=== PATIENT | female | born 1945 | race Caucasian/White ===

== ENCOUNTER 2016-11-18 20:39 | Inpatient (IN) | payer MEDICARE, OTHER ==
[2016-11-18] MEDS ORDERED: IPRATROPIUM 0.5 MG/2.5 ML NEBU INHALATION STA (20:47)
[2016-11-18] MEDS ORDERED: ALBUTEROL NEBULIZED 2.5 MG/3 ML INHALATION STA (20:47)
--- NOTE | 2016-11-18 21:07 | ED ---
General Adult HPI - General Chief complaint: Shortness of Breath Stated complaint: WILDA Time Seen by Provider: 11/18/16 20:46 Source: patient, RN notes reviewed, old records reviewed Mode of arrival: ambulatory Limitations: no limitations - History of Present Illness Initial comments: This is a 62-year-old female to the ER for evaluation. Patient presented today for evaluation shortness of breath. Increasing shortness of breath and cough. Patient does have history of heart disease with stent. Patient states this feels like prior episodes of rigidity as that. Patient also admits that kidney disease. Patient denies any recent fever. No history of COPD and history of smoking. Patient denies any specific. Significant chest pain at this time. - Related Data Home Medications Medication Instructions Recorded Confirmed Cholecalciferol [Vitamin D3] 1,000 unit PO DAILY 03/13/16 11/18/16 Ferrous Sulfate [Iron (65 MG 325 mg PO BID 03/13/16 11/18/16 Elemental)] Furosemide [Lasix] 40 mg PO DAILY 03/13/16 11/18/16 Insulin Glargine [Lantus] 30 unit SQ QAM 03/13/16 11/18/16 amLODIPine BESYLATE [Norvasc] 10 mg PO DAILY 03/13/16 11/18/16 Calcium Acetate [Phoslo] 1,334 mg PO AC-TID 03/14/16 11/18/16 Insulin Aspart [NovoLOG] 0 - 15 unit SQ AC-TID 03/14/16 11/18/16 Aspirin EC [Ecotrin Low Dose] 81 mg PO HS 06/06/16 11/18/16 Cyanocobalamin [Vitamin B-12] 1,000 mcg PO DAILY 06/06/16 11/18/16 Folic Acid-Vit B Complex-Vit C 1 cap PO DAILY 06/06/16 11/18/16 [Nephrocaps] Atorvastatin [Lipitor] 80 mg PO HS 08/05/16 11/18/16 Citalopram Hydrobromide [CeleXA] 20 mg PO DAILY 08/05/16 11/18/16 Previous Rx's Medication Instructions Recorded Clopidogrel [Plavix] 75 mg PO DAILY #30 tab 03/16/16 Nitroglycerin Sl Tabs [Nitrostat] 0.4 mg SUBLINGUAL Q5M PRN #6 tab 04/27/16 Carvedilol [Coreg*] 12.5 mg PO BID-W/MEALS #60 tab 08/09/16 Allergies Allergy/AdvReac Type Severity Reaction Status Date / Time glyburide [From Diabeta] Allergy Rash/Hives Verified 11/18/16 20:44 Review of Systems ROS Statement: Those systems with pertinent positive or pertinent negative responses have been documented in the HPI. ROS Other: All systems not noted in ROS Statement are negative. Past Medical History Past Medical History: Diabetes Mellitus, Dialysis, Hyperlipidemia, Hypertension , Myocardial Infarction (RI), Renal Disease Additional Past Medical History / Comment(s): chronic renal failure stage V with dialysis 3 times a week-lt arm fistual, IDDM, pt states "per dialysis nurse who performed EKG and told pt she had an abnormal EKG and had had a RI in the past" but physician has never confirmed. NSTEMI 03/14/16, peripheral neuropathy bilateral feet cataracts bilaterally, UTI'S. Last Myocardial Infarction Date:: 03/14/16 History of Any Multi-Drug Resistant Organisms: None Reported Past Surgical History: Appendectomy, Cholecystectomy, Heart Catheterization, Heart Catheterization With Stent Additional Past Surgical History / Comment(s): 03/15/16 PTCA with stent to mid LAD,06-07-16 HEART CATH STENT TO PROX RCA. A/V fistula with revision L upper arm Past Anesthesia/Blood Transfusion Reactions: Motion Sickness Date of Last Stent Placement:: 03/15/16 AND 06-07-16 Past Psychological History: Depression Additional Psychological History / Comment(s): Pt resides with her son. She does not use any assistive device and she can drive. Smoking Status: Former smoker Past Alcohol Use History: None Reported Additional Past Alcohol Use History / Comment(s): Pt states she started smoking at age 21 (1965) and was a 5 cigarette a day smoker- she only smoked for about 6 months. Past Drug Use History: None Reported - Past Family History Father Family Medical History: Diabetes Mellitus Additional Family Medical History / Comment(s): Nayan of diabetic complications in his 40's Mother Family Medical History: Cancer, Myocardial Infarction (RI) Additional Family Medical History / Comment(s): Cancer unknown type. Mother of a RI in her early 50's General Exam Limitations: no limitations General appearance: alert, in no apparent distress, anxious, in distress, obese Head exam: Present: atraumatic, normocephalic, normal inspection Eye exam: Present: normal appearance, PERRL, EOMI. Absent: scleral icterus, conjunctival injection, periorbital swelling ENT exam: Present: normal exam, mucous membranes moist Neck exam: Present: normal inspection. Absent: tenderness, meningismus, lymphadenopathy Respiratory exam: Present: normal lung sounds bilaterally, respiratory distress , wheezes, accessory muscle use, decreased breath sounds, prolonged expiratory. Absent: rales, rhonchi, stridor Cardiovascular Exam: Present: normal rhythm, tachycardia, normal heart sounds. Absent: systolic murmur, diastolic murmur, rubs, gallop, clicks GI/Abdominal exam: Present: soft, normal bowel sounds. Absent: distended, tenderness, guarding, rebound, rigid Extremities exam: Present: normal inspection, full ROM, normal capillary refill. Absent: tenderness, pedal edema, joint swelling, calf tenderness Back exam: Present: normal inspection Neurological exam: Present: alert, oriented X3, CN II-XII intact Psychiatric exam: Present: normal affect, normal mood Skin exam: Present: warm, dry, intact, normal color. Absent: rash Course Vital Signs 11/18/16 11/18/16 11/18/16 20:41 20:55 21:24 Temperature 98.0 F Pulse Rate 100 79 Respiratory 28 H 22 Rate Blood Pressure 153/68 O2 Sat by Pulse 86 L Oximetry 11/18/16 21:31 Temperature Pulse Rate 79 Respiratory Rate Blood Pressure O2 Sat by Pulse Oximetry - Reevaluation(s) Reevaluation #1: 11/18/16 22:20 The patient states she does have improvement in her breathing after breathing treatment EKG Findings - EKG Comments: EKG Findings:: EKG shows normal sinus rhythm rate of 88, [place] 190, QRS 90, QTC 517 Medical Decision Making - Medical Decision Making 71 female here presenting with primarily shortness of breath, patient found to be in CHF with fluid overload secondary to renal failure, non-ST elevated RI, patient initially hypoxic improving on oxygen and mildly improved with breathing treatment, at this time not need further intervention including BiPAP will monitor for cardio respiratory resuscitation status, patient also noted to be a hypoglycemic secondary to bowl event, with aspect of dehydration possible DKA. Patient be admitted for insulin drip as well with IV hydration which will be generous S patient is also in CHF, monitoring of electrolytes - Lab Data Result diagrams: 11/18/16 21:10 11/18/16 21:10 Lab Results 11/18/16 11/18/16 11/18/16 Range/Units 21:10 21:10 21:10 WBC 8.3 (3.8-10.6) k/uL RBC 3.89 (3.80-5.40) m/uL Hgb 11.7 (11.4-16.0) gm/dL Hct 37.5 (34.0-46.0) % MCV 96.4 (80.0-100.0) fL MCH 30.0 (25.0-35.0) pg MCHC 31.1 (31.0-37.0) g/dL RDW 14.3 (11.5-15.5) % Plt Count 211 (150-450) k/uL Neutrophils % 71 % Lymphocytes % 15 % Monocytes % 7 % Eosinophils % 5 % Basophils % 1 % Neutrophils # 5.9 (1.3-7.7) k/uL Lymphocytes # 1.3 (1.0-4.8) k/uL Monocytes # 0.5 (0-1.0) k/uL Eosinophils # 0.4 (0-0.7) k/uL Basophils # 0.1 (0-0.2) k/uL PT (9.0-12.0) sec INR (<1.1) APTT (22.0-30.0) sec Sodium 131 L (137-145) mmol/L Potassium 3.7 (3.5-5.1) mmol/L Chloride 91 L (98-107) mmol/L Carbon Dioxide 23 (22-30) mmol/L Anion Gap 17 mmol/L BUN 38 H (7-17) mg/dL Creatinine 5.00 H* (0.52-1.04) mg/dL Est GFR (MDRD) Af Amer 10 (>60 ml/min/1.73 sqM) Est GFR (MDRD) Non-Af 9 (>60 ml/min/1.73 sqM) Glucose 752 H* (74-99) mg/dL Calcium 8.8 (8.4-10.2) mg/dL Magnesium 1.9 (1.6-2.3) mg/dL Total Bilirubin 0.5 (0.2-1.3) mg/dL AST 26 (14-36) U/L ALT 31 (9-52) U/L Alkaline Phosphatase 103 (38-126) U/L Total Creatine Kinase 89 (30-135) U/L CK-MB (CK-2) 1.9 (0.0-2.4) ng/mL CK-MB (CK-2) Rel Index 2.1 Troponin I 0.413 H* (0.000-0.034) ng/mL NT-Pro-B Natriuret Pep pg/mL Total Protein 6.1 L (6.3-8.2) g/dL Albumin 3.5 (3.5-5.0) g/dL 11/18/16 11/18/16 Range/Units 21:10 21:10 WBC (3.8-10.6) k/uL RBC (3.80-5.40) m/uL Hgb (11.4-16.0) gm/dL Hct (34.0-46.0) % MCV (80.0-100.0) fL MCH (25.0-35.0) pg MCHC (31.0-37.0) g/dL RDW (11.5-15.5) % Plt Count (150-450) k/uL Neutrophils % % Lymphocytes % % Monocytes % % Eosinophils % % Basophils % % Neutrophils # (1.3-7.7) k/uL Lymphocytes # (1.0-4.8) k/uL Monocytes # (0-1.0) k/uL Eosinophils # (0-0.7) k/uL Basophils # (0-0.2) k/uL PT 10.1 (9.0-12.0) sec INR 1.0 (<1.1) APTT 17.9 L (22.0-30.0) sec Sodium (137-145) mmol/L Potassium (3.5-5.1) mmol/L Chloride (98-107) mmol/L Carbon Dioxide (22-30) mmol/L Anion Gap mmol/L BUN (7-17) mg/dL Creatinine (0.52-1.04) mg/dL Est GFR (MDRD) Af Amer (>60 ml/min/1.73 sqM) Est GFR (MDRD) Non-Af (>60 ml/min/1.73 sqM) Glucose (74-99) mg/dL Calcium (8.4-10.2) mg/dL Magnesium (1.6-2.3) mg/dL Total Bilirubin (0.2-1.3) mg/dL AST (14-36) U/L ALT (9-52) U/L Alkaline Phosphatase (38-126) U/L Total Creatine Kinase (30-135) U/L CK-MB (CK-2) (0.0-2.4) ng/mL CK-MB (CK-2) Rel Index Troponin I (0.000-0.034) ng/mL NT-Pro-B Natriuret Pep 18023 pg/mL Total Protein (6.3-8.2) g/dL Albumin (3.5-5.0) g/dL - Radiology Data Radiology results: report reviewed (Chest x-rays positive for CHF), image reviewed Critical Care Time Critical Care Time: Yes Total Critical Care Time: 31 Disposition Clinical Impression: Congestive heart failure, Unstable angina pectoris, NSTEMI (non-ST elevated myocardial infarction), ESRD (end stage renal disease), Chest pain, Hyperglycemia, Hypoxia Disposition: ADMITTED IP TO THIS [facility] Condition: Serious Referrals: Jasbir Malone DO [Primary Care Provider] - 1-2 days
--- NOTE | 2016-11-18 21:08 | XR ---
EXAMINATION TYPE: XR chest 1V portable DATE OF EXAM: 11/18/2016 8:59 PM COMPARISON: 08/05/2016 HISTORY: Short of breath and cough TECHNIQUE: Single frontal view of the chest is obtained. FINDINGS: Heart appears enlarged. There is pulmonary interstitial edema. Thoracic aorta is atheromat ous. I see no pleural effusion. Bony thorax appears intact. IMPRESSION: Cardiomegaly. There is new pulmonary edema compared to last exam that is nonspecific and could relate to acute heart failure.
[2016-11-18] MEDS ORDERED: ALBUTEROL NEB (CONC) 2.5 MG/0.5 ML INHALATION STA (21:18)
[2016-11-18] MEDS ORDERED: IPRATROPIUM-ALBUTEROL 3 ML NEB INHALATION STA (21:19)
[2016-11-18 21:21] LABS: Basophils # (A) 0.1 k/uL (0-0.2); Basophils % (A) 1 %; CH 30.8; CHCM 32.1; Eosinophils # (A) 0.4 k/uL (0-0.7); Eosinophils % (A) 5 %; HCT 37.5 % (34.0-46.0); HDW 2.73; HGB 11.7 gm/dL (11.4-16.0); Luc # (Auto) 0.14; Luc % (Auto) 2; Lymphocytes # (A) 1.3 k/uL (1.0-4.8); Lymphocytes % (A) 15 %; MCHC 31.1 g/dL (31.0-37.0); MCV 96.4 fL (80.0-100.0); Mean Platelet Volume 7.8; Monocytes # (A) 0.5 k/uL (0-1.0); Monocytes % (A) 7 %; Neutrophils # (A) 5.9 k/uL (1.3-7.7); Neutrophils % (A) 71 %; RBC 3.89 m/uL (3.80-5.40); RDW 14.3 % (11.5-15.5); WBC 8.3 k/uL (3.8-10.6); WBC (Perox) 8.65
[2016-11-18 21:33] LABS: Potassium 3.7 mmol/L (3.5-5.1)
[2016-11-18 21:34] LABS: Calcium 8.8 mg/dL (8.4-10.2); Magnesium 1.9 mg/dL (1.6-2.3); Total Bilirubin 0.5 mg/dL (0.2-1.3); Total Protein 6.1 g/dL (6.3-8.2)
[2016-11-18 21:40] LABS: Prothrombin Time 10.1 sec (9.0-12.0)
[2016-11-18 21:50] LABS: Partial Thromboplastin Time 17.9 sec (22.0-30.0)
[2016-11-18 21:58] LABS: Creatine Kinase MB 1.9 ng/mL (0.0-2.4)
[2016-11-18 22:02] LABS: Troponin I 0.413 ng/mL (0.000-0.034)
[2016-11-18] MEDS ORDERED: MORPHINE SULFATE 4 MG/ML SYRINGE IV PRN (22:14)
[2016-11-18] MEDS ORDERED: HEPARIN SODIUM,PORCINE 5,000 UNIT/ML 1 ML VIAL IV PRN (22:14)
[2016-11-18] MEDS ORDERED: NITROGLYCERIN SL TABS 0.4 MG TAB SUBLINGUAL PRN (22:14)
[2016-11-18] MEDS ORDERED: ASPIRIN 325 MG TAB PO STA (22:14)
[2016-11-18] MEDS ORDERED: HEPARIN SODIUM,PORCINE 5,000 UNIT/ML 1 ML VIAL IV ONE (22:14)
[2016-11-18 23:08] LABS: Glucose,Whole Blood >600 mg/dL (75-99)
[2016-11-18] MEDS: HEPARIN SODIUM,PORCINE/D5W PMX 25,000 UNIT in DEXTROSE/WATER 1 500ML.BAG IV SCH (23:11)
[2016-11-18] MEDS: FUROSEMIDE 10 MG/ML 4 ML VIAL IV SCH (23:13)
[2016-11-18] MEDS: INSULIN REGULAR 100 UNIT in SODIUM CHLORIDE 0.9% 100 ML IV SCH (23:14)
[2016-11-18] MEDS: SODIUM CHLORIDE 0.9% 1,000 ML IV SCH (23:20)
[2016-11-18 23:59] LABS: Glucose,Whole Blood 590 mg/dL (75-99)
[2016-11-19] MEDS ORDERED: hydrALAZINE HCL 20 MG/ML 1 ML VIAL IVP PRN (00:42)
[2016-11-19 00:51] LABS: Glucose,Whole Blood 590 mg/dL (75-99)
[2016-11-19] MEDS: SODIUM CHLORIDE 0.9% 1,000 ML IV SCH ×4 (01:52→08:28)
[2016-11-19 02:08] LABS: Glucose,Whole Blood 520 mg/dL (75-99)
[2016-11-19 02:57] LABS: Glucose,Whole Blood 479 mg/dL (75-99)
[2016-11-19 03:15] LABS: Creatine Kinase MB 1.8 ng/mL (0.0-2.4)
[2016-11-19 03:28] LABS: Troponin I 0.48 ng/mL (0.000-0.034)
[2016-11-19 03:40] LABS: Anion Gap 15 mmol/L; Blood Urea Nitrogen 43 mg/dL (7-17); Carbon Dioxide 24 mmol/L (22-30); Chloride 92 mmol/L (98-107); Phosphorous 4.3 mg/dL (2.5-4.5); Potassium 3.3 mmol/L (3.5-5.1); Sodium 131 mmol/L (137-145)
[2016-11-19 03:53] LABS: Glucose 596 mg/dL (74-99)
[2016-11-19 03:54] LABS: Non-African American GFR(MDRD) 8 (>60 ml/min/1.73 sqM)
[2016-11-19 04:01] LABS: Glucose,Whole Blood 379 mg/dL (75-99)
[2016-11-19 04:59] LABS: Glucose,Whole Blood 290 mg/dL (75-99)
[2016-11-19 05:51] LABS: Glucose,Whole Blood 200 mg/dL (75-99)
[2016-11-19] MEDS: D5-0.45% NACL WITH KCL 20MEQ/L 1,000 ML IV SCH ×2 (06:10→11:20)
[2016-11-19 06:23] LABS: Basophils # (A) 0.1 k/uL (0-0.2); Basophils % (A) 1 %; CH 30.5; CHCM 33.3; Eosinophils # (A) 0.4 k/uL (0-0.7); Eosinophils % (A) 4 %; HCT 32.5 % (34.0-46.0); HDW 2.72; HGB 10.6 gm/dL (11.4-16.0); Luc % (Auto) 4; Lymphocytes # (A) 2.3 k/uL (1.0-4.8); Lymphocytes % (A) 22 %; MCH 30.1 pg (25.0-35.0); MCHC 32.7 g/dL (31.0-37.0); MCV 92.1 fL (80.0-100.0); Monocytes # (A) 0.7 k/uL (0-1.0); Monocytes % (A) 7 %; Neutrophils # (A) 6.9 k/uL (1.3-7.7); Neutrophils % (A) 64 %; RBC 3.53 m/uL (3.80-5.40); RDW 14.3 % (11.5-15.5); WBC 10.8 k/uL (3.8-10.6); WBC (Perox) 12.08
[2016-11-19 06:58] LABS: Phosphorous 5.2 mg/dL (2.5-4.5); Potassium 3.2 mmol/L (3.5-5.1)
[2016-11-19 07:05] LABS: Creatine Kinase MB 2.2 ng/mL (0.0-2.4)
[2016-11-19 07:12] LABS: Troponin I 0.753 ng/mL (0.000-0.034)
[2016-11-19] MEDS ORDERED: SODIUM CHLORIDE 0.9% 1,000 ML in EMPTY BAG 1 BAG IV ONE (07:27)
[2016-11-19] MEDS ORDERED: ALPRAZolam 0.25 MG TAB PO PRN (07:27)
[2016-11-19] MEDS ORDERED: NITROGLYCERIN SL TABS 0.4 MG TAB SUBLINGUAL PRN (07:27)
[2016-11-19] MEDS ORDERED: ALPRAZolam 0.5 MG TAB PO PRN (07:27)
[2016-11-19] MEDS ORDERED: ATORVASTATIN 80 MG TAB PO STA (07:27)
[2016-11-19] MEDS ORDERED: ASPIRIN 325 MG TAB PO STA (07:27)
[2016-11-19 07:28] LABS: Glucose,Whole Blood 125 mg/dL (75-99)
[2016-11-19] MEDS ORDERED: GELATIN SPONGE,ABSORB (SMALL) 1 EACH SPONGE ONE (08:00)
[2016-11-19] MEDS: INSULIN GLARGINE 100 UNIT/ML 10 ML VIAL SQ SCH ×2 (08:28→13:38)
[2016-11-19] MEDS: hydrALAZINE HCL 25 MG TAB PO SCH ×3 (08:33→21:04)
[2016-11-19] MEDS: CALCIUM ACETATE 667 MG CAP PO SCH ×3 (08:33→16:49)
[2016-11-19 08:34] LABS: Glucose,Whole Blood 80 mg/dL (75-99)
[2016-11-19] MEDS: FOLIC ACID-VIT B COMPLEX-VIT C 1 CAP PO SCH (08:34)
[2016-11-19] MEDS: CHOLECALCIFEROL 1,000 UNIT TAB PO SCH (08:34)
[2016-11-19] MEDS: CLOPIDOGREL 75 MG TAB PO SCH (08:34)
[2016-11-19] MEDS: FERROUS SULFATE 325 MG TAB PO SCH ×2 (08:34→21:04)
[2016-11-19] MEDS: CITALOPRAM HYDROBROMIDE 20 MG TAB PO SCH (08:34)
[2016-11-19] MEDS: CARVEDILOL 12.5 MG TAB PO SCH ×2 (08:34→16:49)
[2016-11-19] MEDS: CYANOCOBALAMIN 500 MCG TAB PO SCH (08:34)
[2016-11-19] MEDS ORDERED: POTASSIUM CHLORIDE ER 20 MEQ TAB.ER PO STA (08:39)
--- NOTE | 2016-11-19 08:43 | P.NPCON ---
History of Present Illness - Reason for Consult end stage renal disease - History of Present Illness Patient is a 62-year-old white female with history of end-stage renal disease on hemodialysis on a Monday schedule. She was admitted to the hospital with complaints of shortness of breath which started yesterday evening. Patient denied any significant chest pain. Her x-ray did show evidence of CHF patient will be dialyzed today however she has been seen by cardiology and she will be scheduled for cardiac catheterization as well for tomorrow. No complaints of nausea vomiting abdominal pain and diarrhea. Review of Systems As per HPI other systems negative Past Medical History Past Medical History: Diabetes Mellitus, Dialysis, Hyperlipidemia, Hypertension , Myocardial Infarction (NE), Renal Disease Additional Past Medical History / Comment(s): chronic renal failure stage V with dialysis 3 times a week-lt arm fistula, IDDM, pt states "per dialysis nurse who performed EKG and told pt she had an abnormal EKG and had had a NE in the past" but physician has never confirmed. NSTEMI 03/14/16, peripheral neuropathy bilateral feet cataracts bilaterally, UTI'S. Last Myocardial Infarction Date:: 06/07/2016 History of Any Multi-Drug Resistant Organisms: None Reported Past Surgical History: Appendectomy, Cholecystectomy, Heart Catheterization, Heart Catheterization With Stent Additional Past Surgical History / Comment(s): 03/15/16 PTCA with stent to mid LAD,06-07-16 HEART CATH STENT TO PROX RCA. A/V fistula with revision L upper arm Past Anesthesia/Blood Transfusion Reactions: No Reported Reaction Date of Last Stent Placement:: 06/07/16 Past Psychological History: Depression Additional Psychological History / Comment(s): Pt resides with her son. She does not use any assistive device and she can drive. Smoking Status: Former smoker Past Alcohol Use History: None Reported Additional Past Alcohol Use History / Comment(s): Pt states she started smoking at age 21 (1965) and was a 5 cigarette a day smoker- she only smoked for about 6 months. Past Drug Use History: None Reported - Past Family History Father Family Medical History: Diabetes Mellitus Additional Family Medical History / Comment(s): Nayan of diabetic complications in his 40's Mother Family Medical History: Cancer, Myocardial Infarction (NE) Additional Family Medical History / Comment(s): Cancer unknown type. Mother of a NE in her early 50's Medications and Allergies Home Medications Medication Instructions Recorded Confirmed Type Cholecalciferol [Vitamin D3] 1,000 unit PO DAILY 03/13/16 11/19/16 History Ferrous Sulfate [Iron (65 MG 325 mg PO BID 03/13/16 11/19/16 History Elemental)] Furosemide [Lasix] 40 mg PO DAILY 03/13/16 11/19/16 History Insulin Glargine [Lantus] 30 unit SQ QAM 03/13/16 11/19/16 History amLODIPine BESYLATE [Norvasc] 10 mg PO DAILY 03/13/16 11/19/16 History Calcium Acetate [Phoslo] 1,334 mg PO AC-TID 03/14/16 11/19/16 History Insulin Aspart [NovoLOG] 0 - 15 unit SQ AC-TID 03/14/16 11/19/16 History Aspirin EC [Ecotrin Low Dose] 81 mg PO HS 06/06/16 11/19/16 History Cyanocobalamin [Vitamin B-12] 1,000 mcg PO DAILY 06/06/16 11/19/16 History Folic Acid-Vit B Complex-Vit C 1 cap PO DAILY 06/06/16 11/19/16 History [Nephrocaps] Atorvastatin [Lipitor] 80 mg PO HS 08/05/16 11/19/16 History Citalopram Hydrobromide [CeleXA] 20 mg PO DAILY 08/05/16 11/19/16 History Allergies Allergy/AdvReac Type Severity Reaction Status Date / Time glyburide [From Diabeta] Allergy Rash/Hives Verified 11/18/16 23:55 Physical Exam Vitals: Vital Signs Temp Pulse Pulse Resp BP BP Pulse Ox 11/19/16 08:00 98.1 F 72 18 166/74 98 11/19/16 04:00 98.7 F 72 16 155/68 93 L 11/19/16 00:00 98.6 F 88 18 166/72 96 11/18/16 23:50 96 11/18/16 23:40 98.3 F 84 18 160/70 96 11/18/16 23:06 98.4 F 85 18 164/74 95 Intake and Output 11/18/16 11/19/16 11/19/16 22:59 06:59 14:59 Intake Total 482.465 187.741 Output Total 150 Balance 332.465 187.741 Intake: IV 222 D5-0.45% NaCl with KCl 50 20Meq/l 1,000 ml @ 150 mls/hr IV .[id number] JONH Rx# :[id number] Heparin Sodium,Porcine/ 120 D5w Pmx 25,000 unit In Dextrose/Water 1 500ml. bag @ 12 UNITS/KG/HR 20. 68 mls/hr IV .Q24H JONH Rx #:[id number] Insulin Regular 100 unit 52 In Sodium Chloride 0.9% 100 ml @ 0.1 UNITS/KG/HR 8.7 mls/hr IV .[id number] JONH Rx#:[id number] Intake, IV Titration 60.465 187.741 Amount Heparin Sodium,Porcine/ 171.989 D5w Pmx 25,000 unit In Dextrose/Water 1 500ml. bag @ 12 UNITS/KG/HR 20. 68 mls/hr IV .Q24H JONH Rx #:[id number] Insulin Regular 100 unit 60.465 15.752 In Sodium Chloride 0.9% 100 ml @ 0.1 UNITS/KG/HR 8.7 mls/hr IV .[id number] JONH Rx#:[id number] Oral 200 Output: Urine 150 Other: Voiding Method Toilet Weight 87.1 kg On examination blood pressure is 166/74 heart rate 72/m patient is afebrile Examination of the heart S1 and S2 Examination lungs bilateral breath sounds are heard with basal crackles heard bilaterally Examination of the abdomen reveals it to be soft obese nontender Examination of lower extremities shows no significant edema [employer] exam is grossly intact. Patient is able to move all 4 extremities. Results - Lab Results Most recent lab results Calcium 8.8 mg/dL (8.4-10.2) 11/18/16 21:10 Phosphorus 5.2 mg/dL (2.5-4.5) H 11/19/16 05:49 Magnesium 1.9 mg/dL (1.6-2.3) 11/18/16 21:10 11/19/16 05:49 11/19/16 05:49 Assessment and Plan Plan: Assessment 1. End-stage renal disease on hemodialysis on a Monday schedule via left arm AV fistula. Patient will be scheduled for hemodialysis today with increase UF as tolerated. 2. CHF/fluid overload rule out cardiac ischemia patient is scheduled for catheterization tomorrow she has been evaluated by cardiology. 3. Anemia of chronic disease maintained on OPAL as outpatient 4. Hyperglycemia, patient was being treated for DKA. She was receiving fluids at about 50 mL an hour. Anion gap was 17 it is now down to 13 however serum acetone levels have been negative. We can Hep-Lock the IV fluids since patient is in CHF. Blood sugars are now down to around 1 25 mg/dL. 5. Hypokalemia, will replace Plan Hemodialysis today, increase UF as tolerated. Hep-Lock IV fluids, replace potassium. Agree with cardiac catheterization. Thank you for this consultation we'll continue to follow the patient with you during her hospitalization
[2016-11-19 09:00] LABS: Glucose,Whole Blood 98 mg/dL (75-99)
[2016-11-19] MEDS ORDERED: ASPIRIN 325 MG TAB PO SCH (09:00)
[2016-11-19 09:34] LABS: Glucose,Whole Blood 121 mg/dL (75-99)
[2016-11-19] MEDS: INSULIN REGULAR 100 UNIT in SODIUM CHLORIDE 0.9% 100 ML IV SCH (09:35)
[2016-11-19 10:33] LABS: Glucose,Whole Blood 162 mg/dL (75-99)
[2016-11-19 10:41] LABS: Magnesium 1.9 mg/dL (1.6-2.3)
[2016-11-19 11:14] LABS: Calcium 9.3 mg/dL (8.4-10.2)
[2016-11-19 11:21] LABS: Potassium 4.3 mmol/L (3.5-5.1)
[2016-11-19] MEDS: FUROSEMIDE 10 MG/ML 4 ML VIAL IV SCH (11:28)
[2016-11-19 11:36] LABS: Glucose,Whole Blood 158 mg/dL (75-99)
[2016-11-19 12:32] LABS: Glucose,Whole Blood 150 mg/dL (75-99)
[2016-11-19 13:30] LABS: Hemoglobin A1C 10.6 % (4.2-6.1)
[2016-11-19 13:34] LABS: Glucose,Whole Blood 154 mg/dL (75-99)
[2016-11-19 14:51] LABS: Calcium 9.5 mg/dL (8.4-10.2); Potassium 4.6 mmol/L (3.5-5.1)
--- NOTE | 2016-11-19 15:03 | HP ---
DATE OF ADMISSION: 11/18/2016 I am covering for Dr. Malone. CHIEF COMPLAINT: Shortness of breath and chest pain. HISTORY OF PRESENT ILLNESS: This 71-year-old woman with a past medical history of multiple medical problems of diabetes mellitus, chronic kidney disease, hypertension, myocardial infarction, history of coronary artery disease and stent being followed by Dr. Jasbir Malone in the outpatient setting was seen in the [facility] for complaints of shortness of breath and chest pain. This morning, the patient was not feeling well, the patient is not taking insulin. Chest pain was felt in the anterior part of the chest and patient also had shortness of breath. The patient came to [facility] in the ER and chest x-ray showed cardiomegaly and pulmonary edema. The patient also had a troponin elevated up to 0.413. Glucose elevated to 752,000. The CO2 was 23 and anion gap was 79 and ketones were negative. The patient was admitted to the hospital for further evaluation and treatment. Insulin drip was initiated. There is no history of fever, rigors or chills. No history of headache, loss of consciousness or seizures. PAST MEDICAL HISTORY: History of diabetes mellitus, history of chronic kidney disease, hypertension, myocardial infarction. Medications prior to admission include: 1. Lipitor 80 mg p.o. q.h.s. 2. Ecotrin 81 mg. 3. Norvasc 10 mg daily. 4. Nitrostat 0.4 sublingual p.r.n. 5. Lantus 30 units subcu 6. Novolog a.c. t.i.d. 7. Lasix 40 mg daily. 8. Nephrocaps 1 p.o. daily. 9. Iron 320 mg p.o. b.i.d. 10. Vitamin B12 1000 mcg p.o. daily. 11. Plavix 75 milligrams p.o. daily. 12. Celexa 20 mg p.o. daily. 13. Vitamin D3 1000 daily. 14. Coreg 12.5 mg t.i.d. with meals. 15. PhosLo 34 mg a.c. t.i.d. ALLERGIES: ntd. FAMILY HISTORY: History of diabetes mellitus in the family. SOCIAL HISTORY: Previous history of smoking. No history of alcohol. No history of current smoking. REVIEW OF SYSTEMS: ENT: No diminished hearing or vision. CARDIOVASCULAR: As mentioned earlier. RESPIRATORY: As mentioned earlier. GI: No nausea. No vomiting. : No dysuria. Nervous system: No numbness, weakness. ALLERGY/IMMUNOLOGY: No asthma or hayfever. MUSCULOSKELETAL: As mentioned earlier. HEMATOLOGY/ONCOLOGY: No history of anemia. ENDOCRINE: As mentioned earlier. CONSTITUTIONAL: As mentioned earlier. DERMATOLOGY: Negative. RHEUMATOLOGY: Negative. PSYCHIATRY: As mentioned earlier. PHYSICAL EXAMINATION: Patient is alert and oriented x3. Pulse is 85, blood pressure 160/70, respirations 18, temperature 98.4, pulse ox 94% on 2 liters. Pulse ox 97% on room air. HEENT: Conjunctivae normal. Oral mucosa moist. NECK: No jugular venous distention. No lymph node enlargement. No carotid bruit. RESPIRATORY: Breath sounds diminished at the bases. A few scattered rhonchi and crackles. CARDIOVASCULAR: S1, S2 muffled, ejection systolic murmur. ABDOMEN: Soft. Obese. Nontender. LEGS: Minimal edema. Nervous system: Higher functions as mentioned earlier. Moves all four limbs. No focal deficits. LYMPHATICS: No lymph nodes palpable in the neck, axillae or groin. SKIN: No ulcer, rash or bleeding. Labs are CBC within normal limits and sodium 31 and creatinine is 5. The blood sugars are 752. ASSESSMENT: 1. Shortness of breath congestive heart failure acute exacerbation, with ejection fraction unknown. 2. Troponin 0.413, rule out acute non-ST segment elevation myocardial infarction. 3. Diabetes mellitus type 2, uncontrolled hyperosmolar state with no evidence of ketosis. 4. Chronic renal failure, chronic kidney Stage 5 on hemodialysis. 5. Hyponatremia. 6. Obesity with body mass index 34.8. 7. Diabetes mellitus type 2. 8. Hyperlipidemia. 9. Hypertension. 10. History of myocardial infarction. 11. History of appendectomy. 12. History of cholecystectomy. 13. History of coronary artery disease. 14. History of depression. RECOMMENDATIONS AND DISCUSSION: In this 71-year-old woman who presented with multiple complex medical issues, we will monitor the patient closely. Continue the current medications. Continue symptomatic treatment. We will initiate home medications. Monitor blood sugars closely. Otherwise antiplatelet agents. Closely follow with cardiology and as well as nephrology. Repeat labs will be ordered. Guarded prognosis because of multiple complex medical issues. Further recommendations to follow. A copy of dictation forwarded to Dr. Malone who is the primary care physician. LEA
--- NOTE | 2016-11-19 15:30 | ECHOF ---
Referral Reason:chf MEASUREMENTS -------- HEIGHT: 157.5 cm WEIGHT: 87.1 kg BP: 155/68 RVIDd: 2.4 cm (< 3.3) IVSd: 1.0 cm (0.6 - 1.1) LVIDd: 4.6 cm (3.9 - 5.3) LVPWd: 1.1 cm (0.6 - 1.1) IVSs: 1.5 cm LVIDs: 3.1 cm LVPWs: 1.7 cm LA Diam: 3.8 cm (2.7 - 3.8) LAESV Index (A-L): 28.06 ml/m Ao Diam: 3.0 cm (2.0 - 3.7) AV Cusp: 1.9 cm (1.5 - 2.6) MV EXCURSION: 13.970 mm (> 18.000) MV EF SLOPE: 27 mm/s (70 - 150) EPSS: 1.1 cm MV E Harsha: 1.28 m/s MV DecT: 236 ms MV A Harsha: 1.06 m/s MV E/A Ratio: 1.20 AV maxP.14 mmHg AV meanP.75 mmHg FINDINGS -------- Sinus rhythm. This was a technically good study. The left ventricular size is normal. There is borderline concentric left ventricular hypertrophy. Overall left ventricular systolic function is normal with, an EF between 55 - 60 %. The right ventricle is normal in size and function. The left atrium is normal in size. Normal LA size by volume 22+/-6 ml/m2. The right atrium is normal in size. There is mild aortic valve sclerosis. There is mild aortic stenosis present. Peak/mean gradient across the Aortic Valve is 14.14mmHg / 7.75mmHg. The mitral valve leaflets are mildly thickened. Moderate mitral annular calcification present. [id number] mitral regurgitation is present. Mild tricuspid regurgitation present. The pulmonic valve was not well visualized. The aortic root size is normal. Normal inferior vena cava with normal inspiratory collapse consistent with estimated right atrial pressure of 5 mmHg. There is no pericardial effusion. CONCLUSIONS -------- 1. Sinus rhythm. 2. Moderate mitral annular calcification present. 3. [id number] mitral regurgitation is present. 4. Mild tricuspid regurgitation present. 5. The pulmonic valve was not well visualized. 6. The aortic root size is normal. 7. There is no pericardial effusion. 8. This was a technically good study. 9. There is borderline concentric left ventricular hypertrophy. 10. Overall left ventricular systolic function is normal with, an EF between 55 - 60 %. 11. The left atrium is normal in size. 12. There is mild aortic valve sclerosis. 13. There is mild aortic stenosis present. 14. Peak/mean gradient across the Aortic Valve is 14.14mmHg / 7.75mmHg. 15. The mitral valve leaflets are mildly thickened. AGRICULTURAL AGENT: Aurora Mulligan RDCS
--- NOTE | 2016-11-19 16:35 | CONS ---
DATE OF CONSULTATION: ATTENDING DOCTOR: Dr. Malone. Mrs. Bloom is a 71-year-old female with a known history of coronary artery disease, who presented with symptoms of dyspnea and cough. She had minimal chest discomfort. Her cardiac history is remarkable for the fact that in February of this year she underwent stenting of her LAD. She had significant disease in the right coronary artery and was readmitted in May with symptoms of chest discomfort, underwent repeat cardiac catheterization by Dr. Mari Hernandez and angioplasty and stenting of the right coronary artery using a 8 mm 2.75 Xience stent. She had disease in the left circumflex that was felt to be nonsignificant. She has done reasonably well from the cardiac standpoint. According to her yesterday she felt more short of breath and started to have cough. She was also having some mild discomfort, although the discomfort was not as severe. She has chronic peripheral edema and stable sleep orthopnea. She has no dizziness, palpitation or syncope. She has a history of chronic renal disease with end-stage renal disease on hemodialysis and she is scheduled to undergo dialysis today. She has not skipped any of her dialysis in the last week. Her coronary risk factors are positive for hypertension, hyperlipidemia, and diabetes. She is a nonsmoker. Her medications at home included aspirin, amlodipine 10 mg daily, insulin, furosemide 40 mg daily, iron, Plavix 75 mg daily, Coreg 12.5 mg twice a day, Lipitor 80 mg daily and PhosLo. REVIEW OF SYSTEMS: RESPIRATORY SYSTEM: She has no documented history of asthma. GI SYSTEM: No recent GI bleeding. No peptic ulcer disease. No nausea. : She has end-stage renal disease on hemodialysis yet she continues to have urine output. NERVOUS SYSTEM: No stroke or seizure. PHYSICAL EXAMINATION: She is a 71-year-old female, alert, oriented, in no apparent distress. Blood pressure 155/60 with a heart in the 70s. HEAD: Normocephalic. EYES: Sclerae anicteric. NECK: Good upstroke. No bruit. LUNGS: With crackles at the bases and rales. HEART: Regular rate and rhythm. S1, S2, no S3, with systolic murmur. No diastolic murmur. No rub. ABDOMEN: Soft, nontender, positive bowel sounds. No organomegaly. EXTREMITIES: +1 edema bilaterally. LAB DATA: EKG revealed a sinus mechanism, normal axis and intervals with minor nonspecific ST-T wave changes. The chest x-ray is consistent with congestive heart failure. Lab data revealed a BUN and creatinine 38 and 5.08. Potassium 3.7, hemoglobin 11.7. Her blood sugar is 752. Troponin of 0.413 with an NT-proBNP of 18,800. Her subsequent troponin of 0.48 and then subsequently 0.75. This morning the patient's potassium is 3.3. BUN and creatinine 43 and 5.1. IMPRESSION: 1. Symptoms of acute dyspnea with evidence of congestive heart failure. Patient in the past had an ejection fraction of 51% by gated SPECT images. 2. Possible non- ST segment elevation myocardial infarction. 3. Diabetes mellitus with significantly elevated blood sugar on admission, with negative acetone. 4. End-stage renal disease on hemodialysis. 5. Hypertension. 6. Hyperlipidemia. RECOMMENDATIONS: Patient will undergo her dialysis today as scheduled. I would re-evaluate tomorrow. Probably she will require repeat coronary angiography to assess her status and guide her treatment. The rationale behind that, as well as risks and complications were discussed with the patient, who is in full understanding and agreement. Thank you for this consult. We will follow with you
[2016-11-19 16:54] LABS: Glucose,Whole Blood 168 mg/dL (75-99)
[2016-11-19] MEDS: INSULIN LISPRO (humaLOG) 300 UNIT/3 ML VIAL SQ SCH ×2 (17:22→21:05)
[2016-11-19 21:07] LABS: Glucose,Whole Blood 174 mg/dL (75-99)
[2016-11-20] MEDS: SODIUM CHLORIDE 0.9% 1,000 ML IV SCH ×2 (00:35→21:33)
[2016-11-20] MEDS: FUROSEMIDE 10 MG/ML 4 ML VIAL IV SCH (00:37)
[2016-11-20] MEDS: HEPARIN SODIUM,PORCINE/D5W PMX 25,000 UNIT in DEXTROSE/WATER 1 500ML.BAG IV SCH (00:39)
[2016-11-20 06:51] LABS: Glucose,Whole Blood 256 mg/dL (75-99)
[2016-11-20] MEDS: hydrALAZINE HCL 25 MG TAB PO SCH ×3 (06:59→23:26)
[2016-11-20] MEDS: FOLIC ACID-VIT B COMPLEX-VIT C 1 CAP PO SCH (07:00)
[2016-11-20] MEDS: ASPIRIN 325 MG TAB PO SCH (07:00)
[2016-11-20] MEDS: FERROUS SULFATE 325 MG TAB PO SCH ×2 (07:00→21:44)
[2016-11-20] MEDS: CLOPIDOGREL 75 MG TAB PO SCH (07:00)
[2016-11-20] MEDS: CHOLECALCIFEROL 1,000 UNIT TAB PO SCH (07:00)
[2016-11-20] MEDS: INSULIN LISPRO (humaLOG) 300 UNIT/3 ML VIAL SQ SCH ×4 (07:00→21:44)
[2016-11-20] MEDS: CYANOCOBALAMIN 500 MCG TAB PO SCH (07:00)
[2016-11-20] MEDS: CITALOPRAM HYDROBROMIDE 20 MG TAB PO SCH (07:00)
[2016-11-20] MEDS: CARVEDILOL 12.5 MG TAB PO SCH ×2 (07:00→17:21)
[2016-11-20 07:46] LABS: Basophils # (A) 0.1 k/uL (0-0.2); Basophils % (A) 1 %; CH 30.2; CHCM 32.6; Eosinophils # (A) 0.5 k/uL (0-0.7); Eosinophils % (A) 5 %; HCT 37.5 % (34.0-46.0); HDW 2.66; HGB 12.2 gm/dL (11.4-16.0); Luc # (Auto) 0.28; Luc % (Auto) 3; Lymphocytes # (A) 1.8 k/uL (1.0-4.8); Lymphocytes % (A) 18 %; MCH 30.4 pg (25.0-35.0); MCHC 32.6 g/dL (31.0-37.0); MCV 93.2 fL (80.0-100.0); Mean Platelet Volume 7.4; Monocytes # (A) 0.6 k/uL (0-1.0); Monocytes % (A) 6 %; Neutrophils # (A) 6.8 k/uL (1.3-7.7); Neutrophils % (A) 68 %; RBC 4.02 m/uL (3.80-5.40); RDW 14.5 % (11.5-15.5); WBC (Perox) 10.89
[2016-11-20 08:16] LABS: Calcium 8.9 mg/dL (8.4-10.2)
[2016-11-20 10:21] LABS: Glucose,Whole Blood 238 mg/dL (75-99)
--- NOTE | 2016-11-20 10:24 | PN ---
DATE OF SERVICE: 11/19/2016 I am covering for Dr. Malone. This 71-year-old woman who was admitted with shortness of breath, congestive heart failure acute exacerbation had ejection fraction about 55 to 60% in the 2D echo indicating diastolic dysfunction and also the patient had mild to moderate mitral regurgitation and mild tricuspid regurgitation. as well as mild aortic stenosis also noted with peak mean gradient 14 and 7. The patient of interest, the patient also has elevated troponin up to 0.753 indicating the possibility of acute coronary syndrome. Cardiology is evaluating the patient as well as nephrology. Cardiology is recommending cardiac catheterization to guide further treatment. No chest pain. No palpitation. Past medical history reviewed. REVIEW OF SYSTEMS: CARDIOVASCULAR: As mentioned earlier. RESPIRATORY: As mentioned earlier. GI: No nausea. : No dysuria. Nervous system: as mentioned earlier. Current medications are reviewed and include: 1. Xanax 0.5 q.6 p.r.n. 2. Aspirin 320 mg daily. 3. Lipitor 80 mg q.h.s. 4. PhosLo 1334 t.i.d. 5. Coreg 12.5 mg b.i.d. 6. Vitamin D3 1000. 7. Celexa 20 mg daily. 8. Plavix 75 milligrams daily. 9. Vitamin B12 1000 mg daily. 10. Iron sulfate 325 mg daily. 11. Lasix 40 milligram IV b.i.d. 12. Heparin b.i.d. 13. Lantus 30 units q.a.m. 14. Novolog a.c. and at bedtime. 15. Nephrocaps. 16. Nitrostat. PHYSICAL EXAMINATION: Patient is alert and oriented times three, pulse 67, blood pressure 170/72, respiratory rate 18, temperature 98.2. Pulse ox 94% on room air. HEENT: Conjunctivae normal. NECK: No jugular venous distention. CARDIOVASCULAR: S1, S2 muffled. RESPIRATORY: Breath sounds diminished at the bases. A few scattered rhonchi and crackles. ABDOMEN: Soft, nontender. No mass palpable. Legs: No edema. No swelling. CENTRAL NERVOUS SYSTEM: Higher functions as mentioned earlier. Moves all four limbs. LYMPHATICS: No lymph nodes palpable in the neck, axillae or groin. SKIN: No ulcer, rash or bleeding. LABS: WBC , hemoglobin 10.6, creatinine is Troponin is noted. ASSESSMENT: 1. Shortness of breath with possible congestive heart failure exacerbation with acute on chronic diastolic dysfunction, ejection 55% to 60%. 2. Troponin 0.753, possible acute non-ST elevation myocardial infarction. 3. Diabetes mellitus type 2, uncontrolled with hyperosmolar state with no evidence of ketoacidosis. 4. Chronic renal failure and chronic kidney disease, stage V on hemodialysis. 5. Hyponatremia. 6. Obesity with a body mass index . 7. Diabetes mellitus type 2, history. 8. Hyperlipidemia. 9. Hypertension. 10. Myocardial infarction. 11. History of appendectomy. 12. History of cholecystectomy. 13. History of coronary artery disease. 14. History of depression. 15. FULL CODE. RECOMMENDATION: In this 71-year-old woman who presented with multiple complex medical issues, we will monitor the patient closely. Continue the current medications and continue symptomatic treatment. Otherwise, at this time I would recommend antiplatelet agents. Also continue the Lipitor, Corgard and Plavix, cardiac catheterization. Continue hemodialysis. Monitor blood pressure closely. Prognosis guarded because of multiple issues. Further recommendations to follow. Discussed with the patient. I also recommend to stop the insulin drip and titrate the patient's home dose of Lantus and scale also. Further recommendations to follow. MTDD
[2016-11-20 11:17] LABS: Hemoglobin A1C 10.8 % (4.2-6.1)
[2016-11-20] MEDS: CALCIUM ACETATE 667 MG CAP PO SCH ×3 (11:22→17:21)
[2016-11-20 11:52] LABS: Glucose,Whole Blood 222 mg/dL (75-99)
[2016-11-20] MEDS ORDERED: SODIUM CHLORIDE 0.9% (PF) 10 ML VIAL ONE (12:22)
[2016-11-20] MEDS ORDERED: LIDOCAINE 2% INJ 20 MG/ML (20 ML MDV) ONE (12:22)
[2016-11-20] MEDS ORDERED: fentaNYL (PF) 50 MCG/ML 2 ML AMP ONE (12:22)
[2016-11-20] MEDS ORDERED: diphenhydrAMINE 50 MG/ML 1 ML VIAL ONE (12:22)
[2016-11-20] MEDS ORDERED: HEPARIN SODIUM,PORCINE 30 ML 30 ML ONE (12:23)
[2016-11-20] MEDS ORDERED: VERAPAMIL 2.5 MG/ML 2 ML AMP ONE (12:23)
[2016-11-20] MEDS ORDERED: IV FLUID CONTINUATION 900 ML IV ONE ×2 (12:50)
[2016-11-20] MEDS ORDERED: diphenhydrAMINE 50 MG/ML 1 ML VIAL IVP ONE (13:03)
[2016-11-20] MEDS ORDERED: fentaNYL (PF) 50 MCG/ML 2 ML AMP IV ONE (13:06)
[2016-11-20] MEDS ORDERED: LIDOCAINE 2% INJ 20 MG/ML SQ ONE ×2 (13:20→13:21)
[2016-11-20] MEDS ORDERED: BIVALIRUDIN 250 MG in SODIUM CHLORIDE 0.9% 50 ML IV ONE (13:32)
[2016-11-20] MEDS ORDERED: BIVALIRUDIN BOLUS 250 MG/50 ML IV ONE (13:32)
[2016-11-20] MEDS ORDERED: NITROGLYCERIN 1000MCG/10ML SYRINGE INTRAARTER ONE (13:40)
--- NOTE | 2016-11-20 13:59 | PN ---
Patient is seen for follow-up for end-stage renal disease. She was admitted to the hospital with significant shortness of breath. We had about 3 liters of ultrafiltration yesterday with dialysis. Patient is scheduled for cardiac catheterization today. She denies any significant complaints this morning. Blood pressure is 159/72, heart rate 63 per minute. She is afebrile. Examination of the heart S1 and S2. Examination of the lungs: Bilateral breath sounds are heard. ABDOMEN: Soft, nontender. Examination of lower extremities shows no significant edema. [employer] exam is grossly intact. Labs show sodium of 131, potassium 4.0, hemoglobin 12.2 g/dL. ASSESSMENT: 1. End-stage renal disease on hemodialysis on a Monday, , Monday schedule status post hemodialysis yesterday with 3 liters of ultrafiltration. 2. Congestive heart failure, fluid overload, currently improved; however, patient is high risk for significant coronary artery disease. She is scheduled for cardiac catheterization today. 3. Hypertension, currently controlled. Improve post dialysis and ultrafiltration. 4. Chronic kidney disease bone mineral disorder, currently stable. Continue the PhosLo. PLAN: Repeat electrolytes in a.m. Will re-evaluate tomorrow for need for dialysis depending on her volume status.
[2016-11-20] MEDS ORDERED: ZOLPIDEM 5 MG TAB PO PRN (14:03)
[2016-11-20] MEDS ORDERED: NITROGLYCERIN SL TABS 0.4 MG TAB SUBLINGUAL PRN (14:03)
[2016-11-20] MEDS ORDERED: MAG HYDROX/AL HYDROX/SIMETH 30 ML CUP PO PRN (14:03)
[2016-11-20] MEDS ORDERED: RX INFO: IV CONTRAST WAS GIVEN 1 EACH MISC MISCELLANE PRN (14:03)
[2016-11-20] MEDS ORDERED: SODIUM CHLORIDE 0.9% 1,000 ML IV SCH (14:15)
[2016-11-20] MEDS ORDERED: IODIXANOL 320 MG/ML 100 ML INTRAARTER ONE (14:21)
[2016-11-20] MEDS: INSULIN GLARGINE 100 UNIT/ML 10 ML VIAL SQ SCH (15:03)
[2016-11-20] MEDS: ISOSORBIDE MONONITRATE ER 30 MG TAB.ER.24H PO SCH (15:04)
[2016-11-20 15:09] LABS: Glucose,Whole Blood 189 mg/dL (75-99)
[2016-11-20 16:55] LABS: Glucose,Whole Blood 199 mg/dL (75-99)
[2016-11-20 21:28] LABS: Glucose,Whole Blood 265 mg/dL (75-99)
[2016-11-20] MEDS: ATORVASTATIN 80 MG TAB PO SCH (21:44)
[2016-11-20] MEDS: FUROSEMIDE 40 MG TAB PO SCH (21:44)
[2016-11-20] MEDS ORDERED: ATROPINE SULFATE 0.1 MG/ML 10ML SYRINGE ONE (22:31)
[2016-11-21 06:20] LABS: Glucose,Whole Blood 212 mg/dL (75-99)
[2016-11-21] MEDS: CARVEDILOL 12.5 MG TAB PO SCH ×2 (07:09→17:05)
[2016-11-21] MEDS: INSULIN LISPRO (humaLOG) 300 UNIT/3 ML VIAL SQ SCH ×4 (07:09→21:15)
[2016-11-21] MEDS: CALCIUM ACETATE 667 MG CAP PO SCH ×3 (07:09→17:05)
[2016-11-21 07:26] LABS: Basophils % (A) 0 %; CH 30.4; CHCM 32.7; Eosinophils # (A) 0.3 k/uL (0-0.7); Eosinophils % (A) 4 %; HCT 36.5 % (34.0-46.0); HDW 2.72; HGB 11.5 gm/dL (11.4-16.0); Luc # (Auto) 0.21; Luc % (Auto) 2; Lymphocytes # (A) 1.3 k/uL (1.0-4.8); Lymphocytes % (A) 15 %; MCH 29.5 pg (25.0-35.0); MCHC 31.6 g/dL (31.0-37.0); MCV 93.4 fL (80.0-100.0); Mean Platelet Volume 8.4; Monocytes # (A) 0.6 k/uL (0-1.0); Monocytes % (A) 7 %; Neutrophils # (A) 6.4 k/uL (1.3-7.7); Neutrophils % (A) 72 %; RDW 14.9 % (11.5-15.5); WBC 8.9 k/uL (3.8-10.6); WBC (Perox) 8.85
[2016-11-21 07:53] LABS: Potassium 4.1 mmol/L (3.5-5.1)
--- NOTE | 2016-11-21 08:42 | PTCA ---
DATE OF SERVICE: Mrs. Bloom is a 71-year-old female with known history of coronary artery heart disease, who presented with symptoms of Non-STEMI as well as congestive heart failure underwent cardiac catheterization, was found to have restenosis in the LAD stent. In view of that, recommendation made regarding coronary angioplasty and stenting. The procedure as well as the risks and complications were discussed with the patient who is in full understanding and agreement. PROCEDURE: A 6 Vietnamese XB 3-1/2 guiding catheter introduced into the system. After cannulating the left main, of 0.014 balanced medium weight J-wire was advanced across the lesion, positioned distally. Then a 2.5 x 12 mm Trek balloon was advanced. One inflation at 10 atmospheres as done. Following that the balloon was removed. Following that, a 2.5 x 15 mm Xience Alpine stent was deployed, postdilated at 14 atmospheres. Following that, the balloon was removed and a 2.75 x 8 mm NC trek balloon was advanced and one inflation, the proximal segment of the stent was done at a maximum of 14 atmospheres. After the last inflation, after appropriate wait, the balloon and the guidewire were withdrawn back in the guiding catheter. Images were obtained and repeated. Those images reveal stable successful stenting. At that point, the guiding catheter, the balloon and the guidewire were removed. The sheath was sutured in place. The patient was returned to her room in stable condition. Of note that she had EKG changes that improved, but no chest discomfort. She received Angiomax per protocol. RESULT: Successful stenting of restenosis of the mid left anterior descending with reduction in stenosis from 99% to less 5%. RECOMMENDATION: Patient will be continued on aspirin, Plavix, beta tone and statin. The importance of dual antiplatelet treatment were discussed with the patient and her family who were in full understanding and agreement.
--- NOTE | 2016-11-21 08:44 | CC ---
DATE OF SERVICE: Ms. Bloom is a 71-year-old female with known history of end-stage renal disease on hemodialysis, history of hypertension, hyperlipidemia, history of coronary artery disease, who underwent stenting of her LAD and right coronary artery in February and May of this year, who presented with symptoms of chest discomfort and congestive heart failure with mild elevation of her troponin. In view of that, recommendation made regarding cardiac catheterization. The procedure as well as the risks and complications were discussed with the patient who is in full understanding and agreement. PROCEDURE: Patient was brought to the microbiology lab analyst in fasting semi state after receiving fentanyl and Benadryl. She was draped and prepped in conventional fashion. Using Xylocaine anesthesia and Seldinger technique, a 6 Lithuanian sheath was introduced in the right femoral artery. Selective right and left coronary angiography was performed with 6 Lithuanian 4 bend right Yessy catheter. Multiple views of the coronary arteries including hemiaxial views obtained. Following that, a 6 Lithuanian tight pigtail catheter was introduced into the left ventricle and pressures were calculated. Following that, the catheter was removed. Images were reviewed. FINDINGS: FLUOROSCOPY: There is severe calcification involving all of the coronary tree. LEFT MAIN: This is a large-size vessel bifurcating into left circumflex and left anterior descending artery. Left main coronary artery has a 20% plaque distally. The rest of the vessel has no high-grade stenosis. LEFT ANTERIOR DESCENDING ARTERY: This is a large heavily calcified vessel reaching toward the apex with a wrap around the apex segment, giving rise to a large diagonal branch in the mid segment. The stented segment in the mid LAD after the take off diagonal branch has a 99% stenosis. The diagonal branch has 40 to 50% plaque. The rest of the vessel has intimal disease without any evidence of high-grade stenosis. LEFT CIRCUMFLEX: This is a nondominant vessel, moderate caliber, giving rise to a moderately sized obtuse marginal branch. The take off of the left circumflex is heavily calcified and has a 95% stenosis. The rest of the vessel has no high-grade stenosis. RIGHT CORONARY ARTERY: This is a large dominant vessel, bifurcating into PDA posterior segment and branches. The proximal stented segment in the right coronary artery is patent, has a 30 to 40% plaque. The rest of the vessel has intimal disease without any evidence of high-grade stenosis. LEFT VENTRICULOGRAM: Left ventriculogram was not performed. HEMODYNAMICS: There was no gradient across the aortic valve. The left ventricular end-diastolic was 18 to 20 mmHg. CONCLUSION: 1. Heavily calcified coronary arteries. 2. Restenosis in the mid left anterior descending stented segment. 3. Significant disease in the ostium of the left circumflex that is chronic. 4. Mild disease in the right coronary artery. RECOMMENDATIONS: In view of the findings and anatomy, I recommend proceeding with angioplasty and stenting of the LAD. The procedure as well as the risks and complications were discussed with the patient who is in full understanding and agreement.
--- NOTE | 2016-11-21 08:59 | LTR ---
November 20, 2016 RE: WolfMargarita Dear Dr. Malone: I had the pleasure of performing cardiac catheterization and coronary angioplasty and stenting on Mrs. Bloom at [facility] on the first november. A full copy of procedure note will be forwarded to you. In brief, she was found to have in-stent restenosis of her mid LAD. Underwent successful stenting of that vessel. I am hopeful that this procedure will stable her status. Thank you again for allowing me to participate in her care. Please feel free to call for any questions. Sincerely, ARTURO VASQUEZ MD
[2016-11-21] MEDS: CITALOPRAM HYDROBROMIDE 20 MG TAB PO SCH (09:47)
[2016-11-21] MEDS: CHOLECALCIFEROL 1,000 UNIT TAB PO SCH (09:47)
[2016-11-21] MEDS: ASPIRIN 325 MG TAB PO SCH (09:47)
[2016-11-21] MEDS: CLOPIDOGREL 75 MG TAB PO SCH (09:47)
[2016-11-21] MEDS: INSULIN GLARGINE 100 UNIT/ML 10 ML VIAL SQ SCH (09:47)
[2016-11-21] MEDS: CYANOCOBALAMIN 500 MCG TAB PO SCH (09:48)
[2016-11-21] MEDS: FOLIC ACID-VIT B COMPLEX-VIT C 1 CAP PO SCH (09:49)
[2016-11-21] MEDS: FERROUS SULFATE 325 MG TAB PO SCH ×2 (09:49→20:08)
[2016-11-21 11:31] LABS: Glucose,Whole Blood 240 mg/dL (75-99)
[2016-11-21] MEDS: FUROSEMIDE 40 MG TAB PO SCH ×2 (11:58→17:06)
--- NOTE | 2016-11-21 12:55 | PN ---
DATE OF SERVICE: 11/20/2016 I am covering for Dr. Malone. This 71-year-old woman was admitted with shortness of breath also had acute non-ST elevation myocardial infarction. Patient had cardiac catheterization and stenting of the left anterior descending today. No chest pain. No palpitation. No fever. On exam, alert and oriented x3. Pulse is 80, blood pressure is 120/52, respirations 18, temperature 98 degrees, pulse ox is 100% on room air. HEENT: Conjunctivae normal. NECK: No jugular venous distention. CARDIOVASCULAR: S1 and S2, muffled. RESPIRATORY: Breath sounds diminished at the bases. A few scattered rhonchi and crackles. ABDOMEN: Soft, nontender, obese. LEGS: No edema, no swelling. NERVOUS SYSTEM: No focal deficits. LABS: Creatinine is 3.80. ASSESSMENT: 1. Shortness of breath with possible congestive heart failure acute exacerbation with acute on chronic diastolic dysfunction, ejection fraction 50% to 60% present on admission. 2. Troponin 0.753, possible acute non-ST segment elevation myocardial infarction, status post cardiac catheterization with stenting of the left anterior descending. 3. Diabetes mellitus type 2, uncontrolled with hyposmolar state with no evidence of ketoacidosis. 4. Chronic renal failure and chronic kidney disease stage V on hemodialysis. 5. Hyponatremia. 6. Obesity with a mass index. 7. Diabetes mellitus type 2 history. 8. Hyperlipidemia. 9. Hypertension. 10. Myocardial infarction history. 11. History of appendectomy. 12. History of cholecystectomy. 13. History of coronary artery disease. 14. History of depression. 15. FULL CODE. RECOMMENDATIONS AND DISCUSSION: I recommend to continue the current medications, continue monitoring and symptomatic treatment. Continue with antiplatelet agents and beta blockers. Monitor closely. Continue the hemodialysis. Guarded prognosis because of multiple complex medical issues. Further recommendations to follow.
--- NOTE | 2016-11-21 14:38 | P.PN ---
Subjective Patient is seen for follow-up for end-stage renal disease. She was admitted to the hospital with shortness of breath and the significant CHF which was new for her. She will had been evaluated by cardiology and had a Cardiac catheterization done yesterday. Patient did have stenting of the LAD done. She is currently doing very well she is scheduled for hemodialysis tomorrow and will likely be discharged tomorrow after dialysis. No complaints of chest pain shortness of breath nausea vomiting vomiting at this time. Objective - Vital Signs Vital signs: Vital Signs Temp 97.3 F L 11/21/16 12:00 Pulse 71 11/21/16 12:00 Resp 16 11/21/16 12:00 BP 156/67 11/21/16 12:00 Pulse Ox 97 11/21/16 12:00 Intake & Output 11/20/16 11/21/16 11/21/16 18:59 06:59 18:59 Intake Total 960.944 280 Output Total 200 0 Balance 960.944 -200 280 Weight 94 kg Intake: IV 369.27 Heparin Sodium,Porcine/ 175 D5w Pmx 25,000 unit In Dextrose/Water 1 500ml. bag @ 12 UNITS/KG/HR 20. 68 mls/hr IV .Q24H JONH Rx #:[id number] NORMAL SALINE 0.9% 80 Intake, IV Titration 291.674 Amount Heparin Sodium,Porcine/ 291.674 D5w Pmx 25,000 unit In Dextrose/Water 1 500ml. bag @ 12 UNITS/KG/HR 20. 68 mls/hr IV .Q24H JONH Rx #:[id number] Oral 300 280 Output: Urine 200 0 Other: Voiding Method Toilet Toilet Toilet # Voids 1 - Exam On examination patient is comfortable awake alert oriented 3. She is not in any acute distress. Blood pressure 156/67 heart rate 71/m she is afebrile [place] examination of the heart S1 and S2 next examination lungs bilateral breath sounds are heard Abdomen is soft nontender Exertion lower extremity shows no evidence of edema - Labs CBC & Chem 7: 11/21/16 06:46 11/21/16 06:46 Labs: Abnormal Lab Results - Last 24 Hours (Table) 11/20/16 11/20/16 11/20/16 Range/Units 14:55 16:50 17:39 APTT 37.0 H (22.0-30.0) sec Sodium (137-145) mmol/L Chloride (98-107) mmol/L Carbon Dioxide (22-30) mmol/L BUN (7-17) mg/dL Creatinine (0.52-1.04) mg/dL Glucose (74-99) mg/dL POC Glucose (mg/dL) 189 H 199 H (75-99) mg/dL 11/20/16 11/20/16 11/21/16 Range/Units 20:22 21:26 06:19 APTT 30.7 H (22.0-30.0) sec Sodium (137-145) mmol/L Chloride (98-107) mmol/L Carbon Dioxide (22-30) mmol/L BUN (7-17) mg/dL Creatinine (0.52-1.04) mg/dL Glucose (74-99) mg/dL POC Glucose (mg/dL) 265 H 212 H (75-99) mg/dL 11/21/16 11/21/16 Range/Units 06:46 11:29 APTT (22.0-30.0) sec Sodium 132 L (137-145) mmol/L Chloride 97 L (98-107) mmol/L Carbon Dioxide 21 L (22-30) mmol/L BUN 35 H (7-17) mg/dL Creatinine 5.40 H* (0.52-1.04) mg/dL Glucose 221 H (74-99) mg/dL POC Glucose (mg/dL) 240 H (75-99) mg/dL Assessment and Plan Plan: Assessment 1. end-stage renal disease on hemodialysis on a Monday schedule via left arm AV fistula. 2..CHF with underlying cardiac ischemia status post stenting of LAD on cardiac catheterization done yesterday. 3. Anemia of chronic disease 4. CK D bone mineral disorder Plan Hemodialysis in a.m. Patient can be discharged postdialysis tomorrow.
[2016-11-21] MEDS: hydrALAZINE HCL 25 MG TAB PO SCH ×3 (15:19→20:08)
[2016-11-21] MEDS: ISOSORBIDE MONONITRATE ER 30 MG TAB.ER.24H PO SCH (15:20)
[2016-11-21 16:38] LABS: Glucose,Whole Blood 213 mg/dL (75-99)
--- NOTE | 2016-11-21 19:47 | PN ---
Mrs. Bloom is a 71-year-old female with a known history of coronary artery disease, history of end-stage renal disease, who presented with symptoms of dyspnea and chest discomfort, ruled in for non- ST segment elevation myocardial infarction. Underwent cardiac catheterization and stenting of her mid LAD. She is feeling well this morning. She denies any chest pain. Her breathing has been stable. She denies any dizziness, palpitation. She denies any nausea. She continues on aspirin once a day, Lipitor 80 mg daily, Coreg 12.5 mg twice a day, Plavix 75 mg daily, Lasix 40 mg twice a day, isosorbide mononitrate 30 mg daily, Hydralazine 25 mg 3 times a day. PHYSICAL EXAMINATION: Blood pressure 146/60 with a heart rate in the 70s. LUNGS: Clear. HEART: Regular rate and rhythm. S1, S2, no S3, no rub with a systolic murmur. ABDOMEN: Soft, nontender. RIGHT GROIN: No hematoma. EXTREMITIES: No edema. EKG revealed no acute changes. Lab data revealed BUN and creatinine 35 and 5.4. Potassium 4.1. Hemoglobin of 11.5. IMPRESSION: 1. Non- ST segment elevation myocardial infarction status post stenting of the left anterior descending. 2. End-stage renal disease on hemodialysis. 3. Hypertension. 4. Hyperlipidemia. RECOMMENDATIONS: Will continue present therapy, increase her level of activity. If she remains stable, I expect she may be able to be discharged home tomorrow.
[2016-11-21] MEDS: ATORVASTATIN 80 MG TAB PO SCH (20:09)
[2016-11-21 20:35] LABS: Glucose,Whole Blood 225 mg/dL (75-99)
[2016-11-22] MEDS: SODIUM CHLORIDE 0.9% 1,000 ML IV SCH (02:59)
[2016-11-22 06:05] LABS: Glucose,Whole Blood 213 mg/dL (75-99)
[2016-11-22] MEDS: CALCIUM ACETATE 667 MG CAP PO SCH ×3 (06:27→17:41)
[2016-11-22] MEDS: FUROSEMIDE 40 MG TAB PO SCH ×2 (06:27→20:05)
[2016-11-22] MEDS: INSULIN LISPRO (humaLOG) 300 UNIT/3 ML VIAL SQ SCH ×4 (06:28→21:15)
[2016-11-22] MEDS: CARVEDILOL 12.5 MG TAB PO SCH ×2 (06:28→20:04)
[2016-11-22 06:41] LABS: Calcium 8.8 mg/dL (8.4-10.2); Potassium 4.2 mmol/L (3.5-5.1)
[2016-11-22 06:47] LABS: Basophils % (A) 0 %; CH 30.2; CHCM 33.1; Eosinophils # (A) 0.4 k/uL (0-0.7); Eosinophils % (A) 5 %; HCT 30.3 % (34.0-46.0); HDW 2.69; Luc # (Auto) 0.25; Luc % (Auto) 3; Lymphocytes # (A) 1.3 k/uL (1.0-4.8); Lymphocytes % (A) 17 %; MCH 30.3 pg (25.0-35.0); MCV 91.7 fL (80.0-100.0); Mean Platelet Volume 7.7; Monocytes # (A) 0.5 k/uL (0-1.0); Monocytes % (A) 7 %; Neutrophils # (A) 5.1 k/uL (1.3-7.7); Neutrophils % (A) 68 %; RBC 3.31 m/uL (3.80-5.40); RDW 14.9 % (11.5-15.5); WBC 7.6 k/uL (3.8-10.6)
--- NOTE | 2016-11-22 07:02 | PN ---
DATE OF SERVICE: 11/21/2016 I am covering for Dr. Malone. HISTORY OF PRESENT ILLNESS: This 71-year-old woman who was admitted with multiple medical issues, also had coronary artery disease. The patient had cardiac catheterization and stenting of the restenosis of the mid LAD with reduction of stenosis 99% to less than 5%. No chest pain or palpitations. No fever. On exam, alert and oriented x3. Pulse 71, blood pressure 156/67, respirations 16, temperature 97.3, pulse ox 97% on room air. HEENT: Conjunctivae normal. Oral mucosa is moist. NECK: No jugular venous distention. No carotid bruit. No lymph node enlargement. CARDIOVASCULAR: S1 and S2 muffled. No S3, no S4. RESPIRATORY: Breath sounds diminished at the bases. No rhonchi, no crackles. ABDOMEN: Soft, non tender. LEGS: No edema, no swelling. NERVOUS SYSTEM: Higher function as mentioned. Moves all 4 limbs. No focal deficits. LYMPHATICS: No lymphadenopathy of neck, axillae or groin. SKIN: No ulcers, rashes, bleeding. LABS: CBC within normal limits. Creatinine is 5.40. ASSESSMENT: 1. Shortness of breath, possible congestive heart failure acute exacerbation with acute on chronic diastolic dysfunction, ejection 55% to 60% present on admission. 2. Troponin 0.753, possible acute non-ST segment elevation myocardial infarction, status post cardiac catheterization and stenting of the mid LAD restenosis. 3. Diabetes mellitus type 2, uncontrolled with hypoosmolar state with no evidence of ketoacidosis. 4. Chronic renal failure, chronic kidney disease stage V on hemodialysis. 5. Hyponatremia. 6. Obesity with body mass index of 7. Diabetes mellitus type 2 history. 8. Hyperlipidemia. 9. Hypertension. 10. History of myocardial infarction. 11. History of appendectomy. 12. History of cholecystectomy. 13. History of coronary artery disease. 14. History of depression. 15. FULL CODE. RECOMMENDATIONS AND DISCUSSION: Recommend to continue the current medications. Continue with symptomatic treatment. Continue with antiplatelets agents. Continue with beta blockers. Monitor closely. Continue the hemodialysis and Dr. Malone will follow. Increase ambulation. MTDD
[2016-11-22] MEDS: ASPIRIN 325 MG TAB PO SCH (08:16)
[2016-11-22] MEDS: CITALOPRAM HYDROBROMIDE 20 MG TAB PO SCH (08:16)
[2016-11-22] MEDS: CHOLECALCIFEROL 1,000 UNIT TAB PO SCH (08:16)
[2016-11-22] MEDS: FERROUS SULFATE 325 MG TAB PO SCH ×2 (08:17→21:16)
[2016-11-22] MEDS: CYANOCOBALAMIN 500 MCG TAB PO SCH (08:17)
[2016-11-22] MEDS: FOLIC ACID-VIT B COMPLEX-VIT C 1 CAP PO SCH (08:17)
[2016-11-22] MEDS: hydrALAZINE HCL 25 MG TAB PO SCH ×3 (08:17→21:16)
[2016-11-22] MEDS: CLOPIDOGREL 75 MG TAB PO SCH (08:17)
[2016-11-22] MEDS: ISOSORBIDE MONONITRATE ER 30 MG TAB.ER.24H PO SCH (08:18)
[2016-11-22] MEDS: INSULIN GLARGINE 100 UNIT/ML 10 ML VIAL SQ SCH (08:29)
[2016-11-22 10:12] VITALS: BMI 35.0
[2016-11-22 12:08] LABS: Glucose,Whole Blood 200 mg/dL (75-99)
--- NOTE | 2016-11-22 14:37 | P.PN ---
Subjective Principal diagnosis: Non-Q-wave HI This is a 71-year-old female with history of end-stage renal disease on hemodialysis, hypertension, hyperlipidemia, she presented to the hospital with a non-Q-wave myocardial infarction and underwent angioplasty with stent placement of the left anterior descending artery. Patient was seen and examined this morning, denies any chest pain or difficulty in breathing. She has been up ambulating without any difficulty. Objective - Vital Signs Vital signs: Vital Signs Temp 96.9 F L 11/22/16 11:21 Pulse 66 11/22/16 11:21 Resp 18 11/22/16 11:21 BP 149/69 11/22/16 11:21 Pulse Ox 96 11/22/16 11:21 Intake & Output 11/21/16 11/22/16 11/22/16 18:59 06:59 18:59 Intake Total 502 540 220 Output Total 100 150 Balance 402 390 220 Weight 87 kg 87 kg Intake: Oral 502 540 220 Output: Urine 100 150 Other: Voiding Method Toilet Toilet Toilet # Voids 2 0 # Bowel Movements 0 - Exam PHYSICAL EXAMINATION: HEENT: Head is atraumatic, normocephalic. Pupils equal, round. Neck is supple. There is no elevated jugular venous pressure. HEART EXAMINATION: Heart S1, S2 normal. No murmur or gallop heard. CHEST EXAMINATION: Lungs are clear to auscultation and precussion. No chest wall tenderness is noted on palpation or with deep breathing. ABDOMEN: Soft, nontender. Bowel sounds are heard. No organomegaly noted. EXTREMITIES: 2+ peripheral pulses with no evidence of peripheral edema and no calf tenderness noted. Right radial site clean and dry, good distal pulse. NEUROLOGIC patient is awake, alert and oriented -3. . - Labs CBC & Chem 7: 11/22/16 05:44 11/22/16 05:41 Labs: Abnormal Lab Results - Last 24 Hours (Table) 11/21/16 11/21/16 11/22/16 Range/Units 16:36 20:34 05:41 RBC (3.80-5.40) m/uL Hgb (11.4-16.0) gm/dL Hct (34.0-46.0) % Sodium 130 L (137-145) mmol/L Chloride 93 L (98-107) mmol/L BUN 46 H (7-17) mg/dL Creatinine 7.10 H* (0.52-1.04) mg/dL Glucose 194 H (74-99) mg/dL POC Glucose (mg/dL) 213 H 225 H (75-99) mg/dL 11/22/16 11/22/16 11/22/16 Range/Units 05:44 06:04 11:56 RBC 3.31 L (3.80-5.40) m/uL Hgb 10.0 L D (11.4-16.0) gm/dL Hct 30.3 L (34.0-46.0) % Sodium (137-145) mmol/L Chloride (98-107) mmol/L BUN (7-17) mg/dL Creatinine (0.52-1.04) mg/dL Glucose (74-99) mg/dL POC Glucose (mg/dL) 213 H 200 H (75-99) mg/dL Assessment and Plan (1) ESRD (end stage renal disease) Status: Acute (2) NSTEMI (non-ST elevated myocardial infarction) Status: Acute (3) Diabetes Status: Acute (4) HTN (hypertension) Status: Acute (5) Hyperlipemia Status: Acute (6) Presence of stent in LAD coronary artery Status: Acute Plan: From cardiology's perspective, patient may be able to be discharged home once cleared by the primary doctor. A follow-up appointment will be made with Dr. Dawit Hernandez in the office post discharge. She will be continued on aspirin once daily, Lipitor 80 daily, Coreg 12-1/2 mg twice a day, Plavix 75 mg daily, Lasix 40 mg twice a day, Imdur 30 mg daily, hydralazine 25 mg one tablet by mouth 3 times a day. Sublingual nitroglycerin will be provided as needed for chest pain when necessary. She has been educated regarding her medication and prescriptions have been provided. DNP note has been reviewed, I agree with a documented findings and plan of care. Patient was seen and examined.
--- NOTE | 2016-11-22 15:08 | P.DS ---
Providers Date of admission: 11/18/16 22:14 Expected date of discharge: 11/22/16 Attending physician: Jasbir Malone Consults: 11/20/16 14:03 Consult Physician Routine Consulting Provider: [facility] Consult Reason/Comments: Post Interventional patient Do you want consulting provider notified?: Already Contacted Primary care physician: Jasbir Malone [facility] Course: Patient is a 71-year-old female with complex medical history significant for end-stage renal disease on hemodialysis and coronary artery disease with stent placement. Patient admitted with increased shortness of breath or cough. Patient had evidence of non-Q-wave myocardial infarction and underwent angioplasty with stent placement of the left anterior descending artery. Patient improved during her hospital stay and was felt stable for discharge to home. Discharge diagnoses: 1. Shortness of breath suspect secondary to acute on chronic diastolic dysfunction, ejection fraction 55% to 60% on admission. 2. Acute non-ST segment elevation myocardial infarction status post cardiac catheterization and stenting of the mid LAD restenosis. 3. Diabetes mellitus type 2, uncontrolled. 4. Chronic renal failure, chronic kidney disease stage V on hemodialysis. 5. Hyponatremia. 6. Obesity. BMI 35.1. 7. Hyperlipidemia. 8. Hypertension. 9. History of myocardial infarction. 10. History of appendectomy. 11. History of cholecystectomy. 12. History of coronary artery disease. 13. History of depression. The above impression and plan have been discussed and directed by Dr. Malone. Maureen BRANCH acting as scribe for Dr. Malone. Pertinent Studies: EKG; chest x-ray; echocardiogram with Doppler Procedures: Cardiac catheterization Patient Condition at Discharge: Good Plan - Discharge Summary New Discharge Prescriptions: Aspirin 325 mg PO DAILY #30 tab Atorvastatin [Lipitor] 80 mg PO HS #30 tab Clopidogrel [Plavix] 75 mg PO DAILY #30 tab Furosemide [Lasix] 40 mg PO Q12H #60 tab Nitroglycerin Sl Tabs [Nitrostat] 0.4 mg SUBLINGUAL Q5M PRN #25 tab PRN Reason: Chest Pain hydrALAZINE HCL [Apresoline] 25 mg PO TID #90 tab Discharge Medication List Cholecalciferol [Vitamin D3] 1,000 unit PO DAILY 03/13/16 [History] Ferrous Sulfate [Iron (65 MG Elemental)] 325 mg PO BID 03/13/16 [History] Insulin Glargine [Lantus] 30 unit SQ QAM 03/13/16 [History] Calcium Acetate [Phoslo] 1,334 mg PO AC-TID 03/14/16 [History] Insulin Aspart [NovoLOG] 0 - 15 unit SQ AC-TID 03/14/16 [History] Cyanocobalamin [Vitamin B-12] 1,000 mcg PO DAILY 06/06/16 [History] Folic Acid-Vit B Complex-Vit C [Nephrocaps] 1 cap PO DAILY 06/06/16 [History] Citalopram Hydrobromide [CeleXA] 20 mg PO DAILY 08/05/16 [History] Carvedilol [Coreg*] 12.5 mg PO BID-W/MEALS #60 tab 08/09/16 [Rx] Isosorbide Mononitrate ER [Imdur] 30 mg PO DAILY 11/19/16 [History] Magnebind 300 1 tab PO AC-BID 11/19/16 [History] Aspirin 325 mg PO DAILY #30 tab 11/22/16 [Rx] Atorvastatin [Lipitor] 80 mg PO HS #30 tab 11/22/16 [Rx] Clopidogrel [Plavix] 75 mg PO DAILY #30 tab 11/22/16 [Rx] Furosemide [Lasix] 40 mg PO Q12H #60 tab 11/22/16 [Rx] Nitroglycerin Sl Tabs [Nitrostat] 0.4 mg SUBLINGUAL Q5M PRN #25 tab 11/22/16 [Rx ] hydrALAZINE HCL [Apresoline] 25 mg PO TID #90 tab 11/22/16 [Rx] Follow up Appointment(s)/Referral(s): Jackie Hernandez MD [STAFF PHYSICIAN] - 1 Week Jasbir Malone DO [Primary Care Provider] - 1-2 days Patient Instructions/Handouts: After Heart Catheterization - Concrete Saw Operator, Myocardial Infarction (GEN) Activity/Diet/Wound Care/Special Instructions: Follow post cath instruction sheet for right groin site care Discharge Disposition: HOME SELF-CARE
[2016-11-22 17:24] LABS: Glucose,Whole Blood 189 mg/dL (75-99)
--- NOTE | 2016-11-22 18:45 | PN ---
Patient is seen for followup for end-stage renal disease. She is scheduled for hemodialysis today, after which she is anticipating discharge. Patient is status post LAD stenting on 11/20/2016. She currently denies any significant chest ( ) or shortness of breath. On examination, blood pressure is 149/69, heart rate 66 per minute. She is afebrile. HEART: S1 and S2. LUNGS: Bilateral breath sounds are heard. Decreased breath sounds in bases. Abdomen is soft, nontender. Lower extremities show no significant edema. SHAPER MACHINE HAND is grossly intact. Labs show sodium 130, potassium 4.2. Hemoglobin 10. ASSESSMENT: 1. End-stage renal disease on hemodialysis on a Monday, , Monday schedule via left arm arteriovenous fistula. Patient will be dialyzed today. 2. Congestive heart failure secondary to cardiac ischemia, status post cardiac catheterization and stenting of the left anterior descending coronary artery. 3. Anemia of chronic disease. 4. Mild hyponatremia, expect improvement post dialysis. PLAN: Patient is stable for discharge post hemodialysis today.
[2016-11-22] MEDS: ATORVASTATIN 80 MG TAB PO SCH (21:16)
[2016-11-22 21:18] VITALS: BP 172/77; PULSE 73; RESP 16; TEMP 97.1
== END 2016-11-22 21:44 | disposition home or self-care (01) | DRG 246 ==
LOC: EC 20:39 → 6SEL 22:14
PROVIDERS: ADMIT Family Medicine; ATTEND Family Medicine
PROC: 5A1D60Z (ICD-10-PCS; 2016-11-19)
PROC: 027034Z Dilation of Coronary Artery, One Artery with Drug-eluting Intraluminal Device, Percutaneous Approach (ICD-10-PCS; principal; 2016-11-20 13:00)
PROC: B2111ZZ Fluoroscopy of Multiple Coronary Arteries using Low Osmolar Contrast (ICD-10-PCS; 2016-11-20 13:00)
DX: I21.4 Non-ST elevation (NSTEMI) myocardial infarction (principal); I50.33 Acute on chronic diastolic (congestive) heart failure; E11.00 Type 2 diabetes mellitus with hyperosmolarity without nonketotic hyperglycemic-hyperosmolar coma (NKHHC); N18.6 End stage renal disease; T82.855A Stenosis of coronary artery stent, initial encounter; I08.3 Combined rheumatic disorders of mitral, aortic and tricuspid valves; I13.2 Hypertensive heart and chronic kidney disease with heart failure and with stage 5 chronic kidney disease, or end stage renal disease; E87.1 Hypo-osmolality and hyponatremia; E11.40 Type 2 diabetes mellitus with diabetic neuropathy, unspecified; E11.22 Type 2 diabetes mellitus with diabetic chronic kidney disease; I25.10 Atherosclerotic heart disease of native coronary artery without angina pectoris; E66.9 Obesity, unspecified; I25.84 Coronary atherosclerosis due to calcified coronary lesion; I25.2 Old myocardial infarction; E78.5 Hyperlipidemia, unspecified; E87.6 Hypokalemia; E86.0 Dehydration; H26.9 Unspecified cataract; D63.8 Anemia in other chronic diseases classified elsewhere; Z71.3 Dietary counseling and surveillance; Z68.35 Body mass index [BMI] 35.0-35.9, adult; Z99.2 Dependence on renal dialysis; Z79.4 Long term (current) use of insulin; Z90.49 Acquired absence of other specified parts of digestive tract; Z95.5 Presence of coronary angioplasty implant and graft; Z87.891 Personal history of nicotine dependence; Z79.02 Long term (current) use of antithrombotics/antiplatelets; Z79.82 Long term (current) use of aspirin; Z79.899 Other long term (current) drug therapy; Y84.0 Cardiac catheterization as the cause of abnormal reaction of the patient, or of later complication, without mention of misadventure at the time of the procedure; Z82.49 Family history of ischemic heart disease and other diseases of the circulatory system; Z83.3 Family history of diabetes mellitus
CPT/HCPCS: 36415; 71010; 80048; 80051; 80053; 80061; 82009; 82550; 82553; 82565; 82947; 83036; 83735; 83880; 84100; 84484; 84520; 85025; 85347; 85610; 85730; 90935; 93005; 93306; 93458; 94640; 94760; 96365; 96368; 96375; 96376; 99291

== ENCOUNTER 2016-12-24 17:20 | Inpatient (IN) | payer MEDICARE, OTHER ==
--- NOTE | 2016-12-24 17:40 | ED ---
General Adult HPI - General Source: patient, RN notes reviewed Mode of arrival: wheelchair Limitations: no limitations <Tunde Sullivan - Last Filed: 12/24/16 18:55> <Cleveland Painting - Last Filed: 12/24/16 20:13> - General Chief complaint: Shortness of Breath Stated complaint: aracelis Time Seen by Provider: 12/24/16 17:30 - History of Present Illness Initial comments: This is a 71-year-old female presents to the emergency department with a past medical history significant for renal failure and is on dialysis. Patient also has had cardiac history as well. Patient comes into the emergency department today complaining of difficulty breathing which started at 1:00 in the morning. Patient was supposed to be dialyzed today but did not get dialyzed because she felt as though she was too short of breath to go to the dialysis center. Patient denies any fever or chills. Patient states she has a chronic cough which is no worse than normal. Patient denies any chest pain or palpitations. Patient denies any abdominal pain. Patient denies nausea vomiting diarrhea. Patient denies any headache patient denies numbness weakness. Patient denies any lightheadedness dizziness or near-syncopal episode. (Tunde Sullivan) - Related Data Home Medications Medication Instructions Recorded Confirmed Cholecalciferol [Vitamin D3] 1,000 unit PO DAILY 03/13/16 12/24/16 Ferrous Sulfate [Iron (65 MG 325 mg PO BID 03/13/16 12/24/16 Elemental)] Insulin Glargine [Lantus] 30 unit SQ QAM 03/13/16 12/24/16 Calcium Acetate [Phoslo] 1,334 mg PO AC-TID 03/14/16 12/24/16 Insulin Aspart [NovoLOG] 0 - 15 unit SQ AC-TID 03/14/16 12/24/16 Cyanocobalamin [Vitamin B-12] 1,000 mcg PO DAILY 06/06/16 12/24/16 Folic Acid-Vit B Complex-Vit C 1 cap PO DAILY 06/06/16 12/24/16 [Nephrocaps] Citalopram Hydrobromide [CeleXA] 20 mg PO DAILY 08/05/16 12/24/16 Isosorbide Mononitrate ER [Imdur] 30 mg PO DAILY 11/19/16 12/24/16 Magnebind 300 1 tab PO AC-BID 11/19/16 12/24/16 Previous Rx's Medication Instructions Recorded Carvedilol [Coreg*] 12.5 mg PO BID-W/MEALS #60 tab 08/09/16 Aspirin 325 mg PO DAILY #30 tab 11/22/16 Atorvastatin [Lipitor] 80 mg PO HS #30 tab 11/22/16 Clopidogrel [Plavix] 75 mg PO DAILY #30 tab 11/22/16 Furosemide [Lasix] 40 mg PO Q12H #60 tab 11/22/16 Nitroglycerin Sl Tabs [Nitrostat] 0.4 mg SUBLINGUAL Q5M PRN #25 tab 11/22/16 hydrALAZINE HCL [Apresoline] 25 mg PO TID #90 tab 11/22/16 Allergies Allergy/AdvReac Type Severity Reaction Status Date / Time glyburide [From Diabeta] Allergy Rash/Hives Verified 12/24/16 17:46 Review of Systems ROS Other: All systems not noted in ROS Statement are negative. <Tunde Sullivan - Last Filed: 12/24/16 18:55> ROS Other: All systems not noted in ROS Statement are negative. <Cleveland Painting - Last Filed: 12/24/16 20:13> ROS Statement: Those systems with pertinent positive or pertinent negative responses have been documented in the HPI. Past Medical History Past Medical History: Diabetes Mellitus, Dialysis, Hyperlipidemia, Hypertension , Myocardial Infarction (AL), Renal Disease Additional Past Medical History / Comment(s): chronic renal failure stage V with dialysis 3 times a week-lt arm fistula, IDDM, pt states "per dialysis nurse who performed EKG and told pt she had an abnormal EKG and had had a AL in the past" but physician has never confirmed. NSTEMI 03/14/16, peripheral neuropathy bilateral feet cataracts bilaterally, UTI'S. Last Myocardial Infarction Date:: 06/07/2016 History of Any Multi-Drug Resistant Organisms: None Reported Past Surgical History: Appendectomy, Cholecystectomy, Heart Catheterization, Heart Catheterization With Stent Additional Past Surgical History / Comment(s): 03/15/16 PTCA with stent to mid LAD,06-07-16 HEART CATH STENT TO PROX RCA. A/V fistula with revision L upper arm Past Anesthesia/Blood Transfusion Reactions: No Reported Reaction Date of Last Stent Placement:: 06/07/16 Past Psychological History: Depression Additional Psychological History / Comment(s): Pt resides with her son. She does not use any assistive device and she can drive. Smoking Status: Former smoker Past Alcohol Use History: None Reported Additional Past Alcohol Use History / Comment(s): Pt states she started smoking at age 21 (1965) and was a 5 cigarette a day smoker- she only smoked for about 6 months. Past Drug Use History: None Reported - Past Family History Father Family Medical History: Diabetes Mellitus Additional Family Medical History / Comment(s): Nayan of diabetic complications in his 40's Mother Family Medical History: Cancer, Myocardial Infarction (AL) Additional Family Medical History / Comment(s): Cancer unknown type. Mother of a AL in her early 50's <Tunde Sullivan - Last Filed: 12/24/16 18:55> General Exam Limitations: no limitations <Tunde Sullivan - Last Filed: 12/24/16 18:55> <C[employer] Painting - Last Filed: 12/24/16 20:13> - General Exam Comments Initial Comments: GENERAL: Patient is well-developed and well-nourished. Patient is nontoxic and well- hydrated and is in mild distress. ENT: Neck is soft and supple. No significant lymphadenopathy is noted. Oropharynx is clear. Moist mucous membranes. Neck has full range of motion without eliciting any pain. EYES: The sclera were anicteric and conjunctiva were pink and moist. Extraocular movements were intact and pupils were equal round and reactive to light. Eyelids were unremarkable. PULMONARY: Patient has good breath sounds with some diminished breath sounds in the right base CARDIOVASCULAR: There is a regular rate and rhythm without any murmurs gallops or rubs. ABDOMEN: Soft and nontender with normal bowel sounds. No palpable organomegaly was noted. There is no palpable pulsatile mass. SKIN: Skin is clear with no lesions or rashes and otherwise unremarkable. NEUROLOGIC: Patient is alert and oriented x3. Cranial nerves II through XII are grossly intact. Motor and sensory are also intact. Normal speech, volume and content. Symmetrical smile. MUSCULOSKELETAL: Normal extremities with adequate strength and full range of motion. No lower extremity swelling or edema. No calf tenderness. LYMPHATICS: No significant lymphadenopathy is noted PSYCHIATRIC: Normal psychiatric evaluation. N (Tunde Sullivan) Course <Tunde Sullivan - Last Filed: 12/24/16 18:55> <Cleveland Painting - Last Filed: 12/24/16 20:13> Vital Signs 12/24/16 12/24/16 17:31 19:39 Temperature 97.8 F Pulse Rate 86 84 Respiratory 16 20 Rate Blood Pressure 178/73 179/74 O2 Sat by Pulse 88 L 94 L Oximetry - Reevaluation(s) Reevaluation #1: 12/24/16 19:26 I did evaluate the patient on my arrival in the emergency department she states she is feeling somewhat better after oxygen was applied. The initial as had been tending x-ray does show evidence of CHF/pulmonary edema there is pleural fluid also noted. (Cleveland Painting) Reevaluation #2: 12/24/16 20:11 The patient remains stable at this time I did discuss the case with the hospitalist Dr. Barbosa as well as the obstetrician gynecologist Dr. Brooks. (Cleveland Painting) Reevaluation #3: 12/24/16 20:12 Patient will be admitted with dialysis pending. She denies any chest pain is/ she has has a reproducible chest pain. Repeat cardiac enzymes were ordered and evaluation is indicated. (Cleveland Painting) Medical Decision Making - Lab Data Result diagrams: 12/24/16 18:15 12/24/16 18:15 <Tunde Sullivan - Last Filed: 12/24/16 18:55> - Lab Data Result diagrams: 12/24/16 18:15 12/24/16 18:15 <Cleveland Painting - Last Filed: 12/24/16 20:13> - Medical Decision Making EKG shows normal sinus rhythm at 87 bpm VA interval 190 QRS is under 4 QT was 432 QTC is 519. Patient's EKG shows some slight ST segment depression in leads V4 through V6 as well as inferior leads. Chest x-ray shows pulmonary edema. Dr. Painting taking over the care of this patient at 7 PM (Tunde Sullivan) - Lab Data Lab Results 12/24/16 12/24/16 12/24/16 Range/Units 18:15 18:15 18:15 WBC 11.4 H (3.8-10.6) k/uL RBC 3.56 L (3.80-5.40) m/uL Hgb 10.5 L (11.4-16.0) gm/dL Hct 33.5 L (34.0-46.0) % MCV 94.2 (80.0-100.0) fL MCH 29.5 (25.0-35.0) pg MCHC 31.4 (31.0-37.0) g/dL RDW 15.1 (11.5-15.5) % Plt Count 356 (150-450) k/uL Neutrophils % 81 % Lymphocytes % 10 % Monocytes % 5 % Eosinophils % 2 % Basophils % 0 % Neutrophils # 9.2 H (1.3-7.7) k/uL Lymphocytes # 1.2 (1.0-4.8) k/uL Monocytes # 0.6 (0-1.0) k/uL Eosinophils # 0.2 (0-0.7) k/uL Basophils # 0.0 (0-0.2) k/uL PT (9.0-12.0) sec INR (<1.1) APTT (22.0-30.0) sec Sodium 138 (137-145) mmol/L Potassium 3.6 (3.5-5.1) mmol/L Chloride 100 (98-107) mmol/L Carbon Dioxide 23 (22-30) mmol/L Anion Gap 15 mmol/L BUN 40 H (7-17) mg/dL Creatinine 6.00 H* (0.52-1.04) mg/dL Est GFR (MDRD) Af Amer 8 (>60 ml/min/1.73 sqM) Est GFR (MDRD) Non-Af 7 (>60 ml/min/1.73 sqM) Glucose 364 H (74-99) mg/dL Calcium 9.4 (8.4-10.2) mg/dL Magnesium 2.0 (1.6-2.3) mg/dL Total Bilirubin 0.6 (0.2-1.3) mg/dL AST 25 (14-36) U/L ALT 37 (9-52) U/L Alkaline Phosphatase 103 (38-126) U/L Total Creatine Kinase 59 (30-135) U/L CK-MB (CK-2) 1.4 (0.0-2.4) ng/mL CK-MB (CK-2) Rel Index 2.4 Troponin I 0.981 H* (0.000-0.034) ng/mL NT-Pro-B Natriuret Pep pg/mL Total Protein 6.6 (6.3-8.2) g/dL Albumin 3.3 L (3.5-5.0) g/dL 12/24/16 12/24/16 Range/Units 18:15 18:15 WBC (3.8-10.6) k/uL RBC (3.80-5.40) m/uL Hgb (11.4-16.0) gm/dL Hct (34.0-46.0) % MCV (80.0-100.0) fL MCH (25.0-35.0) pg MCHC (31.0-37.0) g/dL RDW (11.5-15.5) % Plt Count (150-450) k/uL Neutrophils % % Lymphocytes % % Monocytes % % Eosinophils % % Basophils % % Neutrophils # (1.3-7.7) k/uL Lymphocytes # (1.0-4.8) k/uL Monocytes # (0-1.0) k/uL Eosinophils # (0-0.7) k/uL Basophils # (0-0.2) k/uL PT 10.3 (9.0-12.0) sec INR 1.0 (<1.1) APTT 16.7 L (22.0-30.0) sec Sodium (137-145) mmol/L Potassium (3.5-5.1) mmol/L Chloride (98-107) mmol/L Carbon Dioxide (22-30) mmol/L Anion Gap mmol/L BUN (7-17) mg/dL Creatinine (0.52-1.04) mg/dL Est GFR (MDRD) Af Amer (>60 ml/min/1.73 sqM) Est GFR (MDRD) Non-Af (>60 ml/min/1.73 sqM) Glucose (74-99) mg/dL Calcium (8.4-10.2) mg/dL Magnesium (1.6-2.3) mg/dL Total Bilirubin (0.2-1.3) mg/dL AST (14-36) U/L ALT (9-52) U/L Alkaline Phosphatase (38-126) U/L Total Creatine Kinase (30-135) U/L CK-MB (CK-2) (0.0-2.4) ng/mL CK-MB (CK-2) Rel Index Troponin I (0.000-0.034) ng/mL NT-Pro-B Natriuret Pep 06150 pg/mL Total Protein (6.3-8.2) g/dL Albumin (3.5-5.0) g/dL Critical Care Time <Tunde Sullivan - Last Filed: 12/24/16 18:55> Critical Care Time: Yes <C[place] Painting - Last Filed: 12/24/16 20:13> Critical Care Time: 31 minutes of critical care time which includes initial signoff from Dr. Sullivan. Evaluation the patient multiple occasions. Discussion with patient family members discussion with various doctors. Admission orders and documentation of the above. (Cleveland Painting) Disposition <Tunde Sullivan - Last Filed: 12/24/16 18:55> <Cleveland Painting - Last Filed: 12/24/16 20:13> Clinical Impression: Pulmonary edema, Bronchospasm, acute, Hyperglycemia, Chronic renal failure syndrome Disposition: ADMITTED IP TO THIS HOSP Condition: Stable
[2016-12-24] MEDS ORDERED: NITROGLYCERIN OINT 1 INCH/GM PACKET TOPICAL STA (17:41)
[2016-12-24 18:34] LABS: Basophils % (A) 0 %; CH 30.1; CHCM 32.1; Eosinophils # (A) 0.2 k/uL (0-0.7); Eosinophils % (A) 2 %; HCT 33.5 % (34.0-46.0); HDW 2.77; HGB 10.5 gm/dL (11.4-16.0); Luc # (Auto) 0.21; Luc % (Auto) 2; Lymphocytes # (A) 1.2 k/uL (1.0-4.8); Lymphocytes % (A) 10 %; MCH 29.5 pg (25.0-35.0); MCHC 31.4 g/dL (31.0-37.0); MCV 94.2 fL (80.0-100.0); Mean Platelet Volume 7.4; Monocytes # (A) 0.6 k/uL (0-1.0); Monocytes % (A) 5 %; Neutrophils # (A) 9.2 k/uL (1.3-7.7); Neutrophils % (A) 81 %; RBC 3.56 m/uL (3.80-5.40); RDW 15.1 % (11.5-15.5); WBC 11.4 k/uL (3.8-10.6); WBC (Perox) 11.83
[2016-12-24 18:37] LABS: Calcium 9.4 mg/dL (8.4-10.2); Potassium 3.6 mmol/L (3.5-5.1); Total Bilirubin 0.6 mg/dL (0.2-1.3); Total Protein 6.6 g/dL (6.3-8.2)
[2016-12-24 18:43] LABS: Prothrombin Time 10.3 sec (9.0-12.0)
--- NOTE | 2016-12-24 18:43 | XR ---
EXAMINATION TYPE: XR chest 2V DATE OF EXAM: 12/24/2016 6:39 PM COMPARISON: 11/18/2016 HISTORY: Difficulty breathing TECHNIQUE: Frontal and lateral views of the chest are obtained. FINDINGS: There is pulmonary edema. There is blunting of costophrenic angles and more on the left si de. There are no hilar masses. Heart is probably enlarged. There are chest leads. Bony thorax is inta ct. IMPRESSION: There is pulmonary edema that appears worse than last exam. There is increasing pleural fluid compared to last exam and consistent with congestive heart failure.
[2016-12-24 19:01] LABS: Creatine Kinase MB 1.4 ng/mL (0.0-2.4)
[2016-12-24 19:04] LABS: Troponin I 0.981 ng/mL (0.000-0.034)
--- NOTE | 2016-12-24 20:20 | ED ---
Medical Decision Making - Lab Data Result diagrams: 12/24/16 18:15 12/24/16 18:15 Lab Results 12/24/16 12/24/16 12/24/16 Range/Units 18:15 18:15 18:15 WBC 11.4 H (3.8-10.6) k/uL RBC 3.56 L (3.80-5.40) m/uL Hgb 10.5 L (11.4-16.0) gm/dL Hct 33.5 L (34.0-46.0) % MCV 94.2 (80.0-100.0) fL MCH 29.5 (25.0-35.0) pg MCHC 31.4 (31.0-37.0) g/dL RDW 15.1 (11.5-15.5) % Plt Count 356 (150-450) k/uL Neutrophils % 81 % Lymphocytes % 10 % Monocytes % 5 % Eosinophils % 2 % Basophils % 0 % Neutrophils # 9.2 H (1.3-7.7) k/uL Lymphocytes # 1.2 (1.0-4.8) k/uL Monocytes # 0.6 (0-1.0) k/uL Eosinophils # 0.2 (0-0.7) k/uL Basophils # 0.0 (0-0.2) k/uL PT (9.0-12.0) sec INR (<1.1) APTT (22.0-30.0) sec Sodium 138 (137-145) mmol/L Potassium 3.6 (3.5-5.1) mmol/L Chloride 100 (98-107) mmol/L Carbon Dioxide 23 (22-30) mmol/L Anion Gap 15 mmol/L BUN 40 H (7-17) mg/dL Creatinine 6.00 H* (0.52-1.04) mg/dL Est GFR (MDRD) Af Amer 8 (>60 ml/min/1.73 sqM) Est GFR (MDRD) Non-Af 7 (>60 ml/min/1.73 sqM) Glucose 364 H (74-99) mg/dL Calcium 9.4 (8.4-10.2) mg/dL Magnesium 2.0 (1.6-2.3) mg/dL Total Bilirubin 0.6 (0.2-1.3) mg/dL AST 25 (14-36) U/L ALT 37 (9-52) U/L Alkaline Phosphatase 103 (38-126) U/L Total Creatine Kinase 59 (30-135) U/L CK-MB (CK-2) 1.4 (0.0-2.4) ng/mL CK-MB (CK-2) Rel Index 2.4 Troponin I 0.981 H* (0.000-0.034) ng/mL NT-Pro-B Natriuret Pep pg/mL Total Protein 6.6 (6.3-8.2) g/dL Albumin 3.3 L (3.5-5.0) g/dL 12/24/16 12/24/16 Range/Units 18:15 18:15 WBC (3.8-10.6) k/uL RBC (3.80-5.40) m/uL Hgb (11.4-16.0) gm/dL Hct (34.0-46.0) % MCV (80.0-100.0) fL MCH (25.0-35.0) pg MCHC (31.0-37.0) g/dL RDW (11.5-15.5) % Plt Count (150-450) k/uL Neutrophils % % Lymphocytes % % Monocytes % % Eosinophils % % Basophils % % Neutrophils # (1.3-7.7) k/uL Lymphocytes # (1.0-4.8) k/uL Monocytes # (0-1.0) k/uL Eosinophils # (0-0.7) k/uL Basophils # (0-0.2) k/uL PT 10.3 (9.0-12.0) sec INR 1.0 (<1.1) APTT 16.7 L (22.0-30.0) sec Sodium (137-145) mmol/L Potassium (3.5-5.1) mmol/L Chloride (98-107) mmol/L Carbon Dioxide (22-30) mmol/L Anion Gap mmol/L BUN (7-17) mg/dL Creatinine (0.52-1.04) mg/dL Est GFR (MDRD) Af Amer (>60 ml/min/1.73 sqM) Est GFR (MDRD) Non-Af (>60 ml/min/1.73 sqM) Glucose (74-99) mg/dL Calcium (8.4-10.2) mg/dL Magnesium (1.6-2.3) mg/dL Total Bilirubin (0.2-1.3) mg/dL AST (14-36) U/L ALT (9-52) U/L Alkaline Phosphatase (38-126) U/L Total Creatine Kinase (30-135) U/L CK-MB (CK-2) (0.0-2.4) ng/mL CK-MB (CK-2) Rel Index Troponin I (0.000-0.034) ng/mL NT-Pro-B Natriuret Pep 82626 pg/mL Total Protein (6.3-8.2) g/dL Albumin (3.5-5.0) g/dL Disposition Clinical Impression: Pulmonary edema, Bronchospasm, acute, Hyperglycemia, Chronic renal failure syndrome, Chest wall pain, Elevated troponin I level Disposition: ADMITTED IP TO THIS HOSP Condition: Stable Referrals: Jasbir Malone DO [Primary Care Provider] - 1-2 days
[2016-12-24] MEDS ORDERED: NALOXONE 0.4 MG/ML 1 ML VIAL IV PRN (20:21)
[2016-12-24] MEDS ORDERED: FUROSEMIDE 40 MG TAB PO SCH (20:30)
[2016-12-24 21:11] LABS: Partial Thromboplastin Time 16.7 sec (22.0-30.0)
[2016-12-24 21:33] LABS: Glucose,Whole Blood 322 mg/dL (75-99)
[2016-12-24] MEDS: SODIUM CHLORIDE 0.9% 1,000 ML IV SCH (22:00)
[2016-12-25] MEDS: ATORVASTATIN 80 MG TAB PO SCH ×2 (01:17→21:04)
[2016-12-25] MEDS: ASPIRIN 325 MG TAB PO SCH ×2 (01:17→09:11)
[2016-12-25] MEDS: FERROUS SULFATE 325 MG TAB PO SCH ×3 (01:18→17:31)
[2016-12-25] MEDS: FUROSEMIDE 40 MG TAB PO SCH ×3 (01:18→17:28)
[2016-12-25] MEDS: hydrALAZINE HCL 25 MG TAB PO SCH ×4 (01:18→21:05)
[2016-12-25] MEDS: HEPARIN SODIUM,PORCINE 5,000 UNIT/ML 1 ML VIAL SQ SCH ×3 (01:18→17:28)
[2016-12-25] MEDS: NITROGLYCERIN OINT 1 INCH/GM PACKET TOPICAL SCH ×5 (01:18→21:05)
[2016-12-25] MEDS: INSULIN LISPRO (humaLOG) 300 UNIT/3 ML VIAL SQ SCH ×5 (01:21→21:04)
[2016-12-25 01:41] LABS: Glucose,Whole Blood 173 mg/dL (75-99)
[2016-12-25 01:46] LABS: Creatine Kinase MB 1.1 ng/mL (0.0-2.4)
[2016-12-25 01:57] LABS: Troponin I 1.58 ng/mL (0.000-0.034)
[2016-12-25 02:14] LABS: Hepatitis B Surface Ag Index 0.06
[2016-12-25 02:32] LABS: Hepatitis C Virus IgG Index 0.07
[2016-12-25 02:50] LABS: Hepatitis C Virus IgG Ab Negative (Negative)
[2016-12-25 06:22] LABS: Glucose,Whole Blood 158 mg/dL (75-99)
[2016-12-25] MEDS: CARVEDILOL 12.5 MG TAB PO SCH ×2 (06:32→17:27)
[2016-12-25] MEDS: CALCIUM ACETATE 667 MG CAP PO SCH ×3 (06:32→17:35)
[2016-12-25 07:01] LABS: Creatine Kinase MB 0.9 ng/mL (0.0-2.4)
[2016-12-25 07:03] LABS: Troponin I 1.6 ng/mL (0.000-0.034)
[2016-12-25] MEDS: FOLIC ACID-VIT B COMPLEX-VIT C 1 CAP PO SCH (09:10)
[2016-12-25] MEDS: CYANOCOBALAMIN 500 MCG TAB PO SCH (09:11)
[2016-12-25] MEDS: CHOLECALCIFEROL 1,000 UNIT TAB PO SCH (09:11)
[2016-12-25] MEDS: CLOPIDOGREL 75 MG TAB PO SCH (09:11)
[2016-12-25] MEDS: CITALOPRAM HYDROBROMIDE 20 MG TAB PO SCH (09:12)
[2016-12-25] MEDS: ISOSORBIDE MONONITRATE ER 30 MG TAB.ER.24H PO SCH (09:12)
[2016-12-25] MEDS: INSULIN GLARGINE 100 UNIT/ML 10 ML VIAL SQ SCH (09:15)
--- NOTE | 2016-12-25 09:39 | CONS ---
DATE OF CONSULTATION: 12/25/2016 REASON FOR CONSULTATION: End-stage renal disease. HISTORY OF PRESENT ILLNESS: Patient is a 71-year-old female with a history of end-stage renal disease on hemodialysis on a Monday, , Monday schedule. She was admitted to the hospital with complaints of shortness of breath. Patient states that she missed her dialysis on Monday and started developing shortness of breath later on that day. She denied any significant chest pain. Chest x-ray showed evidence of fluid and pulmonary vascular congestion. Patient was dialyzed last night. We had about 2 liters of ultrafiltration. She states she is feeling better but continues to require oxygen and still remains slightly short of breath. Troponin was 0.9, it did go up to 1.6. Patient has a history of coronary artery disease and she was hospitalized about a month ago with congestive heart failure exacerbation chest pain, and did have a coronary stent placed to LAD. PAST MEDICAL HISTORY: End-stage renal disease, type 2 diabetes, hypertension, coronary artery disease, anemia of chronic disease. CKD, bone mineral disorder, hyperlipidemia, depression. PAST SURGICAL HISTORY: AV fistula left arm, cardiac catheterization, PTCA stent to left anterior descending coronary artery, history of non-ST elevation myocardial infarction and peripheral neuropathy. SOCIAL HISTORY: The patient is an ex-smoker. No history of drug abuse or alcohol abuse. REVIEW OF SYSTEMS: As per HPI. Other systems negative. Medications at home prior to admission included: 1. Vitamin D3. 2. Iron. 3. Insulin. 4. PhosLo. 5. Celexa. 6. Imdur. 7. MagnaBind. ALLERGIES INCLUDE GLYBURIDE WHICH CAUSES RASH AND HIVES. Patient had also been on: 1. Coreg. 2. Aspirin. 3. Lipitor. 4. Plavix. 5. Lasix. 6. Hydralazine. On examination, the patient is comfortable, awake, alert, oriented x3, not in any acute distress. Blood pressure is 147/65, heart rate 74 per minute. She is afebrile. Examination of the heart S1 and S2. Examination of the lungs: Bilateral breath sounds are heard. ABDOMEN: Soft, nontender. Examination of lower extremities shows trace edema bilaterally. RELATIONSHIP ADVISOR exam is grossly intact. Labs show a serum troponin up to 1.6. Potassium was 3.6 yesterday, hemoglobin 10.5 g/dL. ASSESSMENT: 1. End-stage renal disease on hemodialysis on a Monday, , Monday schedule. Patient was dialyzed last night and we will plan for dialysis again tomorrow, and then her regular treatment will be on Monday. 2. Elevated troponin rule out cardiac ischemia. 3. History of coronary artery disease, status post stent to left anterior descending coronary artery recently. 4. Anemia of chronic disease. 5. Congestive heart failure, fluid overload, status post 2 liters ultrafiltration last night. We will plan again for tomorrow. PLAN: Repeat dialysis tomorrow with increased UF as tolerated. Follow-up cardiology and repeat labs in a.m. Thank you for this consultation. We will continue to follow the patient with you during her hospitalization.
--- NOTE | 2016-12-25 10:45 | CONS ---
DATE OF CONSULTATION: CHIEF COMPLAINT: Shortness of breath. Jennie is a 71-year-old lady with a history of coronary artery disease, status post multivessel angioplasty, end-stage renal disease on hemodialysis, hypertension, insulin-requiring diabetes and dyslipidemia who comes to the hospital complaining of progressively worsening shortness of breath. It was moderate to severe in intensity, came in, was dialyzed and her shortness of breath has improved. It came on at rest. There were no clear-cut relieving factors. Patient had pulmonary edema. She also ruled in for myocardial infarction. EKG showed ST-T wave changes suggestive of subendocardial ischemia. At the time of my evaluation this morning, patient is comfortable at rest, stable and is free of symptoms. Her O2 sat is 96% on 2 liters. I reviewed her prior records including cardiac catheterizations and angioplasties. Given the elevated troponin and the pulmonary edema, patient will need another catheterization to see if she needs revascularization. Past medical history significant for end-stage renal disease on hemodialysis, coronary artery disease, status post multiple vessel angioplasty, hypertension, dyslipidemia, and chronic renal failure. Medications at home included hydralazine, Imdur, insulin, Lasix, iron, Plavix, Coreg, Lipitor, PhosLo. ALLERGIES: The patient is ALLERGIC TO GLYBURIDE. FAMILY HISTORY: Negative for premature coronary artery disease. SOCIAL HISTORY: Negative for current smoking, EtOH abuse, or drug abuse. REVIEW OF SYSTEMS: HEENT: Unremarkable. CARDIAC: As described above. RESPIRATORY: As described above. GI: Negative. GENITOURINARY: Negative. ALLERGY/IMMUNOLOGY: Negative. SKIN: Negative. MUSCULOSKELETAL: Significant for arthritis. PSYCHOSOCIAL: Negative. ENDOCRINE: Negative. CONSTITUTIONAL: Negative. DERMATOLOGIC: Negative. ONCOLOGICAL: Negative. HEMATOLOGICAL: Negative. RENAL: Significant for renal failure. On exam, comfortable at rest. Vital signs are stable. Chest exam reveals good air entry bilaterally. Heart exam reveals first and second heart sounds. Systolic murmur at the apex. Abdomen is soft. Exam of the extremities did not reveal edema. Peripheral pulses are felt. Labs show that. Creatinine is 6, potassium is 3.6. Troponins are elevated at 2.9, 1.5 and 1.6. Hemoglobin is 10.5. EKG shows sinus rhythm with ST-T wave changes of subendocardial ischemia. ASSESSMENT: 1. Non-ST segment elevation myocardial infarction. 2. Acute pulmonary edema. 3. End-stage renal disease on hemodialysis. PLAN: Patient will continue with current medical therapy and I will discuss with Dr. Chalo Hernandez her primary chair pad maker about a possible cardiac cath.
[2016-12-25 11:56] LABS: Glucose,Whole Blood 275 mg/dL (75-99)
[2016-12-25 12:20] LABS: Hemoglobin A1C 8.3 % (4.2-6.1)
--- NOTE | 2016-12-25 13:07 | HP ---
DATE OF ADMISSION: CHIEF COMPLAINT: Short of breath. HISTORY OF ILLNESS: Ms. Bloom is a 71-year-old female with known history of ESRD on hemodialysis on Monday, , Monday and coronary artery disease, status post stent placement x3, last cardiac catheterization done November 20, 2016 and multiple other medical problems, came to the hospital with complaints of shortness of breath, started about 1:30 a.m. yesterday night which is getting worse and she came to the hospital around 5 p.m. in the evening. Patient was found to have chest x-ray showed evidence of pulmonary edema. Appears to be worse than last exam and increase in pleural fluid compared to last exam consistent with congestive heart failure. Patient underwent hemodialysis last night and Nephrology is planning for another hemodialysis today. Otherwise, patient was found to have elevated BNP level and patient was also found to have elevated troponin levels, possible NSTEMI as well. Cardiology, Pulmonary and Nephrology are following the patient. Currently, patient symptomatically improved. Saturating on nasal cannula. Chest pressure is mainly midsternal. No radiation as well as short of breath. No nausea, vomiting, or diaphoresis. REVIEW OF SYSTEMS: CONSTITUTIONAL: No fever. No chills. RESPIRATORY: No cough or sputum production. CARDIOVASCULAR: No chest pain. Patient does have short of breath and legs trace edema. LUNGS: No cough or sputum production. Patient does have short of breath. ABDOMEN: No nausea or vomiting, abdominal pain. GENITOURINARY: Negative. ENDOCRINE: Negative. PSYCHIATRIC: Negative. SKIN: Negative. MUSCULOSKELETAL: Negative. All other 14-point review of systems negative except as above. PAST MEDICAL HISTORY: 1. ESRD on hemodialysis, TTS with left arm fistula. 2. Insulin-dependent diabetes mellitus. 3. Diabetic peripheral neuropathy. 4. History of NSTEMI. 5. History of coronary artery disease, status post coronary artery stent placement. 6. Hypertension. 7. Hyperlipidemia. 8. History of myocardial infarction. 9. Bilateral cataracts. 10. History of UTI. PAST SURGICAL HISTORY: Appendectomy, cholecystectomy, cardiac catheterization and stent placement, AV fistula with revision in the left arm for dialysis access. PSYCHOSOCIAL HISTORY: Depression. SOCIAL HISTORY: Patient resides with her son, does not use any assistive devices. She can drive. Patient is a former smoker. She started smoking at age 21 and was at 5 cigarettes a day. She only showed for about 6 months. Denied any alcohol. Denied any drugs or IVDU. FAMILY HISTORY: Father had diabetes mellitus, of diabetes mellitus complications in his 40s. Mother has cancer and KS. Home medications include: 1. Vitamin D3. 2. Ferrous sulfate. 3. Lantus. 4. PhosLo. 5. NovoLog. 6. Vitamin B12. 7. Nephrocaps. 8. Celexa. 9. Imdur. 10. MagneBind. 11. Coreg. 12. Aspirin. 13. Atorvastatin. 14. Plavix. 15. Lasix. 16. Nitroglycerine sublingual tablets. 17. Hydralazine. PHYSICAL EXAMINATION: A 71-year-old female, lying in bed. Awake, alert, oriented, x3. Appears to be in no apparent distress. VITALS: Blood pressure is 179/74, pulse is 84, respiration 20, temperature afebrile, pulse ox 94% on 2 L nasal cannula. HEENT: Atraumatic, normocephalic. Neck is supple. No JVD. CVS EXAM: S1, S2 heard. No murmurs, no gallop. LUNGS: Bilateral air entry is present. Decreased breath sounds bilaterally and right basilar crackles. Nonlabored breathing. No wheezing. ABDOMEN: Soft, nontender. Bowel sounds present. SAFETY SPEC: Awake, alert, oriented x3. No focal deficit. EXTREMITIES: Trace edema. Pulses palpable bilaterally. No clubbing or cyanosis. PSYCHIATRIC: Cooperative. LABORATORY DATA: WBC 11.4, hemoglobin 10.5, platelets of 356, INR 1.0. Sodium 138, potassium 3.6, chloride 100, bicarb is 23, BUN 40, creatinine 6.0. Troponin is 0.981 and albumin 3.3, second tropin is 1.58 and third troponin is 1.60. Hepatitic C panel is negative. BNP is 34,900. Liver enzymes are not elevated. Chest x-ray showed pulmonary edema. EKG acute non-ST elevated KS with elevated troponin limits. IMPRESSION: 1. Acute on chronic congestive heart failure with diastolic dysfunction; ejection fraction normal during last echocardiogram. 2. Pulmonary edema and fluid overload. 3. Uncontrolled hypertension. 4. Endstage renal disease on hemodialysis TTS. Hemodialysis again per Nephrology. 5. Hypertension. 6. Hyperlipidemia. 7. Insulin-dependent diabetes mellitus type 2. 8. History of myocardial infarction. 9. Diabetic peripheral neuropathy. 10. History of bilateral cataracts. DISCUSSION AND PLAN: Patient will be continued on Lasix hourly for now and continue with the home medications that include Coreg, aspirin, Plavix and hydralazine and Imdur. Currently, patient is chest pain free. Will continue on hemodialysis per Nephrology. Patient did have a cardiac catheterization done on November 20, 2016. Cardiology is reviewing her previous catheterization at this time and further plan per Dr. Hernandez. Will continue the current management and further recommendations based on clinical course. Prognosis is guarded.
[2016-12-25 17:09] LABS: Glucose,Whole Blood 255 mg/dL (75-99)
[2016-12-25 20:58] LABS: Glucose,Whole Blood 203 mg/dL (75-99)
[2016-12-25] MEDS: SODIUM CHLORIDE 0.9% 1,000 ML IV SCH (21:04)
[2016-12-26] MEDS: HEPARIN SODIUM,PORCINE 5,000 UNIT/ML 1 ML VIAL SQ SCH ×4 (00:30→22:18)
[2016-12-26] MEDS: FUROSEMIDE 40 MG TAB PO SCH ×4 (00:30→22:18)
[2016-12-26] MEDS: CARVEDILOL 12.5 MG TAB PO SCH ×2 (06:55→22:09)
[2016-12-26] MEDS: CALCIUM ACETATE 667 MG CAP PO SCH ×3 (06:55→22:15)
[2016-12-26] MEDS: INSULIN LISPRO (humaLOG) 300 UNIT/3 ML VIAL SQ SCH ×4 (06:55→22:16)
[2016-12-26 06:59] LABS: Glucose,Whole Blood 213 mg/dL (75-99)
[2016-12-26 08:49] LABS: Basophils % (A) 1 %; CH 30.3; Eosinophils # (A) 0.3 k/uL (0-0.7); Eosinophils % (A) 4 %; HCT 29.9 % (34.0-46.0); HDW 2.84; HGB 9.1 gm/dL (11.4-16.0); Luc # (Auto) 0.13; Luc % (Auto) 2; Lymphocytes % (A) 13 %; MCH 29.2 pg (25.0-35.0); MCHC 30.6 g/dL (31.0-37.0); MCV 95.4 fL (80.0-100.0); Mean Platelet Volume 8.6; Monocytes # (A) 0.6 k/uL (0-1.0); Monocytes % (A) 8 %; Neutrophils # (A) 5.6 k/uL (1.3-7.7); Neutrophils % (A) 73 %; RBC 3.13 m/uL (3.80-5.40); RDW 15.9 % (11.5-15.5); WBC 7.6 k/uL (3.8-10.6); WBC (Perox) 7.75
[2016-12-26] MEDS: INSULIN GLARGINE 100 UNIT/ML 10 ML VIAL SQ SCH (08:51)
[2016-12-26] MEDS ORDERED: INSULIN GLARGINE 100 UNIT/ML 10 ML VIAL SQ SCH (09:00)
[2016-12-26 09:21] LABS: Calcium 9.5 mg/dL (8.4-10.2); Potassium 4.4 mmol/L (3.5-5.1)
--- NOTE | 2016-12-26 10:04 | PN ---
DATE OF SERVICE: 12/26/2016 Jennie is a 71-year-old lady with a history of coronary artery disease status post prior angioplasty end-stage renal disease on hemodialysis, hypertension, insulin-requiring diabetes and dyslipidemia, who presented to the hospital complaining of sudden onset shortness of breath. Her symptoms have improved after dialysis. Her troponins came back elevated. At the moment she is doing well and is free of symptoms. On exam, she is comfortable at rest. Vital signs are stable. There is no jugular venous distention. Chest exam reveals good air entry bilaterally. Heart exam reveals first and second heart sounds and a systolic murmur in the left infraclavicular area. Labs show a hemoglobin of 9.1, platelet count is 299, potassium is 4.4, creatinine 6. ASSESSMENT: 1. Non-ST segment elevation myocardial infarction. 2. End-stage renal failure, on hemodialysis. PLAN: Patient is stable clinically. She will continue the aspirin, Lipitor, Coreg, Plavix and Imdur that she is currently on. I spoke to Dr. Hernandez, her primary housing and residence life director, to perform a catheterization on her. We may do it either today or tomorrow.
--- NOTE | 2016-12-26 10:54 | ECHOF ---
Referral Reason:chf MEASUREMENTS -------- HEIGHT: 157.5 cm WEIGHT: 83.5 kg BP: IVSd: 1.2 cm (0.6 - 1.1) LVIDd: 4.9 cm (3.9 - 5.3) LVPWd: 1.4 cm (0.6 - 1.1) IVSs: 1.5 cm LVIDs: 4.0 cm LVPWs: 1.4 cm LA Diam: 3.9 cm (2.7 - 3.8) LAESV Index (A-L): 44.78 ml/m MV EXCURSION: 17.614 mm (> 18.000) MV EF SLOPE: 56 mm/s (70 - 150) EPSS: 0.8 cm MV E Harsha: 1.31 m/s MV DecT: 302 ms MV A Harsha: 1.11 m/s MV E/A Ratio: 1.18 RAP: 5.00 mmHg RVSP: 31.17 mmHg FINDINGS -------- Sinus rhythm. This was a technically good study. There is mild concentric left ventricular hypertrophy. Overall left ventricular systolic function is low-normal with, an EF between 50 - 55 %. The right ventricle is normal in size. LA is severely dilated >40 ml/m2 The right atrial size is normal. There is mild aortic valve sclerosis. There is no evidence of aortic regurgitation. Mild mitral annular calcification present. Moderate mitral regurgitation is present. Mild tricuspid regurgitation present. Right ventricular systolic pressure is normal at < 35 mmHg. There is mild pulmonary hypertension. There is no pulmonic regurgitation present. The aortic root size is normal. There is no pericardial effusion. Small Pleural Effusion. CONCLUSIONS -------- 1. There is mild concentric left ventricular hypertrophy. 2. Small Pleural Effusion. 3. Overall left ventricular systolic function is low-normal with, an EF between 50 - 55 %. 4. LA is severely dilated >40 ml/m2 5. There is mild aortic valve sclerosis. 6. Mild mitral annular calcification present. 7. Moderate mitral regurgitation is present. 8. Mild tricuspid regurgitation present. 9. Right ventricular systolic pressure is normal at < 35 mmHg. 10. There is mild pulmonary hypertension. PHYSICIAN VICE PRESIDENT: Steff Frederick RDCS
[2016-12-26 11:28] VITALS: BMI 33.7
--- NOTE | 2016-12-26 11:55 | PN ---
Patient is seen for followup for end-stage renal disease. She was admitted to the hospital with acute pulmonary edema. Patient was dialyzed over the weekend. She will be dialyzed again today for an extra treatment. She recently had cardiac catheterization and coronary stent placement to LAD and there are plans for repeating the cardiac catheterization. If patient is having her cath today, we will dialyze her after her cardiac cath. Otherwise, will plan on dialysis tomorrow after the cardiac cath is done tomorrow. On examination today, blood pressure is 148/70, heart rate 66 per minute. She is afebrile. Examination of the heart, S1 and S2. Examination of lungs, bilateral breath sounds are heard. Basal crackles are heard bilaterally. No wheezing is heard. Abdomen is soft, nontender. Examination of lower extremities shows no significant edema. HEAD BUCKER exam is grossly intact. Labs show sodium 139, potassium 4.4, hemoglobin 9.1 g/dL. ASSESSMENT: 1. End-stage renal disease on hemodialysis on a Monday, , Monday schedule via left arm AV fistula. 2. Fluid overload, acute pulmonary edema, status post hemodialysis over the weekend. Patient will be dialyzed again today. She will also be having a cardiac catheterization possibly today to rule out any underlying cardiac ischemia. 3. Coronary artery disease with a history of recent cardiac catheterization and stent to left anterior descending coronary artery on 11/20/2016. 4. Anemia of chronic disease. 5. Chronic kidney disease bone mineral disorder. PLAN: Hemodialysis today as well as in a.m. Will plan to dialyze after the cardiac cath either today or tomorrow.
[2016-12-26 12:05] LABS: Glucose,Whole Blood 270 mg/dL (75-99)
--- NOTE | 2016-12-26 13:03 | P.PN ---
Subjective Patient is a 71-year-old female with complex medical history significant for end -stage renal disease on hemodialysis, coronary artery disease status post stent placement 3 with last cardiac catheterization on 11/20/2016. Patient admitted to the hospital with complaints of shortness of breath. Patient was found to have evidence of pulmonary edema and elevated troponins with possible NSTEMI. Patient was dialyzed on the night of admission, yesterday, and is scheduled for another hemodialysis today. Cardiology, pulmonary, and nephrology are following patient. Patient is tentatively scheduled for heart catheterization today or tomorrow. Patient is feeling better. Denies chills, fevers, cough, nausea, vomiting, shortness of breath, palpitations, chest pain, or abdominal pain. Patient is tolerating a regular diet. Patient is urinating without difficulty. Patient denies diarrhea or constipation. Patient is sitting up in a chair on room air with good oxygen saturation. Objective - Vital Signs Vital signs: Vital Signs Temp 96.4 F L 12/26/16 08:00 Pulse 75 12/26/16 12:00 Resp 16 12/26/16 12:00 BP 132/78 12/26/16 12:00 Pulse Ox 98 12/26/16 12:00 Intake & Output 12/25/16 12/26/16 12/26/16 18:59 06:59 18:59 Intake Total 280 400 Output Total 250 Balance 280 -250 400 Weight 83.7 kg 83.7 kg Intake: Oral 280 400 Output: Urine 250 Other: Voiding Method Toilet Toilet # Voids 1 0 - Exam GENERAL: Pt awake and alert, well-appearing, well-nourished, and in no acute distress. HEAD: Atraumatic, normocephalic. EYES: Pupils equal and round. Sclera anicteric, conjunctiva are normal. ENT: Moist mucous membranes. NECK:Normal range of motion, supple without lymphadenopathy or JVD. LUNGS: Breath sounds diminished with right basilar crackles. No wheezes, rales , or rhonchi. HEART: Heart S1, S2, no S3 or S4. Regular rate and rhythm. Systolic murmur. ABDOMEN: Soft, obese, nontender, nondistended, normoactive bowel sounds. No guarding, no rebound. EXTREMITIES: Pulses palpable bilaterally.. No edema. No calf tenderness. NEUROLOGICAL: Pt oriented x 3. No focal deficits. Strength and sensation grossly intact. PSYCH: Normal mood, normal affect. SKIN: Warm, dry, intact. Normal turgor. No rashes or lesions. - Labs CBC & Chem 7: 12/26/16 08:41 12/26/16 08:39 Labs: Abnormal Lab Results - Last 24 Hours (Table) 12/25/16 12/25/16 12/25/16 Range/Units 05:18 16:44 20:25 RBC (3.80-5.40) m/uL Hgb (11.4-16.0) gm/dL Hct (34.0-46.0) % MCHC (31.0-37.0) g/dL RDW (11.5-15.5) % BUN (7-17) mg/dL Creatinine (0.52-1.04) mg/dL Glucose (74-99) mg/dL POC Glucose (mg/dL) 255 H 203 H (75-99) mg/dL Hemoglobin A1c 8.3 H (4.2-6.1) % 12/26/16 12/26/16 12/26/16 Range/Units 06:34 08:39 08:41 RBC 3.13 L (3.80-5.40) m/uL Hgb 9.1 L (11.4-16.0) gm/dL Hct 29.9 L (34.0-46.0) % MCHC 30.6 L (31.0-37.0) g/dL RDW 15.9 H (11.5-15.5) % BUN 38 H (7-17) mg/dL Creatinine 6.06 H* (0.52-1.04) mg/dL Glucose 223 H (74-99) mg/dL POC Glucose (mg/dL) 213 H (75-99) mg/dL Hemoglobin A1c (4.2-6.1) % 12/26/16 Range/Units 12:03 RBC (3.80-5.40) m/uL Hgb (11.4-16.0) gm/dL Hct (34.0-46.0) % MCHC (31.0-37.0) g/dL RDW (11.5-15.5) % BUN (7-17) mg/dL Creatinine (0.52-1.04) mg/dL Glucose (74-99) mg/dL POC Glucose (mg/dL) 270 H (75-99) mg/dL Hemoglobin A1c (4.2-6.1) % Assessment and Plan Plan: Impression: 1. Non-ST segment elevation myocardial infarction. 2. Acute on chronic congestive heart failure with diastolic dysfunction; preserved left ventricular systolic function with an EF between 50-55%. 3. Pulmonary edema and fluid overload, present on admission. 4. Uncontrolled hypertension, present on admission. 5. End-stage renal disease on hemodialysis Monday, , and Monday. 6. Hypertension. 7. Hyperlipidemia. 8. Insulin-dependent diabetes mellitus type 2. 9. Coronary artery disease with previous stent placement to LAD on 11/20/2016. 10. Anemia of chronic disease. 11. Chronic kidney disease both mineral disorder. 12. Diabetic peripheral neuropathy. 13. History of bilateral cataracts. 14. Mild pulmonary hypertension. Plan: Patient is scheduled for hemodialysis today and again tomorrow per nephrology. Patient will either undergo heart catheterization today or tomorrow per cardiology. Continue current medications. Will increase Lantus to 35 units for better glucose control. Repeat CBC and BMP in a.m. The above impression and plan have been discussed and directed by Dr. Malone. Maureen VALENCIA-Ita acting as scribe for Dr. Malone.
[2016-12-26] MEDS ORDERED: INSULIN GLARGINE 100 UNIT/ML 10 ML VIAL SQ ONE (13:15)
[2016-12-26 16:58] LABS: Glucose,Whole Blood 136 mg/dL (75-99)
[2016-12-26] MEDS: FERROUS SULFATE 325 MG TAB PO SCH ×2 (17:04→22:10)
[2016-12-26] MEDS: hydrALAZINE HCL 25 MG TAB PO SCH ×3 (17:04→22:12)
[2016-12-26] MEDS: CHOLECALCIFEROL 1,000 UNIT TAB PO SCH (17:17)
[2016-12-26 20:34] LABS: Glucose,Whole Blood 123 mg/dL (75-99)
[2016-12-26] MEDS: ASPIRIN 325 MG TAB PO SCH (22:10)
[2016-12-26] MEDS: ATORVASTATIN 80 MG TAB PO SCH (22:12)
[2016-12-26] MEDS: ISOSORBIDE MONONITRATE ER 30 MG TAB.ER.24H PO SCH (22:13)
[2016-12-26] MEDS: CYANOCOBALAMIN 500 MCG TAB PO SCH (22:15)
[2016-12-26] MEDS: CLOPIDOGREL 75 MG TAB PO SCH (22:15)
[2016-12-26] MEDS: CITALOPRAM HYDROBROMIDE 20 MG TAB PO SCH (22:15)
[2016-12-26] MEDS: FOLIC ACID-VIT B COMPLEX-VIT C 1 CAP PO SCH (22:15)
[2016-12-26] MEDS: SODIUM CHLORIDE 0.9% 1,000 ML IV SCH (22:16)
[2016-12-27 06:23] LABS: Glucose,Whole Blood 199 mg/dL (75-99)
[2016-12-27] MEDS: CARVEDILOL 12.5 MG TAB PO SCH ×2 (06:53→16:15)
[2016-12-27] MEDS: INSULIN LISPRO (humaLOG) 300 UNIT/3 ML VIAL SQ SCH ×3 (06:53→17:41)
[2016-12-27] MEDS: CITALOPRAM HYDROBROMIDE 20 MG TAB PO SCH (06:54)
[2016-12-27] MEDS: HEPARIN SODIUM,PORCINE 5,000 UNIT/ML 1 ML VIAL SQ SCH ×2 (06:54→16:14)
[2016-12-27] MEDS: ASPIRIN 325 MG TAB PO SCH (06:54)
[2016-12-27] MEDS: CLOPIDOGREL 75 MG TAB PO SCH (06:55)
[2016-12-27] MEDS: hydrALAZINE HCL 25 MG TAB PO SCH ×2 (06:55→16:15)
[2016-12-27 07:10] LABS: Anisocytosis Slight; Basophils # (A) 0.1 k/uL (0-0.2); Basophils % (A) 1 %; CH 30.3; Eosinophils # (A) 0.4 k/uL (0-0.7); Eosinophils % (A) 5 %; HCT 29.8 % (34.0-46.0); HDW 2.94; HGB 9.5 gm/dL (11.4-16.0); Hypochromasia Slight; Luc % (Auto) 3; Lymphocytes # (A) 1.4 k/uL (1.0-4.8); Lymphocytes % (A) 18 %; MCH 30.3 pg (25.0-35.0); MCHC 31.8 g/dL (31.0-37.0); MCV 95.2 fL (80.0-100.0); Mean Platelet Volume 7.6; Monocytes # (A) 0.6 k/uL (0-1.0); Monocytes % (A) 8 %; Neutrophils # (A) 5.2 k/uL (1.3-7.7); Neutrophils % (A) 66 %; RBC 3.13 m/uL (3.80-5.40); RDW 16.4 % (11.5-15.5); WBC 7.9 k/uL (3.8-10.6); WBC (Perox) 8.12
[2016-12-27 07:24] LABS: Calcium 8.5 mg/dL (8.4-10.2)
[2016-12-27] MEDS ORDERED: fentaNYL (PF) 50 MCG/ML 2 ML AMP ONE (07:40)
[2016-12-27] MEDS ORDERED: diphenhydrAMINE 50 MG/ML 1 ML VIAL ONE (07:40)
[2016-12-27] MEDS ORDERED: LIDOCAINE 2% INJ 20 MG/ML SQ ONE ×2 (07:44→07:45)
[2016-12-27] MEDS ORDERED: fentaNYL (PF) 50 MCG/ML 2 ML AMP IV ONE (07:44)
[2016-12-27] MEDS ORDERED: diphenhydrAMINE 50 MG/ML 1 ML VIAL IVP ONE (07:44)
[2016-12-27] MEDS ORDERED: SODIUM CHLORIDE 0.9% 1,000 ML IV ONE (07:50)
[2016-12-27] MEDS ORDERED: IODIXANOL 320 MG/ML 100 ML INTRAARTER ONE (08:01)
[2016-12-27] MEDS ORDERED: RX INFO: IV CONTRAST WAS GIVEN 1 EACH MISC MISCELLANE PRN (08:06)
[2016-12-27] MEDS ORDERED: NITROGLYCERIN SL TABS 0.4 MG TAB SUBLINGUAL PRN (08:10)
[2016-12-27] MEDS: SODIUM CHLORIDE 0.9% 1,000 ML IV SCH (11:29)
[2016-12-27 12:13] LABS: Glucose,Whole Blood 147 mg/dL (75-99)
[2016-12-27] MEDS: CALCIUM ACETATE 667 MG CAP PO SCH ×3 (12:22→16:15)
[2016-12-27] MEDS: FUROSEMIDE 40 MG TAB PO SCH ×2 (14:40→16:14)
[2016-12-27] MEDS: ISOSORBIDE MONONITRATE ER 60 MG TAB.ER.24H PO SCH (14:40)
[2016-12-27] MEDS: MAGNESIUM OXIDE 400 MG TAB PO SCH ×2 (14:40→16:15)
[2016-12-27] MEDS: FOLIC ACID-VIT B COMPLEX-VIT C 1 CAP PO SCH (14:41)
[2016-12-27] MEDS: CHOLECALCIFEROL 1,000 UNIT TAB PO SCH (14:41)
[2016-12-27] MEDS: FERROUS SULFATE 325 MG TAB PO SCH ×2 (14:41→16:15)
[2016-12-27] MEDS: CYANOCOBALAMIN 500 MCG TAB PO SCH (14:41)
--- NOTE | 2016-12-27 15:09 | P.PN ---
Subjective Patient is a 71-year-old female with complex medical history significant for end -stage renal disease on hemodialysis, coronary artery disease status post stent placement 3 with last cardiac catheterization on 11/20/2016. Patient admitted to the hospital with complaints of shortness of breath. Patient was found to have evidence of pulmonary edema and elevated troponins with possible NSTEMI. Patient is status post cardiac catheterization which was reported clear by nurse. Patient is currently awaiting hemodialysis this afternoon. Patient is evaluated on selective care unit where she is bedridden with FemoStop in place. Denies chills, fevers, cough, nausea, vomiting, shortness of breath, palpitations, chest pain, or abdominal pain. Afebrile. Hemodynamically stable. Objective - Vital Signs Vital signs: Vital Signs Temp 97.6 F 12/27/16 11:00 Pulse 61 12/27/16 12:11 Resp 16 12/27/16 11:51 BP 105/52 12/27/16 12:11 Pulse Ox 99 12/27/16 12:11 Intake & Output 12/26/16 12/27/16 12/27/16 18:59 06:59 18:59 Intake Total 700 50 Output Total 250 Balance 700 -250 50 Weight 83.7 kg 82.9 kg Intake: IV 50 Oral 700 Output: Urine 250 Other: Voiding Method Toilet Toilet Toilet # Voids 0 0 - Exam GENERAL: Pt awake and alert, well-appearing, well-nourished, and in no acute distress. HEAD: Atraumatic, normocephalic. EYES: Pupils equal and round. Sclera anicteric, conjunctiva are normal. ENT: Moist mucous membranes. NECK:Supple without lymphadenopathy or JVD. LUNGS: Breath sounds diminished. No wheezes, rales, or rhonchi. HEART: Heart S1, S2, no S3 or S4. Regular rate and rhythm. Systolic murmur. ABDOMEN: Soft, obese, nontender, nondistended, normoactive bowel sounds. No guarding, no rebound. EXTREMITIES: Pulses palpable bilaterally. No edema. No calf tenderness. NEUROLOGICAL: Pt oriented x 3. No focal deficits. Strength and sensation grossly intact. PSYCH: Normal mood, normal affect. SKIN: Warm, dry. FemoStop to right groin with puncture site dry and soft. - Labs CBC & Chem 7: 12/27/16 05:45 12/27/16 05:45 Labs: Abnormal Lab Results - Last 24 Hours (Table) 12/26/16 12/26/16 12/27/16 Range/Units 16:56 20:33 05:45 RBC 3.13 L (3.80-5.40) m/uL Hgb 9.5 L (11.4-16.0) gm/dL Hct 29.8 L (34.0-46.0) % RDW 16.4 H (11.5-15.5) % BUN (7-17) mg/dL Creatinine (0.52-1.04) mg/dL Glucose (74-99) mg/dL POC Glucose (mg/dL) 136 H 123 H (75-99) mg/dL 12/27/16 12/27/16 12/27/16 Range/Units 05:45 06:22 12:12 RBC (3.80-5.40) m/uL Hgb (11.4-16.0) gm/dL Hct (34.0-46.0) % RDW (11.5-15.5) % BUN 25 H (7-17) mg/dL Creatinine 4.33 H (0.52-1.04) mg/dL Glucose 192 H (74-99) mg/dL POC Glucose (mg/dL) 199 H 147 H (75-99) mg/dL Assessment and Plan Plan: Impression: 1. Non-ST segment elevation myocardial infarction status post heart catheterization on 12/27/2016. 2. Acute on chronic congestive heart failure with diastolic dysfunction; preserved left ventricular systolic function with an EF between 50-55%. 3. Pulmonary edema and fluid overload, present on admission, improved. 4. Uncontrolled hypertension, present on admission. 5. End-stage renal disease on hemodialysis Monday, , and Monday. 6. Hypertension. 7. Hyperlipidemia. 8. Insulin-dependent diabetes mellitus type 2. 9. Coronary artery disease with previous stent placement to LAD on 11/20/2016. 10. Anemia of chronic disease. 11. Chronic kidney disease both mineral disorder. 12. Diabetic peripheral neuropathy. 13. History of bilateral cataracts. 14. Mild pulmonary hypertension. Plan: Continue to monitor patient. Patient is scheduled for hemodialysis later today. Continue current medications. Repeat CBC and BMP in a.m. Possible discharge home in a.m. The above impression and plan have been discussed and directed by Dr. Malone. Maureen BRANCH acting as scribe for Dr. Malone.
[2016-12-27] MEDS: NITROGLYCERIN OINT 1 INCH/GM PACKET TOPICAL SCH (15:46)
[2016-12-27] MEDS: INSULIN GLARGINE 100 UNIT/ML 10 ML VIAL SQ SCH (16:14)
[2016-12-27 16:55] LABS: Glucose,Whole Blood 145 mg/dL (75-99)
--- NOTE | 2016-12-27 18:41 | CC ---
DATE OF SERVICE: Margarita Bloom is a 71-year-old female. Patient's referring physician is Dr. Jasbir Malone. [place] [id number]. CLINICAL INFORMATION: Margarita Bloom is a known patient of multiple medical problems including diabetes, hypertension, hyperlipidemia, renal failure and recurrent angina, admitted to the hospital with unstable anginal symptoms without any enzyme leaks. With all the continued symptoms, the patient was advised to have a cardiac catheterization by my associate. Patient was informed of all the risks and benefits of the procedure, understood and accepted. PROCEDURE: Left heart catheterization done through right femoral artery and with sterile precautions right common femoral artery is cannulated using a Seldinger technique followed by selective coronary angiograms left and right and left ventricular end-diastolic pressures were recorded. Left ventriculogram was not done to reduce the contrast load. Patient tolerated the procedure very well. HEMODYNAMIC DATA: Aortic pressure noted to be 130/45 with a mean pressure of 77%. Left ventricular end-diastolic pressure following coronary arteriography noted to be 12 to 16 mmHg. There was no gradient across the aortic valve. SELECTIVE CORONARY ARTERIOGRAPHY: Left coronary artery is of normal caliber, free of any atherosclerotic occlusive disease rather than mild calcification, calcified. Left anterior descending is a calcified blood vessel, tortuous, noted to have no evidence of restenosis in the segment, which was stented in the mid segment, twice. Distal course is rather free of any atherosclerotic occlusive disease. Diagonal also free of any atherosclerotic occlusive disease. Left circumflex is a moderate-caliber, nondominant, noted to have mild irregularities in its proximal portion and this vessel was never intervened and distal course of the vessel was free of any atherosclerotic occlusive lesions, heavily calcified. Right coronary artery is tortuous, calcified blood vessel free of atherosclerotic occlusive disease throughout its course. ASSESSMENT: No evidence of re-stenosis in any of the blood vessels other than mild irregularities in the circumflex, which were similar to before, not exceeding 30 to 40% in its proximal portion. RECOMMENDATIONS: Continue on medical therapy and risk factor modifications as recommended.
--- NOTE | 2016-12-27 19:28 | PN ---
Patient is seen for followup for end-stage renal disease. She is currently comfortable. Patient has just returned from cardiac cath which showed no evidence of re-stenosis in the blood vessels. Patient is scheduled for hemodialysis today.
[2016-12-27] MEDS ORDERED: DARBEPOETIN ALFA 40 MCG/0.4 ML SYRINGE SQ SCH (19:30)
--- NOTE | 2016-12-27 19:36 | PN ---
Patient is seen for followup for end-stage renal disease. She is currently lying in bed, comfortable. She has just returned from cardiac catheterization, which did not reveal any evidence of restenosis. Patient is scheduled for hemodialysis today. On examination, blood pressure is 105/52, heart rate 63 per minute. She is afebrile. EXAMINATION OF THE HEART: S1 and S2. EXAMINATION OF THE LUNGS: Bilateral breath sounds are heard. ABDOMEN: Soft, nontender. Examination of lower extremities shows no evidence of edema. Labs show potassium 4.0, hemoglobin 9.5 g/dL. ASSESSMENT: 1. End-stage renal disease, on hemodialysis on a Monday, , Monday schedule regularly. Patient is scheduled for hemodialysis today. 2. Acute pulmonary edema. No evidence of underlying ischemia. 3. Anemia of chronic disease. Will give patient a dose of Aranesp prior to discharge. 4. Chronic kidney disease bone mineral disorder. Continue current phosphate binders. PLAN: Hemodialysis today. Aranesp x1 today for anemia. Patient is stable for discharge subsequently.
[2016-12-27 20:59] LABS: Glucose,Whole Blood 158 mg/dL (75-99)
[2016-12-28] MEDS: ATORVASTATIN 80 MG TAB PO SCH
[2016-12-28 06:10] LABS: Glucose,Whole Blood 154 mg/dL (75-99)
[2016-12-28 06:18] LABS: Anisocytosis Slight; Basophils % (A) 0 %; CH 30.2; CHCM 32.2; Eosinophils # (A) 0.3 k/uL (0-0.7); Eosinophils % (A) 4 %; HCT 28.8 % (34.0-46.0); HDW 2.96; HGB 9.4 gm/dL (11.4-16.0); Hypochromasia Slight; Luc # (Auto) 0.23; Luc % (Auto) 3; Lymphocytes # (A) 1.1 k/uL (1.0-4.8); Lymphocytes % (A) 14 %; MCH 30.6 pg (25.0-35.0); MCHC 32.5 g/dL (31.0-37.0); MCV 94.3 fL (80.0-100.0); Mean Platelet Volume 7.8; Monocytes # (A) 0.5 k/uL (0-1.0); Monocytes % (A) 7 %; Neutrophils # (A) 5.2 k/uL (1.3-7.7); Neutrophils % (A) 71 %; RBC 3.06 m/uL (3.80-5.40); RDW 16.1 % (11.5-15.5); WBC 7.4 k/uL (3.8-10.6); WBC (Perox) 7.75
[2016-12-28 06:34] LABS: Calcium 8.2 mg/dL (8.4-10.2); Potassium 3.5 mmol/L (3.5-5.1)
[2016-12-28 07:52] VITALS: RESP 16
[2016-12-28] MEDS ORDERED: GELATIN SPONGE,ABSORB (SMALL) 1 EACH SPONGE ONE (10:15)
[2016-12-28] MEDS: MAGNESIUM OXIDE 400 MG TAB PO SCH (10:52)
[2016-12-28] MEDS: ASPIRIN 325 MG TAB PO SCH (10:52)
[2016-12-28] MEDS: INSULIN GLARGINE 100 UNIT/ML 10 ML VIAL SQ SCH (10:53)
[2016-12-28] MEDS: CITALOPRAM HYDROBROMIDE 20 MG TAB PO SCH (10:53)
[2016-12-28] MEDS: hydrALAZINE HCL 25 MG TAB PO SCH ×2 (10:53)
[2016-12-28] MEDS: FUROSEMIDE 40 MG TAB PO SCH ×2 (10:53)
[2016-12-28] MEDS: ISOSORBIDE MONONITRATE ER 60 MG TAB.ER.24H PO SCH ×2 (10:53)
[2016-12-28] MEDS: CLOPIDOGREL 75 MG TAB PO SCH (10:53)
[2016-12-28] MEDS: HEPARIN SODIUM,PORCINE 5,000 UNIT/ML 1 ML VIAL SQ SCH ×2 (10:55)
[2016-12-28] MEDS: CALCIUM ACETATE 667 MG CAP PO SCH ×2 (11:06→12:12)
[2016-12-28] MEDS: INSULIN LISPRO (humaLOG) 300 UNIT/3 ML VIAL SQ SCH ×3 (11:08→12:14)
[2016-12-28] MEDS: CARVEDILOL 12.5 MG TAB PO SCH (11:09)
[2016-12-28 11:33] VITALS: BP 126/61; PULSE 79; TEMP 97.6
--- NOTE | 2016-12-28 11:33 | PN ---
Jennie is a 71-year-old lady who was admitted to hospital with unstable angina, had mild troponin elevation pressure non-ST segment elevation and pulmonary edema, underwent cardiac catheterization by my associate Dr. Chalo Hernandez and was advised medical therapy. Patient did not have any evidence of restenosis. At the time of my evaluation this morning, she is doing well and is free of symptoms. On exam, vital signs are stable. There is no jugular venous distention. Chest exam reveals good air entry bilaterally. Heart exam reveals first and second heart sounds. No gallop. Exam of the extremities did not reveal any edema. Groin is free of bleeding, bruit, hematoma. Foot pulses are intact. Hemoglobin is 9.4, BUN is 19, creatinine 3.3. ASSESSMENT: Non-ST segment elevation myocardial infarction status post catheterization and medical therapy. Patient is on optimal medications including aspirin, Lipitor, Coreg, hydralazine, Imdur along with Lasix. The patient has end-stage renal disease and is on hemodialysis.
[2016-12-28 12:06] LABS: Glucose,Whole Blood 148 mg/dL (75-99)
[2016-12-28] MEDS: FERROUS SULFATE 325 MG TAB PO SCH (12:12)
[2016-12-28] MEDS: CYANOCOBALAMIN 500 MCG TAB PO SCH (12:13)
[2016-12-28] MEDS: CHOLECALCIFEROL 1,000 UNIT TAB PO SCH (12:13)
[2016-12-28] MEDS: FOLIC ACID-VIT B COMPLEX-VIT C 1 CAP PO SCH (12:18)
--- NOTE | 2016-12-28 16:44 | P.DS ---
Providers Date of admission: 12/24/16 20:14 Expected date of discharge: 12/28/16 Attending physician: Jasbir Malone Consults: 12/25/16 01:55 Consult Physician Routine Consulting Provider: Eddie Vazquez Consult Reason/Comments: pulmonary edema Do you want consulting provider notified?: Yes Primary care physician: Jasbir Malone [facility] Course: Patient is a 71-year-old female with complex medical history significant for end -stage renal disease on hemodialysis, coronary artery disease status post stent placement 3 with last cardiac catheterization on 11/20/2016. Patient admitted to the hospital with complaints of shortness of breath. Patient was found to have evidence of pulmonary edema and elevated troponins with possible NSTEMI. Patient underwent cardiac catheterization with no evidence of restenosis. Patient improved with daily hemodialysis and was felt stable for discharge to home. Patient to follow-up in the outpatient dialysis center and follow-up with consultants as directed. Discharge diagnoses: 1. Non-ST segment elevation myocardial infarction status post heart catheterization on 12/27/2016 with no evidence of restenosis. 2. Acute on chronic congestive heart failure with diastolic dysfunction; preserved left ventricular systolic function with an EF between 50-55%. 3. Pulmonary edema and fluid overload, present on admission, improved. 4. Uncontrolled hypertension, present on admission, improved. 5. End-stage renal disease on hemodialysis Monday, , and Monday. 6. Hypertension. 7. Hyperlipidemia. 8. Insulin-dependent diabetes mellitus type 2. 9. Coronary artery disease with previous stent placement to LAD on 11/20/2016. 10. Anemia of chronic disease. 11. Chronic kidney disease both mineral disorder. 12. Diabetic peripheral neuropathy. 13. History of bilateral cataracts. 14. Mild pulmonary hypertension. The above impression and plan have been discussed and directed by Dr. Malone. Maureen BRANCH acting as scribe for Dr. Malone. Pertinent Studies: EKG; chest x-ray; echocardiogram with Doppler Procedures: Cardiac catheterization Patient Condition at Discharge: Stable Plan - Discharge Summary New Discharge Prescriptions: Furosemide [Lasix] 40 mg PO Q8HR #90 tab Discharge Medication List Cholecalciferol [Vitamin D3] 1,000 unit PO DAILY 03/13/16 [History] Ferrous Sulfate [Iron (65 MG Elemental)] 325 mg PO BID 03/13/16 [History] Insulin Glargine [Lantus] 30 unit SQ QAM 03/13/16 [History] Calcium Acetate [Phoslo] 1,334 mg PO AC-TID 03/14/16 [History] Insulin Aspart [NovoLOG] 0 - 15 unit SQ AC-TID 03/14/16 [History] Cyanocobalamin [Vitamin B-12] 1,000 mcg PO DAILY 06/06/16 [History] Folic Acid-Vit B Complex-Vit C [Nephrocaps] 1 cap PO DAILY 06/06/16 [History] Citalopram Hydrobromide [CeleXA] 20 mg PO DAILY 08/05/16 [History] Carvedilol [Coreg*] 12.5 mg PO BID-W/MEALS #60 tab 08/09/16 [Rx] Isosorbide Mononitrate ER [Imdur] 30 mg PO DAILY 11/19/16 [History] Magnebind 300 1 tab PO AC-BID 11/19/16 [History] Aspirin 325 mg PO DAILY #30 tab 11/22/16 [Rx] Atorvastatin [Lipitor] 80 mg PO HS #30 tab 11/22/16 [Rx] Clopidogrel [Plavix] 75 mg PO DAILY #30 tab 11/22/16 [Rx] Nitroglycerin Sl Tabs [Nitrostat] 0.4 mg SUBLINGUAL Q5M PRN #25 tab 11/22/16 [Rx ] hydrALAZINE HCL [Apresoline] 25 mg PO TID #90 tab 11/22/16 [Rx] Darbepoetin Luis Manuel [Aranesp] 40 mcg SQ Q7D syringe 12/28/16 [Rx] Furosemide [Lasix] 40 mg PO Q8HR #90 tab 12/28/16 [Rx] Follow up Appointment(s)/Referral(s): [facility] [Provider Group] - 01/04/17 9:00 am ([facility]AN[facility] VANEGAS) Jacy Brooks MD [STAFF PHYSICIAN] - 1 Week Jasbir Malone DO [Primary Care Provider] - 12/30/16 10:40 am Patient Instructions/Handouts: 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 Discharge Disposition: HOME SELF-CARE
--- NOTE | 2016-12-28 23:07 | PN ---
Patient is seen for followup for end-stage renal disease. She will be discharged today. She is seen on hemodialysis, tolerating her treatment well. She is normally scheduled for Monday, , Monday schedule as outpatient. She was admitted with fluid overload and has been dialyzed on a daily basis. On examination today, blood pressure was 126/61, heart rate 79 per minute. Patient is afebrile. Examination shows no significant edema in lower extremities. Abdomen is soft, nontender. ASSESSMENT: 1. End-stage renal disease, on hemodialysis on a Monday, , Monday schedule as outpatient. 2. Pulmonary edema with no evidence of cardiac ischemia or coronary stenosis on repeat cardiac catheterization this admission. 3. Anemia of chronic disease. 4. Chronic kidney disease bone mineral disorder. 5. Mild hypokalemia. PLAN: Patient is advised to follow up as outpatient for dialysis tomorrow.
== END 2016-12-28 13:20 | disposition home or self-care (01) | DRG 280 ==
LOC: EC 17:20 → 6SEL 20:14
PROVIDERS: ADMIT Family Medicine; ATTEND Family Medicine
PROC: 5A1D60Z (ICD-10-PCS; principal; 2016-12-24)
PROC: 4A023N7 Measurement of Cardiac Sampling and Pressure, Left Heart, Percutaneous Approach (ICD-10-PCS; 2016-12-27)
PROC: B2111ZZ Fluoroscopy of Multiple Coronary Arteries using Low Osmolar Contrast (ICD-10-PCS; 2016-12-27)
PROC: B2151ZZ Fluoroscopy of Left Heart using Low Osmolar Contrast (ICD-10-PCS; 2016-12-27)
DX: I21.4 Non-ST elevation (NSTEMI) myocardial infarction (principal); N18.6 End stage renal disease; I50.33 Acute on chronic diastolic (congestive) heart failure; E11.22 Type 2 diabetes mellitus with diabetic chronic kidney disease; I27.2 Other secondary pulmonary hypertension; E11.42 Type 2 diabetes mellitus with diabetic polyneuropathy; I13.2 Hypertensive heart and chronic kidney disease with heart failure and with stage 5 chronic kidney disease, or end stage renal disease; E11.65 Type 2 diabetes mellitus with hyperglycemia; D63.8 Anemia in other chronic diseases classified elsewhere; I25.110 Atherosclerotic heart disease of native coronary artery with unstable angina pectoris; E87.6 Hypokalemia; I25.2 Old myocardial infarction; E78.5 Hyperlipidemia, unspecified; F32.9 Major depressive disorder, single episode, unspecified; R05 Cough; H26.9 Unspecified cataract; M19.90 Unspecified osteoarthritis, unspecified site; Z99.2 Dependence on renal dialysis; Z95.5 Presence of coronary angioplasty implant and graft; Z79.4 Long term (current) use of insulin; Z79.82 Long term (current) use of aspirin; Z87.440 Personal history of urinary (tract) infections; Z83.3 Family history of diabetes mellitus; Z80.9 Family history of malignant neoplasm, unspecified; Z82.49 Family history of ischemic heart disease and other diseases of the circulatory system; Z88.8 Allergy status to other drugs, medicaments and biological substances; Z87.891 Personal history of nicotine dependence; Z79.02 Long term (current) use of antithrombotics/antiplatelets; Z79.899 Other long term (current) drug therapy; Z90.49 Acquired absence of other specified parts of digestive tract
CPT/HCPCS: 36415; 71020; 80048; 80053; 80074; 82550; 82553; 83036; 83735; 83880; 84484; 85025; 85610; 85730; 90935; 93005; 93306; 93458; 99291

== ENCOUNTER 2017-04-21 03:47 | Inpatient (IN) | payer MEDICARE, OTHER ==
--- NOTE | 2017-04-21 04:16 | ED ---
General Adult HPI - General Chief complaint: Chest Pain Stated complaint: WILDA Time Seen by Provider: 04/21/17 04:05 Source: patient, RN notes reviewed, old records reviewed Mode of arrival: wheelchair Limitations: no limitations - History of Present Illness Initial comments: This is a 71-year-old female ER for evaluation of chest pain. Often sitting on chest, patient has extensive medical history agree muscle cardiac risk factors, diabetes or blood pressure cholesterol dialysis. Patient has no prior history of heart attack but states this is a 71-year-old female ER for evaluation of anterior chest pain shortness of breath. Patient does have a significant medical history that includes multiple cardiac risk factors including dialysis, high blood pressure, high cholesterol, diabetes. No recent travel history, no sick contacts. that she is having severe anterior chest pain and shortness of breath. She hasn't missed dialysis weeks secondary to diarrhea and not feeling well. Patient denies any fevers. Symptoms began 3 hours prior to arrival, worse with exertion - Related Data Home Medications Medication Instructions Recorded Confirmed Cholecalciferol [Vitamin D3] 1,000 unit PO DAILY 03/13/16 04/21/17 Ferrous Sulfate [Iron (65 MG 325 mg PO BID 03/13/16 04/21/17 Elemental)] Insulin Glargine [Lantus] 30 unit SQ QAM 03/13/16 04/21/17 Calcium Acetate [Phoslo] 1,334 mg PO AC-TID 03/14/16 04/21/17 Insulin Aspart [NovoLOG] See Protocol SQ AC-TID 03/14/16 04/21/17 Cyanocobalamin [Vitamin B-12] 1,000 mcg PO DAILY 06/06/16 04/21/17 Folic Acid-Vit B Complex-Vit C 1 cap PO DAILY 06/06/16 04/21/17 [Nephrocaps] Citalopram Hydrobromide [CeleXA] 20 mg PO DAILY 08/05/16 04/21/17 Isosorbide Mononitrate ER [Imdur] 30 mg PO DAILY 11/19/16 04/21/17 Magnebind 300 1 tab PO AC-BID 11/19/16 04/21/17 Furosemide [Lasix] 40 mg PO BID 04/21/17 04/21/17 Lisinopril [Zestril] 10 mg PO DAILY 04/21/17 04/21/17 Meclizine [Antivert] 25 mg PO BID 04/21/17 04/21/17 Previous Rx's Medication Instructions Recorded Carvedilol [Coreg*] 12.5 mg PO BID-W/MEALS #60 tab 08/09/16 Aspirin 325 mg PO DAILY #30 tab 11/22/16 Atorvastatin [Lipitor] 80 mg PO HS #30 tab 11/22/16 Clopidogrel [Plavix] 75 mg PO DAILY #30 tab 11/22/16 Nitroglycerin Sl Tabs [Nitrostat] 0.4 mg SUBLINGUAL Q5M PRN #25 tab 11/22/16 Allergies Allergy/AdvReac Type Severity Reaction Status Date / Time glyburide [From Diabeta] Allergy Rash/Hives Verified 12/24/16 17:46 Review of Systems ROS Statement: Those systems with pertinent positive or pertinent negative responses have been documented in the HPI. ROS Other: All systems not noted in ROS Statement are negative. Past Medical History Past Medical History: Diabetes Mellitus, Dialysis, Hyperlipidemia, Hypertension , Myocardial Infarction (MD), Renal Disease Additional Past Medical History / Comment(s): chronic renal failure stage V with dialysis 3 times a week-lt arm fistula, IDDM, pt states "per dialysis nurse who performed EKG and told pt she had an abnormal EKG and had had a MD in the past" but physician has never confirmed. NSTEMI 03/14/16, peripheral neuropathy bilateral feet cataracts bilaterally, UTI'S. Last Myocardial Infarction Date:: 06/07/2016 History of Any Multi-Drug Resistant Organisms: None Reported Past Surgical History: Appendectomy, Cholecystectomy, Heart Catheterization, Heart Catheterization With Stent Additional Past Surgical History / Comment(s): 03/15/16 PTCA with stent to mid LAD,06-07-16 HEART CATH STENT TO PROX RCA. Restented mid LAD 11/20/16 A/V fistula with revision L upper arm Past Anesthesia/Blood Transfusion Reactions: No Reported Reaction Date of Last Stent Placement:: 06/07/16 Past Psychological History: Depression Additional Psychological History / Comment(s): Pt resides with her son. She does not use any assistive device and she can drive. Smoking Status: Former smoker Past Alcohol Use History: None Reported Additional Past Alcohol Use History / Comment(s): Pt states she started smoking at age 21 (1965) and was a 5 cigarette a day smoker- she only smoked for about 6 months. Past Drug Use History: None Reported - Past Family History Father Family Medical History: Diabetes Mellitus Additional Family Medical History / Comment(s): Father of diabetic complications in his 40's Mother Family Medical History: Cancer, Myocardial Infarction (MD) Additional Family Medical History / Comment(s): Cancer unknown type. Mother of a MD in her early 50's General Exam Limitations: no limitations General appearance: alert, in no apparent distress Head exam: Present: atraumatic, normocephalic, normal inspection Eye exam: Present: normal appearance, PERRL, EOMI. Absent: scleral icterus, conjunctival injection, periorbital swelling ENT exam: Present: normal exam, mucous membranes moist Neck exam: Present: normal inspection. Absent: tenderness, meningismus, lymphadenopathy Respiratory exam: Present: normal lung sounds bilaterally. Absent: respiratory distress, wheezes, rales, rhonchi, stridor Cardiovascular Exam: Present: regular rate, normal rhythm, normal heart sounds. Absent: systolic murmur, diastolic murmur, rubs, gallop, clicks GI/Abdominal exam: Present: soft, normal bowel sounds. Absent: distended, tenderness, guarding, rebound, rigid Extremities exam: Present: normal inspection, full ROM, normal capillary refill. Absent: tenderness, pedal edema, joint swelling, calf tenderness Back exam: Present: normal inspection Neurological exam: Present: alert, oriented X3, CN II-XII intact Psychiatric exam: Present: normal affect, normal mood Skin exam: Present: warm, dry, intact, normal color. Absent: rash Course Vital Signs 04/21/17 04/21/17 04/21/17 03:49 06:13 06:30 Temperature 98.9 F 99.6 F 98.0 F Pulse Rate 86 85 Pulse Rate [ 82 Pulse Oximetery ] Respiratory 20 18 18 Rate Blood Pressure 170/75 172/73 Blood Pressure 163/72 [Right Arm] O2 Sat by Pulse 95 91 L 95 Oximetry EKG Findings - EKG Comments: EKG Findings:: EKG shows normal sinus rhythm rate of 80, UT 180, QRS 90, QTC 498 Medical Decision Making - Medical Decision Making 71-year-old female here for evaluation of chest pain. Strong history of heart disease and multiple medical comorbidities, positive chest pain, will admit patient here from ER to the hospital for cardiac observation, anticoagulation, initial troponin and EKG are negative - Lab Data Result diagrams: 04/25/17 05:00 04/25/17 05:00 Lab Results 04/21/17 04/21/17 04/21/17 Range/Units 04:14 04:14 04:14 WBC 7.9 (3.8-10.6) k/uL RBC 3.75 L (3.80-5.40) m/uL Hgb 11.0 L (11.4-16.0) gm/dL Hct 33.2 L (34.0-46.0) % MCV 88.7 (80.0-100.0) fL MCH 29.5 (25.0-35.0) pg MCHC 33.2 (31.0-37.0) g/dL RDW 15.7 H (11.5-15.5) % Plt Count 197 (150-450) k/uL Neutrophils % 75 % Lymphocytes % 10 % Monocytes % 5 % Eosinophils % 8 % Basophils % 0 % Neutrophils # 6.0 (1.3-7.7) k/uL Lymphocytes # 0.8 L (1.0-4.8) k/uL Monocytes # 0.4 (0-1.0) k/uL Eosinophils # 0.6 (0-0.7) k/uL Basophils # 0.0 (0-0.2) k/uL PT (9.0-12.0) sec INR (<1.1) APTT (22.0-30.0) sec Sodium 145 (137-145) mmol/L Potassium 5.1 (3.5-5.1) mmol/L Chloride 109 H (98-107) mmol/L Carbon Dioxide 21 L (22-30) mmol/L Anion Gap 15 mmol/L BUN 80 H* (7-17) mg/dL Creatinine 7.90 H* (0.52-1.04) mg/dL Est GFR (MDRD) Af Amer 6 (>60 ml/min/1.73 sqM) Est GFR (MDRD) Non-Af 5 (>60 ml/min/1.73 sqM) Glucose 73 L (74-99) mg/dL POC Glucose (mg/dL) (75-99) mg/dL POC Glu Editor Sound ID Estimated Ave Glu mg/dL mg/dL Hemoglobin A1c (4.2-6.1) % Calcium 8.7 (8.4-10.2) mg/dL Phosphorus (2.5-4.5) mg/dL Magnesium 2.8 H (1.6-2.3) mg/dL Total Bilirubin 0.3 (0.2-1.3) mg/dL AST 100 H (14-36) U/L ALT 91 H (9-52) U/L Alkaline Phosphatase 118 (38-126) U/L Total Creatine Kinase 62 (30-135) U/L CK-MB (CK-2) 1.5 (0.0-2.4) ng/mL CK-MB (CK-2) Rel Index 2.4 Troponin I 0.059 H* (0.000-0.034) ng/mL Total Protein 5.8 L (6.3-8.2) g/dL Albumin 3.3 L (3.5-5.0) g/dL Triglycerides (<150) mg/dL Cholesterol (<200) mg/dL LDL Cholesterol, Calc (0-99) mg/dL HDL Cholesterol (40-60) mg/dL Hep Bs Antigen 04/21/17 04/21/17 04/21/17 Range/Units 04:14 10:53 10:53 WBC (3.8-10.6) k/uL RBC (3.80-5.40) m/uL Hgb (11.4-16.0) gm/dL Hct (34.0-46.0) % MCV (80.0-100.0) fL MCH (25.0-35.0) pg MCHC (31.0-37.0) g/dL RDW (11.5-15.5) % Plt Count 183 (150-450) k/uL Neutrophils % % Lymphocytes % % Monocytes % % Eosinophils % % Basophils % % Neutrophils # (1.3-7.7) k/uL Lymphocytes # (1.0-4.8) k/uL Monocytes # (0-1.0) k/uL Eosinophils # (0-0.7) k/uL Basophils # (0-0.2) k/uL PT 10.2 (9.0-12.0) sec INR 1.0 (<1.1) APTT 21.8 L (22.0-30.0) sec Sodium (137-145) mmol/L Potassium (3.5-5.1) mmol/L Chloride (98-107) mmol/L Carbon Dioxide (22-30) mmol/L Anion Gap mmol/L BUN (7-17) mg/dL Creatinine (0.52-1.04) mg/dL Est GFR (MDRD) Af Amer (>60 ml/min/1.73 sqM) Est GFR (MDRD) Non-Af (>60 ml/min/1.73 sqM) Glucose (74-99) mg/dL POC Glucose (mg/dL) (75-99) mg/dL POC Glu Editor Sound ID Estimated Ave Glu mg/dL mg/dL Hemoglobin A1c (4.2-6.1) % Calcium (8.4-10.2) mg/dL Phosphorus (2.5-4.5) mg/dL Magnesium (1.6-2.3) mg/dL Total Bilirubin (0.2-1.3) mg/dL AST (14-36) U/L ALT (9-52) U/L Alkaline Phosphatase (38-126) U/L Total Creatine Kinase 109 (30-135) U/L CK-MB (CK-2) 8.5 H* (0.0-2.4) ng/mL CK-MB (CK-2) Rel Index 7.8 Troponin I 1.180 H* (0.000-0.034) ng/mL Total Protein (6.3-8.2) g/dL Albumin (3.5-5.0) g/dL Triglycerides (<150) mg/dL Cholesterol (<200) mg/dL LDL Cholesterol, Calc (0-99) mg/dL HDL Cholesterol (40-60) mg/dL Hep Bs Antigen 04/21/17 04/21/17 04/21/17 Range/Units 12:04 13:15 13:15 WBC 6.9 (3.8-10.6) k/uL RBC 3.48 L (3.80-5.40) m/uL Hgb 10.3 L (11.4-16.0) gm/dL Hct 32.4 L (34.0-46.0) % MCV 93.1 (80.0-100.0) fL MCH 29.6 (25.0-35.0) pg MCHC 31.8 (31.0-37.0) g/dL RDW 15.8 H (11.5-15.5) % Plt Count 179 (150-450) k/uL Neutrophils % 71 % Lymphocytes % 13 % Monocytes % 7 % Eosinophils % 6 % Basophils % 1 % Neutrophils # 4.9 (1.3-7.7) k/uL Lymphocytes # 0.9 L (1.0-4.8) k/uL Monocytes # 0.5 (0-1.0) k/uL Eosinophils # 0.4 (0-0.7) k/uL Basophils # 0.0 (0-0.2) k/uL PT 10.4 (9.0-12.0) sec INR 1.0 (<1.1) APTT 24.1 (22.0-30.0) sec Sodium (137-145) mmol/L Potassium (3.5-5.1) mmol/L Chloride (98-107) mmol/L Carbon Dioxide (22-30) mmol/L Anion Gap mmol/L BUN (7-17) mg/dL Creatinine (0.52-1.04) mg/dL Est GFR (MDRD) Af Amer (>60 ml/min/1.73 sqM) Est GFR (MDRD) Non-Af (>60 ml/min/1.73 sqM) Glucose (74-99) mg/dL POC Glucose (mg/dL) 68 L (75-99) mg/dL POC Glu Editor Sound Darshana Avendano Estimated Ave Glu mg/dL mg/dL Hemoglobin A1c (4.2-6.1) % Calcium (8.4-10.2) mg/dL Phosphorus (2.5-4.5) mg/dL Magnesium (1.6-2.3) mg/dL Total Bilirubin (0.2-1.3) mg/dL AST (14-36) U/L ALT (9-52) U/L Alkaline Phosphatase (38-126) U/L Total Creatine Kinase (30-135) U/L CK-MB (CK-2) (0.0-2.4) ng/mL CK-MB (CK-2) Rel Index Troponin I (0.000-0.034) ng/mL Total Protein (6.3-8.2) g/dL Albumin (3.5-5.0) g/dL Triglycerides (<150) mg/dL Cholesterol (<200) mg/dL LDL Cholesterol, Calc (0-99) mg/dL HDL Cholesterol (40-60) mg/dL Hep Bs Antigen 04/21/17 04/21/17 04/21/17 Range/Units 16:18 16:18 16:18 WBC (3.8-10.6) k/uL RBC (3.80-5.40) m/uL Hgb (11.4-16.0) gm/dL Hct (34.0-46.0) % MCV (80.0-100.0) fL MCH (25.0-35.0) pg MCHC (31.0-37.0) g/dL RDW (11.5-15.5) % Plt Count (150-450) k/uL Neutrophils % % Lymphocytes % % Monocytes % % Eosinophils % % Basophils % % Neutrophils # (1.3-7.7) k/uL Lymphocytes # (1.0-4.8) k/uL Monocytes # (0-1.0) k/uL Eosinophils # (0-0.7) k/uL Basophils # (0-0.2) k/uL PT (9.0-12.0) sec INR (<1.1) APTT (22.0-30.0) sec Sodium (137-145) mmol/L Potassium (3.5-5.1) mmol/L Chloride (98-107) mmol/L Carbon Dioxide (22-30) mmol/L Anion Gap mmol/L BUN (7-17) mg/dL Creatinine (0.52-1.04) mg/dL Est GFR (MDRD) Af Amer (>60 ml/min/1.73 sqM) Est GFR (MDRD) Non-Af (>60 ml/min/1.73 sqM) Glucose (74-99) mg/dL POC Glucose (mg/dL) (75-99) mg/dL POC Glu Editor Sound ID Estimated Ave Glu mg/dL 249 mg/dL Hemoglobin A1c 10.3 H (4.2-6.1) % Calcium (8.4-10.2) mg/dL Phosphorus (2.5-4.5) mg/dL Magnesium (1.6-2.3) mg/dL Total Bilirubin (0.2-1.3) mg/dL AST (14-36) U/L ALT (9-52) U/L Alkaline Phosphatase (38-126) U/L Total Creatine Kinase 156 H (30-135) U/L CK-MB (CK-2) 13.5 H* (0.0-2.4) ng/mL CK-MB (CK-2) Rel Index 8.7 Troponin I 3.570 H* (0.000-0.034) ng/mL Total Protein (6.3-8.2) g/dL Albumin (3.5-5.0) g/dL Triglycerides (<150) mg/dL Cholesterol (<200) mg/dL LDL Cholesterol, Calc (0-99) mg/dL HDL Cholesterol (40-60) mg/dL Hep Bs Antigen Negative 04/21/17 04/21/17 04/21/17 Range/Units 17:00 19:04 20:39 WBC (3.8-10.6) k/uL RBC (3.80-5.40) m/uL Hgb (11.4-16.0) gm/dL Hct (34.0-46.0) % MCV (80.0-100.0) fL MCH (25.0-35.0) pg MCHC (31.0-37.0) g/dL RDW (11.5-15.5) % Plt Count (150-450) k/uL Neutrophils % % Lymphocytes % % Monocytes % % Eosinophils % % Basophils % % Neutrophils # (1.3-7.7) k/uL Lymphocytes # (1.0-4.8) k/uL Monocytes # (0-1.0) k/uL Eosinophils # (0-0.7) k/uL Basophils # (0-0.2) k/uL PT (9.0-12.0) sec INR (<1.1) APTT 144.7 H* (22.0-30.0) sec Sodium (137-145) mmol/L Potassium (3.5-5.1) mmol/L Chloride (98-107) mmol/L Carbon Dioxide (22-30) mmol/L Anion Gap mmol/L BUN (7-17) mg/dL Creatinine (0.52-1.04) mg/dL Est GFR (MDRD) Af Amer (>60 ml/min/1.73 sqM) Est GFR (MDRD) Non-Af (>60 ml/min/1.73 sqM) Glucose (74-99) mg/dL POC Glucose (mg/dL) 70 L 76 (75-99) mg/dL POC Glu Editor Sound Darshana Avendano Suzanne Estimated [address] Glu mg/dL mg/dL Hemoglobin A1c (4.2-6.1) % Calcium (8.4-10.2) mg/dL Phosphorus (2.5-4.5) mg/dL Magnesium (1.6-2.3) mg/dL Total Bilirubin (0.2-1.3) mg/dL AST (14-36) U/L ALT (9-52) U/L Alkaline Phosphatase (38-126) U/L Total Creatine Kinase (30-135) U/L CK-MB (CK-2) (0.0-2.4) ng/mL CK-MB (CK-2) Rel Index Troponin I (0.000-0.034) ng/mL Total Protein (6.3-8.2) g/dL Albumin (3.5-5.0) g/dL Triglycerides (<150) mg/dL Cholesterol (<200) mg/dL LDL Cholesterol, Calc (0-99) mg/dL HDL Cholesterol (40-60) mg/dL Hep Bs Antigen 04/22/17 04/22/17 04/22/17 Range/Units 02:01 02:01 02:01 WBC 7.0 (3.8-10.6) k/uL RBC 3.46 L (3.80-5.40) m/uL Hgb 10.2 L (11.4-16.0) gm/dL Hct 31.4 L (34.0-46.0) % MCV 90.9 (80.0-100.0) fL MCH 29.6 (25.0-35.0) pg MCHC 32.6 (31.0-37.0) g/dL RDW 16.0 H (11.5-15.5) % Plt Count 159 (150-450) k/uL Neutrophils % 62 % Lymphocytes % 18 % Monocytes % 8 % Eosinophils % 8 % Basophils % 1 % Neutrophils # 4.3 (1.3-7.7) k/uL Lymphocytes # 1.3 (1.0-4.8) k/uL Monocytes # 0.6 (0-1.0) k/uL Eosinophils # 0.6 (0-0.7) k/uL Basophils # 0.0 (0-0.2) k/uL PT (9.0-12.0) sec INR (<1.1) APTT 31.0 H (22.0-30.0) sec Sodium 134 L (137-145) mmol/L Potassium 4.3 (3.5-5.1) mmol/L Chloride 102 (98-107) mmol/L Carbon Dioxide 25 (22-30) mmol/L Anion Gap 7 mmol/L BUN 38 H (7-17) mg/dL Creatinine 4.30 H (0.52-1.04) mg/dL Est GFR (MDRD) Af Amer 12 (>60 ml/min/1.73 sqM) Est GFR (MDRD) Non-Af 10 (>60 ml/min/1.73 sqM) Glucose 84 (74-99) mg/dL POC Glucose (mg/dL) (75-99) mg/dL POC Glu Editor Sound ID Estimated Ave Glu mg/dL mg/dL Hemoglobin A1c (4.2-6.1) % Calcium 8.5 (8.4-10.2) mg/dL Phosphorus (2.5-4.5) mg/dL Magnesium (1.6-2.3) mg/dL Total Bilirubin (0.2-1.3) mg/dL AST (14-36) U/L ALT (9-52) U/L Alkaline Phosphatase (38-126) U/L Total Creatine Kinase (30-135) U/L CK-MB (CK-2) (0.0-2.4) ng/mL CK-MB (CK-2) Rel Index Troponin I (0.000-0.034) ng/mL Total Protein (6.3-8.2) g/dL Albumin (3.5-5.0) g/dL Triglycerides 75 (<150) mg/dL Cholesterol 100 (<200) mg/dL LDL Cholesterol, Calc 41 (0-99) mg/dL HDL Cholesterol 44 (40-60) mg/dL Hep Bs Antigen 04/22/17 04/22/17 04/22/17 Range/Units 02:20 06:50 07:29 WBC (3.8-10.6) k/uL RBC (3.80-5.40) m/uL Hgb (11.4-16.0) gm/dL Hct (34.0-46.0) % MCV (80.0-100.0) fL MCH (25.0-35.0) pg MCHC (31.0-37.0) g/dL RDW (11.5-15.5) % Plt Count (150-450) k/uL Neutrophils % % Lymphocytes % % Monocytes % % Eosinophils % % Basophils % % Neutrophils # (1.3-7.7) k/uL Lymphocytes # (1.0-4.8) k/uL Monocytes # (0-1.0) k/uL Eosinophils # (0-0.7) k/uL Basophils # (0-0.2) k/uL PT (9.0-12.0) sec INR (<1.1) APTT 42.0 H (22.0-30.0) sec Sodium (137-145) mmol/L Potassium (3.5-5.1) mmol/L Chloride (98-107) mmol/L Carbon Dioxide (22-30) mmol/L Anion Gap mmol/L BUN (7-17) mg/dL Creatinine (0.52-1.04) mg/dL Est GFR (MDRD) Af Amer (>60 ml/min/1.73 sqM) Est GFR (MDRD) Non-Af (>60 ml/min/1.73 sqM) Glucose (74-99) mg/dL POC Glucose (mg/dL) 69 L (75-99) mg/dL POC Glu Editor Sound Pat Frazier Estimated Ave Glu mg/dL mg/dL Hemoglobin A1c (4.2-6.1) % Calcium (8.4-10.2) mg/dL Phosphorus 4.7 H (2.5-4.5) mg/dL Magnesium (1.6-2.3) mg/dL Total Bilirubin (0.2-1.3) mg/dL AST (14-36) U/L ALT (9-52) U/L Alkaline Phosphatase (38-126) U/L Total Creatine Kinase (30-135) U/L CK-MB (CK-2) (0.0-2.4) ng/mL CK-MB (CK-2) Rel Index Troponin I (0.000-0.034) ng/mL Total Protein (6.3-8.2) g/dL Albumin (3.5-5.0) g/dL Triglycerides (<150) mg/dL Cholesterol (<200) mg/dL LDL Cholesterol, Calc (0-99) mg/dL HDL Cholesterol (40-60) mg/dL Hep Bs Antigen 04/22/17 04/22/17 Range/Units 12:03 14:54 WBC (3.8-10.6) k/uL RBC (3.80-5.40) m/uL Hgb (11.4-16.0) gm/dL Hct (34.0-46.0) % MCV (80.0-100.0) fL MCH (25.0-35.0) pg MCHC (31.0-37.0) g/dL RDW (11.5-15.5) % Plt Count (150-450) k/uL Neutrophils % % Lymphocytes % % Monocytes % % Eosinophils % % Basophils % % Neutrophils # (1.3-7.7) k/uL Lymphocytes # (1.0-4.8) k/uL Monocytes # (0-1.0) k/uL Eosinophils # (0-0.7) k/uL Basophils # (0-0.2) k/uL PT (9.0-12.0) sec INR (<1.1) APTT 61.7 H (22.0-30.0) sec Sodium (137-145) mmol/L Potassium (3.5-5.1) mmol/L Chloride (98-107) mmol/L Carbon Dioxide (22-30) mmol/L Anion Gap mmol/L BUN (7-17) mg/dL Creatinine (0.52-1.04) mg/dL Est GFR (MDRD) Af Amer (>60 ml/min/1.73 sqM) Est GFR (MDRD) Non-Af (>60 ml/min/1.73 sqM) Glucose (74-99) mg/dL POC Glucose (mg/dL) 229 H (75-99) mg/dL POC Glu Editor Sound ID Tyler Jiménez Estimated Ave Glu mg/dL mg/dL Hemoglobin A1c (4.2-6.1) % Calcium (8.4-10.2) mg/dL Phosphorus (2.5-4.5) mg/dL Magnesium (1.6-2.3) mg/dL Total Bilirubin (0.2-1.3) mg/dL AST (14-36) U/L ALT (9-52) U/L Alkaline Phosphatase (38-126) U/L Total Creatine Kinase (30-135) U/L CK-MB (CK-2) (0.0-2.4) ng/mL CK-MB (CK-2) Rel Index Troponin I (0.000-0.034) ng/mL Total Protein (6.3-8.2) g/dL Albumin (3.5-5.0) g/dL Triglycerides (<150) mg/dL Cholesterol (<200) mg/dL LDL Cholesterol, Calc (0-99) mg/dL HDL Cholesterol (40-60) mg/dL Hep Bs Antigen - Radiology Data Radiology results: report reviewed (Chest x-ray is negative for acute disease), image reviewed Critical Care Time Critical Care Time: Yes Total Critical Care Time: 31 Disposition Clinical Impression: Chest pain Disposition: ADMITTED IP TO THIS [facility] Condition: Undetermined
[2017-04-21 04:27] LABS: Basophils % (A) 0 %; CH 29.2; CHCM 33.1; Eosinophils # (A) 0.6 k/uL (0-0.7); Eosinophils % (A) 8 %; HCT 33.2 % (34.0-46.0); HDW 2.48; Luc # (Auto) 0.15; Luc % (Auto) 2; Lymphocytes # (A) 0.8 k/uL (1.0-4.8); Lymphocytes % (A) 10 %; MCH 29.5 pg (25.0-35.0); MCHC 33.2 g/dL (31.0-37.0); MCV 88.7 fL (80.0-100.0); Mean Platelet Volume 7.4; Monocytes # (A) 0.4 k/uL (0-1.0); Monocytes % (A) 5 %; Neutrophils % (A) 75 %; RBC 3.75 m/uL (3.80-5.40); RDW 15.7 % (11.5-15.5); WBC 7.9 k/uL (3.8-10.6); WBC (Perox) 8.09
[2017-04-21 04:38] LABS: Prothrombin Time 10.2 sec (9.0-12.0)
--- NOTE | 2017-04-21 04:47 | XR ---
EXAM: XR Chest, 2 Views CLINICAL HISTORY: Reason: Chest Pain TECHNIQUE: Frontal and lateral views of the chest. COMPARISON: 12/24/16. FINDINGS: Lungs: Pulmonary vascular congestion with trace pleural effusions. Pleural space: See above. No pneumothorax. Heart: Stable. Mediastinum: Unremarkable. Bones/joints: Unremarkable. IMPRESSION: Pulmonary vascular congestion with trace pleural effusions. Correlate clinically for CHF.
[2017-04-21 04:48] LABS: Calcium 8.7 mg/dL (8.4-10.2); Magnesium 2.8 mg/dL (1.6-2.3); Potassium 5.1 mmol/L (3.5-5.1); Total Bilirubin 0.3 mg/dL (0.2-1.3); Total Protein 5.8 g/dL (6.3-8.2)
[2017-04-21 05:07] LABS: Creatine Kinase MB 1.5 ng/mL (0.0-2.4)
[2017-04-21 05:09] LABS: Troponin I 0.059 ng/mL (0.000-0.034)
[2017-04-21 05:10] LABS: Partial Thromboplastin Time 21.8 sec (22.0-30.0)
[2017-04-21] MEDS ORDERED: HEPARIN SODIUM,PORCINE 5,000 UNIT/ML 1 ML VIAL IV ONE (05:18)
[2017-04-21] MEDS ORDERED: NITROGLYCERIN SL TABS 0.4 MG TAB SUBLINGUAL PRN ×2 (05:18→07:36)
[2017-04-21] MEDS ORDERED: ASPIRIN 81 MG CHEW PO STA (05:18)
[2017-04-21] MEDS ORDERED: HEPARIN SODIUM,PORCINE 5,000 UNIT/ML 1 ML VIAL IV PRN ×2 (05:18→12:44)
[2017-04-21] MEDS ORDERED: HEPARIN SODIUM,PORCINE/D5W PMX 25,000 UNIT in DEXTROSE/WATER 1 500ML.BAG IV SCH (05:30)
[2017-04-21] MEDS ORDERED: DARBEPOETIN ALFA 40 MCG/0.4 ML SYRINGE SQ SCH (07:45)
[2017-04-21] MEDS ORDERED: FUROSEMIDE 40 MG TAB PO SCH (08:00)
[2017-04-21] MEDS ORDERED: hydrALAZINE HCL 25 MG TAB PO SCH (09:00)
--- NOTE | 2017-04-21 09:46 | CONS ---
DATE OF CONSULTATION: CHIEF COMPLAINT: Chest pain Margarita Bloom is a 71-year-old lady with a history of end-stage renal disease on hemodialysis, insulin-requiring diabetes, coronary artery disease, status post angioplasty, and hypertension who presented to hospital complaining of chest pain. She describes it as a chest tightness in the precordial area without definite radiation to neck, arm or back. These symptoms started for about 3 hours prior to admission. Since being admitted to hospital she is doing well and is free of chest pain. She has had one set of troponin that is elevated at 0.059, which is probably related to her renal failure. Patient has had a cardiac catheterization in December of this year that revealed patent stents. Rhythm strip shows that she is in sinus rhythm. EKG shows sinus rhythm with nonspecific ST-T wave changes. BUN and creatinine are elevated at 80 and 7.9. Past medical history is significant for coronary artery disease, status post angioplasty, hypertension, dyslipidemia, diabetes, end-stage renal disease on hemodialysis. Current medications include Lasix 40 b.i.d., Antivert, lisinopril 10 q. daily, Imdur 30 q. daily, insulin, Nephrocaps, Plavix 75 q. daily, Celexa, Coreg, PhosLo, Lipitor and aspirin. Allergic to DIABETA. Family history is negative for premature coronary artery disease. Social history is negative for smoking, EtOH abuse, or drug abuse. REVIEW OF SYSTEMS: HEENT is unremarkable. CARDIAC: As described above. RESPIRATORY: Negative. GI: Negative. GENITOURINARY: Negative. ALLERGY/IMMUNOLOGY: Negative. SKIN: Negative. MUSCULOSKELETAL: Significant for arthritis. PSYCHOSOCIAL: Negative. ENDOCRINE: Negative. NEUROLOGIC: Negative. CONSTITUTIONAL: Negative. ONCOLOGICAL: Negative. RENAL: Significant for end-stage renal disease. On exam, comfortable at rest. Blood pressure is elevated at 151/70, respiratory rate is 18. There is no jugular venous distention. Carotid upstroke is normal. Chest exam reveals good air entry bilaterally. Heart exam reveals first and second heart sounds. Systolic murmur at the apex. Abdomen is soft. Exam of extremities did not reveal edema. Peripheral pulses are felt. Labs show that the troponin is mildly elevated. Potassium is 5.1. Hemoglobin is 11. ASSESSMENT: 1. Precordial chest pain, probably related to his end-stage renal disease and missing dialysis. 2. End-stage renal disease on hemodialysis. 3. Coronary artery disease, status post prior angioplasty. PLAN: Patient had a cardiac catheterization in December that showed patent stents. I do not see the need to do any further invasive work-up on her at this stage. Please dialyze her and when stable, we can discharge her home and if necessary consider an outpatient stress test on her. Thank you for allowing us to participate in the care of this pleasant lady. I will continue to follow with interest through this hospitalization.
[2017-04-21] MEDS: CLOPIDOGREL 75 MG TAB PO SCH (10:28)
[2017-04-21] MEDS: ASPIRIN 325 MG TAB PO SCH (10:29)
[2017-04-21] MEDS: CITALOPRAM HYDROBROMIDE 20 MG TAB PO SCH (10:30)
[2017-04-21] MEDS: MECLIZINE 25 MG TAB PO SCH ×2 (10:30→21:59)
[2017-04-21] MEDS: FERROUS SULFATE 325 MG TAB PO SCH ×2 (10:30→21:59)
[2017-04-21] MEDS: FOLIC ACID-VIT B COMPLEX-VIT C 1 CAP PO SCH (10:31)
[2017-04-21] MEDS: INSULIN GLARGINE 100 UNIT/ML 10 ML VIAL SQ SCH (10:42)
[2017-04-21 11:26] LABS: Mean Platelet Volume 7.6
--- NOTE | 2017-04-21 11:26 | P.HPIM ---
History of Present Illness H&P Date: 04/21/17 Chief Complaint: Chest pain Patient is a 71-year-old female with complex medical history significant for end -stage renal disease on hemodialysis, coronary artery disease status post stent placement 3 with stents, hypertension, hyperlipidemia, diabetes mellitus, anemia of chronic disease, diabetic peripheral neuropathy, and chronic diastolic congestive heart failure. Patient presented to the hospital with complaints of chest pain that started when patient was lying in bed associated with shortness of breath. Onset of symptoms 3 hours prior to arrival. Patient reports that she missed dialysis on Monday and first day of last week secondary to diarrhea that lasted 3 hours on . No history of fevers, sick contacts, nausea,, vomiting, or abdominal pain. EKG in the emergency department with evidence of normal sinus rhythm and nonspecific ST and T-wave abnormalities. Chest x-ray with evidence congestive heart failure with trace pleural effusions. WBC 7.9, hemoglobin 11, BUN 80, creatinine 7.9, AST 100, ALT 91, troponin 0.059. Patient was admitted to the selective care unit with consult to cardiology and nephrology. Patient has been evaluated by cardiology with no plans for any further workup as patient had a cardiac catheterization in December that showed patent stents. Patient is currently awaiting nephrology recommendations. Past Medical History Past Medical History: Diabetes Mellitus, Dialysis, Hyperlipidemia, Hypertension , Myocardial Infarction (MT), Renal Disease Additional Past Medical History / Comment(s): chronic renal failure stage V with dialysis 3 times a week-lt arm fistula, IDDM, pt states "per dialysis nurse who performed EKG and told pt she had an abnormal EKG and had had a MT in the past" but physician has never confirmed. NSTEMI 03/14/16, peripheral neuropathy bilateral feet cataracts bilaterally, UTI'S. Last Myocardial Infarction Date:: 06/07/2016 History of Any Multi-Drug Resistant Organisms: None Reported Past Surgical History: Appendectomy, Cholecystectomy, Heart Catheterization, Heart Catheterization With Stent Additional Past Surgical History / Comment(s): 03/15/16 PTCA with stent to mid LAD,06-07-16 HEART CATH STENT TO PROX RCA. Restented mid LAD 11/20/16 A/V fistula with revision L upper arm Past Anesthesia/Blood Transfusion Reactions: No Reported Reaction Date of Last Stent Placement:: 06/07/16 Past Psychological History: Depression Additional Psychological History / Comment(s): Pt resides with her son. She does not use any assistive device and she can drive. Smoking Status: Never smoker Past Alcohol Use History: None Reported Additional Past Alcohol Use History / Comment(s): Pt states she started smoking at age 21 (1965) and was a 5 cigarette a day smoker- she only smoked for about 6 months. Past Drug Use History: None Reported - Past Family History Father Family Medical History: Diabetes Mellitus Additional Family Medical History / Comment(s): Father of diabetic complications in his 40's Mother Family Medical History: Cancer, Myocardial Infarction (MT) Additional Family Medical History / Comment(s): Cancer unknown type. Mother of a MT in her early 50's Medications and Allergies Home Medications Medication Instructions Recorded Confirmed Type Cholecalciferol [Vitamin D3] 1,000 unit PO DAILY 03/13/16 04/21/17 History Ferrous Sulfate [Iron (65 MG 325 mg PO BID 03/13/16 04/21/17 History Elemental)] Insulin Glargine [Lantus] 30 unit SQ QAM 03/13/16 04/21/17 History Calcium Acetate [Phoslo] 1,334 mg PO AC-TID 03/14/16 04/21/17 History Insulin Aspart [NovoLOG] See Protocol SQ AC-TID 03/14/16 04/21/17 History Cyanocobalamin [Vitamin B-12] 1,000 mcg PO DAILY 06/06/16 04/21/17 History Folic Acid-Vit B Complex-Vit C 1 cap PO DAILY 06/06/16 04/21/17 History [Nephrocaps] Citalopram Hydrobromide [CeleXA] 20 mg PO DAILY 08/05/16 04/21/17 History Isosorbide Mononitrate ER [Imdur] 30 mg PO DAILY 11/19/16 04/21/17 History Magnebind 300 1 tab PO AC-BID 11/19/16 04/21/17 History Furosemide [Lasix] 40 mg PO BID 04/21/17 04/21/17 History Lisinopril [Zestril] 10 mg PO DAILY 04/21/17 04/21/17 History Meclizine [Antivert] 25 mg PO BID 04/21/17 04/21/17 History Allergies Allergy/AdvReac Type Severity Reaction Status Date / Time glyburide [From Diabeta] Allergy Rash/Hives Verified 12/24/16 17:46 Physical Exam Vitals: Vital Signs Temp Pulse Pulse Resp BP BP Pulse Ox 04/21/17 08:22 97.7 F 74 20 151/67 97 04/21/17 06:30 98.0 F 85 18 172/73 95 04/21/17 06:13 99.6 F 82 18 163/72 91 L 04/21/17 03:49 98.9 F 86 20 170/75 95 Intake and Output 04/20/17 04/21/17 04/21/17 22:59 06:59 14:59 Intake Total 259.667 Output Total 250 Balance 9.667 Intake: Intake, IV Titration 79.667 Amount Heparin Sodium,Porcine/ 79.667 D5w Pmx 25,000 unit In Dextrose/Water 1 500ml. bag @ 12 UNITS/KG/HR 20. 13 mls/hr IV .Q24H [facility] Rx #:[id number] Oral 180 Output: Urine 250 Other: Weight 85.5 kg GENERAL: Pt awake and alert, well-appearing, well-nourished, and in no acute distress. HEAD: Atraumatic, normocephalic. EYES: Pupils equal and round. Sclera anicteric, conjunctiva are normal. ENT: Moist mucous membranes. NECK:Supple without lymphadenopathy or JVD. LUNGS: Breath sounds diminished. No wheezes, rales, or rhonchi. HEART: Heart S1, S2, no S3 or S4. Regular rate and rhythm. Systolic murmur. ABDOMEN: Soft, obese, nontender, nondistended, normoactive bowel sounds. No guarding, no rebound. EXTREMITIES: Pulses palpable bilaterally. Trace peripheral edema to bilateral lower extremities. No calf tenderness. NEUROLOGICAL: Pt oriented x 3. No focal deficits. Strength and sensation grossly intact. PSYCH: Normal mood, normal affect. SKIN: Warm, dry. No rashes or lesions noted. Results CBC & Chem 7: 04/21/17 04:14 04/21/17 04:14 Labs: Abnormal Lab Results - Last 24 Hours (Table) 04/21/17 04/21/17 04/21/17 Range/Units 04:14 04:14 04:14 RBC 3.75 L (3.80-5.40) m/uL Hgb 11.0 L (11.4-16.0) gm/dL Hct 33.2 L (34.0-46.0) % RDW 15.7 H (11.5-15.5) % Lymphocytes # 0.8 L (1.0-4.8) k/uL APTT (22.0-30.0) sec Chloride 109 H (98-107) mmol/L Carbon Dioxide 21 L (22-30) mmol/L BUN 80 H* (7-17) mg/dL Creatinine 7.90 H* (0.52-1.04) mg/dL Glucose 73 L (74-99) mg/dL Magnesium 2.8 H (1.6-2.3) mg/dL AST 100 H (14-36) U/L ALT 91 H (9-52) U/L Troponin I 0.059 H* (0.000-0.034) ng/mL Total Protein 5.8 L (6.3-8.2) g/dL Albumin 3.3 L (3.5-5.0) g/dL /01/06 Range/Units 04:14 RBC (3.80-5.40) m/uL Hgb (11.4-16.0) gm/dL Hct (34.0-46.0) % RDW (11.5-15.5) % Lymphocytes # (1.0-4.8) k/uL APTT 21.8 L (22.0-30.0) sec Chloride (98-107) mmol/L Carbon Dioxide (22-30) mmol/L BUN (7-17) mg/dL Creatinine (0.52-1.04) mg/dL Glucose (74-99) mg/dL Magnesium (1.6-2.3) mg/dL AST (14-36) U/L ALT (9-52) U/L Troponin I (0.000-0.034) ng/mL Total Protein (6.3-8.2) g/dL Albumin (3.5-5.0) g/dL Chest x-ray: report reviewed Thrombosis Risk Factor Assmnt - DVT/VTE Prophylaxis DVT/VTE Prophylaxis: Mechanical Prophylaxis ordered - Choose All That Apply Each Factor Represents 1 point: Obesity (BMI >25) Each Risk Factor Represents 2 Points: Age 61-74 years Thrombosis Risk Factor Assessment Total Risk Factor Score: 3 Thrombosis Risk Factor Assessment Level: Moderate Risk Assessment and Plan Plan: Impression: 1. Chest pain, suspect secondary to end-stage renal disease and missing dialysis. Cardiology has evaluated patient and has no plans for any further invasive workup at this time. Patient had a cardiac catheterization in December that showed patent stents. Possibly consider outpatient stress test if necessary. 2. Acute on chronic congestive heart failure with diastolic dysfunction; preserved left ventricular systolic function with an EF between 50-55%. 3. Elevated liver enzymes, present on admission, suspect secondary to fluid overload, present on admission. 4. Elevated troponin, present on admission. 5. End-stage renal disease on hemodialysis Monday, , and Monday. 6. Hypertension. 7. Hyperlipidemia. 8. Insulin-dependent diabetes mellitus type 2. 9. Coronary artery disease. 10. Anemia of chronic disease. 12. Diabetic peripheral neuropathy. 13. History of bilateral cataracts. 14. History of mild pulmonary hypertension. Plan: Continue to monitor patient. Continue supplemental oxygen to keep oxygen saturation greater than 92%. Continue current medications. Await nephrology recommendations for hemodialysis. Repeat CBC and BMP in a.m. Possibly home in 24 hours. The above impression and plan have been discussed and directed by Dr. Malone. Maureen BRANCH acting as scribe for Dr. Malone.
[2017-04-21 12:14] LABS: Glucose,Whole Blood 68 mg/dL (75-99)
[2017-04-21] MEDS: INSULIN LISPRO (humaLOG) 300 UNIT/3 ML VIAL SQ SCH ×3 (12:26→21:53)
[2017-04-21 12:28] LABS: Creatine Kinase MB 8.5 ng/mL (0.0-2.4)
[2017-04-21 12:29] LABS: Troponin I 1.18 ng/mL (0.000-0.034)
[2017-04-21] MEDS ORDERED: INSULIN LISPRO (humaLOG) 300 UNIT/3 ML VIAL SQ SCH (12:30)
[2017-04-21] MEDS: CHOLECALCIFEROL 1,000 UNIT TAB PO SCH (12:34)
[2017-04-21] MEDS: CALCIUM ACETATE 667 MG CAP PO SCH ×2 (12:34→18:06)
[2017-04-21] MEDS: CYANOCOBALAMIN 500 MCG TAB PO SCH (12:35)
[2017-04-21] MEDS: HEPARIN SODIUM,PORCINE/D5W PMX 25,000 UNIT in DEXTROSE/WATER 1 500ML.BAG IV SCH (13:11)
[2017-04-21 14:06] LABS: Basophils % (A) 1 %; CH 29.1; CHCM 31.4; Eosinophils # (A) 0.4 k/uL (0-0.7); Eosinophils % (A) 6 %; HCT 32.4 % (34.0-46.0); HDW 2.32; HGB 10.3 gm/dL (11.4-16.0); Luc % (Auto) 3; Lymphocytes # (A) 0.9 k/uL (1.0-4.8); Lymphocytes % (A) 13 %; MCH 29.6 pg (25.0-35.0); MCHC 31.8 g/dL (31.0-37.0); MCV 93.1 fL (80.0-100.0); Mean Platelet Volume 7.5; Monocytes # (A) 0.5 k/uL (0-1.0); Monocytes % (A) 7 %; Neutrophils # (A) 4.9 k/uL (1.3-7.7); Neutrophils % (A) 71 %; RBC 3.48 m/uL (3.80-5.40); RDW 15.8 % (11.5-15.5); WBC 6.9 k/uL (3.8-10.6); WBC (Perox) 6.93
[2017-04-21 14:10] LABS: Partial Thromboplastin Time 24.1 sec (22.0-30.0); Prothrombin Time 10.4 sec (9.0-12.0)
[2017-04-21 17:05] LABS: Creatine Kinase MB 13.5 ng/mL (0.0-2.4); Troponin I 3.57 ng/mL (0.000-0.034)
[2017-04-21 17:20] LABS: Glucose,Whole Blood 70 mg/dL (75-99)
[2017-04-21 17:48] LABS: Hepatitis B Surface Ag Index 0.07
[2017-04-21] MEDS: FUROSEMIDE 40 MG TAB PO SCH (17:56)
--- NOTE | 2017-04-21 18:05 | CONS ---
DATE OF CONSULTATION: 04/21/2017 REASON FOR CONSULTATION: End-stage renal disease. HISTORY OF PRESENT ILLNESS: Patient is a 71-year-old female with history of end-stage renal disease, on hemodialysis on a Monday, , Monday schedule via left arm AV fistula. Patient was admitted to the hospital with complaints of chest pain. She has actually not had dialysis this week. She missed Monday and . Recently patient had cardiac catheterization and coronary stent placement in December of 2016. She is currently being evaluated by Cardiology. Troponins did turnaround planner to be positive, going up from 0.05 to 3.57. Patient will be scheduled for hemodialysis today. PAST MEDICAL HISTORY: 1. End-stage renal disease. 2. Anemia of chronic disease. 3. CKD bone mineral disorder. 4. Coronary artery disease. 5. Peripheral neuropathy. 6. Hyperlipidemia. PAST SURGICAL HISTORY: 1. Appendectomy. 2. Left arm AV fistula. 3. Coronary stent placement. 4. Heart catheterization. Medications at home included: 1. Vitamin D. 2. Iron. 3. Insulin. 4. PhosLo. 5. Vitamin B. 6. Nephrocaps. 7. Lasix. 8. MagneBind. 9. Zestril. 10. Antivert. 11. Imdur. 12. Celexa. ALLERGIES include DIABETA. SOCIAL HISTORY: Negative for smoking, drug abuse or alcohol abuse. REVIEW OF SYSTEMS: As per HPI. Other systems negative. No complaints of fever, chills, shortness of breath. No significant nausea or vomiting. On examination, patient is comfortable, awake, alert, oriented x3, not in any acute distress. Blood pressure is 122/63, heart rate 71 per minute. She is afebrile. EXAMINATION OF THE HEART: S1 and S2. EXAMINATION OF THE LUNGS: Bilateral breath sounds are heard. ABDOMEN: Soft, nontender. Examination of lower extremities shows edema 1+ bilaterally. MASTER CARPENTER exam is grossly intact. Patient is moving all 4 extremities. Labs show hemoglobin 10.3. Potassium from yesterday was 5.1. Troponin, as mentioned, up to 3.5. ASSESSMENT: 1. End-stage renal disease, on hemodialysis on a Monday, , Monday schedule. Patient will be dialyzed today and then again tomorrow, which is her regular day. 2. Mild volume overload. Will try for about 3.5 liters today. 3. Chest pain with elevated troponins. Patient ruled in for [id number] myocardial infarction. She is being seen by Cardiology and is on IV heparin. 4. Hypertension, maintained on DAMIEN inhibitors. 5. Chronic kidney disease bone mineral disorder, currently on PhosLo. 6. Coronary artery disease with previous cardiac catheterization and coronary stent placement in December. PLAN: Hemodialysis today as well as in a.m. Okay to proceed with cardiac catheterization if Cardiology is planning.
[2017-04-21] MEDS: CARVEDILOL 12.5 MG TAB PO SCH (18:07)
[2017-04-21] MEDS: MAGNESIUM OXIDE 400 MG TAB PO SCH (18:08)
[2017-04-21] MEDS: ISOSORBIDE MONONITRATE ER 30 MG TAB.ER.24H PO SCH (18:08)
[2017-04-21 20:44] LABS: Glucose,Whole Blood 76 mg/dL (75-99)
[2017-04-21] MEDS: ATORVASTATIN 80 MG TAB PO SCH (21:59)
[2017-04-22 02:34] LABS: Basophils % (A) 1 %; CH 29.5; CHCM 32.6; Eosinophils # (A) 0.6 k/uL (0-0.7); Eosinophils % (A) 8 %; HCT 31.4 % (34.0-46.0); HDW 2.35; HGB 10.2 gm/dL (11.4-16.0); Luc # (Auto) 0.24; Luc % (Auto) 3; Lymphocytes # (A) 1.3 k/uL (1.0-4.8); Lymphocytes % (A) 18 %; MCH 29.6 pg (25.0-35.0); MCHC 32.6 g/dL (31.0-37.0); MCV 90.9 fL (80.0-100.0); Mean Platelet Volume 7.5; Monocytes # (A) 0.6 k/uL (0-1.0); Monocytes % (A) 8 %; Neutrophils # (A) 4.3 k/uL (1.3-7.7); Neutrophils % (A) 62 %; RBC 3.46 m/uL (3.80-5.40); WBC (Perox) 7.18
[2017-04-22 02:57] LABS: Calcium 8.5 mg/dL (8.4-10.2); Potassium 4.3 mmol/L (3.5-5.1)
[2017-04-22] MEDS: LISINOPRIL 10 MG TAB PO SCH ×2 (03:08→08:49)
[2017-04-22] MEDS: MAGNESIUM OXIDE 400 MG TAB PO SCH ×2 (06:52→17:23)
[2017-04-22] MEDS: CALCIUM ACETATE 667 MG CAP PO SCH ×3 (06:52→17:22)
[2017-04-22] MEDS: INSULIN LISPRO (humaLOG) 300 UNIT/3 ML VIAL SQ SCH ×4 (06:53→22:31)
[2017-04-22 06:55] LABS: Glucose,Whole Blood 69 mg/dL (75-99)
[2017-04-22] MEDS: FERROUS SULFATE 325 MG TAB PO SCH ×2 (08:49→20:35)
[2017-04-22] MEDS: FUROSEMIDE 40 MG TAB PO SCH ×2 (08:49→17:23)
[2017-04-22] MEDS: MECLIZINE 25 MG TAB PO SCH ×2 (08:49→20:35)
[2017-04-22] MEDS: CLOPIDOGREL 75 MG TAB PO SCH (08:49)
[2017-04-22] MEDS: INSULIN GLARGINE 100 UNIT/ML 10 ML VIAL SQ SCH (08:49)
[2017-04-22] MEDS: CITALOPRAM HYDROBROMIDE 20 MG TAB PO SCH (08:50)
[2017-04-22] MEDS: CARVEDILOL 12.5 MG TAB PO SCH ×2 (08:50→17:23)
[2017-04-22] MEDS: FOLIC ACID-VIT B COMPLEX-VIT C 1 CAP PO SCH (08:50)
[2017-04-22] MEDS: ISOSORBIDE MONONITRATE ER 30 MG TAB.ER.24H PO SCH (08:50)
[2017-04-22] MEDS: ASPIRIN 325 MG TAB PO SCH (08:50)
[2017-04-22] MEDS ORDERED: ASPIRIN 325 MG TAB PO SCH (09:00)
[2017-04-22] MEDS ORDERED: ALPRAZolam 0.5 MG TAB PO PRN (09:12)
[2017-04-22] MEDS ORDERED: ALPRAZolam 0.25 MG TAB PO PRN (09:12)
--- NOTE | 2017-04-22 10:51 | P.PN ---
Subjective Principal diagnosis: This is a 71-year-old female on dialysis Monday, came in with chest pain with elevated troponins. Cardiac catheterization is being considered. Her troponin went up to 3.57. She had recent cardiac catheterization in December supposedly and had patent vessels. She denies any chest pain shortness of breath nausea vomiting. She has no new complaints. Feels fairly stable. Appetite is fair. No dizziness sweating fever chills. Objective - Vital Signs Vital signs: Vital Signs Temp 97.0 F L 04/22/17 08:00 Pulse 62 04/22/17 08:00 Resp 20 04/22/17 08:00 BP 118/53 04/22/17 08:00 Pulse Ox 95 04/22/17 08:00 Intake & Output 04/21/17 04/22/17 04/22/17 18:59 06:59 18:59 Intake Total 509.667 539.513 494.667 Output Total 2850 Balance -2340.333 539.513 494.667 Weight 85 kg Intake: IV 22 100 Heparin Sodium,Porcine/ 22 100 D5w Pmx 25,000 unit In Dextrose/Water 1 500ml. bag @ 11.696 UNITS/KG/HR 20 mls/hr IV .Q24H [facility] Rx #:[id number] Intake, IV Titration 79.667 217.513 144.667 Amount Heparin Sodium,Porcine/ 217.513 144.667 D5w Pmx 25,000 unit In Dextrose/Water 1 500ml. bag @ 11.696 UNITS/KG/HR 20 mls/hr IV .Q24H [facility] Rx #:[id number] Heparin Sodium,Porcine/ 79.667 D5w Pmx 25,000 unit In Dextrose/Water 1 500ml. bag @ 12 UNITS/KG/HR 20. 13 mls/hr IV .Q24H [facility] Rx #:[id number] Oral 430 300 250 Output: Urine 350 Other 2500 Other: Voiding Method Toilet Toilet Toilet # Voids 1 0 On examination she is awake alert oriented. HEENT exam no JVP neck is supple no facial asymmetry Lungs are clear to auscultation percussion good air entry bilaterally Heart sounds are unremarkable for any murmur rub gallop Abdomen soft nontender no organomegaly ascites masses Extremity exam was no edema Neurologically awake alert oriented no focal motor deficit - Labs CBC & Chem 7: 04/22/17 02:01 04/22/17 02:01 Labs: Abnormal Lab Results - Last 24 Hours (Table) 04/21/17 04/21/17 04/21/17 Range/Units 10:53 12:04 13:15 RBC 3.48 L (3.80-5.40) m/uL Hgb 10.3 L (11.4-16.0) gm/dL Hct 32.4 L (34.0-46.0) % RDW 15.8 H (11.5-15.5) % Lymphocytes # 0.9 L (1.0-4.8) k/uL APTT (22.0-30.0) sec Sodium (137-145) mmol/L BUN (7-17) mg/dL Creatinine (0.52-1.04) mg/dL POC Glucose (mg/dL) 68 L (75-99) mg/dL Total Creatine Kinase (30-135) U/L CK-MB (CK-2) 8.5 H* (0.0-2.4) ng/mL Troponin I 1.180 H* (0.000-0.034) ng/mL 04/21/17 04/21/17 04/21/17 Range/Units 16:18 17:00 19:04 RBC (3.80-5.40) m/uL Hgb (11.4-16.0) gm/dL Hct (34.0-46.0) % RDW (11.5-15.5) % Lymphocytes # (1.0-4.8) k/uL APTT 144.7 H* (22.0-30.0) sec Sodium (137-145) mmol/L BUN (7-17) mg/dL Creatinine (0.52-1.04) mg/dL POC Glucose (mg/dL) 70 L (75-99) mg/dL Total Creatine Kinase 156 H (30-135) U/L CK-MB (CK-2) 13.5 H* (0.0-2.4) ng/mL Troponin I 3.570 H* (0.000-0.034) ng/mL 04/22/17 04/22/17 04/22/17 Range/Units 02:01 02:01 02:01 RBC 3.46 L (3.80-5.40) m/uL Hgb 10.2 L (11.4-16.0) gm/dL Hct 31.4 L (34.0-46.0) % RDW 16.0 H (11.5-15.5) % Lymphocytes # (1.0-4.8) k/uL APTT 31.0 H (22.0-30.0) sec Sodium 134 L (137-145) mmol/L BUN 38 H (7-17) mg/dL Creatinine 4.30 H (0.52-1.04) mg/dL POC Glucose (mg/dL) (75-99) mg/dL Total Creatine Kinase (30-135) U/L CK-MB (CK-2) (0.0-2.4) ng/mL Troponin I (0.000-0.034) ng/mL 04/22/17 04/22/17 Range/Units 06:50 07:29 RBC (3.80-5.40) m/uL Hgb (11.4-16.0) gm/dL Hct (34.0-46.0) % RDW (11.5-15.5) % Lymphocytes # (1.0-4.8) k/uL APTT 42.0 H (22.0-30.0) sec Sodium (137-145) mmol/L BUN (7-17) mg/dL Creatinine (0.52-1.04) mg/dL POC Glucose (mg/dL) 69 L (75-99) mg/dL Total Creatine Kinase (30-135) U/L CK-MB (CK-2) (0.0-2.4) ng/mL Troponin I (0.000-0.034) ng/mL Assessment and Plan Plan: Impression. 1. ESRD on dialysis Monday this morning she had dialysis and stable. 2. Admitted with chest pain rule out OR troponins peaked at 3.57 3. History of cardiac stents and recent restented mid LAD on 11/20/2016 4. Anemia ESRD controlled and at target. 5. Mineral and bone disorder of ESRD controlled. Will check phosphorus. Recommendation. No changes in medications. Watch calcium phosphorus albumin. CBC. Next dialysis is scheduled for Monday
[2017-04-22 12:06] LABS: Glucose,Whole Blood 229 mg/dL (75-99)
[2017-04-22 12:29] LABS: Hemoglobin A1C 10.3 % (4.2-6.1)
[2017-04-22] MEDS: CYANOCOBALAMIN 500 MCG TAB PO SCH (12:32)
[2017-04-22] MEDS: CHOLECALCIFEROL 1,000 UNIT TAB PO SCH (12:32)
--- NOTE | 2017-04-22 12:38 | P.PN ---
Subjective This is a pleasant 71-year-old lady with a history of end-stage renal disease on hemodialysis, diabetes mellitus, CAD, status post angioplasty and hypertension. Presented to the hospital complaining of chest heaviness. Patient had been not feeling well and missed a couple dialysis treatments. First set of troponin was 0.059 and was felt to be related to renal failure however second was 1.180 and third even higher at 3.570. EKG showed sinus rhythm with nonspecific ST-T wave changes. BUN and creatinine were quite elevated on admission, this morning 38 and 4.3 after dialysis yesterday. On examination this morning, patient is resting comfortably in bed. She denies any further complaints of chest heaviness. Denies any complaints of shortness of breath, dizziness or edema. Objective - Vital Signs Vital signs: Vital Signs Temp 97.0 F L 04/22/17 08:00 Pulse 62 04/22/17 11:27 Resp 20 04/22/17 11:27 BP 118/53 04/22/17 08:00 Pulse Ox 95 04/22/17 08:00 Intake & Output 04/21/17 04/22/17 04/22/17 18:59 06:59 18:59 Intake Total 509.667 539.513 548.331 Output Total 2850 Balance -2340.333 539.513 548.331 Weight 85 kg Intake: IV 22 100 Heparin Sodium,Porcine/ 22 100 D5w Pmx 25,000 unit In Dextrose/Water 1 500ml. bag @ 11.696 UNITS/KG/HR 20 mls/hr IV .Q24H [facility] Rx #:[id number] Intake, IV Titration 79.667 217.513 198.331 Amount Heparin Sodium,Porcine/ 217.513 198.331 D5w Pmx 25,000 unit In Dextrose/Water 1 500ml. bag @ 11.696 UNITS/KG/HR 20 mls/hr IV .Q24H [facility] Rx #:[id number] Heparin Sodium,Porcine/ 79.667 D5w Pmx 25,000 unit In Dextrose/Water 1 500ml. bag @ 12 UNITS/KG/HR 20. 13 mls/hr IV .Q24H [facility] Rx #:[id number] Oral 430 300 250 Output: Urine 350 Other 2500 Other: Voiding Method Toilet Toilet Toilet # Voids 1 0 - Exam PHYSICAL EXAMINATION: HEENT: Head is atraumatic, normocephalic. Pupils equal, round. Neck is supple. There is no elevated jugular venous pressure. HEART EXAMINATION: Heart sounds regular, S1 and S2 with a systolic murmur. CHEST EXAMINATION: Lungs are clear to auscultation and precussion. No chest wall tenderness is noted on palpation or with deep breathing. ABDOMEN: Soft, nontender. Bowel sounds are heard. No organomegaly noted. EXTREMITIES: 2+ peripheral pulses with no evidence of peripheral edema and no calf tenderness noted. NEUROLOGIC patient is awake, alert and oriented x3. . - Labs CBC & Chem 7: 04/22/17 02:01 04/22/17 02:01 Labs: Abnormal Lab Results - Last 24 Hours (Table) 04/21/17 04/21/17 04/21/17 Range/Units 13:15 16:18 17:00 RBC 3.48 L (3.80-5.40) m/uL Hgb 10.3 L (11.4-16.0) gm/dL Hct 32.4 L (34.0-46.0) % RDW 15.8 H (11.5-15.5) % Lymphocytes # 0.9 L (1.0-4.8) k/uL APTT (22.0-30.0) sec Sodium (137-145) mmol/L BUN (7-17) mg/dL Creatinine (0.52-1.04) mg/dL POC Glucose (mg/dL) 70 L (75-99) mg/dL Phosphorus (2.5-4.5) mg/dL Total Creatine Kinase 156 H (30-135) U/L CK-MB (CK-2) 13.5 H* (0.0-2.4) ng/mL Troponin I 3.570 H* (0.000-0.034) ng/mL 04/21/17 04/22/17 04/22/17 Range/Units 19:04 02:01 02:01 RBC 3.46 L (3.80-5.40) m/uL Hgb 10.2 L (11.4-16.0) gm/dL Hct 31.4 L (34.0-46.0) % RDW 16.0 H (11.5-15.5) % Lymphocytes # (1.0-4.8) k/uL APTT 144.7 H* (22.0-30.0) sec Sodium 134 L (137-145) mmol/L BUN 38 H (7-17) mg/dL Creatinine 4.30 H (0.52-1.04) mg/dL POC Glucose (mg/dL) (75-99) mg/dL Phosphorus (2.5-4.5) mg/dL Total Creatine Kinase (30-135) U/L CK-MB (CK-2) (0.0-2.4) ng/mL Troponin I (0.000-0.034) ng/mL 04/22/17 04/22/17 04/22/17 Range/Units 02:01 02:20 06:50 RBC (3.80-5.40) m/uL Hgb (11.4-16.0) gm/dL Hct (34.0-46.0) % RDW (11.5-15.5) % Lymphocytes # (1.0-4.8) k/uL APTT 31.0 H (22.0-30.0) sec Sodium (137-145) mmol/L BUN (7-17) mg/dL Creatinine (0.52-1.04) mg/dL POC Glucose (mg/dL) 69 L (75-99) mg/dL Phosphorus 4.7 H (2.5-4.5) mg/dL Total Creatine Kinase (30-135) U/L CK-MB (CK-2) (0.0-2.4) ng/mL Troponin I (0.000-0.034) ng/mL 04/22/17 04/22/17 Range/Units 07:29 12:03 RBC (3.80-5.40) m/uL Hgb (11.4-16.0) gm/dL Hct (34.0-46.0) % RDW (11.5-15.5) % Lymphocytes # (1.0-4.8) k/uL APTT 42.0 H (22.0-30.0) sec Sodium (137-145) mmol/L BUN (7-17) mg/dL Creatinine (0.52-1.04) mg/dL POC Glucose (mg/dL) 229 H (75-99) mg/dL Phosphorus (2.5-4.5) mg/dL Total Creatine Kinase (30-135) U/L CK-MB (CK-2) (0.0-2.4) ng/mL Troponin I (0.000-0.034) ng/mL Assessment and Plan Plan: Assessment and plan #1 non-ST elevated myocardial infarction, peak troponin 3.57 #2 end-stage renal disease on hemodialysis #3 history of coronary artery disease, status post prior angioplasty, most recent cardiac catheterization in December showed patent stents. From cardiology perspective, patient will be nothing by mouth after midnight tomorrow night and likely undergo cardiac catheterization on Monday. Continue IV heparin. We'll continue to follow the patient provide further recommendations accordingly. The above dictated assessment and findings were discussed with signing physician. The impression and plan of care have been directed as dictated. Delia Ames, Nurse Practitioner, acting as scribe for signing physician.
[2017-04-22] MEDS: HEPARIN SODIUM,PORCINE/D5W PMX 25,000 UNIT in DEXTROSE/WATER 1 500ML.BAG IV SCH (12:45)
[2017-04-22 17:25] LABS: Glucose,Whole Blood 79 mg/dL (75-99)
--- NOTE | 2017-04-22 18:15 | P.PN ---
Subjective 71 yr old with a known CAD and previosu PCI, DM2, ESRD on HD comes into the hospital with chest pressure pt was noted to have a troponin leak which has increased currently denies having cp, n/v, abdominal pain, headaches, blurry vision.Doesnot make much urine underwent HD today Objective - Vital Signs Vital signs: Vital Signs Temp 97.9 F 04/22/17 16:00 Pulse 66 04/22/17 16:00 Resp 19 04/22/17 16:00 BP 127/59 04/22/17 16:00 Pulse Ox 94 L 04/22/17 16:00 Intake & Output 04/21/17 04/22/17 04/22/17 18:59 06:59 18:59 Intake Total 509.667 539.513 983.739 Output Total 2850 150 Balance -2340.333 539.513 833.739 Weight 85 kg Intake: IV 22 180 Heparin Sodium,Porcine/ 22 180 D5w Pmx 25,000 unit In Dextrose/Water 1 500ml. bag @ 11.696 UNITS/KG/HR 20 mls/hr IV .Q24H [facility] Rx #:[id number] Intake, IV Titration 79.667 217.513 203.739 Amount Heparin Sodium,Porcine/ 217.513 203.739 D5w Pmx 25,000 unit In Dextrose/Water 1 500ml. bag @ 11.696 UNITS/KG/HR 20 mls/hr IV .Q24H [facility] Rx #:[id number] Heparin Sodium,Porcine/ 79.667 D5w Pmx 25,000 unit In Dextrose/Water 1 500ml. bag @ 12 UNITS/KG/HR 20. 13 mls/hr IV .Q24H [facility] Rx #:[id number] Oral 430 300 600 Output: Urine 350 150 Other 2500 Other: Voiding Method Toilet Toilet Toilet # Voids 1 1 - Constitutional General appearance: Present: no acute distress - EENT Eyes: Present: PERRLA - Neck Neck: Present: normal ROM - Respiratory Respiratory: bilateral: CTA, negative: dullness, rales, rhonchi - Cardiovascular Rhythm: regular Heart sounds: normal: S1, S2 Abnormal Heart Sounds: Present: systolic murmur - Gastrointestinal General gastrointestinal: Present: normal bowel sounds, soft. Absent: distended , organomegaly - Integumentary Integumentary: Present: normal (left upper arm palpable thrill noted) - Neurologic Neurologic: Present: CNII-XII intact. Absent: focal deficits - Psychiatric Psychiatric: Present: A&O x's 3, appropriate affect - Labs CBC & Chem 7: 04/22/17 02:01 04/22/17 02:01 Labs: Abnormal Lab Results - Last 24 Hours (Table) 04/21/17 04/21/17 04/22/17 Range/Units 16:18 19:04 02:01 RBC 3.46 L (3.80-5.40) m/uL Hgb 10.2 L (11.4-16.0) gm/dL Hct 31.4 L (34.0-46.0) % RDW 16.0 H (11.5-15.5) % APTT 144.7 H* (22.0-30.0) sec Sodium (137-145) mmol/L BUN (7-17) mg/dL Creatinine (0.52-1.04) mg/dL POC Glucose (mg/dL) (75-99) mg/dL Hemoglobin A1c 10.3 H (4.2-6.1) % Phosphorus (2.5-4.5) mg/dL 04/22/17 04/22/17 04/22/17 Range/Units 02:01 02:01 02:20 RBC (3.80-5.40) m/uL Hgb (11.4-16.0) gm/dL Hct (34.0-46.0) % RDW (11.5-15.5) % APTT 31.0 H (22.0-30.0) sec Sodium 134 L (137-145) mmol/L BUN 38 H (7-17) mg/dL Creatinine 4.30 H (0.52-1.04) mg/dL POC Glucose (mg/dL) (75-99) mg/dL Hemoglobin A1c (4.2-6.1) % Phosphorus 4.7 H (2.5-4.5) mg/dL 04/22/17 04/22/17 04/22/17 Range/Units 06:50 07:29 12:03 RBC (3.80-5.40) m/uL Hgb (11.4-16.0) gm/dL Hct (34.0-46.0) % RDW (11.5-15.5) % APTT 42.0 H (22.0-30.0) sec Sodium (137-145) mmol/L BUN (7-17) mg/dL Creatinine (0.52-1.04) mg/dL POC Glucose (mg/dL) 69 L 229 H (75-99) mg/dL Hemoglobin A1c (4.2-6.1) % Phosphorus (2.5-4.5) mg/dL 04/22/17 Range/Units 14:54 RBC (3.80-5.40) m/uL Hgb (11.4-16.0) gm/dL Hct (34.0-46.0) % RDW (11.5-15.5) % APTT 61.7 H (22.0-30.0) sec Sodium (137-145) mmol/L BUN (7-17) mg/dL Creatinine (0.52-1.04) mg/dL POC Glucose (mg/dL) (75-99) mg/dL Hemoglobin A1c (4.2-6.1) % Phosphorus (2.5-4.5) mg/dL Assessment and Plan Plan: 1. Acute Non q wave IL 2. ESRD on HD TTS 3. Anemia of ESRD 4 DM2 5. CAD 6. HTN Plan symptom free at this time labs to be monitered to undergo cardiac cath on monday currently stable Dual antiplatelet therapy statin Vitals stable. continue heparin per acs protocol glucose levels appropriate.
[2017-04-22] MEDS: ATORVASTATIN 80 MG TAB PO SCH (20:35)
[2017-04-22 21:18] LABS: Glucose,Whole Blood 173 mg/dL (75-99)
[2017-04-23 05:57] LABS: Glucose,Whole Blood 62 mg/dL (75-99)
[2017-04-23] MEDS: INSULIN LISPRO (humaLOG) 300 UNIT/3 ML VIAL SQ SCH ×4 (06:15→21:22)
[2017-04-23 06:30] LABS: Glucose,Whole Blood 81 mg/dL (75-99)
[2017-04-23] MEDS: CARVEDILOL 12.5 MG TAB PO SCH ×2 (06:42→17:21)
[2017-04-23] MEDS: CALCIUM ACETATE 667 MG CAP PO SCH ×3 (06:42→17:22)
[2017-04-23] MEDS: MAGNESIUM OXIDE 400 MG TAB PO SCH ×2 (06:42→17:21)
[2017-04-23 07:19] LABS: Aty Lym Flag Slight; CH 29.5; CHCM 33.8; HDW 2.52; HGB 11.3 gm/dL (11.4-16.0); MCH 30.1 pg (25.0-35.0); MCHC 34.3 g/dL (31.0-37.0); MCV 87.7 fL (80.0-100.0); Mean Platelet Volume 7.7; RBC 3.76 m/uL (3.80-5.40); RDW 15.5 % (11.5-15.5); WBC 9.2 k/uL (3.8-10.6); WBC (Perox) 9.52
[2017-04-23] MEDS: LISINOPRIL 10 MG TAB PO SCH (08:38)
[2017-04-23] MEDS: ISOSORBIDE MONONITRATE ER 30 MG TAB.ER.24H PO SCH (08:38)
[2017-04-23] MEDS: FUROSEMIDE 40 MG TAB PO SCH ×2 (08:38→17:22)
[2017-04-23] MEDS: MECLIZINE 25 MG TAB PO SCH ×2 (08:38→20:23)
[2017-04-23] MEDS: ASPIRIN 325 MG TAB PO SCH (08:38)
[2017-04-23] MEDS: INSULIN GLARGINE 100 UNIT/ML 10 ML VIAL SQ SCH (08:38)
[2017-04-23] MEDS: CLOPIDOGREL 75 MG TAB PO SCH (08:38)
[2017-04-23] MEDS: CITALOPRAM HYDROBROMIDE 20 MG TAB PO SCH (08:38)
[2017-04-23] MEDS: FERROUS SULFATE 325 MG TAB PO SCH ×2 (08:38→20:22)
[2017-04-23] MEDS: FOLIC ACID-VIT B COMPLEX-VIT C 1 CAP PO SCH (08:39)
[2017-04-23 09:15] LABS: Add Differential Manual Differential
[2017-04-23 09:17] LABS: Nucleated Red Blood Cells 0 /100 WBC (0-0); RBC Morphology Normal; Total Cells Counted 100
--- NOTE | 2017-04-23 10:47 | P.PN ---
Subjective Principal diagnosis: This is a 71-year-old female on dialysis Monday, came in with chest pain with elevated troponins. Cardiac catheterization is being considered. Her troponin went up to 3.57. She had recent cardiac catheterization in December supposedly and had patent vessels. This morning she is continuing to deny any chest pain. No shortness of breath and sweating dizziness. As appetite is up and down she said yesterday she was able to eat better but this morning has no appetite. Objective - Vital Signs Vital signs: Vital Signs Temp 98.2 F 04/23/17 08:00 Pulse 61 04/23/17 08:00 Resp 18 04/23/17 08:00 BP 114/57 04/23/17 08:00 Pulse Ox 95 04/23/17 08:00 Intake & Output 04/22/17 04/23/17 04/23/17 18:59 06:59 18:59 Intake Total 1103.739 120 842.6 Output Total 150 100 Balance 953.739 120 742.6 Weight 83.2 kg Intake: IV 180 120 60 Heparin Sodium,Porcine/ 180 120 60 D5w Pmx 25,000 unit In Dextrose/Water 1 500ml. bag @ 11.696 UNITS/KG/HR 20 mls/hr IV .Q24H [facility] Rx #:[id number] Intake, IV Titration 203.739 457.6 Amount Heparin Sodium,Porcine/ 203.739 457.6 D5w Pmx 25,000 unit In Dextrose/Water 1 500ml. bag @ 11.696 UNITS/KG/HR 20 mls/hr IV .Q24H [facility] Rx #:[id number] Oral 720 325 Output: Urine 150 100 Other: Voiding Method Toilet Toilet Toilet # Voids 1 1 1 On examination she is awake alert oriented comfortable. Warm to touch. HEENT exam no JVP neck is supple no facial asymmetry Lungs clear to auscultation percussion good air entry bilaterally Heart sounds are unremarkable no murmur rub gallop. Abdomen soft nontender no organomegaly status masses Extremity exam reveals no edema Warm to touch. Neurologically awake alert oriented no focal motor deficit - Labs CBC & Chem 7: 04/23/17 06:02 04/22/17 02:01 Labs: Abnormal Lab Results - Last 24 Hours (Table) 04/21/17 04/22/17 04/22/17 Range/Units 16:18 02:20 12:03 RBC (3.80-5.40) m/uL Hgb (11.4-16.0) gm/dL Hct (34.0-46.0) % Monocytes # (Manual) (0-1.0) k/uL Eosinophils # (Manual) (0-0.7) k/uL APTT (22.0-30.0) sec POC Glucose (mg/dL) 229 H (75-99) mg/dL Hemoglobin A1c 10.3 H (4.2-6.1) % Phosphorus 4.7 H (2.5-4.5) mg/dL 04/22/17 04/22/17 04/23/17 Range/Units 14:54 21:12 05:55 RBC (3.80-5.40) m/uL Hgb (11.4-16.0) gm/dL Hct (34.0-46.0) % Monocytes # (Manual) (0-1.0) k/uL Eosinophils # (Manual) (0-0.7) k/uL APTT 61.7 H (22.0-30.0) sec POC Glucose (mg/dL) 173 H 62 L (75-99) mg/dL Hemoglobin A1c (4.2-6.1) % Phosphorus (2.5-4.5) mg/dL 04/23/17 04/23/17 Range/Units 06:02 06:02 RBC 3.76 L (3.80-5.40) m/uL Hgb 11.3 L (11.4-16.0) gm/dL Hct 33.0 L (34.0-46.0) % Monocytes # (Manual) 1.1 H (0-1.0) k/uL Eosinophils # (Manual) 1.2 H (0-0.7) k/uL APTT 78.3 H (22.0-30.0) sec POC Glucose (mg/dL) (75-99) mg/dL Hemoglobin A1c (4.2-6.1) % Phosphorus (2.5-4.5) mg/dL Assessment and Plan Plan: Impression. 1. ESRD on dialysis Monday and stable. 2. Admitted with chest pain rule out [place] troponins peaked at 3.57. Pain-free at the moment 3. History of cardiac stents and recent restented. Most Recent cardiac cath supposedly normal December 2016 4. Anemia ESRD controlled and at target. 5. Mineral and bone disorder of ESRD controlled. Will check phosphorus. Recommendation. No changes in medications. Watch calcium phosphorus albumin. CBC. Next dialysis is scheduled for Monday She is scheduled for cardiac cath possibly tomorrow Monday
[2017-04-23] MEDS: CYANOCOBALAMIN 500 MCG TAB PO SCH (11:10)
[2017-04-23] MEDS: CHOLECALCIFEROL 1,000 UNIT TAB PO SCH (11:10)
[2017-04-23 12:08] LABS: Glucose,Whole Blood 182 mg/dL (75-99)
--- NOTE | 2017-04-23 12:57 | PN ---
71 -year-old lady with history of end-stage renal disease on hemodialysis, came in with shortness of breath and ruled in for myocardial infarction. Troponin on her went up to 3.5. The patient had a cardiac catheterization in December that revealed patent stents but given the new symptoms and progressively elevating troponin, she needs to have another catheterization on this admission and hopefully that we can get this done by Dr. Chalo Hernandez on Monday. On exam, comfortable at rest. Heart rate is 68 beats per minute, blood pressure 157/70m respiratory rate is 18. Chest exam reveals good air entry bilaterally. Heart exam reveals first and second heart sounds. No gallop. ABDOMEN: Soft, nontender. Exam of the extremities did not reveal edema. Peripheral pulses are felt. ASSESSMENT: 1. Non-ST segment elevation myocardial infarction. 2. Chronic renal failure. 3. Coronary artery disease, status post angioplasty. 4. Diabetes. 5. Dyslipidemia. PLAN: Patient will undergo coronary angiogram tomorrow.
[2017-04-23 17:14] LABS: Glucose,Whole Blood 57 mg/dL (75-99)
--- NOTE | 2017-04-23 17:17 | P.PN ---
Subjective 71 yr old with a known CAD and previosu PCI, DM2, ESRD on HD comes into the hospital with chest pressure pt was noted to have a troponin leak which has increased currently denies having cp, n/v, abdominal pain, headaches, blurry vision.Doesnot make much urine underwent HD today 04/23/17 doing well comfortable no new complaints Objective - Vital Signs Vital signs: Vital Signs Temp 98.1 F 04/23/17 16:00 Pulse 70 04/23/17 16:00 Resp 18 04/23/17 16:00 BP 123/60 04/23/17 16:00 Pulse Ox 98 04/23/17 16:00 Intake & Output 04/22/17 04/23/17 04/23/17 18:59 06:59 18:59 Intake Total 1103.739 120 967.6 Output Total 150 100 Balance 953.739 120 867.6 Weight 83.2 kg Intake: IV 180 120 60 Heparin Sodium,Porcine/ 180 120 60 D5w Pmx 25,000 unit In Dextrose/Water 1 500ml. bag @ 11.696 UNITS/KG/HR 20 mls/hr IV .Q24H [facility] Rx #:[id number] Intake, IV Titration 203.739 457.6 Amount Heparin Sodium,Porcine/ 203.739 457.6 D5w Pmx 25,000 unit In Dextrose/Water 1 500ml. bag @ 11.696 UNITS/KG/HR 20 mls/hr IV .Q24H [facility] Rx #:[id number] Oral 720 450 Output: Urine 150 100 Other: Voiding Method Toilet Toilet Toilet # Voids 1 1 1 - Constitutional General appearance: Present: no acute distress - EENT Eyes: Present: EOMI, PERRLA - Neck Neck: Present: normal ROM - Respiratory Respiratory: bilateral: CTA, negative: dullness, rales, rhonchi - Cardiovascular Rhythm: regular Heart sounds: normal: S1, S2 Abnormal Heart Sounds: Absent: systolic murmur - Gastrointestinal General gastrointestinal: Present: normal bowel sounds, soft. Absent: organomegaly - Neurologic Neurologic: Present: CNII-XII intact. Absent: focal deficits - Musculoskeletal Musculoskeletal: Present: gait normal - Psychiatric Psychiatric: Present: A&O x's 3. Absent: appropriate affect - Labs CBC & Chem 7: 04/23/17 06:02 04/22/17 02:01 Labs: Abnormal Lab Results - Last 24 Hours (Table) 04/22/17 04/23/17 04/23/17 Range/Units 21:12 05:55 06:02 RBC 3.76 L (3.80-5.40) m/uL Hgb 11.3 L (11.4-16.0) gm/dL Hct 33.0 L (34.0-46.0) % Monocytes # (Manual) 1.1 H (0-1.0) k/uL Eosinophils # (Manual) 1.2 H (0-0.7) k/uL APTT (22.0-30.0) sec POC Glucose (mg/dL) 173 H 62 L (75-99) mg/dL 04/23/17 04/23/17 04/23/17 Range/Units 06:02 12:02 17:08 RBC (3.80-5.40) m/uL Hgb (11.4-16.0) gm/dL Hct (34.0-46.0) % Monocytes # (Manual) (0-1.0) k/uL Eosinophils # (Manual) (0-0.7) k/uL APTT 78.3 H (22.0-30.0) sec POC Glucose (mg/dL) 182 H 57 L (75-99) mg/dL Assessment and Plan Plan: 1. Acute Non q wave CA 2. ESRD on HD TTS 3. Anemia of ESRD 4 DM2 5. CAD 6. HTN Plan to undergo cardiac cath on monday currently stable Dual antiplatelet therapy statin Vitals stable. continue heparin per acs protocol glucose levels appropriate.
[2017-04-23 17:44] LABS: Glucose,Whole Blood 70 mg/dL (75-99)
[2017-04-23 17:44] LABS: Glucose,Whole Blood 56 mg/dL (75-99)
[2017-04-23] MEDS: ATORVASTATIN 80 MG TAB PO SCH (20:22)
[2017-04-23 20:43] LABS: Glucose,Whole Blood 144 mg/dL (75-99)
[2017-04-24 05:56] LABS: Glucose,Whole Blood 139 mg/dL (75-99)
[2017-04-24] MEDS: MECLIZINE 25 MG TAB PO SCH ×2 (06:17→21:40)
[2017-04-24] MEDS: CITALOPRAM HYDROBROMIDE 20 MG TAB PO SCH (06:17)
[2017-04-24] MEDS: CALCIUM ACETATE 667 MG CAP PO SCH ×3 (06:17→17:52)
[2017-04-24] MEDS: MAGNESIUM OXIDE 400 MG TAB PO SCH ×2 (06:17→17:52)
[2017-04-24] MEDS: LISINOPRIL 10 MG TAB PO SCH (06:18)
[2017-04-24] MEDS: ISOSORBIDE MONONITRATE ER 30 MG TAB.ER.24H PO SCH (06:18)
[2017-04-24] MEDS: CLOPIDOGREL 75 MG TAB PO SCH (06:18)
[2017-04-24] MEDS: FOLIC ACID-VIT B COMPLEX-VIT C 1 CAP PO SCH (06:18)
[2017-04-24] MEDS: ASPIRIN 325 MG TAB PO SCH (06:18)
[2017-04-24] MEDS: INSULIN LISPRO (humaLOG) 300 UNIT/3 ML VIAL SQ SCH ×4 (06:19→21:40)
[2017-04-24] MEDS: FERROUS SULFATE 325 MG TAB PO SCH ×2 (06:19→21:40)
[2017-04-24] MEDS: CARVEDILOL 12.5 MG TAB PO SCH ×2 (06:19→17:52)
[2017-04-24] MEDS ORDERED: ASPIRIN 325 MG TAB PO STA (08:29)
[2017-04-24] MEDS ORDERED: SODIUM CHLORIDE 0.9% 1,000 ML in EMPTY BAG 1 BAG IV ONE (08:29)
[2017-04-24] MEDS ORDERED: ALPRAZolam 0.5 MG TAB PO PRN (08:29)
[2017-04-24] MEDS ORDERED: ALPRAZolam 0.25 MG TAB PO PRN (08:29)
[2017-04-24] MEDS ORDERED: NITROGLYCERIN SL TABS 0.4 MG TAB SUBLINGUAL PRN ×2 (08:29→12:54)
[2017-04-24] MEDS ORDERED: ATORVASTATIN 80 MG TAB PO STA (08:29)
[2017-04-24] MEDS: FUROSEMIDE 40 MG TAB PO SCH ×2 (09:50→17:52)
[2017-04-24] MEDS: INSULIN GLARGINE 100 UNIT/ML 10 ML VIAL SQ SCH (09:51)
[2017-04-24] MEDS ORDERED: SODIUM CHLORIDE 0.9% 1,000 ML IV ONE (11:00)
[2017-04-24] MEDS ORDERED: diphenhydrAMINE 50 MG/ML 1 ML VIAL ONE (11:07)
[2017-04-24] MEDS ORDERED: fentaNYL (PF) 50 MCG/ML 2 ML AMP ONE (11:07)
[2017-04-24] MEDS ORDERED: LIDOCAINE 2% INJ 20 MG/ML (20 ML MDV) ONE (11:07)
[2017-04-24] MEDS ORDERED: diphenhydrAMINE 50 MG/ML 1 ML VIAL IVP ONE (11:42)
[2017-04-24] MEDS ORDERED: fentaNYL (PF) 50 MCG/ML 2 ML AMP IV ONE (11:42)
[2017-04-24] MEDS ORDERED: LIDOCAINE 2% INJ 20 MG/ML SQ ONE ×2 (11:46)
[2017-04-24] MEDS ORDERED: BIVALIRUDIN BOLUS 250 MG/50 ML IV ONE (12:17)
[2017-04-24] MEDS ORDERED: BIVALIRUDIN 250 MG in SODIUM CHLORIDE 0.9% 50 ML IV ONE (12:19)
[2017-04-24] MEDS ORDERED: CLOPIDOGREL 75 MG TAB ONE (12:27)
[2017-04-24] MEDS ORDERED: CLOPIDOGREL 75 MG TAB PO ONE (12:47)
[2017-04-24] MEDS ORDERED: IODIXANOL 320 MG/ML 100 ML INTRAARTER ONE (12:47)
[2017-04-24] MEDS ORDERED: ATROPINE SULFATE 0.1 MG/ML 10ML SYRINGE IV PRN (12:54)
[2017-04-24] MEDS ORDERED: RX INFO: IV CONTRAST WAS GIVEN 1 EACH MISC MISCELLANE PRN (12:54)
[2017-04-24] MEDS ORDERED: MAG HYDROX/AL HYDROX/SIMETH 30 ML CUP PO PRN (12:54)
[2017-04-24 13:31] VITALS: BMI 33.9
[2017-04-24] MEDS: CYANOCOBALAMIN 500 MCG TAB PO SCH (14:05)
[2017-04-24] MEDS: CHOLECALCIFEROL 1,000 UNIT TAB PO SCH (14:05)
[2017-04-24] MEDS: SODIUM CHLORIDE 0.9% 1,000 ML IV SCH (14:06)
[2017-04-24 14:39] LABS: Glucose,Whole Blood 142 mg/dL (75-99)
--- NOTE | 2017-04-24 16:12 | PN ---
Patient is seen for follow-up for end-stage renal disease. She is scheduled for cardiac catheterization today. Patient denies any chest pains or shortness of breath. She is otherwise comfortable. Normally patient is maintained on a Monday, , Monday schedule for dialysis. She is scheduled for hemodialysis tomorrow. On examination today, blood pressure is 107/31, heart rate 68 per minute. She is afebrile. Examination reveals no significant edema in the lower extremities. ABDOMEN: Soft, nontender. The patient appears fairly euvolemic. 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 Labs revealed on 04/22 potassium was 4.3, hemoglobin 10.2 g/dL. ASSESSMENT: 1. End-stage renal disease on hemodialysis on a Monday, , Monday schedule. The patient will be dialyzed tomorrow. 2. Non-ST elevation myocardial infarction with a history of coronary artery disease and previous cardiac catheterization scheduled for cardiac catheterization today. 3. Chronic kidney disease, bone mineral disorder. 4. Hypertension, currently controlled. 5. Anemia of chronic disease. PLAN: Hemodialysis in a.m. Avoid IV fluids. Post cath.
[2017-04-24 17:08] LABS: Glucose,Whole Blood 134 mg/dL (75-99)
[2017-04-24 20:36] LABS: Glucose,Whole Blood 141 mg/dL (75-99)
[2017-04-24] MEDS ORDERED: ZOLPIDEM 5 MG TAB PO PRN (21:00)
[2017-04-24] MEDS ORDERED: FAMOTIDINE 20 MG TAB PO PRN (21:00)
[2017-04-24] MEDS: ATORVASTATIN 80 MG TAB PO SCH (21:40)
[2017-04-25] MEDS: SODIUM CHLORIDE 0.9% 1,000 ML IV SCH ×2 (03:54→15:23)
[2017-04-25 05:21] LABS: Aty Lym Flag Slight; HCT 30.5 % (34.0-46.0); HDW 2.56; HGB 10.7 gm/dL (11.4-16.0); MCH 30.2 pg (25.0-35.0); MCHC 35.2 g/dL (31.0-37.0); MCV 85.9 fL (80.0-100.0); Mean Platelet Volume 8.1; RBC 3.55 m/uL (3.80-5.40); RDW 15.6 % (11.5-15.5); WBC 7.4 k/uL (3.8-10.6); WBC (Perox) 7.62
[2017-04-25 05:44] LABS: Calcium 8.4 mg/dL (8.4-10.2); Total Bilirubin 1.1 mg/dL (0.2-1.3); Total Protein 5.9 g/dL (6.3-8.2)
[2017-04-25 06:00] LABS: Glucose,Whole Blood 93 mg/dL (75-99)
[2017-04-25 06:08] LABS: Add Differential Manual Differential
[2017-04-25 06:12] LABS: Nucleated Red Blood Cells 0 /100 WBC (0-0); Total Cells Counted 100
[2017-04-25] MEDS: CALCIUM ACETATE 667 MG CAP PO SCH ×3 (06:20→17:31)
[2017-04-25] MEDS: CARVEDILOL 12.5 MG TAB PO SCH ×2 (06:20→15:43)
[2017-04-25] MEDS: MAGNESIUM OXIDE 400 MG TAB PO SCH ×2 (06:20→17:31)
[2017-04-25] MEDS: INSULIN LISPRO (humaLOG) 300 UNIT/3 ML VIAL SQ SCH ×4 (06:32→20:55)
--- NOTE | 2017-04-25 07:54 | CC ---
DATE OF SERVICE: Patient's cath # being [id number], PTCA # being [id number]. CLINICAL INFORMATION: Margarita Bloom is a known patient with atherosclerotic heart disease, status post angioplasty and stenting in the LAD and admitted to the hospital with chest pain with troponin leaks consistent with non-Q-wave myocardial infarction. Patient is on dialysis, hypertension, diabetic hypercholesterolemic. Patient is an ex-smoker. Patient was advised cardiac catheterization for definitive diagnosis and treatment. Patient was informed of all the risks and benefits of the procedure, understood and accepted. Under local anesthesia, the patient's right femoral artery is cannulated using a Seldinger technique with sterile precautions. Patient tolerated the procedure very well. Throughout the procedure there were no complications during or after completion of the procedure. The patient remained under sedation for the procedure. The patient had a heavily calcified right femoral artery, so patient was sent to the floor to remove the sheath and then stopped for 4 hours. Patient was given the results of the angioplasty. HEMODYNAMIC DATA: Aortic pressure noted to be 112/41 with a mean pressure of 67. Left ventricular end-diastolic pressure was not done. SELECTIVE CORONARY ARTERIOGRAPHY: Left main coronary artery is of normal caliber, long left main and calcified without any significant atherosclerotic occlusive lesions. Left anterior descending is a heavily calcified vessel, noted to have 70% to 80% stenosis just to beyond the origin of the diagonal branch up until the diagonal comes close to the lesion. This is a new lesion which was not present 4 months ago. Four months ago it looked 10% to 20%, now it is 60% to 70%. Stented segment in the mid LAD is free of any atherosclerotic occlusive disease. Distal course of the LAD is free of any atherosclerotic occlusive disease. Diagonal is also good size blood vessel. Left circumflex is a small caliber blood vessel, nondominant, limited distribution, noted to have 60% to 70% stenosis close to the left main artery, stentable vessel because of the location and need to leave that alone because it may end up creating more troubles. RIGHT CORONARY: Right coronary artery is dominant, 95% ostial stenosis. No guide catheter could not sit in place. Distal course was free of any atherosclerotic occlusive disease. ASSESSMENT: Two-vessel disease involving the 60% to 70% stenosis in mid left anterior descending artery after the origin of the good-size diagonal branch without any evidence of restenosis in the stented segment in the mid left anterior descending artery. The circumflex is similar to before and right coronary is a 95% ostial narrowing, severely calcified right coronary. Will proceed with angioplasty and stenting of the right coronary and may consider doing a staged procedure on the left anterior descending artery lesion if symptomatic.
[2017-04-25] MEDS: ASPIRIN 325 MG TAB PO SCH (07:57)
[2017-04-25] MEDS: FUROSEMIDE 40 MG TAB PO SCH ×2 (07:58→15:42)
[2017-04-25] MEDS: CYANOCOBALAMIN 500 MCG TAB PO SCH (07:58)
[2017-04-25] MEDS: CITALOPRAM HYDROBROMIDE 20 MG TAB PO SCH (07:58)
--- NOTE | 2017-04-25 07:58 | PTCA ---
DATE OF SERVICE: ANGIOPLASTY AND STENTING OF THE RCA: Under local anesthesia, continued anesthesia for one hour, proceeded with angioplasty using a right coronary guide. Advanced a Whisper J into the distal RCA over the wire. Advanced 1.5 mm balloon placed across the lesion and dilated to 8 atmospheres x2, followed by a Vision Xience stent 2.5, 12 mm placed across the lesion, confirmed in position, deployed at 10 to 12 atmospheres with excellent angiographic results. Patient tolerated the procedure well. Patient had no complications during or after completion of the procedure. Patient had some EKG changes during the procedure. Patient had received Angiomax bolus and infusion followed by additional 300 mg Plavix in addition to Plavix she has been taking all along. Patient tolerated the procedure very well. Patient successful dilatation of 95% ( ) narrowing reduced to 0% residual stenosis with good angiographic results.
[2017-04-25] MEDS: MECLIZINE 25 MG TAB PO SCH ×2 (07:59→20:56)
[2017-04-25] MEDS: FERROUS SULFATE 325 MG TAB PO SCH ×2 (07:59→20:56)
[2017-04-25] MEDS: CLOPIDOGREL 75 MG TAB PO SCH (07:59)
[2017-04-25] MEDS: FOLIC ACID-VIT B COMPLEX-VIT C 1 CAP PO SCH (07:59)
[2017-04-25] MEDS: CHOLECALCIFEROL 1,000 UNIT TAB PO SCH (08:00)
[2017-04-25] MEDS: INSULIN GLARGINE 100 UNIT/ML 10 ML VIAL SQ SCH (08:03)
[2017-04-25 11:49] LABS: Glucose,Whole Blood 93 mg/dL (75-99)
--- NOTE | 2017-04-25 12:37 | P.PN ---
Subjective Principal diagnosis: Non-STEMI This is a 71-year-old female with history of end-stage renal disease on hemodialysis, diabetes, coronary artery disease, hypertension, hyperlipidemia , who presented to the hospital with a non-Q-wave myocardial infarction. She was taken to the cardiac catheterization lab yesterday by Dr. Pack where she underwent angioplasty with stenting of the right coronary artery. At the time of my examination this morning, patient continued to have a FemoStop in place, she did develop a mild hematoma through the night last night. I removed the FemoStop, site is soft. Patient feels well overall, denies any chest pain or difficulty in breathing. She is scheduled to have dialysis today. EKG shows normal sinus rhythm with no changes from post-PCI. Blood pressure 140/60 with a heart rate in the 60s. 94% on room air. Hemoglobin 10.7, platelet count 151, BUN 62, creatinine 7. Objective - Vital Signs Vital signs: Vital Signs Temp 96.9 F L 04/25/17 00:00 Pulse 58 L 04/25/17 07:10 Resp 16 04/25/17 07:10 BP 140/63 04/25/17 07:10 Pulse Ox 94 L 04/25/17 07:10 Intake & Output 04/24/17 04/25/17 04/25/17 18:59 06:59 18:59 Intake Total 94 120 Output Total 800 Balance 94 -800 120 Weight 84.2 kg 83.5 kg Intake: IV 19 Intake, IV Titration 75 Amount Sodium Chloride 0.9% 1, 75 000 ml @ 75 mls/hr IV . [id number] [facility] Rx#:[id number] Oral 120 Output: Urine 800 Straight 400 Other: Voiding Method Bedpan # Voids 0 0 - Exam PHYSICAL EXAMINATION: HEENT: Head is atraumatic, normocephalic. Pupils equal, round. Neck is supple. There is no elevated jugular venous pressure. HEART EXAMINATION: Heart sounds regular, S1 and S2 with a systolic murmur. CHEST EXAMINATION: Lungs are clear to auscultation and precussion. No chest wall tenderness is noted on palpation or with deep breathing. ABDOMEN: Soft, nontender. Bowel sounds are heard. No organomegaly noted. EXTREMITIES: 2+ peripheral pulses with no evidence of peripheral edema and no calf tenderness noted. NEUROLOGIC patient is awake, alert and oriented x3. - Labs CBC & Chem 7: 04/25/17 05:00 04/25/17 05:00 Labs: Abnormal Lab Results - Last 24 Hours (Table) 04/24/17 04/24/17 04/24/17 Range/Units 14:24 15:26 17:07 RBC (3.80-5.40) m/uL Hgb (11.4-16.0) gm/dL Hct (34.0-46.0) % RDW (11.5-15.5) % APTT 57.7 H (22.0-30.0) sec Sodium (137-145) mmol/L Chloride (98-107) mmol/L Carbon Dioxide (22-30) mmol/L BUN (7-17) mg/dL Creatinine (0.52-1.04) mg/dL POC Glucose (mg/dL) 142 H 134 H (75-99) mg/dL AST (14-36) U/L Total Protein (6.3-8.2) g/dL Albumin (3.5-5.0) g/dL HDL Cholesterol (40-60) mg/dL 04/24/17 04/24/17 04/24/17 Range/Units 18:18 19:56 20:33 RBC (3.80-5.40) m/uL Hgb (11.4-16.0) gm/dL Hct (34.0-46.0) % RDW (11.5-15.5) % APTT 42.6 H 39.9 H (22.0-30.0) sec Sodium (137-145) mmol/L Chloride (98-107) mmol/L Carbon Dioxide (22-30) mmol/L BUN (7-17) mg/dL Creatinine (0.52-1.04) mg/dL POC Glucose (mg/dL) 141 H (75-99) mg/dL AST (14-36) U/L Total Protein (6.3-8.2) g/dL Albumin (3.5-5.0) g/dL HDL Cholesterol (40-60) mg/dL 04/24/17 04/24/17 04/25/17 Range/Units 21:27 22:30 00:35 RBC (3.80-5.40) m/uL Hgb (11.4-16.0) gm/dL Hct (34.0-46.0) % RDW (11.5-15.5) % APTT 35.7 H 34.1 H 31.3 H (22.0-30.0) sec Sodium (137-145) mmol/L Chloride (98-107) mmol/L Carbon Dioxide (22-30) mmol/L BUN (7-17) mg/dL Creatinine (0.52-1.04) mg/dL POC Glucose (mg/dL) (75-99) mg/dL AST (14-36) U/L Total Protein (6.3-8.2) g/dL Albumin (3.5-5.0) g/dL HDL Cholesterol (40-60) mg/dL 04/25/17 04/25/17 Range/Units 05:00 05:00 RBC 3.55 L (3.80-5.40) m/uL Hgb 10.7 L (11.4-16.0) gm/dL Hct 30.5 L (34.0-46.0) % RDW 15.6 H (11.5-15.5) % APTT (22.0-30.0) sec Sodium 136 L (137-145) mmol/L Chloride 97 L (98-107) mmol/L Carbon Dioxide 17 L (22-30) mmol/L BUN 62 H (7-17) mg/dL Creatinine 7.00 H* (0.52-1.04) mg/dL POC Glucose (mg/dL) (75-99) mg/dL AST 68 H (14-36) U/L Total Protein 5.9 L (6.3-8.2) g/dL Albumin 3.1 L (3.5-5.0) g/dL HDL Cholesterol 25 L (40-60) mg/dL Assessment and Plan (1) NSTEMI (non-ST elevated myocardial infarction) Status: Acute (2) S/P right coronary artery (RCA) stent placement Status: Acute (3) Diabetes Status: Acute (4) ESRD (end stage renal disease) Status: Acute (5) HTN (hypertension) Status: Acute (6) Hyperlipemia Status: Acute (7) Pulmonary edema Status: Acute Plan: From cardiac standpoint, patient may be able to be discharged home this evening , after dialysis. We will make her a follow-up appointment to see Dr. Field in the office post discharge. She will be discharged home on aspirin 81 mg daily, Lipitor 80 mg daily, Coreg 12.5 mg by mouth twice a day, Plavix 75 mg daily, Lasix 40 mg by mouth twice a day, Imdur 30 mg daily, Lisinopril 10 mg daily, sublingual nitroglycerin as needed for chest pain. DNP note has been reviewed, I agree with a documented findings and plan of care. Patient was seen and examined.
[2017-04-25 14:14] VITALS: RESP 18
[2017-04-25] MEDS: LISINOPRIL 10 MG TAB PO SCH (15:22)
[2017-04-25] MEDS: ISOSORBIDE MONONITRATE ER 30 MG TAB.ER.24H PO SCH (15:22)
[2017-04-25 16:54] VITALS: PULSE 60
[2017-04-25 16:54] LABS: Glucose,Whole Blood 108 mg/dL (75-99)
[2017-04-25 16:56] VITALS: BP 136/62; TEMP 97.4
[2017-04-25] MEDS ORDERED: GELATIN SPONGE,ABSORB (SMALL) 1 EACH SPONGE ONE (20:00)
[2017-04-25 20:37] LABS: Glucose,Whole Blood 103 mg/dL (75-99)
[2017-04-25] MEDS: ATORVASTATIN 80 MG TAB PO SCH (20:56)
[2017-04-26] MEDS ORDERED: ASPIRIN 81 MG CHEW PO SCH (09:00)
--- NOTE | 2017-04-26 10:42 | PN ---
Patient is seen for follow-up for end-stage renal disease. She is scheduled for hemodialysis today. Patient had cardiac catheterization yesterday which showed 2 vessel disease involving 60 to 70% stenosis in the mid LAD. Patient underwent angioplasty and stenting of the RCA. She is cleared for discharge from cardiology after dialysis today. On examination, the patient is comfortable. Blood pressure is 120/63, heart rate 67 per minute. She is afebrile. Examination of the heart S1 and S2. Examination of the lungs: Bilateral breath sounds are heard. ABDOMEN: Soft, nontender. Examination of the lower extremities shows no significant edema. VET TECH exam is grossly intact. Labs show sodium 136, hemoglobin 10.7 g/dL, potassium is not available. ASSESSMENT: 1. End-stage renal disease on hemodialysis on a Monday, , Monday schedule. The patient will be dialyzed today following which she can be discharged. 2. Non-ST elevation myocardial infarction with history of coronary artery disease, status post repeat cardiac cath and stenting of RCA. PLAN: Hemodialysis today. Patient can be discharged post dialysis.
== END 2017-04-25 21:21 | disposition home or self-care (01) | DRG 246 ==
LOC: EC 03:47 → 6SEL 05:18 → OBSVTOIN 04-22 15:07
PROVIDERS: ADMIT Family Medicine; ATTEND Family Medicine
PROC: 5A1D60Z (ICD-10-PCS; 2017-04-21)
PROC: 027034Z Dilation of Coronary Artery, One Artery with Drug-eluting Intraluminal Device, Percutaneous Approach (ICD-10-PCS; principal; 2017-04-24 11:01)
PROC: B211YZZ Fluoroscopy of Multiple Coronary Arteries using Other Contrast (ICD-10-PCS; 2017-04-24 11:01)
DX: I21.4 Non-ST elevation (NSTEMI) myocardial infarction (principal); I50.33 Acute on chronic diastolic (congestive) heart failure; N18.6 End stage renal disease; E11.22 Type 2 diabetes mellitus with diabetic chronic kidney disease; E11.42 Type 2 diabetes mellitus with diabetic polyneuropathy; I27.2 Other secondary pulmonary hypertension; I13.2 Hypertensive heart and chronic kidney disease with heart failure and with stage 5 chronic kidney disease, or end stage renal disease; D63.1 Anemia in chronic kidney disease; I25.10 Atherosclerotic heart disease of native coronary artery without angina pectoris; E78.5 Hyperlipidemia, unspecified; E78.00 Pure hypercholesterolemia, unspecified; H26.9 Unspecified cataract; F32.9 Major depressive disorder, single episode, unspecified; I25.2 Old myocardial infarction; Z87.440 Personal history of urinary (tract) infections; Z99.2 Dependence on renal dialysis; Z95.5 Presence of coronary angioplasty implant and graft; Z88.8 Allergy status to other drugs, medicaments and biological substances; Z90.49 Acquired absence of other specified parts of digestive tract; Z87.891 Personal history of nicotine dependence; Z79.82 Long term (current) use of aspirin; Z79.02 Long term (current) use of antithrombotics/antiplatelets; Z79.4 Long term (current) use of insulin; Z79.899 Other long term (current) drug therapy; Z83.3 Family history of diabetes mellitus; Z82.49 Family history of ischemic heart disease and other diseases of the circulatory system
CPT/HCPCS: 36415; 71020; 80048; 80053; 80061; 82550; 82553; 83036; 83735; 84100; 84484; 85025; 85049; 85610; 85730; 87340; 90935; 93005; 93454; 96365; 96366; 96376; 99291

== ENCOUNTER 2017-06-03 03:05 | Inpatient (IN) | payer MEDICARE, OTHER ==
[2017-06-03] MEDS ORDERED: FUROSEMIDE 10 MG/ML 4 ML VIAL IV STA (03:26)
[2017-06-03] MEDS ORDERED: NITROGLYCERIN OINT 1 INCH/GM PACKET TOPICAL STA (03:26)
[2017-06-03] MEDS ORDERED: ASPIRIN 81 MG CHEW PO STA (03:28)
--- NOTE | 2017-06-03 03:33 | ED ---
SOB HPI - General Chief Complaint: Shortness of Breath Stated Complaint: WILDA Time Seen by Provider: 06/03/17 03:15 Source: patient Mode of arrival: ambulatory Limitations: no limitations - History of Present Illness Initial Comments: This 72-year-old white female presents with a complaint of shortness of breath which is been progressively worsening over the past one week. She does have a nonproductive cough but denies any fevers. She denies any history of COPD or asthma. She states that she does have a history of CHF and fluid overload. This does feel somewhat similar. It is worse when she lies down or exerts herself. She states that she cannot even walk across her house at this time. She had some chest pressure to her midsternal and left chest earlier today. She denies any leg pain or swelling or history of DVT or PE. She does get dialysis and last time was 2 days ago. She just underwent angioplasty and stenting of her RCA last month. No other complaints or modifying factors. - Related Data Home Medications Medication Instructions Recorded Confirmed Cholecalciferol [Vitamin D3] 1,000 unit PO DAILY 03/13/16 06/03/17 Ferrous Sulfate [Iron (65 MG 325 mg PO BID 03/13/16 06/03/17 Elemental)] Insulin Glargine [Lantus] 30 unit SQ QAM 03/13/16 06/03/17 Calcium Acetate [Phoslo] 1,334 mg PO AC-TID 03/14/16 06/03/17 Insulin Aspart [NovoLOG] See Protocol SQ AC-TID 03/14/16 06/03/17 Cyanocobalamin [Vitamin B-12] 1,000 mcg PO DAILY 06/06/16 06/03/17 Folic Acid-Vit B Complex-Vit C 1 cap PO DAILY 06/06/16 06/03/17 [Nephrocaps] Citalopram Hydrobromide [CeleXA] 20 mg PO DAILY 08/05/16 06/03/17 Isosorbide Mononitrate ER [Imdur] 30 mg PO DAILY 11/19/16 06/03/17 Magnebind 300 1 tab PO AC-BID 11/19/16 06/03/17 Furosemide [Lasix] 40 mg PO BID 04/21/17 06/03/17 Lisinopril [Zestril] 10 mg PO DAILY 04/21/17 06/03/17 Meclizine [Antivert] 25 mg PO BID 04/21/17 06/03/17 Aspirin 1 tab PO DAILY 06/03/17 06/03/17 Previous Rx's Medication Instructions Recorded Carvedilol [Coreg*] 12.5 mg PO BID-W/MEALS #60 tab 08/09/16 Atorvastatin [Lipitor] 80 mg PO HS #30 tab 11/22/16 Clopidogrel [Plavix] 75 mg PO DAILY #30 tab 11/22/16 Nitroglycerin Sl Tabs [Nitrostat] 0.4 mg SUBLINGUAL Q5M PRN #25 tab 11/22/16 Allergies Allergy/AdvReac Type Severity Reaction Status Date / Time glyburide [From Diabeta] Allergy Rash/Hives Verified 06/03/17 03:09 Review of Systems ROS Statement: Those systems with pertinent positive or pertinent negative responses have been documented in the HPI. ROS Other: All systems not noted in ROS Statement are negative. Past Medical History Past Medical History: Diabetes Mellitus, Dialysis, Hyperlipidemia, Hypertension , Myocardial Infarction ([place]), Renal Disease Additional Past Medical History / Comment(s): chronic renal failure stage V with dialysis 3 times a week-lt arm fistula, IDDM, pt states "per dialysis nurse who performed EKG and told pt she had an abnormal EKG and had had a [place] in the past" but physician has never confirmed. NSTEMI 03/14/16, peripheral neuropathy bilateral feet cataracts bilaterally, UTI'S. Last Myocardial Infarction Date:: 06/07/2016 History of Any Multi-Drug Resistant Organisms: None Reported Past Surgical History: Appendectomy, Cholecystectomy, Heart Catheterization, Heart Catheterization With Stent Additional Past Surgical History / Comment(s): 03/15/16 PTCA with stent to mid LAD,06-07-16 HEART CATH STENT TO PROX RCA. Restented mid LAD 11/20/16 A/V fistula with revision L upper arm Past Anesthesia/Blood Transfusion Reactions: No Reported Reaction Date of Last Stent Placement:: 06/07/16 Past Psychological History: Depression Smoking Status: Former smoker Past Alcohol Use History: None Reported Past Drug Use History: None Reported - Past Family History Father Family Medical History: Diabetes Mellitus Additional Family Medical History / Comment(s): Father of diabetic complications in his 40's Mother Family Medical History: Cancer, Myocardial Infarction ([place]) Additional Family Medical History / Comment(s): Cancer unknown type. Mother of a NJ in her early 50's General Exam - General Exam Comments Initial Comments: GENERAL: The patient is well nourished and well hydrated. VITAL SIGNS: Heart rate, blood pressure, respiratory rate reviewed as recorded in nurse's notes. EYES: Pupils are round and reactive. Extraocular movements are intact. No conjunctival / lid redness or swelling. ENT: No external evidence of injury, swelling, or ecchymosis. Airway is patent. Throat is clear. NECK: Nontender. No swelling or evidence of injury. No subcutaneous emphysema. Trachea is midline. No thyroid mass. HEART: Regular rate and rhythm. Good peripheral pulses. LUNGS/CHEST: Breath sounds clear and equal bilaterally. No rales, rhonchi, or wheezes. No ecchymosis, subcutaneous emphysema, or tenderness. ABDOMEN: Abdomen soft without tenderness. No palpable masses or organomegaly. No peritoneal signs. No abdominal wall swelling or ecchymosis. EXTREMITIES: No extremity tenderness. Normal muscle tone and function. No thoracolumbar tenderness. NEUROLOGIC: Sensation is grossly intact. Cranial nerve exam reveals face is symmetrical, tongue is midline, speech is clear. SKIN: No abrasions or ecchymosis is noted. No induration or masses noted. PSYCHIATRIC: Alert and oriented. Appropriate behavior and judgment. Limitations: no limitations Course Vital Signs 06/03/17 06/03/17 06/03/17 03:07 04:09 04:11 Temperature 98.3 F Pulse Rate 81 72 72 Respiratory 24 22 22 Rate Blood Pressure 186/80 153/69 155/63 O2 Sat by Pulse 97 98 99 Oximetry 06/03/17 06/03/17 04:16 05:05 Temperature 97.4 F L Pulse Rate 72 73 Respiratory 22 18 Rate Blood Pressure 135/60 132/61 O2 Sat by Pulse 99 100 Oximetry Medical Decision Making - Medical Decision Making The patient was seen and examined. All diagnostics were reviewed. She is placed on a junior paralegal and no ectopy is identified. An IV is established. An EKG is done and this does show a normal sinus rhythm. There is some ST depression in the inferior and lateral leads. This is in contrast to EKG from last month. There is no ST elevation. The FL interval is 194, QRS duration is 98, and the QTc interval is 509. The chest x-ray does show evidence of fluid overload/congestive heart failure. The laboratory shows severe elevation of the BNP. The troponin is normal. The creatinine is significantly elevated. It is felt as though she would benefit from admission to the hospital and further dialysis to remove the fluid. It does appear that she has some EKG changes as well and cardiology will be consult at. I do have a phone call out for the grading machine operator at this time and we are currently awaiting their call back. She is in no distress whatsoever on recheck doing a crossword puzzle. The case will be discussed with the internal medicine service in the near future as well. - Lab Data Result diagrams: 06/03/17 03:17 06/03/17 03:17 Lab Results 06/03/17 06/03/17 06/03/17 Range/Units 03:17 03:17 03:17 WBC 7.8 (3.8-10.6) k/uL RBC 3.17 L (3.80-5.40) m/uL Hgb 10.0 L (11.4-16.0) gm/dL Hct 29.8 L (34.0-46.0) % MCV 93.9 D (80.0-100.0) fL MCH 31.4 (25.0-35.0) pg MCHC 33.4 (31.0-37.0) g/dL RDW 15.3 (11.5-15.5) % Plt Count 247 (150-450) k/uL Neutrophils % 68 % Lymphocytes % 14 % Monocytes % 7 % Eosinophils % 8 % Basophils % 1 % Neutrophils # 5.3 (1.3-7.7) k/uL Lymphocytes # 1.1 (1.0-4.8) k/uL Monocytes # 0.6 (0-1.0) k/uL Eosinophils # 0.6 (0-0.7) k/uL Basophils # 0.1 (0-0.2) k/uL PT (9.0-12.0) sec INR (<1.2) APTT (22.0-30.0) sec Sodium 134 L (137-145) mmol/L Potassium 4.4 (3.5-5.1) mmol/L Chloride 95 L (98-107) mmol/L Carbon Dioxide 24 (22-30) mmol/L Anion Gap 15 mmol/L BUN 41 H (7-17) mg/dL Creatinine 5.30 H* (0.52-1.04) mg/dL Est GFR (MDRD) Af Amer 10 (>60 ml/min/1.73 sqM) Est GFR (MDRD) Non-Af 8 (>60 ml/min/1.73 sqM) Glucose 363 H (74-99) mg/dL Calcium 9.4 (8.4-10.2) mg/dL Total Bilirubin 0.3 (0.2-1.3) mg/dL AST 31 (14-36) U/L ALT 48 (9-52) U/L Alkaline Phosphatase 120 (38-126) U/L Total Creatine Kinase 64 (30-135) U/L CK-MB (CK-2) 0.9 (0.0-2.4) ng/mL CK-MB (CK-2) Rel Index 1.4 Troponin I 0.025 (0.000-0.034) ng/mL NT-Pro-B Natriuret Pep pg/mL Total Protein 6.3 (6.3-8.2) g/dL Albumin 3.7 (3.5-5.0) g/dL 06/03/17 06/03/17 Range/Units 03:17 03:17 WBC (3.8-10.6) k/uL RBC (3.80-5.40) m/uL Hgb (11.4-16.0) gm/dL Hct (34.0-46.0) % MCV (80.0-100.0) fL MCH (25.0-35.0) pg MCHC (31.0-37.0) g/dL RDW (11.5-15.5) % Plt Count (150-450) k/uL Neutrophils % % Lymphocytes % % Monocytes % % Eosinophils % % Basophils % % Neutrophils # (1.3-7.7) k/uL Lymphocytes # (1.0-4.8) k/uL Monocytes # (0-1.0) k/uL Eosinophils # (0-0.7) k/uL Basophils # (0-0.2) k/uL PT 9.8 (9.0-12.0) sec INR 1.0 (<1.2) APTT 21.4 L (22.0-30.0) sec Sodium (137-145) mmol/L Potassium (3.5-5.1) mmol/L Chloride (98-107) mmol/L Carbon Dioxide (22-30) mmol/L Anion Gap mmol/L BUN (7-17) mg/dL Creatinine (0.52-1.04) mg/dL Est GFR (MDRD) Af Amer (>60 ml/min/1.73 sqM) Est GFR (MDRD) Non-Af (>60 ml/min/1.73 sqM) Glucose (74-99) mg/dL Calcium (8.4-10.2) mg/dL Total Bilirubin (0.2-1.3) mg/dL AST (14-36) U/L ALT (9-52) U/L Alkaline Phosphatase (38-126) U/L Total Creatine Kinase (30-135) U/L CK-MB (CK-2) (0.0-2.4) ng/mL CK-MB (CK-2) Rel Index Troponin I (0.000-0.034) ng/mL NT-Pro-B Natriuret Pep 81970 pg/mL Total Protein (6.3-8.2) g/dL Albumin (3.5-5.0) g/dL Disposition Clinical Impression: Chest pain, Prolonged QT interval, Dyspnea, Fluid overload, Acute on chronic renal failure, Congestive heart failure, Anemia Disposition: ADMITTED IP TO THIS [facility] Condition: Fair Time of Disposition: 05:32 Decision Date: 06/03/17 Decision Time: 05:32
[2017-06-03] MEDS ORDERED: NITROGLYCERIN-D5W PMX 50 MG in DEXTROSE/WATER 1 250ML.BAG IV ONE (03:39)
[2017-06-03 03:46] LABS: Basophils # (A) 0.1 k/uL (0-0.2); Basophils % (A) 1 %; CH 30.1; CHCM 32.2; Eosinophils # (A) 0.6 k/uL (0-0.7); Eosinophils % (A) 8 %; HCT 29.8 % (34.0-46.0); HDW 2.44; Luc # (Auto) 0.18; Luc % (Auto) 2; Lymphocytes # (A) 1.1 k/uL (1.0-4.8); Lymphocytes % (A) 14 %; MCH 31.4 pg (25.0-35.0); MCHC 33.4 g/dL (31.0-37.0); Mean Platelet Volume 8.1; Monocytes # (A) 0.6 k/uL (0-1.0); Monocytes % (A) 7 %; Neutrophils # (A) 5.3 k/uL (1.3-7.7); Neutrophils % (A) 68 %; RBC 3.17 m/uL (3.80-5.40); RDW 15.3 % (11.5-15.5); WBC 7.8 k/uL (3.8-10.6); WBC (Perox) 7.56
[2017-06-03 03:49] LABS: MCV 93.9 fL (80.0-100.0)
[2017-06-03 04:02] LABS: Prothrombin Time 9.8 sec (9.0-12.0)
[2017-06-03 04:04] LABS: Potassium 4.4 mmol/L (3.5-5.1); Total Protein 6.3 g/dL (6.3-8.2)
--- NOTE | 2017-06-03 04:04 | XR ---
EXAM: XR Chest, 2 Views CLINICAL HISTORY: Reason: difficulty breathing TECHNIQUE: Frontal and lateral views of the chest. COMPARISON: Chest x-ray dated 04/21/2017 FINDINGS: Lungs: Pulmonary vascular congestion again seen, slightly more conspicuous on the study from the prior. Pleural space: Trace pleural effusions are likely present. No pneumothorax. Heart: The heart is stable in size. Mediastinum: Unremarkable. Bones/joints: Unremarkable. IMPRESSION: Pulmonary vascular congestion with trace pleural effusions, slight interval worsening since prior study. Again correlate clinically for CHF.
[2017-06-03 04:06] LABS: Calcium 9.4 mg/dL (8.4-10.2); Total Bilirubin 0.3 mg/dL (0.2-1.3)
[2017-06-03 04:09] LABS: Partial Thromboplastin Time 21.4 sec (22.0-30.0)
[2017-06-03 04:21] LABS: Creatine Kinase MB 0.9 ng/mL (0.0-2.4); Troponin I 0.025 ng/mL (0.000-0.034)
[2017-06-03] MEDS ORDERED: HEPARIN SODIUM,PORCINE 5,000 UNIT/ML 1 ML VIAL IV PRN (05:33)
[2017-06-03] MEDS ORDERED: HEPARIN SODIUM,PORCINE 5,000 UNIT/ML 1 ML VIAL IV ONE (05:33)
[2017-06-03] MEDS ORDERED: NITROGLYCERIN SL TABS 0.4 MG TAB SUBLINGUAL PRN (05:33)
[2017-06-03] MEDS: HEPARIN SODIUM,PORCINE/D5W PMX 25,000 UNIT in DEXTROSE/WATER 1 500ML.BAG IV SCH (06:15)
[2017-06-03 07:00] LABS: Glucose,Whole Blood 271 mg/dL (75-99)
[2017-06-03] MEDS: CALCIUM ACETATE 667 MG CAP PO SCH ×3 (09:11→17:15)
[2017-06-03] MEDS: CALCIUM CARB-MAG CARB-FOLIC 1 EACH TAB PO SCH ×2 (09:11→17:15)
[2017-06-03] MEDS: INSULIN LISPRO (humaLOG) 300 UNIT/3 ML VIAL SQ SCH ×4 (09:12→21:07)
[2017-06-03] MEDS: CARVEDILOL 12.5 MG TAB PO SCH ×2 (09:12→21:11)
[2017-06-03] MEDS: CITALOPRAM HYDROBROMIDE 20 MG TAB PO SCH (09:14)
[2017-06-03 09:15] LABS: Glucose,Whole Blood 245 mg/dL (75-99)
[2017-06-03] MEDS: CLOPIDOGREL 75 MG TAB PO SCH (09:15)
[2017-06-03] MEDS: ISOSORBIDE MONONITRATE ER 30 MG TAB.ER.24H PO SCH (09:15)
[2017-06-03] MEDS: FUROSEMIDE 40 MG TAB PO SCH ×2 (09:15→16:01)
[2017-06-03] MEDS ORDERED: DARBEPOETIN ALFA 40 MCG/0.4 ML SYRINGE SQ SCH (09:15)
[2017-06-03] MEDS: FERROUS SULFATE 325 MG TAB PO SCH ×2 (09:15→21:11)
[2017-06-03] MEDS: INSULIN GLARGINE 100 UNIT/ML 10 ML VIAL SQ SCH (09:15)
[2017-06-03] MEDS: MECLIZINE 25 MG TAB PO SCH ×2 (09:16→21:11)
[2017-06-03] MEDS: LISINOPRIL 10 MG TAB PO SCH (09:16)
--- NOTE | 2017-06-03 09:45 | P.NPCON ---
History of Present Illness - Reason for Consult end stage renal disease - History of Present Illness Reason for consultation: End-stage renal disease History of present illness: Patient is a 72-year-old female seen in renal consultation for end- stage renal disease. She is maintained on hemodialysis on a Monday schedule via left upper extremity AV fistula. Patient did not miss any dialysis treatments as an outpatient. Patient presented to the hospital with dyspnea which she states has been progressively getting worse over the last month or so. She is compliant with hemodialysis but is not able to tolerate more than 3 L of ultrafiltration due to cramping. Patient states last that her dyspnea is significantly worse and she was unable to lay flat. She did for presented to the hospital. Chest x-ray was suggestive of vascular congestion. Patient states she currently feels better with oxygen support. Denies chest pain. No vomiting or diarrhea. She does have history of coronary disease and had a stent placed to the RCA in April 2017. Oral intake is good. No fever or chills. Hemodynamically stable. Vital signs are stable. General: The patient appeared well nourished and normally developed. HEENT: Head exam is unremarkable. Neck is without jugular venous distension. LUNGS: Lungs are clear to auscultation and percussion. Breath sounds decreased. HEART: Rate and Rhythm are regular. First and second heart sounds normal. No murmurs, rubs or gallops. ABDOMEN: Abdominal exam reveals normal bowel sounds. Non-tender and non- distended. No evidence of peritonitis. EXTREMITITES: Trace edema. Past Medical History Past Medical History: Diabetes Mellitus, Dialysis, Hyperlipidemia, Hypertension , Myocardial Infarction ([place]), Renal Disease Additional Past Medical History / Comment(s): chronic renal failure stage V with dialysis 3 times a week-lt arm fistula, IDDM, pt states "per dialysis nurse who performed EKG and told pt she had an abnormal EKG and had had a ID in the past" but physician has never confirmed. NSTEMI 03/14/16, peripheral neuropathy bilateral feet cataracts bilaterally, UTI'S. Last Myocardial Infarction Date:: 06/07/2016 History of Any Multi-Drug Resistant Organisms: None Reported Past Surgical History: Appendectomy, Cholecystectomy, Heart Catheterization, Heart Catheterization With Stent Additional Past Surgical History / Comment(s): 03/15/16 PTCA with stent to mid LAD,06-07-16 HEART CATH STENT TO PROX RCA. Restented mid LAD 11/20/16 A/V fistula with revision L upper arm Past Anesthesia/Blood Transfusion Reactions: No Reported Reaction Date of Last Stent Placement:: 06/07/16 Past Psychological History: Depression Smoking Status: Former smoker Past Alcohol Use History: None Reported Past Drug Use History: None Reported - Past Family History Father Family Medical History: Diabetes Mellitus Additional Family Medical History / Comment(s): Father of diabetic complications in his 40's Mother Family Medical History: Cancer, Myocardial Infarction (ID) Additional Family Medical History / Comment(s): Cancer unknown type. Mother of a ID in her early 50's Medications and Allergies Home Medications Medication Instructions Recorded Confirmed Type Cholecalciferol [Vitamin D3] 1,000 unit PO DAILY 03/13/16 06/03/17 History Ferrous Sulfate [Iron (65 MG 325 mg PO BID 03/13/16 06/03/17 History Elemental)] Insulin Glargine [Lantus] 30 unit SQ QAM 03/13/16 06/03/17 History Calcium Acetate [Phoslo] 1,334 mg PO AC-TID 03/14/16 06/03/17 History Insulin Aspart [NovoLOG] See Protocol SQ AC-TID 03/14/16 06/03/17 History Cyanocobalamin [Vitamin B-12] 1,000 mcg PO DAILY 06/06/16 06/03/17 History Folic Acid-Vit B Complex-Vit C 1 cap PO DAILY 06/06/16 06/03/17 History [Nephrocaps] Citalopram Hydrobromide [CeleXA] 20 mg PO DAILY 08/05/16 06/03/17 History Isosorbide Mononitrate ER [Imdur] 30 mg PO DAILY 11/19/16 06/03/17 History Magnebind 300 1 tab PO AC-BID 11/19/16 06/03/17 History Furosemide [Lasix] 40 mg PO BID 04/21/17 06/03/17 History Lisinopril [Zestril] 10 mg PO DAILY 04/21/17 06/03/17 History Meclizine [Antivert] 25 mg PO BID 04/21/17 06/03/17 History Aspirin 1 tab PO DAILY 07/15/17 07/15/17 History Allergies Allergy/AdvReac Type Severity Reaction Status Date / Time glyburide [From Diabeta] Allergy Rash/Hives Verified 06/03/17 03:09 Physical Exam Vitals: Vital Signs Temp Pulse Resp BP Pulse Ox 06/03/17 09:20 73 136/61 97 06/03/17 09:10 65 136/61 06/03/17 09:00 68 136/61 96 06/03/17 08:50 67 136/61 91 L 06/03/17 08:40 66 136/61 98 06/03/17 08:30 67 125/62 94 L 06/03/17 08:20 67 125/62 94 L 06/03/17 08:10 68 125/62 95 06/03/17 08:00 67 125/62 96 06/03/17 07:50 98.2 F 67 20 125/62 98 06/03/17 07:40 64 97 06/03/17 07:30 74 96 06/03/17 07:20 68 137/66 98 06/03/17 07:10 75 98 06/03/17 07:00 65 99 06/03/17 06:50 73 96 06/03/17 06:49 96 06/03/17 06:25 98.0 F 70 22 137/63 94 L 06/03/17 05:54 99.1 F 73 18 139/63 97 06/03/17 05:33 94 L 06/03/17 05:05 97.4 F L 73 18 132/61 100 06/03/17 04:16 72 22 135/60 99 06/03/17 04:11 72 22 155/63 99 06/03/17 04:09 72 22 153/69 98 06/03/17 03:07 98.3 F 81 24 186/80 97 Intake and Output 06/02/17 06/03/17 06/03/17 22:59 06:59 14:59 Intake Total 43 Balance 43 Intake: IV 20 0.9 at 20 ml/hr 20 Intake, IV Titration 23 Amount Heparin Sodium,Porcine/ 20 D5w Pmx 25,000 unit In Dextrose/Water 1 500ml. bag @ 11.92 UNITS/KG/HR 20 mls/hr IV [facility] Rx #:[id number] Nitroglycerin-D5w Pmx 50 3 mg In Dextrose/Water 1 250ml.bag @ 20 MCG/MIN 6 mls/hr IV .Q24H [facility] Rx#: [id number] Other: Weight 83.915 kg Results - Lab Results Most recent lab results Calcium 9.4 mg/dL (8.4-10.2) 06/03/17 03:17 06/03/17 03:17 06/03/17 03:17 Assessment and Plan Plan: Assessment: #1. End-stage renal disease maintained on hemodialysis on a Monday schedule via left upper extremity AV fistula. #2. Volume overload. #3. Diastolic CHF with moderate mitral regurgitation. #4. History of coronary disease status post stent placed to the RCA in April 2017. #5. Chronic kidney disease mineral bone disease. #5. Anemia of chronic kidney disease. Plan: Hemodialysis today with goal 3-4 L ultrafiltration. Start Aranesp. Maintain PhosLo with meals. Wean nitro drip as tolerated. Cardiology recommendations pending. Thank you for the consultation. I will continue to follow the patient with you during her hospital stay.
[2017-06-03 11:14] LABS: Mean Platelet Volume 7.7
[2017-06-03 11:36] LABS: Creatine Kinase MB 1.3 ng/mL (0.0-2.4)
[2017-06-03 11:41] LABS: Troponin I 0.074 ng/mL (0.000-0.034)
[2017-06-03 12:34] LABS: Glucose,Whole Blood 158 mg/dL (75-99)
[2017-06-03] MEDS: CYANOCOBALAMIN 500 MCG TAB PO SCH (12:35)
[2017-06-03] MEDS: CHOLECALCIFEROL 1,000 UNIT TAB PO SCH (12:35)
[2017-06-03] MEDS: FOLIC ACID-VIT B COMPLEX-VIT C 1 CAP PO SCH (12:35)
--- NOTE | 2017-06-03 13:12 | CONS ---
Margarita Bloom is a 72-year-old lady with endstage renal disease who is well known to me. I had performed stenting of her right coronary artery in the past and as recently as April of this year, she underwent stenting RCA in the ostium performed by Dr. Chalo Hernandez. She came into the hospital because of increasing shortness of breath, weight gain and obviously volume-overloaded. She is going to have dialysis today. She has no chest discomfort to suggest angina and her initial troponin is unremarkable. Apparently, she did not miss any dialysis treatments but they were not taking much fluid out because she was complaining of cramping. However, she is resting comfortably without symptoms, planning on having dialysis today. PAST MEDICAL HISTORY: 1. Diabetes mellitus with CKD endstage renal disease on dialysis 3 times a week. 2. Hypertension. 3. Hyperlipidemia. 4. CAD with previous LAD stenting and also recent ostium of RCA was stented by Dr. Chalo Hernandez 6 weeks ago. Medications at home include a vitamin supplement, iron supplement, calcium, folic acid, Imdur, Zestril, meclizine, aspirin and she also takes Plavix 75 mg daily. ALLERGIES: Glyburide. On examination, blood pressure is 130/70, pulse rate is 70 per minute. HEENT: Unremarkable. Fundus was not examined by me. Neck is supple, there is JVD of at least 1 to 2 cm. No carotid bruit. Heart exam reveals S1, S2 with a systolic murmur at the base. Lungs reveal diminished air entry at both bases. Abdomen is soft, nontender. Lower extremities reveal 1+ edema. Diminished pulses. Central nervous system grossly within normal limits. EKG revealed a sinus mechanism with a nonspecific ST abnormality, cannot exclude ischemia. Laboratory data revealed that her initial troponin was 0.02. BNP is elevated at over 14,000. IMPRESSION: 1. Volume overload secondary to inadequate/incomplete dialysis because of patient's symptoms. 2. Coronary artery disease with previous stenting in heart failure at this time. 3. Troponin elevation probably represents renal dysfunction and heart failure picture rather than a severe myocardial injury. 4. Diabetes mellitus. 5. Hypertension. 6. Recent PCI of RCA in April of this year. RECOMMENDATIONS: I am recommending that we continue her current medications. We will perform additional troponin levels. Agree with dialysis. Continue aspirin and Plavix on a regular basis and the aspirin will be 81 mg daily. I will review her angiograms but no aggressive intervention is advised at this time. Prognosis remains guarded. LEA
[2017-06-03 14:09] LABS: Hemoglobin A1C 8.5 % (4.2-6.1)
[2017-06-03 15:54] LABS: Creatine Kinase MB 1.2 ng/mL (0.0-2.4)
[2017-06-03 16:07] LABS: Troponin I 0.081 ng/mL (0.000-0.034)
[2017-06-03 16:58] LABS: Glucose,Whole Blood 110 mg/dL (75-99)
[2017-06-03 21:03] LABS: Glucose,Whole Blood 117 mg/dL (75-99)
[2017-06-03] MEDS: ATORVASTATIN 80 MG TAB PO SCH (21:11)
[2017-06-04 06:04] LABS: Glucose,Whole Blood 122 mg/dL (75-99)
[2017-06-04] MEDS: HEPARIN SODIUM,PORCINE/D5W PMX 25,000 UNIT in DEXTROSE/WATER 1 500ML.BAG IV SCH (07:05)
[2017-06-04] MEDS: INSULIN LISPRO (humaLOG) 300 UNIT/3 ML VIAL SQ SCH ×4 (07:05→21:12)
[2017-06-04] MEDS: CALCIUM ACETATE 667 MG CAP PO SCH ×3 (07:05→17:18)
[2017-06-04] MEDS: CARVEDILOL 12.5 MG TAB PO SCH ×2 (07:05→17:18)
[2017-06-04] MEDS: CALCIUM CARB-MAG CARB-FOLIC 1 EACH TAB PO SCH ×2 (07:05→17:18)
[2017-06-04 07:34] LABS: Mean Platelet Volume 7.4
[2017-06-04 07:54] LABS: Cholesterol 104 mg/dL (<200); HDL Cholesterol 48 mg/dL (40-60); Triglycerides 74 mg/dL (<150)
[2017-06-04] MEDS: INSULIN GLARGINE 100 UNIT/ML 10 ML VIAL SQ SCH (08:05)
[2017-06-04] MEDS: FUROSEMIDE 40 MG TAB PO SCH ×2 (08:05→15:57)
[2017-06-04] MEDS: MECLIZINE 25 MG TAB PO SCH ×2 (08:05→21:12)
[2017-06-04] MEDS: ISOSORBIDE MONONITRATE ER 30 MG TAB.ER.24H PO SCH (08:05)
[2017-06-04] MEDS: CLOPIDOGREL 75 MG TAB PO SCH (08:05)
[2017-06-04] MEDS: LISINOPRIL 10 MG TAB PO SCH (08:05)
[2017-06-04] MEDS: ASPIRIN 81 MG CHEW PO SCH (08:05)
[2017-06-04] MEDS: CITALOPRAM HYDROBROMIDE 20 MG TAB PO SCH (08:05)
[2017-06-04] MEDS: FERROUS SULFATE 325 MG TAB PO SCH ×2 (08:05→21:12)
[2017-06-04 08:26] LABS: Hepatitis B Surface Ag Index 0.05
[2017-06-04 08:44] LABS: Hepatitis B Surface Antibody POSITIVE (Negative)
--- NOTE | 2017-06-04 08:52 | P.PN ---
Subjective Patient is seen in follow-up for end-stage renal disease. She is maintained on hemodialysis on a Monday schedule. She has a left upper extremity AV fistula. Patient presented with dyspnea and was noted to have fluid overload on chest x-ray. She underwent hemodialysis yesterday with over 3 L ultrafiltration. She feels better today. Denies chest pain. She does have history of coronary artery disease and had intervention to the right coronary in April 2017. Vital signs are stable. General: The patient appeared well nourished and normally developed. HEENT: Head exam is unremarkable. Neck is without jugular venous distension. LUNGS: Lungs are clear to auscultation and percussion. Breath sounds decreased. HEART: Rate and Rhythm are regular. First and second heart sounds normal. No murmurs, rubs or gallops. ABDOMEN: Abdominal exam reveals normal bowel sounds. Non-tender and non- distended. No evidence of peritonitis. EXTREMITITES: No clubbing, cyanosis, or edema. Objective - Vital Signs Vital signs: Vital Signs Temp 97.9 F 06/04/17 08:00 Pulse 60 06/04/17 08:00 Resp 18 06/04/17 08:00 BP 146/63 06/04/17 08:00 Pulse Ox 94 L 06/04/17 08:00 Intake & Output 06/03/17 06/04/17 06/04/17 18:59 06:59 18:59 Intake Total 552.167 160 423 Output Total 450 30 Balance 102.167 130 423 Weight 89.6 kg 84.9 kg Intake: IV 120 160 0.9 at 20 ml/hr 120 160 Intake, IV Titration 372.167 303 Amount Heparin Sodium,Porcine/ 313.667 303 D5w Pmx 25,000 unit In Dextrose/Water 1 500ml. bag @ 11.92 UNITS/KG/HR 20 mls/hr IV .Q24H [facility] Rx #:[id number] Nitroglycerin-D5w Pmx 50 58.5 mg In Dextrose/Water 1 250ml.bag @ 20 MCG/MIN 6 mls/hr IV .Q24H [facility] Rx#: [id number] Oral 60 120 Output: Urine 450 30 Other: # Voids 1 1 # Bowel Movements 1 - Labs CBC & Chem 7: 06/04/17 07:01 06/03/17 03:17 Labs: Abnormal Lab Results - Last 24 Hours (Table) 06/03/17 06/03/17 06/03/17 Range/Units 09:13 10:50 10:50 APTT 61.4 H (22.0-30.0) sec POC Glucose (mg/dL) 245 H (75-99) mg/dL Hemoglobin A1c 8.5 H (4.2-6.1) % Phosphorus (2.5-4.5) mg/dL Troponin I (0.000-0.034) ng/mL Hep Bs Antibody (Negative) 06/03/17 06/03/17 06/03/17 Range/Units 10:50 10:50 12:33 APTT (22.0-30.0) sec POC Glucose (mg/dL) 158 H (75-99) mg/dL Hemoglobin A1c (4.2-6.1) % Phosphorus 5.4 H (2.5-4.5) mg/dL Troponin I 0.074 H* (0.000-0.034) ng/mL Hep Bs Antibody (Negative) 06/03/17 06/03/17 06/03/17 Range/Units 15:10 16:46 18:00 APTT (22.0-30.0) sec POC Glucose (mg/dL) 110 H (75-99) mg/dL Hemoglobin A1c (4.2-6.1) % Phosphorus (2.5-4.5) mg/dL Troponin I 0.081 H* 0.098 H* (0.000-0.034) ng/mL Hep Bs Antibody (Negative) 06/03/17 06/04/17 06/04/17 Range/Units 21:02 06:02 07:01 APTT (22.0-30.0) sec POC Glucose (mg/dL) 117 H 122 H (75-99) mg/dL Hemoglobin A1c (4.2-6.1) % Phosphorus (2.5-4.5) mg/dL Troponin I (0.000-0.034) ng/mL Hep Bs Antibody POSITIVE H (Negative) 06/04/17 06/04/17 Range/Units 07:01 07:01 APTT 52.7 H (22.0-30.0) sec POC Glucose (mg/dL) (75-99) mg/dL Hemoglobin A1c (4.2-6.1) % Phosphorus (2.5-4.5) mg/dL Troponin I 0.085 H* (0.000-0.034) ng/mL Hep Bs Antibody (Negative) Microbiology - Last 24 Hours (Table) 06/03/17 03:17 Blood Culture - Preliminary Blood No Growth after 24 hours Assessment and Plan Plan: Assessment: #1. End-stage renal disease maintained on hemodialysis on a Monday schedule via left upper extremity AV fistula. #2. Volume overload. Improved. #3. Diastolic CHF with moderate mitral regurgitation. #4. History of coronary disease status post stent placed to the RCA in April 2017. Cardiology following. #5. Chronic kidney disease mineral bone disease. #5. Anemia of chronic kidney disease. Plan: Hemodialysis Monday with goal 3-4 L ultrafiltration. Maintain Aranesp. Maintain PhosLo with meals.
[2017-06-04] MEDS ORDERED: ASPIRIN 325 MG TAB PO SCH (09:00)
--- NOTE | 2017-06-04 11:53 | P.HPIM ---
History of Present Illness H&P Date: 06/03/17 Chief Complaint: Chest pain and shortness of breath Mrs. Bloom is a 72-year-old female with a past medical history of diabetes mellitus ESRD on hemodialysis hypertension hyperlipidemia coronary artery disease status post stenting coming into the hospital with a chief complaint of shortness of breath and chest discomfort. Patient's symptoms have been progressively worsening over the past couple of weeks. Patient has end-stage renal disease and in hemodialysis and is consistent in getting them but was not able to tolerate more than 3 L of alcohol filtration due to the side effect of cramping for the past 1 month. So her dyspnea has been significantly worsened that she came in to the hospital. Patient did get a chest x-ray that was positive for vascular congestion so was given 40 IV Lasix and placed on oxygen after which her symptoms did improve to some extent. Patient states it is rather a chest discomfort due to her difficulty in breathing rather than a chest pain that she has. Patient denies having any palpitations syncope loss of consciousness. No reported fevers. No cough. Patient also complains of progressively worsening lower extremity edema. Patient still makes urine and no symptoms of urinary tract infection. She denies having any other active complaints. Patient does have significant history of coronary artery disease status post stenting and follows with Dr. KORIN Hernandez. Patient is getting serial troponins and EKG. She is currently in the ICU as [facility] . Review of Systems REVIEW OF SYSTEMS: PSYCH: Normal psychiatric exam NEURO:No c/o weakness of the extremties, No facial droop, No speech abnormalities. VASCULAR: Lower extremity edema HEMATOLOGIC: No history of easy bleeding and bruising . No recent infections . RESPIRATORY: No cough, No SOB, No chest discomfort. IMMUNE: No infections INTEGUMENT: no rashes OPHTHALMOLOGIC: No blurry vision and no eye discharge : No dysuria or hematuria CARDIAC: No chest pain, paroxysmal nocturnal dyspnea MUSCULOSKELETAL : No Aches or pains in the joints or muscles. GI: No abdominal pain, Nausea or vomiting. No constipation or diarrhea. All 13 review of systems are done and negative except for the ones mentioned above Past Medical History Past Medical History: Diabetes Mellitus, Dialysis, Hyperlipidemia, Hypertension , Myocardial Infarction (RI), Renal Disease Additional Past Medical History / Comment(s): chronic renal failure stage V with dialysis 3 times a week-lt arm fistula, IDDM, pt states "per dialysis nurse who performed EKG and told pt she had an abnormal EKG and had had a RI in the past" but physician has never confirmed. NSTEMI 03/14/16, peripheral neuropathy bilateral feet cataracts bilaterally, UTI'S. Last Myocardial Infarction Date:: 06/07/2016 History of Any Multi-Drug Resistant Organisms: None Reported Past Surgical History: Appendectomy, Cholecystectomy, Heart Catheterization, Heart Catheterization With Stent Additional Past Surgical History / Comment(s): 03/15/16 PTCA with stent to mid LAD,06-07-16 HEART CATH STENT TO PROX RCA. Restented mid LAD 11/20/16 A/V fistula with revision L upper arm Past Anesthesia/Blood Transfusion Reactions: No Reported Reaction Date of Last Stent Placement:: 06/07/16 Past Psychological History: Depression Smoking Status: Former smoker Past Alcohol Use History: None Reported Past Drug Use History: None Reported - Past Family History Father Family Medical History: Diabetes Mellitus Additional Family Medical History / Comment(s): Father of diabetic complications in his 40's Mother Family Medical History: Cancer, Myocardial Infarction (RI) Additional Family Medical History / Comment(s): Cancer unknown type. Mother of a RI in her early 50's Medications and Allergies Home Medications Medication Instructions Recorded Confirmed Type Cholecalciferol [Vitamin D3] 1,000 unit PO DAILY 03/13/16 06/03/17 History Ferrous Sulfate [Iron (65 MG 325 mg PO BID 03/13/16 06/03/17 History Elemental)] Calcium Acetate [Phoslo] 1,334 mg PO AC-TID 03/14/16 06/03/17 History Insulin Aspart [NovoLOG] See Protocol SQ AC-TID 03/14/16 06/03/17 History Cyanocobalamin [Vitamin B-12] 1,000 mcg PO DAILY 06/06/16 06/03/17 History Folic Acid-Vit B Complex-Vit C 1 cap PO DAILY 06/06/16 06/03/17 History [Nephrocaps] Citalopram Hydrobromide [CeleXA] 20 mg PO DAILY 08/05/16 06/03/17 History Isosorbide Mononitrate ER [Imdur] 30 mg PO DAILY 11/19/16 06/03/17 History Magnebind 300 1 tab PO AC-BID 11/19/16 06/03/17 History Furosemide [Lasix] 40 mg PO DAILY 04/21/17 06/03/17 History Lisinopril [Zestril] 10 mg PO DAILY 04/21/17 06/03/17 History Meclizine [Antivert] 25 mg PO BID PRN 04/21/17 06/03/17 History Aspirin 81 mg PO DAILY 06/03/17 06/03/17 History Insulin Glargine,Hum.rec.anlog 30 unit SQ DAILY 06/03/17 06/03/17 History [Lantus Solostar] Allergies Allergy/AdvReac Type Severity Reaction Status Date / Time glyburide [From Diabeta] Allergy Rash/Hives Verified 06/03/17 10:53 Physical Exam Vitals: Vital Signs Temp Pulse Pulse Pulse Resp BP BP 06/03/17 14:00 65 28 H 06/03/17 13:30 60 25 H 06/03/17 13:00 72 30 H 123/51 06/03/17 12:30 73 30 H 123/51 06/03/17 12:00 60 68 68 30 H 123/51 06/03/17 11:30 97.8 F 67 18 129/55 06/03/17 11:00 72 34 H 129/55 06/03/17 10:30 63 15 156/68 06/03/17 10:00 65 11 L 156/68 06/03/17 09:30 73 14 136/61 06/03/17 09:20 73 136/61 06/03/17 09:10 65 136/61 06/03/17 09:00 68 136/61 06/03/17 08:50 67 136/61 06/03/17 08:40 66 136/61 06/03/17 08:30 67 125/62 06/03/17 08:20 67 125/62 06/03/17 08:10 68 125/62 06/03/17 08:00 67 68 68 20 125/62 06/03/17 07:50 98.2 F 67 20 125/62 06/03/17 07:40 64 06/03/17 07:30 74 06/03/17 07:20 68 137/66 06/03/17 07:10 75 06/03/17 07:00 65 06/03/17 06:50 73 06/03/17 06:49 06/03/17 06:25 98.0 F 70 22 137/63 06/03/17 05:58 98.2 F 68 68 16 156/68 06/03/17 05:54 99.1 F 73 18 139/63 06/03/17 05:33 06/03/17 05:05 97.4 F L 73 18 132/61 06/03/17 04:16 72 22 135/60 06/03/17 04:11 72 22 155/63 06/03/17 04:09 72 22 153/69 06/03/17 03:07 98.3 F 81 24 186/80 Pulse Ox 06/03/17 14:00 94 L 06/03/17 13:30 96 06/03/17 13:00 94 L 06/03/17 12:30 96 06/03/17 12:00 99 06/03/17 11:30 98 06/03/17 11:00 06/03/17 10:30 96 06/03/17 10:00 96 06/03/17 09:30 96 06/03/17 09:20 97 06/03/17 09:10 06/03/17 09:00 96 06/03/17 08:50 91 L 06/03/17 08:40 98 06/03/17 08:30 94 L 06/03/17 08:20 94 L 06/03/17 08:10 95 06/03/17 08:00 96 06/03/17 07:50 98 06/03/17 07:40 97 06/03/17 07:30 96 06/03/17 07:20 98 06/03/17 07:10 98 06/03/17 07:00 99 06/03/17 06:50 96 06/03/17 06:49 96 06/03/17 06:25 94 L 06/03/17 05:58 97 06/03/17 05:54 97 06/03/17 05:33 94 L 06/03/17 05:05 100 06/03/17 04:16 99 06/03/17 04:11 99 06/03/17 04:09 98 06/03/17 03:07 97 Intake and Output 06/02/17 06/03/17 06/03/17 22:59 06:59 14:59 Intake Total 318.5 Output Total 300 Balance 18.5 Intake: IV 100 0.9 at 20 ml/hr 100 Intake, IV Titration 158.5 Amount Heparin Sodium,Porcine/ 100 D5w Pmx 25,000 unit In Dextrose/Water 1 500ml. bag @ 11.92 UNITS/KG/HR 20 mls/hr IV .Q24H [facility] Rx #:[id number] Nitroglycerin-D5w Pmx 50 58.5 mg In Dextrose/Water 1 250ml.bag @ 20 MCG/MIN 6 mls/hr IV .Q24H [facility] Rx#: [id number] Oral 60 Output: Urine 300 Other: # Voids 1 # Bowel Movements 1 Weight 83.915 kg 89.6 kg Patient Weight 06/04/17 06:59 Weight 89.6 kg GENERAL EXAM GEN. APPEARANCE: alert, in no apparent distress HEAD EXAM: atraumatic, normocephalic, normal inspection EYE EXAM: normal appearance, PERRL, EOMI. Absent: scleral icterus, conjunctival injection, periorbital swelling ENT EXAM: normal exam, mucous membranes moist NECK EXAM: normal inspection. Absent: tenderness, meningismus, full ROM, lymphadenopathy RESPIRATORY EXAM: Decreased breath sounds bilaterally. No wheezes. Faint crackles at the posterior lower lung bases CARDIOVASCULAR EXAM: regular rate, normal rhythm, normal heart sounds. GI/ABDOMINAL EXAM: soft, normal bowel sounds. Absent: distended, tenderness, guarding, rebound, rigid EXTREMITIES EXAM: Positive for bilateral mild pitting edema NEUROLOGICAL EXAM: alert, oriented X3, motor sensory deficit PSYCHIATRIC EXAM: normal affect, normal mood SKIN EXAM: warm, dry, intact, normal color. Absent: rash Results CBC & Chem 7: 06/03/17 10:50 06/03/17 03:17 Labs: Abnormal Lab Results - Last 24 Hours (Table) 06/03/17 06/03/17 06/03/17 Range/Units 03:17 03:17 03:17 RBC 3.17 L (3.80-5.40) m/uL Hgb 10.0 L (11.4-16.0) gm/dL Hct 29.8 L (34.0-46.0) % APTT 21.4 L (22.0-30.0) sec Sodium 134 L (137-145) mmol/L Chloride 95 L (98-107) mmol/L BUN 41 H (7-17) mg/dL Creatinine 5.30 H* (0.52-1.04) mg/dL Glucose 363 H (74-99) mg/dL POC Glucose (mg/dL) (75-99) mg/dL Hemoglobin A1c (4.2-6.1) % Phosphorus (2.5-4.5) mg/dL Troponin I (0.000-0.034) ng/mL 06/03/17 06/03/17 06/03/17 Range/Units 06:58 09:13 10:50 RBC (3.80-5.40) m/uL Hgb (11.4-16.0) gm/dL Hct (34.0-46.0) % APTT (22.0-30.0) sec Sodium (137-145) mmol/L Chloride (98-107) mmol/L BUN (7-17) mg/dL Creatinine (0.52-1.04) mg/dL Glucose (74-99) mg/dL POC Glucose (mg/dL) 271 H 245 H (75-99) mg/dL Hemoglobin A1c 8.5 H (4.2-6.1) % Phosphorus (2.5-4.5) mg/dL Troponin I (0.000-0.034) ng/mL 06/03/17 06/03/17 06/03/17 Range/Units 10:50 10:50 10:50 RBC (3.80-5.40) m/uL Hgb (11.4-16.0) gm/dL Hct (34.0-46.0) % APTT 61.4 H (22.0-30.0) sec Sodium (137-145) mmol/L Chloride (98-107) mmol/L BUN (7-17) mg/dL Creatinine (0.52-1.04) mg/dL Glucose (74-99) mg/dL POC Glucose (mg/dL) (75-99) mg/dL Hemoglobin A1c (4.2-6.1) % Phosphorus 5.4 H (2.5-4.5) mg/dL Troponin I 0.074 H* (0.000-0.034) ng/mL 06/03/17 Range/Units 12:33 RBC (3.80-5.40) m/uL Hgb (11.4-16.0) gm/dL Hct (34.0-46.0) % APTT (22.0-30.0) sec Sodium (137-145) mmol/L Chloride (98-107) mmol/L BUN (7-17) mg/dL Creatinine (0.52-1.04) mg/dL Glucose (74-99) mg/dL POC Glucose (mg/dL) 158 H (75-99) mg/dL Hemoglobin A1c (4.2-6.1) % Phosphorus (2.5-4.5) mg/dL Troponin I (0.000-0.034) ng/mL Thrombosis Risk Factor Assmnt - Choose All That Apply Any of the Below Risk Factors Present?: Yes Each Factor Represents 1 point: Obesity (BMI >25) Other Risk Factors: Yes Each Risk Factor Represents 2 Points: Age 61-74 years Thrombosis Risk Factor Assessment Total Risk Factor Score: 3 Thrombosis Risk Factor Assessment Level: Moderate Risk Assessment and Plan Plan: ASSESSMENT Acute volume overload - due to inadequate dialysis ESRD on hemodialysis on Monday and Monday Diastolic congestive heart failure Moderate mitral regurgitation History of coronary artery disease status post stenting Type 2 diabetes mellitus Hypertension Hyperlipidemia History of nicotine dependence Troponin elevation - can be due to demand ischemia and also CKD PLAN Patient is scheduled for hemodialysis for today. She was given IV Lasix that did help her with her symptoms. Nephrology on board and following the patient. Patient is getting serial troponins and EKGs in view of her coronary artery disease and recent stenting. Also cardiology on board. We will resume her home medications. Further recommendations to follow depending on the progress of the patient.
--- NOTE | 2017-06-04 11:59 | P.PN ---
Subjective Principal diagnosis: SOB and chest pain Mrs. Bloom is a 72-year-old female with a past medical history of diabetes mellitus ESRD on hemodialysis hypertension hyperlipidemia coronary artery disease status post stenting coming into the hospital with a chief complaint of shortness of breath and chest discomfort. Patient's symptoms have been progressively worsening over the past couple of weeks. Patient has end-stage renal disease and in hemodialysis and is consistent in getting them but was not able to tolerate more than 3 L of alcohol filtration due to the side effect of cramping for the past 1 month. So her dyspnea has been significantly worsened that she came in to the hospital. Patient did get a chest x-ray that was positive for vascular congestion so was given 40 IV Lasix and placed on oxygen after which her symptoms did improve to some extent . She did get Dialysis yesterday. REVIEW OF SYSTEMS: RESPIRATORY - SOB - improved, no cough CARDIAC: No chest pain , shortness of breath - improved , no paroxysmal nocturnal dyspnea MUSCULOSKELETAL : No Aches or pains in the joints or muscles. GI: No abdominal pain, Nausea or vomiting. No constipation or diarrhea. Objective - Vital Signs Vital signs: Vital Signs Temp 97.8 F 06/04/17 11:22 Pulse 59 L 06/04/17 11:23 Resp 18 06/04/17 11:23 BP 119/60 06/04/17 11:22 Pulse Ox 96 06/04/17 11:22 Intake & Output 06/03/17 06/04/17 06/04/17 18:59 06:59 18:59 Intake Total 552.167 160 543 Output Total 450 30 Balance 102.167 130 543 Weight 89.6 kg 84.9 kg 84.9 kg Intake: IV 120 160 0.9 at 20 ml/hr 120 160 Intake, IV Titration 372.167 303 Amount Heparin Sodium,Porcine/ 313.667 303 D5w Pmx 25,000 unit In Dextrose/Water 1 500ml. bag @ 11.92 UNITS/KG/HR 20 mls/hr IV .Q24H [facility] Rx #:[id number] Nitroglycerin-D5w Pmx 50 58.5 mg In Dextrose/Water 1 250ml.bag @ 20 MCG/MIN 6 mls/hr IV .Q24H [facility] Rx#: [id number] Oral 60 240 Output: Urine 450 30 Other: # Voids 1 1 # Bowel Movements 1 - Exam GEN. APPEARANCE: alert, in no apparent distress HEAD EXAM: atraumatic, normocephalic, normal inspection EYE EXAM: normal appearance, PERRL, EOMI. Absent: scleral icterus, conjunctival injection, periorbital swelling ENT EXAM: normal exam, mucous membranes moist NECK EXAM: normal inspection. Absent: tenderness, meningismus, full ROM, lymphadenopathy RESPIRATORY EXAM: Decreased breath sounds bilaterally. No wheezes. Faint crackles at the posterior lower lung bases CARDIOVASCULAR EXAM: regular rate, normal rhythm, normal heart sounds. GI/ABDOMINAL EXAM: soft, normal bowel sounds. Absent: distended, tenderness, guarding, rebound, rigid EXTREMITIES EXAM: Positive for bilateral mild pitting edema - improved since yesterday NEUROLOGICAL EXAM: alert, oriented X3, motor sensory deficit PSYCHIATRIC EXAM: normal affect, normal mood SKIN EXAM: warm, dry, intact, normal color. Absent: rash - Labs CBC & Chem 7: 06/04/17 07:01 06/03/17 03:17 Labs: Abnormal Lab Results - Last 24 Hours (Table) 06/03/17 06/03/17 06/03/17 Range/Units 10:50 10:50 12:33 APTT (22.0-30.0) sec POC Glucose (mg/dL) 158 H (75-99) mg/dL Hemoglobin A1c 8.5 H (4.2-6.1) % Phosphorus 5.4 H (2.5-4.5) mg/dL Troponin I (0.000-0.034) ng/mL Hep Bs Antibody (Negative) 06/03/17 06/03/17 06/03/17 Range/Units 15:10 16:46 18:00 APTT (22.0-30.0) sec POC Glucose (mg/dL) 110 H (75-99) mg/dL Hemoglobin A1c (4.2-6.1) % Phosphorus (2.5-4.5) mg/dL Troponin I 0.081 H* 0.098 H* (0.000-0.034) ng/mL Hep Bs Antibody (Negative) 06/03/17 06/04/17 06/04/17 Range/Units 21:02 06:02 07:01 APTT (22.0-30.0) sec POC Glucose (mg/dL) 117 H 122 H (75-99) mg/dL Hemoglobin A1c (4.2-6.1) % Phosphorus (2.5-4.5) mg/dL Troponin I (0.000-0.034) ng/mL Hep Bs Antibody POSITIVE H (Negative) 06/04/17 06/04/17 Range/Units 07:01 07:01 APTT 52.7 H (22.0-30.0) sec POC Glucose (mg/dL) (75-99) mg/dL Hemoglobin A1c (4.2-6.1) % Phosphorus (2.5-4.5) mg/dL Troponin I 0.085 H* (0.000-0.034) ng/mL Hep Bs Antibody (Negative) Microbiology - Last 24 Hours (Table) 06/03/17 03:17 Blood Culture - Preliminary Blood No Growth after 24 hours Assessment and Plan Plan: ASSESSMENT Acute volume overload - due to inadequate dialysis ESRD on hemodialysis on Monday and Monday Diastolic congestive heart failure Moderate mitral regurgitation History of coronary artery disease status post stenting Type 2 diabetes mellitus Hypertension Hyperlipidemia History of nicotine dependence Troponin elevation - can be due to demand ischemia and also CKD PLAN She was dialyzed yesterday. Nephrology on board and following the patient. Patient is getting serial troponins and EKGs in view of her coronary artery disease and recent stenting. Also cardiology on board. We will resume her home medications. Further recommendations to follow depending on the progress of the patient.
[2017-06-04 12:04] LABS: Glucose,Whole Blood 189 mg/dL (75-99)
[2017-06-04] MEDS: CHOLECALCIFEROL 1,000 UNIT TAB PO SCH (12:10)
[2017-06-04] MEDS: FOLIC ACID-VIT B COMPLEX-VIT C 1 CAP PO SCH (12:10)
[2017-06-04] MEDS: CYANOCOBALAMIN 500 MCG TAB PO SCH (12:10)
--- NOTE | 2017-06-04 12:28 | ECHOF ---
Referral Reason:cp and sob MEASUREMENTS -------- HEIGHT: 157.5 cm WEIGHT: 83.9 kg BP: 137/63 IVSd: 1.3 cm (0.6 - 1.1) LVIDd: 4.6 cm (3.9 - 5.3) LVPWd: 1.3 cm (0.6 - 1.1) IVSs: 1.8 cm LVIDs: 3.4 cm LVPWs: 1.6 cm LA Diam: 4.0 cm (2.7 - 3.8) LAESV Index (A-L): 32.04 ml/m Ao Diam: 3.0 cm (2.0 - 3.7) AV Cusp: 1.4 cm (1.5 - 2.6) LA Diam: 4.8 cm (2.7 - 3.8) MV EXCURSION: 17.007 mm (> 18.000) MV EF SLOPE: 36 mm/s (70 - 150) EPSS: 1.1 cm MV E Harsha: 1.26 m/s MV DecT: 270 ms MV A Harsha: 0.96 m/s MV E/A Ratio: 1.31 AV maxP.45 mmHg AV meanP.35 mmHg RAP: 5.00 mmHg RVSP: 34.51 mmHg FINDINGS -------- Sinus rhythm. This was a technically adequate study. There is moderate concentric left ventricular hypertrophy. Overall left ventricular systolic function is low-normal with, an EF between 50 - 55 %. The right ventricle is normal in size. LA is moderately dilated 34-39 ml/m2 The right atrial size is normal. Mild aortic stenosis with peak/mean pressure gradient of 19.45mmHg / 9.35mmHg , the aortic valve area by continuity equation is 1.5cm. Mild mitral annular calcification present. Moderate mitral regurgitation is present. Mild tricuspid regurgitation present. There is mild pulmonary hypertension. The right ventricular systolic pressure, as measured by Doppler, is 34.51mmHg. Trace/mild (physiologic) pulmonic regurgitation. The aortic root size is normal. There is no pericardial effusion. CONCLUSIONS -------- 1. There is moderate concentric left ventricular hypertrophy. 2. The aortic root size is normal. 3. There is no pericardial effusion. 4. Overall left ventricular systolic function is low-normal with, an EF between 50 - 55 %. 5. LA is moderately dilated 34-39 ml/m2 6. Mild aortic stenosis with peak/mean pressure gradient of 19.45mmHg / 9.35mmHg , the aortic valve area by continuity equation is 1.5cm. 7. Mild mitral annular calcification present. 8. Mild tricuspid regurgitation present. 9. There is mild pulmonary hypertension. 10. The right ventricular systolic pressure, as measured by Doppler, is 34.51mmHg. 11. Trace/mild (physiologic) pulmonic regurgitation. ADMISSIONS COORDINATOR: Steff Frederick RDCS
[2017-06-04 16:41] LABS: Glucose,Whole Blood 171 mg/dL (75-99)
[2017-06-04 16:55] LABS: Appearance,Urine Clear (Clear); Bacteria,Urine Rare /hpf; Bilirubin,Urine Negative (Negative); Glucose,Urine (UA) 1+ (Negative); Ketones,Urine Negative (Negative); Leukocyte Esterase,Urine Moderate (Negative); Nitrite,Urine Negative (Negative); PH, Urine 6.5 (5.0-8.0); Particle Count 12434; Protein,Urine 2+ (Negative); RBC,Urine 4 /hpf (0-5); Specific Gravity,Urine 1.004 (1.001-1.035); Squamous Epithelial Cell,Urine 5 /hpf (0-4); UA Billing (MACRO vs. MICRO) MICRO; Urobilinogen,Urine <2.0 mg/dL (<2.0); WBC,Urine 7 /hpf (0-5)
--- NOTE | 2017-06-04 16:59 | PN ---
Mrs. Bloom is doing better today. She denies chest pain. Ejection fraction is well preserved on echocardiogram. Her dialysis was successful. Her breathing is easier. They were able to take more than 3 liters. S1/S2 are normal. Short systolic murmur is audible. Lungs are clear. Abdomen and lower extremity exam is unchanged. PLAN: Continue current medications. Her troponin profile does not suggest any significant myocardial injury. I have reviewed her angiogram. We will continue conservative therapy from a cardiac standpoint at this time unless she has any symptoms or has any issues. LEA
[2017-06-04 20:43] LABS: Glucose,Whole Blood 249 mg/dL (75-99)
[2017-06-04] MEDS: SULFAMETHOX-TMP 800-160MG 1 EACH TAB PO SCH (21:12)
[2017-06-04] MEDS: ATORVASTATIN 80 MG TAB PO SCH (21:12)
[2017-06-05] MEDS: HEPARIN SODIUM,PORCINE/D5W PMX 25,000 UNIT in DEXTROSE/WATER 1 500ML.BAG IV SCH (06:17)
[2017-06-05 06:18] LABS: Mean Platelet Volume 7.4
[2017-06-05] MEDS: CALCIUM CARB-MAG CARB-FOLIC 1 EACH TAB PO SCH ×2 (07:03→17:02)
[2017-06-05] MEDS: CARVEDILOL 12.5 MG TAB PO SCH ×2 (07:03→17:02)
[2017-06-05] MEDS: CALCIUM ACETATE 667 MG CAP PO SCH ×3 (07:03→17:02)
[2017-06-05] MEDS: INSULIN LISPRO (humaLOG) 300 UNIT/3 ML VIAL SQ SCH ×3 (07:06→16:42)
[2017-06-05 07:10] LABS: Glucose,Whole Blood 91 mg/dL (75-99)
[2017-06-05] MEDS: CLOPIDOGREL 75 MG TAB PO SCH (08:55)
[2017-06-05] MEDS: SULFAMETHOX-TMP 800-160MG 1 EACH TAB PO SCH (08:55)
[2017-06-05] MEDS: FERROUS SULFATE 325 MG TAB PO SCH (08:56)
[2017-06-05] MEDS: LISINOPRIL 10 MG TAB PO SCH (08:56)
[2017-06-05] MEDS: ISOSORBIDE MONONITRATE ER 30 MG TAB.ER.24H PO SCH (08:56)
[2017-06-05] MEDS: ASPIRIN 81 MG CHEW PO SCH (08:56)
[2017-06-05] MEDS: CYANOCOBALAMIN 500 MCG TAB PO SCH (08:59)
[2017-06-05] MEDS: CHOLECALCIFEROL 1,000 UNIT TAB PO SCH (08:59)
[2017-06-05] MEDS: FUROSEMIDE 40 MG TAB PO SCH ×2 (08:59→17:03)
[2017-06-05] MEDS: CITALOPRAM HYDROBROMIDE 20 MG TAB PO SCH (09:00)
[2017-06-05] MEDS: MECLIZINE 25 MG TAB PO SCH (09:00)
[2017-06-05] MEDS: INSULIN GLARGINE 100 UNIT/ML 10 ML VIAL SQ SCH (09:06)
[2017-06-05 10:29] LABS: Potassium 4.3 mmol/L (3.5-5.1); Total Bilirubin 0.3 mg/dL (0.2-1.3); Total Protein 5.6 g/dL (6.3-8.2)
[2017-06-05 10:34] LABS: Basophils # (A) 0.1 k/uL (0-0.2); Basophils % (A) 1 %; CH 30.3; CHCM 31.8; Eosinophils # (A) 0.4 k/uL (0-0.7); Eosinophils % (A) 5 %; HDW 2.41; HGB 9.4 gm/dL (11.4-16.0); Luc # (Auto) 0.24; Luc % (Auto) 3; Lymphocytes # (A) 1.5 k/uL (1.0-4.8); Lymphocytes % (A) 16 %; MCH 30.9 pg (25.0-35.0); MCHC 32.4 g/dL (31.0-37.0); MCV 95.6 fL (80.0-100.0); Monocytes # (A) 0.6 k/uL (0-1.0); Monocytes % (A) 6 %; Neutrophils # (A) 6.8 k/uL (1.3-7.7); Neutrophils % (A) 71 %; RBC 3.03 m/uL (3.80-5.40); RDW 15.2 % (11.5-15.5); WBC 9.6 k/uL (3.8-10.6); WBC (Perox) 10.31
--- NOTE | 2017-06-05 10:39 | P.PN ---
Subjective Patient is seen in follow-up for end-stage renal disease. She is maintained on hemodialysis on a Monday schedule. She has a left upper extremity AV fistula. Patient presented with dyspnea and was noted to have fluid overload on chest x-ray. She underwent hemodialysis Monday with over 3 L ultrafiltration. She feels well today. Denies chest pain. She does have history of coronary artery disease and had intervention to the right coronary in April 2017. Vital signs are stable. General: The patient appeared well nourished and normally developed. HEENT: Head exam is unremarkable. Neck is without jugular venous distension. LUNGS: Lungs are clear to auscultation and percussion. Breath sounds decreased. HEART: Rate and Rhythm are regular. First and second heart sounds normal. No murmurs, rubs or gallops. ABDOMEN: Abdominal exam reveals normal bowel sounds. Non-tender and non- distended. No evidence of peritonitis. EXTREMITITES: No clubbing, cyanosis, or edema. Objective - Vital Signs Vital signs: Vital Signs Temp 97.8 F 06/05/17 08:00 Pulse 57 L 06/05/17 08:00 Resp 17 06/05/17 08:00 BP 132/63 06/05/17 08:00 Pulse Ox 96 06/05/17 08:38 Intake & Output 06/04/17 06/05/17 06/05/17 18:59 06:59 18:59 Intake Total 1103 464 40 Output Total 300 Balance 1103 164 40 Weight 84.9 kg 86.2 kg Intake: IV 160 40 0.9 at 20 ml/hr 160 40 Intake, IV Titration 303 464 Amount Heparin Sodium,Porcine/ 303 464 D5w Pmx 25,000 unit In Dextrose/Water 1 500ml. bag @ 11.92 UNITS/KG/HR 20 mls/hr IV .Q24H [facility] Rx #:[id number] Oral 640 Output: Urine 300 Other: # Voids 1 0 # Bowel Movements 1 - Labs CBC & Chem 7: 06/05/17 05:21 06/05/17 05:21 Labs: Abnormal Lab Results - Last 24 Hours (Table) 06/04/17 06/04/17 06/04/17 Range/Units 12:02 16:31 16:40 RBC (3.80-5.40) m/uL Hgb (11.4-16.0) gm/dL Hct (34.0-46.0) % APTT (22.0-30.0) sec Sodium (137-145) mmol/L Carbon Dioxide (22-30) mmol/L BUN (7-17) mg/dL Creatinine (0.52-1.04) mg/dL POC Glucose (mg/dL) 189 H 171 H (75-99) mg/dL Total Protein (6.3-8.2) g/dL Albumin (3.5-5.0) g/dL Urine Protein 2+ H (Negative) Urine Glucose (UA) 1+ H (Negative) Ur Leukocyte Esterase Moderate H (Negative) Urine WBC 7 H (0-5) /hpf Ur Squamous Epith Cells 5 H (0-4) /hpf Urine Bacteria Rare H (None) /hpf 06/04/17 06/05/17 06/05/17 Range/Units 20:38 05:21 05:21 RBC 3.03 L (3.80-5.40) m/uL Hgb 9.4 L (11.4-16.0) gm/dL Hct 29.0 L (34.0-46.0) % APTT 47.2 H (22.0-30.0) sec Sodium (137-145) mmol/L Carbon Dioxide (22-30) mmol/L BUN (7-17) mg/dL Creatinine (0.52-1.04) mg/dL POC Glucose (mg/dL) 249 H (75-99) mg/dL Total Protein (6.3-8.2) g/dL Albumin (3.5-5.0) g/dL Urine Protein (Negative) Urine Glucose (UA) (Negative) Ur Leukocyte Esterase (Negative) Urine WBC (0-5) /hpf Ur Squamous Epith Cells (0-4) /hpf Urine Bacteria (None) /hpf 06/05/17 Range/Units 05:21 RBC (3.80-5.40) m/uL Hgb (11.4-16.0) gm/dL Hct (34.0-46.0) % APTT (22.0-30.0) sec Sodium 134 L (137-145) mmol/L Carbon Dioxide 18 L (22-30) mmol/L BUN 37 H (7-17) mg/dL Creatinine 5.10 H* (0.52-1.04) mg/dL POC Glucose (mg/dL) (75-99) mg/dL Total Protein 5.6 L (6.3-8.2) g/dL Albumin 3.0 L (3.5-5.0) g/dL Urine Protein (Negative) Urine Glucose (UA) (Negative) Ur Leukocyte Esterase (Negative) Urine WBC (0-5) /hpf Ur Squamous Epith Cells (0-4) /hpf Urine Bacteria (None) /hpf Microbiology - Last 24 Hours (Table) 06/03/17 03:17 Blood Culture - Preliminary Blood No Growth after 48 hours 06/04/17 16:40 Urine Culture - Preliminary Urine,Voided Assessment and Plan Plan: Assessment: #1. End-stage renal disease maintained on hemodialysis on a Monday schedule via left upper extremity AV fistula. #2. Volume overload. Improved. #3. Diastolic CHF with moderate mitral regurgitation. #4. History of coronary disease status post stent placed to the RCA in April 2017. Cardiology following. #5. Chronic kidney disease mineral bone disease. #5. Anemia of chronic kidney disease. Plan: Hemodialysis Monday with goal 3-4 L ultrafiltration. Maintain Aranesp. Maintain PhosLo with meals.
[2017-06-05 11:20] VITALS: BMI 34.7
[2017-06-05 11:40] LABS: Glucose,Whole Blood 85 mg/dL (75-99)
[2017-06-05 11:42] VITALS: PULSE 65
[2017-06-05] MEDS: FOLIC ACID-VIT B COMPLEX-VIT C 1 CAP PO SCH (11:43)
--- NOTE | 2017-06-05 14:04 | P.PN ---
Subjective The supplies 9-year-old female with end-stage renal disease who follows with Dr. Caruso in the office. As a known history of stenting of her RCA as recently as April of this year. Presented to the hospital with increasing shortness of breath, weight gain and was obviously volume overloaded. She underwent dialysis and is feeling quite a bit better. She denies any chest discomfort, she denies shortness of breath palpitations or dizziness. Objective - Vital Signs Vital signs: Vital Signs Temp 97.8 F 06/05/17 08:00 Pulse 65 06/05/17 11:38 Resp 17 06/05/17 11:38 BP 150/60 06/05/17 11:38 Pulse Ox 100 06/05/17 11:38 Intake & Output 06/04/17 06/05/17 06/05/17 18:59 06:59 18:59 Intake Total 1103 464 40 Output Total 300 Balance 1103 164 40 Weight 84.9 kg 86.2 kg 86.2 kg Intake: IV 160 40 0.9 at 20 ml/hr 160 40 Intake, IV Titration 303 464 Amount Heparin Sodium,Porcine/ 303 464 D5w Pmx 25,000 unit In Dextrose/Water 1 500ml. bag @ 11.92 UNITS/KG/HR 20 mls/hr IV .Q24H JONH Rx #:[id number] Oral 640 Output: Urine 300 Other: # Voids 1 0 # Bowel Movements 1 - Exam PHYSICAL EXAMINATION: HEENT: Head is atraumatic, normocephalic. Pupils equal, round. Neck is supple. There is no elevated jugular venous pressure. HEART EXAMINATION: Heart sounds regular, S1 and S2 normal with a systolic murmur. CHEST EXAMINATION: Lungs are clear to auscultation and precussion. No chest wall tenderness is noted on palpation or with deep breathing. ABDOMEN: Soft, nontender. Bowel sounds are heard. No organomegaly noted. EXTREMITIES: Diminished peripheral pulses with no evidence of peripheral edema and no calf tenderness noted. NEUROLOGIC patient is awake, alert and oriented x3. . - Labs CBC & Chem 7: 06/05/17 05:21 06/05/17 05:21 Labs: Abnormal Lab Results - Last 24 Hours (Table) 06/04/17 06/04/17 06/04/17 Range/Units 16:31 16:40 20:38 RBC (3.80-5.40) m/uL Hgb (11.4-16.0) gm/dL Hct (34.0-46.0) % APTT (22.0-30.0) sec Sodium (137-145) mmol/L Carbon Dioxide (22-30) mmol/L BUN (7-17) mg/dL Creatinine (0.52-1.04) mg/dL POC Glucose (mg/dL) 171 H 249 H (75-99) mg/dL Total Protein (6.3-8.2) g/dL Albumin (3.5-5.0) g/dL Urine Protein 2+ H (Negative) Urine Glucose (UA) 1+ H (Negative) Ur Leukocyte Esterase Moderate H (Negative) Urine WBC 7 H (0-5) /hpf Ur Squamous Epith Cells 5 H (0-4) /hpf Urine Bacteria Rare H (None) /hpf 06/05/17 06/05/17 06/05/17 Range/Units 05:21 05:21 05:21 RBC 3.03 L (3.80-5.40) m/uL Hgb 9.4 L (11.4-16.0) gm/dL Hct 29.0 L (34.0-46.0) % APTT 47.2 H (22.0-30.0) sec Sodium 134 L (137-145) mmol/L Carbon Dioxide 18 L (22-30) mmol/L BUN 37 H (7-17) mg/dL Creatinine 5.10 H* (0.52-1.04) mg/dL POC Glucose (mg/dL) (75-99) mg/dL Total Protein 5.6 L (6.3-8.2) g/dL Albumin 3.0 L (3.5-5.0) g/dL Urine Protein (Negative) Urine Glucose (UA) (Negative) Ur Leukocyte Esterase (Negative) Urine WBC (0-5) /hpf Ur Squamous Epith Cells (0-4) /hpf Urine Bacteria (None) /hpf Microbiology - Last 24 Hours (Table) 06/03/17 03:17 Blood Culture - Preliminary Blood No Growth after 48 hours 06/04/17 16:40 Urine Culture - Preliminary Urine,Voided Assessment and Plan Plan: Assessment and plan #1 volume overload secondary to inadequate, incomplete dialysis #2 coronary artery disease with previous stenting, most recent RCA in April of this year #3 troponin elevation likely represents renal dysfunction and heart failure picture rather than just acute myocardial injury #4 diabetes mellitus #5 end-stage renal disease, on hemodialysis #6 hypertension Digital Media Manager perspective, medications were reviewed and we will continue the same. Patient is stable for discharge home and can follow up with Dr. Caruso in the office in 2 weeks. ENGLISH INSTRUCTOR note has been reviewed, I agree with a documented findings and plan of care. Patient was seen and examined.
[2017-06-05 16:41] LABS: Glucose,Whole Blood 115 mg/dL (75-99)
[2017-06-05 16:45] VITALS: BP 118/67; RESP 19; TEMP 97.7
[2017-06-05] MEDS ORDERED: SULFAMETHOX-TMP 400-80MG 1 EACH TAB PO SCH (21:00)
== END 2017-06-05 18:50 | disposition home or self-care (01) | DRG 640 ==
LOC: EC 03:05 → 6ICU 05:33 → 6SEL 16:25
PROVIDERS: ADMIT Family Medicine; ATTEND Family Medicine
PROC: 5A1D00Z (ICD-10-PCS; principal; 2017-06-03)
DX: E87.70 Fluid overload, unspecified (principal); N18.6 End stage renal disease; I50.32 Chronic diastolic (congestive) heart failure; I13.2 Hypertensive heart and chronic kidney disease with heart failure and with stage 5 chronic kidney disease, or end stage renal disease; N17.9 Acute kidney failure, unspecified; I24.8 Other forms of acute ischemic heart disease; E11.22 Type 2 diabetes mellitus with diabetic chronic kidney disease; E11.42 Type 2 diabetes mellitus with diabetic polyneuropathy; D63.1 Anemia in chronic kidney disease; E78.5 Hyperlipidemia, unspecified; F32.9 Major depressive disorder, single episode, unspecified; I25.10 Atherosclerotic heart disease of native coronary artery without angina pectoris; I25.2 Old myocardial infarction; I34.0 Nonrheumatic mitral (valve) insufficiency; H26.9 Unspecified cataract; E83.9 Disorder of mineral metabolism, unspecified; Z79.02 Long term (current) use of antithrombotics/antiplatelets; Z79.4 Long term (current) use of insulin; Z79.82 Long term (current) use of aspirin; Z79.899 Other long term (current) drug therapy; Z87.891 Personal history of nicotine dependence; Z95.5 Presence of coronary angioplasty implant and graft; Z99.2 Dependence on renal dialysis; Z88.8 Allergy status to other drugs, medicaments and biological substances; Z82.49 Family history of ischemic heart disease and other diseases of the circulatory system
CPT/HCPCS: 36415; 71020; 80053; 80061; 81001; 82550; 82553; 83036; 83880; 84100; 84484; 85025; 85049; 85610; 85730; 86704; 86706; 87040; 87086; 87340; 90935; 93005; 93306; 94760; 96365; 96366; 96375; 96376; 99285

== ENCOUNTER 2017-06-24 14:45 | Emergency (ER) | payer MEDICARE, OTHER ==
[2017-06-24] MEDS ORDERED: ONDANSETRON 4 MG/2 ML VIAL IVP STA (15:09)
--- NOTE | 2017-06-24 15:14 | ED ---
General Adult HPI - General Chief complaint: Nausea/Vomiting/Diarrhea Stated complaint: NAUSEA, VOMITING Time Seen by Provider: 06/24/17 15:02 Source: patient, EMS, RN notes reviewed, old records reviewed Mode of arrival: EMS Limitations: no limitations - History of Present Illness Initial comments: If complaint and history of present illness is a 72-year-old female who while at dialysis had to stop early because of vomiting and diarrhea. The patient reports she started diarrhea yesterday and then nausea vomiting and diarrhea today. Denies any pains no fever no blood noted in the vomit or diarrhea. - Related Data Home Medications Medication Instructions Recorded Confirmed Cholecalciferol [Vitamin D3] 1,000 unit PO DAILY 03/13/16 06/24/17 Ferrous Sulfate [Iron (65 MG 325 mg PO BID 03/13/16 06/24/17 Elemental)] Calcium Acetate [Phoslo] 1,334 mg PO AC-TID 03/14/16 06/24/17 Insulin Aspart [NovoLOG] See Protocol SQ AC-TID 03/14/16 06/24/17 Cyanocobalamin [Vitamin B-12] 1,000 mcg PO DAILY 06/06/16 06/24/17 Folic Acid-Vit B Complex-Vit C 1 cap PO DAILY 06/06/16 06/24/17 [Nephrocaps] Citalopram Hydrobromide [CeleXA] 20 mg PO DAILY 08/05/16 06/24/17 Isosorbide Mononitrate ER [Imdur] 30 mg PO DAILY 11/19/16 06/24/17 Magnebind 300 1 tab PO AC-BID 11/19/16 06/24/17 Furosemide [Lasix] 40 mg PO DAILY 04/21/17 06/24/17 Lisinopril [Zestril] 10 mg PO DAILY 04/21/17 06/24/17 Meclizine [Antivert] 25 mg PO BID PRN 04/21/17 06/24/17 Aspirin 81 mg PO DAILY 06/03/17 06/24/17 Insulin Glargine,Hum.rec.anlog 30 unit SQ DAILY 06/03/17 06/24/17 [Lantus Solostar] Previous Rx's Medication Instructions Recorded Carvedilol [Coreg*] 12.5 mg PO BID-W/MEALS #60 tab 08/09/16 Atorvastatin [Lipitor] 80 mg PO HS #30 tab 11/22/16 Clopidogrel [Plavix] 75 mg PO DAILY #30 tab 11/22/16 Nitroglycerin Sl Tabs [Nitrostat] 0.4 mg SUBLINGUAL Q5M PRN #25 tab 11/22/16 Darbepoetin Luis Manuel [Aranesp] 40 mcg SQ Q7D syr 06/05/17 Ondansetron Odt [Zofran Odt] 4 mg PO Q8HR PRN #10 tab 06/24/17 Allergies Allergy/AdvReac Type Severity Reaction Status Date / Time glyburide [From Diabeta] Allergy Rash/Hives Verified 06/24/17 16:07 Review of Systems ROS Statement: Those systems with pertinent positive or pertinent negative responses have been documented in the HPI. Review of systems no headache or visual acuity changes denies any chest pain or shortness of breath. Denies abdominal pain. States she's had vomiting and diarrhea today diarrhea yesterday. She received dialysis today. She finished all that except for the last 45 minutes. All systems are reviewed. Past medical problems significant for diabetes mellitus, on dialysis for chronic renal failure. Hyperlipidemia, hypertension, previous LA. Patient surgeries include appendectomy, cholecystectomy, heart catheterization ROS Other: All systems not noted in ROS Statement are negative. Past Medical History Past Medical History: Diabetes Mellitus, Dialysis, Hyperlipidemia, Hypertension , Myocardial Infarction (LA), Renal Disease Additional Past Medical History / Comment(s): chronic renal failure stage V with dialysis 3 times a week-lt arm fistula, IDDM, pt states "per dialysis nurse who performed EKG and told pt she had an abnormal EKG and had had a LA in the past" but physician has never confirmed. NSTEMI 03/14/16, peripheral neuropathy bilateral feet cataracts bilaterally, UTI'S. Last Myocardial Infarction Date:: 06/07/2016 History of Any Multi-Drug Resistant Organisms: None Reported Past Surgical History: Appendectomy, Cholecystectomy, Heart Catheterization, Heart Catheterization With Stent Additional Past Surgical History / Comment(s): 03/15/16 PTCA with stent to mid LAD,06-07-16 HEART CATH STENT TO PROX RCA. Restented mid LAD 11/20/16 A/V fistula with revision L upper arm Past Anesthesia/Blood Transfusion Reactions: No Reported Reaction Date of Last Stent Placement:: 06/07/16 Past Psychological History: Depression Smoking Status: Former smoker Past Alcohol Use History: None Reported Past Drug Use History: None Reported - Past Family History Father Family Medical History: Diabetes Mellitus Additional Family Medical History / Comment(s): Father of diabetic complications in his 40's Mother Family Medical History: Cancer, Myocardial Infarction (LA) Additional Family Medical History / Comment(s): Cancer unknown type. Mother of a LA in her early 50's General Exam - General Exam Comments Initial Comments: General: The patient is awake and alert, because of nausea vomiting and diarrhea. Vital signs temp 97.4 pulse 65 respiratory rate 18 pulse ox on percent room air blood pressure 164/70. Eye: Pupils are equal, round and reactive to light, extra-ocular movements are intact ; there is normal conjunctiva bilaterally. No signs of icterus. Ears, nose, mouth and throat: There are moist mucous membranes and no oral lesions. Neck: The neck is supple, there is no tenderness . Cardiovascular: There is a regular rate and rhythm. No murmur, rub or gallop is appreciated. Respiratory: Lungs are clear to auscultation, respirations are non-labored, breath sounds are equal. No wheezes, stridor, rales, or rhonchi. Gastrointestinal: Soft, non-distended, non-tender abdomen without masses or organomegaly noted. There is no rebound or guarding present. No CVA tenderness. Active bowel sounds Back: No complaint of back pain Musculoskeletal: Normal ROM, no tenderness, There is no calf tenderness or swelling. Sensation intact. No complaint of weakness, no numbness no tingling. Neurological: No difficulty walking. No complaint of any focal or lateralizing findings. Skin: Skin is warm and dry and no rashes or lesions are noted. Limitations: no limitations Course Vital Signs 06/24/17 14:56 Temperature 97.4 F L Pulse Rate 65 Respiratory 18 Rate Blood Pressure 164/70 O2 Sat by Pulse 100 Oximetry Medical Decision Making - Medical Decision Making Medical decision-making. The patient's stool is soft not watery. I did tell her if she went home then she will be providing a stool sample if it turns liquidy to rule out C. diff. Patient at this time reports she is feeling better think she can go home. Her labs at this time potassium 3.8 BUN 22 creatinine 3.2 GFR 14. Blood sugar 121 . Patient did have dialysis today and she has on-again several days. Time patient is planning on going home she will receive slight 1 hydration. On emergency room her nausea vomiting is controlled with IV Zofran. Denies any loose stool or bowel movements while here. Patient states much better and wants to go home. She'll be discharged home with Zofran ODT. Advised return emergency room if she has any changes in her condition including vomiting or diarrhea. Advised to follow-up with family physician. - Lab Data Result diagrams: 06/24/17 15:18 Lab Results 06/24/17 Range/Units 15:18 Sodium 137 (137-145) mmol/L Potassium 3.8 (3.5-5.1) mmol/L Chloride 97 L (98-107) mmol/L Carbon Dioxide 27 (22-30) mmol/L Anion Gap 13 mmol/L BUN 22 H (7-17) mg/dL Creatinine 3.20 H (0.52-1.04) mg/dL Est GFR (MDRD) Af Amer 17 (>60 ml/min/1.73 sqM) Est GFR (MDRD) Non-Af 14 (>60 ml/min/1.73 sqM) Glucose 121 H (74-99) mg/dL Calcium 9.5 (8.4-10.2) mg/dL Total Bilirubin 0.5 (0.2-1.3) mg/dL AST 34 (14-36) U/L ALT 46 (9-52) U/L Alkaline Phosphatase 120 (38-126) U/L Total Protein 6.9 (6.3-8.2) g/dL Albumin 3.8 (3.5-5.0) g/dL Amylase 35 (30-110) U/L Lipase 223 (23-300) U/L Disposition Clinical Impression: Nausea vomiting and diarrhea Disposition: HOME SELF-CARE Condition: Fair Instructions: Acute Nausea and Vomiting (ED), Acute Diarrhea (ED) Additional Instructions: Leone fluids. Follow-up with family physician. Follow-up with dialysis. Return emergency room if started having vomiting and diarrhea again. Use Pepto- Bismol and Zofran as directed Prescriptions: Ondansetron Odt [Zofran Odt] 4 mg PO Q8HR PRN #10 tab PRN Reason: Nausea vomiting Referrals: Jasbir Malone DO [Primary Care Provider] - 1-2 days Time of Disposition: 16:51
[2017-06-24] MEDS ORDERED: SODIUM CHLORIDE 0.9% 1,000 ML IV SCH (15:15)
[2017-06-24 15:39] LABS: Calcium 9.5 mg/dL (8.4-10.2); Potassium 3.8 mmol/L (3.5-5.1); Total Bilirubin 0.5 mg/dL (0.2-1.3); Total Protein 6.9 g/dL (6.3-8.2)
--- NOTE | 2017-06-24 15:59 | XR ---
EXAMINATION TYPE: XR KUB DATE OF EXAM: 06/24/2017 3:54 PM CLINICAL HISTORY: Abdominal pain per order. Nausea vomiting and diarrhea since dialysis yesterday. TECHNIQUE: 2 upright KUB images of the abdomen are obtained. COMPARISON: None. FINDINGS: Scattered gas is seen in non-distended stomach and small bowel loops. Gas and fecal materia l is seen in non-distended colon. No pneumoperitoneum is present. Prominent vascular calcification is seen consistent with product of chronic end-stage renal disease. Lung bases are clear. Cardiomegaly is noted. Moderate to severe joint space loss in both hips is present. There is mild multilevel spurr ing in the spine. IMPRESSION: Overall nonobstructive bowel gas pattern.
[2017-06-24 17:09] VITALS: BP 153/67; PULSE 62; RESP 16; TEMP 98.2
== END 2017-06-24 17:10 | disposition home or self-care (01) ==
LOC: EC 14:45
DX: R11.2 Nausea with vomiting, unspecified (principal); R19.7 Diarrhea, unspecified; E11.9 Type 2 diabetes mellitus without complications; F32.9 Major depressive disorder, single episode, unspecified; I10 Essential (primary) hypertension; I25.2 Old myocardial infarction; Z87.891 Personal history of nicotine dependence; Z99.2 Dependence on renal dialysis; Z79.4 Long term (current) use of insulin; Z79.82 Long term (current) use of aspirin; Z79.899 Other long term (current) drug therapy; Z88.8 Allergy status to other drugs, medicaments and biological substances
CPT/HCPCS: 36415; 80053; 82150; 83690; 74000; 99285; 96374; 96361; J2405

== ENCOUNTER 2017-07-15 21:21 | Inpatient (IN) | payer MEDICARE, OTHER ==
--- NOTE | 2017-07-15 21:55 | ED ---
SOB HPI - General Chief Complaint: Shortness of Breath Stated Complaint: SOB Time Seen by Provider: 07/15/17 21:29 Source: patient Mode of arrival: wheelchair Limitations: no limitations - History of Present Illness Initial Comments: This patient is a 72-year-old woman who presents with a complaint of shortness of breath and then little bit of pain with deep inspiration. Patient states she was in her usual state of health until about a week ago when she states that her usual cough became a little more prominent. She states that about 24 hours ago she also started feeling a little bit of shortness of breath, mainly with exertion. tonight she was at a family reunion and felt that she was having shortness of breath when she was walking to see people. She states that also causes a little bit of pain laterally in the chest when she would take a very deep breath. She is denying any chest pain at rest. She was not having any other symptoms, including no diaphoresis, nausea or vomiting. Patient denies any mucus or blood with the cough. She has not been noting fevers or chills. MD Complaint: shortness of breath Onset/Timin -: days(s) Consistency: constant Improves With: nothing Worsens With: exertion Associated Symptoms: denies other symptoms, cough - Related Data Home Medications Medication Instructions Recorded Confirmed Cholecalciferol [Vitamin D3] 1,000 unit PO DAILY 03/13/16 07/15/17 Ferrous Sulfate [Iron (65 MG 325 mg PO BID 03/13/16 07/15/17 Elemental)] Calcium Acetate [Phoslo] 1,334 mg PO AC-TID 03/14/16 07/15/17 Insulin Aspart [NovoLOG] See Protocol SQ AC-TID 03/14/16 07/15/17 Cyanocobalamin [Vitamin B-12] 1,000 mcg PO DAILY 06/06/16 07/15/17 Folic Acid-Vit B Complex-Vit C 1 cap PO DAILY 06/06/16 07/15/17 [Nephrocaps] Citalopram Hydrobromide [CeleXA] 20 mg PO DAILY 08/05/16 07/15/17 Isosorbide Mononitrate ER [Imdur] 30 mg PO DAILY 11/19/16 07/15/17 Magnebind 300 1 tab PO AC-BID 11/19/16 07/15/17 Furosemide [Lasix] 40 mg PO DAILY 04/21/17 07/15/17 Lisinopril [Zestril] 10 mg PO DAILY 04/21/17 07/15/17 Meclizine [Antivert] 25 mg PO BID PRN 04/21/17 07/15/17 Aspirin 81 mg PO DAILY 06/03/17 07/15/17 Insulin Glargine,Hum.rec.anlog 30 unit SQ DAILY 06/03/17 07/15/17 [Lantus Solostar] Previous Rx's Medication Instructions Recorded Carvedilol [Coreg*] 12.5 mg PO BID-W/MEALS #60 tab 08/09/16 Atorvastatin [Lipitor] 80 mg PO HS #30 tab 11/22/16 Clopidogrel [Plavix] 75 mg PO DAILY #30 tab 11/22/16 Nitroglycerin Sl Tabs [Nitrostat] 0.4 mg SUBLINGUAL Q5M PRN #25 tab 11/22/16 Darbepoetin Luis Manuel [Aranesp] 40 mcg SQ Q7D syr 06/05/17 Ondansetron Odt [Zofran Odt] 4 mg PO Q8HR PRN #10 tab 06/24/17 Allergies Allergy/AdvReac Type Severity Reaction Status Date / Time glyburide [From Diabeta] Allergy Rash/Hives Verified 07/15/17 21:27 Review of Systems ROS Statement: Those systems with pertinent positive or pertinent negative responses have been documented in the HPI. ROS Other: All systems not noted in ROS Statement are negative. Constitutional: Denies: fever, chills, weakness Respiratory: Reports: as per HPI, cough, dyspnea. Denies: wheezes, hemoptysis Cardiovascular: Reports: dyspnea on exertion. Denies: chest pain, palpitations , orthopnea, edema, syncope Gastrointestinal: Denies: abdominal pain, nausea, vomiting, melena, hematochezia Genitourinary: Denies: dysuria Musculoskeletal: Denies: back pain Skin: Denies: rash Neurological: Denies: headache, weakness, numbness Past Medical History Past Medical History: Diabetes Mellitus, Dialysis, Hyperlipidemia, Hypertension , Myocardial Infarction (PR), Renal Disease Additional Past Medical History / Comment(s): chronic renal failure stage V with dialysis 3 times a week-lt arm fistula, IDDM, pt states "per dialysis nurse who performed EKG and told pt she had an abnormal EKG and had had a PR in the past" but physician has never confirmed. NSTEMI 03/14/16, peripheral neuropathy bilateral feet cataracts bilaterally, UTI'S. Last Myocardial Infarction Date:: 06/07/2016 History of Any Multi-Drug Resistant Organisms: None Reported Past Surgical History: Appendectomy, Cholecystectomy, Heart Catheterization, Heart Catheterization With Stent Additional Past Surgical History / Comment(s): 03/15/16 PTCA with stent to mid LAD,06-07-16 HEART CATH STENT TO PROX RCA. Restented mid LAD 11/20/16 A/V fistula with revision L upper arm Past Anesthesia/Blood Transfusion Reactions: No Reported Reaction Date of Last Stent Placement:: 06/07/16 Past Psychological History: Depression Smoking Status: Former smoker Past Alcohol Use History: None Reported Past Drug Use History: None Reported - Past Family History Father Family Medical History: Diabetes Mellitus Additional Family Medical History / Comment(s): Father of diabetic complications in his 40's Mother Family Medical History: Cancer, Myocardial Infarction (PR) Additional Family Medical History / Comment(s): Cancer unknown type. Mother of a PR in her early 50's General Exam Limitations: no limitations General appearance: alert, in no apparent distress Head exam: Present: atraumatic, normocephalic Eye exam: Present: normal appearance. Absent: scleral icterus, conjunctival injection ENT exam: Present: normal oropharynx Neck exam: Present: normal inspection, full ROM Respiratory exam: Present: normal lung sounds bilaterally. Absent: respiratory distress, wheezes, rales, rhonchi, stridor, chest wall tenderness Cardiovascular Exam: Present: regular rate, normal rhythm, systolic murmur ( Grade 1/6 systolic ejection murmur). Absent: diastolic murmur, rubs, gallop GI/Abdominal exam: Present: soft. Absent: distended, tenderness, guarding, rebound, mass Extremities exam: Present: normal inspection, normal capillary refill. Absent: pedal edema, calf tenderness Back exam: Present: normal inspection. Absent: CVA tenderness (R), CVA tenderness (L) Neurological exam: Present: alert Skin exam: Present: warm, dry, intact, normal color. Absent: rash, cyanosis, diaphoretic, erythema, petechiae, pallor, mottled Course Vital Signs 07/15/17 07/15/17 07/15/17 21:25 22:13 22:48 Temperature 98.2 F Pulse Rate 78 78 78 Respiratory 18 18 18 Rate Blood Pressure 174/72 181/75 181/75 O2 Sat by Pulse 97 95 95 Oximetry 07/15/17 23:40 Temperature Pulse Rate 72 Respiratory 16 Rate Blood Pressure 167/69 O2 Sat by Pulse 95 Oximetry Medical Decision Making - Lab Data Result diagrams: 07/15/17 22:05 07/15/17 22:05 Lab Results 07/15/17 07/15/17 07/15/17 Range/Units 22:05 22:05 22:05 WBC 7.2 (3.8-10.6) k/uL RBC 3.30 L (3.80-5.40) m/uL Hgb 10.5 L (11.4-16.0) gm/dL Hct 32.2 L (34.0-46.0) % MCV 97.4 (80.0-100.0) fL MCH 31.6 (25.0-35.0) pg MCHC 32.5 (31.0-37.0) g/dL RDW 13.7 (11.5-15.5) % Plt Count 227 (150-450) k/uL Neutrophils % 66 % Lymphocytes % 18 % Monocytes % 7 % Eosinophils % 6 % Basophils % 1 % Neutrophils # 4.7 (1.3-7.7) k/uL Lymphocytes # 1.3 (1.0-4.8) k/uL Monocytes # 0.5 (0-1.0) k/uL Eosinophils # 0.5 (0-0.7) k/uL Basophils # 0.1 (0-0.2) k/uL Hypochromasia Slight PT 9.8 (9.0-12.0) sec INR 1.0 (<1.2) APTT 22.6 (22.0-30.0) sec D-Dimer 0.72 H (<0.60) mg/L FEU Sodium 135 L (137-145) mmol/L Potassium 4.4 (3.5-5.1) mmol/L Chloride 93 L (98-107) mmol/L Carbon Dioxide 25 (22-30) mmol/L Anion Gap 17 mmol/L BUN 43 H (7-17) mg/dL Creatinine 5.70 H* (0.52-1.04) mg/dL Est GFR (MDRD) Af Amer 9 (>60 ml/min/1.73 sqM) Est GFR (MDRD) Non-Af 7 (>60 ml/min/1.73 sqM) Glucose 696 H* (74-99) mg/dL POC Glucose (mg/dL) (75-99) mg/dL POC Glu Sewage Plant Attendant ID Calcium 9.6 (8.4-10.2) mg/dL Total Bilirubin 0.4 (0.2-1.3) mg/dL AST 23 (14-36) U/L ALT 34 (9-52) U/L Alkaline Phosphatase 127 H (38-126) U/L Troponin I (0.000-0.034) ng/mL NT-Pro-B Natriuret Pep pg/mL Total Protein 7.0 (6.3-8.2) g/dL Albumin 4.1 (3.5-5.0) g/dL Urine Color Urine Appearance (Clear) Urine pH (5.0-8.0) Ur Specific [place] (1.001-1.035) Urine Protein (Negative) Urine Glucose (UA) (Negative) Urine Ketones (Negative) Urine Blood (Negative) Urine Nitrite (Negative) Urine Bilirubin (Negative) Urine Urobilinogen (<2.0) mg/dL Ur Leukocyte Esterase (Negative) Urine RBC (0-5) /hpf Urine WBC (0-5) /hpf Urine WBC Clumps (None) /hpf Ur Squamous Epith Cells (0-4) /hpf Amorphous Sediment (None) /hpf Urine Bacteria (None) /hpf Urine Mucus (None) /hpf 07/15/17 07/15/17 07/15/17 Range/Units 22:05 22:05 22:45 WBC (3.8-10.6) k/uL RBC (3.80-5.40) m/uL Hgb (11.4-16.0) gm/dL Hct (34.0-46.0) % MCV (80.0-100.0) fL MCH (25.0-35.0) pg MCHC (31.0-37.0) g/dL RDW (11.5-15.5) % Plt Count (150-450) k/uL Neutrophils % % Lymphocytes % % Monocytes % % Eosinophils % % Basophils % % Neutrophils # (1.3-7.7) k/uL Lymphocytes # (1.0-4.8) k/uL Monocytes # (0-1.0) k/uL Eosinophils # (0-0.7) k/uL Basophils # (0-0.2) k/uL Hypochromasia PT (9.0-12.0) sec INR (<1.2) APTT (22.0-30.0) sec D-Dimer (<0.60) mg/L FEU Sodium (137-145) mmol/L Potassium (3.5-5.1) mmol/L Chloride (98-107) mmol/L Carbon Dioxide (22-30) mmol/L Anion Gap mmol/L BUN (7-17) mg/dL Creatinine (0.52-1.04) mg/dL Est GFR (MDRD) Af Amer (>60 ml/min/1.73 sqM) Est GFR (MDRD) Non-Af (>60 ml/min/1.73 sqM) Glucose (74-99) mg/dL POC Glucose (mg/dL) (75-99) mg/dL POC Glu Sewage Plant Attendant ID Calcium (8.4-10.2) mg/dL Total Bilirubin (0.2-1.3) mg/dL AST (14-36) U/L ALT (9-52) U/L Alkaline Phosphatase (38-126) U/L Troponin I 0.072 H* (0.000-0.034) ng/mL NT-Pro-B Natriuret Pep 51615 pg/mL Total Protein (6.3-8.2) g/dL Albumin (3.5-5.0) g/dL Urine Color Light Yellow Urine Appearance Cloudy H (Clear) Urine pH 7.5 (5.0-8.0) Ur Specific [place] 1.011 (1.001-1.035) Urine Protein 2+ H (Negative) Urine Glucose (UA) 4+ H (Negative) Urine Ketones Negative (Negative) Urine Blood Small H (Negative) Urine Nitrite Negative (Negative) Urine Bilirubin Negative (Negative) Urine Urobilinogen <2.0 (<2.0) mg/dL Ur Leukocyte Esterase Large H (Negative) Urine RBC 8 H (0-5) /hpf Urine WBC 119 H (0-5) /hpf Urine WBC Clumps Rare H (None) /hpf Ur Squamous Epith Cells 12 H (0-4) /hpf Amorphous Sediment Rare H (None) /hpf Urine Bacteria Few H (None) /hpf Urine Mucus Rare H (None) /hpf 07/16/17 Range/Units 00:06 WBC (3.8-10.6) k/uL RBC (3.80-5.40) m/uL Hgb (11.4-16.0) gm/dL Hct (34.0-46.0) % MCV (80.0-100.0) fL MCH (25.0-35.0) pg MCHC (31.0-37.0) g/dL RDW (11.5-15.5) % Plt Count (150-450) k/uL Neutrophils % % Lymphocytes % % Monocytes % % Eosinophils % % Basophils % % Neutrophils # (1.3-7.7) k/uL Lymphocytes # (1.0-4.8) k/uL Monocytes # (0-1.0) k/uL Eosinophils # (0-0.7) k/uL Basophils # (0-0.2) k/uL Hypochromasia PT (9.0-12.0) sec INR (<1.2) APTT (22.0-30.0) sec D-Dimer (<0.60) mg/L FEU Sodium (137-145) mmol/L Potassium (3.5-5.1) mmol/L Chloride (98-107) mmol/L Carbon Dioxide (22-30) mmol/L Anion Gap mmol/L BUN (7-17) mg/dL Creatinine (0.52-1.04) mg/dL Est GFR (MDRD) Af Amer (>60 ml/min/1.73 sqM) Est GFR (MDRD) Non-Af (>60 ml/min/1.73 sqM) Glucose (74-99) mg/dL POC Glucose (mg/dL) >600 H (75-99) mg/dL POC Glu Sewage Plant Attendant ID Evette Lopez Calcium (8.4-10.2) mg/dL Total Bilirubin (0.2-1.3) mg/dL AST (14-36) U/L ALT (9-52) U/L Alkaline Phosphatase (38-126) U/L Troponin I (0.000-0.034) ng/mL NT-Pro-B Natriuret Pep pg/mL Total Protein (6.3-8.2) g/dL Albumin (3.5-5.0) g/dL Urine Color Urine Appearance (Clear) Urine pH (5.0-8.0) Ur Specific [place] (1.001-1.035) Urine Protein (Negative) Urine Glucose (UA) (Negative) Urine Ketones (Negative) Urine Blood (Negative) Urine Nitrite (Negative) Urine Bilirubin (Negative) Urine Urobilinogen (<2.0) mg/dL Ur Leukocyte Esterase (Negative) Urine RBC (0-5) /hpf Urine WBC (0-5) /hpf Urine WBC Clumps (None) /hpf Ur Squamous Epith Cells (0-4) /hpf Amorphous Sediment (None) /hpf Urine Bacteria (None) /hpf Urine Mucus (None) /hpf - EKG Data -: EKG Interpreted by Fl EKG shows normal: sinus rhythm, axis (Normal), intervals (The QTC is 513 ms, prolonged. GA interval is 184 ms, QRS duration [address]-T waves (There are ST abnormalities concerning for possible lateral subendocardial injury, but these are present on the previous EKG) Rate: normal (Rate approximately 75 bpm) When compared to previous EKG there are: other (The EKG is similar to the comparison from 06/03/2017) Disposition Clinical Impression: Congestive heart failure, Dyspnea, Hyperglycemia, Elevated troponin I level, Acute on chronic renal failure Disposition: ADMITTED IP TO THIS [facility] Condition: Poor Referrals: Jasbir Malone DO [Primary Care Provider] - 1-2 days
--- NOTE | 2017-07-15 22:29 | XR ---
EXAM: XR Chest, 2 Views CLINICAL HISTORY: Reason: difficulty breathing TECHNIQUE: Frontal and lateral views of the chest. COMPARISON: 06/03/17 FINDINGS: No lobar consolidation. Mild cardiomegaly. Mild stable pulmonary interstitial prominence. No pleural effusion. Osseous structures intact. IMPRESSION: No lobar consolidation. Mild cardiomegaly and stable pulmonary interstitial prominence. This may be the result of mild pulmonary venous congestion or chronic interstitial disease. Correlate clinically.
[2017-07-15 22:31] LABS: Basophils # (A) 0.1 k/uL (0-0.2); Basophils % (A) 1 %; CH 30.5; CHCM 31.5; Eosinophils # (A) 0.5 k/uL (0-0.7); Eosinophils % (A) 6 %; HCT 32.2 % (34.0-46.0); HDW 2.61; HGB 10.5 gm/dL (11.4-16.0); Hypochromasia Slight; Luc # (Auto) 0.17; Luc % (Auto) 2; Lymphocytes # (A) 1.3 k/uL (1.0-4.8); Lymphocytes % (A) 18 %; MCH 31.6 pg (25.0-35.0); MCHC 32.5 g/dL (31.0-37.0); MCV 97.4 fL (80.0-100.0); Monocytes # (A) 0.5 k/uL (0-1.0); Monocytes % (A) 7 %; Neutrophils # (A) 4.7 k/uL (1.3-7.7); Neutrophils % (A) 66 %; RDW 13.7 % (11.5-15.5); WBC 7.2 k/uL (3.8-10.6); WBC (Perox) 7.26
[2017-07-15 22:42] LABS: Calcium 9.6 mg/dL (8.4-10.2); Potassium 4.4 mmol/L (3.5-5.1); Total Bilirubin 0.4 mg/dL (0.2-1.3)
[2017-07-15 22:50] LABS: Prothrombin Time 9.8 sec (9.0-12.0)
[2017-07-15 23:01] LABS: Partial Thromboplastin Time 22.6 sec (22.0-30.0)
[2017-07-15] MEDS ORDERED: INSULIN REGULAR 100 UNIT/ML VIAL SQ STA (23:23)
[2017-07-15] MEDS ORDERED: MECLIZINE 25 MG TAB PO PRN (23:33)
[2017-07-15] MEDS ORDERED: NITROGLYCERIN SL TABS 0.4 MG TAB SUBLINGUAL PRN (23:33)
[2017-07-15] MEDS ORDERED: ONDANSETRON ODT 4 MG TAB PO PRN (23:33)
[2017-07-15 23:35] LABS: Amorphous Sediment,Urine Rare /hpf; Appearance,Urine Cloudy (Clear); Bacteria,Urine Few /hpf; Bilirubin,Urine Negative (Negative); Glucose,Urine (UA) 4+ (Negative); Ketones,Urine Negative (Negative); Leukocyte Esterase,Urine Large (Negative); Mucus,Urine Rare /hpf; Nitrite,Urine Negative (Negative); PH, Urine 7.5 (5.0-8.0); Particle Count 17348; Protein,Urine 2+ (Negative); RBC,Urine 8 /hpf (0-5); Specific Gravity,Urine 1.011 (1.001-1.035); Squamous Epithelial Cell,Urine 12 /hpf (0-4); UA Billing (MACRO vs. MICRO) MICRO; Urobilinogen,Urine <2.0 mg/dL (<2.0); WBC,Urine 119 /hpf (0-5)
[2017-07-16 00:07] LABS: Glucose,Whole Blood >600 mg/dL (75-99)
[2017-07-16] MEDS ORDERED: INSULIN REGULAR 100 UNIT in SODIUM CHLORIDE 0.9% 100 ML IV ONE (00:17)
[2017-07-16 01:26] LABS: Glucose,Whole Blood 536 mg/dL (75-99)
[2017-07-16 02:05] LABS: Glucose,Whole Blood 453 mg/dL (75-99)
[2017-07-16 02:29] LABS: Glucose,Whole Blood 380 mg/dL (75-99)
[2017-07-16 03:01] LABS: Glucose,Whole Blood 285 mg/dL (75-99)
[2017-07-16 04:13] LABS: Glucose,Whole Blood 104 mg/dL (75-99)
[2017-07-16 05:06] LABS: Glucose,Whole Blood 58 mg/dL (75-99)
[2017-07-16 05:38] LABS: Glucose,Whole Blood 86 mg/dL (75-99)
[2017-07-16 05:47] LABS: Creatine Kinase MB 10.8 ng/mL (0.0-2.4); Troponin I 8.14 ng/mL (0.000-0.034)
[2017-07-16 06:14] LABS: Glucose,Whole Blood 98 mg/dL (75-99)
[2017-07-16 06:58] LABS: Glucose,Whole Blood 107 mg/dL (75-99)
[2017-07-16] MEDS ORDERED: CARVEDILOL 12.5 MG TAB PO SCH (07:30)
[2017-07-16] MEDS ORDERED: MAGNEBIND PO SCH (07:30)
[2017-07-16] MEDS ORDERED: HEPARIN SODIUM,PORCINE 5,000 UNIT/ML 1 ML VIAL IV PRN (08:03)
[2017-07-16] MEDS ORDERED: HEPARIN SODIUM,PORCINE 5,000 UNIT/ML 1 ML VIAL IV ONE (08:03)
[2017-07-16 08:50] LABS: Basophils % (A) 1 %; CH 31.7; CHCM 33.1; Eosinophils # (A) 0.5 k/uL (0-0.7); Eosinophils % (A) 6 %; HCT 31.4 % (34.0-46.0); HDW 2.52; HGB 10.2 gm/dL (11.4-16.0); Luc # (Auto) 0.28; Luc % (Auto) 4; Lymphocytes # (A) 1.6 k/uL (1.0-4.8); Lymphocytes % (A) 20 %; MCH 31.4 pg (25.0-35.0); MCHC 32.6 g/dL (31.0-37.0); MCV 96.2 fL (80.0-100.0); Mean Platelet Volume 8.1; Monocytes # (A) 0.5 k/uL (0-1.0); Monocytes % (A) 6 %; Neutrophils # (A) 4.8 k/uL (1.3-7.7); Neutrophils % (A) 63 %; RBC 3.27 m/uL (3.80-5.40); RDW 14.4 % (11.5-15.5); WBC 7.6 k/uL (3.8-10.6)
[2017-07-16 08:58] LABS: Partial Thromboplastin Time 22.2 sec (22.0-30.0); Prothrombin Time 10.1 sec (9.0-12.0)
[2017-07-16] MEDS ORDERED: DARBEPOETIN ALFA 40 MCG/0.4 ML SYRINGE SQ SCH (09:00)
[2017-07-16] MEDS ORDERED: INSULIN GLARGINE 100 UNIT/ML 10 ML VIAL SQ SCH (09:00)
[2017-07-16 09:12] LABS: Glucose,Whole Blood 143 mg/dL (75-99)
[2017-07-16] MEDS: HEPARIN SODIUM,PORCINE/D5W PMX 25,000 UNIT in DEXTROSE/WATER 1 500ML.BAG IV SCH (09:43)
--- NOTE | 2017-07-16 09:49 | CONS ---
DATE OF CONSULTATION: 07/16/2017 REASON FOR CONSULTATION: Endstage renal disease. HISTORY OF PRESENT ILLNESS: Patient is a 72-year-old female with history of endstage renal disease on hemodialysis on Monday, , Monday schedule. Patient was dialyzed on Monday as outpatient as she had changed her timing for an event. Patient tolerated her treatment fairly well. She was admitted to the hospital with chest pain and her troponin was elevated at 8 and she will be started on IV heparin. Cardiology is on consult. Blood sugars were also elevated more than 600 at the time of admission. Currently blood sugar is at 107 and 143. PAST MEDICAL HISTORY: Endstage renal disease, diabetes, anemia of chronic disease, CKD bone mineral disorder, coronary artery disease, previous myocardial infarction, hyperlipidemia, hypertension, cataracts. PAST SURGICAL HISTORY: Appendectomy, cholecystectomy, cardiac catheterization, AV fistula with revision left upper arm, previous cardiac stent and stenting of LAD recently on 11/20/2016. SOCIAL HISTORY: Patient is an ex-smoker, no history of drug abuse or alcohol abuse. Medications prior to admission include: Vitamin D3, iron, PhosLo, insulin, Celexa, Imdur, Lasix, Zestril, Lipitor, Plavix, Nitrostat, Aranesp, Zofran. ALLERGIES: GLYBURIDE. REVIEW OF SYSTEMS: As per HPI, other systems negative. No fever, chills, abdominal pain, diarrhea. On examination, patient is currently comfortable, awake. She is not in any acute distress. Blood pressure is 145/67, heart rate is 99 per minute. She is afebrile. Examination of the heart: S1, S2. Examination of lungs: Bilateral breath sounds are heard. Abdomen is soft, nontender. Examination of lower extremities shows trace edema bilaterally. [employer] exam is grossly intact. Labs show hemoglobin of 10.2 g/dL. Troponin was 8.1. Potassium 4.4 mEq/L. ASSESSMENT: 1. Endstage renal disease on hemodialysis regularly on a Monday, , Monday schedule, but switched to Monday, Monday and Monday for last few days. We will plan for dialysis tomorrow. 2. Chest pain with elevation in troponin being started on IV heparin. Cardiology is on consult. If she is scheduled for cardiac cath patient will be dialyzed after the catheterization tomorrow. 3. Anemia of chronic disease. 4. Diabetes with significant hyperglycemia at the time of admission currently improved. 5. Volume overload. I will dialyze the patient tomorrow. Will try to increase UF as tolerated. 6. Coronary artery disease with previous coronary artery stenting and previous myocardial infarction. MTDD
[2017-07-16] MEDS: CITALOPRAM HYDROBROMIDE 20 MG TAB PO SCH ×2 (10:12→12:45)
[2017-07-16] MEDS: CYANOCOBALAMIN 500 MCG TAB PO SCH ×2 (10:12→12:45)
[2017-07-16] MEDS: CLOPIDOGREL 75 MG TAB PO SCH (10:12)
[2017-07-16] MEDS: CHOLECALCIFEROL 1,000 UNIT TAB PO SCH ×2 (10:13→12:45)
[2017-07-16] MEDS: FOLIC ACID-VIT B COMPLEX-VIT C 1 CAP PO SCH ×2 (10:13→12:45)
[2017-07-16] MEDS: FERROUS SULFATE 325 MG TAB PO SCH ×2 (10:13→21:06)
[2017-07-16] MEDS: ASPIRIN 81 MG CHEW PO SCH (10:13)
[2017-07-16] MEDS: FUROSEMIDE 40 MG TAB PO SCH (10:14)
[2017-07-16] MEDS: NITROGLYCERIN OINT 1 INCH/GM PACKET TOPICAL SCH ×4 (10:16→23:57)
[2017-07-16 10:23] LABS: Glucose,Whole Blood 164 mg/dL (75-99)
[2017-07-16] MEDS: CALCIUM ACETATE 667 MG CAP PO SCH ×3 (10:53→18:04)
[2017-07-16] MEDS: ISOSORBIDE MONONITRATE ER 30 MG TAB.ER.24H PO SCH (10:54)
[2017-07-16] MEDS ORDERED: ONDANSETRON 4 MG/2 ML VIAL IVP PRN (11:05)
[2017-07-16] MEDS: INSULIN GLARGINE 100 UNIT/ML 10 ML VIAL SQ SCH (11:38)
--- NOTE | 2017-07-16 12:22 | P.CRDCN ---
History of Present Illness Consult reason: non-Q-wave NM History of present illness: Patient presented with midsternal chest discomfort with casual walking This is a 72-year-old female who started complaining of shortness of breath and chest discomfort which is somewhat pleuritic in nature. It was recurrent. No dizziness no loss of consciousness no palpitations he was also worse with exertion Review of systems: No fever chills or rigors, no cough, phlegm or expectoration , no nausea, vomiting or diarrhea, no hematuria, dysuria, no musculoskeletal complaints, no strokes or seizures, no skin lesions. Upon admission her blood pressure was elevated at 174/72, 181/75 and 181/75 mmHg Past medical history End-stage kidney disease on dialysis, hemodialysis Monday Diabetes, anemia of chronic disease, COPD bone mineral disorder, known coronary artery disease, dyslipidemia, hypertension Past surgical history of appendectomy, cholecystectomy, cardiac catheterization in the past, AV fistula with revision in the left upper arm, previous coronary stenting of the LAD in November 2016 Social history she is stop smoking no history of alcohol or drug use Medication list was reviewed and is documented in the chart On examination she is afebrile 98.1F, pulse rate in the 60s, respirations are normal, blood pressure 145/67 mmHg normal pulse ox Breath sounds are reduced bilaterally but there are no rhonchi no crackles Heart sounds are normal normal S1 normal S2 no murmurs or gallops Abdomen is soft nontender Extremities warm no edema Labs are reviewed. Hemoglobin 10.5, sodium 135, potassium 4.4, BUN 43, creatinine chronically elevated 5.7, patient on dialysis, stage V chronic kidney disease First troponin was 0.07 to the next troponin was greater than 8.0 Elevated glucose levels in the 600s, bicarb 25 and and 17 ECG shows sinus rhythm normal [place] [address] depression in the lateral precordial leads and the inferior leads Chest x-ray shows pulmonary venous congestion Impression Acute myocardial infarction, non-Q-wave NM, second troponin is 8.0, ST depression noted about a millimeter inferior and lateral precordial leads and subtly also in high lateral leads Advanced stage V chronic kidney disease on dialysis Diabetes, elevated blood sugars on admission Hypertension, elevated blood pressures upon admission Plan Continue nitro paste for now until tomorrow twice a day, continue IV heparin until tomorrow and then discontinue at 6:00 in the morning, continue aspirin and statins, Increase carvedilol to 25 mg twice daily I will speak to Dr. Caruso tomorrow for proceeding with coronary angiography Patient remain nothing by mouth except medications Heparin to be stopped at 6 AM tomorrow Past Medical History Past Medical History: Diabetes Mellitus, Dialysis, Hyperlipidemia, Hypertension , Myocardial Infarction (NM), Renal Disease Additional Past Medical History / Comment(s): chronic renal failure stage V with dialysis 3 times a week-lt arm fistula, IDDM, pt states "per dialysis nurse who performed EKG and told pt she had an abnormal EKG and had had a NM in the past" but physician has never confirmed. NSTEMI 03/14/16, peripheral neuropathy bilateral feet cataracts bilaterally, UTI'S. Last Myocardial Infarction Date:: 06/07/2016 History of Any Multi-Drug Resistant Organisms: None Reported Past Surgical History: Appendectomy, Cholecystectomy, Heart Catheterization, Heart Catheterization With Stent Additional Past Surgical History / Comment(s): 03/15/16 PTCA with stent to mid LAD,06-07-16 HEART CATH STENT TO PROX RCA. Restented mid LAD 11/20/16 A/V fistula with revision L upper arm Past Anesthesia/Blood Transfusion Reactions: No Reported Reaction Date of Last Stent Placement:: 06/07/16 Past Psychological History: Depression Additional Psychological History / Comment(s): Pt resides with her son. She does not use any assistive device and she can drive. Smoking Status: Former smoker Past Alcohol Use History: None Reported Additional Past Alcohol Use History / Comment(s): Pt states she started smoking at age 21 (1965) and was a 5 cigarette a day smoker- she only smoked for about 6 months. Past Drug Use History: None Reported - Past Family History Father Family Medical History: Diabetes Mellitus Additional Family Medical History / Comment(s): Father of diabetic complications in his 40's Mother Family Medical History: Cancer, Myocardial Infarction (NM) Additional Family Medical History / Comment(s): Cancer unknown type. Mother of a NM in her early 50's Medications and Allergies Home Medications Medication Instructions Recorded Confirmed Type Folic Acid-Vit B Complex-Vit C 1 cap PO DAILY 06/06/16 07/16/17 History [Nephrocaps] Citalopram Hydrobromide [CeleXA] 20 mg PO DAILY 08/05/16 07/16/17 History Isosorbide Mononitrate ER [Imdur] 30 mg PO DAILY 11/19/16 07/16/17 History Furosemide [Lasix] 40 mg PO DAILY 04/21/17 07/16/17 History Lisinopril [Zestril] 10 mg PO DAILY 04/21/17 07/16/17 History Meclizine [Antivert] 25 mg PO BID PRN 04/21/17 07/16/17 History Insulin Glargine,Hum.rec.anlog 40 unit SQ DAILY 06/03/17 07/16/17 History [Lantus Solostar] Allergies Allergy/AdvReac Type Severity Reaction Status Date / Time glyburide [From Diabeta] Allergy Rash/Hives Verified 07/16/17 09:13 Physical Exam Vitals: Vital Signs Temp Pulse Pulse Pulse Resp BP BP 07/16/17 08:00 98.1 F 68 68 18 145/67 07/16/17 01:51 98.9 F 99 18 154/56 07/16/17 01:15 70 18 171/72 07/15/17 23:40 72 16 167/69 07/15/17 22:48 78 18 181/75 07/15/17 22:13 78 18 181/75 07/15/17 21:25 98.2 F 78 18 174/72 Pulse Ox 07/16/17 08:00 97 07/16/17 01:51 98 07/16/17 01:15 96 07/15/17 23:40 95 07/15/17 22:48 95 07/15/17 22:13 95 07/15/17 21:25 97 Intake and Output 07/15/17 07/16/17 07/16/17 22:59 06:59 14:59 Intake Total 11.464 0 Output Total 0 0 Balance 11.464 0 Intake: Intake, IV Titration 11.464 0 Amount Insulin Regular 100 unit 11.464 0 In Sodium Chloride 0.9% 100 ml @ 3 UNIT/HR 3.03 mls/hr IV .Q24H ONE Rx#: [id number] Output: Urine 0 0 Other: Weight 83.915 kg 86 kg 86 kg Patient Weight 07/17/17 06:59 Weight 86 kg Results 07/16/17 08:32 08/26/17 22:05 Cardiac Enzymes 07/15/17 07/15/17 07/16/17 Range/Units 22:05 22:05 04:15 AST 23 (14-36) U/L CK-MB (CK-2) 10.8 H* (0.0-2.4) ng/mL Troponin I 0.072 H* 8.140 H* (0.000-0.034) ng/mL Coagulation 07/15/17 07/16/17 Range/Units 22:05 08:32 PT 9.8 10.1 (9.0-12.0) sec APTT 22.6 22.2 (22.0-30.0) sec CBC 07/15/17 07/16/17 Range/Units 22:05 08:32 WBC 7.2 7.6 (3.8-10.6) k/uL RBC 3.30 L 3.27 L (3.80-5.40) m/uL Hgb 10.5 L 10.2 L (11.4-16.0) gm/dL Hct 32.2 L 31.4 L (34.0-46.0) % Plt Count 227 201 (150-450) k/uL Comprehensive Metabolic Panel 07/15/17 Range/Units 22:05 Sodium 135 L (137-145) mmol/L Potassium 4.4 (3.5-5.1) mmol/L Chloride 93 L (98-107) mmol/L Carbon Dioxide 25 (22-30) mmol/L BUN 43 H (7-17) mg/dL Creatinine 5.70 H* (0.52-1.04) mg/dL Glucose 696 H* (74-99) mg/dL Calcium 9.6 (8.4-10.2) mg/dL AST 23 (14-36) U/L ALT 34 (9-52) U/L Alkaline Phosphatase 127 H (38-126) U/L Total Protein 7.0 (6.3-8.2) g/dL Albumin 4.1 (3.5-5.0) g/dL Current Medications Generic Name Dose Route Start Last Admin Trade Name Freq PRN Reason Stop Dose Admin Aspirin 81 mg 07/16/17 09:00 07/16/17 10:13 Aspirin PO 81 mg DAILY [facility] Administration Atorvastatin Calcium 80 mg 07/16/17 21:00 Lipitor PO HS JONH Calcium Acetate 1,334 mg 07/16/17 07:30 07/16/17 10:53 Phoslo PO Not Given AC-TID [facility] Carvedilol 12.5 mg 07/16/17 07:30 07/16/17 10:10 Coreg PO 12.5 mg BID-W/MEALS [facility] Administration Cholecalciferol 1,000 unit 07/16/17 09:00 Vitamin D3 PO DAILY [facility] Citalopram Hydrobromide 20 mg 07/16/17 09:00 Celexa PO DAILY [facility] Clopidogrel Bisulfate 75 mg 07/16/17 09:00 07/16/17 10:12 Plavix PO 75 mg DAILY [facility] Administration Cyanocobalamin 1,000 mcg 07/16/17 09:00 Vitamin B-12 PO DAILY [facility] Darbepoetin Luis Manuel 40 mcg 07/16/17 09:00 Aranesp SQ Q7D@0900 [facility] Ferrous Sulfate 325 mg 07/16/17 09:00 07/16/17 10:13 Feosol PO 325 mg BID [facility] Administration Furosemide 40 mg 07/16/17 09:00 07/16/17 10:14 Lasix PO 40 mg DAILY [facility] Administration Heparin Sodium (Porcine) 0 unit 07/16/17 08:03 Heparin IV PER PROTOCOL PRN Low PTT Protocol Heparin Sodium/Dextrose 25,000 500 mls @ 20 mls/hr 07/16/17 08:15 07/16/17 09 :43 unit/ IV Solution IV 11.63 units/kg/hr .Q24H [facility] 20 mls/hr Protocol Administration 11.63 UNITS/KG/HR Insulin Glargine 15 unit 07/16/17 11:29 07/16/17 11:38 Lantus SQ 15 unit DAILY [facility] Administration Insulin Human Lispro 0 unit 07/16/17 12:00 Humalog SQ Q4HR [facility] Protocol Isosorbide Mononitrate 30 mg 07/16/17 09:00 07/16/17 10:54 Imdur PO Not Given DAILY [facility] Meclizine HCl 25 mg 07/15/17 23:33 Antivert PO BID PRN Vertigo Multivit/Ca Carb/B Cmplx/FA/Prenat 1 each 07/16/17 09:00 Nephrocaps PO DAILY [facility] Nitroglycerin 0.4 mg 07/15/17 23:33 Nitrostat SUBLINGUAL Q5M PRN Chest Pain Nitroglycerin 1 inch 07/16/17 09:00 07/16/17 10:16 Nitro-Bid Oint TOPICAL 1 inch Q6HR JONH Administration Ondansetron HCl 4 mg 07/15/17 23:33 Zofran Odt PO Q8HR PRN Nausea vomiting Ondansetron HCl 4 mg 07/16/17 11:05 Zofran IVP Q6HR PRN Nausea And Vomiting Intake and Output 07/15/17 07/16/17 07/16/17 22:59 06:59 14:59 Intake Total 11.464 0 Output Total 0 0 Balance 11.464 0 Intake: Intake, IV Titration 11.464 0 Amount Insulin Regular 100 unit 11.464 0 In Sodium Chloride 0.9% 100 ml @ 3 UNIT/HR 3.03 mls/hr IV .Q24H ONE Rx#: [id number] Output: Urine 0 0 Other: Weight 83.915 kg 86 kg 86 kg Patient Weight 07/17/17 06:59 Weight 86 kg 07/16/17 08:32 07/15/17 22:05
[2017-07-16 12:33] LABS: Creatine Kinase MB 15.5 ng/mL (0.0-2.4)
[2017-07-16 12:37] LABS: Glucose,Whole Blood 198 mg/dL (75-99)
[2017-07-16] MEDS: INSULIN LISPRO (humaLOG) 300 UNIT/3 ML VIAL SQ SCH ×3 (12:44→21:07)
[2017-07-16 13:52] LABS: Hemoglobin A1C 9.2 % (4.2-6.1)
[2017-07-16 18:02] LABS: Glucose,Whole Blood 285 mg/dL (75-99)
[2017-07-16] MEDS: CARVEDILOL 12.5 MG TAB PO SCH (18:04)
--- NOTE | 2017-07-16 18:14 | HP ---
DATE OF ADMISSION: 07/15/17 I am covering for Dr. Malone. CHIEF COMPLAINT: Shortness of breath. HISTORY OF PRESENT ILLNESS: This 72 -year-old woman with past medical history of diabetes Type 2, history of hypertension, hyperlipidemia, history of myocardial infarction, history of chronic kidney disease Stage III being followed by Dr. Malone in the outpatient setting was admitted to the hospital with complaints of shortness of breath. The patient also had chest heaviness in the lower part of the chest. There is no history of any fevers, rigors, or chills. No history of headache, loss of consciousness or seizures. The patient had an abnormal EKG. The patient came to [facility]. Troponins elevated up to 23. Cardiology is consulted and cardiac catheterization is being planned at this time. A chest x-ray done on admission showed mild cardiomegaly, stable pulmonary disease. The blood sugar elevated up to 696. Past medical history of diabetes mellitus, hypertension, hyperlipidemia, history of myocardial infarction, history of chronic renal failure. Mediations prior to admission include: Home medications are: 1. Zofran 4 mg q8h prn. 2. Nitrostat 0.4 sublingual prn. 3. Antivert 25 mg po b.i.d. 4. Zestril 10 mg po daily. 5. Imdur 30 mg daily. 6. Lantus 40 units subcu daily. 7. Lasix 40 mg daily. 8. Nephrocaps one po daily. 9. Plavix 75 mg po daily. 10. Celexa 20 mg po daily. 11. Lipitor 80 mg po q.h.s. ALLERGIES: GLYBURIDE. FAMILY HISTORY: History of diabetes mellitus in the family. SOCIAL HISTORY: Previous history of smoking. No history of current smoking or alcohol intake. REVIEW OF SYSTEMS: HEENT: No diminished vision and no diminished hearing. Cardiovascular system: As mentioned earlier. Respiratory: as mentioned earlier. GI: No nausea or vomiting. : As mentioned earlier. Nervous system: No numbness, weakness. Allergy/Immunology: No asthma or hayfever. Musculoskeletal: As mentioned earlier. Hematology/oncology: No history of anemia. Endocrine: Diabetes mellitus. Constitutional: As mentioned earlier. Dermatology: Negative. Rheumatology: Negative. Psychiatry: As mentioned earlier. PHYSICAL EXAMINATION: The patient is alert, oriented times three. Pulse 60. Blood pressure 120/66. Respiratory rate 20, temperature 98. Pulse ox 98% on 2 L. HEENT: Conjunctivae normal. Oral mucosa moist. NECK: No JVD. No carotid bruit. No lymph node enlargement. Cardiovascular: S1, S2 muffled. No S3, No S4. Respiratory: Breath sounds diminished at the bases. A few scattered rhonchi and no crackles. Abdomen is soft, nontender. No mass palpable. Legs: No edema. No swelling. Nervous system: Higher functions as mentioned earlier. Moves all four limbs. No focal motor deficits. Lymphatics: No lymph nodes palpable in the neck, axilla or groin. Skin: No ulcer, rash or bleeding. LABS: Creatinine 5.70, glucose 696, and 198. Troponin 0.072 . ASSESSMENT: 1. Acute non-ST segment elevation myocardial infarction. 2. Troponin 23. 3. Diabetes mellitus, type 2, uncontrolled. 4. Chronic renal failure, Stage V on hemodialysis. 5. Urinary tract infection. 6. Anemia. Normocytic anemia, chronic disease. 7. Hypertension. 8. Hyperlipidemia. RECOMMENDATIONS AND DISCUSSION: In this 72 -year-old woman who presented with multiple complex medical issues, we will monitor the patient closely. Continue the current medications. Continue symptomatic treatment. Antiplatelet agents. Otherwise, Lipitor, beta blockers. Cardiology consultation. Possible cardiac catheterization. Continue insulin. Monitor closely. Resume the home medications, Lantus. See orders for details. Guarded prognosis because of multiple complex medical issues. Further recommendations to follow. Also recommend urine culture and empiric antibiotics as well. Dr. Malone will follow. LEA
[2017-07-16 20:35] LABS: Glucose,Whole Blood 230 mg/dL (75-99)
[2017-07-16] MEDS: ATORVASTATIN 80 MG TAB PO SCH (21:06)
[2017-07-17 05:34] LABS: Glucose,Whole Blood 165 mg/dL (75-99)
[2017-07-17] MEDS: INSULIN LISPRO (humaLOG) 300 UNIT/3 ML VIAL SQ SCH ×3 (05:48→17:27)
[2017-07-17] MEDS: CLOPIDOGREL 75 MG TAB PO SCH (06:34)
[2017-07-17] MEDS: FERROUS SULFATE 325 MG TAB PO SCH ×3 (06:34→19:41)
[2017-07-17] MEDS: HEPARIN SODIUM,PORCINE/D5W PMX 25,000 UNIT in DEXTROSE/WATER 1 500ML.BAG IV SCH (06:34)
[2017-07-17] MEDS: FOLIC ACID-VIT B COMPLEX-VIT C 1 CAP PO SCH (06:34)
[2017-07-17] MEDS: ASPIRIN 81 MG CHEW PO SCH (06:34)
[2017-07-17] MEDS: CYANOCOBALAMIN 500 MCG TAB PO SCH (06:34)
[2017-07-17] MEDS: CARVEDILOL 12.5 MG TAB PO SCH ×2 (06:34→17:30)
[2017-07-17] MEDS: NITROGLYCERIN OINT 1 INCH/GM PACKET TOPICAL SCH ×3 (06:34→17:28)
[2017-07-17] MEDS: CHOLECALCIFEROL 1,000 UNIT TAB PO SCH (06:35)
[2017-07-17] MEDS: CITALOPRAM HYDROBROMIDE 20 MG TAB PO SCH (06:35)
[2017-07-17] MEDS: ISOSORBIDE MONONITRATE ER 30 MG TAB.ER.24H PO SCH (06:36)
[2017-07-17 07:07] LABS: Calcium 8.8 mg/dL (8.4-10.2); Potassium 4.3 mmol/L (3.5-5.1)
[2017-07-17 07:08] LABS: Basophils % (A) 1 %; CH 30.4; CHCM 31.8; Eosinophils # (A) 0.4 k/uL (0-0.7); Eosinophils % (A) 6 %; HCT 29.7 % (34.0-46.0); HDW 2.47; HGB 9.7 gm/dL (11.4-16.0); Luc # (Auto) 0.26; Luc % (Auto) 4; Lymphocytes # (A) 1.6 k/uL (1.0-4.8); Lymphocytes % (A) 24 %; MCH 31.3 pg (25.0-35.0); MCHC 32.5 g/dL (31.0-37.0); MCV 96.3 fL (80.0-100.0); Mean Platelet Volume 7.7; Monocytes # (A) 0.4 k/uL (0-1.0); Monocytes % (A) 6 %; Neutrophils # (A) 4.2 k/uL (1.3-7.7); Neutrophils % (A) 61 %; RBC 3.09 m/uL (3.80-5.40); RDW 13.9 % (11.5-15.5); WBC 6.9 k/uL (3.8-10.6); WBC (Perox) 7.09
[2017-07-17] MEDS: CALCIUM ACETATE 667 MG CAP PO SCH ×4 (07:47→19:41)
[2017-07-17] MEDS ORDERED: ATORVASTATIN 80 MG TAB PO STA (08:33)
[2017-07-17] MEDS ORDERED: ASPIRIN 325 MG TAB PO STA (08:33)
[2017-07-17] MEDS ORDERED: NITROGLYCERIN SL TABS 0.4 MG TAB SUBLINGUAL PRN (08:33)
[2017-07-17] MEDS ORDERED: ALPRAZolam 0.5 MG TAB PO PRN (08:33)
[2017-07-17] MEDS ORDERED: SODIUM CHLORIDE 0.9% 1,000 ML in EMPTY BAG 1 BAG IV ONE (08:33)
[2017-07-17] MEDS ORDERED: ALPRAZolam 0.25 MG TAB PO PRN (08:33)
[2017-07-17] MEDS ORDERED: LIDOCAINE 2% INJ 20 MG/ML (20 ML MDV) ONE (10:47)
[2017-07-17] MEDS ORDERED: MIDAZOLAM 2 MG/2 ML VIAL ONE (10:55)
[2017-07-17] MEDS ORDERED: SODIUM CHLORIDE 0.9% 500 ML IV ONE (11:00)
--- NOTE | 2017-07-17 11:07 | PN ---
Patient is seen for followup for end-stage renal disease. She is scheduled for cardiac catheterization today. The patient will be dialyzed before catheterization. At this time, she denied any chest pain. No significant shortness of breath. On examination, blood pressure is 135/68, heart rate 67 per minute. She is afebrile. EXAMINATION OF THE HEART: S1 and S2. EXAMINATION OF THE LUNGS: Bilateral breath sounds are heard. ABDOMEN: Soft, nontender. Examination of the lower extremities shows trace edema bilaterally. SIGNAL SYSTEM TESTING MAINTAINER exam is grossly intact. Labs show potassium of 4.3, sodium 136. Hemoglobin 9.7 grams/dL. ASSESSMENT: 1. End-stage renal disease on hemodialysis on a Monday, , Monday schedule as routinely on a routine basis. However, patient had rearranged her treatment as outpatient recently and we will arrange for hemodialysis treatment today. 2. Non-ST elevation myocardial infarction, scheduled for cardiac catheterization today. 3. Coronary artery disease with previously coronary stents and previously history of myocardial infarction. 4. Anemia of chronic disease, will start Aranesp. PLAN: Start Aranesp and we will plan to dialyze the patient today after catheterization. LEA
[2017-07-17] MEDS ORDERED: MIDAZOLAM 2 MG/2 ML VIAL IVP ONE (11:19)
[2017-07-17] MEDS ORDERED: LIDOCAINE 2% INJ 20 MG/ML SQ ONE (11:24)
[2017-07-17] MEDS ORDERED: IODIXANOL 320 MG/ML 100 ML INTRAARTER ONE (12:22)
[2017-07-17] MEDS ORDERED: RX INFO: IV CONTRAST WAS GIVEN 1 EACH MISC MISCELLANE PRN (12:37)
[2017-07-17 12:53] LABS: Glucose,Whole Blood 258 mg/dL (75-99)
[2017-07-17] MEDS: FUROSEMIDE 40 MG TAB PO SCH (13:07)
[2017-07-17 14:00] VITALS: BMI 34.3
[2017-07-17 14:18] LABS: INR 1.1 (<1.2); Partial Thromboplastin Time 22.8 sec (22.0-30.0); Prothrombin Time 10.6 sec (9.0-12.0)
[2017-07-17 14:52] LABS: ALT 32 U/L (9-52); AST 35 U/L (14-36); Alkaline Phosphatase 87 U/L (38-126); Anion Gap 16 mmol/L; Blood Urea Nitrogen 57 mg/dL (7-17); Calcium 8.7 mg/dL (8.4-10.2); Carbon Dioxide 20 mmol/L (22-30); Chloride 98 mmol/L (98-107); Glucose 264 mg/dL (74-99); Magnesium 1.7 mg/dL (1.6-2.3); Potassium 4.4 mmol/L (3.5-5.1); Sodium 134 mmol/L (137-145); Total Bilirubin 0.3 mg/dL (0.2-1.3); Total Protein 5.6 g/dL (6.3-8.2)
[2017-07-17 15:18] LABS: Non-African American GFR(MDRD) 5 (>60 ml/min/1.73 sqM)
[2017-07-17 15:19] LABS: Hepatitis B Surface Ag Index 0.05
[2017-07-17 15:25] LABS: Hepatitis B Core IgM Index 0.13
[2017-07-17 15:37] LABS: Hepatitis C Virus IgG Ab Negative (Negative); Hepatitis C Virus IgG Index 0.04
--- NOTE | 2017-07-17 16:53 | US ---
EXAMINATION TYPE: US carotid duplex BILAT DATE OF EXAM: 07/17/2017 COMPARISON: NONE CLINICAL HISTORY: PreOp Cardiac Surgery. EXAM MEASUREMENTS: RIGHT: Peak Systolic Velocity (PSV) cm/sec ----- Right CCA: 60.1 ----- Right ICA: 84.5 ----- Right ECA: 112.9 ICA/CCA ratio: 1.4 RIGHT: End Diastole cm/sec ----- Right CCA: 7.8 ----- Right ICA: 16.4 ----- Right ECA: 7.9 LEFT: Peak Systolic Velocity (PSV) cm/sec ----- Left CCA: 71.1 ----- Left ICA: 84.0 ----- Left ECA: 78.8 ICA/CCA ratio: 1.2 LEFT: End Diastole cm/sec ----- Left CCA: 10.2 ----- Left ICA: 15.4 ----- Left ECA: 6.3 VERTEBRALS (direction of flow): Right Vertebral: Antegrade Left Vertebral: Antegrade Mild amount of plaque visualized on the right. Mild/moderate amount of plaque visualized in the left bulb. No elevated velocities. IMPRESSION: There is antegrade flow in the vertebral arteries. The images and measurements suggest 0 -50% stenosis in both internal carotid arteries and closer to 40% based on the images. Criteria for Assigning % of Stenosis / Diameter reduction (Estimation based on the indirect measurements of the internal carotid artery velocities (ICA PSV). 1. Normal (no stenosis)=ICA PSV < 125 cm/s: ratio < 2.0: ICA EDV<40 cm/s. 2. Less than 50% stenosis=ICA PSV < 125 cm/s: ratio < 2.0: ICA EDV<40 cm/s. 3. 50 to 69% stenosis=ICA PSV of 125 to 230 cm/s: ration 2.0 ? 4.0: ICA EDV 40-100 cm/s. 4. Greater than 70% stenosis to near occlusion= ICA PSV > 230 cm/s: ratio > 4.0: ICA EDV > 100 cm/s. 5. Near occlusion= ICA PSV velocities may be low or undetectable: variable ratio and ICA EDV. 6. Total occlusion=unable to detect flow.
[2017-07-17 17:02] LABS: Glucose,Whole Blood 211 mg/dL (75-99)
--- NOTE | 2017-07-17 17:54 | P.GSCN ---
<Bon Ardon - Last Filed: 07/17/17 17:42> History of Present Illness Consult date: 07/17/17 Reason for Consult: Non-ST elevation myocardial infarction, history of coronary artery disease with previously placed stents, history of myocardial infarction. Requesting physician: Migel Gross History of present illness: This is a 72-year-old female patient who is followed by Dr. Jasbir Malone on an outpatient basis. She has a past history of multiple medical conditions including diabetes mellitus type 2, hypertension, hyperlipidemia, history of myocardial infarction, history of coronary artery disease with previous stent placement to her mid left anterior descending coronary artery in February 2016, stent placement to her right coronary artery in May 2016, and restenting of her mid left LAD in November 2016. She also has a past medical history of end- stage renal disease and receives hemodialysis treatments on Tuesdays and Saturdays, obesity, anemia of chronic disease, frequent bladder infections and peripheral neuropathy to her feet. On 07/15/2017 while visiting a relative's house for a family reunion she was coming down a set of stairs and developed some midsternal chest pain with breathing. Her chest pain was not relieved with rest. The chest pain progressively got worse throughout the day and she subsequently presented to the emergency department around 9 PM that same day. She denied any complaint of fever, nausea or vomiting, or loss of consciousness. A 12-lead EKG was completed in the emergency department which showed normal sinus rhythm with abnormal ST changes to her lateral leads. She also had serial troponins done and were as high as 23.0 ng/ml, her BNP was 14, 600 pg/ml, her hemoglobin A1c was 9.2% and glucose was 696. Subsequently due to the patient's presenting symptoms and history of coronary artery disease she was evaluated by Dr. Forbes from cardiology. She underwent a heart catheterization today 07/17/2017 which showed her to have triple-vessel coronary artery disease. Subsequently Dr. Faisal Granados from cardiothoracic surgery was consulted. Review of Systems 14 point review of systems was completed and was negative except as mentioned in the HPI. Past Medical History Past Medical History: Coronary Artery Disease (CAD), Chest Pain / Angina, Diabetes Mellitus, Dialysis (Hemodialysis Tuesdays, and Monday schedule), Hyperlipidemia, Hypertension, Myocardial Infarction ([place]), Renal Disease Additional Past Medical History / Comment(s): End-stage renal disease with dialysis 3 times a week-left arm AV fistula, IDDM, Non-STEMI 03/14/16, peripheral neuropathy bilateral feet cataracts bilaterally, frequent UTI'S, stress incontinence. Last Myocardial Infarction Date:: 07/15/2017 History of Any Multi-Drug Resistant Organisms: None Reported Past Surgical History: Appendectomy, Cholecystectomy, Heart Catheterization, Heart Catheterization With Stent, Tonsillectomy Additional Past Surgical History / Comment(s): 03/15/16 PTCA with stent to mid LAD,06-07-16 HEART CATH STENT TO PROX RCA. Restented mid LAD 11/20/16 A/V fistula with revision L upper arm, history of Lasix eye surgery and cataract removal. Past Anesthesia/Blood Transfusion Reactions: No Reported Reaction Date of Last Stent Placement:: 11/21/2016 Past Psychological History: Depression Additional Psychological History / Comment(s): Pt resides with her son. She does not use any assistive device and she can drive. Smoking Status: Former smoker (Quit over 50 years ago.) Past Alcohol Use History: None Reported Additional Past Alcohol Use History / Comment(s): Pt states she started smoking at age 21 (1965) and was a 5 cigarette a day smoker- she only smoked for about 6 months. Past Drug Use History: None Reported - Past Family History Father Family Medical History: Diabetes Mellitus Additional Family Medical History / Comment(s): Father of diabetic complications in his 40's Mother Family Medical History: Cancer, Myocardial Infarction ([place]) Additional Family Medical History / Comment(s): Cancer unknown type. Mother of a IL in her early 50's Brother(s) Family Medical History: Cancer (Lung) Additional Family Medical History / Comment(s): Her brother from lung cancer and cirrhosis of the liver. Medications and Allergies Home Medications Medication Instructions Recorded Confirmed Type Folic Acid-Vit B Complex-Vit C 1 cap PO DAILY 06/06/16 07/16/17 History [Nephrocaps] Citalopram Hydrobromide [CeleXA] 20 mg PO DAILY 08/05/16 07/16/17 History Isosorbide Mononitrate ER [Imdur] 30 mg PO DAILY 11/19/16 07/16/17 History Atorvastatin [Lipitor] 80 mg PO HS #30 tab 11/22/16 07/16/17 Rx Clopidogrel [Plavix] 75 mg PO DAILY #30 tab 11/22/16 07/16/17 Rx Nitroglycerin Sl Tabs [Nitrostat] 0.4 mg SUBLINGUAL Q5M PRN #25 tab 11/22/16 Rx Furosemide [Lasix] 40 mg PO DAILY 04/21/17 07/16/17 History Meclizine [Antivert] 25 mg PO BID PRN 04/21/17 07/16/17 History Insulin Glargine,Hum.rec.anlog 40 unit SQ DAILY 06/03/17 07/16/17 History [Lantus Solostar] Ondansetron Odt [Zofran ODT] 4 mg PO Q8HR PRN #10 tab 06/24/17 07/16/17 Rx Calcium Acetate [PhosLo] 1,334 mg PO AC-TID cap 07/18/17 Rx Carvedilol [Coreg*] 25 mg PO BID-W/MEALS tab 07/18/17 Rx Cholecalciferol [Vitamin D3] 1,000 unit PO DAILY tab 07/18/17 Rx Cyanocobalamin [Vitamin B-12] 1,000 mcg PO DAILY tab 07/18/17 Rx Ferrous Sulfate [Iron (65 MG 325 mg PO BID-W/MEALS tab 07/18/17 Rx Elemental)] Allergies Allergy/AdvReac Type Severity Reaction Status Date / Time glyburide [From Diabeta] Allergy Rash/Hives Verified 07/16/17 09:13 Surgical - Exam Vital Signs Temp Pulse Resp BP Pulse Ox 98.2 F 78 18 174/72 97 07/15/17 21:25 07/15/17 21:25 07/15/17 21:25 07/15/17 21:25 07/15/17 21:25 - General well developed, well nourished, no distress, no pain, obese - Eyes PERRL, normal ocular movement - ENT Heart of hearing normal pinna, normal nares, normal mucosa, no congestion, decreased hearing, dentures (Does not wear her dentures.) - Neck No lymphadenopathy, no bruit heard to her right carotid. no masses, trachea midline, no venous distension carotid bruit: left - Respiratory Lung sounds are essentially clear throughout, diminished bilateral bases. Respirations are symmetrical and nonlabored. Oxygen saturations are 96% on room air. - Cardiovascular Regular rhythm and rate. S1 and S2 present, positive systolic murmur heard best to her second intercostal space right sternal border. Negative for S3 or gallop. No edema present. - Abdomen Abdomen is soft, nontender and nondistended. Active bowel sounds all 4 abdominal quadrants. No guarding, no organomegaly. - Genitourinary AV fistula with good thrill and bruit to her left upper arm. other - Rectum Deferred - Integumentary no rash, no growths, no abnormal pigmentation - Neurologic normal coordination, normal sensation - Musculoskeletal normal gait, normal posture - Psychiatric oriented to time, oriented to person, oriented to place, speech is normal, memory intact Results - Labs 07/17/17 06:26 07/17/17 13:48 Abnormal Lab Results - Last 24 Hours (Table) 07/16/17 07/16/17 07/16/17 Range/Units 11:25 13:52 18:01 RBC (3.80-5.40) m/uL Hgb (11.4-16.0) gm/dL Hct (34.0-46.0) % APTT 66.1 H (22.0-30.0) sec Sodium (137-145) mmol/L Carbon Dioxide (22-30) mmol/L BUN (7-17) mg/dL Creatinine (0.52-1.04) mg/dL Glucose (74-99) mg/dL POC Glucose (mg/dL) 285 H (75-99) mg/dL Hemoglobin A1c 9.2 H (4.2-6.1) % 07/16/17 07/17/17 07/17/17 Range/Units 20:33 05:33 06:26 RBC 3.09 L (3.80-5.40) m/uL Hgb 9.7 L (11.4-16.0) gm/dL Hct 29.7 L (34.0-46.0) % APTT (22.0-30.0) sec Sodium (137-145) mmol/L Carbon Dioxide (22-30) mmol/L BUN (7-17) mg/dL Creatinine (0.52-1.04) mg/dL Glucose (74-99) mg/dL POC Glucose (mg/dL) 230 H 165 H (75-99) mg/dL Hemoglobin A1c (4.2-6.1) % 07/17/17 07/17/17 Range/Units 06:26 12:48 RBC (3.80-5.40) m/uL Hgb (11.4-16.0) gm/dL Hct (34.0-46.0) % APTT (22.0-30.0) sec Sodium 136 L (137-145) mmol/L Carbon Dioxide 18 L (22-30) mmol/L BUN 56 H (7-17) mg/dL Creatinine 7.01 H* (0.52-1.04) mg/dL Glucose 177 H (74-99) mg/dL POC Glucose (mg/dL) 258 H (75-99) mg/dL Hemoglobin A1c (4.2-6.1) % Microbiology - Last 24 Hours (Table) 07/16/17 15:00 Urine Culture - Preliminary Urine,Voided Diabetes panel 07/16/17 07/17/17 Range/Units 11:25 06:26 Sodium 136 L (137-145) mmol/L Potassium 4.3 (3.5-5.1) mmol/L Chloride 102 (98-107) mmol/L Carbon Dioxide 18 L (22-30) mmol/L BUN 56 H (7-17) mg/dL Creatinine 7.01 H* (0.52-1.04) mg/dL Glucose 177 H (74-99) mg/dL Hemoglobin A1c 9.2 H (4.2-6.1) % Calcium 8.8 (8.4-10.2) mg/dL Calcium panel 07/17/17 Range/Units 06:26 Calcium 8.8 (8.4-10.2) mg/dL Pituitary panel 07/17/17 Range/Units 06:26 Sodium 136 L (137-145) mmol/L Potassium 4.3 (3.5-5.1) mmol/L Chloride 102 (98-107) mmol/L Carbon Dioxide 18 L (22-30) mmol/L BUN 56 H (7-17) mg/dL Creatinine 7.01 H* (0.52-1.04) mg/dL Glucose 177 H (74-99) mg/dL Calcium 8.8 (8.4-10.2) mg/dL Adrenal panel 07/17/17 Range/Units 06:26 Sodium 136 L (137-145) mmol/L Potassium 4.3 (3.5-5.1) mmol/L Chloride 102 (98-107) mmol/L Carbon Dioxide 18 L (22-30) mmol/L BUN 56 H (7-17) mg/dL Creatinine 7.01 H* (0.52-1.04) mg/dL Glucose 177 H (74-99) mg/dL Calcium 8.8 (8.4-10.2) mg/dL - Imaging Comments: Heart cath report and films reviewed with Dr. Granados. 2-D echo report from May 2017 reviewed. Chest x-ray: report reviewed, image reviewed EKG: image reviewed Assessment and Plan (1) Anemia of chronic disease Status: Acute (2) Coronary artery disease Status: Acute (3) Left carotid bruit Status: Acute (4) Congestive heart failure Status: Acute (5) Dyspnea Status: Acute (6) Elevated troponin I level Status: Acute (7) Hyperglycemia Status: Acute (8) ESRD (end stage renal disease) Status: Acute (9) Hyperglycemia Status: Acute (10) Hyperlipemia Status: Acute (11) NSTEMI (non-ST elevated myocardial infarction) Status: Acute Plan: Patient was seen and examined with Dr. Granados. Her chart and diagnostics were reviewed. Preoperative workup initiated. Dr. Granados discussed with the patient and her family the heart catheterization results and and felt the patient was a good candidate for coronary artery bypass surgery. She will need to be off Plavix for 5-7 days prior to undergoing surgery. We will plan on scheduling her for coronary artery bypass grafting surgery 3-4 vessels, with BARROS, endoscopic vein harvest, intraoperative transesophageal echocardiogram and epi-aortic scanning on , 07/27/2017 and stopping her Plavix this , 07/20/2017. Preoperative teaching with preoperative binder given to the patient. Dr. Granados did discuss with the patient and her family at the bedside the risks and benefits of the surgery. Thank you Dr. Gross for this referral and we look forward to working with you in the care of your patient. Time with Patient: Greater than 30 <Faisal Granados - Last Filed: 07/21/17 08:12> Surgical - Exam Vital Signs Temp Pulse Resp BP Pulse Ox 98.2 F 78 18 174/72 97 07/15/17 21:25 07/15/17 21:25 07/15/17 21:25 07/15/17 21:25 07/15/17 21:25 Results - Labs 07/18/17 06:01 07/18/17 06:01 Assessment and Plan Plan: Patient examined, chart and films reviewed. Agree with evaluation and assessment as documented by [employer]EL[employer]KER. Plan discharge home, elective CABG next week. Will need dialysis day prior to surgery. Indications for surgery, risks vs benefits, common complications and usual post operative course discussed with patient. All questions answered.
[2017-07-17] MEDS: ATORVASTATIN 80 MG TAB PO SCH (19:56)
[2017-07-17 21:19] LABS: Glucose,Whole Blood 216 mg/dL (75-99)
[2017-07-18 00:51] LABS: Glucose,Whole Blood 135 mg/dL (75-99)
[2017-07-18] MEDS: INSULIN LISPRO (humaLOG) 300 UNIT/3 ML VIAL SQ SCH ×3 (00:54→12:25)
[2017-07-18] MEDS: NITROGLYCERIN OINT 1 INCH/GM PACKET TOPICAL SCH ×3 (00:54→12:25)
[2017-07-18 06:13] LABS: Glucose,Whole Blood 240 mg/dL (75-99)
[2017-07-18 06:34] LABS: Basophils % (A) 1 %; CHCM 33.2; Eosinophils # (A) 0.3 k/uL (0-0.7); Eosinophils % (A) 4 %; HCT 30.7 % (34.0-46.0); HDW 2.55; HGB 10.1 gm/dL (11.4-16.0); Luc % (Auto) 3; Lymphocytes # (A) 1.1 k/uL (1.0-4.8); Lymphocytes % (A) 17 %; MCHC 32.9 g/dL (31.0-37.0); Mean Platelet Volume 7.5; Monocytes # (A) 0.5 k/uL (0-1.0); Monocytes % (A) 8 %; Neutrophils # (A) 4.1 k/uL (1.3-7.7); Neutrophils % (A) 67 %; RBC 3.26 m/uL (3.80-5.40); RDW 13.9 % (11.5-15.5); WBC 6.2 k/uL (3.8-10.6); WBC (Perox) 6.39
[2017-07-18] MEDS: CARVEDILOL 12.5 MG TAB PO SCH (06:41)
[2017-07-18] MEDS: FERROUS SULFATE 325 MG TAB PO SCH (06:41)
[2017-07-18] MEDS: CALCIUM ACETATE 667 MG CAP PO SCH ×2 (06:41→12:26)
[2017-07-18 07:02] LABS: Calcium 9.1 mg/dL (8.4-10.2); Potassium 3.7 mmol/L (3.5-5.1)
[2017-07-18 07:51] VITALS: RESP 16; TEMP 97.6
[2017-07-18] MEDS: INSULIN GLARGINE 100 UNIT/ML 10 ML VIAL SQ SCH (07:52)
[2017-07-18] MEDS: ASPIRIN 81 MG CHEW PO SCH (07:54)
[2017-07-18] MEDS: ISOSORBIDE MONONITRATE ER 30 MG TAB.ER.24H PO SCH (07:55)
[2017-07-18] MEDS: FUROSEMIDE 40 MG TAB PO SCH (07:55)
[2017-07-18] MEDS: CITALOPRAM HYDROBROMIDE 20 MG TAB PO SCH (07:55)
[2017-07-18] MEDS: CYANOCOBALAMIN 500 MCG TAB PO SCH (07:55)
[2017-07-18] MEDS: FOLIC ACID-VIT B COMPLEX-VIT C 1 CAP PO SCH (07:55)
[2017-07-18] MEDS: CLOPIDOGREL 75 MG TAB PO SCH (07:55)
[2017-07-18] MEDS: CHOLECALCIFEROL 1,000 UNIT TAB PO SCH (07:55)
--- NOTE | 2017-07-18 08:14 | PN ---
Patient is seen for followup for end-stage renal disease. She had her cardiac catheterization yesterday and according to the patient she did not need any further cardiac catheterization; however, I do see a surgical consult from cardiothoracic surgery for possible coronary artery bypass surgery. Surgery is tentatively scheduled for 07/27/2017. Currently patient denies any complaints of chest pain, shortness of breath or cough. On examination, blood pressure is 130/62, heart rate 64 per minute. She is afebrile. EXAMINATION OF THE HEART: S1 and S2. EXAMINATION OF THE LUNGS: Decreased breath sounds at the bases. Abdomen is soft and nontender. Examination of the lower extremities shows no significant edema. GLOBAL TECHNICAL WRITER exam is grossly intact. Labs show sodium 136, potassium 3.7. Hemoglobin 10.1 grams/dL. ASSESSMENT: 1. End-stage renal disease on hemodialysis on a Monday, , Monday schedule via left arm AV fistula. We will arrange for hemodialysis today. 2. Non-ST elevated myocardial infarction. Status post cardiac catheterization with no intervention. Patient has been evaluated by cardiothoracic surgery and tentatively scheduled for surgery for 07/27. 3. Anemia of chronic disease. PLAN: Hemodialysis today after which patient could be discharged from nephrology standpoint. LEA
--- NOTE | 2017-07-18 08:44 | CC ---
CARDIAC CATH REPORT INDICATIONS: Non-ST segment elevation myocardial infarction. PROCEDURE NOTE: After obtaining informed consent, left heart catheterization and coronary angiogram were performed via the right femoral artery using standard Yessy catheters. The patient tolerated the procedure well without any obvious immediate complications. A femoral angiogram was performed and Angioseal deployed for hemostasis. FINDINGS: Hemodynamics: Left ventricular end diastolic pressure is 16-18 mm. There is no significant gradient across the aortic valve. LEFT VENTRICULOGRAM: Left ventriculogram is not performed. ANGIOGRAPHIC DATA: LEFT MAIN CORONARY ARTERY: The left main coronary artery appears heavily calcified. Divides into left anterior descending coronary artery and circumflex coronary artery. LEFT ANTERIOR DESCENDING CORONARY ARTERY: The LAD is heavily calcified and shows 80-90% stenosis just after the origin of diagonal branch and there is also segmental lesion in the mid to distal LAD. Diagonal branch shows 60-70% stenosis. CIRCUMFLEX CORONARY ARTERY: Circumflex coronary artery appears subtotally occluded right at its origin. RIGHT CORONARY ARTERY: Right coronary artery is a large dominant vessel, again heavily calcified vessel that shows focal area of 95% stenosis. All the vessels are heavily calcified. CONCLUSION: Three vessel coronary artery disease as described above. PLAN: Angiographic data was reviewed by Dr. Guzman, the on-call senior financial consultant who felt that she is a high risk candidate for angioplasty. I am going to consult Dr. Faisal Granados to evaluate the patient for bypass surgery. LEA
--- NOTE | 2017-07-18 10:21 | CDI ---
In responding to this query, please exercise your independent professional judgment. The [facility] Coding Staff and Clinical Documentation Specialists appreciate your assistance in clarifying documentation, maintaining compliance with coding guidelines, accurately documenting patients condition and capturing severity of illness. The fact that a question is asked does not imply that any particular answer is desired or expected. Communication forms are a method of clarifying documentation and are not made part of the Legal Health Record. Thank you in advance for your clarification. Last Revision, January 2017 Anabella Joy [address] [facility] [place] [address] Documentation Clarification Form Date: 07/18/2017 10:10:00 AM From: Kemi Escamilla RN, CCDS Admit Date: 07/15/2017 11:26:00 PM Patient Name: Margarita Bloom Visit Number: [id number] Dr. Jasbir Malone/ Naye Tamayo CNP CHF is documented in the Consults. History/Risk Factors: Acute NSTEMI, CRF stage 5, Anemia of Chronic disease, HTN Clinical Indicators: VS/Pulse OX: Temp 98.2, Hr 78 RR 18, B/P 174/72, spo2 97% ra BNP: 45033 06/03/17 Echocardiogram Results: EF 50-55% 07/15/17 Chest X Ray: mild cardiomegly and stable pulmonary interstitial prominence. Mild pulmonary venous congestion or chronic interstitial disease Treatment: Consults: Cardiology Lasix 40mg PO QD In your professional opinion, can you please clarify the acuity and type of CHF if known? Diastolic Heart Failure: Acute Chronic Acute on Chronic Unable to determine Other, please specify Please document in your progress notes and discharge summary in order to capture severity of illness and risk of mortality. Include clinical findings that support your diagnosis. FYI: Press F11 to launch patient chart. Place X here if this finding has no clinical significance, is not applicable or if you are not able to provide any additional documentation. LEA
--- NOTE | 2017-07-18 10:38 | P.DS ---
Providers Date of admission: 07/15/17 23:26 Expected date of discharge: 07/18/17 Attending physician: Jasbir Malone Consults: 07/15/17 23:26 Consult Physician Routine Consulting Provider: Stanley Teresa Consult Reason/Comments: CHF exacerbation Do you want consulting provider notified?: Yes 07/15/17 23:37 Consult Physician Routine Consulting Provider: Akash Carlos Consult Reason/Comments: renal failure patient Do you want consulting provider notified?: Yes 07/17/17 12:48 Consult Physician Urgent Consulting Provider: Faisal Granados Consult Reason/Comments: cad Do you want consulting provider notified?: Already Contacted 07/18/17 09:01 Consult Physician Routine Consulting Provider: Dwight Reddy Consult Reason/Comments: pre-op cardiac surgery Do you want consulting provider notified?: Yes Primary care physician: Jasbir Malone [employer] [facility] [employer] [facility] Course: This is a 72-year-old female who presented to the emergency room on 07/15/2017 for shortness of breath and chest heaviness. The patient has a history of diabetes mellitus, NSTEMI, coronary artery disease, chronic renal disease stage IV. She goes to dialysis 3 times a week (Monday, , Monday ) and has a left arm fistula. Her troponins were elevated upon admission up to 23 and her BNP was 14,600. A chest x-ray was performed which showed mild cardiomegaly and stable pulmonary disease. Patient was started on IV heparin and cardiology was consulted. A cardiac catheterization was performed on 07/09/2017 which revealed triple-vessel disease. No intervention was completed. Cardiothoracic surgery was consulted and discussed coronary artery bypass surgery with the patient who agreed to undergo surgery. It is tentatively scheduled for 07/27/2017. The patient is to stop her Plavix on , 07/20/2017. The patient is stable to be discharged home per Dr. Malone and will return next week for her CABG. DISCHARGE DIAGNOSIS: 1. Chronic kidney disease, stage IV. 2. Acute on chronic diastolic heart failure 3. Anemia of chronic disease, related to renal failure 4. Non-ST elevated myocardial infarction, acute 5. History of coronary artery disease with stent placement 6. History of diabetes mellitus, type II 7. Hyperglycemia, related to uncontrolled diabetes mellitus type 2. Hemoglobin A1c 9.2% on admission The above impression and plan of care have been discussed and directed by signing physician. Staci Tamayo, nurse practitioner, acting as scribe for signing physician. Patient Condition at Discharge: Fair Plan - Discharge Summary New Discharge Prescriptions: New Calcium Acetate [PhosLo] 1,334 mg PO AC-TID cap Carvedilol [Coreg*] 25 mg PO BID-W/MEALS tab Cholecalciferol [Vitamin D3] 1,000 unit PO DAILY tab Cyanocobalamin [Vitamin B-12] 1,000 mcg PO DAILY tab Ferrous Sulfate [Iron (65 MG Elemental)] 325 mg PO BID-W/MEALS tab Continue Folic Acid-Vit B Complex-Vit C [Nephrocaps] 1 cap PO DAILY Citalopram Hydrobromide [CeleXA] 20 mg PO DAILY Isosorbide Mononitrate ER [Imdur] 30 mg PO DAILY Nitroglycerin Sl Tabs [Nitrostat] 0.4 mg SUBLINGUAL Q5M PRN #25 tab PRN Reason: Chest Pain Atorvastatin [Lipitor] 80 mg PO HS #30 tab Clopidogrel [Plavix] 75 mg PO DAILY #30 tab Furosemide [Lasix] 40 mg PO DAILY Meclizine [Antivert] 25 mg PO BID PRN PRN Reason: Vertigo Insulin Glargine,Hum.rec.anlog [Lantus Solostar] 40 unit SQ DAILY Ondansetron Odt [Zofran ODT] 4 mg PO Q8HR PRN #10 tab PRN Reason: Nausea vomiting Discontinued Lisinopril [Zestril] 10 mg PO DAILY Discharge Medication List Folic Acid-Vit B Complex-Vit C [Nephrocaps] 1 cap PO DAILY 06/06/16 [History] Citalopram Hydrobromide [CeleXA] 20 mg PO DAILY 08/05/16 [History] Isosorbide Mononitrate ER [Imdur] 30 mg PO DAILY 11/19/16 [History] Atorvastatin [Lipitor] 80 mg PO HS #30 tab 11/22/16 [Rx] Clopidogrel [Plavix] 75 mg PO DAILY #30 tab 11/22/16 [Rx] Nitroglycerin Sl Tabs [Nitrostat] 0.4 mg SUBLINGUAL Q5M PRN #25 tab 11/22/16 [Rx ] Furosemide [Lasix] 40 mg PO DAILY 04/21/17 [History] Meclizine [Antivert] 25 mg PO BID PRN 04/21/17 [History] Insulin Glargine,Hum.rec.anlog [Lantus Solostar] 40 unit SQ DAILY 06/03/17 [ History] Ondansetron Odt [Zofran ODT] 4 mg PO Q8HR PRN #10 tab 06/24/17 [Rx] Calcium Acetate [PhosLo] 1,334 mg PO AC-TID cap 07/18/17 [Rx] Carvedilol [Coreg*] 25 mg PO BID-W/MEALS tab 07/18/17 [Rx] Cholecalciferol [Vitamin D3] 1,000 unit PO DAILY tab 07/18/17 [Rx] Cyanocobalamin [Vitamin B-12] 1,000 mcg PO DAILY tab 07/18/17 [Rx] Ferrous Sulfate [Iron (65 MG Elemental)] 325 mg PO BID-W/MEALS tab 07/18/17 [Rx ] Follow up Appointment(s)/Referral(s): Jasbir Malone DO [Primary Care Provider] - 1-2 days Jacy Brooks MD [STAFF PHYSICIAN] - 1 Week Patient Instructions/Handouts: Heart Failure (GEN) Activity/Diet/Wound Care/Special Instructions: Stop Plavix Jul 20 in anticipation of cardiac surgery Jul 27. Discharge Disposition: HOME SELF-CARE
--- NOTE | 2017-07-18 10:48 | PN ---
DATE OF SERVICE: 07/17/2017 Patient is a pleasant 72-year-old white female with a date of of 1945 who was admitted and seen by Dr. Hernández yesterday. She was complaining of chest heaviness in the lower part of her chest and she is currently booked for a heart catheterization today. HER PHYSICAL EXAM: She is alert and oriented x3. She is answering questions appropriately. HEAD AND NECK; Normocephalic and atraumatic. Neck is supple. No JVD. HEART: Regular rate and rhythm. LUNGS: Clear to auscultation. ABDOMEN: Soft, nontender. No rebound, rigidity or guarding. EXTREMITIES: No cyanosis, clubbing or jaundice. IMPRESSION: 1. Acute chest pain, ( ) angina with known coronary artery disease. 2. Chronic kidney disease, stage V, requiring renal dialysis. 3. Diabetes. 4. Tobacco history. 5. Urinary tract infection. 6. Anemia of chronic disease secondary to chronic kidney disease. 7. Acute non-ST segment elevated myocardial infarction. PLAN: Heart catheterization today. Further recommendations to follow, ( ) dialysis today. MTDD
--- NOTE | 2017-07-18 11:16 | P.CNPUL ---
History of Present Illness Consult date: 07/18/17 Chief complaint: Multivessel coronary artery disease, preop pulmonary evaluation History of present illness: 72-year-old female patient diagnosed having multivessel coronary artery disease who presented initially with non-ST segment elevation myocardial infarction and subsequent cardiac catheterization that was done on 07/17/2017 showed triple- vessel disease. The patient already met the cardiothoracic surgeon and the patient is supposed to undergo surgery next week after she was taken off Plavix for around a week. She is known to have end-stage renal disease and she is on hemodialysis through a AV fistula in the left upper extremity 3 times a week, she is known to have hypertension, diabetes mellitus, hyperlipidemia in addition. The patient also suffers from frequent bladder infections and peripheral neuropathy. She is currently free of any chest pain. No nausea or vomiting. She is a nonsmoker. She denies having any previous history of bronchial asthma or emphysema. No use of any oxygen at home. No use of any inhalers or breathing medications. No recent pneumonias. No history of DVT or pulmonary embolism. No history of any obstructive sleep apnea. She is able to climb a flight of stairs without any major difficulties. Her chest x-ray shows increased pulmonary vascular marking secondary to an underlying CHF. Had a bedside FEV1 is no other of 71% of predicted, 1.5 L. Review of Systems Constitutional: Reports fatigue Eyes: denies blurred vision, denies bulging eye, denies decreased vision Ears: deny: decreased hearing, ear discharge, earache Ears, nose, mouth and throat: Denies headache, Denies sore throat Breasts: absent: change in shape, gynecomastia, masses Cardiovascular: Reports chest pain, Reports decreased exercise tolerance Respiratory: Reports dyspnea Gastrointestinal: Denies abdominal pain, Denies diarrhea, Denies nausea, Denies vomiting Genitourinary: Denies dysuria, Denies hematuria Musculoskeletal: absent: ankle pain, ankle stiffness, ankle swelling Integumentary: Denies pruritus, Denies rash Neurological: Denies numbness, Denies weakness Psychiatric: Denies anxiety, Denies depression Past Medical History Past Medical History: Coronary Artery Disease (CAD), Chest Pain / Angina, Diabetes Mellitus, Dialysis (Hemodialysis Tuesdays, and Monday schedule), Hyperlipidemia, Hypertension, Myocardial Infarction ([place]), Renal Disease Additional Past Medical History / Comment(s): End-stage renal disease with dialysis 3 times a week-left arm AV fistula, IDDM, Non-STEMI 03/14/16, peripheral neuropathy bilateral feet cataracts bilaterally, frequent UTI'S, stress incontinence. Last Myocardial Infarction Date:: 07/15/2017 History of Any Multi-Drug Resistant Organisms: None Reported Past Surgical History: Appendectomy, Cholecystectomy, Heart Catheterization, Heart Catheterization With Stent, Tonsillectomy Additional Past Surgical History / Comment(s): 03/15/16 PTCA with stent to mid LAD,06-07-16 HEART CATH STENT TO PROX RCA. Restented mid LAD 11/20/16 A/V fistula with revision L upper arm, history of Lasix eye surgery and cataract removal. Past Anesthesia/Blood Transfusion Reactions: No Reported Reaction Date of Last Stent Placement:: 11/21/2016 Past Psychological History: Depression Additional Psychological History / Comment(s): Pt resides with her son. She does not use any assistive device and she can drive. Smoking Status: Former smoker (Quit over 50 years ago.) Past Alcohol Use History: None Reported Additional Past Alcohol Use History / Comment(s): Pt states she started smoking at age 21 (1965) and was a 5 cigarette a day smoker- she only smoked for about 6 months. Past Drug Use History: None Reported - Past Family History Father Family Medical History: Diabetes Mellitus Additional Family Medical History / Comment(s): Father of diabetic complications in his 40's Mother Family Medical History: Cancer, Myocardial Infarction ([place]) Additional Family Medical History / Comment(s): Cancer unknown type. Mother of a [place] in her early 50's Brother(s) Family Medical History: Cancer (Lung) Additional Family Medical History / Comment(s): Her brother from lung cancer and cirrhosis of the liver. Medications and Allergies Home Medications Medication Instructions Recorded Confirmed Type Folic Acid-Vit B Complex-Vit C 1 cap PO DAILY 06/06/16 07/16/17 History [Nephrocaps] Citalopram Hydrobromide [CeleXA] 20 mg PO DAILY 08/05/16 07/16/17 History Isosorbide Mononitrate ER [Imdur] 30 mg PO DAILY 11/19/16 07/16/17 History Furosemide [Lasix] 40 mg PO DAILY 04/21/17 07/16/17 History Meclizine [Antivert] 25 mg PO BID PRN 04/21/17 07/16/17 History Insulin Glargine,Hum.rec.anlog 40 unit SQ DAILY 06/03/17 07/16/17 History [Lantus Solostar] Allergies Allergy/AdvReac Type Severity Reaction Status Date / Time glyburide [From Diabeta] Allergy Rash/Hives Verified 07/16/17 09:13 Physical Exam Vitals: Vital Signs Temp Pulse Resp BP BP Pulse Ox 07/18/17 07:50 97.6 F 70 16 124/54 99 07/18/17 04:00 97.3 F L 64 17 130/62 96 07/18/17 00:30 97.1 F L 69 18 133/64 99 07/18/17 00:00 97.1 F L 69 18 133/64 07/17/17 20:00 97.4 F L 73 18 147/63 07/17/17 16:30 60 16 135/57 07/17/17 15:30 97.3 F L 60 16 134/56 07/17/17 14:30 58 L 12 120/52 07/17/17 14:00 56 L 126/55 07/17/17 13:30 56 L 12 119/49 07/17/17 13:15 57 L 120/54 07/17/17 13:00 58 L 106/57 07/17/17 12:45 57 L 12 116/55 Intake and Output 07/17/17 07/18/17 07/18/17 22:59 06:59 14:59 Intake Total 280 420 180 Balance 280 420 180 Intake: Oral 280 420 180 Other: Voiding Method Toilet Toilet # Voids 1 Weight 83.4 kg The patient appeared well nourished and normally developed. Vital signs as documented. Head exam is unremarkable. No scleral icterus or corneal arcus noted. Neck is without jugular venous distension, thyromegaly, or carotid bruits. Carotid upstrokes are brisk bilaterally. Lungs are clear to auscultation and percussion. Cardiac exam reveals the PMI to be normally sized and situated. Rhythm is regular. First and second heart sounds normal. No murmurs, rubs or gallops. Abdominal exam reveals normal bowel sounds, no masses , no organomegaly and no aortic enlargement. Extremities are nonedematous and both femoral and pedal pulses are normal. The patient has a functional AV fistula in the left upper extremity. Results - Laboratory Findings CBC and BMP: 07/18/17 06:01 07/18/17 06:01 PT/INR, D-dimer PT 10.6 sec (9.0-12.0) 07/17/17 13:48 INR 1.1 (<1.2) 07/17/17 13:48 D-Dimer 0.72 mg/L FEU (<0.60) H 07/15/17 22:05 Abnormal lab findings: Abnormal Labs 07/15/17 07/15/17 07/15/17 22:05 22:05 22:05 RBC 3.30 L Hgb 10.5 L Hct 32.2 L APTT D-Dimer 0.72 H Sodium 135 L Chloride 93 L Carbon Dioxide BUN 43 H Creatinine 5.70 H* Glucose 696 H* POC Glucose (mg/dL) Hemoglobin A1c Alkaline Phosphatase 127 H CK-MB (CK-2) Troponin I Total Protein Albumin Urine Appearance Urine Protein Urine Glucose (UA) Urine Blood Ur Leukocyte Esterase Urine RBC Urine WBC Urine WBC Clumps Ur Squamous Epith Cells Amorphous Sediment Urine Bacteria Urine Mucus 07/15/17 07/15/17 07/16/17 22:05 22:45 00:06 RBC Hgb Hct APTT D-Dimer Sodium Chloride Carbon Dioxide BUN Creatinine Glucose POC Glucose (mg/dL) >600 H Hemoglobin A1c Alkaline Phosphatase CK-MB (CK-2) Troponin I 0.072 H* Total Protein Albumin Urine Appearance Cloudy H Urine Protein 2+ H Urine Glucose (UA) 4+ H Urine Blood Small H Ur Leukocyte Esterase Large H Urine RBC 8 H Urine WBC 119 H Urine WBC Clumps Rare H Ur Squamous Epith Cells 12 H Amorphous Sediment Rare H Urine Bacteria Few H Urine Mucus Rare H 07/16/17 07/16/17 07/16/17 01:15 02:02 02:26 RBC Hgb Hct APTT D-Dimer Sodium Chloride Carbon Dioxide BUN Creatinine Glucose POC Glucose (mg/dL) 536 H 453 H 380 H Hemoglobin A1c Alkaline Phosphatase CK-MB (CK-2) Troponin I Total Protein Albumin Urine Appearance Urine Protein Urine Glucose (UA) Urine Blood Ur Leukocyte Esterase Urine RBC Urine WBC Urine WBC Clumps Ur Squamous Epith Cells Amorphous Sediment Urine Bacteria Urine Mucus 07/16/17 07/16/17 07/16/17 02:59 04:11 04:15 RBC Hgb Hct APTT D-Dimer Sodium Chloride Carbon Dioxide BUN Creatinine Glucose POC Glucose (mg/dL) 285 H 104 H Hemoglobin A1c Alkaline Phosphatase CK-MB (CK-2) 10.8 H* Troponin I 8.140 H* Total Protein Albumin Urine Appearance Urine Protein Urine Glucose (UA) Urine Blood Ur Leukocyte Esterase Urine RBC Urine WBC Urine WBC Clumps Ur Squamous Epith Cells Amorphous Sediment Urine Bacteria Urine Mucus 07/16/17 07/16/17 07/16/17 05:05 06:57 08:32 RBC 3.27 L Hgb 10.2 L Hct 31.4 L APTT D-Dimer Sodium Chloride Carbon Dioxide BUN Creatinine Glucose POC Glucose (mg/dL) 58 L 107 H Hemoglobin A1c Alkaline Phosphatase CK-MB (CK-2) Troponin I Total Protein Albumin Urine Appearance Urine Protein Urine Glucose (UA) Urine Blood Ur Leukocyte Esterase Urine RBC Urine WBC Urine WBC Clumps Ur Squamous Epith Cells Amorphous Sediment Urine Bacteria Urine Mucus 07/16/17 07/16/17 07/16/17 09:11 10:21 11:25 RBC Hgb Hct APTT D-Dimer Sodium Chloride Carbon Dioxide BUN Creatinine Glucose POC Glucose (mg/dL) 143 H 164 H Hemoglobin A1c Alkaline Phosphatase CK-MB (CK-2) 15.5 H* Troponin I 23.000 H* Total Protein Albumin Urine Appearance Urine Protein Urine Glucose (UA) Urine Blood Ur Leukocyte Esterase Urine RBC Urine WBC Urine WBC Clumps Ur Squamous Epith Cells Amorphous Sediment Urine Bacteria Urine Mucus 07/16/17 07/16/17 07/16/17 11:25 12:36 13:52 RBC Hgb Hct APTT 66.1 H D-Dimer Sodium Chloride Carbon Dioxide BUN Creatinine Glucose POC Glucose (mg/dL) 198 H Hemoglobin A1c 9.2 H Alkaline Phosphatase CK-MB (CK-2) Troponin I Total Protein Albumin Urine Appearance Urine Protein Urine Glucose (UA) Urine Blood Ur Leukocyte Esterase Urine RBC Urine WBC Urine WBC Clumps Ur Squamous Epith Cells Amorphous Sediment Urine Bacteria Urine Mucus 07/16/17 07/16/17 07/17/17 18:01 20:33 05:33 RBC Hgb Hct APTT D-Dimer Sodium Chloride Carbon Dioxide BUN Creatinine Glucose POC Glucose (mg/dL) 285 H 230 H 165 H Hemoglobin A1c Alkaline Phosphatase CK-MB (CK-2) Troponin I Total Protein Albumin Urine Appearance Urine Protein Urine Glucose (UA) Urine Blood Ur Leukocyte Esterase Urine RBC Urine WBC Urine WBC Clumps Ur Squamous Epith Cells Amorphous Sediment Urine Bacteria Urine Mucus 07/17/17 07/17/17 07/17/17 06:26 06:26 12:48 RBC 3.09 L Hgb 9.7 L Hct 29.7 L APTT D-Dimer Sodium 136 L Chloride Carbon Dioxide 18 L BUN 56 H Creatinine 7.01 H* Glucose 177 H POC Glucose (mg/dL) 258 H Hemoglobin A1c Alkaline Phosphatase CK-MB (CK-2) Troponin I Total Protein Albumin Urine Appearance Urine Protein Urine Glucose (UA) Urine Blood Ur Leukocyte Esterase Urine RBC Urine WBC Urine WBC Clumps Ur Squamous Epith Cells Amorphous Sediment Urine Bacteria Urine Mucus 07/17/17 07/17/17 07/17/17 13:48 13:48 16:50 RBC Hgb Hct APTT D-Dimer Sodium 134 L Chloride Carbon Dioxide 20 L BUN 57 H Creatinine 7.40 H* Glucose 264 H POC Glucose (mg/dL) 211 H Hemoglobin A1c Alkaline Phosphatase CK-MB (CK-2) Troponin I 5.330 H* Total Protein 5.6 L Albumin 3.0 L Urine Appearance Urine Protein Urine Glucose (UA) Urine Blood Ur Leukocyte Esterase Urine RBC Urine WBC Urine WBC Clumps Ur Squamous Epith Cells Amorphous Sediment Urine Bacteria Urine Mucus 07/17/17 07/18/17 07/18/17 21:16 00:38 06:01 RBC 3.26 L Hgb 10.1 L Hct 30.7 L APTT D-Dimer Sodium Chloride Carbon Dioxide BUN Creatinine Glucose POC Glucose (mg/dL) 216 H 135 H Hemoglobin A1c Alkaline Phosphatase CK-MB (CK-2) Troponin I Total Protein Albumin Urine Appearance Urine Protein Urine Glucose (UA) Urine Blood Ur Leukocyte Esterase Urine RBC Urine WBC Urine WBC Clumps Ur Squamous Epith Cells Amorphous Sediment Urine Bacteria Urine Mucus 07/18/17 07/18/17 06:01 06:11 RBC Hgb Hct APTT D-Dimer Sodium 136 L Chloride Carbon Dioxide BUN 25 H Creatinine 4.40 H Glucose 265 H POC Glucose (mg/dL) 240 H Hemoglobin A1c Alkaline Phosphatase CK-MB (CK-2) Troponin I Total Protein Albumin Urine Appearance Urine Protein Urine Glucose (UA) Urine Blood Ur Leukocyte Esterase Urine RBC Urine WBC Urine WBC Clumps Ur Squamous Epith Cells Amorphous Sediment Urine Bacteria Urine Mucus - Diagnostic Findings Chest x-ray: image reviewed Assessment and Plan Plan: Assessment 1 multivessel coronary artery disease, status post acute non-ST segment elevation myocardial infarction, awaiting coronary artery bypass surgery. The patient is currently off Plavix and surgery will be done next week after the Plavix effect has completely resolved. 2 end-stage renal disease on hemodialysis 3 times a week for an AV fistula in the left upper extremity 3 diabetes mellitus, insulin-dependent 4 hypertension 5 hyperlipidemia 6 preserved LV function with an ejection fraction of 50-55% with mild degree of pulmonary hypertension and no significant valvular disease. 7 frequent UTIs, currently inactive in stable 8 peripheral neuropathy 9 chronic anemia Plan Overall pulmonary status is stable. The patient was provided incentive spirometer. She will continue with the daily pulmonary toileting and deep breathing. Chest x-ray was reviewed. FEV1 is preserved with an FEV1 of 71% of predicted. We'll proceed with surgery next week and will manage this patient's postop pulmonary care, ventilator care, or any other pulmonary knees that may arise. No major pulmonary risk for thoracotomy and bypass surgery.
[2017-07-18 11:46] LABS: Glucose,Whole Blood 261 mg/dL (75-99)
--- NOTE | 2017-07-18 11:46 | P.PN ---
<Fallon Carreon - Last Filed: 07/18/17 11:35> Subjective Principal diagnosis: Non-ST elevation myocardial infarction, history of coronary artery disease with the previously placed stents, history of myocardial infarction. Diabetes mellitus type 2, uncontrolled. Hypertension. Hyperlipidemia. End-stage renal disease with hemodialysis on Tuesdays, and Saturdays. Obesity. Anemia of chronic chronic disease. Peripheral neuropathy. Frequent bladder infections. Depression. Family history of early coronary artery disease with her mother dying of a myocardial infarction in her early 50s. Patient is currently sitting up in bed in no acute distress. Denies chest pain , shortness of breath. Waiting for dialysis and then anticipate being discharged home this afternoon. Objective - Vital Signs Vital signs: Vital Signs Temp 97.6 F 07/18/17 07:50 Pulse 60 07/18/17 11:21 Resp 16 07/18/17 11:22 BP 126/56 07/18/17 11:21 Pulse Ox 98 07/18/17 11:21 Intake & Output 07/17/17 07/18/17 07/18/17 18:59 06:59 18:59 Intake Total 280 520 180 Balance 280 520 180 Weight 85.2 kg 83.4 kg Intake: IV 100 Oral 180 520 180 Other: Voiding Method Toilet Toilet # Voids 1 1 # Bowel Movements 1 - Constitutional General appearance: Present: cooperative, no acute distress, obese - Respiratory Details: Lungs sounds diminished bilaterally. Respirations even, nonlabored. Currently on room air with oxygen saturation 98%. - Cardiovascular Details: S1, S2 present. Regular rate and rhythm, normal sinus rhythm on telemetry. Palpable pulses bilaterally. No edema present. Left upper extremity AV fistula with positive bruit, thrill. - Gastrointestinal Gastrointestinal Comment(s): Abdomen soft, nontender, nondistended. Active bowel sounds 4 quadrants. Tolerating diet. - Genitourinary Genitourinary Comment(s): Continues to void clear, yellow urine. - Musculoskeletal Musculoskeletal: Present: gait normal, strength equal bilaterally - Psychiatric Psychiatric: Present: A&O x's 3, appropriate affect, intact judgment & insight - Allied health notes Allied health notes reviewed: nursing - Labs CBC & Chem 7: 07/18/17 06:01 07/18/17 06:01 Labs: Abnormal Lab Results - Last 24 Hours (Table) 0807/17/17 07/17/17 Range/Units 12:48 13:48 13:48 RBC (3.80-5.40) m/uL Hgb (11.4-16.0) gm/dL Hct (34.0-46.0) % Sodium 134 L (137-145) mmol/L Carbon Dioxide 20 L (22-30) mmol/L BUN 57 H (7-17) mg/dL Creatinine 7.40 H* (0.52-1.04) mg/dL Glucose 264 H (74-99) mg/dL POC Glucose (mg/dL) 258 H (75-99) mg/dL Troponin I 5.330 H* (0.000-0.034) ng/mL Total Protein 5.6 L (6.3-8.2) g/dL Albumin 3.0 L (3.5-5.0) g/dL 07/17/17 07/17/17 07/18/17 Range/Units 16:50 21:16 00:38 RBC (3.80-5.40) m/uL Hgb (11.4-16.0) gm/dL Hct (34.0-46.0) % Sodium (137-145) mmol/L Carbon Dioxide (22-30) mmol/L BUN (7-17) mg/dL Creatinine (0.52-1.04) mg/dL Glucose (74-99) mg/dL POC Glucose (mg/dL) 211 H 216 H 135 H (75-99) mg/dL Troponin I (0.000-0.034) ng/mL Total Protein (6.3-8.2) g/dL Albumin (3.5-5.0) g/dL 07/18/17 07/18/17 07/18/17 Range/Units 06:01 06:01 06:11 RBC 3.26 L (3.80-5.40) m/uL Hgb 10.1 L (11.4-16.0) gm/dL Hct 30.7 L (34.0-46.0) % Sodium 136 L (137-145) mmol/L Carbon Dioxide (22-30) mmol/L BUN 25 H (7-17) mg/dL Creatinine 4.40 H (0.52-1.04) mg/dL Glucose 265 H (74-99) mg/dL POC Glucose (mg/dL) 240 H (75-99) mg/dL Troponin I (0.000-0.034) ng/mL Total Protein (6.3-8.2) g/dL Albumin (3.5-5.0) g/dL Microbiology - Last 24 Hours (Table) 07/16/17 15:00 Urine Culture - Final Urine,Voided 07/17/17 15:00 Nasal Screen MRSA/MSSA (GONZÁLEZ) - Preliminary Nasal Swab Assessment and Plan (1) Acute on chronic renal failure Status: Acute (2) Anemia of chronic disease Status: Acute (3) Coronary artery disease Status: Acute (4) ESRD (end stage renal disease) Status: Acute (5) HTN (hypertension) Status: Acute (6) Hyperlipemia Status: Acute (7) NSTEMI (non-ST elevated myocardial infarction) Status: Acute (8) Presence of stent in LAD coronary artery Status: Acute (9) S/P right coronary artery (RCA) stent placement Status: Acute Plan: 1. Continue aspirin, statin, beta tone, Imdur, Lasix. 2. Will hold Plavix starting this July 20 in anticipation of coronary artery bypass graft surgery next week on July 27. 3. Preoperative teaching reinforced. 4. Patient will need to have dialysis on Monday, the day before surgery. This was discussed with the patient and placed on her discharge instructions. 5. Encourage incentive spirometer use. 6. Patient is cleared to be discharged home when okay with primary and cardiology. Time with Patient: Greater than 30 <Trey Arcos - Last Filed: 07/19/17 10:07> Objective - Vital Signs Vital signs: Vital Signs Temp 97.6 F 07/18/17 07:50 Pulse 64 07/18/17 16:22 Resp 16 07/18/17 11:22 BP 142/63 07/18/17 16:22 Pulse Ox 98 07/18/17 11:21 Intake & Output 07/18/17 07/19/17 07/19/17 18:59 06:59 18:59 Intake Total 420 Balance 420 Intake: Oral 420 Other: Voiding Method Toilet - Labs CBC & Chem 7: 07/18/17 06:01 07/18/17 06:01 Labs: Abnormal Lab Results - Last 24 Hours (Table) 07/18/17 Range/Units 11:38 POC Glucose (mg/dL) 261 H (75-99) mg/dL Microbiology - Last 24 Hours (Table) 07/17/17 15:00 Nasal Screen MRSA/MSSA (GONZÁLEZ) - Final Nasal Swab Assessment and Plan Plan: The patient's Plavix is currently on hold in anticipation of coronary artery bypass surgery next week by Dr. Granados.
--- NOTE | 2017-07-18 12:09 | ECHOF ---
Referral Reason:assess lv function. MEASUREMENTS -------- HEIGHT: 157.5 cm WEIGHT: 83.0 kg BP: 130/62 IVSd: 1.9 cm (0.6 - 1.1) LVIDd: 3.8 cm (3.9 - 5.3) LVPWd: 1.8 cm (0.6 - 1.1) EDV(Teich): 62 ml IVSs: 2.5 cm LVIDs: 2.3 cm LVPWs: 2.1 cm %IVS Thck: 28 % ESV(Teich): 17 ml EF(Teich): 72 % %FS: 41 % SV(Teich): 45 ml LVOT Diam: 1.5 cm Ao Diam: 3.0 cm (2.0 - 3.7) AV Cusp: 1.9 cm (1.5 - 2.6) LA Diam: 3.1 cm (2.7 - 3.8) MV EXCURSION: 15.618 mm (> 18.000) MV EF SLOPE: 30 mm/s (70 - 150) EPSS: 1.1 cm MV E Harsha: 1.37 m/s MV DecT: 222 ms MV Dec Graves: 6.2 m/s MV A Harsha: 1.13 m/s MV E/A Ratio: 1.22 MV PHT: 65 ms E/E': 26.74 E': 0.05 m/s MVA (VTI): 0.7 cm MV PHT: 65 ms MVA By PHT: 3.4 cm MV Vmax: 1.60 m/s MV Vmean: 0.74 m/s MV maxP.21 mmHg MV meanP.02 mmHg MV VTI: 55.3 cm MR Vmax: 2.00 m/s MR maxP.00 mmHg LVOT Vmax: 0.79 m/s LVOT maxP.47 mmHg LVOT Vmax: 0.85 m/s LVOT Vmean: 0.66 m/s LVOT maxP.90 mmHg LVOT meanP.88 mmHg LVOT Env.Ti: 341 ms LVOT VTI: 22.4 cm AV Vmax: 2.05 m/s AV maxP.77 mmHg MAHENDRA Vmax, Pt: 0.7 cm MAHENDRA Vmax: 0.7 cm AV Vmax: 2.31 m/s AV Vmean: 1.66 m/s AV maxP.31 mmHg AV meanP.26 mmHg AV Env.Ti: 369 ms AV VTI: 61.4 cm MAHENDRA Vmax: 0.7 cm MAHENDRA (VTI): 0.6 cm MAHENDRA Vmax, Pt: 0.6 cm TR Vmax: 2.53 m/s TR maxP.57 mmHg RAP: 5.00 mmHg RVSP: 30.57 mmHg FINDINGS -------- Sinus rhythm. This was a technically good study. There is severe concentric left ventricular hypertrophy. Overall left ventricular systolic function is normal with, an EF between 55 - 60 %. The right ventricle is normal in size and function. The left atrium is normal in size. The right atrium is normal in size. Aortic valve is trileaflet and is moderately thickened. There is mild aortic stenosis present. Peak/mean gradient across the Aortic Valve is 21.31mmHg / 12.26mmHg. The mitral valve leaflets are mildly thickened. Mild mitral annular calcification present. Mild mitral regurgitation is present. Mild tricuspid regurgitation present. The right ventricular systolic pressure, as measured by Doppler, is 30.57mmHg. Pulmonic valve appears structurally normal. The aortic root size is normal. The pericardium is normal. CONCLUSIONS -------- 1. Sinus rhythm. 2. Peak/mean gradient across the Aortic Valve is 21.31mmHg / 12.26mmHg. 3. The mitral valve leaflets are mildly thickened. 4. Mild mitral annular calcification present. 5. Mild mitral regurgitation is present. 6. Mild tricuspid regurgitation present. 7. The right ventricular systolic pressure, as measured by Doppler, is 30.57mmHg. 8. Pulmonic valve appears structurally normal. 9. The aortic root size is normal. 10. The pericardium is normal. 11. This was a technically good study. 12. There is severe concentric left ventricular hypertrophy. 13. Overall left ventricular systolic function is normal with, an EF between 55 - 60 %. 14. The right ventricle is normal in size and function. 15. The left atrium is normal in size. 16. The right atrium is normal in size. 17. Aortic valve is trileaflet and is moderately thickened. 18. There is mild aortic stenosis present. TRUCK OPERATOR: Fallon Arauz RDCS
--- NOTE | 2017-07-18 14:45 | P.PN ---
Subjective Principal diagnosis: Non-Q-wave ME This is a 72-year-old female with history of end-stage renal disease on hemodialysis, diabetes, hypertension, anemia, COPD, known history of coronary artery disease, who presented to the hospital with a non-Q-wave myocardial infarction. She was taken to the cardiac catheterization lab yesterday by Dr. Gross where the patient was found to have three-vessel coronary artery disease. The angiographic data was reviewed by Dr. cynthia wells who felt that the patient would be high risk for angioplasty therefore cardiothoracic surgery was consulted. They also have seen the patient in consultation and she is scheduled to undergo coronary artery bypass grafting surgery next . At the time of my examination today she denies any chest pain or difficulty in breathing. Currently undergoing dialysis. Objective - Vital Signs Vital signs: Vital Signs Temp 97.6 F 07/18/17 07:50 Pulse 60 07/18/17 11:21 Resp 16 07/18/17 11:22 BP 126/56 07/18/17 11:21 Pulse Ox 98 07/18/17 11:21 Intake & Output 07/17/17 07/18/17 07/18/17 18:59 06:59 18:59 Intake Total 280 520 420 Balance 280 520 420 Weight 85.2 kg 83.4 kg Intake: IV 100 Oral 180 520 420 Other: Voiding Method Toilet Toilet # Voids 1 1 # Bowel Movements 1 - Exam PHYSICAL EXAMINATION: HEENT: Head is atraumatic, normocephalic. Pupils equal, round. Neck is supple. There is no elevated jugular venous pressure. HEART EXAMINATION: Heart S1, S2 normal. No murmur or gallop heard. CHEST EXAMINATION: Lungs are clear to auscultation and precussion. No chest wall tenderness is noted on palpation or with deep breathing. ABDOMEN: Soft, nontender. Bowel sounds are heard. No organomegaly noted. Right groin soft, no evidence of any hematoma. EXTREMITIES: 2+ peripheral pulses with no evidence of peripheral edema and no calf tenderness noted. NEUROLOGIC patient is awake, alert and oriented -3. . - Labs CBC & Chem 7: 07/18/17 06:01 07/18/17 06:01 Labs: Abnormal Lab Results - Last 24 Hours (Table) 07/17/17 07/17/17 07/17/17 Range/Units 13:48 13:48 16:50 RBC (3.80-5.40) m/uL Hgb (11.4-16.0) gm/dL Hct (34.0-46.0) % Sodium 134 L (137-145) mmol/L Carbon Dioxide 20 L (22-30) mmol/L BUN 57 H (7-17) mg/dL Creatinine 7.40 H* (0.52-1.04) mg/dL Glucose 264 H (74-99) mg/dL POC Glucose (mg/dL) 211 H (75-99) mg/dL Troponin I 5.330 H* (0.000-0.034) ng/mL Total Protein 5.6 L (6.3-8.2) g/dL Albumin 3.0 L (3.5-5.0) g/dL 07/17/17 07/18/17 07/18/17 Range/Units 21:16 00:38 06:01 RBC 3.26 L (3.80-5.40) m/uL Hgb 10.1 L (11.4-16.0) gm/dL Hct 30.7 L (34.0-46.0) % Sodium (137-145) mmol/L Carbon Dioxide (22-30) mmol/L BUN (7-17) mg/dL Creatinine (0.52-1.04) mg/dL Glucose (74-99) mg/dL POC Glucose (mg/dL) 216 H 135 H (75-99) mg/dL Troponin I (0.000-0.034) ng/mL Total Protein (6.3-8.2) g/dL Albumin (3.5-5.0) g/dL 07/18/17 07/18/17 07/18/17 Range/Units 06:01 06:11 11:38 RBC (3.80-5.40) m/uL Hgb (11.4-16.0) gm/dL Hct (34.0-46.0) % Sodium 136 L (137-145) mmol/L Carbon Dioxide (22-30) mmol/L BUN 25 H (7-17) mg/dL Creatinine 4.40 H (0.52-1.04) mg/dL Glucose 265 H (74-99) mg/dL POC Glucose (mg/dL) 240 H 261 H (75-99) mg/dL Troponin I (0.000-0.034) ng/mL Total Protein (6.3-8.2) g/dL Albumin (3.5-5.0) g/dL Microbiology - Last 24 Hours (Table) 07/16/17 15:00 Urine Culture - Final Urine,Voided 07/17/17 15:00 Nasal Screen MRSA/MSSA (GONZÁLEZ) - Preliminary Nasal Swab Assessment and Plan (1) Non-Q wave infarction Status: Acute (2) S/P cardiac cath Status: Acute (3) Triple vessel coronary artery disease Status: Acute (4) Anemia of chronic disease Status: Acute (5) Diabetes Status: Acute (6) ESRD (end stage renal disease) Status: Acute (7) HTN (hypertension) Status: Acute (8) Hyperlipemia Status: Acute (9) Presence of stent in LAD coronary artery Status: Acute (10) S/P right coronary artery (RCA) stent placement Status: Acute Plan: From cardiology's perspective, patient may be able to be discharged home today. We'll make her a follow-up appointment to see Dr. Caruso in the office early next week. She will then return to the hospital for coronary artery bypass grafting surgery on . DNP note has been reviewed, I agree with a documented findings and plan of care. Patient was seen and examined.
[2017-07-18 16:23] VITALS: BP 142/63; PULSE 64
--- NOTE | 2017-07-19 11:42 | P.VSCSTY ---
Greater Saphenous Vein Mapping This is bilateral lower extremity greater saphenous vein mapping. Date of service 07/17/2017 Vein quality and ultrasound appearance normal. Vein size groin right 7.1 x 7.9 groin left 7.2 x 6.8 High thigh right 5.0 x 5.9 high thigh left 5.2 x 5.4 Mid thigh right 4.6 x 4.9 mid thigh left 5.4 x 5.0 Above-knee right 4.5 x 4.1 above- knee left 5.1 x 5.4 Below knee right 3.2 x 3.2 below-knee left 3.7 x 3.9 Mid calf right 2.7 x 2.9 mid calf left 2.2 x 2.4 Ankle right 2.3 x 2.6 ankle left 2.2 x 2.7 Impression usable bilateral greater saphenous vein.
--- NOTE | 2017-07-19 11:44 | P.ARTDOP ---
Arterial Doppler LOWER EXTREMITY ARTERIAL DOPPLER: DATE OF SERVICE: 07/18/2017 Reason for study: Pre-CABG. Doppler waveforms: Multiphasic but blunted bilaterally throughout. Pulse volume recording: []. Pressure gradients: None recorded. Ankle-brachial indices: Greater than 1 bilaterally. Toe pressures: [] on the right, [] on the left Impression: Normal study.
== END 2017-07-18 17:01 | disposition home or self-care (01) | DRG 280 ==
LOC: EC 21:21 → 6ICU 23:26 → 6SEL 07-16 18:29
PROVIDERS: ADMIT Family Medicine; ATTEND Family Medicine
PROC: 4A023N7 Measurement of Cardiac Sampling and Pressure, Left Heart, Percutaneous Approach (ICD-10-PCS; principal; 2017-07-18)
PROC: B211YZZ Fluoroscopy of Multiple Coronary Arteries using Other Contrast (ICD-10-PCS; 2017-07-18)
PROC: B54DZZZ Ultrasonography of Bilateral Lower Extremity Veins (ICD-10-PCS; 2017-07-18)
DX: I21.4 Non-ST elevation (NSTEMI) myocardial infarction (principal); I50.33 Acute on chronic diastolic (congestive) heart failure; N17.9 Acute kidney failure, unspecified; E11.22 Type 2 diabetes mellitus with diabetic chronic kidney disease; E11.42 Type 2 diabetes mellitus with diabetic polyneuropathy; I27.2 Other secondary pulmonary hypertension; N18.6 End stage renal disease; I13.2 Hypertensive heart and chronic kidney disease with heart failure and with stage 5 chronic kidney disease, or end stage renal disease; N39.0 Urinary tract infection, site not specified; D63.1 Anemia in chronic kidney disease; E11.65 Type 2 diabetes mellitus with hyperglycemia; E66.9 Obesity, unspecified; E78.5 Hyperlipidemia, unspecified; F32.9 Major depressive disorder, single episode, unspecified; I25.119 Atherosclerotic heart disease of native coronary artery with unspecified angina pectoris; I25.2 Old myocardial infarction; J44.9 Chronic obstructive pulmonary disease, unspecified; N39.3 Stress incontinence (female) (male); R09.89 Other specified symptoms and signs involving the circulatory and respiratory systems; H26.9 Unspecified cataract; E83.9 Disorder of mineral metabolism, unspecified; Z79.02 Long term (current) use of antithrombotics/antiplatelets; Z79.4 Long term (current) use of insulin; Z79.82 Long term (current) use of aspirin; Z79.899 Other long term (current) drug therapy; Z87.440 Personal history of urinary (tract) infections; Z87.891 Personal history of nicotine dependence; Z99.2 Dependence on renal dialysis; Z95.5 Presence of coronary angioplasty implant and graft; Z82.49 Family history of ischemic heart disease and other diseases of the circulatory system
CPT/HCPCS: 36415; 71020; 80048; 80053; 80074; 81001; 82553; 83036; 83735; 83880; 84443; 84484; 85025; 85379; 85610; 85730; 87070; 87086; 90935; 93005; 93306; 93458; 93880; 93922; 93970; 99285

== ENCOUNTER 2017-07-27 05:46 | Inpatient (IN) | payer MEDICARE, OTHER ==
[~2017-07-27 05:46] MED LIST: ALBUMIN HUMAN 25% 50 ML IV ONE; ALBUMIN HUMAN 5% 500 ML IVPB ONE; ASPIRIN 325 MG TAB PO ONE; ATORVASTATIN 10 MG TAB PO ONE; CALCIUM CHLORIDE 100 MG/ML 10 ML SYRINGE IV ONE; CHLORHEXIDINE GLUCONATE 15 ML CUP MUCOUS MEM ONE; CLEVIDIPINE BUTYRATE 25 MG in EMPTY BAG 1 BAG IV ONE; HEPARIN SODIUM 1,000 UN/ML (10ML VL) IV ONE; HEPARIN SODIUM,PORCINE 5,000 UNIT in SODIUM CHLORIDE 0.9% 500 ML IV ONE; INSULIN REGULAR 100 UNIT in SODIUM CHLORIDE 0.9% 100 ML IV ONE; LACTATED RINGERS 1,000 ML IV ONE; MAGNESIUM SULFATE MG 500 MG/ML VIAL IV ONE; METOPROLOL TARTRATE 12.5 MG TAB PO ONE; MUPIROCIN 2% OINT 22 GM TUBE NASAL ONE; NITROGLYCERIN SL TABS 0.4 MG TAB SUBLINGUAL ONE; NITROGLYCERIN-D5W PMX 25 MG/250 ML BTL IV ONE; NITROGLYCERIN-D5W PMX 50 MG in DEXTROSE/WATER 1 250ML.BAG IV ONE; NOREPINEPHRIN 4 MG-0.9% NS PMX 4 MG/250 ML ML IV ONE; PAPAVERINE 360 MG in SODIUM CHLORIDE 0.9% 90 ML IV ONE; PHENYLEPHRINE 40 MG in SODIUM CHLORIDE 0.9% 250 ML IV ONE; PHENYLEPHRINE-0.9% NACL SYG 1 MG/10 ML SYRINGE IV ONE; PROPOFOL 1,000 MG/100 ML VIAL IV ONE; PROTAMINE SULFATE 10 MG/ML 25 ML VIAL IV ONE; PROTAMINE SULFATE 250 MG in EMPTY BAG 1 BAG IV ONE; SODIUM BICARB 8.4% 50 ML SYR (1 MEQ/ML) IV ONE; SODIUM CHLORIDE 0.9% 1,000 ML IV ONE; ceFAZolin 1,000 MG in SODIUM CHLORIDE 0.9% IRRIGATIO 1,000 ML IRRIGATION ONE; ceFAZolin 2,000 MG in SODIUM CHLORIDE 0.9% 30 ML IVPB ONE
[2017-07-27 06:28] LABS: Glucose,Whole Blood 183 mg/dL (75-99)
[2017-07-27 08:06] LABS: Basophils % (A) 1 %; CH 30.6; CHCM 33.1; Eosinophils # (A) 0.3 k/uL (0-0.7); Eosinophils % (A) 6 %; HCT 31.9 % (34.0-46.0); HDW 2.93; HGB 10.7 gm/dL (11.4-16.0); Luc # (Auto) 0.24; Luc % (Auto) 4; Lymphocytes # (A) 1.3 k/uL (1.0-4.8); Lymphocytes % (A) 23 %; MCHC 33.4 g/dL (31.0-37.0); MCV 93.1 fL (80.0-100.0); Mean Platelet Volume 7.9; Monocytes # (A) 0.4 k/uL (0-1.0); Monocytes % (A) 7 %; Neutrophils # (A) 3.3 k/uL (1.3-7.7); Neutrophils % (A) 59 %; RBC 3.43 m/uL (3.80-5.40); RDW 14.2 % (11.5-15.5); WBC 5.6 k/uL (3.8-10.6); WBC (Perox) 5.42
[2017-07-27 08:16] LABS: Calcium 9.3 mg/dL (8.4-10.2); Potassium 3.8 mmol/L (3.5-5.1); Total Bilirubin 0.3 mg/dL (0.2-1.3); Total Protein 5.9 g/dL (6.3-8.2)
[2017-07-27 08:52] LABS: Glucose,Whole Blood 187 mg/dL (75-99)
[2017-07-27 10:31] LABS: Glucose,Whole Blood 166 mg/dL (75-99)
[2017-07-27 10:58] LABS: Glucose,Whole Blood 175 mg/dL (75-99)
[2017-07-27 10:58] LABS: Glucose,Whole Blood 108 mg/dL (75-99)
[2017-07-27] MEDS ORDERED: POTASSIUM CHLORIDE 20 MEQ in WATER FOR INJECTION 1 100ML.BAG IVPB STA (10:58)
[2017-07-27 11:35] LABS: Glucose,Whole Blood 148 mg/dL (75-99)
[2017-07-27 12:31] LABS: Glucose,Whole Blood 139 mg/dL (75-99)
[2017-07-27 12:45] LABS: Glucose,Whole Blood 120 mg/dL (75-99)
[2017-07-27] MEDS ORDERED: ALBUMIN HUMAN 5% 250 ML in EMPTY BAG 1 BAG IVPB PRN (13:57)
[2017-07-27] MEDS ORDERED: BENZOCAINE/MENTHOL LOZENG 1 EACH LOZENGE MUCOUS MEM PRN (13:57)
[2017-07-27] MEDS ORDERED: METOCLOPRAMIDE 5 MG/ML 2 ML VIAL IVP PRN (13:57)
[2017-07-27] MEDS ORDERED: Potassium Replacement Protocol 1 EACH MISC MISCELLANE PRN (13:57)
[2017-07-27] MEDS ORDERED: hydrALAZINE HCL 20 MG/ML 1 ML VIAL IVP PRN (13:57)
[2017-07-27] MEDS ORDERED: ONDANSETRON 4 MG/2 ML VIAL IVP PRN (13:57)
[2017-07-27] MEDS ORDERED: CALCIUM GLUCONATE 2,000 MG in SODIUM CHLORIDE 0.9% 100 ML IVPB PRN (13:57)
[2017-07-27] MEDS ORDERED: ALPRAZolam 0.25 MG TAB PO PRN (13:57)
[2017-07-27] MEDS ORDERED: Phosphorus Replacement Protoco 1 EACH MISC MISCELLANE PRN (13:57)
[2017-07-27] MEDS ORDERED: MORPHINE SULFATE 2 MG/ML SYRINGE IVP PRN (13:57)
[2017-07-27] MEDS ORDERED: Magnesium Replacement Protocol 1 EACH MISC MISCELLANE PRN (13:57)
[2017-07-27] MEDS ORDERED: PROPOFOL 1,000 MG/100 ML VIAL IV SCH (14:00)
[2017-07-27 14:04] LABS: Glucose,Whole Blood 99 mg/dL (75-99)
[2017-07-27 14:24] LABS: ABG PH 7.59 (7.35-7.45)
[2017-07-27 14:25] LABS: ABG PCO2 30 mmHg (35-45); ABG PH 7.54 (7.35-7.45); ABG PO2 328 mmHg (83-108)
[2017-07-27 14:25] LABS: ABG Base Excess 4.6 mmol/L; ABG HCO3 26 mmol/L (21-25); ABG Hematocrit 29 % (34.0-46.0); ABG Oxygen Saturation 99.9 % (94-97); ABG PCO2 27 mmHg (35-45); ABG PO2 277 mmHg (83-108); ABG TCO2 27 mmol/L (19-24)
[2017-07-27 14:26] LABS: ABG Base Excess 2.9 mmol/L; ABG HCO3 25 mmol/L (21-25); ABG Hematocrit 28 % (34.0-46.0); ABG TCO2 26 mmol/L (19-24)
[2017-07-27 14:26] LABS: ABG Base Excess 2.5 mmol/L; ABG HCO3 25 mmol/L (21-25); ABG PH 7.55 (7.35-7.45); ABG PO2 292 mmHg (83-108); ABG TCO2 25 mmol/L (19-24)
[2017-07-27 14:26] LABS: ABG PH 7.38 (7.35-7.45)
[2017-07-27 14:27] LABS: ABG Base Excess 1.3 mmol/L; ABG HCO3 24 mmol/L (21-25); ABG PCO2 31 mmHg (35-45); ABG PO2 309 mmHg (83-108); ABG TCO2 25 mmol/L (19-24)
[2017-07-27 14:27] LABS: ABG Base Excess -1.3 mmol/L; ABG HCO3 23 mmol/L (21-25); ABG PCO2 40 mmHg (35-45); ABG PO2 >420 mmHg (83-108); ABG TCO2 24 mmol/L (19-24)
[2017-07-27 14:27] LABS: ABG Hematocrit 26 % (34.0-46.0); ABG Oxygen Saturation 99.9 % (94-97); ABG PCO2 28 mmHg (35-45)
[2017-07-27 14:28] LABS: ABG Base Excess 1.1 mmol/L; ABG HCO3 24 mmol/L (21-25); ABG Oxygen Saturation 99.9 % (94-97); ABG PCO2 30 mmHg (35-45); ABG PO2 303 mmHg (83-108); ABG TCO2 25 mmol/L (19-24)
[2017-07-27 14:28] LABS: ABG Hematocrit 26 % (34.0-46.0); ABG Oxygen Saturation 99.9 % (94-97)
[2017-07-27 14:29] LABS: ABG Hematocrit 23 % (34.0-46.0)
[2017-07-27 14:29] LABS: ABG PCO2 33 mmHg (35-45); ABG PH 7.46 (7.35-7.45)
[2017-07-27 14:30] LABS: ABG Base Excess 0.2 mmol/L; ABG HCO3 23 mmol/L (21-25); ABG Hematocrit 24 % (34.0-46.0); ABG Oxygen Saturation 99.9 % (94-97); ABG PO2 286 mmHg (83-108); ABG TCO2 24 mmol/L (19-24)
[2017-07-27 14:40] LABS: Ionized Calcium 4.5 mg/dL (4.5-5.3)
[2017-07-27 14:48] LABS: Basophils % (A) 0 %; CH 30.7; CHCM 32.3; Calcium 7.9 mg/dL (8.4-10.2); Eosinophils # (A) 0.3 k/uL (0-0.7); Eosinophils % (A) 3 %; HDW 2.89; Hypochromasia Slight; Luc # (Auto) 0.06; Luc % (Auto) 1; Lymphocytes # (A) 1.5 k/uL (1.0-4.8); Lymphocytes % (A) 14 %; MCH 31.6 pg (25.0-35.0); MCV 95.5 fL (80.0-100.0); Magnesium 2.3 mg/dL (1.6-2.3); Monocytes # (A) 0.4 k/uL (0-1.0); Monocytes % (A) 4 %; Neutrophils # (A) 8.6 k/uL (1.3-7.7); Neutrophils % (A) 79 %; Potassium 3.7 mmol/L (3.5-5.1); RDW 14.2 % (11.5-15.5); Total Bilirubin 0.2 mg/dL (0.2-1.3); Total Protein 5.1 g/dL (6.3-8.2); WBC 10.9 k/uL (3.8-10.6); WBC (Perox) 10.67
[2017-07-27 14:51] LABS: HGB 7.6 gm/dL (11.4-16.0); INR 1.3 (<1.2); Partial Thromboplastin Time 30.5 sec (22.0-30.0); Prothrombin Time 13.1 sec (9.0-12.0)
[2017-07-27 15:16] LABS: Glucose,Whole Blood 126 mg/dL (75-99)
--- NOTE | 2017-07-27 15:20 | XR ---
EXAMINATION TYPE: XR chest 1V portable DATE OF EXAM: 07/27/2017 COMPARISON: NONE HISTORY: Postop cardiac surgery FINDINGS: There are bilateral pleural effusions with cardiomegaly and bibasilar infiltrate. There is a diffuse interstitial pattern. Postoperative change. [place]-Brenda catheter somewhat distal within the right pulmonary artery. Mediastin al drain and chest tube noted with no sizable pneumothorax. ET tube approximately 1.9 cm above rashmi . NG tube noted. IMPRESSION: 1. Bilateral infiltrate and small effusion greater on the left correlate for mild central venous simone estion. 2. ET tube now 1.9 cm above rashmi.
--- NOTE | 2017-07-27 15:22 | P.CNPUL ---
History of Present Illness Consult date: 07/27/17 Requesting physician: Faisal Granados Reason for consult: other (Status post CABG, patient is presently on mechanical ventilation.) Chief complaint: Status post CABG History of present illness: This is a 72-year-old female who is primarily a patient of Dr. Malone, she has history of multiple medical problems including diabetes type 2, coronary artery disease and previous IA, previous stent placement to mid LAD, this was in February of 2016. She had a stent to RCA in May of 2016. And she had to be stenting of the mid LAD in November of 2016. Patient is also known to have history of end -stage renal disease, on hemodialysis. Chronic anemia of chronic disease, history of peripheral neuropathy, recent non-ST elevation myocardial infarction , and recent cardiac catheterization was done. This was done on 07/17/2017, and it showed triple-vessel coronary artery disease. Patient underwent elective myocardial revascularization today, postoperatively she was on mechanical ventilation, and I was asked to see her on consultation. Her present vent settings are IMV rate of 12, I will volume of 400, PEEP of 5, FiO2 of 100%. ABG showed a pO2 of over 400, and no acid base imbalance was noted. Chest x- ray showed endotracheal tube to be in the right mainstem bronchus, and I personally adjusted the endotracheal tube to just above the rashmi. No evidence of congestive heart failure or infiltrates, [place]-Brenda was noted to be a bit distal and this was adjusted by the nurse practitioner. Review of Systems ROS unobtainable: due to endotracheal tube Past Medical History Past Medical History: Coronary Artery Disease (CAD), Chest Pain / Angina, Diabetes Mellitus, Dialysis, Hyperlipidemia, Hypertension, Myocardial Infarction (IA), Renal Disease Additional Past Medical History / Comment(s): End-stage renal disease with hemodialysis 3 times a week usually has on . th, sat.-left arm AV fistula , Non-STEMI 03/14/16, peripheral neuropathy bilateral feet cataracts bilaterally , frequent UTI'S, stress incontinence. Last Myocardial Infarction Date:: 07/15/2017 History of Any Multi-Drug Resistant Organisms: None Reported Past Surgical History: Appendectomy, Cholecystectomy, Heart Catheterization, Heart Catheterization With Stent, Tonsillectomy Additional Past Surgical History / Comment(s): 03/15/16 PTCA with stent to mid LAD,7-19-16 HEART CATH STENT TO PROX RCA. Restented mid LAD 11/20/16 A/V fistula with revision L upper arm, history of Lasix eye surgery and cataract removal. Past Anesthesia/Blood Transfusion Reactions: No Reported Reaction Date of Last Stent Placement:: 11/21/2016 Smoking Status: Former smoker - Past Family History Father Family Medical History: Diabetes Mellitus Additional Family Medical History / Comment(s): Father of diabetic complications in his 40's Mother Family Medical History: Cancer, Myocardial Infarction (IA) Additional Family Medical History / Comment(s): Cancer unknown type. Mother of a IA in her early 50's Brother(s) Family Medical History: Cancer Additional Family Medical History / Comment(s): Her brother from lung cancer and cirrhosis of the liver. Medications and Allergies Home Medications Medication Instructions Recorded Confirmed Type Folic Acid-Vit B Complex-Vit C 1 cap PO DAILY 06/06/16 07/27/17 History [Nephrocaps] Citalopram Hydrobromide [CeleXA] 20 mg PO DAILY 08/05/16 07/27/17 History Isosorbide Mononitrate ER [Imdur] 30 mg PO DAILY 11/19/16 07/27/17 History Atorvastatin [Lipitor] 80 mg PO HS #30 tab 11/22/16 07/27/17 Rx Clopidogrel [Plavix] 75 mg PO DAILY #30 tab 11/22/16 07/27/17 Rx Nitroglycerin Sl Tabs [Nitrostat] 0.4 mg SUBLINGUAL Q5M PRN #25 tab 11/22/1606/05 Rx Furosemide [Lasix] 40 mg PO DAILY 04/21/17 07/27/17 History Meclizine [Antivert] 25 mg PO BID PRN 04/21/17 07/27/17 History Insulin Glargine,Hum.rec.anlog 40 unit SQ QAM 06/03/17 07/27/17 History [Lantus Solostar] Ondansetron Odt [Zofran ODT] 4 mg PO Q8HR PRN #10 tab 06/24/17 07/27/17 Rx Calcium Acetate [PhosLo] 1,334 mg PO AC-TID cap 07/18/17 07/27/17 Rx Carvedilol [Coreg*] 25 mg PO BID-W/MEALS tab 07/18/17 07/27/17 Rx Cholecalciferol [Vitamin D3] 1,000 unit PO DAILY tab 07/18/17 07/27/17 Rx Cyanocobalamin [Vitamin B-12] 1,000 mcg PO DAILY tab 07/18/17 07/27/17 Rx Ferrous Sulfate [Iron (65 MG 325 mg PO BID-W/MEALS tab 07/18/17 07/27/17 Rx Elemental)] Aspirin 325 mg PO DAILY 07/21/17 07/27/17 History Allergies Allergy/AdvReac Type Severity Reaction Status Date / Time glyburide [From Diabeta] Allergy Rash/Hives Verified 07/27/17 06:03 Physical Exam Vitals: Vital Signs Temp Pulse Resp BP Pulse Ox 07/27/17 06:05 98.3 F 71 16 153/63 97 Intake and Output 07/27/17 07/27/17 07/27/17 06:59 14:59 22:59 Intake Total 200 32 Output Total 1020 Balance 200 -988 Intake: IV 200 32 Output: Urine 20 Estimated Blood Loss 1000 Physical Exam: Revealed a 72-year-old female on mechanical ventilation, sedated , in no distress. HEENT:[Neck is supple.] [No neck masses.] [No thyromegaly.] [No JVD.] Chest: [Diminished breath sounds bilaterally, no rhonchi, no crackles, no wheezes.] Cardiac Exam: [Normal S1 and S2, no S3 gallop, no murmur.] Abdomen: [Soft, nontender, no megaly, no rebound, no guarding, normal bowel sounds.] Extremities: [No clubbing, no edema, no cyanosis. AV fistula noted in the left forearm. Bruit was felt over the forearm.] Neurological Exam: [No focal neurologic deficit.] Results - Laboratory Findings CBC and BMP: 07/27/17 14:00 07/27/17 14:00 ABG ABG pH 7.38 (7.35-7.45) 07/27/17 14:20 ABG pCO2 40 mmHg (35-45) 07/27/17 14:20 ABG pO2 >420 mmHg (83-108) H 07/27/17 14:20 ABG O2 Saturation 100.0 % (94-97) H 07/27/17 14:20 PT/INR, D-dimer PT 13.1 sec (9.0-12.0) H 07/27/17 14:00 INR 1.3 (<1.2) H 07/27/17 14:00 Abnormal lab findings: Abnormal Labs 07/21/17 07/27/17 07/27/17 13:00 06:11 07:19 WBC RBC Hgb Hct Plt Count Neutrophils # PT INR APTT ABG pH ABG pCO2 ABG pO2 ABG HCO3 ABG Total CO2 ABG O2 Saturation ABG Hematocrit ABG Potassium BUN 20 H Creatinine 4.05 H Glucose 208 H POC Glucose (mg/dL) 183 H Calcium Total Protein 5.9 L Albumin 3.1 L Arterial Blood Potassium Crossmatch See Detail 07/27/17 07/27/17 07/27/17 08:01 08:41 08:41 WBC RBC 3.43 L Hgb 10.7 L Hct 31.9 L Plt Count Neutrophils # PT INR APTT ABG pH 7.59 H ABG pCO2 27 L ABG pO2 277 H ABG HCO3 26 H ABG Total CO2 27 H ABG O2 Saturation 99.9 H ABG Hematocrit 29 L ABG Potassium BUN Creatinine Glucose POC Glucose (mg/dL) 187 H Calcium Total Protein Albumin Arterial Blood Potassium Crossmatch 07/27/17 07/27/17 07/27/17 10:16 10:17 10:48 WBC RBC Hgb Hct Plt Count Neutrophils # PT INR APTT ABG pH 7.54 H ABG pCO2 30 L ABG pO2 328 H ABG HCO3 ABG Total CO2 26 H ABG O2 Saturation 100.0 H ABG Hematocrit 28 L ABG Potassium BUN Creatinine Glucose POC Glucose (mg/dL) 166 H 175 H Calcium Total Protein Albumin Arterial Blood Potassium Crossmatch 07/27/17 07/27/17 07/27/17 10:48 10:56 11:33 WBC RBC Hgb Hct Plt Count Neutrophils # PT INR APTT ABG pH 7.55 H ABG pCO2 28 L ABG pO2 292 H ABG HCO3 ABG Total CO2 25 H ABG O2 Saturation 99.9 H ABG Hematocrit 26 L ABG Potassium BUN Creatinine Glucose POC Glucose (mg/dL) 108 H 148 H Calcium Total Protein Albumin Arterial Blood Potassium Crossmatch 07/27/17 07/27/17 07/27/17 11:33 12:17 12:18 WBC RBC Hgb Hct Plt Count Neutrophils # PT INR APTT ABG pH 7.50 H 7.50 H ABG pCO2 31 L 30 L ABG pO2 309 H 303 H ABG HCO3 ABG Total CO2 25 H 25 H ABG O2 Saturation 99.9 H 99.9 H ABG Hematocrit 26 L 23 L ABG Potassium 3.3 L BUN Creatinine Glucose POC Glucose (mg/dL) 139 H Calcium Total Protein Albumin Arterial Blood Potassium 3.3 L Crossmatch 07/27/17 07/27/17 07/27/17 12:42 12:42 14:00 WBC 10.9 H RBC 2.40 L Hgb 7.6 L D Hct 23.0 L Plt Count 141 L Neutrophils # 8.6 H PT INR APTT ABG pH 7.46 H ABG pCO2 33 L ABG pO2 286 H ABG HCO3 ABG Total CO2 ABG O2 Saturation 99.9 H ABG Hematocrit 24 L ABG Potassium 3.2 L BUN Creatinine Glucose POC Glucose (mg/dL) 120 H Calcium Total Protein Albumin Arterial Blood Potassium 3.2 L Crossmatch 07/27/17 07/27/17 07/27/17 14:00 14:00 14:20 WBC RBC Hgb Hct Plt Count Neutrophils # PT 13.1 H INR 1.3 H APTT 30.5 H ABG pH ABG pCO2 ABG pO2 >420 H ABG HCO3 ABG Total CO2 ABG O2 Saturation 100.0 H ABG Hematocrit ABG Potassium BUN 19 H Creatinine 3.66 H Glucose POC Glucose (mg/dL) Calcium 7.9 L Total Protein 5.1 L Albumin Arterial Blood Potassium Crossmatch - Diagnostic Findings Chest x-ray: image reviewed (No evidence of active disease, postoperative changes noted. Lines and tubes were noted to be in proper position except for the endotracheal tube and the [place]-Brenda catheter both were adjusted.) Assessment and Plan Plan: Impression: 1 status post CABG, patient is presently on mechanical ventilation. 2 history of coronary artery disease/triple-vessel coronary artery disease, recent non-ST elevation myocardial infarction. 3 history of congestive heart failure. 4 history of end-stage renal disease on hemodialysis. 5 history of type 2 diabetes 6 history of mixed hyperlipidemia. 7 postoperative hypotension, being addressed by thoracic surgery staff upon arrival to the ICU. Recommendation: Chest x-ray, labs were all reviewed, endotracheal tube was adjusted, PA catheter was also adjusted, ventilator settings were addressed, patient's FiO2 will be dropped down to 45%. Continue the other vent settings as unchanged. We'll continue to follow closely. Time with Patient: Greater than 30
--- NOTE | 2017-07-27 15:22 | XR ---
EXAMINATION TYPE: XR chest 1V portable DATE OF EXAM: 07/27/2017 COMPARISON: 07/15/2017 HISTORY: Postop cardiac surgery TECHNIQUE: Single frontal view of the chest is obtained. FINDINGS: ET tube within the right mainstem bronchus. ICU notified. NG tube noted. [place]-Brenda cathete r somewhat distal within the right pulmonary artery. Mediastinal drain suggested. No sizable pneumoth orax. Bilateral infiltrate and small effusion greater on the left. IMPRESSION: 1. ET tube within the proximal right mainstem bronchus. ICU notified. 2. Postsurgical change and areas of infiltrate and pleural effusion.
--- NOTE | 2017-07-27 15:25 | XR ---
EXAMINATION TYPE: XR chest 1V portable DATE OF EXAM: 07/27/2017 COMPARISON: NONE HISTORY: Pain TECHNIQUE: Single frontal view of the chest is obtained. FINDINGS: There are bilateral pleural effusions with cardiomegaly and bibasilar infiltrate. There is a diffuse interstitial pattern. Postoperative change. [place]-Brenda catheter somewhat distal within the right pulmonary artery. Mediastinal drain and chest tube noted with no sizable pneumothorax. ET tube approximately 1.9 cm above rashmi. NG tube noted. IMPRESSION: 1. Bilateral infiltrate and small effusion greater on the left correlate for mild central venous simone estion. 2. ET tube now 1.9 cm above rashmi.
[2017-07-27] MEDS: ceFAZolin 2 GM in SODIUM CHLORIDE 0.9% 100 ML IVPB SCH ×2 (15:47→23:40)
[2017-07-27] MEDS: IPRATROPIUM-ALBUTEROL 3 ML NEB INHALATION SCH ×2 (15:48→19:34)
--- NOTE | 2017-07-27 15:57 | P.OP ---
Date of Procedure: 07/27/17 Preoperative Diagnosis: Coronary artery disease Postoperative Diagnosis: Same Procedure(s) Performed: Off pump CABG 3 with BARROS to LAD and saphenous vein grafts to obtuse marginal and posterior descending coronary arteries with endovascular vein harvest and YUE by anesthesia Implants: Anesthesia: SOPHIEA Surgeon: Faisal Granados Facilities Project Manager #1: David Bosch Facilities Project Manager #2: [place] Pathology: none sent Condition: stable Disposition: ICU Indications for Procedure: 72-year-old female with stable worsening anginal symptomatology three-vessel coronary artery disease and previous stenting. Operative Findings: YUE preoperatively showed normal ejection fraction in the 55-60% range, mild mitral regurgitation and otherwise normal valvular function. Postoperative YUE demonstrated trace mitral regurgitation and 65-75% ejection fraction with marked improvement in the LVEF. Coronary arteries were diffusely and heavily calcified. Soft spots were grafted in the LAD and the PDA. Circumflex vessel was heavily calcified proximally and this appeared intramyocardially. We had to dissected out from a long intramyocardial tunnel to reach a soft area. Here the vessel was still disease but no longer calcified. 1.5 probe passed in all 3 vessels. The aorta was thickened but did not have significant calcification by palpation. Description of Procedure: Patient was brought to the operating room, placed supine on the operating table , anesthetized and intubated. [place]-Brenda catheter had been placed via the right internal jugular approach. [place] and nasogastric tubes were placed. YUE probe was placed with the findings as noted above. The anterior torso and bilateral lower extremities were sterilely prepped and draped. Saphenous vein was harvested from the left lower extremity. The greater saphenous vein was harvested from mid calf to groin. It was of good quality. Simultaneous sternotomy was performed and the left hemisternum retracted upwards. The left internal mammary artery was harvested on a vascularized pedicle, left intact on its origin from the subclavian and divided distally. The left pleural space was drained with a 32-[place] chest tube. Standard sternal retractor was placed. The right pleural space was opened. The pericardium was opened in the midline and the heart was exposed with pericardial sutures. The targets were identified. The vessels were heavily calcified and diseased throughout. Findings as noted above. The LAD was grafted in its midportion with the BARROS in end-to-side fashion. On opening the LAD a 1.5 mm probe was passed and then a 1.5 mm flow through was placed. End to side anastomosis between the BARROS and the LAD was performed with running 8-0 Prolene suture. On completion of the anastomosis the flow through was removed effectively probing the proximal distal portion anastomosis suture was tied with good result and hemostasis and the inflow was open. Graft was noted to lay well and have no kinking. The BUZZ pedicle was tacked surrounding epicardium with 6-0 silk. Next the saphenous vein was cut into 2 lengths to reach the PDA and the OM. It was attached to the ascending aorta with 2 passport anastomotic connectors. The inferior wall was first exposed. The PDA was a diffusely and heavily calcified vessel. It was grafted in its midportion and a soft spot. Here was opened and a 1.5 mm flow through was passed end-to-side anastomosis between the saphenous vein and the PDA was performed with running 7-0 Prolene. On completion of the anastomosis the flow through was removed effectively probing the proximal distal portion of the anastomosis. Suture was tied with good resultant hemostasis and the inflow open. The heart was lowered into anatomic position and the graft was noted to lay well. Lateral wall was exposed. The major marginal branch was heavily calcified proximally and completely occluded by cath. We dissected along it into the myocardium for about distance of about an inch and a half before reaching a soft vessel. Here was a 1.5-1.75 mm vessel which was still disease but at least soft. Was opened and had an excellent lumen. Blood flow was controlled with a 1.5 mm flow through. Anastomosis of the second saphenous vein to the obtuse marginal was performed with running 7-0 Prolene suture. On completion the anastomosis the flow through was removed effectively probing the proximal distal portion anastomosis. Suture was tied with good result and hemostasis and the inflow open. Heart lowered into anatomic position. All the grafts were noted to lie well. Good hemostasis was verified throughout. Heparin was reversed with protamine chest was irrigated with antibiotic solution mediastinum was drained with 36-[place]amo[place] chest tube in the sternum was closed. 3 sternal wires were used in the manubrium and 2 in the lower sternal body. 3 Mersilene band's were used in the upper sternal body. The fascia was closed with 0 Ethibond. The subcutaneous and subcuticular layers with layers of Vicryl suture. Dry sterile dressings were applied and the patient was transferred to the CCU in stable condition.
[2017-07-27 16:09] LABS: Glucose,Whole Blood 103 mg/dL (75-99)
[2017-07-27 17:15] LABS: Glucose,Whole Blood 126 mg/dL (75-99)
[2017-07-27] MEDS: POTASSIUM CHLORIDE 10 MEQ, LIDOCAINE 2% INJ 10 MG in SODIUM CHLORIDE 0.9% 100 ML IV SCH ×2 (17:31→18:10)
[2017-07-27] MEDS: LACTATED RINGERS 1,000 ML IV SCH (17:32)
[2017-07-27] MEDS: DOPamine DRIP 800 MG in DEXTROSE/WATER 1 500ML.BAG IV SCH (17:35)
[2017-07-27 18:00] LABS: Glucose,Whole Blood 149 mg/dL (75-99)
[2017-07-27 18:05] LABS: Basophils % (A) 0 %; CH 31.8; CHCM 33.7; Eosinophils # (A) 0.2 k/uL (0-0.7); Eosinophils % (A) 2 %; HCT 22.8 % (34.0-46.0); HDW 2.93; HGB 7.4 gm/dL (11.4-16.0); Luc # (Auto) 0.14; Luc % (Auto) 2; Lymphocytes # (A) 1.1 k/uL (1.0-4.8); Lymphocytes % (A) 12 %; MCH 30.9 pg (25.0-35.0); MCHC 32.5 g/dL (31.0-37.0); Mean Platelet Volume 10.3; Monocytes # (A) 0.5 k/uL (0-1.0); Monocytes % (A) 6 %; Neutrophils # (A) 7.2 k/uL (1.3-7.7); Neutrophils % (A) 79 %; RDW 14.7 % (11.5-15.5); WBC 9.1 k/uL (3.8-10.6)
[2017-07-27] MEDS: NITROGLYCERIN-D5W PMX 50 MG in DEXTROSE/WATER 1 250ML.BAG IV SCH (18:10)
[2017-07-27] MEDS: ACETAMINOPHEN IV (For NPO) 1,000 MG in EMPTY BAG 1 BAG IVPB SCH ×2 (18:10→23:40)
[2017-07-27] MEDS ORDERED: INSULIN REGULAR 100 UNIT in SODIUM CHLORIDE 0.9% 100 ML IV SCH (18:15)
[2017-07-27 19:07] LABS: Glucose,Whole Blood 147 mg/dL (75-99)
[2017-07-27 19:59] LABS: Glucose,Whole Blood 136 mg/dL (75-99)
[2017-07-27 20:18] LABS: Ionized Calcium 4.5 mg/dL (4.5-5.3)
[2017-07-27 20:20] LABS: Basophils % (A) 0 %; CH 31.6; CHCM 33.4; Eosinophils # (A) 0.1 k/uL (0-0.7); Eosinophils % (A) 2 %; HCT 23.3 % (34.0-46.0); HDW 2.84; HGB 7.7 gm/dL (11.4-16.0); Luc # (Auto) 0.11; Luc % (Auto) 1; Lymphocytes # (A) 0.7 k/uL (1.0-4.8); Lymphocytes % (A) 9 %; MCH 31.3 pg (25.0-35.0); MCHC 32.9 g/dL (31.0-37.0); MCV 95.2 fL (80.0-100.0); Mean Platelet Volume 8.6; Monocytes # (A) 0.3 k/uL (0-1.0); Monocytes % (A) 4 %; Neutrophils # (A) 6.8 k/uL (1.3-7.7); Neutrophils % (A) 84 %; RBC 2.45 m/uL (3.80-5.40); RDW 14.5 % (11.5-15.5); WBC 8.2 k/uL (3.8-10.6); WBC (Perox) 8.32
[2017-07-27 20:30] LABS: Calcium 8.2 mg/dL (8.4-10.2); Magnesium 2.1 mg/dL (1.6-2.3); Potassium 4.4 mmol/L (3.5-5.1)
[2017-07-27] MEDS: CLEVIDIPINE BUTYRATE 25 MG in EMPTY BAG 1 BAG IV SCH (20:36)
[2017-07-27 20:58] LABS: Glucose,Whole Blood 118 mg/dL (75-99)
[2017-07-27 22:04] LABS: Glucose,Whole Blood 131 mg/dL (75-99)
[2017-07-27 23:01] LABS: Glucose,Whole Blood 120 mg/dL (75-99)
[2017-07-27] MEDS: MUPIROCIN 2% OINT 22 GM TUBE NASAL SCH (23:41)
[2017-07-27] MEDS: HEPARIN SODIUM,PORCINE 5,000 UNIT/ML 1 ML VIAL SQ SCH (23:43)
[2017-07-28 00:04] LABS: Glucose,Whole Blood 119 mg/dL (75-99)
[2017-07-28 01:07] LABS: Glucose,Whole Blood 127 mg/dL (75-99)
[2017-07-28 01:51] LABS: ABG HCO3 22 mmol/L (21-25); ABG PCO2 44 mmHg (35-45); ABG PH 7.32 (7.35-7.45); ABG PO2 98 mmHg (83-108); ABG TCO2 23 mmol/L (19-24)
[2017-07-28 02:03] LABS: Glucose,Whole Blood 137 mg/dL (75-99)
[2017-07-28 03:03] LABS: Glucose,Whole Blood 149 mg/dL (75-99)
[2017-07-28] MEDS: KETOROLAC 30 MG/ML 1 ML VIAL IVP PRN ×2 (04:00→14:09)
[2017-07-28 04:01] LABS: Glucose,Whole Blood 166 mg/dL (75-99)
[2017-07-28 04:15] LABS: Basophils % (A) 0 %; CH 31.4; CHCM 32.6; Eosinophils % (A) 0 %; HCT 25.9 % (34.0-46.0); HDW 2.93; HGB 8.1 gm/dL (11.4-16.0); Luc # (Auto) 0.13; Luc % (Auto) 1; Lymphocytes # (A) 0.6 k/uL (1.0-4.8); Lymphocytes % (A) 5 %; MCH 30.3 pg (25.0-35.0); MCHC 31.2 g/dL (31.0-37.0); MCV 97.1 fL (80.0-100.0); Mean Platelet Volume 9.2; Monocytes # (A) 0.5 k/uL (0-1.0); Monocytes % (A) 4 %; Neutrophils # (A) 9.7 k/uL (1.3-7.7); Neutrophils % (A) 89 %; RBC 2.67 m/uL (3.80-5.40); RDW 14.9 % (11.5-15.5); WBC 10.9 k/uL (3.8-10.6); WBC (Perox) 11.23
[2017-07-28 04:22] LABS: INR 1.2 (<1.2); Ionized Calcium 4.8 mg/dL (4.5-5.3); Prothrombin Time 12.2 sec (9.0-12.0)
[2017-07-28 04:31] LABS: Calcium 8.5 mg/dL (8.4-10.2); Magnesium 2.1 mg/dL (1.6-2.3); Total Bilirubin 0.1 mg/dL (0.2-1.3); Total Protein 5.4 g/dL (6.3-8.2)
[2017-07-28 04:59] LABS: Glucose,Whole Blood 157 mg/dL (75-99)
[2017-07-28] MEDS: ACETAMINOPHEN IV (For NPO) 1,000 MG in EMPTY BAG 1 BAG IVPB SCH ×2 (05:32→14:09)
[2017-07-28 06:43] LABS: Glucose,Whole Blood 140 mg/dL (75-99)
[2017-07-28] MEDS: ceFAZolin 2 GM in SODIUM CHLORIDE 0.9% 100 ML IVPB SCH (07:20)
[2017-07-28] MEDS: HEPARIN SODIUM,PORCINE 5,000 UNIT/ML 1 ML VIAL SQ SCH ×2 (07:20→15:43)
--- NOTE | 2017-07-28 07:51 | XR ---
EXAMINATION TYPE: XR chest 1V portable DATE OF EXAM: 07/28/2017 HISTORY: Post Op CABG COMPARISON: 07/27/2017 TECHNIQUE: Single view of the chest is submitted. FINDINGS: Endotracheal tube, NG tube have been removed. [place]-Brenda catheter has been repositioned. Mediastinal d rains and left-sided chest tube are in place. Post operative changes of CABG. No sizeable pneumothorax. Scattered Pleural-parenchymal opacities may reflect atelectasis. The heart is not enlarged. IMPRESSION: 1. Post operative changes of CABG.
[2017-07-28 07:56] LABS: Glucose,Whole Blood 141 mg/dL (75-99)
[2017-07-28 08:56] LABS: Glucose,Whole Blood 117 mg/dL (75-99)
[2017-07-28] MEDS: PANTOPRAZOLE 40 MG/10 ML VIAL IVP SCH (09:35)
[2017-07-28] MEDS: LACTATED RINGERS 1,000 ML IV SCH (09:36)
[2017-07-28] MEDS: ASPIRIN 325 MG TAB PO SCH (09:36)
[2017-07-28] MEDS: METOPROLOL TARTRATE 12.5 MG TAB PO SCH ×2 (09:36→20:49)
[2017-07-28] MEDS: ATORVASTATIN 40 MG TAB PO SCH (09:36)
[2017-07-28] MEDS: MUPIROCIN 2% OINT 22 GM TUBE NASAL SCH ×2 (09:37→20:49)
--- NOTE | 2017-07-28 09:39 | P.PN ---
Subjective Principal diagnosis: Symptomatic multivessel coronary artery disease. History of non-ST elevation myocardial infarction, history of coronary artery disease with previously placed stents. History of anemia of chronic disease. History of congestive heart failure. End stage renal disease. Hyperlipidemia. POD #1, off-pump coronary artery bypass grafting 3 with left internal mammary artery to the left anterior descending coronary artery, a reverse greater saphenous vein graft to his obtuse marginal coronary artery and to his posterior descending coronary artery. Endovascular vein harvest of her left greater saphenous vein, intraoperative epi-aortic ultrasound and transesophageal echocardiogram by anesthesia. Patient is awake and alert, oriented 3. No acute distress. She rates her pain currently on the pain scale at 7 out of 10 to her chest tube insertion sites. She is currently receiving hemodialysis. Objective - Vital Signs Vital signs: Vital Signs Temp 97 F L 07/28/17 08:00 Pulse 80 07/28/17 08:00 Resp 12 07/28/17 08:00 BP 111/53 07/28/17 08:00 Pulse Ox 97 07/28/17 08:00 Intake & Output 07/27/17 07/28/17 07/28/17 18:59 06:59 18:59 Intake Total 1378.97 98.831 29.76 Output Total 1245 227 20 Balance 133.97 -128.169 9.76 Weight 88.8 kg 88.8 kg Intake: IV 32 Intake, IV Titration 1346.97 98.831 29.76 Amount ACETAMINOPHEN IV (For NPO 100 ) 1,000 mg In Empty Bag 1 bag @ 400 mls/hr IVPB Q6HR JON[facility] Rx#:[id number] Albumin Human 5% 250 ml 750 In Empty Bag 1 bag @ 250 mls/hr IVPB Q1HR PRN Rx#: [id number] DOPamine DRIP 800 mg In 11.11 Dextrose/Water 1 500ml. bag @ 2 MCG/KG/MIN 6.23 mls/hr IV .Q24H JONH Rx#: [id number] Insulin Regular 100 unit 7.025 9.01 In Sodium Chloride 0.9% 100 ml @ Per Protocol IV .Q0M JONH Rx#:[id number] Lactated Ringers 1,000 ml 180 50 @ 50 mls/hr IV .Q20H JONH Rx#:[id number] Nitroglycerin-D5w Pmx 50 20.75 mg In Dextrose/Water 1 250ml.bag @ 5 MCG/MIN 1.5 mls/hr IV .Q24H JONH Rx#: [id number] Potassium Chloride 10 meq 200 Lidocaine 2% Inj 10 mg In Sodium Chloride 0.9% 100 ml @ 100 mls/hr IV Q1HR JONH Rx#:[id number] Propofol 1,000 mg In 100 16.97 30.696 ml @ Titrate IV .Q0M JON[facility] Rx#:[id number] ceFAZolin 2 gm In Sodium 100 Chloride 0.9% 100 ml @ 100 mls/hr IVPB Q8HR JONH Rx#:[id number] Output: Chest Tube Drainage 130 212 20 Left Pleural/Mediastinal 35 42 0 Mediastinal 95 170 20 Urine 115 15 Estimated Blood Loss 1000 Other: Voiding Method Indwelling Catheter Indwelling Catheter Indwelling Catheter ABP, PAP, CO, CI - Last Documented Arterial Blood Pressure 124/34 Pulmonary Artery Pressure 22/10 Cardiac Output 4.3 Cardiac Index 2.3 - Constitutional General appearance: Present: cooperative, no acute distress, obese - EENT Eyes: Present: PERRLA, normal appearance ENT: Present: hearing grossly normal - Neck Details: No lymphadenopathy, no JVD. Right IJ Cordis with [place]-Brenda catheter in place. Current cardiac output 4.3, cardiac index 2.3, PA pressures 25/11, CVP 8. - Respiratory Details: Essentially clear throughout, diminished to her bilateral bases. Respirations are symmetrical and unlabored. Oxygen saturations are 94% on 2 L nasal cannula. She is achieving 500 mL on her incentive spirometry. - Cardiovascular Details: Regular rhythm and rate. S1 and S2 present, negative for S3, gallop or murmur. Sternum is stable. Remote telemetry showing normal sinus rhythm with first- degree heart block heart rate is 72. Heart hugger in place, patient is demonstrating appropriate use of her heart hugger. Knee-high MAAME hose and sequential compression devices in place to her bilateral lower extremities. - Gastrointestinal Gastrointestinal Comment(s): Abdomen is soft, nontender and nondistended. Active bowel sounds all 4 abdominal quadrants. She is tolerating an oral diet. - Genitourinary Genitourinary Comment(s): Left upper arm AV fistula with good thrill and bruit. She is receiving hemodialysis at this time. [place] catheter with marginal urine output. Clear yellow urine. - Neurologic Neurologic Comment(s): No focal deficits. Neurologic: Present: CNII-XII intact - Musculoskeletal Musculoskeletal: Present: generalized weakness, strength equal bilaterally - Psychiatric Psychiatric: Present: A&O x's 3, appropriate affect, intact judgment & insight - Allied health notes Allied health notes reviewed: nursing - Labs CBC & Chem 7: 07/28/17 04:00 07/28/17 04:00 Labs: Abnormal Lab Results - Last 24 Hours (Table) 07/21/17 07/27/17 07/27/17 Range/Units 13:00 08:41 10:16 WBC (3.8-10.6) k/uL RBC (3.80-5.40) m/uL Hgb (11.4-16.0) gm/dL Hct (34.0-46.0) % Plt Count (150-450) k/uL Neutrophils # (1.3-7.7) k/uL Lymphocytes # (1.0-4.8) k/uL PT (9.0-12.0) sec INR (<1.2) APTT (22.0-30.0) sec ABG pH 7.59 H (7.35-7.45) ABG pCO2 27 L (35-45) mmHg ABG pO2 277 H (83-108) mmHg ABG HCO3 26 H (21-25) mmol/L ABG Total CO2 27 H (19-24) mmol/L ABG O2 Saturation 99.9 H (94-97) % ABG Hematocrit 29 L (34.0-46.0) % ABG Potassium (3.4-4.5) mmol/L Chloride (98-107) mmol/L Carbon Dioxide (22-30) mmol/L BUN (7-17) mg/dL Creatinine (0.52-1.04) mg/dL Glucose (74-99) mg/dL POC Glucose (mg/dL) 166 H (75-99) mg/dL Calcium (8.4-10.2) mg/dL Total Bilirubin (0.2-1.3) mg/dL Total Protein (6.3-8.2) g/dL Arterial Blood Potassium (3.4-4.5) mmol/L Crossmatch See Detail 07/27/17 07/27/17 07/27/17 Range/Units 10:17 10:48 10:48 WBC (3.8-10.6) k/uL RBC (3.80-5.40) m/uL Hgb (11.4-16.0) gm/dL Hct (34.0-46.0) % Plt Count (150-450) k/uL Neutrophils # (1.3-7.7) k/uL Lymphocytes # (1.0-4.8) k/uL PT (9.0-12.0) sec INR (<1.2) APTT (22.0-30.0) sec ABG pH 7.54 H 7.55 H (7.35-7.45) ABG pCO2 30 L 28 L (35-45) mmHg ABG pO2 328 H 292 H (83-108) mmHg ABG HCO3 (21-25) mmol/L ABG Total CO2 26 H 25 H (19-24) mmol/L ABG O2 Saturation 100.0 H 99.9 H (94-97) % ABG Hematocrit 28 L 26 L (34.0-46.0) % ABG Potassium (3.4-4.5) mmol/L Chloride (98-107) mmol/L Carbon Dioxide (22-30) mmol/L BUN (7-17) mg/dL Creatinine (0.52-1.04) mg/dL Glucose (74-99) mg/dL POC Glucose (mg/dL) 175 H (75-99) mg/dL Calcium (8.4-10.2) mg/dL Total Bilirubin (0.2-1.3) mg/dL Total Protein (6.3-8.2) g/dL Arterial Blood Potassium (3.4-4.5) mmol/L Crossmatch 07/27/17 07/27/17 07/27/17 Range/Units 10:56 11:33 11:33 WBC (3.8-10.6) k/uL RBC (3.80-5.40) m/uL Hgb (11.4-16.0) gm/dL Hct (34.0-46.0) % Plt Count (150-450) k/uL Neutrophils # (1.3-7.7) k/uL Lymphocytes # (1.0-4.8) k/uL PT (9.0-12.0) sec INR (<1.2) APTT (22.0-30.0) sec ABG pH 7.50 H (7.35-7.45) ABG pCO2 31 L (35-45) mmHg ABG pO2 309 H (83-108) mmHg ABG HCO3 (21-25) mmol/L ABG Total CO2 25 H (19-24) mmol/L ABG O2 Saturation 99.9 H (94-97) % ABG Hematocrit 26 L (34.0-46.0) % ABG Potassium 3.3 L (3.4-4.5) mmol/L Chloride (98-107) mmol/L Carbon Dioxide (22-30) mmol/L BUN (7-17) mg/dL Creatinine (0.52-1.04) mg/dL Glucose (74-99) mg/dL POC Glucose (mg/dL) 108 H 148 H (75-99) mg/dL Calcium (8.4-10.2) mg/dL Total Bilirubin (0.2-1.3) mg/dL Total Protein (6.3-8.2) g/dL Arterial Blood Potassium 3.3 L (3.4-4.5) mmol/L Crossmatch 07/27/17 07/27/17 07/27/17 Range/Units 12:17 12:18 12:42 WBC (3.8-10.6) k/uL RBC (3.80-5.40) m/uL Hgb (11.4-16.0) gm/dL Hct (34.0-46.0) % Plt Count (150-450) k/uL Neutrophils # (1.3-7.7) k/uL Lymphocytes # (1.0-4.8) k/uL PT (9.0-12.0) sec INR (<1.2) APTT (22.0-30.0) sec ABG pH 7.50 H (7.35-7.45) ABG pCO2 30 L (35-45) mmHg ABG pO2 303 H (83-108) mmHg ABG HCO3 (21-25) mmol/L ABG Total CO2 25 H (19-24) mmol/L ABG O2 Saturation 99.9 H (94-97) % ABG Hematocrit 23 L (34.0-46.0) % ABG Potassium (3.4-4.5) mmol/L Chloride (98-107) mmol/L Carbon Dioxide (22-30) mmol/L BUN (7-17) mg/dL Creatinine (0.52-1.04) mg/dL Glucose (74-99) mg/dL POC Glucose (mg/dL) 139 H 120 H (75-99) mg/dL Calcium (8.4-10.2) mg/dL Total Bilirubin (0.2-1.3) mg/dL Total Protein (6.3-8.2) g/dL Arterial Blood Potassium (3.4-4.5) mmol/L Crossmatch 07/27/17 07/27/17 07/27/17 Range/Units 12:42 14:00 14:00 WBC 10.9 H (3.8-10.6) k/uL RBC 2.40 L (3.80-5.40) m/uL Hgb 7.6 L D (11.4-16.0) gm/dL Hct 23.0 L (34.0-46.0) % Plt Count 141 L (150-450) k/uL Neutrophils # 8.6 H (1.3-7.7) k/uL Lymphocytes # (1.0-4.8) k/uL PT (9.0-12.0) sec INR (<1.2) APTT (22.0-30.0) sec ABG pH 7.46 H (7.35-7.45) ABG pCO2 33 L (35-45) mmHg ABG pO2 286 H (83-108) mmHg ABG HCO3 (21-25) mmol/L ABG Total CO2 (19-24) mmol/L ABG O2 Saturation 99.9 H (94-97) % ABG Hematocrit 24 L (34.0-46.0) % ABG Potassium 3.2 L (3.4-4.5) mmol/L Chloride (98-107) mmol/L Carbon Dioxide (22-30) mmol/L BUN 19 H (7-17) mg/dL Creatinine 3.66 H (0.52-1.04) mg/dL Glucose (74-99) mg/dL POC Glucose (mg/dL) (75-99) mg/dL Calcium 7.9 L (8.4-10.2) mg/dL Total Bilirubin (0.2-1.3) mg/dL Total Protein 5.1 L (6.3-8.2) g/dL Arterial Blood Potassium 3.2 L (3.4-4.5) mmol/L Crossmatch 07/27/17 07/27/17 07/27/17 Range/Units 14:00 14:20 15:11 WBC (3.8-10.6) k/uL RBC (3.80-5.40) m/uL Hgb (11.4-16.0) gm/dL Hct (34.0-46.0) % Plt Count (150-450) k/uL Neutrophils # (1.3-7.7) k/uL Lymphocytes # (1.0-4.8) k/uL PT 13.1 H (9.0-12.0) sec INR 1.3 H (<1.2) APTT 30.5 H (22.0-30.0) sec ABG pH (7.35-7.45) ABG pCO2 (35-45) mmHg ABG pO2 >420 H (83-108) mmHg ABG HCO3 (21-25) mmol/L ABG Total CO2 (19-24) mmol/L ABG O2 Saturation 100.0 H (94-97) % ABG Hematocrit (34.0-46.0) % ABG Potassium (3.4-4.5) mmol/L Chloride (98-107) mmol/L Carbon Dioxide (22-30) mmol/L BUN (7-17) mg/dL Creatinine (0.52-1.04) mg/dL Glucose (74-99) mg/dL POC Glucose (mg/dL) 126 H (75-99) mg/dL Calcium (8.4-10.2) mg/dL Total Bilirubin (0.2-1.3) mg/dL Total Protein (6.3-8.2) g/dL Arterial Blood Potassium (3.4-4.5) mmol/L Crossmatch 07/27/17 07/27/17 07/27/17 Range/Units 16:08 17:14 17:58 WBC (3.8-10.6) k/uL RBC (3.80-5.40) m/uL Hgb (11.4-16.0) gm/dL Hct (34.0-46.0) % Plt Count (150-450) k/uL Neutrophils # (1.3-7.7) k/uL Lymphocytes # (1.0-4.8) k/uL PT (9.0-12.0) sec INR (<1.2) APTT (22.0-30.0) sec ABG pH (7.35-7.45) ABG pCO2 (35-45) mmHg ABG pO2 (83-108) mmHg ABG HCO3 (21-25) mmol/L ABG Total CO2 (19-24) mmol/L ABG O2 Saturation (94-97) % ABG Hematocrit (34.0-46.0) % ABG Potassium (3.4-4.5) mmol/L Chloride (98-107) mmol/L Carbon Dioxide (22-30) mmol/L BUN (7-17) mg/dL Creatinine (0.52-1.04) mg/dL Glucose (74-99) mg/dL POC Glucose (mg/dL) 103 H 126 H 149 H (75-99) mg/dL Calcium (8.4-10.2) mg/dL Total Bilirubin (0.2-1.3) mg/dL Total Protein (6.3-8.2) g/dL Arterial Blood Potassium (3.4-4.5) mmol/L Crossmatch 07/27/17 07/27/17 07/27/17 Range/Units 18:00 19:01 19:55 WBC (3.8-10.6) k/uL RBC 2.40 L (3.80-5.40) m/uL Hgb 7.4 L (11.4-16.0) gm/dL Hct 22.8 L (34.0-46.0) % Plt Count 130 L (150-450) k/uL Neutrophils # (1.3-7.7) k/uL Lymphocytes # (1.0-4.8) k/uL PT (9.0-12.0) sec INR (<1.2) APTT (22.0-30.0) sec ABG pH (7.35-7.45) ABG pCO2 (35-45) mmHg ABG pO2 (83-108) mmHg ABG HCO3 (21-25) mmol/L ABG Total CO2 (19-24) mmol/L ABG O2 Saturation (94-97) % ABG Hematocrit (34.0-46.0) % ABG Potassium (3.4-4.5) mmol/L Chloride 108 H (98-107) mmol/L Carbon Dioxide 21 L (22-30) mmol/L BUN 21 H (7-17) mg/dL Creatinine 3.89 H (0.52-1.04) mg/dL Glucose 120 H (74-99) mg/dL POC Glucose (mg/dL) 147 H (75-99) mg/dL Calcium 8.2 L (8.4-10.2) mg/dL Total Bilirubin (0.2-1.3) mg/dL Total Protein (6.3-8.2) g/dL Arterial Blood Potassium (3.4-4.5) mmol/L Crossmatch 07/27/17 07/27/17 07/27/17 Range/Units 19:55 19:57 20:58 WBC (3.8-10.6) k/uL RBC 2.45 L (3.80-5.40) m/uL Hgb 7.7 L (11.4-16.0) gm/dL Hct 23.3 L (34.0-46.0) % Plt Count 140 L (150-450) k/uL Neutrophils # (1.3-7.7) k/uL Lymphocytes # 0.7 L (1.0-4.8) k/uL PT (9.0-12.0) sec INR (<1.2) APTT (22.0-30.0) sec ABG pH (7.35-7.45) ABG pCO2 (35-45) mmHg ABG pO2 (83-108) mmHg ABG HCO3 (21-25) mmol/L ABG Total CO2 (19-24) mmol/L ABG O2 Saturation (94-97) % ABG Hematocrit (34.0-46.0) % ABG Potassium (3.4-4.5) mmol/L Chloride (98-107) mmol/L Carbon Dioxide (22-30) mmol/L BUN (7-17) mg/dL Creatinine (0.52-1.04) mg/dL Glucose (74-99) mg/dL POC Glucose (mg/dL) 136 H 118 H (75-99) mg/dL Calcium (8.4-10.2) mg/dL Total Bilirubin (0.2-1.3) mg/dL Total Protein (6.3-8.2) g/dL Arterial Blood Potassium (3.4-4.5) mmol/L Crossmatch 07/27/17 07/27/17 07/27/17 Range/Units 22:03 23:00 23:35 WBC (3.8-10.6) k/uL RBC (3.80-5.40) m/uL Hgb (11.4-16.0) gm/dL Hct (34.0-46.0) % Plt Count (150-450) k/uL Neutrophils # (1.3-7.7) k/uL Lymphocytes # (1.0-4.8) k/uL PT (9.0-12.0) sec INR (<1.2) APTT (22.0-30.0) sec ABG pH 7.32 L (7.35-7.45) ABG pCO2 (35-45) mmHg ABG pO2 (83-108) mmHg ABG HCO3 (21-25) mmol/L ABG Total CO2 (19-24) mmol/L ABG O2 Saturation (94-97) % ABG Hematocrit (34.0-46.0) % ABG Potassium (3.4-4.5) mmol/L Chloride (98-107) mmol/L Carbon Dioxide (22-30) mmol/L BUN (7-17) mg/dL Creatinine (0.52-1.04) mg/dL Glucose (74-99) mg/dL POC Glucose (mg/dL) 131 H 120 H (75-99) mg/dL Calcium (8.4-10.2) mg/dL Total Bilirubin (0.2-1.3) mg/dL Total Protein (6.3-8.2) g/dL Arterial Blood Potassium (3.4-4.5) mmol/L Crossmatch 07/28/17 07/28/17 07/28/17 Range/Units 00:03 01:06 02:01 WBC (3.8-10.6) k/uL RBC (3.80-5.40) m/uL Hgb (11.4-16.0) gm/dL Hct (34.0-46.0) % Plt Count (150-450) k/uL Neutrophils # (1.3-7.7) k/uL Lymphocytes # (1.0-4.8) k/uL PT (9.0-12.0) sec INR (<1.2) APTT (22.0-30.0) sec ABG pH (7.35-7.45) ABG pCO2 (35-45) mmHg ABG pO2 (83-108) mmHg ABG HCO3 (21-25) mmol/L ABG Total CO2 (19-24) mmol/L ABG O2 Saturation (94-97) % ABG Hematocrit (34.0-46.0) % ABG Potassium (3.4-4.5) mmol/L Chloride (98-107) mmol/L Carbon Dioxide (22-30) mmol/L BUN (7-17) mg/dL Creatinine (0.52-1.04) mg/dL Glucose (74-99) mg/dL POC Glucose (mg/dL) 119 H 127 H 137 H (75-99) mg/dL Calcium (8.4-10.2) mg/dL Total Bilirubin (0.2-1.3) mg/dL Total Protein (6.3-8.2) g/dL Arterial Blood Potassium (3.4-4.5) mmol/L Crossmatch 07/28/17 07/28/17 07/28/17 Range/Units 03:02 03:59 04:00 WBC 10.9 H (3.8-10.6) k/uL RBC 2.67 L (3.80-5.40) m/uL Hgb 8.1 L (11.4-16.0) gm/dL Hct 25.9 L (34.0-46.0) % Plt Count 135 L (150-450) k/uL Neutrophils # 9.7 H (1.3-7.7) k/uL Lymphocytes # 0.6 L (1.0-4.8) k/uL PT (9.0-12.0) sec INR (<1.2) APTT (22.0-30.0) sec ABG pH (7.35-7.45) ABG pCO2 (35-45) mmHg ABG pO2 (83-108) mmHg ABG HCO3 (21-25) mmol/L ABG Total CO2 (19-24) mmol/L ABG O2 Saturation (94-97) % ABG Hematocrit (34.0-46.0) % ABG Potassium (3.4-4.5) mmol/L Chloride (98-107) mmol/L Carbon Dioxide (22-30) mmol/L BUN (7-17) mg/dL Creatinine (0.52-1.04) mg/dL Glucose (74-99) mg/dL POC Glucose (mg/dL) 149 H 166 H (75-99) mg/dL Calcium (8.4-10.2) mg/dL Total Bilirubin (0.2-1.3) mg/dL Total Protein (6.3-8.2) g/dL Arterial Blood Potassium (3.4-4.5) mmol/L Crossmatch 07/28/17 07/28/17 07/28/17 Range/Units 04:00 04:00 04:57 WBC (3.8-10.6) k/uL RBC (3.80-5.40) m/uL Hgb (11.4-16.0) gm/dL Hct (34.0-46.0) % Plt Count (150-450) k/uL Neutrophils # (1.3-7.7) k/uL Lymphocytes # (1.0-4.8) k/uL PT 12.2 H (9.0-12.0) sec INR 1.2 H (<1.2) APTT (22.0-30.0) sec ABG pH (7.35-7.45) ABG pCO2 (35-45) mmHg ABG pO2 (83-108) mmHg ABG HCO3 (21-25) mmol/L ABG Total CO2 (19-24) mmol/L ABG O2 Saturation (94-97) % ABG Hematocrit (34.0-46.0) % ABG Potassium (3.4-4.5) mmol/L Chloride (98-107) mmol/L Carbon Dioxide 21 L (22-30) mmol/L BUN 22 H (7-17) mg/dL Creatinine 4.65 H (0.52-1.04) mg/dL Glucose 151 H (74-99) mg/dL POC Glucose (mg/dL) 157 H (75-99) mg/dL Calcium (8.4-10.2) mg/dL Total Bilirubin 0.1 L (0.2-1.3) mg/dL Total Protein 5.4 L (6.3-8.2) g/dL Arterial Blood Potassium (3.4-4.5) mmol/L Crossmatch 07/28/17 07/28/17 07/28/17 Range/Units 06:42 07:55 08:55 WBC (3.8-10.6) k/uL RBC (3.80-5.40) m/uL Hgb (11.4-16.0) gm/dL Hct (34.0-46.0) % Plt Count (150-450) k/uL Neutrophils # (1.3-7.7) k/uL Lymphocytes # (1.0-4.8) k/uL PT (9.0-12.0) sec INR (<1.2) APTT (22.0-30.0) sec ABG pH (7.35-7.45) ABG pCO2 (35-45) mmHg ABG pO2 (83-108) mmHg ABG HCO3 (21-25) mmol/L ABG Total CO2 (19-24) mmol/L ABG O2 Saturation (94-97) % ABG Hematocrit (34.0-46.0) % ABG Potassium (3.4-4.5) mmol/L Chloride (98-107) mmol/L Carbon Dioxide (22-30) mmol/L BUN (7-17) mg/dL Creatinine (0.52-1.04) mg/dL Glucose (74-99) mg/dL POC Glucose (mg/dL) 140 H 141 H 117 H (75-99) mg/dL Calcium (8.4-10.2) mg/dL Total Bilirubin (0.2-1.3) mg/dL Total Protein (6.3-8.2) g/dL Arterial Blood Potassium (3.4-4.5) mmol/L Crossmatch - Imaging and Cardiology Chest x-ray: report reviewed, image reviewed Assessment and Plan (1) History of myocardial infarction in adulthood Status: Acute (2) Anemia of chronic disease Status: Acute (3) Congestive heart failure Status: Acute (4) Coronary artery disease Status: Acute (5) Diabetes Status: Acute (6) ESRD (end stage renal disease) Status: Acute (7) Hyperlipemia Status: Acute (8) Left carotid bruit Status: Acute Plan: 1. Continue aspirin, statin, beta tone. Will maximize beta tone therapy as tolerated. 2. Encourage incentive spirometer use every hour while awake. 3. We will discontinue her [place]-Brenda catheter and Cordis. 4. We will discontinue her [place] catheter. 5. GI/DVT prophylaxis. 6. Insulin management per primary care service. 7. Will monitor daily labs and chest x-rays. 8. We will discontinue her chest tubes post hemodialysis. 9. Further recommendations as patient progresses. Time with Patient: Greater than 30
[2017-07-28 10:17] LABS: Glucose,Whole Blood 140 mg/dL (75-99)
[2017-07-28] MEDS ORDERED: MECLIZINE 25 MG TAB PO PRN (10:45)
--- NOTE | 2017-07-28 11:03 | P.CONS ---
History of Present Illness - Reason for Consult Consult date: 07/28/17 Medical Management - Chief Complaint S/P CABG - History of Present Illness 72-year-old female who was admitted to the hospital on 07/27/2017 for coronary artery bypass graft surgery. Dr. Malone was consulted for medical management. The patient had a recent admission to the hospital from 07/05/2017 through 07/18. The patient originally presented to the emergency room with chest heaviness and shortness of breath at that time. The patient was admitted with a non-ST elevated ME. A cardiac catheterization was performed which showed triple-vessel disease. Cardiothoracic surgery was consulted and the patient agreed to undergo a CABG. She was discharged home and then presented to the hospital on 07/27/2017 for her scheduled CABG. The patient has a history of diabetes mellitus, and STEMI, coronary artery disease, chronic renal disease stage IV. She goes to dialysis 3 times a week ( Monday, , Monday). The patient has a left arm fistula. The patient underwent coronary artery bypass grafting x3 vessels, off pump, with BARROS to the LAD, a reverse greater saphenous vein graft to the obtuse marginal coronary artery and the posterior descending coronary artery. The patient had endovascular vein harvest of her left greater saphenous vein, intraoperative epi-aortic ultrasound, and YUE performed by anesthesia. The patient is seen sitting up in bed on rounds with morning with Dr. Malone. She has been extubated and currently on 2L nasal cannula. She is awake and alert and communicating well. She does not appear in any acute distress. She is having pain at her chest tube sites. She has been afebrile. Last temperature is 97.0F. Her blood pressure is stable, however she does have decrease diastolic pressures via her a-line. Last reading was 124/34. Her non-invasive cuff pressure reading is 111/53. Last recorded pulmonary artery pressure is 22/ 10. She is currently receiving hemodiaylsis. Review of Systems GENERAL: Patient denies fever, chills, weight gain, or weight loss. Complains of pain RESPIRATORY: Denies dyspnea, cough, sputum production, or hemoptysis. CARDIOVASCULAR: Denies chest pain, pressure, palpitations, claudication, or arrhythmias. GI: Denies abdominal pain, diarrhea, incontinence, heartburn, nausea, constipation, or blood in the stool. : Denies urinary frequency, burning, dysuria, or cloudy urine. Denies blood in the urine. MUSCULOSKELETAL: Denies pain or tenderness. Denies cramps, swelling, or decreased range of motion. Past Medical History Past Medical History: Coronary Artery Disease (CAD), Chest Pain / Angina, Diabetes Mellitus, Dialysis, Hyperlipidemia, Hypertension, Myocardial Infarction (ME), Renal Disease Additional Past Medical History / Comment(s): End-stage renal disease with hemodialysis 3 times a week usually has on . , sat.-left arm AV fistula , Non-STEMI 03/14/16, peripheral neuropathy bilateral feet cataracts bilaterally , frequent UTI'S, stress incontinence. Last Myocardial Infarction Date:: 07/15/2017 History of Any Multi-Drug Resistant Organisms: None Reported Past Surgical History: Appendectomy, Cholecystectomy, Heart Catheterization, Heart Catheterization With Stent, Tonsillectomy Additional Past Surgical History / Comment(s): 03/15/16 PTCA with stent to mid LAD,06-07-16 HEART CATH STENT TO PROX RCA. Restented mid LAD 11/20/16 A/V fistula with revision L upper arm, history of Lasix eye surgery and cataract removal. Past Anesthesia/Blood Transfusion Reactions: No Reported Reaction Date of Last Stent Placement:: 11/21/2016 Smoking Status: Former smoker - Past Family History Father Family Medical History: Diabetes Mellitus Additional Family Medical History / Comment(s): Father of diabetic complications in his 40's Mother Family Medical History: Cancer, Myocardial Infarction (ME) Additional Family Medical History / Comment(s): Cancer unknown type. Mother of a ME in her early 50's Brother(s) Family Medical History: Cancer Additional Family Medical History / Comment(s): Her brother from lung cancer and cirrhosis of the liver. Medications and Allergies Home Medications Medication Instructions Recorded Confirmed Type Folic Acid-Vit B Complex-Vit C 1 cap PO DAILY 06/06/16 07/27/17 History [Nephrocaps] Citalopram Hydrobromide [CeleXA] 20 mg PO DAILY 08/05/16 07/27/17 History Isosorbide Mononitrate ER [Imdur] 30 mg PO DAILY 11/19/16 07/27/17 History Atorvastatin [Lipitor] 80 mg PO HS #30 tab 11/22/16 07/27/17 Rx Clopidogrel [Plavix] 75 mg PO DAILY #30 tab 11/22/16 07/27/17 Rx Nitroglycerin Sl Tabs [Nitrostat] 0.4 mg SUBLINGUAL Q5M PRN #25 tab 11/22/1606/05 Rx Furosemide [Lasix] 40 mg PO DAILY 04/21/17 07/27/17 History Meclizine [Antivert] 25 mg PO BID PRN 04/21/17 07/27/17 History Insulin Glargine,Hum.rec.anlog 40 unit SQ QAM 06/03/17 07/27/17 History [Lantus Solostar] Ondansetron Odt [Zofran ODT] 4 mg PO Q8HR PRN #10 tab 06/24/17 07/27/17 Rx Calcium Acetate [PhosLo] 1,334 mg PO AC-TID cap 07/18/17 07/27/17 Rx Carvedilol [Coreg*] 25 mg PO BID-W/MEALS tab 07/18/17 07/27/17 Rx Cholecalciferol [Vitamin D3] 1,000 unit PO DAILY tab 07/18/17 07/27/17 Rx Cyanocobalamin [Vitamin B-12] 1,000 mcg PO DAILY tab 07/18/17 07/27/17 Rx Ferrous Sulfate [Iron (65 MG 325 mg PO BID-W/MEALS tab 07/18/17 07/27/17 Rx Elemental)] Aspirin 325 mg PO DAILY 07/21/17 07/27/17 History Allergies Allergy/AdvReac Type Severity Reaction Status Date / Time glyburide [From Diabeta] Allergy Rash/Hives Verified 07/27/17 06:03 Physical Exam Vitals: Vital Signs Temp Pulse Pulse Resp BP Pulse Ox 07/28/17 08:00 97 F L 80 12 111/53 97 07/28/17 07:00 69 98 07/28/17 06:00 69 100/47 96 07/28/17 05:00 71 105/47 96 07/28/17 04:00 97 F L 76 99/54 96 07/28/17 03:50 12 07/28/17 03:00 76 101/44 94 L 07/28/17 02:00 97.0 F L 76 95 07/28/17 01:00 74 96 07/28/17 00:00 97.3 F L 77 96 07/27/17 23:00 87 96 07/27/17 22:00 97.9 F 90 96 07/27/17 21:19 87 97 07/27/17 21:00 98.2 F 81 12 97 07/27/17 20:07 79 07/27/17 20:00 78 71 16 100 07/27/17 19:40 79 07/27/17 19:00 76 95 07/27/17 18:45 77 95 07/27/17 18:30 80 96 07/27/17 18:15 81 96 07/27/17 18:00 76 94 L 07/27/17 17:45 76 100 07/27/17 17:30 88 99 07/27/17 17:15 88 100 07/27/17 17:00 89 99 07/27/17 16:45 91 99 07/27/17 16:30 93 99 07/27/17 16:15 63 94 L 07/27/17 16:00 60 83 L 07/27/17 15:52 68 07/27/17 15:45 67 100 07/27/17 15:40 68 07/27/17 15:30 65 100 07/27/17 15:15 60 99 07/27/17 15:00 64 99 07/27/17 14:45 54 L 07/27/17 14:30 60 100 07/27/17 14:15 57 L 96 07/27/17 14:12 60 98 Intake and Output 07/27/17 07/28/17 07/28/17 22:59 06:59 14:59 Intake Total 1141.771 4.03 29.76 Output Total 295 117 20 Balance 846.771 -112.97 9.76 Intake: Intake, IV Titration 1141.771 4.03 29.76 Amount ACETAMINOPHEN IV (For NPO 100 ) 1,000 mg In Empty Bag 1 bag @ 400 mls/hr IVPB Q6HR JONH Rx#:[id number] Albumin Human 5% 250 ml 500 In Empty Bag 1 bag @ 250 mls/hr IVPB Q1HR PRN Rx#: [id number] DOPamine DRIP 800 mg In 11.11 Dextrose/Water 1 500ml. bag @ 2 MCG/KG/MIN 6.23 mls/hr IV .Q24H JONH Rx#: [id number] Insulin Regular 100 unit 2.995 4.03 9.01 In Sodium Chloride 0.9% 100 ml @ Per Protocol IV .Q0M JONH Rx#:[id number] Lactated Ringers 1,000 ml 180 @ 50 mls/hr IV .Q20H JONH Rx#:[id number] Nitroglycerin-D5w Pmx 50 20.75 mg In Dextrose/Water 1 250ml.bag @ 5 MCG/MIN 1.5 mls/hr IV .Q24H JONH Rx#: [id number] Potassium Chloride 10 meq 200 Lidocaine 2% Inj 10 mg In Sodium Chloride 0.9% 100 ml @ 100 mls/hr IV Q1HR JONH Rx#:[id number] Propofol 1,000 mg In 100 47.666 ml @ Titrate IV .Q0M JONH Rx#:[id number] ceFAZolin 2 gm In Sodium 100 Chloride 0.9% 100 ml @ 100 mls/hr IVPB Q8HR JONH Rx#:[id number] Output: Chest Tube Drainage 235 107 20 Left Pleural/Mediastinal 60 17 0 Mediastinal 175 90 20 Urine 60 10 Other: Voiding Method Indwelling Catheter Indwelling Catheter Indwelling Catheter Weight 88.8 kg 88.8 kg Patient Weight 07/29/17 06:59 Weight 88.8 kg ABP, PAP, CO, CI - Last 8 Hours Arterial Blood Pressure 124/34 Arterial Blood Pressure 103/32 Arterial Blood Pressure 107/35 Arterial Blood Pressure 116/38 Arterial Blood Pressure 127/50 Arterial Blood Pressure 120/44 Arterial Blood Pressure 97/47 Pulmonary Artery Pressure 22/10 Pulmonary Artery Pressure 23/12 Pulmonary Artery Pressure 28/18 Pulmonary Artery Pressure 31/21 Pulmonary Artery Pressure 40/26 Pulmonary Artery Pressure 40/26 Pulmonary Artery Pressure 39/24 Cardiac Output 4.3 Cardiac Output 4.3 Cardiac Output 4.3 Cardiac Output 4 Cardiac Output 4 Cardiac Output 5.2 Cardiac Output 5.2 Cardiac Index 2.3 Cardiac Index 2.2 GENERAL: Alert and oriented. Appears in no acute distress. Pleasant. [place]- Brenda catheter present. Patient with chest splinting device/heart hugger in place. RESPIRATORY: Lungs clear bilaterally. No use of accessory muscles. Patient maintaining oxygen saturation greater than 92% on 2 L nasal cannula. CARDIOVASCULAR: classroom monitor: sinus rhythm. S1 and S2 noted. No murmurs auscultated. No JVD noted. EXTREMITIES: No edema noted. Palpable pedal pulses +2. AV Fistula to left arm noted. : [place] intact with clear yellow urine. ABDOMEN: No distention noted. Abdomen soft and round. Normal active bowel sounds auscultated 4 quadrants. No pain or tenderness noted upon palpation. Results CBC & Chem 7: 07/28/17 04:00 07/28/17 04:00 Labs: Abnormal Lab Results - Last 24 Hours (Table) 07/21/17 07/27/17 07/27/17 Range/Units 13:00 08:41 10:16 WBC (3.8-10.6) k/uL RBC (3.80-5.40) m/uL Hgb (11.4-16.0) gm/dL Hct (34.0-46.0) % Plt Count (150-450) k/uL Neutrophils # (1.3-7.7) k/uL Lymphocytes # (1.0-4.8) k/uL PT (9.0-12.0) sec INR (<1.2) APTT (22.0-30.0) sec ABG pH 7.59 H (7.35-7.45) ABG pCO2 27 L (35-45) mmHg ABG pO2 277 H (83-108) mmHg ABG HCO3 26 H (21-25) mmol/L ABG Total CO2 27 H (19-24) mmol/L ABG O2 Saturation 99.9 H (94-97) % ABG Hematocrit 29 L (34.0-46.0) % ABG Potassium (3.4-4.5) mmol/L Chloride (98-107) mmol/L Carbon Dioxide (22-30) mmol/L BUN (7-17) mg/dL Creatinine (0.52-1.04) mg/dL Glucose (74-99) mg/dL POC Glucose (mg/dL) 166 H (75-99) mg/dL Calcium (8.4-10.2) mg/dL Total Bilirubin (0.2-1.3) mg/dL Total Protein (6.3-8.2) g/dL Arterial Blood Potassium (3.4-4.5) mmol/L Crossmatch See Detail 07/27/17 07/27/17 07/27/17 Range/Units 10:17 10:48 10:48 WBC (3.8-10.6) k/uL RBC (3.80-5.40) m/uL Hgb (11.4-16.0) gm/dL Hct (34.0-46.0) % Plt Count (150-450) k/uL Neutrophils # (1.3-7.7) k/uL Lymphocytes # (1.0-4.8) k/uL PT (9.0-12.0) sec INR (<1.2) APTT (22.0-30.0) sec ABG pH 7.54 H 7.55 H (7.35-7.45) ABG pCO2 30 L 28 L (35-45) mmHg ABG pO2 328 H 292 H (83-108) mmHg ABG HCO3 (21-25) mmol/L ABG Total CO2 26 H 25 H (19-24) mmol/L ABG O2 Saturation 100.0 H 99.9 H (94-97) % ABG Hematocrit 28 L 26 L (34.0-46.0) % ABG Potassium (3.4-4.5) mmol/L Chloride (98-107) mmol/L Carbon Dioxide (22-30) mmol/L BUN (7-17) mg/dL Creatinine (0.52-1.04) mg/dL Glucose (74-99) mg/dL POC Glucose (mg/dL) 175 H (75-99) mg/dL Calcium (8.4-10.2) mg/dL Total Bilirubin (0.2-1.3) mg/dL Total Protein (6.3-8.2) g/dL Arterial Blood Potassium (3.4-4.5) mmol/L Crossmatch 07/27/17 07/27/17 07/27/17 Range/Units 10:56 11:33 11:33 WBC (3.8-10.6) k/uL RBC (3.80-5.40) m/uL Hgb (11.4-16.0) gm/dL Hct (34.0-46.0) % Plt Count (150-450) k/uL Neutrophils # (1.3-7.7) k/uL Lymphocytes # (1.0-4.8) k/uL PT (9.0-12.0) sec INR (<1.2) APTT (22.0-30.0) sec ABG pH 7.50 H (7.35-7.45) ABG pCO2 31 L (35-45) mmHg ABG pO2 309 H (83-108) mmHg ABG HCO3 (21-25) mmol/L ABG Total CO2 25 H (19-24) mmol/L ABG O2 Saturation 99.9 H (94-97) % ABG Hematocrit 26 L (34.0-46.0) % ABG Potassium 3.3 L (3.4-4.5) mmol/L Chloride (98-107) mmol/L Carbon Dioxide (22-30) mmol/L BUN (7-17) mg/dL Creatinine (0.52-1.04) mg/dL Glucose (74-99) mg/dL POC Glucose (mg/dL) 108 H 148 H (75-99) mg/dL Calcium (8.4-10.2) mg/dL Total Bilirubin (0.2-1.3) mg/dL Total Protein (6.3-8.2) g/dL Arterial Blood Potassium 3.3 L (3.4-4.5) mmol/L Crossmatch 07/27/17 07/27/17 07/27/17 Range/Units 12:17 12:18 12:42 WBC (3.8-10.6) k/uL RBC (3.80-5.40) m/uL Hgb (11.4-16.0) gm/dL Hct (34.0-46.0) % Plt Count (150-450) k/uL Neutrophils # (1.3-7.7) k/uL Lymphocytes # (1.0-4.8) k/uL PT (9.0-12.0) sec INR (<1.2) APTT (22.0-30.0) sec ABG pH 7.50 H (7.35-7.45) ABG pCO2 30 L (35-45) mmHg ABG pO2 303 H (83-108) mmHg ABG HCO3 (21-25) mmol/L ABG Total CO2 25 H (19-24) mmol/L ABG O2 Saturation 99.9 H (94-97) % ABG Hematocrit 23 L (34.0-46.0) % ABG Potassium (3.4-4.5) mmol/L Chloride (98-107) mmol/L Carbon Dioxide (22-30) mmol/L BUN (7-17) mg/dL Creatinine (0.52-1.04) mg/dL Glucose (74-99) mg/dL POC Glucose (mg/dL) 139 H 120 H (75-99) mg/dL Calcium (8.4-10.2) mg/dL Total Bilirubin (0.2-1.3) mg/dL Total Protein (6.3-8.2) g/dL Arterial Blood Potassium (3.4-4.5) mmol/L Crossmatch 07/27/17 07/27/17 07/27/17 Range/Units 12:42 14:00 14:00 WBC 10.9 H (3.8-10.6) k/uL RBC 2.40 L (3.80-5.40) m/uL Hgb 7.6 L D (11.4-16.0) gm/dL Hct 23.0 L (34.0-46.0) % Plt Count 141 L (150-450) k/uL Neutrophils # 8.6 H (1.3-7.7) k/uL Lymphocytes # (1.0-4.8) k/uL PT (9.0-12.0) sec INR (<1.2) APTT (22.0-30.0) sec ABG pH 7.46 H (7.35-7.45) ABG pCO2 33 L (35-45) mmHg ABG pO2 286 H (83-108) mmHg ABG HCO3 (21-25) mmol/L ABG Total CO2 (19-24) mmol/L ABG O2 Saturation 99.9 H (94-97) % ABG Hematocrit 24 L (34.0-46.0) % ABG Potassium 3.2 L (3.4-4.5) mmol/L Chloride (98-107) mmol/L Carbon Dioxide (22-30) mmol/L BUN 19 H (7-17) mg/dL Creatinine 3.66 H (0.52-1.04) mg/dL Glucose (74-99) mg/dL POC Glucose (mg/dL) (75-99) mg/dL Calcium 7.9 L (8.4-10.2) mg/dL Total Bilirubin (0.2-1.3) mg/dL Total Protein 5.1 L (6.3-8.2) g/dL Arterial Blood Potassium 3.2 L (3.4-4.5) mmol/L Crossmatch 07/27/17 07/27/17 07/27/17 Range/Units 14:00 14:20 15:11 WBC (3.8-10.6) k/uL RBC (3.80-5.40) m/uL Hgb (11.4-16.0) gm/dL Hct (34.0-46.0) % Plt Count (150-450) k/uL Neutrophils # (1.3-7.7) k/uL Lymphocytes # (1.0-4.8) k/uL PT 13.1 H (9.0-12.0) sec INR 1.3 H (<1.2) APTT 30.5 H (22.0-30.0) sec ABG pH (7.35-7.45) ABG pCO2 (35-45) mmHg ABG pO2 >420 H (83-108) mmHg ABG HCO3 (21-25) mmol/L ABG Total CO2 (19-24) mmol/L ABG O2 Saturation 100.0 H (94-97) % ABG Hematocrit (34.0-46.0) % ABG Potassium (3.4-4.5) mmol/L Chloride (98-107) mmol/L Carbon Dioxide (22-30) mmol/L BUN (7-17) mg/dL Creatinine (0.52-1.04) mg/dL Glucose (74-99) mg/dL POC Glucose (mg/dL) 126 H (75-99) mg/dL Calcium (8.4-10.2) mg/dL Total Bilirubin (0.2-1.3) mg/dL Total Protein (6.3-8.2) g/dL Arterial Blood Potassium (3.4-4.5) mmol/L Crossmatch 07/27/17 07/27/17 07/27/17 Range/Units 16:08 17:14 17:58 WBC (3.8-10.6) k/uL RBC (3.80-5.40) m/uL Hgb (11.4-16.0) gm/dL Hct (34.0-46.0) % Plt Count (150-450) k/uL Neutrophils # (1.3-7.7) k/uL Lymphocytes # (1.0-4.8) k/uL PT (9.0-12.0) sec INR (<1.2) APTT (22.0-30.0) sec ABG pH (7.35-7.45) ABG pCO2 (35-45) mmHg ABG pO2 (83-108) mmHg ABG HCO3 (21-25) mmol/L ABG Total CO2 (19-24) mmol/L ABG O2 Saturation (94-97) % ABG Hematocrit (34.0-46.0) % ABG Potassium (3.4-4.5) mmol/L Chloride (98-107) mmol/L Carbon Dioxide (22-30) mmol/L BUN (7-17) mg/dL Creatinine (0.52-1.04) mg/dL Glucose (74-99) mg/dL POC Glucose (mg/dL) 103 H 126 H 149 H (75-99) mg/dL Calcium (8.4-10.2) mg/dL Total Bilirubin (0.2-1.3) mg/dL Total Protein (6.3-8.2) g/dL Arterial Blood Potassium (3.4-4.5) mmol/L Crossmatch 07/27/17 07/27/17 07/27/17 Range/Units 18:00 19:01 19:55 WBC (3.8-10.6) k/uL RBC 2.40 L (3.80-5.40) m/uL Hgb 7.4 L (11.4-16.0) gm/dL Hct 22.8 L (34.0-46.0) % Plt Count 130 L (150-450) k/uL Neutrophils # (1.3-7.7) k/uL Lymphocytes # (1.0-4.8) k/uL PT (9.0-12.0) sec INR (<1.2) APTT (22.0-30.0) sec ABG pH (7.35-7.45) ABG pCO2 (35-45) mmHg ABG pO2 (83-108) mmHg ABG HCO3 (21-25) mmol/L ABG Total CO2 (19-24) mmol/L ABG O2 Saturation (94-97) % ABG Hematocrit (34.0-46.0) % ABG Potassium (3.4-4.5) mmol/L Chloride 108 H (98-107) mmol/L Carbon Dioxide 21 L (22-30) mmol/L BUN 21 H (7-17) mg/dL Creatinine 3.89 H (0.52-1.04) mg/dL Glucose 120 H (74-99) mg/dL POC Glucose (mg/dL) 147 H (75-99) mg/dL Calcium 8.2 L (8.4-10.2) mg/dL Total Bilirubin (0.2-1.3) mg/dL Total Protein (6.3-8.2) g/dL Arterial Blood Potassium (3.4-4.5) mmol/L Crossmatch 07/27/17 07/27/17 07/27/17 Range/Units 19:55 19:57 20:58 WBC (3.8-10.6) k/uL RBC 2.45 L (3.80-5.40) m/uL Hgb 7.7 L (11.4-16.0) gm/dL Hct 23.3 L (34.0-46.0) % Plt Count 140 L (150-450) k/uL Neutrophils # (1.3-7.7) k/uL Lymphocytes # 0.7 L (1.0-4.8) k/uL PT (9.0-12.0) sec INR (<1.2) APTT (22.0-30.0) sec ABG pH (7.35-7.45) ABG pCO2 (35-45) mmHg ABG pO2 (83-108) mmHg ABG HCO3 (21-25) mmol/L ABG Total CO2 (19-24) mmol/L ABG O2 Saturation (94-97) % ABG Hematocrit (34.0-46.0) % ABG Potassium (3.4-4.5) mmol/L Chloride (98-107) mmol/L Carbon Dioxide (22-30) mmol/L BUN (7-17) mg/dL Creatinine (0.52-1.04) mg/dL Glucose (74-99) mg/dL POC Glucose (mg/dL) 136 H 118 H (75-99) mg/dL Calcium (8.4-10.2) mg/dL Total Bilirubin (0.2-1.3) mg/dL Total Protein (6.3-8.2) g/dL Arterial Blood Potassium (3.4-4.5) mmol/L Crossmatch 07/27/17 07/27/17 07/27/17 Range/Units 22:03 23:00 23:35 WBC (3.8-10.6) k/uL RBC (3.80-5.40) m/uL Hgb (11.4-16.0) gm/dL Hct (34.0-46.0) % Plt Count (150-450) k/uL Neutrophils # (1.3-7.7) k/uL Lymphocytes # (1.0-4.8) k/uL PT (9.0-12.0) sec INR (<1.2) APTT (22.0-30.0) sec ABG pH 7.32 L (7.35-7.45) ABG pCO2 (35-45) mmHg ABG pO2 (83-108) mmHg ABG HCO3 (21-25) mmol/L ABG Total CO2 (19-24) mmol/L ABG O2 Saturation (94-97) % ABG Hematocrit (34.0-46.0) % ABG Potassium (3.4-4.5) mmol/L Chloride (98-107) mmol/L Carbon Dioxide (22-30) mmol/L BUN (7-17) mg/dL Creatinine (0.52-1.04) mg/dL Glucose (74-99) mg/dL POC Glucose (mg/dL) 131 H 120 H (75-99) mg/dL Calcium (8.4-10.2) mg/dL Total Bilirubin (0.2-1.3) mg/dL Total Protein (6.3-8.2) g/dL Arterial Blood Potassium (3.4-4.5) mmol/L Crossmatch 07/28/17 07/28/17 07/28/17 Range/Units 00:03 01:06 02:01 WBC (3.8-10.6) k/uL RBC (3.80-5.40) m/uL Hgb (11.4-16.0) gm/dL Hct (34.0-46.0) % Plt Count (150-450) k/uL Neutrophils # (1.3-7.7) k/uL Lymphocytes # (1.0-4.8) k/uL PT (9.0-12.0) sec INR (<1.2) APTT (22.0-30.0) sec ABG pH (7.35-7.45) ABG pCO2 (35-45) mmHg ABG pO2 (83-108) mmHg ABG HCO3 (21-25) mmol/L ABG Total CO2 (19-24) mmol/L ABG O2 Saturation (94-97) % ABG Hematocrit (34.0-46.0) % ABG Potassium (3.4-4.5) mmol/L Chloride (98-107) mmol/L Carbon Dioxide (22-30) mmol/L BUN (7-17) mg/dL Creatinine (0.52-1.04) mg/dL Glucose (74-99) mg/dL POC Glucose (mg/dL) 119 H 127 H 137 H (75-99) mg/dL Calcium (8.4-10.2) mg/dL Total Bilirubin (0.2-1.3) mg/dL Total Protein (6.3-8.2) g/dL Arterial Blood Potassium (3.4-4.5) mmol/L Crossmatch 07/28/17 07/28/17 07/28/17 Range/Units 03:02 03:59 04:00 WBC 10.9 H (3.8-10.6) k/uL RBC 2.67 L (3.80-5.40) m/uL Hgb 8.1 L (11.4-16.0) gm/dL Hct 25.9 L (34.0-46.0) % Plt Count 135 L (150-450) k/uL Neutrophils # 9.7 H (1.3-7.7) k/uL Lymphocytes # 0.6 L (1.0-4.8) k/uL PT (9.0-12.0) sec INR (<1.2) APTT (22.0-30.0) sec ABG pH (7.35-7.45) ABG pCO2 (35-45) mmHg ABG pO2 (83-108) mmHg ABG HCO3 (21-25) mmol/L ABG Total CO2 (19-24) mmol/L ABG O2 Saturation (94-97) % ABG Hematocrit (34.0-46.0) % ABG Potassium (3.4-4.5) mmol/L Chloride (98-107) mmol/L Carbon Dioxide (22-30) mmol/L BUN (7-17) mg/dL Creatinine (0.52-1.04) mg/dL Glucose (74-99) mg/dL POC Glucose (mg/dL) 149 H 166 H (75-99) mg/dL Calcium (8.4-10.2) mg/dL Total Bilirubin (0.2-1.3) mg/dL Total Protein (6.3-8.2) g/dL Arterial Blood Potassium (3.4-4.5) mmol/L Crossmatch 07/28/17 07/28/17 07/28/17 Range/Units 04:00 04:00 04:57 WBC (3.8-10.6) k/uL RBC (3.80-5.40) m/uL Hgb (11.4-16.0) gm/dL Hct (34.0-46.0) % Plt Count (150-450) k/uL Neutrophils # (1.3-7.7) k/uL Lymphocytes # (1.0-4.8) k/uL PT 12.2 H (9.0-12.0) sec INR 1.2 H (<1.2) APTT (22.0-30.0) sec ABG pH (7.35-7.45) ABG pCO2 (35-45) mmHg ABG pO2 (83-108) mmHg ABG HCO3 (21-25) mmol/L ABG Total CO2 (19-24) mmol/L ABG O2 Saturation (94-97) % ABG Hematocrit (34.0-46.0) % ABG Potassium (3.4-4.5) mmol/L Chloride (98-107) mmol/L Carbon Dioxide 21 L (22-30) mmol/L BUN 22 H (7-17) mg/dL Creatinine 4.65 H (0.52-1.04) mg/dL Glucose 151 H (74-99) mg/dL POC Glucose (mg/dL) 157 H (75-99) mg/dL Calcium (8.4-10.2) mg/dL Total Bilirubin 0.1 L (0.2-1.3) mg/dL Total Protein 5.4 L (6.3-8.2) g/dL Arterial Blood Potassium (3.4-4.5) mmol/L Crossmatch 07/28/17 07/28/17 07/28/17 Range/Units 06:42 07:55 08:55 WBC (3.8-10.6) k/uL RBC (3.80-5.40) m/uL Hgb (11.4-16.0) gm/dL Hct (34.0-46.0) % Plt Count (150-450) k/uL Neutrophils # (1.3-7.7) k/uL Lymphocytes # (1.0-4.8) k/uL PT (9.0-12.0) sec INR (<1.2) APTT (22.0-30.0) sec ABG pH (7.35-7.45) ABG pCO2 (35-45) mmHg ABG pO2 (83-108) mmHg ABG HCO3 (21-25) mmol/L ABG Total CO2 (19-24) mmol/L ABG O2 Saturation (94-97) % ABG Hematocrit (34.0-46.0) % ABG Potassium (3.4-4.5) mmol/L Chloride (98-107) mmol/L Carbon Dioxide (22-30) mmol/L BUN (7-17) mg/dL Creatinine (0.52-1.04) mg/dL Glucose (74-99) mg/dL POC Glucose (mg/dL) 140 H 141 H 117 H (75-99) mg/dL Calcium (8.4-10.2) mg/dL Total Bilirubin (0.2-1.3) mg/dL Total Protein (6.3-8.2) g/dL Arterial Blood Potassium (3.4-4.5) mmol/L Crossmatch Assessment and Plan Plan: ASSESSMENT: History of coronary artery disease previous stent placement. Patient is s/p CABG Kidney disease, stage IV Chronic diastolic heart failure Anemia of chronic disease, related to chronic renal failure History diabetes mellitus, type II Hyperglycemia, related to uncontrolled diabetes mellitus type 2, recent hemoglobin A1C was 9.2% PLAN: -Continue post op management per cardiothoracic surgery -Continue hemodialysis 3x weekly -Resume home meds as appropriate -DVT prophylaxis: Patient receiving heparin 5000 units subcu every 8 hours -GI prophylaxis: Patient receiving Protonix 40 mg IV daily -Monitor vital signs and address as appropriate -Continue to monitor capillary blood glucose -Monitor labs The above impression and plan of care have been discussed and directed by signing physician. Staci Tamayo, nurse practitioner, acting as scribe for signing physician.
[2017-07-28 11:09] LABS: Glucose,Whole Blood 116 mg/dL (75-99)
--- NOTE | 2017-07-28 11:26 | P.PN ---
Subjective Principal diagnosis: Status post CABG for multivessel coronary artery disease, postoperative day #1. This is a 72-year-old female with history of renal failure, on hemodialysis, postoperative day #1, patient underwent off pump coronary artery bypass grafting with BARROS to LAD, reverse greater saphenous vein graft to the obtuse marginal coronary artery and to the posterior descending coronary artery. Patient was seen yesterday on consultation, and around midnight patient was extubated uneventfully. She doing well today, she is actually receiving hemodialysis at the time of my evaluation. Patient denies any cough no wheezing no shortness of breath. Chest x-ray is showing minimal atelectasis, no evidence of pulmonary edema. Objective - Vital Signs Vital signs: Vital Signs Temp 97 F L 07/28/17 08:00 Pulse 67 07/28/17 11:00 Resp 18 07/28/17 11:00 BP 104/52 07/28/17 11:00 Pulse Ox 96 07/28/17 11:00 Intake & Output 07/27/17 07/28/17 07/28/17 18:59 06:59 18:59 Intake Total 1378.97 946.831 317.277 Output Total 1245 272 45 Balance 133.97 674.831 272.277 Weight 88.8 kg 88.8 kg Intake: IV 32 848 287 CO/CI 140 20 LR 600 140 Pressure Bag 108 27 ceFAZolin 2 gm In Sodium 100 Chloride 0.9% 100 ml @ 100 mls/hr IVPB Q8HR [facility] Rx#:[id number] Intake, IV Titration 1346.97 98.831 30.277 Amount ACETAMINOPHEN IV (For NPO 100 ) 1,000 mg In Empty Bag 1 bag @ 400 mls/hr IVPB Q6HR [facility]ON[facility] Rx#:[id number] Albumin Human 5% 250 ml 750 In Empty Bag 1 bag @ 250 mls/hr IVPB Q1HR PRN Rx#: [id number] DOPamine DRIP 800 mg In 11.11 Dextrose/Water 1 500ml. bag @ 2 MCG/KG/MIN 6.23 mls/hr IV .Q24H JON[facility] Rx#: [id number] Insulin Regular 100 unit 7.025 9.527 In Sodium Chloride 0.9% 100 ml @ Per Protocol IV .Q0M [facility] Rx#:[id number] Lactated Ringers 1,000 ml 180 50 @ 50 mls/hr IV .Q20H [facility] Rx#:[id number] Nitroglycerin-D5w Pmx 50 20.75 mg In Dextrose/Water 1 250ml.bag @ 5 MCG/MIN 1.5 mls/hr IV .Q24H [facility] Rx#: [id number] Potassium Chloride 10 meq 200 Lidocaine 2% Inj 10 mg In Sodium Chloride 0.9% 100 ml @ 100 mls/hr IV Q1HR [facility] Rx#:[id number] Propofol 1,000 mg In 100 16.97 30.696 ml @ Titrate IV .Q0M [facility] Rx#:[id number] ceFAZolin 2 gm In Sodium 100 Chloride 0.9% 100 ml @ 100 mls/hr IVPB Q8HR [facility] Rx#:[id number] Output: Chest Tube Drainage 130 212 40 Left Pleural/Mediastinal 35 42 0 Mediastinal 95 170 40 Urine 115 60 5 Estimated Blood Loss 1000 Other: Voiding Method Indwelling Catheter Indwelling Catheter Indwelling Catheter ABP, PAP, CO, CI - Last Documented Arterial Blood Pressure 112/31 Pulmonary Artery Pressure 18/5 Cardiac Output 4.3 Cardiac Index 2.3 - Exam Physical Exam: Revealed a 72-year-old female in no distress. HEENT:[Neck is supple.] [No neck masses.] [No thyromegaly.] [No JVD.] Dry mucous membranes were noted. Chest: [Diminished breath sounds bilaterally, no crackles, no rhonchi, no wheezes] Cardiac Exam: [Normal S1 and S2, no S3 gallop, no murmur.] Sternum seems to be stable. Abdomen: [Soft, nontender, no megaly, no rebound, no guarding, normal bowel sounds.] Extremities: [No clubbing, no edema, no cyanosis.]. Left arm AV fistula is noted with good thrill and bruit. Neurological Exam: [No focal neurologic deficit.] - Labs CBC & Chem 7: 07/28/17 04:00 07/28/17 04:00 Labs: Abnormal Lab Results - Last 24 Hours (Table) 07/21/17 07/27/17 07/27/17 Range/Units 13:00 08:41 10:17 WBC (3.8-10.6) k/uL RBC (3.80-5.40) m/uL Hgb (11.4-16.0) gm/dL Hct (34.0-46.0) % Plt Count (150-450) k/uL Neutrophils # (1.3-7.7) k/uL Lymphocytes # (1.0-4.8) k/uL PT (9.0-12.0) sec INR (<1.2) APTT (22.0-30.0) sec ABG pH 7.59 H 7.54 H (7.35-7.45) ABG pCO2 27 L 30 L (35-45) mmHg ABG pO2 277 H 328 H (83-108) mmHg ABG HCO3 26 H (21-25) mmol/L ABG Total CO2 27 H 26 H (19-24) mmol/L ABG O2 Saturation 99.9 H 100.0 H (94-97) % ABG Hematocrit 29 L 28 L (34.0-46.0) % ABG Potassium (3.4-4.5) mmol/L Chloride (98-107) mmol/L Carbon Dioxide (22-30) mmol/L BUN (7-17) mg/dL Creatinine (0.52-1.04) mg/dL Glucose (74-99) mg/dL POC Glucose (mg/dL) (75-99) mg/dL Hemoglobin A1c (4.2-6.1) % Calcium (8.4-10.2) mg/dL Total Bilirubin (0.2-1.3) mg/dL Total Protein (6.3-8.2) g/dL Arterial Blood Potassium (3.4-4.5) mmol/L Crossmatch See Detail 07/27/17 07/27/17 07/27/17 Range/Units 10:48 11:33 11:33 WBC (3.8-10.6) k/uL RBC (3.80-5.40) m/uL Hgb (11.4-16.0) gm/dL Hct (34.0-46.0) % Plt Count (150-450) k/uL Neutrophils # (1.3-7.7) k/uL Lymphocytes # (1.0-4.8) k/uL PT (9.0-12.0) sec INR (<1.2) APTT (22.0-30.0) sec ABG pH 7.55 H 7.50 H (7.35-7.45) ABG pCO2 28 L 31 L (35-45) mmHg ABG pO2 292 H 309 H (83-108) mmHg ABG HCO3 (21-25) mmol/L ABG Total CO2 25 H 25 H (19-24) mmol/L ABG O2 Saturation 99.9 H 99.9 H (94-97) % ABG Hematocrit 26 L 26 L (34.0-46.0) % ABG Potassium 3.3 L (3.4-4.5) mmol/L Chloride (98-107) mmol/L Carbon Dioxide (22-30) mmol/L BUN (7-17) mg/dL Creatinine (0.52-1.04) mg/dL Glucose (74-99) mg/dL POC Glucose (mg/dL) 148 H (75-99) mg/dL Hemoglobin A1c (4.2-6.1) % Calcium (8.4-10.2) mg/dL Total Bilirubin (0.2-1.3) mg/dL Total Protein (6.3-8.2) g/dL Arterial Blood Potassium 3.3 L (3.4-4.5) mmol/L Crossmatch 07/27/17 07/27/17 07/27/17 Range/Units 12:17 12:18 12:42 WBC (3.8-10.6) k/uL RBC (3.80-5.40) m/uL Hgb (11.4-16.0) gm/dL Hct (34.0-46.0) % Plt Count (150-450) k/uL Neutrophils # (1.3-7.7) k/uL Lymphocytes # (1.0-4.8) k/uL PT (9.0-12.0) sec INR (<1.2) APTT (22.0-30.0) sec ABG pH 7.50 H (7.35-7.45) ABG pCO2 30 L (35-45) mmHg ABG pO2 303 H (83-108) mmHg ABG HCO3 (21-25) mmol/L ABG Total CO2 25 H (19-24) mmol/L ABG O2 Saturation 99.9 H (94-97) % ABG Hematocrit 23 L (34.0-46.0) % ABG Potassium (3.4-4.5) mmol/L Chloride (98-107) mmol/L Carbon Dioxide (22-30) mmol/L BUN (7-17) mg/dL Creatinine (0.52-1.04) mg/dL Glucose (74-99) mg/dL POC Glucose (mg/dL) 139 H 120 H (75-99) mg/dL Hemoglobin A1c (4.2-6.1) % Calcium (8.4-10.2) mg/dL Total Bilirubin (0.2-1.3) mg/dL Total Protein (6.3-8.2) g/dL Arterial Blood Potassium (3.4-4.5) mmol/L Crossmatch 07/27/17 07/27/17 07/27/17 Range/Units 12:42 14:00 14:00 WBC 10.9 H (3.8-10.6) k/uL RBC 2.40 L (3.80-5.40) m/uL Hgb 7.6 L D (11.4-16.0) gm/dL Hct 23.0 L (34.0-46.0) % Plt Count 141 L (150-450) k/uL Neutrophils # 8.6 H (1.3-7.7) k/uL Lymphocytes # (1.0-4.8) k/uL PT (9.0-12.0) sec INR (<1.2) APTT (22.0-30.0) sec ABG pH 7.46 H (7.35-7.45) ABG pCO2 33 L (35-45) mmHg ABG pO2 286 H (83-108) mmHg ABG HCO3 (21-25) mmol/L ABG Total CO2 (19-24) mmol/L ABG O2 Saturation 99.9 H (94-97) % ABG Hematocrit 24 L (34.0-46.0) % ABG Potassium 3.2 L (3.4-4.5) mmol/L Chloride (98-107) mmol/L Carbon Dioxide (22-30) mmol/L BUN 19 H (7-17) mg/dL Creatinine 3.66 H (0.52-1.04) mg/dL Glucose (74-99) mg/dL POC Glucose (mg/dL) (75-99) mg/dL Hemoglobin A1c (4.2-6.1) % Calcium 7.9 L (8.4-10.2) mg/dL Total Bilirubin (0.2-1.3) mg/dL Total Protein 5.1 L (6.3-8.2) g/dL Arterial Blood Potassium 3.2 L (3.4-4.5) mmol/L Crossmatch 07/27/17 07/27/17 07/27/17 Range/Units 14:00 14:00 14:20 WBC (3.8-10.6) k/uL RBC (3.80-5.40) m/uL Hgb (11.4-16.0) gm/dL Hct (34.0-46.0) % Plt Count (150-450) k/uL Neutrophils # (1.3-7.7) k/uL Lymphocytes # (1.0-4.8) k/uL PT 13.1 H (9.0-12.0) sec INR 1.3 H (<1.2) APTT 30.5 H (22.0-30.0) sec ABG pH (7.35-7.45) ABG pCO2 (35-45) mmHg ABG pO2 >420 H (83-108) mmHg ABG HCO3 (21-25) mmol/L ABG Total CO2 (19-24) mmol/L ABG O2 Saturation 100.0 H (94-97) % ABG Hematocrit (34.0-46.0) % ABG Potassium (3.4-4.5) mmol/L Chloride (98-107) mmol/L Carbon Dioxide (22-30) mmol/L BUN (7-17) mg/dL Creatinine (0.52-1.04) mg/dL Glucose (74-99) mg/dL POC Glucose (mg/dL) (75-99) mg/dL Hemoglobin A1c 9.0 H (4.2-6.1) % Calcium (8.4-10.2) mg/dL Total Bilirubin (0.2-1.3) mg/dL Total Protein (6.3-8.2) g/dL Arterial Blood Potassium (3.4-4.5) mmol/L Crossmatch 07/27/17 07/27/17 07/27/17 Range/Units 15:11 16:08 17:14 WBC (3.8-10.6) k/uL RBC (3.80-5.40) m/uL Hgb (11.4-16.0) gm/dL Hct (34.0-46.0) % Plt Count (150-450) k/uL Neutrophils # (1.3-7.7) k/uL Lymphocytes # (1.0-4.8) k/uL PT (9.0-12.0) sec INR (<1.2) APTT (22.0-30.0) sec ABG pH (7.35-7.45) ABG pCO2 (35-45) mmHg ABG pO2 (83-108) mmHg ABG HCO3 (21-25) mmol/L ABG Total CO2 (19-24) mmol/L ABG O2 Saturation (94-97) % ABG Hematocrit (34.0-46.0) % ABG Potassium (3.4-4.5) mmol/L Chloride (98-107) mmol/L Carbon Dioxide (22-30) mmol/L BUN (7-17) mg/dL Creatinine (0.52-1.04) mg/dL Glucose (74-99) mg/dL POC Glucose (mg/dL) 126 H 103 H 126 H (75-99) mg/dL Hemoglobin A1c (4.2-6.1) % Calcium (8.4-10.2) mg/dL Total Bilirubin (0.2-1.3) mg/dL Total Protein (6.3-8.2) g/dL Arterial Blood Potassium (3.4-4.5) mmol/L Crossmatch 07/27/17 07/27/17 07/27/17 Range/Units 17:58 18:00 19:01 WBC (3.8-10.6) k/uL RBC 2.40 L (3.80-5.40) m/uL Hgb 7.4 L (11.4-16.0) gm/dL Hct 22.8 L (34.0-46.0) % Plt Count 130 L (150-450) k/uL Neutrophils # (1.3-7.7) k/uL Lymphocytes # (1.0-4.8) k/uL PT (9.0-12.0) sec INR (<1.2) APTT (22.0-30.0) sec ABG pH (7.35-7.45) ABG pCO2 (35-45) mmHg ABG pO2 (83-108) mmHg ABG HCO3 (21-25) mmol/L ABG Total CO2 (19-24) mmol/L ABG O2 Saturation (94-97) % ABG Hematocrit (34.0-46.0) % ABG Potassium (3.4-4.5) mmol/L Chloride (98-107) mmol/L Carbon Dioxide (22-30) mmol/L BUN (7-17) mg/dL Creatinine (0.52-1.04) mg/dL Glucose (74-99) mg/dL POC Glucose (mg/dL) 149 H 147 H (75-99) mg/dL Hemoglobin A1c (4.2-6.1) % Calcium (8.4-10.2) mg/dL Total Bilirubin (0.2-1.3) mg/dL Total Protein (6.3-8.2) g/dL Arterial Blood Potassium (3.4-4.5) mmol/L Crossmatch 07/27/17 07/27/17 07/27/17 Range/Units 19:55 19:55 19:57 WBC (3.8-10.6) k/uL RBC 2.45 L (3.80-5.40) m/uL Hgb 7.7 L (11.4-16.0) gm/dL Hct 23.3 L (34.0-46.0) % Plt Count 140 L (150-450) k/uL Neutrophils # (1.3-7.7) k/uL Lymphocytes # 0.7 L (1.0-4.8) k/uL PT (9.0-12.0) sec INR (<1.2) APTT (22.0-30.0) sec ABG pH (7.35-7.45) ABG pCO2 (35-45) mmHg ABG pO2 (83-108) mmHg ABG HCO3 (21-25) mmol/L ABG Total CO2 (19-24) mmol/L ABG O2 Saturation (94-97) % ABG Hematocrit (34.0-46.0) % ABG Potassium (3.4-4.5) mmol/L Chloride 108 H (98-107) mmol/L Carbon Dioxide 21 L (22-30) mmol/L BUN 21 H (7-17) mg/dL Creatinine 3.89 H (0.52-1.04) mg/dL Glucose 120 H (74-99) mg/dL POC Glucose (mg/dL) 136 H (75-99) mg/dL Hemoglobin A1c (4.2-6.1) % Calcium 8.2 L (8.4-10.2) mg/dL Total Bilirubin (0.2-1.3) mg/dL Total Protein (6.3-8.2) g/dL Arterial Blood Potassium (3.4-4.5) mmol/L Crossmatch 07/27/17 07/27/17 07/27/17 Range/Units 20:58 22:03 23:00 WBC (3.8-10.6) k/uL RBC (3.80-5.40) m/uL Hgb (11.4-16.0) gm/dL Hct (34.0-46.0) % Plt Count (150-450) k/uL Neutrophils # (1.3-7.7) k/uL Lymphocytes # (1.0-4.8) k/uL PT (9.0-12.0) sec INR (<1.2) APTT (22.0-30.0) sec ABG pH (7.35-7.45) ABG pCO2 (35-45) mmHg ABG pO2 (83-108) mmHg ABG HCO3 (21-25) mmol/L ABG Total CO2 (19-24) mmol/L ABG O2 Saturation (94-97) % ABG Hematocrit (34.0-46.0) % ABG Potassium (3.4-4.5) mmol/L Chloride (98-107) mmol/L Carbon Dioxide (22-30) mmol/L BUN (7-17) mg/dL Creatinine (0.52-1.04) mg/dL Glucose (74-99) mg/dL POC Glucose (mg/dL) 118 H 131 H 120 H (75-99) mg/dL Hemoglobin A1c (4.2-6.1) % Calcium (8.4-10.2) mg/dL Total Bilirubin (0.2-1.3) mg/dL Total Protein (6.3-8.2) g/dL Arterial Blood Potassium (3.4-4.5) mmol/L Crossmatch 07/27/17 07/28/17 07/28/17 Range/Units 23:35 00:03 01:06 WBC (3.8-10.6) k/uL RBC (3.80-5.40) m/uL Hgb (11.4-16.0) gm/dL Hct (34.0-46.0) % Plt Count (150-450) k/uL Neutrophils # (1.3-7.7) k/uL Lymphocytes # (1.0-4.8) k/uL PT (9.0-12.0) sec INR (<1.2) APTT (22.0-30.0) sec ABG pH 7.32 L (7.35-7.45) ABG pCO2 (35-45) mmHg ABG pO2 (83-108) mmHg ABG HCO3 (21-25) mmol/L ABG Total CO2 (19-24) mmol/L ABG O2 Saturation (94-97) % ABG Hematocrit (34.0-46.0) % ABG Potassium (3.4-4.5) mmol/L Chloride (98-107) mmol/L Carbon Dioxide (22-30) mmol/L BUN (7-17) mg/dL Creatinine (0.52-1.04) mg/dL Glucose (74-99) mg/dL POC Glucose (mg/dL) 119 H 127 H (75-99) mg/dL Hemoglobin A1c (4.2-6.1) % Calcium (8.4-10.2) mg/dL Total Bilirubin (0.2-1.3) mg/dL Total Protein (6.3-8.2) g/dL Arterial Blood Potassium (3.4-4.5) mmol/L Crossmatch 07/28/17 07/28/17 07/28/17 Range/Units 02:01 03:02 03:59 WBC (3.8-10.6) k/uL RBC (3.80-5.40) m/uL Hgb (11.4-16.0) gm/dL Hct (34.0-46.0) % Plt Count (150-450) k/uL Neutrophils # (1.3-7.7) k/uL Lymphocytes # (1.0-4.8) k/uL PT (9.0-12.0) sec INR (<1.2) APTT (22.0-30.0) sec ABG pH (7.35-7.45) ABG pCO2 (35-45) mmHg ABG pO2 (83-108) mmHg ABG HCO3 (21-25) mmol/L ABG Total CO2 (19-24) mmol/L ABG O2 Saturation (94-97) % ABG Hematocrit (34.0-46.0) % ABG Potassium (3.4-4.5) mmol/L Chloride (98-107) mmol/L Carbon Dioxide (22-30) mmol/L BUN (7-17) mg/dL Creatinine (0.52-1.04) mg/dL Glucose (74-99) mg/dL POC Glucose (mg/dL) 137 H 149 H 166 H (75-99) mg/dL Hemoglobin A1c (4.2-6.1) % Calcium (8.4-10.2) mg/dL Total Bilirubin (0.2-1.3) mg/dL Total Protein (6.3-8.2) g/dL Arterial Blood Potassium (3.4-4.5) mmol/L Crossmatch 07/28/17 07/28/17 07/28/17 Range/Units 04:00 04:00 04:00 WBC 10.9 H (3.8-10.6) k/uL RBC 2.67 L (3.80-5.40) m/uL Hgb 8.1 L (11.4-16.0) gm/dL Hct 25.9 L (34.0-46.0) % Plt Count 135 L (150-450) k/uL Neutrophils # 9.7 H (1.3-7.7) k/uL Lymphocytes # 0.6 L (1.0-4.8) k/uL PT 12.2 H (9.0-12.0) sec INR 1.2 H (<1.2) APTT (22.0-30.0) sec ABG pH (7.35-7.45) ABG pCO2 (35-45) mmHg ABG pO2 (83-108) mmHg ABG HCO3 (21-25) mmol/L ABG Total CO2 (19-24) mmol/L ABG O2 Saturation (94-97) % ABG Hematocrit (34.0-46.0) % ABG Potassium (3.4-4.5) mmol/L Chloride (98-107) mmol/L Carbon Dioxide 21 L (22-30) mmol/L BUN 22 H (7-17) mg/dL Creatinine 4.65 H (0.52-1.04) mg/dL Glucose 151 H (74-99) mg/dL POC Glucose (mg/dL) (75-99) mg/dL Hemoglobin A1c (4.2-6.1) % Calcium (8.4-10.2) mg/dL Total Bilirubin 0.1 L (0.2-1.3) mg/dL Total Protein 5.4 L (6.3-8.2) g/dL Arterial Blood Potassium (3.4-4.5) mmol/L Crossmatch 07/28/17 07/28/17 07/28/17 Range/Units 04:57 06:42 07:55 WBC (3.8-10.6) k/uL RBC (3.80-5.40) m/uL Hgb (11.4-16.0) gm/dL Hct (34.0-46.0) % Plt Count (150-450) k/uL Neutrophils # (1.3-7.7) k/uL Lymphocytes # (1.0-4.8) k/uL PT (9.0-12.0) sec INR (<1.2) APTT (22.0-30.0) sec ABG pH (7.35-7.45) ABG pCO2 (35-45) mmHg ABG pO2 (83-108) mmHg ABG HCO3 (21-25) mmol/L ABG Total CO2 (19-24) mmol/L ABG O2 Saturation (94-97) % ABG Hematocrit (34.0-46.0) % ABG Potassium (3.4-4.5) mmol/L Chloride (98-107) mmol/L Carbon Dioxide (22-30) mmol/L BUN (7-17) mg/dL Creatinine (0.52-1.04) mg/dL Glucose (74-99) mg/dL POC Glucose (mg/dL) 157 H 140 H 141 H (75-99) mg/dL Hemoglobin A1c (4.2-6.1) % Calcium (8.4-10.2) mg/dL Total Bilirubin (0.2-1.3) mg/dL Total Protein (6.3-8.2) g/dL Arterial Blood Potassium (3.4-4.5) mmol/L Crossmatch 07/28/17 07/28/17 07/28/17 Range/Units 08:55 10:16 11:07 WBC (3.8-10.6) k/uL RBC (3.80-5.40) m/uL Hgb (11.4-16.0) gm/dL Hct (34.0-46.0) % Plt Count (150-450) k/uL Neutrophils # (1.3-7.7) k/uL Lymphocytes # (1.0-4.8) k/uL PT (9.0-12.0) sec INR (<1.2) APTT (22.0-30.0) sec ABG pH (7.35-7.45) ABG pCO2 (35-45) mmHg ABG pO2 (83-108) mmHg ABG HCO3 (21-25) mmol/L ABG Total CO2 (19-24) mmol/L ABG O2 Saturation (94-97) % ABG Hematocrit (34.0-46.0) % ABG Potassium (3.4-4.5) mmol/L Chloride (98-107) mmol/L Carbon Dioxide (22-30) mmol/L BUN (7-17) mg/dL Creatinine (0.52-1.04) mg/dL Glucose (74-99) mg/dL POC Glucose (mg/dL) 117 H 140 H 116 H (75-99) mg/dL Hemoglobin A1c (4.2-6.1) % Calcium (8.4-10.2) mg/dL Total Bilirubin (0.2-1.3) mg/dL Total Protein (6.3-8.2) g/dL Arterial Blood Potassium (3.4-4.5) mmol/L Crossmatch Assessment and Plan Plan: Impression: 1 status post CABG, postoperative day #1, patient was extubated last night uneventfully, and tolerated the extubation well. 2 history of coronary artery disease/triple-vessel coronary artery disease, recent non-ST elevation myocardial infarction. 3 history of congestive heart failure. 4 history of end-stage renal disease on hemodialysis. 5 history of type 2 diabetes 6 history of mixed hyperlipidemia. Recommendation: Continue present treatment plan including dialysis, incentive spirometry, bronchodilators, early ambulation, we'll continue to follow. Time with Patient: Less than 30
[2017-07-28] MEDS: CLOPIDOGREL 75 MG TAB PO SCH (11:49)
[2017-07-28] MEDS: CALCIUM ACETATE 667 MG CAP PO SCH ×2 (11:51→18:09)
[2017-07-28 13:18] LABS: Glucose,Whole Blood 118 mg/dL (75-99)
--- NOTE | 2017-07-28 13:46 | P.CRDCN ---
History of Present Illness Consult date: 07/28/17 Reason for Consult (text): CAD status post CABG History of present illness: 72-year-old lady with three-vessel coronary artery disease underwent bypass surgery yesterday. She is postop day #1. Doing well and remains in sinus rhythm off pressors back on her medications hemodynamically stable. I reviewed I reviewed his surgical report EKGs and rhythm strips labs Review of Systems Constitutional: Denies chills. Denies fever. Eyes: Denies blurred vision. Denies pain. Ears, nose, mouth and throat: Denies headache. Denies sore throat. Cardiovascular: has chest pain. Denies shortness of breath. Respiratory: Denies cough. Gastrointestinal: Denies abdominal pain. Denies diarrhea. Denies nausea. Denies vomiting. Musculoskeletal: Denies myalgias. Integumentary: Denies pruritus. Denies rash. Neurological: Denies numbness. Denies weakness. Psychiatric: Denies anxiety. Denies depression. Endocrine: Denies fatigue. Denies weight change. Genitourinary: Denies burning, hematuria, frequency of urination. Hematological: No anemia or excess bleeding. Past Medical History Past Medical History: Coronary Artery Disease (CAD), Chest Pain / Angina, Diabetes Mellitus, Dialysis, Hyperlipidemia, Hypertension, Myocardial Infarction ([place]), Renal Disease Additional Past Medical History / Comment(s): End-stage renal disease with hemodialysis 3 times a week usually has on . , sat.-left arm AV fistula , Non-STEMI 03/14/16, peripheral neuropathy bilateral feet cataracts bilaterally , frequent UTI'S, stress incontinence. Last Myocardial Infarction Date:: 07/15/2017 History of Any Multi-Drug Resistant Organisms: None Reported Past Surgical History: Appendectomy, Cholecystectomy, Heart Catheterization, Heart Catheterization With Stent, Tonsillectomy Additional Past Surgical History / Comment(s): 03/15/16 PTCA with stent to mid LAD,06-07-16 HEART CATH STENT TO PROX RCA. Restented mid LAD 11/20/16 A/V fistula with revision L upper arm, history of Lasix eye surgery and cataract removal. Past Anesthesia/Blood Transfusion Reactions: No Reported Reaction Date of Last Stent Placement:: 11/21/2016 Smoking Status: Former smoker - Past Family History Father Family Medical History: Diabetes Mellitus Additional Family Medical History / Comment(s): Father of diabetic complications in his 40's Mother Family Medical History: Cancer, Myocardial Infarction ([place]) Additional Family Medical History / Comment(s): Cancer unknown type. Mother of a [place] in her early 50's Brother(s) Family Medical History: Cancer Additional Family Medical History / Comment(s): Her brother from lung cancer and cirrhosis of the liver. Medications and Allergies Home Medications Medication Instructions Recorded Confirmed Type Folic Acid-Vit B Complex-Vit C 1 cap PO DAILY 06/06/16 07/27/17 History [Nephrocaps] Citalopram Hydrobromide [CeleXA] 20 mg PO DAILY 08/05/16 07/27/17 History Isosorbide Mononitrate ER [Imdur] 30 mg PO DAILY 11/19/16 07/27/17 History Atorvastatin [Lipitor] 80 mg PO HS #30 tab 11/22/16 07/27/17 Rx Clopidogrel [Plavix] 75 mg PO DAILY #30 tab 11/22/16 07/27/17 Rx Nitroglycerin Sl Tabs [Nitrostat] 0.4 mg SUBLINGUAL Q5M PRN #25 tab 11/22/1606/05 Rx Furosemide [Lasix] 40 mg PO DAILY 04/21/17 07/27/17 History Meclizine [Antivert] 25 mg PO BID PRN 04/21/17 07/27/17 History Insulin Glargine,Hum.rec.anlog 40 unit SQ QAM 06/03/17 07/27/17 History [Lantus Solostar] Ondansetron Odt [Zofran ODT] 4 mg PO Q8HR PRN #10 tab 06/24/17 07/27/17 Rx Calcium Acetate [PhosLo] 1,334 mg PO AC-TID cap 07/18/17 07/27/17 Rx Carvedilol [Coreg*] 25 mg PO BID-W/MEALS tab 07/18/17 07/27/17 Rx Cholecalciferol [Vitamin D3] 1,000 unit PO DAILY tab 07/18/17 07/27/17 Rx Cyanocobalamin [Vitamin B-12] 1,000 mcg PO DAILY tab 07/18/17 07/27/17 Rx Ferrous Sulfate [Iron (65 MG 325 mg PO BID-W/MEALS tab 07/18/17 07/27/17 Rx Elemental)] Aspirin 325 mg PO DAILY 07/21/17 07/27/17 History Allergies Allergy/AdvReac Type Severity Reaction Status Date / Time glyburide [From Diabeta] Allergy Rash/Hives Verified 07/27/17 06:03 Physical Exam Vitals: Vital Signs Temp Pulse Pulse Resp BP Pulse Ox 07/28/17 11:00 67 18 104/52 96 07/28/17 10:00 74 14 91/46 96 07/28/17 09:00 72 14 96/47 97 07/28/17 08:00 97 F L 80 12 111/53 97 07/28/17 07:00 69 98 07/28/17 06:00 69 100/47 96 07/28/17 05:00 71 105/47 96 07/28/17 04:00 97 F L 76 99/54 96 07/28/17 03:50 12 07/28/17 03:00 76 101/44 94 L 07/28/17 02:00 97.0 F L 76 95 07/28/17 01:00 74 96 07/28/17 00:00 97.3 F L 77 96 07/27/17 23:00 87 96 07/27/17 22:00 97.9 F 90 96 07/27/17 21:19 87 97 07/27/17 21:00 98.2 F 81 12 97 07/27/17 20:07 79 07/27/17 20:00 78 71 16 100 07/27/17 19:40 79 07/27/17 19:00 76 95 07/27/17 18:45 77 95 07/27/17 18:30 80 96 07/27/17 18:15 81 96 07/27/17 18:00 76 94 L 07/27/17 17:45 76 100 07/27/17 17:30 88 99 07/27/17 17:15 88 100 07/27/17 17:00 89 99 07/27/17 16:45 91 99 07/27/17 16:30 93 99 07/27/17 16:15 63 94 L 07/27/17 16:00 60 83 L 07/27/17 15:52 68 07/27/17 15:45 67 100 07/27/17 15:40 68 07/27/17 15:30 65 100 07/27/17 15:15 60 99 07/27/17 15:00 64 99 07/27/17 14:45 54 L 07/27/17 14:30 60 100 07/27/17 14:15 57 L 96 07/27/17 14:12 60 98 Intake and Output 07/27/17 07/28/17 07/28/17 22:59 06:59 14:59 Intake Total 1437.771 556.03 347.277 Output Total 472 595 5542 Balance 1127.771 409.03 -1706.723 Intake: IV 296 552 317 CO/CI 60 80 20 LR 200 400 170 Pressure Bag 36 72 27 ceFAZolin 2 gm In Sodium 100 Chloride 0.9% 100 ml @ 100 mls/hr IVPB Q8HR [facility] Rx#:[id number] Intake, IV Titration 1141.771 4.03 30.277 Amount ACETAMINOPHEN IV (For NPO 100 ) 1,000 mg In Empty Bag 1 bag @ 400 mls/hr IVPB Q6HR [facility] Rx#:[id number] Albumin Human 5% 250 ml 500 In Empty Bag 1 bag @ 250 mls/hr IVPB Q1HR PRN Rx#: [id number] DOPamine DRIP 800 mg In 11.11 Dextrose/Water 1 500ml. bag @ 2 MCG/KG/MIN 6.23 mls/hr IV .Q24H [facility] Rx#: [id number] Insulin Regular 100 unit 2.995 4.03 9.527 In Sodium Chloride 0.9% 100 ml @ Per Protocol IV .Q0M [facility] Rx#:[id number] Lactated Ringers 1,000 ml 180 @ 50 mls/hr IV .Q20H [facility] Rx#:[id number] Nitroglycerin-D5w Pmx 50 20.75 mg In Dextrose/Water 1 250ml.bag @ 5 MCG/MIN 1.5 mls/hr IV .Q24H [facility] Rx#: [id number] Potassium Chloride 10 meq 200 Lidocaine 2% Inj 10 mg In Sodium Chloride 0.9% 100 ml @ 100 mls/hr IV Q1HR [facility] Rx#:[id number] Propofol 1,000 mg In 100 47.666 ml @ Titrate IV .Q0M [facility] Rx#:[id number] ceFAZolin 2 gm In Sodium 100 Chloride 0.9% 100 ml @ 100 mls/hr IVPB Q8HR [facility] Rx#:[id number] Output: Chest Tube Drainage 235 107 40 Left Pleural/Mediastinal 60 17 0 Mediastinal 175 90 40 Urine 75 40 14 Other 2000 Other: Voiding Method Indwelling Catheter Indwelling Catheter Indwelling Catheter Weight 88.8 kg 88.8 kg Patient Weight 07/29/17 06:59 Weight 88.8 kg ABP, PAP, CO, CI - Last 8 Hours Arterial Blood Pressure 112/31 Arterial Blood Pressure 113/32 Arterial Blood Pressure 109/28 Arterial Blood Pressure 124/34 Arterial Blood Pressure 103/32 Arterial Blood Pressure 107/35 Pulmonary Artery Pressure 18/5 Pulmonary Artery Pressure 22/10 Pulmonary Artery Pressure 23/12 Pulmonary Artery Pressure 28/18 Cardiac Output 4.3 Cardiac Output 4.3 Cardiac Output 4.3 Cardiac Output 4.3 Cardiac Output 4.3 Cardiac Output 4.3 Cardiac Index 2.3 General: The patient is awake and alert, in no distress, and does not appear acutely ill. Skin: Skin is warm and dry and no rashes or lesions are noted. Eye: Pupils are equal, round and reactive to light, extra-ocular movements are intact; there is normal conjunctiva bilaterally. Ears, nose, mouth and throat: There are moist mucous membranes and no oral lesions. Neck: The neck is supple, there is no tenderness or JVD. Cardiovascular: There is a regular rate and rhythm. No murmur, rub or gallop is appreciated. Respiratory: Diminished air entry bilaterally Gastrointestinal: Soft, non-distended, non-tender abdomen without masses or organomegaly noted. There is no rebound or guarding present. Bowel sounds are unremarkable. Back: There is no tenderness to palpation in the midline. There is no obvious deformity. Musculoskeletal: Normal ROM, no tenderness, There is no pedal edema. There is no calf tenderness or swelling. Extremities: No edema. Vascular: Femoral pulse is normal. Posterior tibial pulses are normal .Dorsalis pedis is palpable. Neurological: CN II-XII intact. There are no obvious motor or sensory deficits. Speech is normal. Psychiatric: Cooperative, appropriate mood & affect, normal judgment. Results 07/28/17 04:00 07/28/17 04:00 Cardiac Enzymes 07/27/17 07/28/17 Range/Units 14:00 04:00 AST 22 30 (14-36) U/L Coagulation 07/27/17 07/28/17 Range/Units 14:00 04:00 PT 13.1 H 12.2 H (9.0-12.0) sec APTT 30.5 H (22.0-30.0) sec CBC 07/27/17 07/27/17 07/27/17 Range/Units 14:00 18:00 19:55 WBC 10.9 H 9.1 8.2 (3.8-10.6) k/uL RBC 2.40 L 2.40 L 2.45 L (3.80-5.40) m/uL Hgb 7.6 L D 7.4 L 7.7 L (11.4-16.0) gm/dL Hct 23.0 L 22.8 L 23.3 L (34.0-46.0) % Plt Count 141 L 130 L 140 L (150-450) k/uL 07/28/17 Range/Units 04:00 WBC 10.9 H (3.8-10.6) k/uL RBC 2.67 L (3.80-5.40) m/uL Hgb 8.1 L (11.4-16.0) gm/dL Hct 25.9 L (34.0-46.0) % Plt Count 135 L (150-450) k/uL Comprehensive Metabolic Panel 07/27/17 07/27/17 07/28/17 Range/Units 14:00 19:55 04:00 Sodium 143 142 145 (137-145) mmol/L Potassium 3.7 4.4 5.0 (3.5-5.1) mmol/L Chloride 107 108 H 107 (98-107) mmol/L Carbon Dioxide 24 21 L 21 L (22-30) mmol/L BUN 19 H 21 H 22 H (7-17) mg/dL Creatinine 3.66 H 3.89 H 4.65 H (0.52-1.04) mg/dL Glucose 96 120 H 151 H (74-99) mg/dL Calcium 7.9 L 8.2 L 8.5 (8.4-10.2) mg/dL AST 22 30 (14-36) U/L ALT 26 14 (9-52) U/L Alkaline Phosphatase 40 44 (38-126) U/L Total Protein 5.1 L 5.4 L (6.3-8.2) g/dL Albumin 3.6 3.9 (3.5-5.0) g/dL Current Medications Generic Name Dose Route Start Last Admin Trade Name Freq PRN Reason Stop Dose Admin Hydrocodone Bitart/Acetaminophen 2 each 07/28/17 13:59 Edison 5-325 PO Q4HR PRN Severe Pain Albuterol/Ipratropium 3 ml 07/28/17 14:00 Duoneb 0.5 Mg-3 Mg/3 Ml Soln INHALATION RT-Q2H PRN Shortness Of Breath Or Wheezing Alprazolam 0.25 mg 07/27/17 13:57 07/27/17 20:35 Xanax PO 0.25 mg BID PRN Administration Anxiety Aspirin 325 mg 07/28/17 09:00 07/28/17 09:36 Aspirin PO 325 mg DAILY [facility] Administration Atorvastatin Calcium 40 mg 07/28/17 09:00 07/28/17 09:36 Lipitor PO 40 mg DAILY [facility] Administration Benzocaine/Menthol 1 each 07/27/17 13:57 Cepacol Lozenge MUCOUS MEM Q2H PRN Sore Throat Bisacodyl 10 mg 07/28/17 13:59 Dulcolax RECTAL DAILY PRN Constipation Calcium Acetate 1,334 mg 07/28/17 12:30 07/28/17 11:51 Phoslo PO 1,334 mg AC-TID [facility] Administration Cholecalciferol 1,000 unit 07/29/17 09:00 Vitamin D3 PO DAILY [facility] Citalopram Hydrobromide 20 mg 07/29/17 09:00 Celexa PO DAILY [facility] Clopidogrel Bisulfate 75 mg 07/28/17 12:00 07/28/17 11:49 Plavix PO 75 mg DAILY [facility] Administration Cyanocobalamin 1,000 mcg 07/29/17 09:00 Vitamin B-12 PO DAILY [facility] Ferrous Sulfate 325 mg 07/28/17 17:30 Feosol PO BID-W/MEALS [facility] Heparin Sodium (Porcine) 5,000 unit 07/28/17 00:00 07/28/17 07:20 Heparin SQ 5,000 unit Q8HR [facility] Administration Hydralazine HCl 10 mg 07/27/17 13:57 Apresoline IVP Q1H PRN Blood Pressure - High Acetaminophen 1,000 mg/ IV 100 mls @ 400 mls/hr 07/27/17 18:00 07/28/17 05:32 Solution IVPB 07/28/17 16:00 400 mls/hr Q6HR [facility] Administration Albumin Human 250 ml/ IV 250 mls @ 250 mls/hr 07/27/17 13:57 Solution IVPB 07/29/17 13:58 Q1HR PRN For Volume Calcium Gluconate 2,000 mg/ 120 mls @ 100 mls/hr 07/27/17 13:57 Sodium Chloride IVPB 07/28/17 13:58 ONCE PRN Ionized Calcium less than 4.4 Clevidipine 25 mg/ IV Solution 50 mls @ 2 mls/hr 07/27/17 14:00 07/27/17 20: 36 IV Not Given .Q24H [facility] Protocol 1 MG/HR Lactated Ringer's 1,000 mls @ 50 mls/hr 07/27/17 14:00 07/28/17 09:36 Lactated Ringers IV 50 mls/hr .Q20H [facility] Administration Nitroglycerin/Dextrose 50 mg/ 250 mls @ 1.5 mls/hr 07/27/17 14:00 07/28/17 08 :00 IV Solution IV 0 mcg/min .Q24H [facility] 0 mls/hr 5 MCG/MIN Infusion Propofol 1,000 mg in 100 mls @ 0 mls/hr 07/27/17 14:00 07/27/17 20:00 Diprivan IV 0 mcg/kg/min .Q0M [facility] 0 mls/hr Protocol Titration Titrate Dopamine HCl/Dextrose 800 mg/ 500 mls @ 6.23 mls/hr 07/27/17 17:00 07/27/17 19:22 IV Solution IV 0 mcg/kg/min .Q24H [facility] 0 mls/hr Protocol Titration 2 MCG/KG/MIN Insulin Human Regular 100 unit 101 mls @ 0 mls/hr 07/27/17 18:15 07/28/17 10: 00 / Sodium Chloride IV 1.5 units/hr .Q0M [facility] 1.51 mls/hr Protocol Titration Per Protocol Ketorolac Tromethamine 15 mg 07/27/17 13:57 07/28/17 04:00 Toradol IVP 08/01/17 13:58 15 mg Q6H PRN Administration Moderate Pain Magnesium Hydroxide 2,400 mg 07/28/17 13:59 Milk Of Magnesia PO BID PRN Constipation Meclizine HCl 25 mg 07/28/17 10:45 Antivert PO BID PRN Vertigo Metoclopramide HCl 10 mg 07/27/17 13:57 Reglan IVP Q4H PRN Nausea And Vomiting Metoprolol Tartrate 12.5 mg 07/28/17 12:00 07/28/17 09:36 Lopressor PO 12.5 mg BID [facility] Administration Miscellaneous Information 1 each 07/27/17 13:57 Magnesium Per Protocol MISCELLANE DAILY PRN Per Protocol Protocol Miscellaneous Information 1 each 07/27/17 13:57 Phosphorus Per Protocol MISCELLANE DAILY PRN Per Protocol Protocol Miscellaneous Information 1 each 07/27/17 13:57 Potassium Per Protocol MISCELLANE DAILY PRN Per Protocol Protocol Morphine Sulfate 2 mg 07/27/17 13:57 Morphine Sulfate (Inj) IVP Q2H PRN Severe Pain Multivit/Ca Carb/B Cmplx/FA/Prenat 1 each 07/29/17 09:00 Nephrocaps PO DAILY [facility] Mupirocin 1 applic 07/27/17 21:00 07/28/17 09:37 Bactroban Oint NASAL 07/30/17 21:01 1 applic BID [facility] Administration Ondansetron HCl 4 mg 07/27/17 13:57 Zofran IVP Q6HR PRN Nausea And Vomiting Oxycodone HCl 10 mg 07/27/17 13:57 07/28/17 09:38 Oxyir PO 07/28/17 13:58 10 mg Q4H PRN Administration Severe Pain Pantoprazole Sodium 40 mg 07/28/17 09:00 07/28/17 09:35 Protonix IVP 40 mg DAILY [facility] Administration Senna/Docusate Sodium 2 each 07/28/17 21:00 Senokot-S PO HS [facility] Sodium Chloride 10 ml 07/27/17 21:00 07/28/17 09:36 Saline Flush IV 10 ml BID [facility] Administration Intake and Output 07/27/17 07/28/17 07/28/17 22:59 06:59 14:59 Intake Total 1437.771 556.03 347.277 Output Total 877 265 9721 Balance 1127.771 409.03 -1706.723 Intake: IV 296 552 317 CO/CI 60 80 20 LR 200 400 170 Pressure Bag 36 72 27 ceFAZolin 2 gm In Sodium 100 Chloride 0.9% 100 ml @ 100 mls/hr IVPB Q8HR [facility] Rx#:[id number] Intake, IV Titration 1141.771 4.03 30.277 Amount ACETAMINOPHEN IV (For NPO 100 ) 1,000 mg In Empty Bag 1 bag @ 400 mls/hr IVPB Q6HR [facility] Rx#:[id number] Albumin Human 5% 250 ml 500 In Empty Bag 1 bag @ 250 mls/hr IVPB Q1HR PRN Rx#: [id number] DOPamine DRIP 800 mg In 11.11 Dextrose/Water 1 500ml. bag @ 2 MCG/KG/MIN 6.23 mls/hr IV .Q24H [facility] Rx#: [id number] Insulin Regular 100 unit 2.995 4.03 9.527 In Sodium Chloride 0.9% 100 ml @ Per Protocol IV .Q0M [facility] Rx#:[id number] Lactated Ringers 1,000 ml 180 @ 50 mls/hr IV .Q20H [facility] Rx#:[id number] Nitroglycerin-D5w Pmx 50 20.75 mg In Dextrose/Water 1 250ml.bag @ 5 MCG/MIN 1.5 mls/hr IV .Q24H [facility] Rx#: [id number] Potassium Chloride 10 meq 200 Lidocaine 2% Inj 10 mg In Sodium Chloride 0.9% 100 ml @ 100 mls/hr IV Q1HR [facility] Rx#:[id number] Propofol 1,000 mg In 100 47.666 ml @ Titrate IV .Q0M [facility] Rx#:[id number] ceFAZolin 2 gm In Sodium 100 Chloride 0.9% 100 ml @ 100 mls/hr IVPB Q8HR [facility] Rx#:[id number] Output: Chest Tube Drainage 235 107 40 Left Pleural/Mediastinal 60 17 0 Mediastinal 175 90 40 Urine 75 40 14 Other 2000 Other: Voiding Method Indwelling Catheter Indwelling Catheter Indwelling Catheter Weight 88.8 kg 88.8 kg Patient Weight 07/29/17 06:59 Weight 88.8 kg 07/28/17 04:00 07/28/17 04:00 EKG Interpretations (text) Normal sinus rhythm without acute ST-T wave changes Assessment and Plan Plan: CAD status post CABG postop day #1 Patient is doing well and remains in sinus rhythm stable hemodynamically.
[2017-07-28] MEDS ORDERED: MAGNESIUM HYDROXIDE 2,400 MG/10 ML CUP PO PRN (13:59)
[2017-07-28] MEDS ORDERED: BISACODYL 10 MG SUPP RECTAL PRN (13:59)
[2017-07-28] MEDS ORDERED: IPRATROPIUM-ALBUTEROL 3 ML NEB INHALATION PRN (14:00)
[2017-07-28 14:07] LABS: Glucose,Whole Blood 119 mg/dL (75-99)
[2017-07-28] MEDS: CLEVIDIPINE BUTYRATE 25 MG in EMPTY BAG 1 BAG IV SCH (14:11)
[2017-07-28] MEDS: NITROGLYCERIN-D5W PMX 50 MG in DEXTROSE/WATER 1 250ML.BAG IV SCH (14:11)
[2017-07-28 15:37] LABS: Glucose,Whole Blood 104 mg/dL (75-99)
[2017-07-28] MEDS: DOPamine DRIP 800 MG in DEXTROSE/WATER 1 500ML.BAG IV SCH (15:43)
[2017-07-28 16:48] LABS: Glucose,Whole Blood 108 mg/dL (75-99)
[2017-07-28 17:39] LABS: Iron <10 ug/dL (37-170)
[2017-07-28 17:48] LABS: % Iron Saturation <6.9 % (20-50); Total Iron Binding Capacity 145 ug/dL (265-497)
[2017-07-28] MEDS ORDERED: DARBEPOETIN ALFA 40 MCG/0.4 ML SYRINGE SQ SCH (18:00)
[2017-07-28] MEDS: FERROUS SULFATE 325 MG TAB PO SCH (18:09)
[2017-07-28 18:16] LABS: Glucose,Whole Blood 120 mg/dL (75-99)
[2017-07-28 19:05] LABS: Glucose,Whole Blood 134 mg/dL (75-99)
[2017-07-28 20:08] LABS: Glucose,Whole Blood 138 mg/dL (75-99)
[2017-07-28] MEDS: SENNOSIDES-DOCUSATE SODIUM 1 EACH TAB PO SCH (20:49)
[2017-07-28 21:00] LABS: Glucose,Whole Blood 123 mg/dL (75-99)
[2017-07-28 22:07] LABS: Glucose,Whole Blood 116 mg/dL (75-99)
[2017-07-28 23:00] LABS: Glucose,Whole Blood 110 mg/dL (75-99)
[2017-07-29 00:05] LABS: Glucose,Whole Blood 114 mg/dL (75-99)
[2017-07-29] MEDS: HEPARIN SODIUM,PORCINE 5,000 UNIT/ML 1 ML VIAL SQ SCH ×4 (00:22→23:25)
[2017-07-29 01:07] LABS: Glucose,Whole Blood 119 mg/dL (75-99)
[2017-07-29 02:14] LABS: Glucose,Whole Blood 129 mg/dL (75-99)
[2017-07-29 02:56] LABS: Glucose,Whole Blood 120 mg/dL (75-99)
[2017-07-29] MEDS: IPRATROPIUM-ALBUTEROL 3 ML NEB INHALATION SCH (04:06)
[2017-07-29 04:09] LABS: Glucose,Whole Blood 127 mg/dL (75-99)
[2017-07-29 04:45] LABS: Basophils % (A) 0 %; CH 31.6; CHCM 33.1; Eosinophils # (A) 0.4 k/uL (0-0.7); Eosinophils % (A) 4 %; HCT 24.1 % (34.0-46.0); HDW 2.93; HGB 7.6 gm/dL (11.4-16.0); Luc # (Auto) 0.21; Luc % (Auto) 2; Lymphocytes # (A) 1.2 k/uL (1.0-4.8); Lymphocytes % (A) 12 %; MCH 30.4 pg (25.0-35.0); MCHC 31.7 g/dL (31.0-37.0); Mean Platelet Volume 10.5; Monocytes # (A) 0.5 k/uL (0-1.0); Monocytes % (A) 5 %; Neutrophils # (A) 7.5 k/uL (1.3-7.7); Neutrophils % (A) 77 %; RBC 2.51 m/uL (3.80-5.40); RDW 14.9 % (11.5-15.5); WBC 9.8 k/uL (3.8-10.6); WBC (Perox) 9.62
[2017-07-29 04:57] LABS: Ionized Calcium 5.2 mg/dL (4.5-5.3)
[2017-07-29 05:04] LABS: Calcium 9.4 mg/dL (8.4-10.2); Total Bilirubin 0.2 mg/dL (0.2-1.3); Total Protein 5.3 g/dL (6.3-8.2)
[2017-07-29 06:47] LABS: Glucose,Whole Blood 116 mg/dL (75-99)
[2017-07-29] MEDS: LACTATED RINGERS 1,000 ML IV SCH (06:53)
[2017-07-29 07:55] LABS: Glucose,Whole Blood 120 mg/dL (75-99)
--- NOTE | 2017-07-29 08:01 | XR ---
EXAMINATION TYPE: XR chest 1V portable DATE OF EXAM: 07/29/2017 HISTORY: post op CABG. REFERENCE: Previous study dated 07/28/2017. FINDINGS: There has been a midline sternotomy. The patient's [place] catheter has been removed. The heart is enlarged. There are bilateral effusions. There is bibasilar atelectasis, worse on the le ft than the right. The patient's left pleural drain has been removed. IMPRESSION: CONTINUING POSTOPERATIVE CHANGE.
[2017-07-29 08:55] LABS: Glucose,Whole Blood 122 mg/dL (75-99)
[2017-07-29] MEDS: ATORVASTATIN 40 MG TAB PO SCH (08:55)
[2017-07-29] MEDS: METOPROLOL TARTRATE 12.5 MG TAB PO SCH (08:55)
[2017-07-29] MEDS: MUPIROCIN 2% OINT 22 GM TUBE NASAL SCH ×2 (08:55→20:06)
[2017-07-29] MEDS: CALCIUM ACETATE 667 MG CAP PO SCH ×3 (08:55→19:28)
[2017-07-29] MEDS: CITALOPRAM HYDROBROMIDE 20 MG TAB PO SCH (08:55)
[2017-07-29] MEDS: PANTOPRAZOLE 40 MG/10 ML VIAL IVP SCH (08:55)
[2017-07-29] MEDS: ASPIRIN 325 MG TAB PO SCH (08:56)
[2017-07-29] MEDS: CLOPIDOGREL 75 MG TAB PO SCH (08:56)
[2017-07-29] MEDS: FERROUS SULFATE 325 MG TAB PO SCH ×2 (08:56→19:28)
[2017-07-29] MEDS: FOLIC ACID-VIT B COMPLEX-VIT C 1 CAP PO SCH (08:58)
[2017-07-29] MEDS: CYANOCOBALAMIN 500 MCG TAB PO SCH (08:58)
[2017-07-29] MEDS: CHOLECALCIFEROL 1,000 UNIT TAB PO SCH (08:58)
--- NOTE | 2017-07-29 09:18 | P.PN ---
Subjective Principal diagnosis: Symptomatic multivessel coronary artery disease. History of non-ST elevation myocardial infarction, history of coronary artery disease with previously placed stents. History of anemia of chronic disease. History of congestive heart failure. End stage renal disease. Hyperlipidemia. POD #2, off-pump coronary artery bypass grafting 3 with left internal mammary artery to the left anterior descending coronary artery, a reverse greater saphenous vein graft to his obtuse marginal coronary artery and to his posterior descending coronary artery. Endovascular vein harvest of her left greater saphenous vein, intraoperative epi-aortic ultrasound and transesophageal echocardiogram by anesthesia. Patient is awake and alert, oriented 3. She is sitting up to the bedside chair. No acute distress. She rates her pain currently on the pain scale at 3 out of 10 to her chest tube insertion sites. Chest tubes removed yesterday 06/2017. Objective - Vital Signs Vital signs: Vital Signs Temp 97.6 F 07/29/17 04:00 Pulse 80 07/29/17 07:00 Resp 11 L 07/29/17 07:00 BP 103/47 07/29/17 02:00 Pulse Ox 97 07/29/17 07:00 Intake & Output 07/28/17 07/29/17 07/29/17 18:59 06:59 18:59 Intake Total 557.277 415.048 36 Output Total 2059 Balance -1501.723 415.048 36 Weight 88.8 kg 84 kg Intake: IV 527 393 36 CO/CI 20 LR 380 360 30 Pressure Bag 27 33 6 ceFAZolin 2 gm In Sodium 100 Chloride 0.9% 100 ml @ 100 mls/hr IVPB Q8HR JON[facility] Rx#:[id number] Intake, IV Titration 30.277 22.048 Amount Insulin Regular 100 unit 9.527 22.048 In Sodium Chloride 0.9% 100 ml @ Per Protocol IV .Q0M JONH Rx#:[id number] Nitroglycerin-D5w Pmx 50 20.75 mg In Dextrose/Water 1 250ml.bag @ 5 MCG/MIN 1.5 mls/hr IV .Q24H JONH Rx#: [id number] Output: Chest Tube Drainage 40 Left Pleural/Mediastinal 0 Mediastinal 40 Urine 19 Other 2000 Other: Voiding Method Indwelling Catheter # Voids 0 ABP, PAP, CO, CI - Last Documented Arterial Blood Pressure 127/30 Pulmonary Artery Pressure 18/5 Cardiac Output 4.3 Cardiac Index 2.3 - Constitutional General appearance: Present: cooperative, no acute distress, obese - EENT Eyes: Present: PERRLA, normal appearance ENT: Present: hearing grossly normal - Neck Details: No JVD, right IJ Cordis in place and connected to continuous CVP monitoring. Current CVP pressure is 6. - Respiratory Details: Lung sounds are essentially clear throughout, diminished to her bilateral bases. Respirations are symmetrical and nonlabored. She is achieving 750 mL on her incentive spirometry. Oxygen saturations are 98% on 2 L nasal cannula. - Cardiovascular Details: Regular rhythm and rate. S1 and S2 present, negative for S3, gallop or murmur. Sternum is stable. Bedside telemetry showing normal sinus rhythm heart rate 72. No edema present. Heart hugger in place and she is demonstrating appropriate use. Knee-high MAAME hose and sequential compression devices in place to her bilateral lower extremities. - Gastrointestinal Gastrointestinal Comment(s): Abdomen is soft, nontender and nondistended. Active bowel sounds all 4 abdominal quadrants. She is tolerating oral intake. - Genitourinary Genitourinary Comment(s): AV fistula to her left upper arm with good thrill and bruit. She received dialysis yesterday with 2000 mL of fluid removed. - Integumentary Integumentary Comment(s): Midline sternal incision clean and dry and well approximated. Dermabond dressing clean dry and intact. Left leg EVH harvest site incision clean dry and well approximated. No drainage noted. - Neurologic Neurologic Comment(s): No focal deficits. Neurologic: Present: CNII-XII intact - Musculoskeletal Musculoskeletal: Present: generalized weakness, strength equal bilaterally - Psychiatric Psychiatric: Present: A&O x's 3, appropriate affect, intact judgment & insight - Allied health notes Allied health notes reviewed: nursing - Labs CBC & Chem 7: 07/29/17 04:30 07/29/17 04:30 Labs: Abnormal Lab Results - Last 24 Hours (Table) 07/27/17 07/28/17 07/28/17 Range/Units 14:00 04:00 04:00 RBC (3.80-5.40) m/uL Hgb (11.4-16.0) gm/dL Hct (34.0-46.0) % Plt Count (150-450) k/uL Creatinine (0.52-1.04) mg/dL Glucose (74-99) mg/dL POC Glucose (mg/dL) (75-99) mg/dL Hemoglobin A1c 9.0 H (4.2-6.1) % Phosphorus 5.1 H (2.5-4.5) mg/dL Iron <10 L (37-170) ug/dL TIBC 145 L (265-497) ug/dL % Saturation <6.9 L (20-50) % AST (14-36) U/L Total Protein (6.3-8.2) g/dL Albumin (3.5-5.0) g/dL 07/28/17 07/28/17 07/28/17 Range/Units 10:16 11:07 13:16 RBC (3.80-5.40) m/uL Hgb (11.4-16.0) gm/dL Hct (34.0-46.0) % Plt Count (150-450) k/uL Creatinine (0.52-1.04) mg/dL Glucose (74-99) mg/dL POC Glucose (mg/dL) 140 H 116 H 118 H (75-99) mg/dL Hemoglobin A1c (4.2-6.1) % Phosphorus (2.5-4.5) mg/dL Iron (37-170) ug/dL TIBC (265-497) ug/dL % Saturation (20-50) % AST (14-36) U/L Total Protein (6.3-8.2) g/dL Albumin (3.5-5.0) g/dL 07/28/17 07/28/17 07/28/17 Range/Units 14:06 15:34 16:47 RBC (3.80-5.40) m/uL Hgb (11.4-16.0) gm/dL Hct (34.0-46.0) % Plt Count (150-450) k/uL Creatinine (0.52-1.04) mg/dL Glucose (74-99) mg/dL POC Glucose (mg/dL) 119 H 104 H 108 H (75-99) mg/dL Hemoglobin A1c (4.2-6.1) % Phosphorus (2.5-4.5) mg/dL Iron (37-170) ug/dL TIBC (265-497) ug/dL % Saturation (20-50) % AST (14-36) U/L Total Protein (6.3-8.2) g/dL Albumin (3.5-5.0) g/dL 07/28/17 07/28/17 07/28/17 Range/Units 18:15 19:03 20:05 RBC (3.80-5.40) m/uL Hgb (11.4-16.0) gm/dL Hct (34.0-46.0) % Plt Count (150-450) k/uL Creatinine (0.52-1.04) mg/dL Glucose (74-99) mg/dL POC Glucose (mg/dL) 120 H 134 H 138 H (75-99) mg/dL Hemoglobin A1c (4.2-6.1) % Phosphorus (2.5-4.5) mg/dL Iron (37-170) ug/dL TIBC (265-497) ug/dL % Saturation (20-50) % AST (14-36) U/L Total Protein (6.3-8.2) g/dL Albumin (3.5-5.0) g/dL 07/28/17 07/28/17 07/28/17 Range/Units 20:58 22:06 22:59 RBC (3.80-5.40) m/uL Hgb (11.4-16.0) gm/dL Hct (34.0-46.0) % Plt Count (150-450) k/uL Creatinine (0.52-1.04) mg/dL Glucose (74-99) mg/dL POC Glucose (mg/dL) 123 H 116 H 110 H (75-99) mg/dL Hemoglobin A1c (4.2-6.1) % Phosphorus (2.5-4.5) mg/dL Iron (37-170) ug/dL TIBC (265-497) ug/dL % Saturation (20-50) % AST (14-36) U/L Total Protein (6.3-8.2) g/dL Albumin (3.5-5.0) g/dL 07/29/17 07/29/17 07/29/17 Range/Units 00:02 01:05 02:12 RBC (3.80-5.40) m/uL Hgb (11.4-16.0) gm/dL Hct (34.0-46.0) % Plt Count (150-450) k/uL Creatinine (0.52-1.04) mg/dL Glucose (74-99) mg/dL POC Glucose (mg/dL) 114 H 119 H 129 H (75-99) mg/dL Hemoglobin A1c (4.2-6.1) % Phosphorus (2.5-4.5) mg/dL Iron (37-170) ug/dL TIBC (265-497) ug/dL % Saturation (20-50) % AST (14-36) U/L Total Protein (6.3-8.2) g/dL Albumin (3.5-5.0) g/dL 07/29/17 07/29/17 07/29/17 Range/Units 02:54 04:07 04:30 RBC (3.80-5.40) m/uL Hgb (11.4-16.0) gm/dL Hct (34.0-46.0) % Plt Count (150-450) k/uL Creatinine 3.90 H (0.52-1.04) mg/dL Glucose 116 H (74-99) mg/dL POC Glucose (mg/dL) 120 H 127 H (75-99) mg/dL Hemoglobin A1c (4.2-6.1) % Phosphorus (2.5-4.5) mg/dL Iron (37-170) ug/dL TIBC (265-497) ug/dL % Saturation (20-50) % AST 37 H (14-36) U/L Total Protein 5.3 L (6.3-8.2) g/dL Albumin 3.3 L (3.5-5.0) g/dL 07/29/17 07/29/17 07/29/17 Range/Units 04:30 06:46 07:54 RBC 2.51 L (3.80-5.40) m/uL Hgb 7.6 L (11.4-16.0) gm/dL Hct 24.1 L (34.0-46.0) % Plt Count 130 L (150-450) k/uL Creatinine (0.52-1.04) mg/dL Glucose (74-99) mg/dL POC Glucose (mg/dL) 116 H 120 H (75-99) mg/dL Hemoglobin A1c (4.2-6.1) % Phosphorus (2.5-4.5) mg/dL Iron (37-170) ug/dL TIBC (265-497) ug/dL % Saturation (20-50) % AST (14-36) U/L Total Protein (6.3-8.2) g/dL Albumin (3.5-5.0) g/dL 07/29/17 Range/Units 08:52 RBC (3.80-5.40) m/uL Hgb (11.4-16.0) gm/dL Hct (34.0-46.0) % Plt Count (150-450) k/uL Creatinine (0.52-1.04) mg/dL Glucose (74-99) mg/dL POC Glucose (mg/dL) 122 H (75-99) mg/dL Hemoglobin A1c (4.2-6.1) % Phosphorus (2.5-4.5) mg/dL Iron (37-170) ug/dL TIBC (265-497) ug/dL % Saturation (20-50) % AST (14-36) U/L Total Protein (6.3-8.2) g/dL Albumin (3.5-5.0) g/dL - Imaging and Cardiology Chest x-ray: report reviewed, image reviewed Assessment and Plan (1) History of myocardial infarction in adulthood Status: Acute (2) Anemia of chronic disease Status: Acute (3) Congestive heart failure Status: Acute (4) Coronary artery disease Status: Acute (5) Diabetes Status: Acute (6) ESRD (end stage renal disease) Status: Acute (7) Hyperlipemia Status: Acute (8) Left carotid bruit Status: Acute (9) Status post coronary artery bypass grafting Status: Acute Plan: 1. Continue aspirin, statin, heparin subcu, beta tone. Will maximize beta tone therapy as tolerated. 2. Encourage incentive spirometer use every hour while awake. 3. Pulmonary management per Dr. Smith's recommendations. 4. Patient will have dialysis again on 07/31/2017 per nephrology. 5. GI/DVT prophylaxis. 6. Insulin management per primary care service. 7. Will monitor daily labs and chest x-rays. 8. Physical therapy consulted, increase activity as tolerated. 9. Patient will be transferred to [address] [place] [address] today. 10. Further recommendations as patient progresses. Time with Patient: Greater than 30
--- NOTE | 2017-07-29 09:55 | P.PN ---
Subjective Patient is seen for follow-up for end-stage renal disease. She status post coronary artery bypass surgery 3. Today's postop day #2. Patient is doing very well. She was dialyzed yesterday with about 2 L of ultrafiltration with dialysis. Her chest tubes have been removed there is no ongoing bleeding. Hemoglobin is noted to be slightly low at 7.6. Patient is not hypotensive. She does not appear to be significantly short of breath and she is not complaining of any significant specific chest pain. Objective - Vital Signs Vital signs: Vital Signs Temp 97.6 F 07/29/17 04:00 Pulse 80 07/29/17 07:00 Resp 11 L 07/29/17 07:00 BP 103/47 07/29/17 02:00 Pulse Ox 97 07/29/17 07:00 Intake & Output 07/28/17 07/29/17 07/29/17 18:59 06:59 18:59 Intake Total 557.277 415.048 36 Output Total 2059 Balance -1501.723 415.048 36 Weight 88.8 kg 84 kg Intake: IV 527 393 36 CO/CI 20 LR 380 360 30 Pressure Bag 27 33 6 ceFAZolin 2 gm In Sodium 100 Chloride 0.9% 100 ml @ 100 mls/hr IVPB Q8HR [facility] Rx#:[id number] Intake, IV Titration 30.277 22.048 Amount Insulin Regular 100 unit 9.527 22.048 In Sodium Chloride 0.9% 100 ml @ Per Protocol IV .Q0M JON[facility] Rx#:[id number] Nitroglycerin-D5w Pmx 50 20.75 mg In Dextrose/Water 1 250ml.bag @ 5 MCG/MIN 1.5 mls/hr IV .Q24H JON[facility] Rx#: [id number] Output: Chest Tube Drainage 40 Left Pleural/Mediastinal 0 Mediastinal 40 Urine 19 Other 2000 Other: Voiding Method Indwelling Catheter # Voids 0 ABP, PAP, CO, CI - Last Documented Arterial Blood Pressure 127/30 Pulmonary Artery Pressure 18/5 Cardiac Output 4.3 Cardiac Index 2.3 - Exam On examination blood pressure is 127/30 heart rate 80/m. Patient is afebrile Examination of the heart S1 and S2 Examination lungs bilateral breath sounds are heard decreased breath sounds bases Abdomen is soft nontender Examination lower extremities shows no significant edema , extremities are wrapped. OPERATOR MAINTAINER exam is grossly intact. - Labs CBC & Chem 7: 09/09/17 04:30 07/29/17 04:30 Labs: Abnormal Lab Results - Last 24 Hours (Table) 07/27/17 07/28/17 07/28/17 Range/Units 14:00 04:00 04:00 RBC (3.80-5.40) m/uL Hgb (11.4-16.0) gm/dL Hct (34.0-46.0) % Plt Count (150-450) k/uL Creatinine (0.52-1.04) mg/dL Glucose (74-99) mg/dL POC Glucose (mg/dL) (75-99) mg/dL Hemoglobin A1c 9.0 H (4.2-6.1) % Phosphorus 5.1 H (2.5-4.5) mg/dL Iron <10 L (37-170) ug/dL TIBC 145 L (265-497) ug/dL % Saturation <6.9 L (20-50) % AST (14-36) U/L Total Protein (6.3-8.2) g/dL Albumin (3.5-5.0) g/dL 07/28/17 07/28/17 07/28/17 Range/Units 10:16 11:07 13:16 RBC (3.80-5.40) m/uL Hgb (11.4-16.0) gm/dL Hct (34.0-46.0) % Plt Count (150-450) k/uL Creatinine (0.52-1.04) mg/dL Glucose (74-99) mg/dL POC Glucose (mg/dL) 140 H 116 H 118 H (75-99) mg/dL Hemoglobin A1c (4.2-6.1) % Phosphorus (2.5-4.5) mg/dL Iron (37-170) ug/dL TIBC (265-497) ug/dL % Saturation (20-50) % AST (14-36) U/L Total Protein (6.3-8.2) g/dL Albumin (3.5-5.0) g/dL 07/28/17 07/28/17 07/28/17 Range/Units 14:06 15:34 16:47 RBC (3.80-5.40) m/uL Hgb (11.4-16.0) gm/dL Hct (34.0-46.0) % Plt Count (150-450) k/uL Creatinine (0.52-1.04) mg/dL Glucose (74-99) mg/dL POC Glucose (mg/dL) 119 H 104 H 108 H (75-99) mg/dL Hemoglobin A1c (4.2-6.1) % Phosphorus (2.5-4.5) mg/dL Iron (37-170) ug/dL TIBC (265-497) ug/dL % Saturation (20-50) % AST (14-36) U/L Total Protein (6.3-8.2) g/dL Albumin (3.5-5.0) g/dL 07/28/17 07/28/17 07/28/17 Range/Units 18:15 19:03 20:05 RBC (3.80-5.40) m/uL Hgb (11.4-16.0) gm/dL Hct (34.0-46.0) % Plt Count (150-450) k/uL Creatinine (0.52-1.04) mg/dL Glucose (74-99) mg/dL POC Glucose (mg/dL) 120 H 134 H 138 H (75-99) mg/dL Hemoglobin A1c (4.2-6.1) % Phosphorus (2.5-4.5) mg/dL Iron (37-170) ug/dL TIBC (265-497) ug/dL % Saturation (20-50) % AST (14-36) U/L Total Protein (6.3-8.2) g/dL Albumin (3.5-5.0) g/dL 07/28/17 07/28/17 07/28/17 Range/Units 20:58 22:06 22:59 RBC (3.80-5.40) m/uL Hgb (11.4-16.0) gm/dL Hct (34.0-46.0) % Plt Count (150-450) k/uL Creatinine (0.52-1.04) mg/dL Glucose (74-99) mg/dL POC Glucose (mg/dL) 123 H 116 H 110 H (75-99) mg/dL Hemoglobin A1c (4.2-6.1) % Phosphorus (2.5-4.5) mg/dL Iron (37-170) ug/dL TIBC (265-497) ug/dL % Saturation (20-50) % AST (14-36) U/L Total Protein (6.3-8.2) g/dL Albumin (3.5-5.0) g/dL 07/29/17 07/29/17 07/29/17 Range/Units 00:02 01:05 02:12 RBC (3.80-5.40) m/uL Hgb (11.4-16.0) gm/dL Hct (34.0-46.0) % Plt Count (150-450) k/uL Creatinine (0.52-1.04) mg/dL Glucose (74-99) mg/dL POC Glucose (mg/dL) 114 H 119 H 129 H (75-99) mg/dL Hemoglobin A1c (4.2-6.1) % Phosphorus (2.5-4.5) mg/dL Iron (37-170) ug/dL TIBC (265-497) ug/dL % Saturation (20-50) % AST (14-36) U/L Total Protein (6.3-8.2) g/dL Albumin (3.5-5.0) g/dL 07/29/17 07/29/17 07/29/17 Range/Units 02:54 04:07 04:30 RBC (3.80-5.40) m/uL Hgb (11.4-16.0) gm/dL Hct (34.0-46.0) % Plt Count (150-450) k/uL Creatinine 3.90 H (0.52-1.04) mg/dL Glucose 116 H (74-99) mg/dL POC Glucose (mg/dL) 120 H 127 H (75-99) mg/dL Hemoglobin A1c (4.2-6.1) % Phosphorus (2.5-4.5) mg/dL Iron (37-170) ug/dL TIBC (265-497) ug/dL % Saturation (20-50) % AST 37 H (14-36) U/L Total Protein 5.3 L (6.3-8.2) g/dL Albumin 3.3 L (3.5-5.0) g/dL 07/29/17 07/29/17 07/29/17 Range/Units 04:30 06:46 07:54 RBC 2.51 L (3.80-5.40) m/uL Hgb 7.6 L (11.4-16.0) gm/dL Hct 24.1 L (34.0-46.0) % Plt Count 130 L (150-450) k/uL Creatinine (0.52-1.04) mg/dL Glucose (74-99) mg/dL POC Glucose (mg/dL) 116 H 120 H (75-99) mg/dL Hemoglobin A1c (4.2-6.1) % Phosphorus (2.5-4.5) mg/dL Iron (37-170) ug/dL TIBC (265-497) ug/dL % Saturation (20-50) % AST (14-36) U/L Total Protein (6.3-8.2) g/dL Albumin (3.5-5.0) g/dL 07/29/17 Range/Units 08:52 RBC (3.80-5.40) m/uL Hgb (11.4-16.0) gm/dL Hct (34.0-46.0) % Plt Count (150-450) k/uL Creatinine (0.52-1.04) mg/dL Glucose (74-99) mg/dL POC Glucose (mg/dL) 122 H (75-99) mg/dL Hemoglobin A1c (4.2-6.1) % Phosphorus (2.5-4.5) mg/dL Iron (37-170) ug/dL TIBC (265-497) ug/dL % Saturation (20-50) % AST (14-36) U/L Total Protein (6.3-8.2) g/dL Albumin (3.5-5.0) g/dL Assessment and Plan Plan: Assessment 1. End-stage renal disease on hemodialysis normally on a Monday schedule. Patient was dialyzed yesterday. We will plan for next treatment on Monday unless she develops fluid overload. 2. Status post coronary artery bypass surgery doing very well 3. Coronary artery disease 4. Anemia postoperatively with underlying anemia of chronic disease Will repeat a hemoglobin this evening and transfuse if less than 7.5 g/dL. Maintained on Aranesp. 5. CK D bone mineral disorder, maintained on PhosLo next Plan Next dialysis on 07/31/2017. Monitor CBC and transfuse if hemoglobin drops further.
--- NOTE | 2017-07-29 10:27 | CONS ---
CONSULTATION DATE OF CONSULTATION: 07/28/2017. REASON FOR CONSULT: End-stage renal disease. HISTORY OF PRESENT ILLNESS: Patient is a 72-year-old female with end-stage renal disease, on hemodialysis on a Monday, , Monday schedule as outpatient. She was admitted to the hospital for coronary artery bypass surgery which was performed on 07/27/2017. Patient is currently doing very well. She has been extubated. She is hemodynamically stable and was actually dialyzed this morning. PAST MEDICAL HISTORY: End-stage renal disease, CKD bone mineral disorder, coronary artery disease, type 2 diabetes, hyperlipidemia, history of NM, peripheral vascular disease. PAST SURGICAL HISTORY: Appendectomy, cholecystectomy, cardiac catheterization with stent placement, tonsillectomy, AV fistula with revision left upper arm. SOCIAL HISTORY: Patient is a former smoker. No history of drug abuse or alcohol abuse. REVIEW OF SYSTEMS: Negative for fever, chills, nausea, vomiting, diarrhea, and no bleeding noted. The patient is currently extubated. MEDICATIONS: Currently the patient is not on any pressors. She is on: 1. Aspirin. 2. Lipitor. 3. PhosLo. 4. Vitamin D3. 5. Quetiapine pain has been discontinued. 6. Plavix. EXAMINATION: Patient is comfortable, awake. She is not in any acute distress. Blood pressure is 114/58, heart rate 70 per minute. She is afebrile. Examination of the heart: S1, S2. Examination of the lungs: Bilateral breath sounds are heard. Abdomen is soft, nontender. Examination lower extremities shows no significant edema. LABS: Serum potassium of 5.0 from today. Hemoglobin was 8.1. ASSESSMENT: 1. End-stage renal disease, on hemodialysis on a Monday, , Monday schedule. The patient was dialyzed this morning and we will plan to dialyze her again on Monday unless she has issues over the weekend. We will try to get her back on her regular schedule on the following Monday. 2. Status post coronary artery bypass surgery. 3. Anemia. Postoperatively will start patient on Aranesp. No active bleeding noted at this time. I will discontinue the oral iron. PLAN: The patient had hemodialysis today. We will plan for dialysis again on Monday unless she has issues with fluid overload or hyperkalemia over the weekend. We will try to get her back on her Monday, , Monday schedule on Monday. I will also start Aranesp and DC the oral iron. We will check iron profile and if it is low, it will be replaced as IV. Thank you for this consultation. NADEEN / WIN: [id number] /
--- NOTE | 2017-07-29 11:14 | P.PN ---
Subjective Principal diagnosis: CAD status post CABG Patient is postop day #2 doing well and remains in sinus rhythm blood pressure is well-controlled she is in the process of being transferred to sixth floor. An optimal medical therapy Objective - Vital Signs Vital signs: Vital Signs Temp 98 F 07/29/17 08:00 Pulse 73 07/29/17 11:00 Resp 11 L 07/29/17 11:00 BP 103/47 07/29/17 02:00 Pulse Ox 99 07/29/17 11:00 Intake & Output 07/28/17 07/29/17 07/29/17 18:59 06:59 18:59 Intake Total 557.277 415.048 126 Output Total 2059 Balance -1501.723 415.048 126 Weight 88.8 kg 84 kg Intake: IV 527 393 126 CO/CI 20 LR 380 360 120 Pressure Bag 27 33 6 ceFAZolin 2 gm In Sodium 100 Chloride 0.9% 100 ml @ 100 mls/hr IVPB Q8HR JON[facility] Rx#:[id number] Intake, IV Titration 30.277 22.048 Amount Insulin Regular 100 unit 9.527 22.048 In Sodium Chloride 0.9% 100 ml @ Per Protocol IV .Q0M JONH Rx#:[id number] Nitroglycerin-D5w Pmx 50 20.75 mg In Dextrose/Water 1 250ml.bag @ 5 MCG/MIN 1.5 mls/hr IV .Q24H JONH Rx#: [id number] Output: Chest Tube Drainage 40 Left Pleural/Mediastinal 0 Mediastinal 40 Urine 19 Other 2000 Other: Voiding Method Indwelling Catheter # Voids 0 ABP, PAP, CO, CI - Last Documented Arterial Blood Pressure 147/32 Pulmonary Artery Pressure 18/5 Cardiac Output 4.3 Cardiac Index 2.3 - Exam Patient is comfortable at rest vital signs are stable there is a jugular venous distention chest exam reveals good air entry bilaterally there are no crackles or rhonchi heart exam reveals first and second heart sounds no gallop abdomen is soft exemption extremities did not reveal any edema per for pulses are felt - Labs CBC & Chem 7: 07/29/17 04:30 07/29/17 04:30 Labs: Abnormal Lab Results - Last 24 Hours (Table) 07/28/17 07/28/17 07/28/17 Range/Units 04:00 04:00 13:16 RBC (3.80-5.40) m/uL Hgb (11.4-16.0) gm/dL Hct (34.0-46.0) % Plt Count (150-450) k/uL Creatinine (0.52-1.04) mg/dL Glucose (74-99) mg/dL POC Glucose (mg/dL) 118 H (75-99) mg/dL Phosphorus 5.1 H (2.5-4.5) mg/dL Iron <10 L (37-170) ug/dL TIBC 145 L (265-497) ug/dL % Saturation <6.9 L (20-50) % AST (14-36) U/L Total Protein (6.3-8.2) g/dL Albumin (3.5-5.0) g/dL 07/28/17 07/28/17 07/28/17 Range/Units 14:06 15:34 16:47 RBC (3.80-5.40) m/uL Hgb (11.4-16.0) gm/dL Hct (34.0-46.0) % Plt Count (150-450) k/uL Creatinine (0.52-1.04) mg/dL Glucose (74-99) mg/dL POC Glucose (mg/dL) 119 H 104 H 108 H (75-99) mg/dL Phosphorus (2.5-4.5) mg/dL Iron (37-170) ug/dL TIBC (265-497) ug/dL % Saturation (20-50) % AST (14-36) U/L Total Protein (6.3-8.2) g/dL Albumin (3.5-5.0) g/dL 07/28/17 07/28/17 07/28/17 Range/Units 18:15 19:03 20:05 RBC (3.80-5.40) m/uL Hgb (11.4-16.0) gm/dL Hct (34.0-46.0) % Plt Count (150-450) k/uL Creatinine (0.52-1.04) mg/dL Glucose (74-99) mg/dL POC Glucose (mg/dL) 120 H 134 H 138 H (75-99) mg/dL Phosphorus (2.5-4.5) mg/dL Iron (37-170) ug/dL TIBC (265-497) ug/dL % Saturation (20-50) % AST (14-36) U/L Total Protein (6.3-8.2) g/dL Albumin (3.5-5.0) g/dL 07/28/17 07/28/17 07/28/17 Range/Units 20:58 22:06 22:59 RBC (3.80-5.40) m/uL Hgb (11.4-16.0) gm/dL Hct (34.0-46.0) % Plt Count (150-450) k/uL Creatinine (0.52-1.04) mg/dL Glucose (74-99) mg/dL POC Glucose (mg/dL) 123 H 116 H 110 H (75-99) mg/dL Phosphorus (2.5-4.5) mg/dL Iron (37-170) ug/dL TIBC (265-497) ug/dL % Saturation (20-50) % AST (14-36) U/L Total Protein (6.3-8.2) g/dL Albumin (3.5-5.0) g/dL 07/29/17 07/29/17 07/29/17 Range/Units 00:02 01:05 02:12 RBC (3.80-5.40) m/uL Hgb (11.4-16.0) gm/dL Hct (34.0-46.0) % Plt Count (150-450) k/uL Creatinine (0.52-1.04) mg/dL Glucose (74-99) mg/dL POC Glucose (mg/dL) 114 H 119 H 129 H (75-99) mg/dL Phosphorus (2.5-4.5) mg/dL Iron (37-170) ug/dL TIBC (265-497) ug/dL % Saturation (20-50) % AST (14-36) U/L Total Protein (6.3-8.2) g/dL Albumin (3.5-5.0) g/dL 07/29/17 07/29/17 07/29/17 Range/Units 02:54 04:07 04:30 RBC (3.80-5.40) m/uL Hgb (11.4-16.0) gm/dL Hct (34.0-46.0) % Plt Count (150-450) k/uL Creatinine 3.90 H (0.52-1.04) mg/dL Glucose 116 H (74-99) mg/dL POC Glucose (mg/dL) 120 H 127 H (75-99) mg/dL Phosphorus (2.5-4.5) mg/dL Iron (37-170) ug/dL TIBC (265-497) ug/dL % Saturation (20-50) % AST 37 H (14-36) U/L Total Protein 5.3 L (6.3-8.2) g/dL Albumin 3.3 L (3.5-5.0) g/dL 07/29/17 07/29/17 07/29/17 Range/Units 04:30 06:46 07:54 RBC 2.51 L (3.80-5.40) m/uL Hgb 7.6 L (11.4-16.0) gm/dL Hct 24.1 L (34.0-46.0) % Plt Count 130 L (150-450) k/uL Creatinine (0.52-1.04) mg/dL Glucose (74-99) mg/dL POC Glucose (mg/dL) 116 H 120 H (75-99) mg/dL Phosphorus (2.5-4.5) mg/dL Iron (37-170) ug/dL TIBC (265-497) ug/dL % Saturation (20-50) % AST (14-36) U/L Total Protein (6.3-8.2) g/dL Albumin (3.5-5.0) g/dL 07/29/17 Range/Units 08:52 RBC (3.80-5.40) m/uL Hgb (11.4-16.0) gm/dL Hct (34.0-46.0) % Plt Count (150-450) k/uL Creatinine (0.52-1.04) mg/dL Glucose (74-99) mg/dL POC Glucose (mg/dL) 122 H (75-99) mg/dL Phosphorus (2.5-4.5) mg/dL Iron (37-170) ug/dL TIBC (265-497) ug/dL % Saturation (20-50) % AST (14-36) U/L Total Protein (6.3-8.2) g/dL Albumin (3.5-5.0) g/dL Assessment and Plan Plan: CAD status post CABG Patient is doing well free of symptoms reviewed her medications will continue the aspirin and statins beta blockers
[2017-07-29 11:25] LABS: Glucose,Whole Blood 136 mg/dL (75-99)
--- NOTE | 2017-07-29 12:19 | P.PN ---
Subjective Principal diagnosis: Status post CABG for multivessel coronary artery disease, postoperative day # 2 Seen today on 07/29/20.7, This is a 72-year-old female with history of renal failure, on hemodialysis, postoperative day #2, patient underwent off pump coronary artery bypass grafting with BARROS to LAD, reverse greater saphenous vein graft to the obtuse marginal coronary artery and to the posterior descending coronary artery. Patient was seen postoperatively on consultation, and around midnight patient was extubated uneventfully. She doing well today, no plans for dialysis today. Objective - Vital Signs Vital signs: Vital Signs Temp 98 F 07/29/17 08:00 Pulse 73 07/29/17 11:00 Resp 11 L 07/29/17 11:00 BP 103/47 07/29/17 02:00 Pulse Ox 99 07/29/17 11:00 Intake & Output 07/28/17 07/29/17 07/29/17 18:59 06:59 18:59 Intake Total 557.277 415.048 126 Output Total 2059 Balance -1501.723 415.048 126 Weight 88.8 kg 84 kg Intake: IV 527 393 126 CO/CI 20 LR 380 360 120 Pressure Bag 27 33 6 ceFAZolin 2 gm In Sodium 100 Chloride 0.9% 100 ml @ 100 mls/hr IVPB Q8HR JONH Rx#:[id number] Intake, IV Titration 30.277 22.048 Amount Insulin Regular 100 unit 9.527 22.048 In Sodium Chloride 0.9% 100 ml @ Per Protocol IV .Q0M JONH Rx#:[id number] Nitroglycerin-D5w Pmx 50 20.75 mg In Dextrose/Water 1 250ml.bag @ 5 MCG/MIN 1.5 mls/hr IV .Q24H JONH Rx#: [id number] Output: Chest Tube Drainage 40 Left Pleural/Mediastinal 0 Mediastinal 40 Urine 19 Other 2000 Other: Voiding Method Indwelling Catheter # Voids 0 ABP, PAP, CO, CI - Last Documented Arterial Blood Pressure 147/32 Pulmonary Artery Pressure 18/5 Cardiac Output 4.3 Cardiac Index 2.3 - Exam Physical Exam: Revealed a 72-year-old female in no distress. HEENT:[Neck is supple.] [No neck masses.] [No thyromegaly.] [No JVD.] Dry mucous membranes were noted. Chest: [Diminished breath sounds bilaterally, no crackles, no rhonchi, no wheezes] Cardiac Exam: [Normal S1 and S2, no S3 gallop, no murmur.] Sternum seems to be stable. Abdomen: [Soft, nontender, no megaly, no rebound, no guarding, normal bowel sounds.] Extremities: [No clubbing, no edema, no cyanosis.]. Left arm AV fistula is noted with good thrill and bruit. Neurological Exam: [No focal neurologic deficit.] - Labs CBC & Chem 7: 07/29/17 04:30 07/29/17 04:30 Labs: Abnormal Lab Results - Last 24 Hours (Table) 07/28/17 07/28/17 07/28/17 Range/Units 04:00 04:00 13:16 RBC (3.80-5.40) m/uL Hgb (11.4-16.0) gm/dL Hct (34.0-46.0) % Plt Count (150-450) k/uL Creatinine (0.52-1.04) mg/dL Glucose (74-99) mg/dL POC Glucose (mg/dL) 118 H (75-99) mg/dL Phosphorus 5.1 H (2.5-4.5) mg/dL Iron <10 L (37-170) ug/dL TIBC 145 L (265-497) ug/dL % Saturation <6.9 L (20-50) % AST (14-36) U/L Total Protein (6.3-8.2) g/dL Albumin (3.5-5.0) g/dL 07/28/17 07/28/17 07/28/17 Range/Units 14:06 15:34 16:47 RBC (3.80-5.40) m/uL Hgb (11.4-16.0) gm/dL Hct (34.0-46.0) % Plt Count (150-450) k/uL Creatinine (0.52-1.04) mg/dL Glucose (74-99) mg/dL POC Glucose (mg/dL) 119 H 104 H 108 H (75-99) mg/dL Phosphorus (2.5-4.5) mg/dL Iron (37-170) ug/dL TIBC (265-497) ug/dL % Saturation (20-50) % AST (14-36) U/L Total Protein (6.3-8.2) g/dL Albumin (3.5-5.0) g/dL 07/28/17 07/28/17 07/28/17 Range/Units 18:15 19:03 20:05 RBC (3.80-5.40) m/uL Hgb (11.4-16.0) gm/dL Hct (34.0-46.0) % Plt Count (150-450) k/uL Creatinine (0.52-1.04) mg/dL Glucose (74-99) mg/dL POC Glucose (mg/dL) 120 H 134 H 138 H (75-99) mg/dL Phosphorus (2.5-4.5) mg/dL Iron (37-170) ug/dL TIBC (265-497) ug/dL % Saturation (20-50) % AST (14-36) U/L Total Protein (6.3-8.2) g/dL Albumin (3.5-5.0) g/dL 07/28/17 07/28/17 07/28/17 Range/Units 20:58 22:06 22:59 RBC (3.80-5.40) m/uL Hgb (11.4-16.0) gm/dL Hct (34.0-46.0) % Plt Count (150-450) k/uL Creatinine (0.52-1.04) mg/dL Glucose (74-99) mg/dL POC Glucose (mg/dL) 123 H 116 H 110 H (75-99) mg/dL Phosphorus (2.5-4.5) mg/dL Iron (37-170) ug/dL TIBC (265-497) ug/dL % Saturation (20-50) % AST (14-36) U/L Total Protein (6.3-8.2) g/dL Albumin (3.5-5.0) g/dL 07/29/17 07/29/17 07/29/17 Range/Units 00:02 01:05 02:12 RBC (3.80-5.40) m/uL Hgb (11.4-16.0) gm/dL Hct (34.0-46.0) % Plt Count (150-450) k/uL Creatinine (0.52-1.04) mg/dL Glucose (74-99) mg/dL POC Glucose (mg/dL) 114 H 119 H 129 H (75-99) mg/dL Phosphorus (2.5-4.5) mg/dL Iron (37-170) ug/dL TIBC (265-497) ug/dL % Saturation (20-50) % AST (14-36) U/L Total Protein (6.3-8.2) g/dL Albumin (3.5-5.0) g/dL 07/29/17 07/29/17 07/29/17 Range/Units 02:54 04:07 04:30 RBC (3.80-5.40) m/uL Hgb (11.4-16.0) gm/dL Hct (34.0-46.0) % Plt Count (150-450) k/uL Creatinine 3.90 H (0.52-1.04) mg/dL Glucose 116 H (74-99) mg/dL POC Glucose (mg/dL) 120 H 127 H (75-99) mg/dL Phosphorus (2.5-4.5) mg/dL Iron (37-170) ug/dL TIBC (265-497) ug/dL % Saturation (20-50) % AST 37 H (14-36) U/L Total Protein 5.3 L (6.3-8.2) g/dL Albumin 3.3 L (3.5-5.0) g/dL 07/29/17 07/29/17 07/29/17 Range/Units 04:30 06:46 07:54 RBC 2.51 L (3.80-5.40) m/uL Hgb 7.6 L (11.4-16.0) gm/dL Hct 24.1 L (34.0-46.0) % Plt Count 130 L (150-450) k/uL Creatinine (0.52-1.04) mg/dL Glucose (74-99) mg/dL POC Glucose (mg/dL) 116 H 120 H (75-99) mg/dL Phosphorus (2.5-4.5) mg/dL Iron (37-170) ug/dL TIBC (265-497) ug/dL % Saturation (20-50) % AST (14-36) U/L Total Protein (6.3-8.2) g/dL Albumin (3.5-5.0) g/dL 07/29/17 07/29/17 Range/Units 08:52 11:15 RBC (3.80-5.40) m/uL Hgb (11.4-16.0) gm/dL Hct (34.0-46.0) % Plt Count (150-450) k/uL Creatinine (0.52-1.04) mg/dL Glucose (74-99) mg/dL POC Glucose (mg/dL) 122 H 136 H (75-99) mg/dL Phosphorus (2.5-4.5) mg/dL Iron (37-170) ug/dL TIBC (265-497) ug/dL % Saturation (20-50) % AST (14-36) U/L Total Protein (6.3-8.2) g/dL Albumin (3.5-5.0) g/dL Assessment and Plan Plan: Impression: 1 status post CABG, postoperative day #2, 2 history of coronary artery disease/triple-vessel coronary artery disease, recent non-ST elevation myocardial infarction. 3 history of congestive heart failure. 4 history of end-stage renal disease on hemodialysis. 5 history of type 2 diabetes 6 history of mixed hyperlipidemia. Recommendation: Continue present treatment plan including dialysis, incentive spirometry, bronchodilators, early ambulation, we'll continue to follow. Time with Patient: Less than 30
[2017-07-29 12:47] LABS: Glucose,Whole Blood 112 mg/dL (75-99)
[2017-07-29] MEDS: INSULIN GLARGINE 100 UNIT/ML 10 ML VIAL SQ SCH (13:59)
[2017-07-29] MEDS: INSULIN LISPRO (humaLOG) 300 UNIT/3 ML VIAL SQ SCH ×3 (13:59→22:31)
[2017-07-29] MEDS: HYDROcodone/APAP 5-325MG 1 EACH TAB PO PRN (13:59)
[2017-07-29] MEDS: CLEVIDIPINE BUTYRATE 25 MG in EMPTY BAG 1 BAG IV SCH (14:03)
[2017-07-29] MEDS: NITROGLYCERIN-D5W PMX 50 MG in DEXTROSE/WATER 1 250ML.BAG IV SCH (14:04)
[2017-07-29 16:53] LABS: Glucose,Whole Blood 130 mg/dL (75-99)
--- NOTE | 2017-07-29 18:29 | PN ---
PROGRESS NOTE DATE OF SERVICE: 07/29/2017 This is a progress note. I am covering for Dr. Malone. INTERVAL HISTORY: This 72-year-old woman who underwent multivessel coronary artery disease and CAD /CABG being closely monitored at this time. The patient also receiving insulin drip at 0.5 to 1 units/hour. The patient is taking 40 units of Lantus at home with p.o. intake appears to be poor, insulin chest tubes are still in place. PAST MEDICAL HISTORY: Reviewed. REVIEW OF SYSTEMS: Cardio system: As mentioned earlier. GI: No nausea or vomiting. : No dysuria. Central nervous system: No numbness, weakness. CURRENT MEDICATIONS: Reviewed and include: 1. [place] 5 mg 2 tablets q.4h p.r.n. 2. DuoNeb q.i.d. and p.r.n. 3. Xanax 0.25 b.i.d. 4. Aspirin 320 mg daily. 5. Lipitor 40 mg daily. 6. Cepacol lozenges. 7. Dulcolax 10 mg a day. 8. PhosLo 1334 p.o. t.i.d. 9. Vitamin D3 1000 daily. 10.Celexa 20 mg daily. 12.Plavix 75 a day. 13.Vitamin B12. 15.Dopamine drip. 16.Heparin. 17.Lantus 20 units subcu p.r.n. started today. 18.Apresoline p.r.n. PHYSICAL EXAM: Patient is alert and oriented times three. Pulse 73, blood pressure 140/70, respiration 11, temperature normal, pulse ox 99% on 3 L. HEENT: Conjunctivae normal. Neck: No jugular venous distention. Cardiovascular: S1, S2 muffled. Respiratory: Breath sounds diminished at the bases. A few scattered rhonchi and crackles. ABDOMEN: Soft, nontender. Legs are no swelling. No edema. central nervous system: No focal deficits. Patient is status post surgery. LABS: Hemoglobin 7.6, and creatinine is 3.90. The patient is receiving hemodialysis. ASSESSMENT: 1. Status post coronary artery disease, coronary artery bypass grafting. 2. Diabetes type 2. 3. Chronic renal failure stage 5 on chronic kidney disease. On hemodialysis. 4. History of recent non ST-segment myocardial infarction. 5. Hyperlipidemia. RECOMMENDATIONS AND DISCUSSION: In this 72-year-old woman who presented with multiple complex medical issues at this time I recommend to continue current treatment, continue symptomatic treatment and continue Accu-Cheks. The patient was taking Lantus 40 units and p.o. intake appears to be poor at this time. I would recommend 20 units of Lantus to be restarted morning and can increase to 30 and then 40 once the p.o. intake improves. Otherwise monitor pressures closely. Continue scale. Continue the rest of the medications. DVT prophylaxis. Incentive spirometry. Closely following with cardiac surgery. Further recommendations to follow. MMODL / IJN: [id number] / MTDD
[2017-07-29] MEDS: SENNOSIDES-DOCUSATE SODIUM 1 EACH TAB PO SCH (20:10)
[2017-07-29] MEDS: METOPROLOL TARTRATE 25 MG TAB PO SCH (20:10)
[2017-07-29 21:28] LABS: Glucose,Whole Blood 164 mg/dL (75-99)
[2017-07-30 06:20] LABS: Basophils # (A) 0.1 k/uL (0-0.2); Basophils % (A) 1 %; CH 30.9; Eosinophils # (A) 0.4 k/uL (0-0.7); Eosinophils % (A) 5 %; HDW 2.87; HGB 7.6 gm/dL (11.4-16.0); Hypochromasia Slight; Luc # (Auto) 0.27; Luc % (Auto) 3; Lymphocytes # (A) 1.3 k/uL (1.0-4.8); Lymphocytes % (A) 14 %; MCH 30.8 pg (25.0-35.0); MCHC 31.8 g/dL (31.0-37.0); Mean Platelet Volume 8.8; Monocytes # (A) 0.6 k/uL (0-1.0); Monocytes % (A) 6 %; Neutrophils # (A) 6.9 k/uL (1.3-7.7); Neutrophils % (A) 73 %; RBC 2.48 m/uL (3.80-5.40); RDW 15.1 % (11.5-15.5); WBC 9.5 k/uL (3.8-10.6); WBC (Perox) 9.59
[2017-07-30] MEDS: INSULIN LISPRO (humaLOG) 300 UNIT/3 ML VIAL SQ SCH ×4 (06:34→21:15)
[2017-07-30] MEDS: HYDROcodone/APAP 5-325MG 1 EACH TAB PO PRN (06:37)
[2017-07-30] MEDS: CALCIUM ACETATE 667 MG CAP PO SCH ×3 (06:38→16:26)
[2017-07-30] MEDS: FERROUS SULFATE 325 MG TAB PO SCH ×2 (06:39→16:27)
[2017-07-30] MEDS: PANTOPRAZOLE 40 MG TABLET PO SCH (06:39)
[2017-07-30 06:42] LABS: Calcium 9.9 mg/dL (8.4-10.2); Total Bilirubin 0.4 mg/dL (0.2-1.3); Total Protein 5.6 g/dL (6.3-8.2)
[2017-07-30 06:55] LABS: Glucose,Whole Blood 130 mg/dL (75-99)
--- NOTE | 2017-07-30 07:37 | XR ---
EXAMINATION TYPE: XR chest 2V DATE OF EXAM: 07/30/2017 HISTORY: Postop CABG. REFERENCE: Previous study dated 07/29/2017. FINDINGS: There has been a midline sternotomy. The heart is enlarged. There is bibasilar airspace disease, worse on the left than the right. There a re bilateral effusions, worse on the left than the right. The overall appearance is similar to yester day's examination. IMPRESSION: NO SIGNIFICANT INTERVAL CHANGE IN APPEARANCE OF THE CHEST.
[2017-07-30] MEDS: METOPROLOL TARTRATE 25 MG TAB PO SCH ×2 (09:18→19:56)
[2017-07-30] MEDS: ATORVASTATIN 40 MG TAB PO SCH (09:18)
[2017-07-30] MEDS: CYANOCOBALAMIN 500 MCG TAB PO SCH (09:18)
[2017-07-30] MEDS: ASPIRIN 325 MG TAB PO SCH (09:18)
[2017-07-30] MEDS: CHOLECALCIFEROL 1,000 UNIT TAB PO SCH (09:19)
[2017-07-30] MEDS: CLOPIDOGREL 75 MG TAB PO SCH (09:19)
[2017-07-30] MEDS: INSULIN GLARGINE 100 UNIT/ML 10 ML VIAL SQ SCH (09:19)
[2017-07-30] MEDS: CITALOPRAM HYDROBROMIDE 20 MG TAB PO SCH (09:19)
[2017-07-30] MEDS: FOLIC ACID-VIT B COMPLEX-VIT C 1 CAP PO SCH (09:19)
[2017-07-30] MEDS: HEPARIN SODIUM,PORCINE 5,000 UNIT/ML 1 ML VIAL SQ SCH ×3 (09:19→23:15)
--- NOTE | 2017-07-30 09:52 | P.PN ---
Subjective Principal diagnosis: CAD status post CABG Patient is postop day #3 doing well and remains in sinus rhythm blood pressure is well-controlled she is in the process of being transferred to sixth floor. An optimal medical therapy. Patient is feeling better. Complains of being tired. She was dialyzed yesterday for the end-stage renal disease. She is an optimal medical therapy. Objective - Vital Signs Vital signs: Vital Signs Temp 97.7 F 07/30/17 09:23 Pulse 80 07/30/17 09:23 Resp 18 07/30/17 09:23 BP 109/68 07/30/17 09:23 Pulse Ox 99 07/30/17 09:23 Intake & Output 07/29/17 07/30/17 07/30/17 18:59 06:59 18:59 Intake Total 196 160 118 Output Total 1999 Balance -1804 160 118 Weight 86.5 kg Intake: IV 196 160 LR 190 NS @ 20 160 Pressure Bag 6 Oral 118 Output: Other 1999 Other: Voiding Method Toilet Toilet Toilet # Voids 1 ABP, PAP, CO, CI - Last Documented Arterial Blood Pressure 147/32 Pulmonary Artery Pressure 18/5 Cardiac Output 4.3 Cardiac Index 2.3 - Exam Patient is comfortable at rest vital signs are stable chest exam reveals diminished air entry at the bases heart exam reveals first and second heart sounds no gallop exam extremities shows mild edema - Labs CBC & Chem 7: 07/30/17 05:57 07/30/17 05:52 Labs: Abnormal Lab Results - Last 24 Hours (Table) 07/29/17 07/29/17 07/29/17 Range/Units 11:15 12:29 16:41 RBC (3.80-5.40) m/uL Hgb (11.4-16.0) gm/dL Hct (34.0-46.0) % BUN (7-17) mg/dL Creatinine (0.52-1.04) mg/dL Glucose (74-99) mg/dL POC Glucose (mg/dL) 136 H 112 H 130 H (75-99) mg/dL Total Protein (6.3-8.2) g/dL Albumin (3.5-5.0) g/dL 07/29/17 07/30/17 07/30/17 Range/Units 21:06 05:52 05:57 RBC 2.48 L (3.80-5.40) m/uL Hgb 7.6 L (11.4-16.0) gm/dL Hct 24.0 L (34.0-46.0) % BUN 21 H (7-17) mg/dL Creatinine 3.70 H (0.52-1.04) mg/dL Glucose 126 H (74-99) mg/dL POC Glucose (mg/dL) 164 H (75-99) mg/dL Total Protein 5.6 L (6.3-8.2) g/dL Albumin 3.4 L (3.5-5.0) g/dL 07/30/17 Range/Units 06:31 RBC (3.80-5.40) m/uL Hgb (11.4-16.0) gm/dL Hct (34.0-46.0) % BUN (7-17) mg/dL Creatinine (0.52-1.04) mg/dL Glucose (74-99) mg/dL POC Glucose (mg/dL) 130 H (75-99) mg/dL Total Protein (6.3-8.2) g/dL Albumin (3.5-5.0) g/dL Assessment and Plan Plan: CAD status post CABG ESRD hemodialysis I will continue her on her current medications. Possible discharge over the next 24-48 hours
--- NOTE | 2017-07-30 09:52 | P.PN ---
<Bon Ardon - Last Filed: 07/30/17 09:40> Subjective Principal diagnosis: Symptomatic multivessel coronary artery disease. History of non-ST elevation myocardial infarction, history of coronary artery disease with previously placed stents. History of anemia of chronic disease. History of congestive heart failure. End stage renal disease. Hyperlipidemia. POD #3, off-pump coronary artery bypass grafting 3 with left internal mammary artery to the left anterior descending coronary artery, a reverse greater saphenous vein graft to his obtuse marginal coronary artery and to his posterior descending coronary artery. Endovascular vein harvest of her left greater saphenous vein, intraoperative epi-aortic ultrasound and transesophageal echocardiogram by anesthesia. Patient is awake and alert, oriented 3. She is sitting up to the bedside chair. No acute distress. She rates her pain currently on the pain scale at 1 out of 10. Chest tubes removed yesterday 07/28/2017. Objective - Vital Signs Vital signs: Vital Signs Temp 97.7 F 07/30/17 09:23 Pulse 80 07/30/17 09:23 Resp 18 07/30/17 09:23 BP 109/68 07/30/17 09:23 Pulse Ox 99 07/30/17 09:23 Intake & Output 07/29/17 07/30/17 07/30/17 18:59 06:59 18:59 Intake Total 196 160 118 Output Total 1999 Balance -1804 160 118 Weight 86.5 kg Intake: IV 196 160 LR 190 NS @ 20 160 Pressure Bag 6 Oral 118 Output: Other 1999 Other: Voiding Method Toilet Toilet Toilet # Voids 1 ABP, PAP, CO, CI - Last Documented Arterial Blood Pressure 147/32 Pulmonary Artery Pressure 18/5 Cardiac Output 4.3 Cardiac Index 2.3 - Constitutional General appearance: Present: cooperative, no acute distress, obese - EENT Eyes: Present: PERRLA, normal appearance ENT: Present: hearing grossly normal - Neck Details: No JVD. - Respiratory Details: Lung sounds are essentially clear throughout, few scattered crackles to her bilateral bases. Respirations are symmetrical and unlabored. Oxygen saturations are 95% on 2 L nasal cannula. She is achieving 750 mL on her incentive spirometry. - Cardiovascular Details: Regular rhythm and rate. S1 and S2 present, negative for S3, gallop or murmur. Sternum is stable. Bedside telemetry showing normal sinus rhythm heart rate 74. No edema present. Heart hugger in place and she is demonstrating appropriate use. Knee-high MAAME hose and sequential compression devices in place to her bilateral lower extremities. - Gastrointestinal Gastrointestinal Comment(s): Abdomen is soft, nontender and nondistended. Active bowel sounds all 4 abdominal quadrants. She is tolerating oral intake. - Genitourinary Genitourinary Comment(s): Left upper arm AV fistula with good thrill and bruit. She received hemodialysis yesterday with 2000 mL of fluid removed. - Integumentary Integumentary Comment(s): Midline sternal incision clean and dry and well approximated. Dermabond dressing clean dry and intact. Left leg EVH harvest site incision clean dry and well approximated. No drainage noted. - Neurologic Neurologic Comment(s): No focal deficits. Neurologic: Present: CNII-XII intact - Musculoskeletal Musculoskeletal: Present: gait normal, generalized weakness, strength equal bilaterally - Psychiatric Psychiatric: Present: A&O x's 3, appropriate affect, intact judgment & insight - Allied health notes Allied health notes reviewed: nursing - Labs CBC & Chem 7: 07/30/17 05:57 07/30/17 05:52 Labs: Abnormal Lab Results - Last 24 Hours (Table) 07/29/17 07/29/17 07/29/17 Range/Units 11:15 12:29 16:41 RBC (3.80-5.40) m/uL Hgb (11.4-16.0) gm/dL Hct (34.0-46.0) % BUN (7-17) mg/dL Creatinine (0.52-1.04) mg/dL Glucose (74-99) mg/dL POC Glucose (mg/dL) 136 H 112 H 130 H (75-99) mg/dL Total Protein (6.3-8.2) g/dL Albumin (3.5-5.0) g/dL 07/29/17 07/30/17 07/30/17 Range/Units 21:06 05:52 05:57 RBC 2.48 L (3.80-5.40) m/uL Hgb 7.6 L (11.4-16.0) gm/dL Hct 24.0 L (34.0-46.0) % BUN 21 H (7-17) mg/dL Creatinine 3.70 H (0.52-1.04) mg/dL Glucose 126 H (74-99) mg/dL POC Glucose (mg/dL) 164 H (75-99) mg/dL Total Protein 5.6 L (6.3-8.2) g/dL Albumin 3.4 L (3.5-5.0) g/dL 07/30/17 Range/Units 06:31 RBC (3.80-5.40) m/uL Hgb (11.4-16.0) gm/dL Hct (34.0-46.0) % BUN (7-17) mg/dL Creatinine (0.52-1.04) mg/dL Glucose (74-99) mg/dL POC Glucose (mg/dL) 130 H (75-99) mg/dL Total Protein (6.3-8.2) g/dL Albumin (3.5-5.0) g/dL - Imaging and Cardiology Chest x-ray: report reviewed, image reviewed Assessment and Plan (1) History of myocardial infarction in adulthood Status: Acute (2) Anemia of chronic disease Status: Acute (3) Congestive heart failure Status: Acute (4) Coronary artery disease Status: Acute (5) Diabetes Status: Acute (6) ESRD (end stage renal disease) Status: Acute (7) Hyperlipemia Status: Acute (8) Left carotid bruit Status: Acute (9) Status post coronary artery bypass grafting Status: Acute Plan: 1. Continue aspirin, statin, heparin subcu, beta tone. Will maximize beta tone therapy as tolerated. 2. Encourage incentive spirometer use every hour while awake. 3. Pulmonary management per Dr. Smith's recommendations. 4. Hemodialysis management per nephrology. 5. GI/DVT prophylaxis. 6. Insulin management per primary care service. 7. Will monitor daily labs and chest x-rays. 8. Physical therapy consulted, increase activity as tolerated. 9. Dr. Chen has been consult to evaluate for inpatient rehab placement.. 10. Further recommendations as patient progresses. Time with Patient: Greater than 30 <Trey Arcos - Last Filed: 07/30/17 13:17> Objective - Vital Signs Vital signs: Vital Signs Temp 97.8 F 07/30/17 12:00 Pulse 80 07/30/17 12:00 Resp 18 07/30/17 12:00 BP 137/62 07/30/17 12:00 Pulse Ox 97 07/30/17 12:00 Intake & Output 07/29/17 07/30/17 07/30/17 18:59 06:59 18:59 Intake Total 196 160 118 Output Total 1999 Balance -1804 160 118 Weight 86.5 kg Intake: IV 196 160 LR 190 NS @ 20 160 Pressure Bag 6 Oral 118 Output: Other 1999 Other: Voiding Method Toilet Toilet Toilet # Voids 1 ABP, PAP, CO, CI - Last Documented Arterial Blood Pressure 147/32 Pulmonary Artery Pressure 18/5 Cardiac Output 4.3 Cardiac Index 2.3 - Labs CBC & Chem 7: 07/30/17 05:57 07/30/17 05:52 Labs: Abnormal Lab Results - Last 24 Hours (Table) 07/29/17 07/29/17 07/30/17 Range/Units 16:41 21:06 05:52 RBC (3.80-5.40) m/uL Hgb (11.4-16.0) gm/dL Hct (34.0-46.0) % BUN 21 H (7-17) mg/dL Creatinine 3.70 H (0.52-1.04) mg/dL Glucose 126 H (74-99) mg/dL POC Glucose (mg/dL) 130 H 164 H (75-99) mg/dL Total Protein 5.6 L (6.3-8.2) g/dL Albumin 3.4 L (3.5-5.0) g/dL 07/30/17 07/30/17 Range/Units 05:57 06:31 RBC 2.48 L (3.80-5.40) m/uL Hgb 7.6 L (11.4-16.0) gm/dL Hct 24.0 L (34.0-46.0) % BUN (7-17) mg/dL Creatinine (0.52-1.04) mg/dL Glucose (74-99) mg/dL POC Glucose (mg/dL) 130 H (75-99) mg/dL Total Protein (6.3-8.2) g/dL Albumin (3.5-5.0) g/dL Assessment and Plan Plan: The patient was seen and examined. I agree with the above assessment and plan. She underwent hemodialysis as directed by nephrology yesterday. We will continue to wean her oxygen. We will encourage ambulation. We are awaiting evaluation for possible transfer to inpatient rehab.
[2017-07-30] MEDS: MUPIROCIN 2% OINT 22 GM TUBE NASAL SCH ×2 (11:54→19:56)
--- NOTE | 2017-07-30 12:05 | P.PN ---
Subjective Principal diagnosis: Status post CABG for multivessel coronary artery disease, postoperative day #3 Seen today on 07/29/20.7, This is a 72-year-old female with history of renal failure, on hemodialysis, postoperative day #2, patient underwent off pump coronary artery bypass grafting with BARROS to LAD, reverse greater saphenous vein graft to the obtuse marginal coronary artery and to the posterior descending coronary artery. Patient was seen postoperatively on consultation, and around midnight patient was extubated uneventfully. She doing well today, no plans for dialysis today. Patient was reevaluated today on 07/30/2017, doing quite well, asymptomatic, and sinus rhythm, blood pressure is well controlled, no cough no wheezing no shortness of breath. Patient was last dialyzed on Monday, she would likely have hemodialysis again on Monday. Chest x-ray showed no interval change compared to the last chest x-ray, there is minimal bibasilar atelectasis mostly at the left base. Hemoglobin is 7.6, basic metabolic profile is normal, BUN is 21 creatinine is 3.70. Objective - Vital Signs Vital signs: Vital Signs Temp 97.7 F 07/30/17 09:23 Pulse 80 07/30/17 09:23 Resp 18 07/30/17 09:23 BP 109/68 07/30/17 09:23 Pulse Ox 99 07/30/17 09:23 Intake & Output 07/29/17 07/30/17 07/30/17 18:59 06:59 18:59 Intake Total 196 160 118 Output Total 1999 Balance -1804 160 118 Weight 86.5 kg Intake: IV 196 160 LR 190 NS @ 20 160 Pressure Bag 6 Oral 118 Output: Other 1999 Other: Voiding Method Toilet Toilet Toilet # Voids 1 ABP, PAP, CO, CI - Last Documented Arterial Blood Pressure 147/32 Pulmonary Artery Pressure 18/5 Cardiac Output 4.3 Cardiac Index 2.3 - Exam Physical Exam: Revealed a 72-year-old female in no distress. HEENT:[Neck is supple.] [No neck masses.] [No thyromegaly.] [No JVD.] Dry mucous membranes were noted. Chest: [Diminished breath sounds bilaterally, no crackles, no rhonchi, no wheezes] Cardiac Exam: [Normal S1 and S2, no S3 gallop, no murmur.] Sternum seems to be stable. Abdomen: [Soft, nontender, no megaly, no rebound, no guarding, normal bowel sounds.] Extremities: [No clubbing, no edema, no cyanosis.]. Left arm AV fistula is noted with good thrill and bruit. Neurological Exam: [No focal neurologic deficit.] - Labs CBC & Chem 7: 07/30/17 05:57 07/30/17 05:52 Labs: Abnormal Lab Results - Last 24 Hours (Table) 07/29/17 07/29/17 07/29/17 Range/Units 12:29 16:41 21:06 RBC (3.80-5.40) m/uL Hgb (11.4-16.0) gm/dL Hct (34.0-46.0) % BUN (7-17) mg/dL Creatinine (0.52-1.04) mg/dL Glucose (74-99) mg/dL POC Glucose (mg/dL) 112 H 130 H 164 H (75-99) mg/dL Total Protein (6.3-8.2) g/dL Albumin (3.5-5.0) g/dL 07/30/17 07/30/17 07/30/17 Range/Units 05:52 05:57 06:31 RBC 2.48 L (3.80-5.40) m/uL Hgb 7.6 L (11.4-16.0) gm/dL Hct 24.0 L (34.0-46.0) % BUN 21 H (7-17) mg/dL Creatinine 3.70 H (0.52-1.04) mg/dL Glucose 126 H (74-99) mg/dL POC Glucose (mg/dL) 130 H (75-99) mg/dL Total Protein 5.6 L (6.3-8.2) g/dL Albumin 3.4 L (3.5-5.0) g/dL Assessment and Plan Plan: Impression: 1 status post CABG, postoperative day #3 2 history of coronary artery disease/triple-vessel coronary artery disease, recent non-ST elevation myocardial infarction. 3 history of congestive heart failure. 4 history of end-stage renal disease on hemodialysis. 5 history of type 2 diabetes 6 history of mixed hyperlipidemia. Recommendation: Continue present treatment plan including dialysis, incentive spirometry, bronchodilators, ambulation, we'll continue to follow. Time with Patient: Less than 30
[2017-07-30 14:20] LABS: Glucose,Whole Blood 206 mg/dL (75-99)
[2017-07-30] MEDS ORDERED: INSULIN GLARGINE 100 UNIT/ML 10 ML VIAL SQ STA (14:28)
--- NOTE | 2017-07-30 15:22 | PN ---
PROGRESS NOTE The patient is seen for followup for end-stage renal disease. She is status post coronary artery bypass surgery and doing very well. The patient had surgery on 07/27/2017. She was dialyzed yesterday and tolerated her treatment well. EXAMINATION: Blood pressure is 137/62, heart rate 62 per minute. She is afebrile. Examination of the heart: S1, S2. Examination of the lungs: Bilateral breath sounds are heard. Abdomen is soft. Examination lower extremities show no significant edema. LABS: Sodium 138, potassium 4.0, hemoglobin 7.6 g/dL. ASSESSMENT: 1. End-stage renal disease, on hemodialysis on a Monday, , Monday schedule. We will re-evaluate her tomorrow and assess for need of dialysis. If her hemoglobin is lower, I will transfuse her 1 unit packed RBCs with dialysis tomorrow. 2. Status post coronary artery bypass surgery on 07/27/2017. 3. Hypertension, currently controlled. 4. CKD bone mineral disorder maintained on PhosLo. PLAN: Repeat CBC in a.m. We will evaluate for dialysis tomorrow. Otherwise, we will dialyze her on Monday, which is 08/01. MMODL / IJN: [id number] /
[2017-07-30 17:03] LABS: Glucose,Whole Blood 160 mg/dL (75-99)
[2017-07-30] MEDS: SENNOSIDES-DOCUSATE SODIUM 1 EACH TAB PO SCH (19:56)
[2017-07-30 20:43] LABS: Glucose,Whole Blood 209 mg/dL (75-99)
--- NOTE | 2017-07-30 23:15 | PN ---
PROGRESS NOTE DATE OF SERVICE: 07/30/2017 HISTORY: This 72-year-old woman who was admitted with multivessel CAD, CABG, is being closely monitored also. The patient also has diabetes type 2 also. No chest pain. No palpitations. No fever. PHYSICAL EXAM: GENERAL: Alert, oriented x3. VITAL SIGNS: Pulse 60, blood pressure 108/58, respiration 18, temperature 97.6, pulse ox 100% on room air. HEENT: Conjunctivae normal. NECK: Normal. No JVD. CARDIOVASCULAR: S1 and S2 muffled. LUNGS: Breath sounds diminished at the bases. Few scattered rhonchi. ABDOMEN: Soft, nontender. No mass. SWIM INSTRUCTOR: No focal deficits. LABS: WBC 9.2, hemoglobin 7.6, glucose 206. ASSESSMENT: 1. Status post coronary artery disease with coronary artery bypass grafting. 2. Diabetes mellitus type 2. 3. Chronic renal failure stage 5 on chronic kidney disease on hemodialysis. 4. History of recent non ST-segment elevation myocardial infarction. 5. Hyperlipidemia. RECOMMENDATIONS/DISCUSSION: Continue current management and symptomatic treatment. Increase Lantus to 30 units. Otherwise closely monitor blood sugar. Continue the rest of the medications. Dr. Malone will follow. MMODL / IJN: [id number] /
[2017-07-31 06:16] LABS: Basophils % (A) 0 %; CH 30.7; CHCM 31.9; Eosinophils # (A) 0.3 k/uL (0-0.7); Eosinophils % (A) 4 %; HCT 23.2 % (34.0-46.0); HDW 2.89; HGB 7.4 gm/dL (11.4-16.0); Hypochromasia Slight; Luc # (Auto) 0.25; Luc % (Auto) 3; Lymphocytes # (A) 1.1 k/uL (1.0-4.8); Lymphocytes % (A) 12 %; MCH 30.7 pg (25.0-35.0); MCHC 31.6 g/dL (31.0-37.0); Mean Platelet Volume 9.1; Monocytes # (A) 0.5 k/uL (0-1.0); Monocytes % (A) 6 %; Neutrophils # (A) 6.5 k/uL (1.3-7.7); Neutrophils % (A) 75 %; WBC 8.7 k/uL (3.8-10.6); WBC (Perox) 8.59
[2017-07-31 06:28] LABS: Glucose,Whole Blood 105 mg/dL (75-99)
[2017-07-31] MEDS: INSULIN GLARGINE 100 UNIT/ML 10 ML VIAL SQ SCH (06:28)
[2017-07-31] MEDS: INSULIN LISPRO (humaLOG) 300 UNIT/3 ML VIAL SQ SCH ×4 (06:29→20:51)
[2017-07-31] MEDS: PANTOPRAZOLE 40 MG TABLET PO SCH (06:29)
[2017-07-31] MEDS: FERROUS SULFATE 325 MG TAB PO SCH ×2 (06:29→17:19)
[2017-07-31] MEDS: CALCIUM ACETATE 667 MG CAP PO SCH ×3 (06:29→17:19)
[2017-07-31 06:33] LABS: Calcium 9.8 mg/dL (8.4-10.2); Potassium 4.1 mmol/L (3.5-5.1); Total Bilirubin 0.4 mg/dL (0.2-1.3); Total Protein 5.5 g/dL (6.3-8.2)
--- NOTE | 2017-07-31 07:05 | P.CONS ---
History of Present Illness - Chief Complaint Cardiac debility - History of Present Illness I had the op to see patient for inpatient rehab consultation with regard to cardiac debility. She was admitted to [facility] July 27 with chest pain and non-STEMI. Underwent three-vessel CABG. Seen by cardiology and medical. PT reports minimal assistance for bed mobility and gait 20 feet with hand-held assist. OT prescribed. Previous functional history as elicited from patient: 72-year-old right-handed white female who is single lives in one floor home with son and son's girlfriend. Girlfriend does the cooking. Patient independent with own laundry and driving as well as standing shower and gait without device. Regular doctors Dr. Malone. Family history of cancer in both parents. Review of Systems Review of systems: ENT: Denies sneezes or discharge. Eyes: Denies discharge or photophobia. Cardiac: Some chest pain or discomfort. Pulmonary: Denies cough or shortness of breath. Breast: Denies discharge or lumps. Gastrointestinal: Denies nausea, emesis, constipation, diarrhea. Genitourinary: Denies discharge or frequency. Musculoskeletal: Denies muscle or bone aches. Neurologic: Denies motor or sensory change. Endocrine: Denies shakes or sweats. Oncology: Denies cancers. Dermatologic: Denies rash, itching, pruritus. ALLERGY/immunology: Denies sneezes, rashes. Past Medical History Past Medical History: Coronary Artery Disease (CAD), Chest Pain / Angina, Diabetes Mellitus, Dialysis, Hyperlipidemia, Hypertension, Myocardial Infarction (ME), Renal Disease Additional Past Medical History / Comment(s): End-stage renal disease with hemodialysis 3 times a week usually has on . , mon.-left arm AV fistula , Non-STEMI 03/14/16, peripheral neuropathy bilateral feet cataracts bilaterally , frequent UTI'S, stress incontinence. Last Myocardial Infarction Date:: 07/15/2017 History of Any Multi-Drug Resistant Organisms: None Reported Past Surgical History: Appendectomy, Cholecystectomy, Heart Catheterization, Heart Catheterization With Stent, Tonsillectomy Additional Past Surgical History / Comment(s): 03/15/16 PTCA with stent to mid LAD,06-07-16 HEART CATH STENT TO PROX RCA. Restented mid LAD 11/20/16 A/V fistula with revision L upper arm, history of Lasix eye surgery and cataract removal. Past Anesthesia/Blood Transfusion Reactions: No Reported Reaction Date of Last Stent Placement:: 11/21/2016 Smoking Status: Former smoker - Past Family History Father Family Medical History: Diabetes Mellitus Additional Family Medical History / Comment(s): Father of diabetic complications in his 40's Mother Family Medical History: Cancer, Myocardial Infarction (ME) Additional Family Medical History / Comment(s): Cancer unknown type. Mother of a ME in her early 50's Brother(s) Family Medical History: Cancer Additional Family Medical History / Comment(s): Her brother from lung cancer and cirrhosis of the liver. Medications and Allergies Home Medications Medication Instructions Recorded Confirmed Type Folic Acid-Vit B Complex-Vit C 1 cap PO DAILY 06/06/16 07/27/17 History [Nephrocaps] Citalopram Hydrobromide [CeleXA] 20 mg PO DAILY 08/05/16 07/27/17 History Isosorbide Mononitrate ER [Imdur] 30 mg PO DAILY 11/19/16 07/27/17 History Atorvastatin [Lipitor] 80 mg PO HS #30 tab 11/22/16 07/27/17 Rx Clopidogrel [Plavix] 75 mg PO DAILY #30 tab 11/22/16 07/27/17 Rx Nitroglycerin Sl Tabs [Nitrostat] 0.4 mg SUBLINGUAL Q5M PRN #25 tab 11/22/1606/05 Rx Furosemide [Lasix] 40 mg PO DAILY 04/21/17 07/27/17 History Meclizine [Antivert] 25 mg PO BID PRN 04/21/17 07/27/17 History Insulin Glargine,Hum.rec.anlog 40 unit SQ QAM 06/03/17 07/27/17 History [Lantus Solostar] Ondansetron Odt [Zofran ODT] 4 mg PO Q8HR PRN #10 tab 06/24/17 07/27/17 Rx Calcium Acetate [PhosLo] 1,334 mg PO AC-TID cap 07/18/17 07/27/17 Rx Carvedilol [Coreg*] 25 mg PO BID-W/MEALS tab 07/18/17 07/27/17 Rx Cholecalciferol [Vitamin D3] 1,000 unit PO DAILY tab 07/18/17 07/27/17 Rx Cyanocobalamin [Vitamin B-12] 1,000 mcg PO DAILY tab 07/18/17 07/27/17 Rx Ferrous Sulfate [Iron (65 MG 325 mg PO BID-W/MEALS tab 07/18/17 07/27/17 Rx Elemental)] Aspirin 325 mg PO DAILY 07/21/17 07/27/17 History Allergies Allergy/AdvReac Type Severity Reaction Status Date / Time glyburide [From Diabeta] Allergy Rash/Hives Verified 07/27/17 06:03 Physical Exam Vitals: Vital Signs Temp Pulse Pulse Pulse Resp BP Pulse Ox 07/31/17 04:00 98.9 F 65 18 124/59 94 L 07/30/17 23:47 65 18 113/55 96 07/30/17 19:59 18 07/30/17 19:55 97.8 F 62 18 123/60 96 07/30/17 17:00 97 07/30/17 16:00 97.6 F 80 60 16 118/58 100 07/30/17 12:00 97.8 F 62 84 16 137/62 97 07/30/17 09:23 97.7 F 80 84 16 109/68 99 07/30/17 08:18 90 L Intake and Output 07/30/17 07/31/17 07/31/17 22:59 06:59 14:59 Intake Total 300 Balance 300 Intake: Oral 300 Other: Voiding Method Toilet Toilet # Voids 0 0 Skin: Atrophic, intact. General: Medium build and comfortable appearance. Head: Normocephalic, atraumatic. Eyes: Symmetric. Pupils equal round. Ears: Symmetric. Hearing within normal limits. Mouth: Clear. Neck: Supple. Carotid without bruit. Cardiac: Regular rate and rhythm. Lungs: Clear anteriorly and posteriorly. Abdomen: Soft active nontender. Extremities: Normal tone. Neurological: Mental status: Alert, cooperative, pleasant. Cranial nerves: Symmetric facial tone and trapezius. Motor: Normal strength and isolation all 4 limbs. Sensation: Intact throughout. DTRs: Symmetric and equal throughout. Mobility: To early to sit or stand. Results CBC & Chem 7: 07/31/17 05:33 07/31/17 05:33 Labs: Abnormal Lab Results - Last 24 Hours (Table) 09/09/0507/30/17 07/30/17 Range/Units 05:52 14:18 16:50 RBC (3.80-5.40) m/uL Hgb (11.4-16.0) gm/dL Hct (34.0-46.0) % Sodium (137-145) mmol/L BUN 21 H (7-17) mg/dL Creatinine 3.70 H (0.52-1.04) mg/dL Glucose 126 H (74-99) mg/dL POC Glucose (mg/dL) 206 H 160 H (75-99) mg/dL AST (14-36) U/L Total Protein 5.6 L (6.3-8.2) g/dL Albumin 3.4 L (3.5-5.0) g/dL 07/30/17 07/31/17 07/31/17 Range/Units 20:36 05:33 05:33 RBC 2.40 L (3.80-5.40) m/uL Hgb 7.4 L (11.4-16.0) gm/dL Hct 23.2 L (34.0-46.0) % Sodium 136 L (137-145) mmol/L BUN 36 H (7-17) mg/dL Creatinine 5.68 H* (0.52-1.04) mg/dL Glucose (74-99) mg/dL POC Glucose (mg/dL) 209 H (75-99) mg/dL AST 42 H (14-36) U/L Total Protein 5.5 L (6.3-8.2) g/dL Albumin 3.2 L (3.5-5.0) g/dL 07/31/17 Range/Units 06:26 RBC (3.80-5.40) m/uL Hgb (11.4-16.0) gm/dL Hct (34.0-46.0) % Sodium (137-145) mmol/L BUN (7-17) mg/dL Creatinine (0.52-1.04) mg/dL Glucose (74-99) mg/dL POC Glucose (mg/dL) 105 H (75-99) mg/dL AST (14-36) U/L Total Protein (6.3-8.2) g/dL Albumin (3.5-5.0) g/dL Chest x-ray: report reviewed (Followed for bilateral pleural effusions which are stable.) Assessment and Plan Plan: Impression: 1. Cardiac debility. 2. Non-STEMI ME. 3. Status post three-vessel coronary bypass. 4. Diabetes. 5. Dialysis for renal disease. 6. Hypertension. 7. Dyslipidemia. Comments and plan: At this time PT is ongoing and OT ordered. PT as documented safety concerns.
[2017-07-31] MEDS: CLOPIDOGREL 75 MG TAB PO SCH (10:26)
[2017-07-31] MEDS: HEPARIN SODIUM,PORCINE 5,000 UNIT/ML 1 ML VIAL SQ SCH ×3 (10:26→23:07)
[2017-07-31] MEDS: CYANOCOBALAMIN 500 MCG TAB PO SCH (10:27)
[2017-07-31] MEDS: CITALOPRAM HYDROBROMIDE 20 MG TAB PO SCH (10:27)
[2017-07-31] MEDS: ATORVASTATIN 40 MG TAB PO SCH (10:27)
[2017-07-31] MEDS: FOLIC ACID-VIT B COMPLEX-VIT C 1 CAP PO SCH (10:27)
[2017-07-31] MEDS: METOPROLOL TARTRATE 25 MG TAB PO SCH ×2 (10:27→21:48)
[2017-07-31] MEDS: CHOLECALCIFEROL 1,000 UNIT TAB PO SCH (10:27)
--- NOTE | 2017-07-31 10:31 | P.PN ---
<Fallon Carreon - Last Filed: 07/31/17 10:19> Subjective Principal diagnosis: Symptomatic multivessel coronary artery disease. History of non-ST elevation myocardial infarction and coronary artery disease with previously placed stents. History of anemia of chronic disease. History of congestive heart failure. End-stage renal disease currently on dialysis. Hyperlipidemia.. POD #4 off-pump coronary artery bypass grafting 3 with left internal mammary artery to the left anterior descending artery and reverse saphenous vein grafts to the obtuse marginal and posterior descending coronary arteries with endovascular vein harvest of the left greater saphenous vein, epi-aortic ultrasound, and intraoperative transesophageal echocardiogram by anesthesia. Patient is currently sitting up in bed in no acute distress receiving dialysis. Denies pain, shortness of breath. States that she ambulated in the hallway yesterday. Objective - Vital Signs Vital signs: Vital Signs Temp 97.3 F L 07/31/17 08:30 Pulse 63 07/31/17 10:12 Resp 16 07/31/17 10:12 BP 148/65 07/31/17 10:12 Pulse Ox 99 07/31/17 10:12 Intake & Output 07/30/17 07/31/17 07/31/17 18:59 06:59 18:59 Intake Total 654 Output Total 1000 Balance 654 -1000 Intake: Oral 654 Output: Other 1000 Other: Voiding Method Toilet Toilet # Voids 0 0 ABP, PAP, CO, CI - Last Documented Arterial Blood Pressure 147/32 Pulmonary Artery Pressure 18/5 Cardiac Output 4.3 Cardiac Index 2.3 - Constitutional General appearance: Present: cooperative, no acute distress - Respiratory Details: Lungs sounds diminished bilaterally. Respirations even, nonlabored. Currently on 1 L nasal cannula with oxygen saturation 94%. Able to achieve 500 mL on incentive spirometry. - Cardiovascular Details: S1, S2 present. Regular rate and rhythm, normal sinus rhythm on telemetry. Sternum stable. Heart hugger in place with patient demonstrating appropriate use. Left upper extremity AV fistula currently in use for dialysis. No edema present. Palpable pulses bilaterally. Teds/SCDs present. - Gastrointestinal Gastrointestinal Comment(s): Abdomen soft, nontender, nondistended. Active bowel sounds 4 quadrants. Tolerating diet. - Integumentary Integumentary Comment(s): Anterior chest wall approximated with dry intact dressing. Left lower extremity EVH site well approximated. - Neurologic Neurologic: Present: CNII-XII intact - Musculoskeletal Musculoskeletal: Present: gait normal, strength equal bilaterally - Psychiatric Psychiatric: Present: A&O x's 3, appropriate affect, intact judgment & insight - Allied health notes Allied health notes reviewed: nursing - Labs CBC & Chem 7: 07/31/17 05:33 07/31/17 05:33 Labs: Abnormal Lab Results - Last 24 Hours (Table) 07/30/17 07/30/17 07/30/17 Range/Units 14:18 16:50 20:36 RBC (3.80-5.40) m/uL Hgb (11.4-16.0) gm/dL Hct (34.0-46.0) % Sodium (137-145) mmol/L BUN (7-17) mg/dL Creatinine (0.52-1.04) mg/dL POC Glucose (mg/dL) 206 H 160 H 209 H (75-99) mg/dL AST (14-36) U/L Total Protein (6.3-8.2) g/dL Albumin (3.5-5.0) g/dL 07/31/17 07/31/17 07/31/17 Range/Units 05:33 05:33 06:26 RBC 2.40 L (3.80-5.40) m/uL Hgb 7.4 L (11.4-16.0) gm/dL Hct 23.2 L (34.0-46.0) % Sodium 136 L (137-145) mmol/L BUN 36 H (7-17) mg/dL Creatinine 5.68 H* (0.52-1.04) mg/dL POC Glucose (mg/dL) 105 H (75-99) mg/dL AST 42 H (14-36) U/L Total Protein 5.5 L (6.3-8.2) g/dL Albumin 3.2 L (3.5-5.0) g/dL Assessment and Plan (1) History of myocardial infarction in adulthood Status: Acute (2) Status post coronary artery bypass grafting Status: Acute (3) Anemia of chronic disease Status: Acute (4) Congestive heart failure Status: Acute (5) Diabetes Status: Acute (6) ESRD (end stage renal disease) Status: Acute (7) HTN (hypertension) Status: Acute (8) Hyperlipemia Status: Acute Plan: 1. Continue aspirin, statin, Plavix, heparin subcu, beta tone. Will maximize beta tone therapy as tolerated. 2. Wean O2 as tolerated. Encourage incentive spirometer use. 3. Increase activity, ambulate in hallway. Physical therapy following. 4. GI/DVT prophylaxis. 5. Dialysis per nephrology. 6. Will monitor daily labs. 7. Insulin management per primary care service. 8. Appreciate recommendations from Dr. Chen. 9. More recommendations as patient progresses. May discharge to rehab when recommendations are made, bed is available, and insurance authorization has been obtained. Time with Patient: Greater than 30 <Trey Arcos - Last Filed: 08/01/17 11:27> Objective - Vital Signs Vital signs: Vital Signs Temp 97.2 F L 08/01/17 08:00 Pulse 75 08/01/17 09:50 Resp 18 08/01/17 02:52 BP 126/58 08/01/17 08:00 Pulse Ox 94 L 08/01/17 09:50 Intake & Output 07/31/17 08/01/17 08/01/17 18:59 06:59 18:59 Intake Total 200 Output Total 1000 Balance -800 Weight 83.8 kg Intake: Oral 200 Output: Other 1000 Other: Voiding Method Toilet Toilet # Voids 0 ABP, PAP, CO, CI - Last Documented Arterial Blood Pressure 147/32 Pulmonary Artery Pressure 18/5 Cardiac Output 4.3 Cardiac Index 2.3 - Labs CBC & Chem 7: 08/01/17 06:32 08/01/17 06:32 Labs: Abnormal Lab Results - Last 24 Hours (Table) 07/30/17 08/01/17 08/01/17 Range/Units 11:49 06:05 06:32 RBC 2.55 L (3.80-5.40) m/uL Hgb 7.7 L (11.4-16.0) gm/dL Hct 24.6 L (34.0-46.0) % Chloride (98-107) mmol/L BUN (7-17) mg/dL Creatinine (0.52-1.04) mg/dL Glucose (74-99) mg/dL POC Glucose (mg/dL) 230 H 73 L (75-99) mg/dL Total Protein (6.3-8.2) g/dL Albumin (3.5-5.0) g/dL 08/01/17 Range/Units 06:32 RBC (3.80-5.40) m/uL Hgb (11.4-16.0) gm/dL Hct (34.0-46.0) % Chloride 97 L (98-107) mmol/L BUN 31 H (7-17) mg/dL Creatinine 5.25 H* (0.52-1.04) mg/dL Glucose 69 L (74-99) mg/dL POC Glucose (mg/dL) (75-99) mg/dL Total Protein 5.6 L (6.3-8.2) g/dL Albumin 3.2 L (3.5-5.0) g/dL Assessment and Plan Plan: The patient was seen and examined. I agree with the above assessment and plan. We will continue to encourage ambulation and oral intake. She is scheduled for hemodialysis tomorrow. We will hold off on blood transfusion for now. We are awaiting a decision by inpatient rehab for transfer.
[2017-07-31] MEDS: ASPIRIN 325 MG TAB PO SCH (10:33)
--- NOTE | 2017-07-31 11:35 | P.PN ---
Subjective Principal diagnosis: CAD, s/p CABG Ms. Bloom is postop day #4 and she is doing fairly well, undergoing dialysis at the time of my exam. Did have some complaints of nausea and vomiting this morning, this is improved. He has been essentially maintaining sinus rhythm, did have very brief actually 12 second episode of PAF with RVR. This was during dialysis and while she was nauseous and vomiting. Since maintaining sinus rhythm. Other than nausea this morning she is a well feeling well. Pain is well controlled. She denies complaints of shortness of breath, dizziness, palpitations or edema. Objective - Vital Signs Vital signs: Vital Signs Temp 97.3 F L 07/31/17 08:30 Pulse 63 07/31/17 10:38 Resp 16 07/31/17 10:12 BP 148/65 07/31/17 10:12 Pulse Ox 96 07/31/17 10:38 Intake & Output 07/30/17 07/31/17 07/31/17 18:59 06:59 18:59 Intake Total 654 Output Total 1000 Balance 654 -1000 Intake: Oral 654 Output: Other 1000 Other: Voiding Method Toilet Toilet Toilet # Voids 0 0 ABP, PAP, CO, CI - Last Documented Arterial Blood Pressure 147/32 Pulmonary Artery Pressure 18/5 Cardiac Output 4.3 Cardiac Index 2.3 - Exam PHYSICAL EXAMINATION: HEENT: Head is atraumatic, normocephalic. Pupils equal, round. Neck is supple. There is no elevated jugular venous pressure. HEART EXAMINATION: Heart sounds regular, S1 and S2 normal. No murmur or gallop heard. CHEST EXAMINATION: Lungs are clear to auscultation and precussion. No chest wall tenderness is noted on palpation or with deep breathing. Midsternal incision with dressing dry and intact. ABDOMEN: Soft, nontender. Bowel sounds are heard. No organomegaly noted. EXTREMITIES: 2+ peripheral pulses with no evidence of peripheral edema and no calf tenderness noted. NEUROLOGIC patient is awake, alert and oriented x3. . - Labs CBC & Chem 7: 07/31/17 05:33 07/31/17 05:33 Labs: Abnormal Lab Results - Last 24 Hours (Table) 07/30/17 07/30/17 07/30/17 Range/Units 14:18 16:50 20:36 RBC (3.80-5.40) m/uL Hgb (11.4-16.0) gm/dL Hct (34.0-46.0) % Sodium (137-145) mmol/L BUN (7-17) mg/dL Creatinine (0.52-1.04) mg/dL POC Glucose (mg/dL) 206 H 160 H 209 H (75-99) mg/dL AST (14-36) U/L Total Protein (6.3-8.2) g/dL Albumin (3.5-5.0) g/dL 07/31/17 07/31/17 07/31/17 Range/Units 05:33 05:33 06:26 RBC 2.40 L (3.80-5.40) m/uL Hgb 7.4 L (11.4-16.0) gm/dL Hct 23.2 L (34.0-46.0) % Sodium 136 L (137-145) mmol/L BUN 36 H (7-17) mg/dL Creatinine 5.68 H* (0.52-1.04) mg/dL POC Glucose (mg/dL) 105 H (75-99) mg/dL AST 42 H (14-36) U/L Total Protein 5.5 L (6.3-8.2) g/dL Albumin 3.2 L (3.5-5.0) g/dL Assessment and Plan Plan: Assessment and plan #1 CAD status post CABG #2 end-stage renal disease, on hemodialysis From cardiology's perspective, we anticipate patient will be discharged home soon. She'll be scheduled to see Dr. Gross in the office in about 4 weeks. The above dictated assessment and findings were discussed with signing physician. The impression and plan of care have been directed as dictated. Delia Ames, Nurse Practitioner, acting as scribe for signing physician.
[2017-07-31 11:39] LABS: Glucose,Whole Blood 82 mg/dL (75-99)
--- NOTE | 2017-07-31 11:45 | P.PN ---
Subjective Principal diagnosis: 72-year-old female who was admitted to the hospital on 07/27/2017 for CABG. The patient underwent coronary artery bypass grafting x3 vessels, off pump , with BARROS to the LAD, a reverse greater saphenous vein graft to the obtuse marginal coronary artery and the posterior descending coronary artery. The patient was seen and examined this morning on rounds with Dr. Malone. She states she is very tired and was falling asleep during our conversation. She states she has not got much sleep during her hospitalization. The patient states she gets dialysis Monday, , and Saturdays. However, the patient is also receiving dialysis today as her creatinine has increased from 3.70 to 5.68. The dialysis nurse was just beginning to set up during our examination. The patient remains on a humalog sliding scale. Additionally, her lantus was increased to 30 units from 20 units beginning this morning. Her blood sugars range from 130-209 for the past 24 hours. This morning her blood sugar was 105. She states she has some pain and feels sore. She is tolerating her diet without nausea or vomiting. She denies chest pain or shortness of breath. She remains afebrile and her vital signs are stable. She is maintaining oxygen saturations greater than 92% on room air. Objective - Vital Signs Vital signs: Vital Signs Temp 97.3 F L 07/31/17 08:30 Pulse 63 07/31/17 10:38 Resp 16 07/31/17 10:12 BP 148/65 07/31/17 10:12 Pulse Ox 96 07/31/17 10:38 Intake & Output 07/30/17 07/31/17 07/31/17 18:59 06:59 18:59 Intake Total 654 Output Total 1000 Balance 654 -1000 Intake: Oral 654 Output: Other 1000 Other: Voiding Method Toilet Toilet Toilet # Voids 0 0 ABP, PAP, CO, CI - Last Documented Arterial Blood Pressure 147/32 Pulmonary Artery Pressure 18/5 Cardiac Output 4.3 Cardiac Index 2.3 - Exam GENERAL: Alert and oriented. Appears in no acute distress. Pleasant. Patient with chest splinting device/heart hugger in place. RESPIRATORY: Lungs clear bilaterally. No use of accessory muscles. Patient maintaining oxygen saturation greater than 92% on room air. CARDIOVASCULAR: clinical research monitor: sinus rhythm. S1 and S2 noted. No murmurs auscultated. No JVD noted. EXTREMITIES: No edema noted. Palpable pedal pulses +2. AV Fistula to left arm noted. : [place] intact with clear yellow urine. ABDOMEN: No distention noted. Abdomen soft and round. Normal active bowel sounds auscultated 4 quadrants. No pain or tenderness noted upon palpation - Labs CBC & Chem 7: 08/01/17 06:32 08/01/17 06:32 Labs: Abnormal Lab Results - Last 24 Hours (Table) 07/30/17 07/30/17 07/30/17 Range/Units 14:18 16:50 20:36 RBC (3.80-5.40) m/uL Hgb (11.4-16.0) gm/dL Hct (34.0-46.0) % Sodium (137-145) mmol/L BUN (7-17) mg/dL Creatinine (0.52-1.04) mg/dL POC Glucose (mg/dL) 206 H 160 H 209 H (75-99) mg/dL AST (14-36) U/L Total Protein (6.3-8.2) g/dL Albumin (3.5-5.0) g/dL 07/31/17 07/31/17 07/31/17 Range/Units 05:33 05:33 06:26 RBC 2.40 L (3.80-5.40) m/uL Hgb 7.4 L (11.4-16.0) gm/dL Hct 23.2 L (34.0-46.0) % Sodium 136 L (137-145) mmol/L BUN 36 H (7-17) mg/dL Creatinine 5.68 H* (0.52-1.04) mg/dL POC Glucose (mg/dL) 105 H (75-99) mg/dL AST 42 H (14-36) U/L Total Protein 5.5 L (6.3-8.2) g/dL Albumin 3.2 L (3.5-5.0) g/dL Assessment and Plan Plan: ASSESSMENT: -History of coronary artery disease previous stent placement -Status post coronary artery bypass grafting x3 vessels -End stage renal disease, on hemodialysis -Chronic diastolic heart failure -Anemia of chronic disease, related to chronic renal failure -History diabetes mellitus, type II -Hyperglycemia, related to uncontrolled diabetes mellitus type 2, recent hemoglobin A1C was 9.2% PLAN: -Continue post op management per cardiothoracic surgery -Continue hemodialysis 3x weekly and PRN. Patient to receive additional dialysis today. -DVT prophylaxis: Patient receiving heparin 5000 units subcu every 8 hours -GI prophylaxis: Patient receiving Protonix 40 mg IV daily -Monitor vital signs and address as appropriate -Continue to monitor capillary blood glucose -Continue humalog sliding scale -Continue 30 units lantus Q24 hours -Monitor labs -Monitor hemoglobin. Continue with ferrous sulfate 325mg PO BID -Continue PT/OT -Dr. Les Chen, consulted for possible inpatient rehab, awaiting recommedations. Appreciate input. The above impression and plan of care have been discussed and directed by signing physician. Staci Tamayo, nurse practitioner, acting as scribe for signing physician.
--- NOTE | 2017-07-31 12:37 | P.PN ---
Subjective Progress note dated 07/31/2017 This is a 72-year-old female postop day #4 status post multivessel bypass grafting. She had a recent non-ST segment elevation myocardial infarction, suffers from congestive heart failure, has a history of end-stage renal disease on hemodialysis type 2 diabetes mellitus and hyperlipidemia. The patient is doing relatively well. The patient has been weaned off of oxygen. Her saturations on room air 95%. Denies any tightness in the chest coughing wheezing shortness of breath phlegm production. No nausea vomiting or diarrhea. All all the patient feels reasonably well. Objective - Vital Signs Vital signs: Vital Signs Temp 98.4 F 07/31/17 12:00 Pulse 60 07/31/17 12:00 Resp 16 07/31/17 12:00 BP 107/44 07/31/17 12:00 Pulse Ox 97 07/31/17 12:00 Intake & Output 07/30/17 07/31/17 07/31/17 18:59 06:59 18:59 Intake Total 654 Output Total 1000 Balance 654 -1000 Intake: Oral 654 Output: Other 1000 Other: Voiding Method Toilet Toilet Toilet # Voids 0 0 ABP, PAP, CO, CI - Last Documented Arterial Blood Pressure 147/32 Pulmonary Artery Pressure 18/5 Cardiac Output 4.3 Cardiac Index 2.3 - Exam No acute distress, oriented 3. HEENT examination is grossly unremarkable. Mucous membranes are moist. No oral lesions. Neck supple. Full range of motion. No adenopathy or thyromegaly. Neck veins are flat. Cardiovascular examination reveals regular rhythm rate. S1-S2 normal. No S3- S4 or murmur. Lungs reveal a few scattered rhonchi. No wheezes or crackles. Breath sounds are equal. Abdomen soft bowel sounds are heard. No masses or tenderness. Extremities are intact. No cyanosis clubbing or edema. Skin without rash. Neurologic examination nonfocal. - Labs CBC & Chem 7: 07/31/17 05:33 07/31/17 05:33 Labs: Abnormal Lab Results - Last 24 Hours (Table) 07/30/17 07/30/17 07/30/17 Range/Units 14:18 16:50 20:36 RBC (3.80-5.40) m/uL Hgb (11.4-16.0) gm/dL Hct (34.0-46.0) % Sodium (137-145) mmol/L BUN (7-17) mg/dL Creatinine (0.52-1.04) mg/dL POC Glucose (mg/dL) 206 H 160 H 209 H (75-99) mg/dL AST (14-36) U/L Total Protein (6.3-8.2) g/dL Albumin (3.5-5.0) g/dL 07/31/17 07/31/17 07/31/17 Range/Units 05:33 05:33 06:26 RBC 2.40 L (3.80-5.40) m/uL Hgb 7.4 L (11.4-16.0) gm/dL Hct 23.2 L (34.0-46.0) % Sodium 136 L (137-145) mmol/L BUN 36 H (7-17) mg/dL Creatinine 5.68 H* (0.52-1.04) mg/dL POC Glucose (mg/dL) 105 H (75-99) mg/dL AST 42 H (14-36) U/L Total Protein 5.5 L (6.3-8.2) g/dL Albumin 3.2 L (3.5-5.0) g/dL Assessment and Plan (1) History of myocardial infarction in adulthood Status: Acute (2) Status post coronary artery bypass grafting Status: Acute (3) Acute on chronic renal failure Status: Acute (4) Anemia Status: Acute (5) Chest pain Status: Acute (6) Chronic renal failure syndrome Status: Acute (7) Congestive heart failure Status: Acute (8) Diabetes Status: Acute (9) ESRD (end stage renal disease) Status: Acute (10) Fluid overload Status: Acute (11) HTN (hypertension) Status: Acute (12) NSTEMI (non-ST elevated myocardial infarction) Status: Acute (13) Non-Q wave infarction Status: Acute (14) Pulmonary edema Status: Acute (15) Triple vessel coronary artery disease Status: Acute (16) UTI (urinary tract infection) Status: Acute Plan: Plan dated 07/31/2017 The patient continues to improve. We'll continue with oxygen therapy bronchodilators dialysis incentive spirometry and deep breathing coughing clearing secretions and other modalities to help her be discharged as soon as possible. Currently the patient's hemodynamics are stable and her respiratory status seems very stable. She is being readied for possible discharge in next day or so. Time with Patient: Less than 30
[2017-07-31] MEDS: DOPamine DRIP 800 MG in DEXTROSE/WATER 1 500ML.BAG IV SCH (14:51)
[2017-07-31 16:42] LABS: Glucose,Whole Blood 90 mg/dL (75-99)
--- NOTE | 2017-07-31 18:58 | PN ---
PROGRESS NOTE . INTERVAL HISTORY: The patient is seen for followup for end-stage renal disease. She is status post coronary artery bypass surgery. Today, patient is sitting up in a bedside chair. She has had her dialysis this morning with a short treatment and patient will be dialyzed on her regular schedule tomorrow. She has been anemic, however, hemoglobin has not dropped further significantly. There is no active bleeding noted. The patient is maintained on Aranesp. The patient denies any significant shortness of breath. ON EXAMINATION: Blood pressure is 107/44, heart rate 60 per minute. She is afebrile. Examination of the heart S1, S2. Examination of the lungs bilateral breath sounds are heard. Decreased breath sounds at bases. Abdomen is soft, nontender. Examination lower extremity shows bilateral extremities to be currently with SCDs. LABS SHOW: Potassium 4.1, hemoglobin 7.4 g/dL. ASSESSMENT: 1. End-stage renal disease, on hemodialysis. Patient will be dialyzed again tomorrow. 2. Anemia with no active bleeding noted. We will most likely transfuse 1 unit packed RBCs with hemodialysis in a.m. 3. Status post coronary artery bypass surgery. Doing really very well. 4. Chronic kidney disease bone mineral disorder. Maintained on PhosLo and vitamin D3. 5. Dyslipidemia, currently on Lipitor. PLAN: Repeat dialysis tomorrow morning. Continue Aranesp. We will likely transfuse 1 unit packed RBCs with hemodialysis in a.m. MMSIMONL / RAJESHN: [id number] /
[2017-07-31 20:52] LABS: Glucose,Whole Blood 76 mg/dL (75-99)
[2017-07-31] MEDS: SENNOSIDES-DOCUSATE SODIUM 1 EACH TAB PO SCH (21:48)
[2017-07-31 22:44] VITALS: RESP 18
[2017-08-01 06:06] LABS: Glucose,Whole Blood 73 mg/dL (75-99)
[2017-08-01] MEDS: INSULIN LISPRO (humaLOG) 300 UNIT/3 ML VIAL SQ SCH ×2 (06:19→12:12)
[2017-08-01] MEDS: INSULIN GLARGINE 100 UNIT/ML 10 ML VIAL SQ SCH (06:42)
[2017-08-01] MEDS: PANTOPRAZOLE 40 MG TABLET PO SCH (06:42)
[2017-08-01] MEDS: FERROUS SULFATE 325 MG TAB PO SCH (06:42)
[2017-08-01] MEDS: CALCIUM ACETATE 667 MG CAP PO SCH ×2 (06:42→12:12)
[2017-08-01 07:08] LABS: Basophils % (A) 1 %; CH 30.9; CHCM 32.4; Eosinophils # (A) 0.5 k/uL (0-0.7); Eosinophils % (A) 7 %; HCT 24.6 % (34.0-46.0); HDW 3.03; HGB 7.7 gm/dL (11.4-16.0); Hypochromasia Slight; Luc # (Auto) 0.28; Luc % (Auto) 4; Lymphocytes # (A) 1.4 k/uL (1.0-4.8); Lymphocytes % (A) 18 %; MCH 30.1 pg (25.0-35.0); MCHC 31.3 g/dL (31.0-37.0); MCV 96.2 fL (80.0-100.0); Mean Platelet Volume 8.9; Monocytes # (A) 0.5 k/uL (0-1.0); Monocytes % (A) 6 %; Neutrophils # (A) 4.9 k/uL (1.3-7.7); Neutrophils % (A) 65 %; RBC 2.55 m/uL (3.80-5.40); RDW 15.2 % (11.5-15.5); WBC 7.6 k/uL (3.8-10.6)
[2017-08-01 07:32] LABS: Calcium 9.5 mg/dL (8.4-10.2); Potassium 3.6 mmol/L (3.5-5.1); Total Bilirubin 0.4 mg/dL (0.2-1.3); Total Protein 5.6 g/dL (6.3-8.2)
[2017-08-01 07:47] LABS: Glucose,Whole Blood 230 mg/dL (75-99)
--- NOTE | 2017-08-01 07:57 | XR ---
EXAMINATION TYPE: XR chest 2V DATE OF EXAM: 08/01/2017 COMPARISON: 07/30/2017 HISTORY: Shortness of breath FINDINGS: There are bilateral pleural effusions with cardiomegaly and bibasilar infiltrate. There is a diffuse interstitial pattern. Postsurgical changes noted. Arthropathy of the shoulders. IMPRESSION: 1. Bilateral infiltrate and pleural effusion. Correlate for CHF.
[2017-08-01] MEDS: ASPIRIN 325 MG TAB PO SCH (09:03)
[2017-08-01] MEDS: CHOLECALCIFEROL 1,000 UNIT TAB PO SCH (09:03)
[2017-08-01] MEDS: CLOPIDOGREL 75 MG TAB PO SCH (09:03)
[2017-08-01] MEDS: HEPARIN SODIUM,PORCINE 5,000 UNIT/ML 1 ML VIAL SQ SCH (09:03)
[2017-08-01] MEDS: CITALOPRAM HYDROBROMIDE 20 MG TAB PO SCH (09:03)
[2017-08-01] MEDS: ATORVASTATIN 40 MG TAB PO SCH (09:03)
[2017-08-01] MEDS: CYANOCOBALAMIN 500 MCG TAB PO SCH (09:04)
[2017-08-01] MEDS: METOPROLOL TARTRATE 25 MG TAB PO SCH (09:04)
[2017-08-01] MEDS: FOLIC ACID-VIT B COMPLEX-VIT C 1 CAP PO SCH (09:04)
--- NOTE | 2017-08-01 09:09 | P.PN ---
Addendum entered and electronically signed by Bon Ardon LINTER SAW SHARPENERSarahC 08/01/17 10: 52: Plan: 11. We will hold off on transfusing any blood products at this time. We will monitor her CBC daily. Original Note: <oBn Ardon - Last Filed: 08/01/17 08:54> Subjective Principal diagnosis: Symptomatic multivessel coronary artery disease. History of non-ST elevation myocardial infarction, history of coronary artery disease with previously placed stents. History of anemia of chronic disease. History of congestive heart failure. End stage renal disease. Hyperlipidemia. POD #5, off-pump coronary artery bypass grafting 3 with left internal mammary artery to the left anterior descending coronary artery, a reverse greater saphenous vein graft to his obtuse marginal coronary artery and to his posterior descending coronary artery. Endovascular vein harvest of her left greater saphenous vein, intraoperative epi-aortic ultrasound and transesophageal echocardiogram by anesthesia. Patient is awake and alert, oriented 3. He is lying in bed and states she "feels tired today". No acute distress. She reports she ambulated in the hallway yesterday admitted from her room down to the next room. Objective - Vital Signs Vital signs: Vital Signs Temp 97.3 F L 08/01/17 02:52 Pulse 66 08/01/17 02:52 Resp 18 08/01/17 02:52 BP 137/61 08/01/17 02:52 Pulse Ox 94 L 08/01/17 02:52 Intake & Output 07/31/17 08/01/17 08/01/17 18:59 06:59 18:59 Intake Total 200 Output Total 1000 Balance -800 Weight 83.8 kg Intake: Oral 200 Output: Other 1000 Other: Voiding Method Toilet Toilet ABP, PAP, CO, CI - Last Documented Arterial Blood Pressure 147/32 Pulmonary Artery Pressure 18/5 Cardiac Output 4.3 Cardiac Index 2.3 - Constitutional General appearance: Present: cooperative, no acute distress, obese - EENT Eyes: Present: PERRLA, normal appearance ENT: Present: hearing grossly normal - Neck Details: No JVD present - Respiratory Details: Lung sounds are essentially clear throughout, diminished to her bilateral bases. Respirations are symmetrical and nonlabored. Oxygen saturation are 94% on room air. She is achieving 750-1000 mL on her incentive spirometry. - Cardiovascular Details: Regular rhythm and rate. S1 and S2 present, positive systolic murmur 2/6, negative for S3 or gallop. AV fistula to her left upper arm with good thrill and bruit. Remote telemetry showing normal sinus rhythm heart rate 63. +1 generalized edema. Sternum stable. Heart hugger in place and patient is demonstrating appropriate use. Knee-high MAAME hose and sequential compression devices in place from her bilateral lower extremities. - Gastrointestinal Gastrointestinal Comment(s): Abdomen is soft, nontender and nondistended. Active bowel sounds to all 4 abdominal quadrants. Tolerating her diet. Bowel movement yesterday 07/31/2017. - Genitourinary Genitourinary Comment(s): She is scheduled for hemodialysis today. - Integumentary Integumentary Comment(s): Midline sternal incision clean dry and well approximated. Dermabond dressing clean and dry. Left lower extremity EVH site clean dry and well approximated. - Neurologic Neurologic Comment(s): No focal deficits. Neurologic: Present: CNII-XII intact - Musculoskeletal Musculoskeletal: Present: generalized weakness, strength equal bilaterally - Psychiatric Psychiatric: Present: A&O x's 3, appropriate affect, intact judgment & insight - Allied health notes Allied health notes reviewed: nursing - Labs CBC & Chem 7: 08/01/17 06:32 08/01/17 06:32 Labs: Abnormal Lab Results - Last 24 Hours (Table) 07/30/17 08/01/17 08/01/17 Range/Units 11:49 06:05 06:32 RBC 2.55 L (3.80-5.40) m/uL Hgb 7.7 L (11.4-16.0) gm/dL Hct 24.6 L (34.0-46.0) % Chloride (98-107) mmol/L BUN (7-17) mg/dL Creatinine (0.52-1.04) mg/dL Glucose (74-99) mg/dL POC Glucose (mg/dL) 230 H 73 L (75-99) mg/dL Total Protein (6.3-8.2) g/dL Albumin (3.5-5.0) g/dL 08/01/17 Range/Units 06:32 RBC (3.80-5.40) m/uL Hgb (11.4-16.0) gm/dL Hct (34.0-46.0) % Chloride 97 L (98-107) mmol/L BUN 31 H (7-17) mg/dL Creatinine 5.25 H* (0.52-1.04) mg/dL Glucose 69 L (74-99) mg/dL POC Glucose (mg/dL) (75-99) mg/dL Total Protein 5.6 L (6.3-8.2) g/dL Albumin 3.2 L (3.5-5.0) g/dL - Imaging and Cardiology Chest x-ray: report reviewed, image reviewed Assessment and Plan (1) History of myocardial infarction in adulthood Status: Acute (2) Anemia of chronic disease Status: Acute (3) Congestive heart failure Status: Acute (4) Coronary artery disease Status: Acute (5) Diabetes Status: Acute (6) ESRD (end stage renal disease) Status: Acute (7) Hyperlipemia Status: Acute (8) Left carotid bruit Status: Acute (9) Status post coronary artery bypass grafting Status: Acute Plan: 1. Continue aspirin, statin, heparin subcu, beta tone. Will maximize beta tone therapy as tolerated. 2. Encourage incentive spirometer use every hour while awake. 3. Pulmonary management per Dr. Madera recommendations. 4. Hemodialysis management per nephrology. 5. GI/DVT prophylaxis. 6. Insulin management per primary care service. 7. Will monitor daily labs and chest x-rays. 8. Physical therapy consulted, increase activity as tolerated. 9. Dr. Coombs recommendations noted. 10. Further recommendations as patient progresses. Discharge planning is in place, and may be discharged to inpatient rehab for subacute rehab when bed available. Time with Patient: Greater than 30 <Trey Arcos - Last Filed: 08/01/17 11:14> Objective - Vital Signs Vital signs: Vital Signs Temp 97.2 F L 08/01/17 08:00 Pulse 75 08/01/17 09:50 Resp 18 08/01/17 02:52 BP 126/58 08/01/17 08:00 Pulse Ox 94 L 08/01/17 09:50 Intake & Output 07/31/17 08/01/17 08/01/17 18:59 06:59 18:59 Intake Total 200 Output Total 1000 Balance -800 Weight 83.8 kg Intake: Oral 200 Output: Other 1000 Other: Voiding Method Toilet Toilet # Voids 0 ABP, PAP, CO, CI - Last Documented Arterial Blood Pressure 147/32 Pulmonary Artery Pressure 18/5 Cardiac Output 4.3 Cardiac Index 2.3 - Labs CBC & Chem 7: 08/01/17 06:32 08/01/17 06:32 Labs: Abnormal Lab Results - Last 24 Hours (Table) 07/30/17 08/01/17 08/01/17 Range/Units 11:49 06:05 06:32 RBC 2.55 L (3.80-5.40) m/uL Hgb 7.7 L (11.4-16.0) gm/dL Hct 24.6 L (34.0-46.0) % Chloride (98-107) mmol/L BUN (7-17) mg/dL Creatinine (0.52-1.04) mg/dL Glucose (74-99) mg/dL POC Glucose (mg/dL) 230 H 73 L (75-99) mg/dL Total Protein (6.3-8.2) g/dL Albumin (3.5-5.0) g/dL 08/01/17 Range/Units 06:32 RBC (3.80-5.40) m/uL Hgb (11.4-16.0) gm/dL Hct (34.0-46.0) % Chloride 97 L (98-107) mmol/L BUN 31 H (7-17) mg/dL Creatinine 5.25 H* (0.52-1.04) mg/dL Glucose 69 L (74-99) mg/dL POC Glucose (mg/dL) (75-99) mg/dL Total Protein 5.6 L (6.3-8.2) g/dL Albumin 3.2 L (3.5-5.0) g/dL Assessment and Plan Plan: The patient was seen and examined. I agree with the above assessment and plan. She is scheduled for hemodialysis today. We will continue to encourage incentive spirometry and ambulation. Her hemoglobin today is 7.7. We will hold off on any blood transfusions for now. She is scheduled to be transferred to inpatient rehab today.
[2017-08-01] MEDS ORDERED: INSULIN GLARGINE 100 UNIT/ML 10 ML VIAL SQ SCH (10:22)
--- NOTE | 2017-08-01 10:22 | P.PN ---
Subjective Principal diagnosis: 72-year-old female who was admitted to the hospital on 07/27/2017 for CABG. The patient underwent coronary artery bypass grafting x3 vessels, off pump , with BARROS to the LAD, a reverse greater saphenous vein graft to the obtuse marginal coronary artery and the posterior descending coronary artery. The patient was seen and examined this morning by Dr. Malone. The patient underwent an additional dialysis session yesterday for an elevated creatinine of 5.68. Her creatinine this morning is 5.25. She is scheduled to have dialysis again today. Her hemoglobin has increased from 7.4 yesterday to 7.7 today. Per nephrology, the patient may get a unit of packed RBCs today with dialysis. The patient remains on a humalog sliding scale. Her Lantus was increased to 30 units 2 days ago due to hyperglycemia. The patient did have an episode of hypoglycemia this morning with blood sugars of 73 and 69. We will decrease her Lantus dose to 25 units. She states she has some pain and feels sore. She is tolerating her diet without nausea or vomiting, but states she doesn't have much of an appetite. She denies chest pain or shortness of breath. She remains afebrile and her vital signs are stable. She is maintaining oxygen saturations greater than 92% on room air. The patient is medically cleared for DC from a medical standpoint per Dr. Malone Objective - Vital Signs Vital signs: Vital Signs Temp 97.3 F L 08/01/17 02:52 Pulse 75 08/01/17 09:50 Resp 18 08/01/17 02:52 BP 137/61 08/01/17 02:52 Pulse Ox 94 L 08/01/17 09:50 Intake & Output 07/31/17 08/01/17 08/01/17 18:59 06:59 18:59 Intake Total 200 Output Total 1000 Balance -800 Weight 83.8 kg Intake: Oral 200 Output: Other 1000 Other: Voiding Method Toilet Toilet ABP, PAP, CO, CI - Last Documented Arterial Blood Pressure 147/32 Pulmonary Artery Pressure 18/5 Cardiac Output 4.3 Cardiac Index 2.3 - Exam GENERAL: Alert and oriented. Appears in no acute distress. Pleasant. Patient with chest splinting device/heart hugger in place. RESPIRATORY: Lungs clear bilaterally. No use of accessory muscles. Patient maintaining oxygen saturation greater than 92% on room air. 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 S1 and S2 noted. No murmurs auscultated. No JVD noted. EXTREMITIES: No edema noted. Palpable pedal pulses +2. AV Fistula to left arm noted. : [place] intact with clear yellow urine. ABDOMEN: No distention noted. Abdomen soft and round. Normal active bowel sounds auscultated 4 quadrants. No pain or tenderness noted upon palpation - Labs CBC & Chem 7: 08/01/17 06:32 08/01/17 06:32 Labs: Abnormal Lab Results - Last 24 Hours (Table) 07/30/17 08/01/17 08/01/17 Range/Units 11:49 06:05 06:32 RBC 2.55 L (3.80-5.40) m/uL Hgb 7.7 L (11.4-16.0) gm/dL Hct 24.6 L (34.0-46.0) % Chloride (98-107) mmol/L BUN (7-17) mg/dL Creatinine (0.52-1.04) mg/dL Glucose (74-99) mg/dL POC Glucose (mg/dL) 230 H 73 L (75-99) mg/dL Total Protein (6.3-8.2) g/dL Albumin (3.5-5.0) g/dL 08/01/17 Range/Units 06:32 RBC (3.80-5.40) m/uL Hgb (11.4-16.0) gm/dL Hct (34.0-46.0) % Chloride 97 L (98-107) mmol/L BUN 31 H (7-17) mg/dL Creatinine 5.25 H* (0.52-1.04) mg/dL Glucose 69 L (74-99) mg/dL POC Glucose (mg/dL) (75-99) mg/dL Total Protein 5.6 L (6.3-8.2) g/dL Albumin 3.2 L (3.5-5.0) g/dL Assessment and Plan Plan: ASSESSMENT: -History of coronary artery disease previous stent placement -Status post coronary artery bypass grafting x3 vessels -End stage renal disease, on hemodialysis -Chronic diastolic heart failure -Anemia of chronic disease, related to chronic renal failure -History diabetes mellitus, type II -Hyperglycemia, related to uncontrolled diabetes mellitus type 2, recent hemoglobin A1C was 9.2% -Hypoglycemia, likely related to increased dose of Lantus and decreased oral intake PLAN: -Continue post op management per cardiothoracic surgery -Continue hemodialysis 3x weekly and PRN. Patient to receive dialysis today. -DVT prophylaxis: Patient receiving heparin 5000 units subcu every 8 hours -GI prophylaxis: Patient receiving Protonix 40 mg IV daily -Monitor vital signs and address as appropriate -Continue to monitor capillary blood glucose -Continue humalog sliding scale -Decrease Lantus to 25 units Q24 hours due to hypoglycemia -Monitor labs -Monitor hemoglobin. Continue with ferrous sulfate 325mg PO BID -Continue PT/OT -Dr. Les Chen, consulted for possible inpatient rehab -Patient is cleared for discharge per Dr. Malone from a medical standpoint The above impression and plan of care have been discussed and directed by signing physician. Staci Tamayo, nurse practitioner, acting as scribe for signing physician.
[2017-08-01 10:47] VITALS: PULSE 61; TEMP 97.2
--- NOTE | 2017-08-01 12:28 | P.DS ---
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 Consult: post cardiac surgery Do you want consulting provider notified?: Yes 07/27/17 14:49 Consult Physician Routine Consulting Provider: Jacy Brooks Consult Reason/Comments: CKD Do you want consulting provider notified?: Yes 07/30/17 09:52 Consult Physician Routine Consulting Provider: Les Chen Consult Reason/Comments: Inpatient rehab placement evaluation Do you want consulting provider notified?: Yes, Notify in am Primary care physician: Stated None - Discharge Diagnosis(es) (1) History of myocardial infarction in adulthood Current Visit: Yes Status: Acute (2) Anemia of chronic disease Current Visit: No Status: Acute (3) Congestive heart failure Current Visit: No Status: Acute (4) Coronary artery disease Current Visit: No Status: Acute (5) Diabetes Current Visit: No Status: Acute (6) ESRD (end stage renal disease) Current Visit: No Status: Acute (7) Hyperlipemia Current Visit: No Status: Acute (8) Left carotid bruit Current Visit: No Status: Acute (9) Status post coronary artery bypass grafting Current Visit: Yes Status: Acute Hospital Course: FINAL DIAGNOSIS: 1. Symptomatic multivessel coronary artery disease 2. History of non-ST elevation myocardial infarction 3. History of coronary artery disease with previously placed stents 4. History of anemia of chronic disease 5. History of congestive heart failure 6. End-stage renal disease, hemodialysis Monday, and Monday 7. Hyperlipidemia 8. Diabetes mellitus type 2 9. Hypertension PRINCIPAL PROCEDURE: 1. Off-pump coronary artery bypass grafting 3 with placement of her left internal mammary artery to her left anterior descending coronary artery, a reverse greater saphenous vein graft placed to her obtuse marginal coronary artery and a posterior descending coronary artery. 2. Endovascular vein harvest of her left greater saphenous vein. 3. Intraoperative transesophageal echocardiogram performed by anesthesia. HISTORY OF PRESENT ILLNESS: This is a 72-year-old female patient who is followed by Dr. Jasbir Malone on an outpatient basis. The patient has a history of multiple medical problems including a history of non-ST elevation myocardial infarction, coronary artery disease with previously placed stents to her left anterior descending coronary artery and right coronary artery, hypertension, hyperlipidemia, diabetes mellitus type 2, anemia of chronic disease, history of congestive heart failure, and end-stage renal disease with hemodialysis on Tuesdays, and Saturdays. The patient has had multiple admissions since February 2016 with stent placements to her right coronary artery and mid left anterior descending coronary artery. She was admitted to the hospital on 07/15/2017 with complaints of chest pain. She was found to have some ST changes in her lateral leads with a 12-lead EKG and had positive troponins as high as 23.0 ng/ml at that time. Dr. Granados from cardiothoracic surgery was consulted to discuss options of coronary artery bypass grafting surgery during the admission. Risks and benefits of surgery were discussed with the patient and due to the patient receiving Plavix she was scheduled as an outpatient for coronary artery bypass grafting surgery.. HOSPITAL COURSE: The patient was admitted to the hospital and after obtaining consent she was taken to the operating room where Dr. Faisal Granados performed an elective off-pump coronary artery bypass grafting 3 with placement of her left internal mammary artery to her left anterior descending coronary artery, a reverse greater saphenous vein graft placed to her obtuse marginal coronary artery and a posterior descending coronary artery. She also had endoscopic vein harvest of her left greater saphenous vein, and an intraoperative transesophageal echocardiogram performed by anesthesia. She was transferred to the cardiovascular intensive care unit where she was recovered, monitored hemodynamically, and where she progressed cardiac rehabilitation phase 1. She was extubated on post day day #1, invasive lines were discontinued and she was subsequently transferred to [address] [place] [address] for further monitoring and rehabilitation. Discharge instructions have been reviewed with the patient and a project red arm band has been placed on the patient. The patient will be discharged today to [facility] inpatient rehab for further rehabilitation needs. COMPLICATIONS: There were no postoperative complications. CONSULTATIONS: 1. Dr. Jasbir Malone for medical management 2. Dr. Field for cardiology management 3. Dr. Brooks for nephrology/dialysis management 4. Dr. Smith for pulmonary and ventilator management DISCHARGE INSTRUCTIONS: 1. No driving for 4 weeks, or until physician gives their ok. 2. The patient should sleep in their own bed, no medical bed needed. 3. Stairs are not an issue. If the bedroom is upstairs, it is advised that the patient go up at night and down in the morning for the first week. Go slowly, using handrail and take 1 step at a time. 4. MAAME hose are to be worn for 30 days or until physician discontinues. 5. Heart hugger is to be worn 100% of the time until physician discontinues.( except when showering) 6. No lifting, pushing, or pulling more than 10 pounds for 12 weeks. The physician will advise of any restriction changes. 7. The patient is expected to continue the prescribed walking program. 8. Continue pain control per as needed orders. 9. Continue with incentive spirometry and splinting/heart hugger until otherwise directed by the physician. 10. Must shower daily using liquid antibacterial soap and a separate white washcloth for each individual incision. 11. Routine sternal incision care, no ointments, lotions or powders on the incisions. 12. Please notify surgeon/nurse practitioner for temperature greater than 101F or purulent drainage from incisions 13. Prescriptions for first 30 days given per cardiac surgery service. After 30 days, all prescription refills obtained through cardiology/primary care physician. 14. A red arm and has been placed on this patient it should be worn for 30 days post surgery and will be removed by the cardiothoracic surgeons. If an ER visit is necessary, please make sure the number on the red arm band is called. 15. Physical therapy and occupational therapy to evaluate and treat. 16. Hemodialysis management per nephrology. REHAB SERVICES TO PROVIDE: RN SKILLED CARE SERVICES FOR POST-OP SURGICAL PATIENTS WITH THE FOLLOWING: Coronary Artery Bypass Surgery (CABG), Mitral Valve Replacement/Repair ( MVR), Aortic Valve Replacement/Repair (AVR) RN TO CONTINUE EDUCATION FROM ``ROAD TO A HEALTH HEART PATIENT EDUCATION MANUAL" (GIVEN TO PATIENT IN THE HOSPITAL) MEDICATION RECONCILIATION WITH EDUCATION NEEDED ON FIRST HOME VISIT EMPHASIZE IMPORTANCE OF WEARING BREAST SUPPORT/HEART HUGGER ENCOURAGE USE OF INCENTIVE SPIROMETER 10 X EVERY HOUR WHILE AWAKE ENCOURAGE UTILIZATION OF LOWER EXTREMITY COMPRESSION STOCKINGS/MAAME HOSE and ELEVATE LEGS ABOVE LEVEL OF HEART WHILE AT REST. ENCOURAGE AMBULATION 3-5x/day INCREASING TOLERATES, WHILE AVOID EXTREMES IN TEMPERATURE LABORATORY: CBC, CMP TO BE DRAWN ON THE THIRD DAY HOME, 08/04/2017 (RAN STAT ) FAX RESULTS TO [phone]. TELEHEALTH PARAMETERS: WEIGHT: NOTIFY MD OF WEIGHT GAIN OF 2 LBS IN 24 HOURS OR 5 LBS IN ONE WEEK HR: NOTIFY MD OF HR <55 BPM OR HR>100 BPM BP: NOTIFY MD IF BP <90/55 OR BP>140/100 O2 SAT: NOTIFY MD IF PO2<93% ON ROOM AIR SEND LAB REPORT TO RELOCATION SERVICES SPECIALIST AND CARDIOVASCULAR SURGEON THE FIRST WEEK OF CARE AND THEN BI-WEEKLY. PLEASE ADDITIONALLY COMMUNICATE ANY ABNORMALS AND NEW FINDINGS TO THE SURGEONS OFFICE. Plan - Discharge Summary New Discharge Prescriptions: New HYDROcodone/APAP 5-325MG [[place] 5-325] 2 each PO Q4HR PRN tab PRN Reason: Severe Pain Heparin Sodium,Porcine [Heparin Sodium] 5,000 unit SQ Q8HR vial Atorvastatin [Lipitor] 40 mg PO DAILY tab Bisacodyl [Dulcolax] 10 mg RECTAL DAILY PRN suppositor PRN Reason: Constipation Darbepoetin Luis Manuel [Aranesp] 40 mcg SQ Q7D syr Insulin Glargine [Lantus] 25 unit SQ Q24H vial INSULIN LISPRO (humaLOG) [humaLOG (formulary)] 0 unit SQ ACHS vial Metoprolol Tartrate [Lopressor] 25 mg PO BID tab Pantoprazole [Protonix] 40 mg PO AC-BRKFST tab Sennosides-Docusate Sodium [Senokot-S] 2 each PO HS tab Continue Folic Acid-Vit B Complex-Vit C [Nephrocaps] 1 cap PO DAILY Citalopram Hydrobromide [CeleXA] 20 mg PO DAILY Clopidogrel [Plavix] 75 mg PO DAILY #30 tab Meclizine [Antivert] 25 mg PO BID PRN PRN Reason: Vertigo Ondansetron Odt [Zofran ODT] 4 mg PO Q8HR PRN #10 tab PRN Reason: Nausea vomiting Calcium Acetate [PhosLo] 1,334 mg PO AC-TID cap Cholecalciferol [Vitamin D3] 1,000 unit PO DAILY tab Cyanocobalamin [Vitamin B-12] 1,000 mcg PO DAILY tab Ferrous Sulfate [Iron (65 MG Elemental)] 325 mg PO BID-W/MEALS tab Aspirin 325 mg PO DAILY Discontinued Isosorbide Mononitrate ER [Imdur] 30 mg PO DAILY Nitroglycerin Sl Tabs [Nitrostat] 0.4 mg SUBLINGUAL Q5M PRN #25 tab PRN Reason: Chest Pain Atorvastatin [Lipitor] 80 mg PO HS #30 tab Furosemide [Lasix] 40 mg PO DAILY Insulin Glargine,Hum.rec.anlog [Lantus Solostar] 40 unit SQ QAM Carvedilol [Coreg*] 25 mg PO BID-W/MEALS tab Discharge Medication List Folic Acid-Vit B Complex-Vit C [Nephrocaps] 1 cap PO DAILY 06/06/16 [History] Citalopram Hydrobromide [CeleXA] 20 mg PO DAILY 08/05/16 [History] Clopidogrel [Plavix] 75 mg PO DAILY #30 tab 11/22/16 [Rx] Meclizine [Antivert] 25 mg PO BID PRN 04/21/17 [History] Ondansetron Odt [Zofran ODT] 4 mg PO Q8HR PRN #10 tab 06/24/17 [Rx] Calcium Acetate [PhosLo] 1,334 mg PO AC-TID cap 07/18/17 [Rx] Cholecalciferol [Vitamin D3] 1,000 unit PO DAILY tab 07/18/17 [Rx] Cyanocobalamin [Vitamin B-12] 1,000 mcg PO DAILY tab 07/18/17 [Rx] Ferrous Sulfate [Iron (65 MG Elemental)] 325 mg PO BID-W/MEALS tab 07/18/17 [Rx ] Aspirin 325 mg PO DAILY 07/21/17 [History] Atorvastatin [Lipitor] 40 mg PO DAILY tab 08/01/17 [Rx] Bisacodyl [Dulcolax] 10 mg RECTAL DAILY PRN suppositor 08/01/17 [Rx] Darbepoetin Luis Manuel [Aranesp] 40 mcg SQ Q7D syr 08/01/17 [Rx] HYDROcodone/APAP 5-325MG [[place] 5-325] 2 each PO Q4HR PRN tab 08/01/17 [Rx] Heparin Sodium,Porcine [Heparin Sodium] 5,000 unit SQ Q8HR vial 08/01/17 [Rx] INSULIN LISPRO (humaLOG) [humaLOG (formulary)] 0 unit SQ ACHS vial 08/01/17 [Rx ] Insulin Glargine [Lantus] 25 unit SQ Q24H vial 08/01/17 [Rx] Metoprolol Tartrate [Lopressor] 25 mg PO BID tab 08/01/17 [Rx] Pantoprazole [Protonix] 40 mg PO AC-BRKFST tab 08/01/17 [Rx] Sennosides-Docusate Sodium [Senokot-S] 2 each PO HS tab 08/01/17 [Rx] Follow up Appointment(s)/Referral(s): Tina Smith MD [STAFF PHYSICIAN] - 08/21/17 2:00 pm Jacy Brooks MD [STAFF PHYSICIAN] - 1 Week (please make appointment when discharged from rehab) Jasbir Malone DO [Doctor of Osteopathic Medicine] - 08/15/17 1:00 pm Faisal Granados MD [STAFF PHYSICIAN] - 09/06/17 1:15 pm Migel Gross MD [STAFF PHYSICIAN] - 08/28/17 2:15 pm Activity/Diet/Wound Care/Special Instructions: DISCHARGE INSTRUCTIONS: 1. No driving for 4 weeks, or until physician gives their ok. 2. The patient should sleep in their own bed, no medical bed needed. 3. Stairs are not an issue. If the bedroom is upstairs, it is advised that the patient go up at night and down in the morning for the first week. Go slowly, using handrail and take 1 step at a time. 4. MAAME hose are to be worn for 30 days or until physician discontinues. 5. Heart hugger is to be worn 100% of the time until physician discontinues.( except when showering) 6. No lifting, pushing, or pulling more than 10 pounds for 12 weeks. The physician will advise of any restriction changes. 7. The patient is expected to continue the prescribed walking program. 8. Continue pain control per as needed orders. 9. Continue with incentive spirometry and splinting/heart hugger until otherwise directed by the physician. 10. Must shower daily using liquid antibacterial soap and a separate white washcloth for each individual incision. 11. Routine sternal incision care, no ointments, lotions or powders on the incisions. 12. Please notify surgeon/nurse practitioner for temperature greater than 101F or purulent drainage from incisions 13. Prescriptions for first 30 days given per cardiac surgery service. After 30 days, all prescription refills obtained through cardiology/primary care physician. 14. A red arm and has been placed on this patient it should be worn for 30 days post surgery and will be removed by the cardiothoracic surgeons. If an ER visit is necessary, please make sure the number on the red arm band is called. 15. Physical therapy and occupational therapy to evaluate and treat. 16. Hemodialysis management per nephrology. REHAB SERVICES TO PROVIDE: RN SKILLED CARE SERVICES FOR POST-OP SURGICAL PATIENTS WITH THE FOLLOWING: Coronary Artery Bypass Surgery (CABG), Mitral Valve Replacement/Repair ( MVR), Aortic Valve Replacement/Repair (AVR) RN TO CONTINUE EDUCATION FROM ``ROAD TO A HEALTH HEART PATIENT EDUCATION MANUAL" (GIVEN TO PATIENT IN THE HOSPITAL) MEDICATION RECONCILIATION WITH EDUCATION NEEDED ON FIRST HOME VISIT EMPHASIZE IMPORTANCE OF WEARING BREAST SUPPORT/HEART HUGGER ENCOURAGE USE OF INCENTIVE SPIROMETER 10 X EVERY HOUR WHILE AWAKE ENCOURAGE UTILIZATION OF LOWER EXTREMITY COMPRESSION STOCKINGS/MAAME HOSE and ELEVATE LEGS ABOVE LEVEL OF HEART WHILE AT REST. ENCOURAGE AMBULATION 3-5x/day INCREASING TOLERATES, WHILE AVOID EXTREMES IN TEMPERATURE LABORATORY: CBC, CMP TO BE DRAWN ON THE THIRD DAY HOME, 08/04/2017 (RAN STAT ) FAX RESULTS TO [phone]. TELEHEALTH PARAMETERS: WEIGHT: NOTIFY MD OF WEIGHT GAIN OF 2 LBS IN 24 HOURS OR 5 LBS IN ONE WEEK HR: NOTIFY MD OF HR <55 BPM OR HR>100 BPM BP: NOTIFY MD IF BP <90/55 OR BP>140/100 O2 SAT: NOTIFY MD IF PO2<93% ON ROOM AIR SEND LAB REPORT TO RELOCATION SERVICES SPECIALIST AND CARDIOVASCULAR SURGEON THE FIRST WEEK OF CARE AND THEN BI-WEEKLY. PLEASE ADDITIONALLY COMMUNICATE ANY ABNORMALS AND NEW FINDINGS TO THE SURGEONS OFFICE. Discharge Disposition: TRANSFER TO SNF/ECF
--- NOTE | 2017-08-01 12:30 | P.PN ---
Subjective Principal diagnosis: CABG This is a 72-year-old female who is status post coronary artery bypass grafting surgery, she was seen and examined this morning, complaining of feeling mildly weak and dizzy when standing. Assisted from the bed to the chair. Complains of feeling tired. Blood pressure 126/60, heart rate in the 70s. Potassium 3.6, BUN 31, creatinine 5.2, hemoglobin 7.7. Objective - Vital Signs Vital signs: Vital Signs Temp 97.2 F L 08/01/17 08:00 Pulse 75 08/01/17 09:50 Resp 18 08/01/17 02:52 BP 126/58 08/01/17 08:00 Pulse Ox 94 L 08/01/17 09:50 Intake & Output 07/31/17 08/01/17 08/01/17 18:59 06:59 18:59 Intake Total 200 Output Total 1000 Balance -800 Weight 83.8 kg Intake: Oral 200 Output: Other 1000 Other: Voiding Method Toilet Toilet # Voids 0 ABP, PAP, CO, CI - Last Documented Arterial Blood Pressure 147/32 Pulmonary Artery Pressure 18/5 Cardiac Output 4.3 Cardiac Index 2.3 - Exam PHYSICAL EXAMINATION: HEENT: Head is atraumatic, normocephalic. Pupils equal, round. Neck is supple. There is no elevated jugular venous pressure. HEART EXAMINATION: Heart S1 S2 1 systolic murmur is heard CHEST EXAMINATION: Lungs are clear with diminished air entry to bilateral bases ABDOMEN: Soft, nontender. Bowel sounds are heard. No organomegaly noted. EXTREMITIES:[ 2+ peripheral pulses with evidence of peripheral edema , MAAME hose and sequential compression device in place to lower extremities. NEUROLOGIC patient is awake, alert and oriented -3. . - Labs CBC & Chem 7: 08/01/17 06:32 08/01/17 06:32 Labs: Abnormal Lab Results - Last 24 Hours (Table) 07/30/17 08/01/17 08/01/17 Range/Units 11:49 06:05 06:32 RBC 2.55 L (3.80-5.40) m/uL Hgb 7.7 L (11.4-16.0) gm/dL Hct 24.6 L (34.0-46.0) % Chloride (98-107) mmol/L BUN (7-17) mg/dL Creatinine (0.52-1.04) mg/dL Glucose (74-99) mg/dL POC Glucose (mg/dL) 230 H 73 L (75-99) mg/dL Total Protein (6.3-8.2) g/dL Albumin (3.5-5.0) g/dL 08/01/17 Range/Units 06:32 RBC (3.80-5.40) m/uL Hgb (11.4-16.0) gm/dL Hct (34.0-46.0) % Chloride 97 L (98-107) mmol/L BUN 31 H (7-17) mg/dL Creatinine 5.25 H* (0.52-1.04) mg/dL Glucose 69 L (74-99) mg/dL POC Glucose (mg/dL) (75-99) mg/dL Total Protein 5.6 L (6.3-8.2) g/dL Albumin 3.2 L (3.5-5.0) g/dL Assessment and Plan Plan: Assessment and plan #1 status post coronary artery bypass grafting surgery #2 anemia of chronic disease #3 diabetes #4 end-stage renal disease #5 hyperlipidemia Plan We will continue the patient on her current medications. She's been encouraged regarding the use of her incentive spirometry. Arrangements being made for possible inpatient rehab. We will continue to follow. DNP note has been reviewed, I agree with a documented findings and plan of care. Patient was seen and examined.
[2017-08-01 14:41] VITALS: BMI 33.2
[2017-08-01 15:54] LABS: Glucose,Whole Blood 60 mg/dL (75-99)
[2017-08-01 15:54] LABS: Glucose,Whole Blood 74 mg/dL (75-99)
[2017-08-01 16:39] LABS: Glucose,Whole Blood 71 mg/dL (75-99)
[2017-08-01 16:45] VITALS: BP 114/53
--- NOTE | 2017-08-01 19:45 | PN ---
PROGRESS NOTE DATE OF SERVICE: 08/01/2017. A 72-year-old female, postop day #5, status post multivessel bypass grafting. She had a recent non ST-segment elevation myocardial infarction. She has a history of CHF, end- stage renal disease currently on hemodialysis, type 2 diabetes mellitus and diabetic nephropathy as well as hyperlipidemia. The patient seems to be doing relatively well. She is feeling well. Her saturations on room air have been in the mid 90s. No complaints of shortness of breath, cough, wheezing. Not producing any phlegm. No nausea, vomiting, diarrhea. No chest pain or chest discomfort. PHYSICAL EXAMINATION: Current vital signs include temperature 97.2, heart rate 61, respiratory rate 18, blood pressure 126/58, mean 80 and a room air saturation of 93% to 94%. There is no acute distress. Looks well. HEENT: Grossly unremarkable. Mucous membranes are moist. No oral lesions. NECK: Supple. Full range of motion. No adenopathy or thyromegaly. Neck veins are flat. Cardiovascular reveals regular rhythm and rate. S1, S2 normal. No S3, S4 or murmur. Lungs reveal a few scattered rhonchi. No wheeze or crackles. ABDOMEN: Soft. Bowel sounds heard. EXTREMITIES: Intact. No cyanosis, clubbing or edema. SKIN: Without rash. LABS: Reviewed. White count 7.6, hemoglobin 7.2, hematocrit 24.6, platelet count 314,000. Sodium 137, potassium 3.6, chloride 97, CO2 29, anion gap is 11, BUN and creatinine 31 and 5.25. Microbiology is all negative. MEDICATIONS: Reviewed. Her chest x-ray is reviewed. It shows mild CHF with bilateral lower extremity infiltrates and some small effusions. ASSESSMENT: 1. History of myocardial infarction. 2. Status post bypass grafting. 3. Acute on chronic renal failure. 4. Anemia of chronic disease. 5. Chest pain. 6. Chronic renal failure syndrome. 7. Congestive heart failure. 8. Diabetes. 9. End-stage renal disease. 10.Fluid overload. 11.Hypertension. 12.Non ST-elevation myocardial infarction. 13.Triple-vessel coronary artery disease. 14.Urinary tract infection. PLAN: The patient seems to be doing relatively well. No additional recommendations are made. Prognosis is guarded. Chest x-ray shows what appears to be some mild CHF. The patient would probably benefit from additional diuretic. Will continue to follow. MMODL / IJN: [id number] /
[2017-08-02] MEDS ORDERED: INSULIN GLARGINE 100 UNIT/ML 10 ML VIAL SQ SCH (07:00)
--- NOTE | 2017-08-02 08:13 | PN ---
PROGRESS NOTE Patient is seen for followup for end-stage renal disease. She is currently sitting up in a bedside chair. The patient is comfortable. She denies any significant complaints except for significant weakness. The patient has walked and she tolerated the ambulation fairly well. PHYSICAL EXAMINATION: On examination, blood pressure is 114/53, heart rate 75 per minute. She is afebrile. EXAMINATION OF THE HEART: S1, S2. EXAMINATION OF THE LUNGS: Bilateral breath sounds are heard. Decreased breath sounds at bases. Examination of the lower extremity shows edema 1+ bilaterally. LABS: Labs show sodium 137, potassium 3.6. Hemoglobin 7.7 g/dL. ASSESSMENT: 1. End-stage renal disease, on hemodialysis on a Monday, , Monday schedule as outpatient. 2. Anemia with no active bleeding noted. Maintained on Aranesp. We will follow as outpatient. If hemoglobin drops further and we are not able to dialyze her as outpatient secondary to poor ultrafiltration and hypoperfusion, we will transfuse her. As long as the hemoglobin remains above 7.5, I will hold off on packed RBCs transfusion. 3. Status post coronary artery bypass surgery. 4. Chronic kidney disease bone mineral disorder. PLAN: Hemodialysis today. Follow up on the anemia as outpatient. MMODL / IJN: [id number] /
== END 2017-08-01 16:58 | DRG 235 ==
LOC: 2ORMAIN 05:46 → 6ICU 14:10 → 6SEL 07-29 16:33
PROVIDERS: ADMIT Thoracic Surgery (Cardiothoracic Vascular Surgery); ATTEND Thoracic Surgery (Cardiothoracic Vascular Surgery)
DX: I21.4 Non-ST elevation (NSTEMI) myocardial infarction (principal); N18.6 End stage renal disease; N17.9 Acute kidney failure, unspecified; I13.2 Hypertensive heart and chronic kidney disease with heart failure and with stage 5 chronic kidney disease, or end stage renal disease; E11.21 Type 2 diabetes mellitus with diabetic nephropathy; E11.51 Type 2 diabetes mellitus with diabetic peripheral angiopathy without gangrene; I48.0 Paroxysmal atrial fibrillation; I50.32 Chronic diastolic (congestive) heart failure; N39.0 Urinary tract infection, site not specified; D63.1 Anemia in chronic kidney disease; E11.22 Type 2 diabetes mellitus with diabetic chronic kidney disease; E11.649 Type 2 diabetes mellitus with hypoglycemia without coma; E11.65 Type 2 diabetes mellitus with hyperglycemia; E78.2 Mixed hyperlipidemia; I25.119 Atherosclerotic heart disease of native coronary artery with unspecified angina pectoris; I34.0 Nonrheumatic mitral (valve) insufficiency; I95.81 Postprocedural hypotension; Z79.02 Long term (current) use of antithrombotics/antiplatelets; Z79.82 Long term (current) use of aspirin; Z79.899 Other long term (current) drug therapy; Z80.1 Family history of malignant neoplasm of trachea, bronchus and lung; Z82.49 Family history of ischemic heart disease and other diseases of the circulatory system; Z83.3 Family history of diabetes mellitus; Z87.440 Personal history of urinary (tract) infections; Z87.891 Personal history of nicotine dependence; Z95.5 Presence of coronary angioplasty implant and graft; Z99.2 Dependence on renal dialysis
CPT/HCPCS: 36620; 71010; 71020; 80048; 80053; 82330; 82805; 83036; 83540; 83550; 83735; 84100; 85025; 85520; 85610; 85730; 86850; 86891; 86900; 86901; 86920; 90935; 94002; 94640; 94760

== ENCOUNTER 2018-01-28 15:07 | Emergency (ER) | payer MEDICARE, OTHER ==
[2018-01-28 15:16] VITALS: TEMP 98.5
[2018-01-28 15:41] VITALS: BP 204/82; PULSE 65; RESP 18
--- NOTE | 2018-01-28 15:55 | ED ---
General Adult HPI - General Chief complaint: Extremity Problem,Nontraumatic Stated complaint: finger infection Time Seen by Provider: 01/28/18 15:36 Source: patient, RN notes reviewed Mode of arrival: ambulatory Limitations: no limitations - History of Present Illness Initial comments: 72-year-old female presents to the emergency department with a chief complaint of left finger infection. She states that her fingernails and skin were splitting due to dryness. She states that she has infection under the index finger on the left side as well as one over the pinky finger. She states she is getting some purulent material out of the pinky. She states is been no drainage from the index finger. She denies any fever chills. She states that they do throb. She states that the redness has not extended past the tip of the finger. She was concerned due to the redness and drainage so she thought that she should be seen. Patient denies any recent fever, chills, shortness of breath, chest pain, back pain, abdominal pain, nausea vomiting, numbness or tingling, dysuria or hematuria, constipation or diarrhea, headaches or visual changes, or any other current symptoms. - Related Data Home Medications Medication Instructions Recorded Confirmed Folic Acid-Vit B Complex-Vit C 1 cap PO DAILY 06/06/16 09/20/17 [Nephrocaps] Citalopram Hydrobromide [CeleXA] 20 mg PO DAILY 08/05/16 09/20/17 Meclizine [Antivert] 25 mg PO BID PRN 04/21/17 09/20/17 Aspirin 325 mg PO DAILY 07/21/17 09/20/17 Previous Rx's Medication Instructions Recorded Clopidogrel [Plavix] 75 mg PO DAILY #30 tab 11/22/16 Ondansetron Odt [Zofran ODT] 4 mg PO Q8HR PRN #10 tab 06/24/17 Calcium Acetate [PhosLo] 1,334 mg PO AC-TID cap 07/18/17 Cholecalciferol [Vitamin D3] 1,000 unit PO DAILY tab 07/18/17 Cyanocobalamin [Vitamin B-12] 1,000 mcg PO DAILY tab 07/18/17 Ferrous Sulfate [Iron (65 MG 325 mg PO BID-W/MEALS tab 07/18/17 Elemental)] Atorvastatin [Lipitor] 40 mg PO DAILY tab 08/01/17 Bisacodyl [Dulcolax] 10 mg RECTAL DAILY PRN suppositor 08/01/17 Darbepoetin Luis Manuel [Aranesp] 40 mcg SQ Q7D syr 08/01/17 HYDROcodone/APAP 5-325MG [[place] 2 each PO Q4HR PRN tab 08/01/17 5-325] INSULIN LISPRO (humaLOG) [humaLOG] 0 unit SQ ACHS vial 08/01/17 Insulin Glargine [Lantus] 25 unit SQ Q24H vial 08/01/17 Metoprolol Tartrate [Lopressor] 25 mg PO BID tab 08/01/17 Pantoprazole [Protonix] 40 mg PO AC-BRKFST tab 08/01/17 Sennosides-Docusate Sodium 2 each PO HS tab 08/01/17 [Senokot-S] Cephalexin [Keflex] 500 mg PO Q6HR #40 cap 01/28/18 Sulfamethox-Tmp 800-160Mg [Bactrim 2 each PO Q12HR #56 tab 01/28/18 DS 800-160 mg] Allergies Allergy/AdvReac Type Severity Reaction Status Date / Time glyburide [From Diabeta] Allergy Rash/Hives Verified 01/28/18 15:16 Review of Systems ROS Statement: Those systems with pertinent positive or pertinent negative responses have been documented in the HPI. ROS Other: All systems not noted in ROS Statement are negative. Past Medical History Past Medical History: Coronary Artery Disease (CAD), Chest Pain / Angina, Diabetes Mellitus, Dialysis, Hyperlipidemia, Hypertension, Myocardial Infarction (MS), Renal Disease Additional Past Medical History / Comment(s): End-stage renal disease with hemodialysis 3 times a week usually has on , sat.-left arm AV fistula , Non-STEMI 03/14/16, peripheral neuropathy bilateral feet cataracts bilaterally , frequent UTI'S, stress incontinence. Last Myocardial Infarction Date:: 07/15/2017 History of Any Multi-Drug Resistant Organisms: None Reported Past Surgical History: Appendectomy, Cholecystectomy, Heart Catheterization, Heart Catheterization With Stent, Tonsillectomy Additional Past Surgical History / Comment(s): 03/15/16 PTCA with stent to mid LAD,06-07-16 HEART CATH STENT TO PROX RCA. Restented mid LAD 11/20/16 A/V fistula with revision L upper arm, history of Lasix eye surgery and cataract removal. Past Anesthesia/Blood Transfusion Reactions: No Reported Reaction Date of Last Stent Placement:: 11/21/2016 Past Psychological History: Depression Smoking Status: Former smoker - Past Family History Father Family Medical History: Diabetes Mellitus Additional Family Medical History / Comment(s): Father of diabetic complications in his 40's Mother Family Medical History: Cancer, Myocardial Infarction (MS) Additional Family Medical History / Comment(s): Cancer unknown type. Mother of a MS in her early 50's Brother(s) Family Medical History: Cancer Additional Family Medical History / Comment(s): Her brother from lung cancer and cirrhosis of the liver. General Exam - General Exam Comments Initial Comments: General: The patient is awake and alert, in no distress, and does not appear acutely ill. Neck: The neck is supple, there is no tenderness. Cardiovascular: There is a regular rate and rhythm. No murmur, rub or gallop is appreciated. Respiratory: Lungs are clear to auscultation, respirations are non-labored, breath sounds are equal. No wheezes, stridor, rales, or rhonchi. Musculoskeletal: Sensation intact with 2+ pulses throughout the left upper x- ray. Full range of motion of left wrist and left hand. Peeling noted to all fingertips. She does have healing wound to the index finger. Some erythema noted to the pinky finger. To the PIP joints. There is a sore with some purulent discharge at the nail of the left pinky. Neurological: CN II-XII intact, There are no obvious motor or sensory deficits. Coordination appears grossly intact. Speech is normal. Skin: Skin is warm and dry and no rashes or lesions are noted. Psychiatric: Normal mood and affect. Limitations: no limitations Course Vital Signs 01/28/18 01/28/18 15:10 15:39 Temperature 98.5 F Pulse Rate 60 65 Respiratory 16 18 Rate Blood Pressure 207/82 204/82 O2 Sat by Pulse 100 98 Oximetry - Reevaluation(s) Reevaluation #1: 01/28/18 15:54 Patient is found to be hypertensive. She states she has been taking her medication. She states that she is followed up with her doctor for this. She does not want treatment for hypertension she is just here for hand. Medical Decision Making - Medical Decision Making 72-year-old female presents with what appears to be a paronychia. At this time we did get quite a bit of drainage from the area. At this time we did discuss we will start her on antibiotics. We did discuss follow-up with her doctor we discussed return parameters and continued care at home. Patient stated that she understood and she is agreement this plan. All questions have been answered. She will be discharged. Disposition Clinical Impression: Paronychia of left index finger, Paronychia of left little finger, Hypertension Disposition: HOME SELF-CARE Condition: Stable Instructions: Paronychia (ED) Additional Instructions: Please use medication as discussed. Please follow up with family doctor if symptoms have not improved over the next two days. Please return to the emergency room if your symptoms increase or worsen or for any other concerns. Prescriptions: Cephalexin [Keflex] 500 mg PO Q6HR #40 cap Sulfamethox-Tmp 800-160Mg [Bactrim DS 800-160 mg] 2 each PO Q12HR #56 tab Referrals: Jasbir Malone DO [Primary Care Provider] - 1-2 days Time of Disposition: 15:55
== END 2018-01-28 16:04 | disposition home or self-care (01) ==
LOC: EC 15:07
DX: L03.012 Cellulitis of left finger (principal); F32.9 Major depressive disorder, single episode, unspecified; I25.2 Old myocardial infarction; Z87.891 Personal history of nicotine dependence; Z79.899 Other long term (current) drug therapy; Z79.82 Long term (current) use of aspirin; Z88.8 Allergy status to other drugs, medicaments and biological substances
CPT/HCPCS: 99283

== ENCOUNTER 2018-02-15 06:44 | Inpatient (IN) | payer MEDICARE, OTHER ==
[2018-02-15 07:29] LABS: Basophils % (A) 0 %; Eosinophils # (A) 0.4 k/uL (0-0.7); Eosinophils % (A) 5 %; HCT 25.2 % (34.0-46.0); HGB 8.3 gm/dL (11.4-16.0); Lymphocytes # (A) 1.4 k/uL (1.0-4.8); Lymphocytes % (A) 17 %; MCH 30.5 pg (25.0-35.0); MCV 92.4 fL (80.0-100.0); Mean Platelet Volume 7.5; Monocytes # (A) 0.4 k/uL (0-1.0); Monocytes % (A) 5 %; Neutrophils # (A) 5.7 k/uL (1.3-7.7); Neutrophils % (A) 70 %; Platelet Count 219 k/uL (150-450); RBC 2.72 m/uL (3.80-5.40); RDW 14.6 % (11.5-15.5); WBC 8.1 k/uL (3.8-10.6)
[2018-02-15] MEDS ORDERED: SODIUM CHLORIDE 0.9% 1,000 ML IV STA (07:39)
[2018-02-15] MEDS ORDERED: SODIUM CHLORIDE 0.9% 500 ML IV STA (07:39)
[2018-02-15 07:40] LABS: INR 1.1 (<1.2); Partial Thromboplastin Time 37.5 sec (22.0-30.0); Prothrombin Time 10.9 sec (9.0-12.0)
--- NOTE | 2018-02-15 07:47 | XR ---
EXAMINATION TYPE: XR chest 2V DATE OF EXAM: 02/15/2018 COMPARISON: Chest x-ray August 01, 2017 and August 21, 2017 HISTORY: Syncope and weakness. TECHNIQUE: Frontal and lateral views of the chest are obtained. FINDINGS: Post CABG changes with mediastinal clips and sternal wires is redemonstrated. There is per sistent cardiomegaly. There is persistent small right pleural effusion. Left lung remains clear. The osseous structures are intact. IMPRESSION: Cardiomegaly with small right pleural effusion redemonstrated. No new suspicious focal i nfiltrate
[2018-02-15 07:54] LABS: Calcium 8.5 mg/dL (8.4-10.2); Magnesium 3.3 mg/dL (1.6-2.3); Total Bilirubin 0.2 mg/dL (0.2-1.3); Total Protein 5.6 g/dL (6.3-8.2)
--- NOTE | 2018-02-15 08:18 | CT ---
EXAMINATION TYPE: CT brain wo con DATE OF EXAM: 02/15/2018 COMPARISON: 06/25/2010 HISTORY: 72-year-old female with syncope and dizziness TECHNIQUE: Examination was done in axial plane without intravenous contrast. Coronal and sagittal r econstructions performed. CT DLP: 1054.2 mGycm Automated exposure control for dose reduction was used. FINDINGS: There is no evidence of acute intracranial hemorrhage, acute ischemic changes, mass, mass-effect, or extra-axial fluid collection. There is no effacement of cerebral sulci or basal subarachnoid cister ns. There is no hydrocephalus. There is no midline shift. Lemus-white matter distinction is preserv ed. Mild patchy white matter hypodensities suggest changes of chronic small vessel ischemic disease. Ther e is mild generalized supratentorial volume loss. Previously described possible small lacunar infarct right basal ganglia is not as well-seen on the current exam. Paranasal sinuses appear well-pneumatized. Mastoid air cells clear. Orbits and globes are intact. IMPRESSION: No acute intracranial abnormality seen. Similar mild atrophy and mild changes of chronic small vessel ischemic disease.
[2018-02-15 08:23] LABS: Creatine Kinase MB 5.4 ng/mL (0.0-2.4); Troponin I 0.044 ng/mL (0.000-0.034)
--- NOTE | 2018-02-15 08:55 | ED ---
Dizziness HPI - General Chief Complaint: Syncope Stated Complaint: dizziness Time Seen by Provider: 02/15/18 07:08 Source: patient, EMS Mode of arrival: EMS Limitations: no limitations - History of Present Illness Initial Comments: 72 years old female history of renal failure on dialysis she was supposed to get the dialysis on Monday she was very dizzy she was not able to ambulate very weak and she missed her dialysis she stated she is afraid she is going to fall she has a history of coronary artery disease status post CABG diabetes hypertension and renal failure. Headaches no chest pain she has a shortness of breath no pleuritic chest pain no abdominal pain no frequency urgency dysuria no symptoms of TIA or CVA, she said she believes she passed out for short time - Related Data Home Medications Medication Instructions Recorded Confirmed Folic Acid-Vit B Complex-Vit C 1 cap PO DAILY 06/06/16 02/15/18 [Nephrocaps] Meclizine [Antivert] 25 mg PO BID 04/21/17 02/15/18 Aspirin EC [Ecotrin Low Dose] 81 mg PO DAILY 02/15/18 02/15/18 Atorvastatin [Lipitor] 80 mg PO HS 02/15/18 02/15/18 Calcium Acetate [PhosLo] 1,334 mg PO AC-BID 02/15/18 02/15/18 Calcium Carb-Mag Carb-Folic 1 tab PO BID 02/15/18 02/15/18 [Magnebind 400 Rx] Citalopram Hydrobromide [CeleXA] 20 mg PO DAILY 02/15/18 02/15/18 Folic Acid 0.8 mg PO TID 02/15/18 02/15/18 Furosemide [Lasix] 40 mg PO BID 02/15/18 02/15/18 Insulin Aspart [NovoLOG See Protocol SQ AC-TID 02/15/18 02/15/18 (formulary)] Insulin Glargine [Lantus] 30 unit SQ Q24H 02/15/18 02/15/18 Lisinopril [Zestril] 20 mg PO HS 02/15/18 02/15/18 Metoprolol Tartrate [Lopressor] 25 mg PO DAILY 02/15/18 02/15/18 Nitroglycerin Sl Tabs [Nitrostat] 0.4 mg SUBLINGUAL Q5M PRN 02/15/18 02/15/18 amLODIPine [Norvasc] 10 mg PO DAILY 02/15/18 02/15/18 Previous Rx's Medication Instructions Recorded Clopidogrel [Plavix] 75 mg PO DAILY #30 tab 11/22/16 Cholecalciferol [Vitamin D3] 1,000 unit PO DAILY tab 07/18/17 Cyanocobalamin [Vitamin B-12] 1,000 mcg PO DAILY tab 07/18/17 Ferrous Sulfate [Iron (65 MG 325 mg PO BID-W/MEALS tab 07/18/17 Elemental)] Allergies Allergy/AdvReac Type Severity Reaction Status Date / Time glyburide [From Diabeta] Allergy Rash/Hives Verified 02/15/18 07:43 Review of Systems ROS Statement: Those systems with pertinent positive or pertinent negative responses have been documented in the HPI. ROS Other: All systems not noted in ROS Statement are negative. Past Medical History Past Medical History: Coronary Artery Disease (CAD), Chest Pain / Angina, Diabetes Mellitus, Dialysis, Hyperlipidemia, Hypertension, Myocardial Infarction (NC), Renal Disease Additional Past Medical History / Comment(s): End-stage renal disease with hemodialysis 3 times a week usually has on . , sat.-left arm AV fistula , Non-STEMI 03/14/16, peripheral neuropathy bilateral feet cataracts bilaterally , frequent UTI'S, stress incontinence. Last Myocardial Infarction Date:: 07/15/2017 History of Any Multi-Drug Resistant Organisms: None Reported Past Surgical History: Appendectomy, Cholecystectomy, Heart Catheterization, Heart Catheterization With Stent, Tonsillectomy Additional Past Surgical History / Comment(s): 03/15/16 PTCA with stent to mid LAD,06-07-16 HEART CATH STENT TO PROX RCA. Restented mid LAD 11/20/16 A/V fistula with revision L upper arm, history of Lasix eye surgery and cataract removal. Past Anesthesia/Blood Transfusion Reactions: No Reported Reaction Date of Last Stent Placement:: 11/21/2016 Past Psychological History: No Psychological Hx Reported, Depression Smoking Status: Former smoker - Past Family History Father Family Medical History: Diabetes Mellitus Additional Family Medical History / Comment(s): Father of diabetic complications in his 40's Mother Family Medical History: Cancer, Myocardial Infarction (NC) Additional Family Medical History / Comment(s): Cancer unknown type. Mother of a NC in her early 50's Brother(s) Family Medical History: Cancer Additional Family Medical History / Comment(s): Her brother from lung cancer and cirrhosis of the liver. General Exam - General Exam Comments Initial Comments: General: The patient is awake and GCS is 15 but she looks pale and tired and sleepy Skin: Skin is warm and dry and no rashes or lesions are noted. Eye: Pupils are equal, round and reactive to light, extra-ocular movements are intact; there is normal conjunctiva bilaterally. Ears, nose, mouth and throat: There are moist mucous membranes and no oral lesions. Neck: The neck is supple, there is no tenderness or JVD. Cardiovascular: There is a regular rate and rhythm. No murmur, rub or gallop is appreciated. Noticed significant bradycardia Respiratory: To auscultation bilateral, crackles at the bases Gastrointestinal: Soft, non-distended, non-tender abdomen without masses or organomegaly noted. There is no rebound or guarding present. Bowel sounds are unremarkable. Back: There is no tenderness to palpation in the midline. There is no obvious deformity. Musculoskeletal: Normal ROM, no tenderness, There is no pedal edema. There is no calf tenderness or swelling. No cords were appreciated. Neurological: CN II-XII intact, Cranial nerves III through XII are intact. There are no obvious motor or sensory deficits. Coordination appears grossly intact. Speech is normal. Psychiatric: Cooperative, appropriate mood & affect, normal judgment. Limitations: no limitations Course Vital Signs 02/15/18 02/15/18 02/15/18 06:48 06:55 08:18 Temperature Pulse Rate 53 L 49 L 51 L Respiratory 18 18 Rate Blood Pressure 137/63 145/56 O2 Sat by Pulse 100 100 Oximetry 02/15/18 08:31 Temperature 96.8 F L Pulse Rate Respiratory Rate Blood Pressure O2 Sat by Pulse Oximetry On reassessment was noticed at term CBC is unremarkable hemoglobin is 8.3 INR is normal BUN is 87 creatinine is 8.33 troponin is 0.04 Chest x-ray showed cardiomegaly head CT is normal considering her symptomatic bradycardia or get him put her in the hospital though troponin elevation could simply be because of her renal failure or high corrected them that we need to see if she is a candidate for any pacemaker we will leave that to cardiology will consult nephrology patient stated she sees Dr. Brooks will get her board and she also missed her dialysis yesterday or day before yesterday she will definitely need to EKG Findings - EKG Comments: EKG Findings:: EKG is a sinus bradycardia heart rate is 49 MI interval is 184 QRS duration is 98 QT/QTc is 554/500 review of this EKG does not reveal any ST elevation noticed some flattening of the T-wave in lead 1 and lead 2 and lead 3 and V4 V5 and V6 Medical Decision Making - Lab Data Result diagrams: 02/15/18 06:55 02/15/18 06:55 Lab Results 02/15/18 02/15/18 02/15/18 Range/Units 06:55 06:55 06:55 WBC 8.1 (3.8-10.6) k/uL RBC 2.72 L (3.80-5.40) m/uL Hgb 8.3 L (11.4-16.0) gm/dL Hct 25.2 L (34.0-46.0) % MCV 92.4 (80.0-100.0) fL MCH 30.5 (25.0-35.0) pg MCHC 33.0 (31.0-37.0) g/dL RDW 14.6 (11.5-15.5) % Plt Count 219 (150-450) k/uL Neutrophils % 70 % Lymphocytes % 17 % Monocytes % 5 % Eosinophils % 5 % Basophils % 0 % Neutrophils # 5.7 (1.3-7.7) k/uL Lymphocytes # 1.4 (1.0-4.8) k/uL Monocytes # 0.4 (0-1.0) k/uL Eosinophils # 0.4 (0-0.7) k/uL Basophils # 0.0 (0-0.2) k/uL PT (9.0-12.0) sec INR (<1.2) APTT (22.0-30.0) sec Sodium 138 (137-145) mmol/L Potassium 5.0 (3.5-5.1) mmol/L Chloride 97 L (98-107) mmol/L Carbon Dioxide 19 L (22-30) mmol/L Anion Gap 22 mmol/L BUN 87 H* (7-17) mg/dL Creatinine 8.33 H* (0.52-1.04) mg/dL Est GFR (CKD-EPI)AfAm 5 (>60 ml/min/1.73 sqM) Est GFR (CKD-EPI)NonAf 4 (>60 ml/min/1.73 sqM) Glucose 170 H (74-99) mg/dL Calcium 8.5 (8.4-10.2) mg/dL Magnesium 3.3 H (1.6-2.3) mg/dL Total Bilirubin 0.2 (0.2-1.3) mg/dL AST 46 H (14-36) U/L ALT 68 H (9-52) U/L Alkaline Phosphatase 109 (38-126) U/L Total Creatine Kinase 175 H (30-135) U/L CK-MB (CK-2) 5.4 H* (0.0-2.4) ng/mL CK-MB (CK-2) Rel Index 3.1 Troponin I 0.044 H* (0.000-0.034) ng/mL Total Protein 5.6 L (6.3-8.2) g/dL Albumin 3.0 L (3.5-5.0) g/dL 02/15/18 Range/Units 06:55 WBC (3.8-10.6) k/uL RBC (3.80-5.40) m/uL Hgb (11.4-16.0) gm/dL Hct (34.0-46.0) % MCV (80.0-100.0) fL MCH (25.0-35.0) pg MCHC (31.0-37.0) g/dL RDW (11.5-15.5) % Plt Count (150-450) k/uL Neutrophils % % Lymphocytes % % Monocytes % % Eosinophils % % Basophils % % Neutrophils # (1.3-7.7) k/uL Lymphocytes # (1.0-4.8) k/uL Monocytes # (0-1.0) k/uL Eosinophils # (0-0.7) k/uL Basophils # (0-0.2) k/uL PT 10.9 (9.0-12.0) sec INR 1.1 (<1.2) APTT 37.5 H (22.0-30.0) sec Sodium (137-145) mmol/L Potassium (3.5-5.1) mmol/L Chloride (98-107) mmol/L Carbon Dioxide (22-30) mmol/L Anion Gap mmol/L BUN (7-17) mg/dL Creatinine (0.52-1.04) mg/dL Est GFR (CKD-EPI)AfAm (>60 ml/min/1.73 sqM) Est GFR (CKD-EPI)NonAf (>60 ml/min/1.73 sqM) Glucose (74-99) mg/dL Calcium (8.4-10.2) mg/dL Magnesium (1.6-2.3) mg/dL Total Bilirubin (0.2-1.3) mg/dL AST (14-36) U/L ALT (9-52) U/L Alkaline Phosphatase (38-126) U/L Total Creatine Kinase (30-135) U/L CK-MB (CK-2) (0.0-2.4) ng/mL CK-MB (CK-2) Rel Index Troponin I (0.000-0.034) ng/mL Total Protein (6.3-8.2) g/dL Albumin (3.5-5.0) g/dL Disposition Clinical Impression: Renal failure, Bradycardia, Elevated troponin Disposition: ADMITTED IP TO THIS HOSP Condition: Good Referrals: Jasbir Malone DO [Primary Care Provider] - 1-2 days
[2018-02-15] MEDS ORDERED: ONDANSETRON 4 MG/2 ML VIAL IVP PRN (09:07)
[2018-02-15] MEDS ORDERED: NALOXONE 0.4 MG/ML 1 ML VIAL IV PRN (09:07)
[2018-02-15] MEDS ORDERED: ACETAMINOPHEN TAB 325 MG TAB PO PRN (09:07)
[2018-02-15] MEDS ORDERED: NITROGLYCERIN SL TABS 0.4 MG TAB SUBLINGUAL PRN (09:12)
[2018-02-15 09:24] LABS: Appearance,Urine Cloudy (Clear); Bilirubin,Urine Negative (Negative); Blood,Urine Small (Negative); Color,Urine Yellow; Glucose,Urine (UA) 2+ (Negative); Ketones,Urine Negative (Negative); Leukocyte Esterase,Urine Negative (Negative); Mucus,Urine Rare /hpf; Nitrite,Urine Negative (Negative); Protein,Urine 3+ (Negative); Specific Gravity,Urine 1.016 (1.001-1.035); Squamous Epithelial Cell,Urine <1 /hpf (0-4)
[2018-02-15] MEDS ORDERED: DARBEPOETIN ALFA 40 MCG/0.4 ML SYRINGE SQ SCH (12:00)
--- NOTE | 2018-02-15 12:51 | CONS ---
CONSULTATION CHIEF COMPLAINT: Dizziness. Margarita is a 72-year-old lady with history of coronary artery disease, status post CABG, chronic renal failure on dialysis, hypertension, dyslipidemia, and prior episodes of dizziness, was at dialysis today, became very dizzy, due to which she was sent to the emergency room where she is admitted. Her EKG shows sinus bradycardia. She has mild troponin elevation related to her renal failure. At the time of my evaluation, she appears comfortable at rest and is free of symptoms. Her blood pressure is normal. Heart rate is in the 50s. I do not believe the bradycardia is causing the dizziness and she is certainly not hypotensive to explain her symptomatology. PAST MEDICAL HISTORY: Significant for end-stage renal disease on hemodialysis, coronary artery disease, status post CABG, hypertension, dyslipidemia. CURRENT MEDICATIONS: Include Norvasc 10 daily, sublingual nitroglycerin, Lopressor 25 mg daily, Antivert 25 b.i.d., lisinopril 20 daily, insulin, Lasix, Plavix, Celexa, PhosLo, Lipitor and aspirin. Allergic to GLYBURIDE. FAMILY HISTORY: Negative for premature coronary artery disease. SOCIAL HISTORY: Negative for smoking, EtOH abuse or drug abuse. REVIEW OF SYSTEMS: HEENT: Significant for dizziness. CARDIAC: As described above. RESPIRATORY: Negative. GI: Negative. GENITOURINARY: Significant for renal failure. PSYCHOSOCIAL: Negative. ENDOCRINE: Negative. DERM: Negative. CONSTITUTIONAL: Negative. ONCOLOGICAL: Negative. Rest of the system review is not relevant. PHYSICAL EXAM: Patient is comfortable at rest. Vital signs are stable. There is no jugular venous distention. Carotid upstroke is normal. There is no bruit. Chest exam reveals good air entry bilaterally. Heart exam reveals first and second heart sounds. No gallop. Has a systolic murmur at the apex. Abdomen is soft. Exam of extremities did not reveal any edema. Peripheral pulses are felt. LABS: Show that the hemoglobin is 8.3, BUN is 87, creatinine is 8.3. Troponin is 0.04. EKG shows sinus bradycardia. ASSESSMENT: 1. Dizziness. 2. End-stage renal disease on hemodialysis. 3. Elevated troponin secondary to renal failure. 4. Coronary artery disease, status post coronary artery bypass grafting. 5. Anemia. 6. Chronic renal failure. PLAN: I am going to stop the metoprolol, continue rest of her medications. Whenever the dizziness improves, she can be discharged home and dialysis continued. RAHATL / IJN: [id number] /
--- NOTE | 2018-02-15 12:57 | P.NPCON ---
History of Present Illness - Reason for Consult end stage renal disease - History of Present Illness Reason for consultation: End-stage renal disease History of present illness: Patient is a 72-year-old female seen in renal consultation for end-stage renal disease. She is on hemodialysis on a Monday schedule via left upper extremity AV graft. Patient missed her dialysis on Monday as she felt quite dizzy. Patient did go to hemodialysis this morning which she was noted to be bradycardic and subsequently sent to the hospital. Her heart rate was noted to be 49 which presented to the ER. Her blood pressures have been in the systolic 140s to 150s. She was maintained on Lopressor as an outpatient which is currently held. She is feeling better now. Her dizziness is improved. Denies fever or chills. No vomiting or diarrhea. Denies chest pain. Denies palpitations. Oral intake is good. Currently resting in bed. No active complaints at this time. Vital signs are stable. General: The patient appeared well nourished and normally developed. HEENT: Head exam is unremarkable. Neck is without jugular venous distension. LUNGS: Lungs are clear to auscultation and percussion. Breath sounds decreased. HEART: Rate and Rhythm are regular. First and second heart sounds normal. No murmurs, rubs or gallops. ABDOMEN: Abdominal exam reveals normal bowel sounds. Non-tender and non- distended. No evidence of peritonitis. EXTREMITITES: No clubbing, cyanosis, or edema. Past Medical History Past Medical History: Coronary Artery Disease (CAD), Chest Pain / Angina, Diabetes Mellitus, Dialysis, Hyperlipidemia, Hypertension, Myocardial Infarction (AK), Renal Disease Additional Past Medical History / Comment(s): End-stage renal disease with hemodialysis 3 times a week usually has on , mon.-left arm AV fistula , Non-STEMI 03/14/16, peripheral neuropathy bilateral feet cataracts bilaterally , frequent UTI'S, stress incontinence. Last Myocardial Infarction Date:: 07/15/2017 History of Any Multi-Drug Resistant Organisms: None Reported Past Surgical History: Appendectomy, Cholecystectomy, Heart Catheterization, Heart Catheterization With Stent, Tonsillectomy Additional Past Surgical History / Comment(s): 03/15/16 PTCA with stent to mid LAD,06-07-16 HEART CATH STENT TO PROX RCA. Restented mid LAD 11/20/16 A/V fistula with revision L upper arm, history of Lasix eye surgery and cataract removal. Past Anesthesia/Blood Transfusion Reactions: No Reported Reaction Date of Last Stent Placement:: 11/21/2016 Past Psychological History: No Psychological Hx Reported, Depression Smoking Status: Former smoker - Past Family History Father Family Medical History: Diabetes Mellitus Additional Family Medical History / Comment(s): Father of diabetic complications in his 40's Mother Family Medical History: Cancer, Myocardial Infarction (AK) Additional Family Medical History / Comment(s): Cancer unknown type. Mother of a AK in her early 50's Brother(s) Family Medical History: Cancer Additional Family Medical History / Comment(s): Her brother from lung cancer and cirrhosis of the liver. Medications and Allergies Home Medications Medication Instructions Recorded Confirmed Type Folic Acid-Vit B Complex-Vit C 1 cap PO DAILY 06/06/16 02/15/18 History [Nephrocaps] Clopidogrel [Plavix] 75 mg PO DAILY #30 tab 11/22/16 02/15/18 Rx Meclizine [Antivert] 25 mg PO BID 04/21/17 02/15/18 History Cholecalciferol [Vitamin D3] 1,000 unit PO DAILY tab 07/18/17 02/15/18 Rx Cyanocobalamin [Vitamin B-12] 1,000 mcg PO DAILY tab 07/18/17 02/15/18 Rx Ferrous Sulfate [Iron (65 MG 325 mg PO BID-W/MEALS tab 07/18/17 02/15/18 Rx Elemental)] Aspirin EC [Ecotrin Low Dose] 81 mg PO DAILY 02/15/18 02/15/18 History Atorvastatin [Lipitor] 80 mg PO HS 02/15/18 02/15/18 History Calcium Acetate [PhosLo] 1,334 mg PO AC-BID 02/15/18 02/15/18 History Calcium Carb-Mag Carb-Folic 1 tab PO BID 02/15/18 02/15/18 History [Magnebind 400 Rx] Citalopram Hydrobromide [CeleXA] 20 mg PO DAILY 02/15/18 02/15/18 History Folic Acid 0.8 mg PO TID 02/15/18 02/15/18 History Furosemide [Lasix] 40 mg PO BID 02/15/18 02/15/18 History Insulin Aspart [NovoLOG See Protocol SQ AC-TID 02/15/18 02/15/18 History (formulary)] Insulin Glargine [Lantus] 30 unit SQ Q24H 02/15/18 02/15/18 History Lisinopril [Zestril] 20 mg PO HS 02/15/18 02/15/18 History Metoprolol Tartrate [Lopressor] 25 mg PO DAILY 02/15/18 02/15/18 History Nitroglycerin Sl Tabs [Nitrostat] 0.4 mg SUBLINGUAL Q5M PRN 02/15/18 02/15/18 History amLODIPine [Norvasc] 10 mg PO DAILY 02/15/18 02/15/18 History Allergies Allergy/AdvReac Type Severity Reaction Status Date / Time glyburide [From Diabeta] Allergy Rash/Hives Verified 02/15/18 07:43 Physical Exam Vitals: Vital Signs Temp Pulse Resp BP Pulse Ox 02/15/18 12:33 56 L 19 142/65 100 02/15/18 10:27 49 L 17 157/71 99 02/15/18 08:31 96.8 F L 02/15/18 08:18 51 L 18 145/56 100 02/15/18 06:55 49 L 02/15/18 06:48 53 L 18 137/63 100 Intake and Output 02/14/18 02/15/18 02/15/18 22:59 06:59 14:59 Other: Weight 83.007 kg Results - Lab Results Most recent lab results Calcium 8.5 mg/dL (8.4-10.2) 02/15/18 06:55 Magnesium 3.3 mg/dL (1.6-2.3) H 02/15/18 06:55 02/15/18 06:55 02/15/18 06:55 Assessment and Plan Plan: Assessment: #1. End-stage renal disease maintained on hemodialysis on a Monday schedule. #2. Bradycardia. Possibly related to beta tone use. Recent heart rate 56. #3. Anemia of chronic kidney disease. Rule out iron deficiency. #4. Chronic kidney disease mineral bone disease maintained on PhosLo. #5. Insulin-dependent diabetes mellitus. #6. History of coronary artery disease status post CABG in July 2017. #7. Hypertension with chronic kidney disease. Controlled. Plan: Hemodialysis today with goal 3 L ultrafiltration. Check phosphorus level. Check iron studies. Start Aranesp. Cardiology evaluation pending. Thank you for the consultation. I will continue to follow the patient with you during her hospital stay.
[2018-02-15 13:30] VITALS: RESP 18
[2018-02-15 15:20] VITALS: BMI 33.5
[2018-02-15 16:19] LABS: Iron Saturation 34.35 (12.00-45.00)
[2018-02-15 16:53] LABS: Glucose,Whole Blood 144 mg/dL (75-99)
[2018-02-15] MEDS: INSULIN DETEMIR 100 UNIT/ML 10 ML VIAL SQ SCH (17:35)
[2018-02-15] MEDS: FERROUS SULFATE 325 MG TAB PO SCH (17:37)
[2018-02-15] MEDS: FOLIC ACID 1 MG TAB PO SCH ×2 (17:37→21:05)
[2018-02-15] MEDS: CALCIUM ACETATE 667 MG CAP PO SCH (17:37)
--- NOTE | 2018-02-15 20:39 | HP ---
HISTORY AND PHYSICAL CHIEF COMPLAINTS: Tiredness, weakness and bradycardia. HISTORY OF PRESENT ILLNESS: This 72-year-old woman with a past medical history of recent CAD, CABG, history of renal failure, diabetes mellitus, type 2, history of hypertension, hyperlipidemia, history of myocardial infarction, history of CAD and stent, being followed by Dr. Malone in the outpatient setting, apparently was getting dialysis today. The patient felt weak and tired and the patient was noted to have sinus bradycardia. Patient was taken to [facility] and was admitted for further evaluation and treatment. There is no history of any fever, rigor or chills. No history of chest pain. No history of palpitations. No history of headache, loss of consciousness, seizures. PAST MEDICAL HISTORY: 1. CAD, CABG. 2. History of renal failure. 3. History of chest pain. 4. Diabetes mellitus, type 2. 5. Hypertension. 6. Hyperlipidemia. 7. History of myocardial infarction. HOME MEDICATIONS: 1. Norvasc 10 mg p.o. daily. 2. Nitrostat 0.4 sublingually p.r.n. 3. Lopressor 25 mg p.o. daily. 4. Antivert 25 mg b.i.d. 5. Zestril 20 mg at bedtime. 6. Lantus 30 units subcutaneously daily. 7. NovoLog scale. 8. Lasix 40 mg p.o. b.i.d. 9. Nephrocaps 1 p.o. daily. 10.Folic acid 0.8 t.i.d. 11.Iron 65 325 mg p.o. b.i.d. 12.Vitamin B12 1000 mg p.o. daily. 13.Plavix 75 mg p.o. daily. 14.Celexa 20 mg p.o. daily. 15.Vitamin D3 1000 daily. 16.MagneBind 400 mg p.o. b.i.d. 17.PhosLo 1334 before meals b.i.d. 18.Lipitor 80 mg at bedtime. 19.Ecotrin 81 mg p.o. daily. ALLERGIES: GLYBURIDE. FAMILY HISTORY: History of diabetes mellitus in the family. SOCIAL HISTORY: Previous history of smoking. No history of alcohol intake. REVIEW OF SYSTEMS: ENT: No diminished hearing. No diminished vision. CARDIOVASCULAR SYSTEM: As mentioned earlier. RESPIRATORY SYSTEM: As mentioned earlier. GI: No nausea, vomiting. : No dysuria or retention. NERVOUS SYSTEM: No numbness, weakness. ALLERGY/IMMUNOLOGY: No asthma, hayfever. MUSCULOSKELETAL: As mentioned earlier. HEMATOLOGY/ONCOLOGY: No history of anemia. ENDOCRINE: History of diabetes mellitus. No hypothyroidism. CONSTITUTIONAL: As mentioned earlier. DERMATOLOGY: Negative. RHEUMATOLOGY: Negative. PSYCHIATRY: As mentioned earlier. PHYSICAL EXAMINATION: Patient alert and oriented x3. Pulse 55, blood pressure 120/59, respiration 18, temperature 97.4, pulse ox 98% on 2 L. HEENT: Conjunctivae normal. Oral mucosa moist. NECK: No jugular venous distention. No carotid bruit. No lymph node enlargement. CARDIOVASCULAR SYSTEM: S1, S2 muffled. RESPIRATORY SYSTEM: Breath sounds diminished at the bases. A few scattered rhonchi. No crackles. ABDOMEN: Soft, nontender. No mass palpable. LEGS: Left leg edema present. NERVOUS SYSTEM: Higher functions as mentioned earlier. Moves all 4 limbs. No focal motor or sensory deficit. LYMPHATICS: No lymph node palpable in neck, axillae or groin. SKIN: No ulcer, rash, bleeding. LABS: Labs at this time show WBC 8.1, hemoglobin 8.3, creatinine 8.33. Troponin 0.034. ASSESSMENT: 1. Bradycardia, symptomatic. 2. Troponin 0.044, indeterminate. 3. Chronic renal failure, stage V, on hemodialysis. 4. Increased AST ALT. 5. Anemia of chronic disease. 6. History of coronary artery disease, coronary artery bypass grafting, stent. 7. Diabetes mellitus, type 2. 8. Hyperlipidemia. 9. Hypertension. 10.History of myocardial infarction. 11.History of depression. 12.Remote history of nicotine dependence. RECOMMENDATIONS AND DISCUSSION: In this 72-year-old woman who presented with multiple complex medical issues, we will monitor the patient closely, continue the current medications. Continue with symptomatic treatment. Otherwise, avoid beta blockers. Continue the rest of the medications. Symptomatic treatment. Repeat labs. I would also recommend a TSH. Otherwise, we will closely follow with Cardiology and Nephrology. Guarded prognosis because of multiple complex medical issues. Further recommendations to follow. MMODL / IJN: [id number] /
[2018-02-15 20:53] LABS: Glucose,Whole Blood 219 mg/dL (75-99)
[2018-02-15] MEDS ORDERED: ATORVASTATIN 80 MG TAB PO SCH (21:00)
[2018-02-15] MEDS ORDERED: LISINOPRIL 20 MG TAB PO SCH (21:00)
[2018-02-15] MEDS: MECLIZINE 25 MG TAB PO SCH (21:05)
[2018-02-15] MEDS: CALCIUM CARB-MAG CARB-FOLIC 1 EACH TAB PO SCH (21:05)
[2018-02-15] MEDS: INSULIN ASPART 100 UNIT/ML 1 ML 10 ML VIAL SQ SCH (21:05)
[2018-02-15] MEDS: FUROSEMIDE 40 MG TAB PO SCH (21:05)
[2018-02-15 22:24] LABS: T4, Free (Free Thyroxine) 1.02 ng/dL (0.78-2.19)
[2018-02-16 04:31] LABS: Hemoglobin A1C 8.7 % (4.0-6.0)
[2018-02-16 05:50] LABS: Glucose,Whole Blood 208 mg/dL (75-99)
[2018-02-16 06:46] LABS: Basophils % (A) 0 %; Eosinophils # (A) 0.4 k/uL (0-0.7); Eosinophils % (A) 7 %; HCT 24.3 % (34.0-46.0); HGB 8.1 gm/dL (11.4-16.0); Lymphocytes # (A) 1.1 k/uL (1.0-4.8); Lymphocytes % (A) 20 %; MCH 31.2 pg (25.0-35.0); MCHC 33.2 g/dL (31.0-37.0); MCV 93.8 fL (80.0-100.0); Mean Platelet Volume 7.4; Monocytes # (A) 0.3 k/uL (0-1.0); Monocytes % (A) 6 %; Neutrophils # (A) 3.5 k/uL (1.3-7.7); Neutrophils % (A) 64 %; Platelet Count 194 k/uL (150-450); RDW 14.9 % (11.5-15.5); WBC 5.6 k/uL (3.8-10.6)
[2018-02-16] MEDS: CALCIUM ACETATE 667 MG CAP PO SCH (06:54)
[2018-02-16] MEDS: FERROUS SULFATE 325 MG TAB PO SCH (06:54)
[2018-02-16] MEDS: INSULIN ASPART 100 UNIT/ML 1 ML 10 ML VIAL SQ SCH ×2 (06:54→11:42)
[2018-02-16 06:56] LABS: Calcium 8.4 mg/dL (8.4-10.2); Phosphorus 5.3 mg/dL (2.5-4.5); Potassium 4.5 mmol/L (3.5-5.1)
--- NOTE | 2018-02-16 08:29 | P.PN ---
Subjective Patient is seen in follow-up for end-stage renal disease. She is maintained on hemodialysis on a Monday schedule via left upper extremity AV graft. She underwent hemodialysis yesterday without any problems. Patient presented with dizziness and she was noted to be in sinus bradycardia. Metoprolol has been discontinued. Overall she feels better today. Dizziness is improved. Denies chest pain or shortness of breath. Vital signs are stable. General: The patient appeared well nourished and normally developed. HEENT: Head exam is unremarkable. Neck is without jugular venous distension. LUNGS: Lungs are clear to auscultation and percussion. Breath sounds decreased. HEART: Rate and Rhythm are regular. First and second heart sounds normal. No murmurs, rubs or gallops. ABDOMEN: Abdominal exam reveals normal bowel sounds. Non-tender and non- distended. No evidence of peritonitis. EXTREMITITES: No clubbing, cyanosis, or edema. Objective - Vital Signs Vital signs: Vital Signs Temp 97.6 F 02/16/18 04:00 Pulse 63 02/16/18 04:00 Resp 18 02/16/18 04:00 BP 114/50 02/16/18 04:00 Pulse Ox 92 L 02/16/18 04:00 Intake & Output 02/15/18 02/16/18 02/16/18 18:59 06:59 18:59 Intake Total 250 20 360 Balance 250 20 360 Weight 83 kg 80.9 kg Intake: Intake, IV Titration 20 Amount Sodium Chloride 0.9% 1, 20 000 ml @ 100 mls/hr IV . Q10H STA Rx#:[id number] Oral 250 360 - Labs CBC & Chem 7: 02/16/18 05:52 02/16/18 05:52 Labs: Abnormal Lab Results - Last 24 Hours (Table) 02/15/18 02/15/18 02/15/18 Range/Units 06:55 06:55 08:39 RBC (3.80-5.40) m/uL Hgb (11.4-16.0) gm/dL Hct (34.0-46.0) % BUN (7-17) mg/dL Creatinine (0.52-1.04) mg/dL Glucose (74-99) mg/dL POC Glucose (mg/dL) (75-99) mg/dL Hemoglobin A1c 8.7 H (4.0-6.0) % Phosphorus (2.5-4.5) mg/dL Ferritin (10.0-291.0) ng/mL Troponin I (0.000-0.034) ng/mL TSH 5.940 H (0.465-4.680) mIU/L Urine Appearance Cloudy H (Clear) Urine Protein 3+ H (Negative) Urine Glucose (UA) 2+ H (Negative) Urine Blood Small H (Negative) Urine Mucus Rare H (None) /hpf 02/15/18 02/15/18 02/15/18 Range/Units 11:56 11:56 16:38 RBC (3.80-5.40) m/uL Hgb (11.4-16.0) gm/dL Hct (34.0-46.0) % BUN (7-17) mg/dL Creatinine (0.52-1.04) mg/dL Glucose (74-99) mg/dL POC Glucose (mg/dL) 144 H (75-99) mg/dL Hemoglobin A1c (4.0-6.0) % Phosphorus (2.5-4.5) mg/dL Ferritin 1132.6 H (10.0-291.0) ng/mL Troponin I 0.035 H* (0.000-0.034) ng/mL TSH (0.465-4.680) mIU/L Urine Appearance (Clear) Urine Protein (Negative) Urine Glucose (UA) (Negative) Urine Blood (Negative) Urine Mucus (None) /hpf 02/15/18 02/16/18 02/16/18 Range/Units 20:52 05:49 05:52 RBC (3.80-5.40) m/uL Hgb (11.4-16.0) gm/dL Hct (34.0-46.0) % BUN 40 H (7-17) mg/dL Creatinine 4.85 H (0.52-1.04) mg/dL Glucose 199 H (74-99) mg/dL POC Glucose (mg/dL) 219 H 208 H (75-99) mg/dL Hemoglobin A1c (4.0-6.0) % Phosphorus 5.3 H (2.5-4.5) mg/dL Ferritin (10.0-291.0) ng/mL Troponin I (0.000-0.034) ng/mL TSH (0.465-4.680) mIU/L Urine Appearance (Clear) Urine Protein (Negative) Urine Glucose (UA) (Negative) Urine Blood (Negative) Urine Mucus (None) /hpf 02/16/18 Range/Units 05:52 RBC 2.60 L (3.80-5.40) m/uL Hgb 8.1 L (11.4-16.0) gm/dL Hct 24.3 L (34.0-46.0) % BUN (7-17) mg/dL Creatinine (0.52-1.04) mg/dL Glucose (74-99) mg/dL POC Glucose (mg/dL) (75-99) mg/dL Hemoglobin A1c (4.0-6.0) % Phosphorus (2.5-4.5) mg/dL Ferritin (10.0-291.0) ng/mL Troponin I (0.000-0.034) ng/mL TSH (0.465-4.680) mIU/L Urine Appearance (Clear) Urine Protein (Negative) Urine Glucose (UA) (Negative) Urine Blood (Negative) Urine Mucus (None) /hpf Assessment and Plan Plan: Assessment: #1. End-stage renal disease maintained on hemodialysis on a Monday schedule. #2. Bradycardia. Possibly related to beta tone use. Improved. #3. Anemia of chronic kidney disease. Iron replete. Maintained on Aranesp. #4. Chronic kidney disease mineral bone disease maintained on PhosLo. #5. Insulin-dependent diabetes mellitus. #6. History of coronary artery disease status post CABG in July 2017. #7. Hypertension with chronic kidney disease. Controlled. Plan: Hemodialysis tomorrow with goal 2 L ultrafiltration. Stable to be discharged home from nephrology standpoint.
[2018-02-16] MEDS: INSULIN DETEMIR 100 UNIT/ML 10 ML VIAL SQ SCH (08:36)
[2018-02-16] MEDS: MECLIZINE 25 MG TAB PO SCH (08:36)
[2018-02-16] MEDS: FUROSEMIDE 40 MG TAB PO SCH (08:36)
[2018-02-16] MEDS: FOLIC ACID 1 MG TAB PO SCH (08:36)
[2018-02-16] MEDS: CALCIUM CARB-MAG CARB-FOLIC 1 EACH TAB PO SCH (08:36)
[2018-02-16] MEDS ORDERED: ASPIRIN 81 MG PO SCH (09:00)
[2018-02-16] MEDS ORDERED: amLODIPine 10 MG TAB PO SCH (09:00)
[2018-02-16] MEDS ORDERED: FOLIC ACID-VIT B COMPLEX-VIT C 1 CAP PO SCH (09:00)
[2018-02-16] MEDS ORDERED: CLOPIDOGREL 75 MG TAB PO SCH (09:00)
[2018-02-16] MEDS ORDERED: METOPROLOL TARTRATE 25 MG TAB PO SCH (09:00)
[2018-02-16] MEDS ORDERED: CHOLECALCIFEROL 1,000 UNIT TAB PO SCH (09:00)
[2018-02-16] MEDS ORDERED: CITALOPRAM HYDROBROMIDE 20 MG TAB PO SCH (09:00)
[2018-02-16] MEDS ORDERED: CYANOCOBALAMIN 500 MCG TAB PO SCH (09:00)
[2018-02-16 11:27] LABS: Glucose,Whole Blood 130 mg/dL (75-99)
[2018-02-16 11:28] VITALS: BP 128/56; PULSE 68; TEMP 97.5
--- NOTE | 2018-02-16 12:30 | P.PN ---
Subjective Progress Note Date: 02/16/18 Principal diagnosis: Dizziness This is a 72-year-old female with known history of coronary artery disease and prior bypass surgery, chronic renal failure on dialysis, hypertension, hyperlipidemia, prior episodes of came to the hospital because of symptoms of dizziness. Her initial EKG showed sinus bradycardia. Patient was also noted to have mild abnormality in her troponin likely secondary to abnormal renal function. Her beta tone was discontinued yesterday, heart rate today in the 70s. She was seen and examined, denied any dizziness, no difficulty in breathing. Blood pressure this morning 128/60 with a heart rate of 70. White blood cell count 5.6, hemoglobin 8.1, platelet count 154. Sodium 140, potassium 4.5, BUN 40, creatinine 4.8. Objective - Vital Signs Vital signs: Vital Signs Temp 97.5 F L 02/16/18 11:25 Pulse 68 02/16/18 11:25 Resp 18 02/16/18 11:25 BP 128/56 02/16/18 11:25 Pulse Ox 95 02/16/18 11:25 Intake & Output 02/15/18 02/16/18 02/16/18 18:59 06:59 18:59 Intake Total 250 20 360 Balance 250 20 360 Weight 83 kg 80.9 kg Intake: Intake, IV Titration 20 Amount Sodium Chloride 0.9% 1, 20 000 ml @ 100 mls/hr IV . Q10H STA Rx#:[id number] Oral 250 360 - Exam PHYSICAL EXAMINATION: HEENT: Head is atraumatic, normocephalic. Pupils equal, round. Neck is supple. There is no elevated jugular venous pressure. HEART EXAMINATION: Heart S1 and S2 systolic murmur is heard. CHEST EXAMINATION: Lungs are clear to auscultation and precussion. No chest wall tenderness is noted on palpation or with deep breathing. ABDOMEN: Soft, nontender. Bowel sounds are heard. No organomegaly noted. EXTREMITIES: 2+ peripheral pulses with no evidence of peripheral edema and no calf tenderness noted. NEUROLOGIC patient is awake, alert and oriented -3. . - Labs CBC & Chem 7: 02/16/18 05:52 02/16/18 05:52 Labs: Abnormal Lab Results - Last 24 Hours (Table) 02/15/18 02/15/18 02/15/18 Range/Units 06:55 06:55 11:56 RBC (3.80-5.40) m/uL Hgb (11.4-16.0) gm/dL Hct (34.0-46.0) % BUN (7-17) mg/dL Creatinine (0.52-1.04) mg/dL Glucose (74-99) mg/dL POC Glucose (mg/dL) (75-99) mg/dL Hemoglobin A1c 8.7 H (4.0-6.0) % Phosphorus (2.5-4.5) mg/dL Ferritin (10.0-291.0) ng/mL Troponin I 0.035 H* (0.000-0.034) ng/mL TSH 5.940 H (0.465-4.680) mIU/L 02/15/18 02/15/18 02/15/18 Range/Units 11:56 16:38 20:52 RBC (3.80-5.40) m/uL Hgb (11.4-16.0) gm/dL Hct (34.0-46.0) % BUN (7-17) mg/dL Creatinine (0.52-1.04) mg/dL Glucose (74-99) mg/dL POC Glucose (mg/dL) 144 H 219 H (75-99) mg/dL Hemoglobin A1c (4.0-6.0) % Phosphorus (2.5-4.5) mg/dL Ferritin 1132.6 H (10.0-291.0) ng/mL Troponin I (0.000-0.034) ng/mL TSH (0.465-4.680) mIU/L 02/16/18 02/16/18 02/16/18 Range/Units 05:49 05:52 05:52 RBC 2.60 L (3.80-5.40) m/uL Hgb 8.1 L (11.4-16.0) gm/dL Hct 24.3 L (34.0-46.0) % BUN 40 H (7-17) mg/dL Creatinine 4.85 H (0.52-1.04) mg/dL Glucose 199 H (74-99) mg/dL POC Glucose (mg/dL) 208 H (75-99) mg/dL Hemoglobin A1c (4.0-6.0) % Phosphorus 5.3 H (2.5-4.5) mg/dL Ferritin (10.0-291.0) ng/mL Troponin I (0.000-0.034) ng/mL TSH (0.465-4.680) mIU/L 02/16/18 Range/Units 11:21 RBC (3.80-5.40) m/uL Hgb (11.4-16.0) gm/dL Hct (34.0-46.0) % BUN (7-17) mg/dL Creatinine (0.52-1.04) mg/dL Glucose (74-99) mg/dL POC Glucose (mg/dL) 130 H (75-99) mg/dL Hemoglobin A1c (4.0-6.0) % Phosphorus (2.5-4.5) mg/dL Ferritin (10.0-291.0) ng/mL Troponin I (0.000-0.034) ng/mL TSH (0.465-4.680) mIU/L Assessment and Plan Plan: Assessment and plan #1 dizziness #2 end-stage renal disease on hemodialysis #3 abnormal troponin, likely secondary to renal failure #4 known history of coronary artery disease with prior bypass surgery #5 anemia #6 bradycardia, beta tone discontinued. Plan From cardiology's perspective, patient should be able to be discharged home today. She already has a follow-up appointment in the office which she has been advised to keep. DNP note has been reviewed, I agree with a documented findings and plan of care. Patient was seen and examined.
--- NOTE | 2018-02-17 02:58 | DS ---
DISCHARGE SUMMARY FINAL DIAGNOSIS: 1. Symptomatic bradycardia. 2. Troponin 0.042, indeterminate. 3. Chronic renal failure stage 5 on hemodialysis. 4. Increased AST/ALT. 5. Anemia of chronic disease. 6. History of coronary artery disease, coronary artery bypass grafting/stent. 7. Diabetes type 2. 8. Hypertension. 9. Hyperlipidemia. 10.History of myocardial infarction. 11.History of depression. 12.Remote history of nicotine dependence. DISCHARGE DISPOSITION: The patient is being discharged in stable condition with guarded prognosis. HISTORY OF PRESENT ILLNESS: This 72-year-old woman with a past medical history of multiple medical problems was admitted with symptomatic bradycardia, treated symptomatically and observed. Cardiology saw the patient. Patient improved significantly. Beta blockers were held. On exam, vital signs are stable. Cardiovascular: S1, S2. Abdomen soft. Nervous system: No focal deficits. The patient is being discharged in stable condition with guarded prognosis. DISCHARGE DISPOSITION: 1. Diet is cardiac diet. 2. Activity limited until followup. 3. Follow up with Dr. Jasbir Malone in 2-3 days. 4. Follow up with Nephrology and Cardiology as recommended. MEDICATIONS ARE: 1. Norvasc 10 mg p.o. daily. 2. Ecotrin 81 mg daily. 3. Lipitor 80 mg q.h.s. 4. PhosLo 1334 a.c. t.i.d. 5. Calcium with vitamin D 1 p.o. b.i.d. 6. Vitamin D3 1000 daily. 7. Celexa 20 mg p.o. daily. 8. Plavix 75 mg p.o. daily. 9. Vitamin B12 1000 mcg p.o. daily. 10.Iron sulfate 320 mg p.o. b.i.d. 11.Folic acid 0.8, p.o. t.i.d. 12.Lasix 40 mg p.o. b.i.d. 13.NovoLog scale. 14.Lantus 30 units subcu q24 hours. 15.Zestril 20 mg q.h.s. 16.Antivert 25 mg p.o. b.i.d. 17.Nitrostat 0.4 mg p.r.n. MMODL / IJN: [id number] /
== END 2018-02-16 13:45 | disposition home or self-care (01) | DRG 309 ==
LOC: EC 06:44 → 6SEL 09:07
PROVIDERS: ADMIT Family Medicine; ATTEND Family Medicine
PROC: 5A1D70Z Performance of Urinary Filtration, Intermittent, Less than 6 Hours Per Day (ICD-10-PCS; principal; 2018-02-15)
DX: R00.1 Bradycardia, unspecified (principal); I12.0 Hypertensive chronic kidney disease with stage 5 chronic kidney disease or end stage renal disease; E11.22 Type 2 diabetes mellitus with diabetic chronic kidney disease; E11.42 Type 2 diabetes mellitus with diabetic polyneuropathy; N18.5 Chronic kidney disease, stage 5; Z95.1 Presence of aortocoronary bypass graft; D63.1 Anemia in chronic kidney disease; Z99.2 Dependence on renal dialysis; F32.9 Major depressive disorder, single episode, unspecified; I25.10 Atherosclerotic heart disease of native coronary artery without angina pectoris; E78.5 Hyperlipidemia, unspecified; R77.9 Abnormality of plasma protein, unspecified; E83.89 Other disorders of mineral metabolism; N39.3 Stress incontinence (female) (male); I25.2 Old myocardial infarction; Z79.02 Long term (current) use of antithrombotics/antiplatelets; Z79.82 Long term (current) use of aspirin; Z79.4 Long term (current) use of insulin; Z79.899 Other long term (current) drug therapy; Z90.49 Acquired absence of other specified parts of digestive tract; Z95.5 Presence of coronary angioplasty implant and graft; Z87.891 Personal history of nicotine dependence; Z87.440 Personal history of urinary (tract) infections; Z98.42 Cataract extraction status, left eye; Z98.41 Cataract extraction status, right eye; Z88.8 Allergy status to other drugs, medicaments and biological substances; Z83.3 Family history of diabetes mellitus; Z82.49 Family history of ischemic heart disease and other diseases of the circulatory system; Z80.1 Family history of malignant neoplasm of trachea, bronchus and lung
CPT/HCPCS: 36415; 51701; 70450; 71046; 80048; 80053; 81001; 82550; 82553; 82728; 83036; 83540; 83550; 83735; 84100; 84439; 84443; 84484; 85025; 85610; 85730; 90935; 93005; 96360; 99285

== ENCOUNTER 2018-02-17 09:18 | Emergency (ER) | payer MEDICARE, OTHER ==
[2018-02-17 09:29] VITALS: PULSE 64
[2018-02-17] MEDS ORDERED: SODIUM CHLORIDE 0.9% 500 ML IV STA (10:09)
--- NOTE | 2018-02-17 10:20 | ED ---
Nausea/Vomiting/Diarrhea HPI - General Chief complaint: Nausea/Vomiting/Diarrhea Stated complaint: POSS C-DIFF Time Seen by Provider: 02/17/18 10:01 Source: patient Mode of arrival: wheelchair Limitations: no limitations - History of Present Illness Initial comments: This is a 72-year-old female to history of CAD, end-stage renal disease who presents emergency department for diarrhea. The patient states that it started 4 days ago. She's been having episodes of diarrhea about once per hour. She describes them as watery and nonbloody. She has no associated abdominal pain however states that she has some anal pain from all the diarrhea she's been having. No fevers or chills. No nausea or vomiting. She was recently treated on a course of antibiotics for 2 finger infections. She states that she took a total of 56 pills of Bactrim and also a week's worth of Keflex. The patient is concerned for C. diff. Does not have a history of this. Otherwise states that she feels well. She does admit to decreased urination over the last couple of days however is on dialysis. - Related Data Home Medications Medication Instructions Recorded Confirmed Folic Acid-Vit B Complex-Vit C 1 cap PO DAILY 06/06/02/15/18 [Nephrocaps] Meclizine [Antivert] 25 mg PO BID 04/21/17 02/15/18 Aspirin EC [Ecotrin Low Dose] 81 mg PO DAILY 02/15/18 02/15/18 Atorvastatin [Lipitor] 80 mg PO HS 02/15/18 02/15/18 Calcium Acetate [PhosLo] 1,334 mg PO AC-BID 02/15/18 02/15/18 Calcium Carb-Mag Carb-Folic 1 tab PO BID 02/15/18 02/15/18 [Magnebind 400] Citalopram Hydrobromide [CeleXA] 20 mg PO DAILY 02/15/18 02/15/18 Folic Acid 0.8 mg PO TID 02/15/18 02/15/18 Furosemide [Lasix] 40 mg PO BID 02/15/18 02/15/18 Insulin Aspart [NovoLOG See Protocol SQ AC-TID 02/15/18 02/15/18 (formulary)] Insulin Glargine [Lantus] 30 unit SQ Q24H 02/15/18 02/15/18 Lisinopril [Zestril] 20 mg PO HS 02/15/18 02/15/18 Nitroglycerin Sl Tabs [Nitrostat] 0.4 mg SUBLINGUAL Q5M PRN 02/15/18 02/15/18 amLODIPine [Norvasc] 10 mg PO DAILY 02/15/18 02/15/18 Previous Rx's Medication Instructions Recorded Clopidogrel [Plavix] 75 mg PO DAILY #30 tab 11/22/16 Cholecalciferol [Vitamin D3] 1,000 unit PO DAILY tab 07/18/17 Cyanocobalamin [Vitamin B-12] 1,000 mcg PO DAILY tab 07/18/17 Ferrous Sulfate [Iron (65 MG 325 mg PO BID-W/MEALS tab 07/18/17 Elemental)] Allergies Allergy/AdvReac Type Severity Reaction Status Date / Time glyburide [From Diabeta] Allergy Rash/Hives Verified 02/15/18 07:43 Review of Systems ROS Statement: Those systems with pertinent positive or pertinent negative responses have been documented in the HPI. ROS Other: All systems not noted in ROS Statement are negative. Past Medical History Past Medical History: Coronary Artery Disease (CAD), Chest Pain / Angina, Diabetes Mellitus, Dialysis, Hyperlipidemia, Hypertension, Myocardial Infarction ([place]), Renal Disease Additional Past Medical History / Comment(s): End-stage renal disease with hemodialysis 3 times a week usually has on . , sat.-left arm AV fistula , Non-STEMI 03/14/16, peripheral neuropathy bilateral feet cataracts bilaterally , frequent UTI'S, stress incontinence. Last Myocardial Infarction Date:: 07/15/2017 History of Any Multi-Drug Resistant Organisms: None Reported Past Surgical History: Appendectomy, Cholecystectomy, Heart Catheterization, Heart Catheterization With Stent, Tonsillectomy Additional Past Surgical History / Comment(s): 03/15/16 PTCA with stent to mid LAD,06-07-16 HEART CATH STENT TO PROX RCA. Restented mid LAD 11/20/16 A/V fistula with revision L upper arm, history of Lasix eye surgery and cataract removal. Past Anesthesia/Blood Transfusion Reactions: No Reported Reaction Date of Last Stent Placement:: 11/21/2016 Past Psychological History: No Psychological Hx Reported, Depression Smoking Status: Former smoker Past Alcohol Use History: None Reported Past Drug Use History: None Reported - Past Family History Father Family Medical History: Diabetes Mellitus Additional Family Medical History / Comment(s): Father of diabetic complications in his 40's Mother Family Medical History: Cancer, Myocardial Infarction ([place]) Additional Family Medical History / Comment(s): Cancer unknown type. Mother of a [place] in her early 50's Brother(s) Family Medical History: Cancer Additional Family Medical History / Comment(s): Her brother from lung cancer and cirrhosis of the liver. General Exam - General Exam Comments Initial Comments: Constitutional: Awake alert Appears comfortable Head: Normocephalic atraumatic Eyes: no conjunctival injection No scleral icterus EOMI Neck: No JVD Supple Heart: Regular rate rhythm normal S1-S2 no murmurs Lungs: Clear to auscultation bilaterally No wheezing No rales Abdomen: Soft nondistended nontender Extremities: Non edematous DP pulses intact Radial pulses intact Neuro: A&Ox3 No focal neurologic deficits Psych: Appropriate mood and affect Limitations: no limitations Course Vital Signs 02/17/18 09:26 Temperature 97.0 F L Pulse Rate 64 Respiratory 17 Rate Blood Pressure 158/68 O2 Sat by Pulse 100 Oximetry Medical Decision Making - Medical Decision Making This is a 9-year-old female came in for diarrhea. She was concerned for C. diff. Patient's blood work was reviewed and unremarkable. No significant leukocytosis. The patient did not appear severely dehydrated based on blood work. She was given some fluids in the emergency. We waited a couple of hours and she was unable to produce a stool sample. I gave her prescription to have this done and she can bring it in for testing for C. diff. The results will be directed to Dr. Malone. If the patient has any worsening of her symptoms I instructed her to return to the emergency Department. All questions were answered. - Lab Data Result diagrams: 02/17/18 10:35 02/17/18 10:35 Lab Results 02/17/18 02/17/18 Range/Units 10:35 10:35 WBC 6.4 (3.8-10.6) k/uL RBC 3.09 L (3.80-5.40) m/uL Hgb 9.2 L (11.4-16.0) gm/dL Hct 28.6 L (34.0-46.0) % MCV 92.6 (80.0-100.0) fL MCH 29.9 (25.0-35.0) pg MCHC 32.3 (31.0-37.0) g/dL RDW 14.7 (11.5-15.5) % Plt Count 225 (150-450) k/uL Neutrophils % 56 % Lymphocytes % 22 % Monocytes % 8 % Eosinophils % 9 % Basophils % 1 % Neutrophils # 3.6 (1.3-7.7) k/uL Lymphocytes # 1.4 (1.0-4.8) k/uL Monocytes # 0.5 (0-1.0) k/uL Eosinophils # 0.6 (0-0.7) k/uL Basophils # 0.0 (0-0.2) k/uL Sodium 139 (137-145) mmol/L Potassium 3.5 (3.5-5.1) mmol/L Chloride 94 L (98-107) mmol/L Carbon Dioxide 33 H (22-30) mmol/L Anion Gap 12 mmol/L BUN 16 (7-17) mg/dL Creatinine 2.75 H (0.52-1.04) mg/dL Est GFR (CKD-EPI)AfAm 19 (>60 ml/min/1.73 sqM) Est GFR (CKD-EPI)NonAf 17 (>60 ml/min/1.73 sqM) Glucose 219 H (74-99) mg/dL Calcium 8.4 (8.4-10.2) mg/dL Magnesium 2.2 (1.6-2.3) mg/dL Total Bilirubin 0.3 (0.2-1.3) mg/dL AST 50 H (14-36) U/L ALT 68 H (9-52) U/L Alkaline Phosphatase 127 H (38-126) U/L Total Protein 6.0 L (6.3-8.2) g/dL Albumin 3.2 L (3.5-5.0) g/dL Disposition Clinical Impression: Diarrhea Disposition: HOME SELF-CARE Condition: Stable Instructions: Acute Diarrhea (ED) Additional Instructions: Please collect stool sample and bring to lab. Send results to Dr. Malone. Return if diarrhea worsens or you develop new symptoms. Referrals: Jasbir Malone DO [Primary Care Provider] - 1-2 days
[2018-02-17 10:57] LABS: Basophils % (A) 1 %; Eosinophils # (A) 0.6 k/uL (0-0.7); Eosinophils % (A) 9 %; HCT 28.6 % (34.0-46.0); HGB 9.2 gm/dL (11.4-16.0); Lymphocytes # (A) 1.4 k/uL (1.0-4.8); Lymphocytes % (A) 22 %; MCH 29.9 pg (25.0-35.0); MCHC 32.3 g/dL (31.0-37.0); MCV 92.6 fL (80.0-100.0); Mean Platelet Volume 7.4; Monocytes # (A) 0.5 k/uL (0-1.0); Monocytes % (A) 8 %; Neutrophils # (A) 3.6 k/uL (1.3-7.7); Neutrophils % (A) 56 %; Platelet Count 225 k/uL (150-450); RBC 3.09 m/uL (3.80-5.40); RDW 14.7 % (11.5-15.5); WBC 6.4 k/uL (3.8-10.6)
[2018-02-17 11:06] LABS: Albumin 3.2 g/dL (3.5-5.0); Calcium 8.4 mg/dL (8.4-10.2); Magnesium 2.2 mg/dL (1.6-2.3); Potassium 3.5 mmol/L (3.5-5.1); Total Bilirubin 0.3 mg/dL (0.2-1.3)
[2018-02-17 12:18] VITALS: BP 149/66; RESP 18; TEMP 97.1
== END 2018-02-17 12:18 | disposition home or self-care (01) ==
LOC: EC 09:18
DX: R19.7 Diarrhea, unspecified (principal); I25.119 Atherosclerotic heart disease of native coronary artery with unspecified angina pectoris; E78.5 Hyperlipidemia, unspecified; E11.22 Type 2 diabetes mellitus with diabetic chronic kidney disease; I12.0 Hypertensive chronic kidney disease with stage 5 chronic kidney disease or end stage renal disease; N18.6 End stage renal disease; Z99.2 Dependence on renal dialysis; E11.42 Type 2 diabetes mellitus with diabetic polyneuropathy; I25.2 Old myocardial infarction; F32.9 Major depressive disorder, single episode, unspecified; Z87.891 Personal history of nicotine dependence; Z79.82 Long term (current) use of aspirin; Z79.4 Long term (current) use of insulin; Z79.899 Other long term (current) drug therapy; Z88.8 Allergy status to other drugs, medicaments and biological substances; Z90.49 Acquired absence of other specified parts of digestive tract
CPT/HCPCS: 36415; 80053; 83735; 85025; 99284

== ENCOUNTER → 2018-06-20 | Outpatient (CLI) | payer MEDICARE, OTHER ==
[2018-06-20 11:53] LABS: ALT 22 U/L (9-52); AST 18 U/L (14-36); Cholesterol 120 mg/dL (<200); HDL Cholesterol 44 mg/dL (40-60); LDL Cholesterol,Calculated 54 mg/dL (0-99); Triglycerides 108 mg/dL (<150)
== END | disposition home or self-care (01) ==
LOC: LABWHC1 10:47
PROVIDERS: ATTEND Internal Medicine Cardiovascular Disease
DX: E78.2 Mixed hyperlipidemia (principal)
CPT/HCPCS: 36415; 80061; 84450; 84460

== ENCOUNTER → 2019-02-04 | Outpatient (CLI) | payer MEDICARE, OTHER ==
[2019-02-04 16:03] LABS: Albumin 3.9 g/dL (3.80-4.90); Albumin/Globulin Ratio 1.77 (1.60-3.17); Anion Gap 13.2 mmol/L (4.00-12.00); Carbon Dioxide 28.8 mmol/L (21.6-31.8); Globulin 2.2 g/dL (1.6-3.3); LDL Cholesterol,Calculated 60.2 mg/dL (0.0-131.0); Potassium 5.3 mmol/L (3.5-5.5); Total Bilirubin 0.3 mg/dL (0.2-1.2); Total Protein 6.1 g/dL (6.2-8.2); VLDL Calculation 28.8 mg/dL (5.00-40.00)
== END ==
LOC: LABWHC1 10:39
PROVIDERS: ATTEND Family Medicine
DX: E11.9 Type 2 diabetes mellitus without complications (principal); I99.9 Unspecified disorder of circulatory system
CPT/HCPCS: 36415; 80053; 80061; 83036

== ENCOUNTER 2019-04-18 18:21 | Observation (INO) | payer MEDICARE, OTHER ==
--- NOTE | 2019-04-18 18:56 | ED ---
General Adult HPI - General Chief complaint: Recheck/Abnormal Lab/Rx Stated complaint: Diabetic Time Seen by Provider: 04/18/19 18:26 Source: patient Mode of arrival: ambulatory Limitations: no limitations - History of Present Illness Initial comments: Dictation was produced using [employer] dictation software. please excuse any grammatical, word or spelling errors. Chief Complaint: 73-year-old female brought in by EMS for hypoglycemia and altered mental status. History of Present Illness: Patient is 73-year-old female she has past medical history of end-stage renal disease she has dialysis Monday. Patient states she takes 40 units of Levemir every morning and 8 units of NovoLog throughout the day. Her last insulin dose was at 11 AM today. Patient states last she remembers was eating lunch. She then went up to around to rest. She remembers she is in ambulance and was told that she was brought to the emergency department for hypoglycemia. Patient has any hypoglycemic episode recently. Patient otherwise feels well. No cough, sore throat. No pain complaints. No abdominal pain nausea vomiting or diarrhea. Denies any constitutional symptoms according to EMS upon initial evaluation patient had a blood glucose of 47. She was given 1 amp of dextrose. She improved after the administration of dextrose. The ROS documented in this emergency department record has been reviewed and confirmed by me. Those systems with pertinent positive or negative responses have been documented in the HPI. All other systems are other negative and/or noncontributory. PHYSICAL EXAM: General Impression: Alert and oriented x3, not in acute distress HEENT: Normocephalic atraumatic, extra-ocular movements intact, pupils equal and reactive to light bilaterally, mucous membranes moist. Cardiovascular: Heart regular rate and rhythm, S1&S2 audible, no murmurs, rubs or gallops Chest: Lungs clear to auscultation bilaterally, no rhonchi, no wheeze, no rales Abdomen: Bowel sounds present, abdomen soft, non-tender, non-distended, no organomegaly Musculoskeletal: Pulses present and equal in all extremities, no peripheral edema Motor: no focal deficits noted Neurological: CN II-XII grossly intact, no focal motor or sensory deficits noted Skin: Intact with no visualized rashes, left upper extremity AV fistula. Psych: Normal affect and mood ED course: 73-year-old female who is insulin-dependent with history of end-stage renal disease presents after hypoglycemic episode. Vital signs upon arrival are within acceptable limits. Physical examination is benign. Patient is well- appearing. Laboratory evaluation obtained. Patient has mild leukocytosis of 11.2 likely secondary to stress. Metabolic panel shows elevated creatinine and BUN. Patient is end-stage renal disease patient. No hyperkalemia. Glucose 93. Electrolytes are within acceptable limits. Computed tomography scan of the bra in and C-spine is unremarkable. Chest x-ray is unremarkable. Patient has prolonged QT. Medications reviewed at this point there is no clear source of patient's prolonged QT. Patient be admitted with cardiology consultation. Discussed patient case with Dr. Jasbir Malone who is willing to accept admission. EKG interpretation: Ventricular rate 58, sinus bradycardia,. Interval 194, QS 108, QTC 422. No ND prolongation, EKG suggestive of prolonged QT. - Related Data Home Medications Medication Instructions Recorded Confirmed Folic Acid-Vit B Complex-Vit C 1 cap PO DAILY 06/06/16 04/18/19 [Nephrocaps] Aspirin EC [Ecotrin Low Dose] 81 mg PO DAILY 02/15/18 04/18/19 Atorvastatin [Lipitor] 80 mg PO HS 02/15/18 04/18/19 Calcium Acetate [PhosLo] 1,334 mg PO AC-BID 02/15/18 04/18/19 Calcium Carb-Mag Carb-Folic 1 tab PO AC-TID 02/15/18 04/18/19 [Magnebind 400] Citalopram Hydrobromide [CeleXA] 20 mg PO DAILY 02/15/18 04/18/19 Furosemide [Lasix] 40 mg PO DAILY 02/15/18 04/18/19 INSULIN ASPART (NovoLOG) [NovoLOG See Protocol SQ AC-TID 02/15/18 04/18/19 (formulary)] Lisinopril [Zestril] 10 mg PO HS 02/15/18 04/18/19 Insulin Detemir [Levemir Flextouch] 30 units SQ DAILY 04/18/19 04/18/19 Previous Rx's Medication Instructions Recorded Clopidogrel [Plavix] 75 mg PO DAILY #30 tab 11/22/16 Cholecalciferol [Vitamin D3 (25 1,000 unit PO DAILY tab 07/18/17 Mcg = 1000 Iu)] Cyanocobalamin [Vitamin B-12] 1,000 mcg PO DAILY tab 07/18/17 Allergies Allergy/AdvReac Type Severity Reaction Status Date / Time glyburide [From Diabeta] Allergy Rash/Hives Verified 04/18/19 18:45 Review of Systems ROS Statement: Those systems with pertinent positive or pertinent negative responses have been documented in the HPI. ROS Other: All systems not noted in ROS Statement are negative. Past Medical History Past Medical History: Coronary Artery Disease (CAD), Chest Pain / Angina, Diabetes Mellitus, Dialysis, Hyperlipidemia, Hypertension, Myocardial Infarction ([place]), Renal Disease Additional Past Medical History / Comment(s): End-stage renal disease with hemodialysis 3 times a week usually has on . thur, sat.-left arm AV fistula, Non-STEMI 03/14/16, peripheral neuropathy bilateral feet cataracts bilaterally, frequent UTI'S, stress incontinence.lt. finger wound Last Myocardial Infarction Date:: 07/15/2017 History of Any Multi-Drug Resistant Organisms: None Reported Past Surgical History: Appendectomy, Cholecystectomy, Heart Catheterization, Heart Catheterization With Stent, Tonsillectomy Additional Past Surgical History / Comment(s): 03/15/16 PTCA with stent to mid LAD,06-07-16 HEART CATH STENT TO PROX RCA. Restented mid LAD 11/20/16 A/V fistula with revision L upper arm, history of Lasix eye surgery and cataract removal. Past Anesthesia/Blood Transfusion Reactions: No Reported Reaction Date of Last Stent Placement:: 11/21/2016 Past Psychological History: Depression Smoking Status: Former smoker Past Alcohol Use History: None Reported Past Drug Use History: None Reported - Past Family History Father Family Medical History: Diabetes Mellitus Additional Family Medical History / Comment(s): Father of diabetic complications in his 40's Mother Family Medical History: Cancer, Myocardial Infarction ([place]) Additional Family Medical History / Comment(s): Cancer unknown type. Mother of a [place] in her early 50's Brother(s) Family Medical History: Cancer Additional Family Medical History / Comment(s): Her brother from lung cancer and cirrhosis of the liver. General Exam Limitations: no limitations Course Vital Signs 04/18/19 04/18/19 04/18/19 18:33 19:00 19:10 Pulse Rate 59 L Respiratory 16 Rate Blood Pressure 138/54 146/59 O2 Sat by Pulse 100 99 98 Oximetry 04/18/19 04/18/19 04/18/19 19:20 19:30 20:00 Pulse Rate 57 L Respiratory 12 Rate Blood Pressure 152/62 152/62 176/74 O2 Sat by Pulse 100 Oximetry 04/18/19 04/18/19 04/18/19 20:10 20:20 20:30 Pulse Rate 56 L 57 L Respiratory 16 14 Rate Blood Pressure 178/72 178/72 178/72 O2 Sat by Pulse Oximetry 04/18/19 04/18/19 04/18/19 20:40 20:50 21:00 Pulse Rate 56 L 54 L 55 L Respiratory 14 11 L 14 Rate Blood Pressure 187/72 187/72 O2 Sat by Pulse Oximetry 04/18/19 04/18/19 21:10 21:20 Pulse Rate 55 L 57 L Respiratory 12 12 Rate Blood Pressure 178/73 O2 Sat by Pulse Oximetry Medical Decision Making - Lab Data Result diagrams: 04/18/19 19:39 04/18/19 19:39 Lab Results 04/18/19 04/18/19 04/18/19 Range/Units 19:17 19:39 19:39 WBC 11.2 H (3.8-10.6) k/uL RBC 4.33 (3.80-5.40) m/uL Hgb 12.7 (11.4-16.0) gm/dL Hct 39.7 (34.0-46.0) % MCV 91.8 (80.0-100.0) fL MCH 29.2 (25.0-35.0) pg MCHC 31.8 (31.0-37.0) g/dL RDW 15.2 (11.5-15.5) % Plt Count 253 (150-450) k/uL Neutrophils % 76 % Lymphocytes % 11 % Monocytes % 8 % Eosinophils % 2 % Basophils % 1 % Neutrophils # 8.5 H (1.3-7.7) k/uL Lymphocytes # 1.3 (1.0-4.8) k/uL Monocytes # 0.9 (0-1.0) k/uL Eosinophils # 0.3 (0-0.7) k/uL Basophils # 0.1 (0-0.2) k/uL Sodium 141 (137-145) mmol/L Potassium 4.1 (3.5-5.1) mmol/L Chloride 101 (98-107) mmol/L Carbon Dioxide 26 (22-30) mmol/L Anion Gap 14 mmol/L BUN 49 H (7-17) mg/dL Creatinine 7.46 H* (0.52-1.04) mg/dL Est GFR (CKD-EPI)AfAm 6 (>60 ml/min/1.73 sqM) Est GFR (CKD-EPI)NonAf 5 (>60 ml/min/1.73 sqM) Glucose 89 (74-99) mg/dL POC Glucose (mg/dL) 114 H (75-99) mg/dL POC Glu Lingo Cleaner ID Thu Salazar A Calcium 9.5 (8.4-10.2) mg/dL Magnesium 3.6 H (1.6-2.3) mg/dL Troponin I (0.000-0.034) ng/mL 04/18/19 04/18/19 Range/Units 19:39 20:30 WBC (3.8-10.6) k/uL RBC (3.80-5.40) m/uL Hgb (11.4-16.0) gm/dL Hct (34.0-46.0) % MCV (80.0-100.0) fL MCH (25.0-35.0) pg MCHC (31.0-37.0) g/dL RDW (11.5-15.5) % Plt Count (150-450) k/uL Neutrophils % % Lymphocytes % % Monocytes % % Eosinophils % % Basophils % % Neutrophils # (1.3-7.7) k/uL Lymphocytes # (1.0-4.8) k/uL Monocytes # (0-1.0) k/uL Eosinophils # (0-0.7) k/uL Basophils # (0-0.2) k/uL Sodium (137-145) mmol/L Potassium (3.5-5.1) mmol/L Chloride (98-107) mmol/L Carbon Dioxide (22-30) mmol/L Anion Gap mmol/L BUN (7-17) mg/dL Creatinine (0.52-1.04) mg/dL Est GFR (CKD-EPI)AfAm (>60 ml/min/1.73 sqM) Est GFR (CKD-EPI)NonAf (>60 ml/min/1.73 sqM) Glucose (74-99) mg/dL POC Glucose (mg/dL) 93 (75-99) mg/dL POC Glu Lingo [employer]er CAITLYN Thu Salazar Dileep Calcium (8.4-10.2) mg/dL Magnesium (1.6-2.3) mg/dL Troponin I <0.012 (0.000-0.034) ng/mL Disposition Clinical Impression: Prolonged QT interval Disposition: ADMITTED IP TO THIS HOSP Condition: Fair Referrals: Jasbir Malone DO [Primary Care Provider] - 1-2 days Decision Time: 21:43
[2019-04-18 19:37] LABS: Glucose,Whole Blood 114 mg/dL (75-99)
[2019-04-18 20:01] LABS: Basophils # (A) 0.1 k/uL (0-0.2); Basophils % (A) 1 %; Eosinophils # (A) 0.3 k/uL (0-0.7); Eosinophils % (A) 2 %; HCT 39.7 % (34.0-46.0); HGB 12.7 gm/dL (11.4-16.0); Lymphocytes # (A) 1.3 k/uL (1.0-4.8); Lymphocytes % (A) 11 %; MCH 29.2 pg (25.0-35.0); MCHC 31.8 g/dL (31.0-37.0); MCV 91.8 fL (80.0-100.0); Mean Platelet Volume 7.8; Monocytes # (A) 0.9 k/uL (0-1.0); Monocytes % (A) 8 %; Neutrophils # (A) 8.5 k/uL (1.3-7.7); Neutrophils % (A) 76 %; Platelet Count 253 k/uL (150-450); RBC 4.33 m/uL (3.80-5.40); RDW 15.2 % (11.5-15.5); WBC 11.2 k/uL (3.8-10.6)
--- NOTE | 2019-04-18 20:08 | XR ---
EXAMINATION TYPE: XR chest 2V DATE OF EXAM: 04/18/2019 COMPARISON: 02/15/2018 HISTORY: Hyperglycemia. Hypertension TECHNIQUE: Frontal and lateral views of the chest are obtained. FINDINGS: Heart is enlarged. Lungs are clear. There is no heart failure. Thoracic aorta is atheromat ous. There are sternal wires. Costophrenic angles are clear. IMPRESSION: Cardiomegaly. No active cardiopulmonary disease. There is clearing of right pleural effu jaswinder and mild pulmonary congestion compared to old exam.
[2019-04-18 20:22] LABS: Calcium 9.5 mg/dL (8.4-10.2); Magnesium 3.6 mg/dL (1.6-2.3); Potassium 4.1 mmol/L (3.5-5.1)
[2019-04-18 20:51] LABS: Glucose,Whole Blood 93 mg/dL (75-99)
--- NOTE | 2019-04-18 21:04 | CT ---
EXAMINATION TYPE: CT brain stephane salguero DATE OF EXAM: 04/18/2019 COMPARISON: 02/15/2018 HISTORY: Altered with hypoglycemia CT DLP: 1228.6 mGycm Automated exposure control for dose reduction was used. TECHNIQUE: CT scan of the head and cervical spine are performed without contrast. FINDINGS: There is cerebral cortical atrophy. There is no mass effect nor midline shift. There is n o sign of intracranial hemorrhage. There are a few tiny lacunar infarcts in the internal capsule bila terally that measure 2 to 3 mm. Calvarium is intact. Cervical vertebra have normal alignment. Posterior elements are intact. There is some spondylotic barry nge in the cervical spine. Skull base is intact. IMPRESSION: Mild atrophy and chronic small vessel ischemia. No acute intracranial abnormality. Mild degenerative disc changes in the cervical spine. No fracture seen.
[2019-04-18] MEDS ORDERED: NALOXONE 0.4 MG/ML 1 ML VIAL IV PRN (21:43)
[2019-04-18] MEDS ORDERED: ACETAMINOPHEN TAB 325 MG TAB PO PRN (21:43)
[2019-04-18 22:13] LABS: Glucose,Whole Blood 91 mg/dL (75-99)
[2019-04-19 03:46] LABS: Glucose,Whole Blood 108 mg/dL (75-99)
[2019-04-19] MEDS: CALCIUM CARB-MAG CARB-FOLIC 1 EACH TAB PO SCH ×3 (06:46→17:36)
[2019-04-19] MEDS ORDERED: FAMOTIDINE 20 MG TAB PO SCH (09:00)
--- NOTE | 2019-04-19 09:07 | P.HPIM ---
History of Present Illness H&P Date: 04/19/19 Chief Complaint: Hypoglycemia This is a 73-year-old female with end-stage renal disease, diabetes mellitus and multiple other medical issues brought into the ER by EMS secondary to hypoglycemia. EMS reports a blood sugar of 47. Patient was given an amp of D50 with significant improvement. On arrival to the ER, BS 89, VSS, elevated BUN/creatinine,lytes WNL, missed dialysis yesterday. Patient recalls taking her Levemir in the morning, 40 units, +8 units of NovoLog prior to eating lunch. Denies nausea vomiting or abdominal pain. Denies lightheadedness dizziness or f ocal deficits. Denies chest pain, palpitations or shortness of breath. EKG reporting sinus bradycardia with prolonged QT. Troponin negative 2, magnesium elevated, 3.6 .Head/C-spine CT, chest x-ray unremarkable. Afebrile, WBC 11.2. Cardiology consulted. Review of Systems ROS Statement: Those systems with pertinent positive or pertinent negative responses have been documented in the HPI. ROS Other: All systems not noted in ROS Statement are negative. Past Medical History Past Medical History: Coronary Artery Disease (CAD), Chest Pain / Angina, Diabetes Mellitus, Dialysis, Hyperlipidemia, Hypertension, Myocardial Infarction (VT), Renal Disease Additional Past Medical History / Comment(s): End-stage renal disease with hemodialysis 3 times a week usually has on . , mon.-left arm AV fistula, Non-STEMI 03/14/16, peripheral neuropathy bilateral feet cataracts bilaterally, frequent UTI'S, stress incontinence.lt. finger wound Last Myocardial Infarction Date:: 07/15/2017 History of Any Multi-Drug Resistant Organisms: None Reported Past Surgical History: Appendectomy, Cholecystectomy, Heart Catheterization, Heart Catheterization With Stent, Tonsillectomy Additional Past Surgical History / Comment(s): 03/15/16 PTCA with stent to mid LAD,06-07-16 HEART CATH STENT TO PROX RCA. Restented mid LAD 11/20/16 A/V fistula with revision L upper arm, history of Lasix eye surgery and cataract removal. Past Anesthesia/Blood Transfusion Reactions: No Reported Reaction Date of Last Stent Placement:: 11/21/2016 Past Psychological History: Depression Additional Psychological History / Comment(s): . Smoking Status: Never smoker Past Alcohol Use History: None Reported Additional Past Alcohol Use History / Comment(s): Pt states she started smoking at age 21 (1965) and was a 5 cigarette a day smoker- she only smoked for about 6 months. Past Drug Use History: None Reported - Past Family History Father Family Medical History: Diabetes Mellitus Additional Family Medical History / Comment(s): Father of diabetic complications in his 40's Mother Family Medical History: Cancer, Myocardial Infarction (VT) Additional Family Medical History / Comment(s): Cancer unknown type. Mother of a VT in her early 50's Brother(s) Family Medical History: Cancer Additional Family Medical History / Comment(s): Her brother from lung cancer and cirrhosis of the liver. Medications and Allergies Home Medications Medication Instructions Recorded Confirmed Type Folic Acid-Vit B Complex-Vit C 1 cap PO DAILY 06/06/16 04/18/19 History [Nephrocaps] Clopidogrel [Plavix] 75 mg PO DAILY #30 tab 11/22/16 04/18/19 Rx Cholecalciferol [Vitamin D3 (25 1,000 unit PO DAILY tab 07/18/17 04/18/19 Rx Mcg = 1000 Iu)] Cyanocobalamin [Vitamin B-12] 1,000 mcg PO DAILY tab 07/18/17 04/18/19 Rx Aspirin EC [Ecotrin Low Dose] 81 mg PO DAILY 02/15/18 04/18/19 History Atorvastatin [Lipitor] 80 mg PO HS 02/15/18 04/18/19 History Calcium Acetate [PhosLo] 1,334 mg PO AC-BID 02/15/18 04/18/19 History Calcium Carb-Mag Carb-Folic 1 tab PO AC-TID 02/15/18 04/18/19 History [Magnebind 400] Citalopram Hydrobromide [CeleXA] 20 mg PO DAILY 02/15/18 04/18/19 History Furosemide [Lasix] 40 mg PO DAILY 02/15/18 04/18/19 History INSULIN ASPART (NovoLOG) [NovoLOG See Protocol SQ AC-TID 02/15/18 04/18/19 History (formulary)] Lisinopril [Zestril] 10 mg PO HS 02/15/18 04/18/19 History Insulin Detemir [Levemir Flextouch] 40 units SQ DAILY 04/18/19 04/19/19 History Allergies Allergy/AdvReac Type Severity Reaction Status Date / Time glyburide [From Diabeta] Allergy Rash/Hives Verified 04/18/19 18:45 Physical Exam Vitals: Vital Signs Temp Pulse Pulse Resp BP BP Pulse Ox 04/19/19 03:30 97.7 F 62 18 173/72 99 04/18/19 23:20 97.6 F 62 18 132/64 96 04/18/19 21:20 57 L 12 178/73 04/18/19 21:10 55 L 12 04/18/19 21:00 55 L 14 187/72 04/18/19 20:50 54 L 11 L 04/18/19 20:40 56 L 14 187/72 04/18/19 20:30 57 L 14 178/72 04/18/19 20:20 178/72 04/18/19 20:10 56 L 16 178/72 04/18/19 20:00 57 L 12 176/74 04/18/19 19:30 152/62 04/18/19 19:20 152/62 100 04/18/19 19:10 98 04/18/19 19:00 146/59 99 04/18/19 18:33 59 L 16 138/54 100 Intake and Output 04/18/19 04/19/19 04/19/19 22:59 06:59 14:59 Other: Weight 77.111 kg PHYSICAL EXAM: VITAL SIGNS: As above GENERAL: Sitting up in bed, no acute distress, oral mucosa moist HEENT: Conjunctivae normal. eyes normal. NECK: No JVD. No thyroid enlargement. No LNs CARDIOVASCULAR: S1, S2 muffled. No murmur RESPIRATION: Breath sounds diminished in the bases. No rhonchi or crackles. No bronchial breathing. ABDOMEN: Soft, nontender . No guarding. no masses palpable.Bowel sounds heard. LEGS: No edema. no swelling. PSYCHIATRY: Alert and oriented -3, mood and affect normal. NERVOUS SYSTEM: Cranial N 2-12 grossly normal. Moves all limbs. No focal deficits. Skin: no lesions, no rash.Warm,dry, Left Upper Extremity Av fistula present. Joints: No active swelling. No inflammation. Lymphatic system. No LN neck axilla or groin. Results CBC & Chem 7: 04/18/19 19:39 04/18/19 19:39 Labs: Abnormal Lab Results - Last 24 Hours (Table) 04/18/19 04/18/19 04/18/19 Range/Units 19:17 19:39 19:39 WBC 11.2 H (3.8-10.6) k/uL Neutrophils # 8.5 H (1.3-7.7) k/uL BUN 49 H (7-17) mg/dL Creatinine 7.46 H* (0.52-1.04) mg/dL POC Glucose (mg/dL) 114 H (75-99) mg/dL Magnesium 3.6 H (1.6-2.3) mg/dL 04/19/19 Range/Units 03:45 WBC (3.8-10.6) k/uL Neutrophils # (1.3-7.7) k/uL BUN (7-17) mg/dL Creatinine (0.52-1.04) mg/dL POC Glucose (mg/dL) 108 H (75-99) mg/dL Magnesium (1.6-2.3) mg/dL Thrombosis Risk Factor Assmnt - Choose All That Apply Each Factor Represents 1 point: Abnormal pulmonary function (COPD), Obesity (BMI >25) Each Risk Factor Represents 2 Points: Age 61-74 years Other congenital or acquired thrombophilia - If yes, enter type in comment: No Thrombosis Risk Factor Assessment Total Risk Factor Score: 4 Thrombosis Risk Factor Assessment Level: Moderate Risk Assessment and Plan Assessment: -Hypoglycemia -Diabetes mellitus -Prolonged QT interval, etiology unclear -ESRD on hemodialysis -Hypermagnesemia Plan: Continue on current medication regime ,monitoring and symptomatic dominique tment. Telemetry. Cardiology consulted. Close monitoring of Accu-Cheks. Nephrology consulted for dialysis. All meds have been reviewed and resumed. GI and DVT prophylaxis in place. The impression and plan of care has been dictated as directed. : I performed a history and examination of this patient, discussed the same with the dictator. I agree with the dictator's note ,documented as a scribe. Any additional findings or plans will be noted.
[2019-04-19] MEDS: FUROSEMIDE 40 MG TAB PO SCH (09:27)
[2019-04-19] MEDS: ASPIRIN 81 MG PO SCH (09:27)
[2019-04-19] MEDS: CLOPIDOGREL 75 MG TAB PO SCH (09:27)
[2019-04-19] MEDS: CHOLECALCIFEROL 1,000 UNIT TAB PO SCH (09:28)
--- NOTE | 2019-04-19 10:02 | P.NPCON ---
History of Present Illness - Reason for Consult end stage renal disease - History of Present Illness Reason for consultation: End-stage renal disease History of present illness: Patient is a 73-year-old female seen in renal consultation for end-stage renal disease. Patient was evaluated in the emergency room. Patient is maintained on hemodialysis on a Monday schedule via left upper extremity AV fistula. Patient's last hemodialysis was on Monday. Patient missed a treatment yesterday and was supposed to go for treatment today but and abdomen the hospital. According to the son, he found the patient to be less responsive and lethargic. When EMS was called her blood sugar was 48 and on repeat check it was 42. Due to difficult IV access the EMS brought the patient to the [facility]. Her blood sugar is now better. She is awake and alert. Denies chest pain or shortness of breath. No vomiting or diarrhea. Hemodynamically stable. Vital signs are stable. General: The patient appeared well nourished and normally developed. HEENT: Head exam is unremarkable. Neck is without jugular venous distension. LUNGS: Lungs are clear to auscultation and percussion. Breath sounds decreased. HEART: Rate and Rhythm are regular. First and second heart sounds normal. No murmurs, rubs or gallops. ABDOMEN: Abdominal exam reveals normal bowel sounds. Non-tender and non- distended. No evidence of peritonitis. EXTREMITITES: No clubbing, cyanosis, or edema. Past Medical History Past Medical History: Coronary Artery Disease (CAD), Chest Pain / Angina, Diabetes Mellitus, Dialysis, Hyperlipidemia, Hypertension, Myocardial Infarction (CT), Renal Disease Additional Past Medical History / Comment(s): End-stage renal disease with hemodialysis 3 times a week usually has on . , mon.-left arm AV fistula, Non-STEMI 03/14/16, peripheral neuropathy bilateral feet cataracts bilaterally, frequent UTI'S, stress incontinence.lt. finger wound Last Myocardial Infarction Date:: 07/15/2017 History of Any Multi-Drug Resistant Organisms: None Reported Past Surgical History: Appendectomy, Cholecystectomy, Heart Catheterization, Heart Catheterization With Stent, Tonsillectomy Additional Past Surgical History / Comment(s): 03/15/16 PTCA with stent to mid LAD,06-07-16 HEART CATH STENT TO PROX RCA. Restented mid LAD 11/20/16 A/V fistula with revision L upper arm, history of Lasix eye surgery and cataract removal. Past Anesthesia/Blood Transfusion Reactions: No Reported Reaction Date of Last Stent Placement:: 11/21/2016 Past Psychological History: Depression Additional Psychological History / Comment(s): . Smoking Status: Never smoker Past Alcohol Use History: None Reported Additional Past Alcohol Use History / Comment(s): Pt states she started smoking at age 21 (1965) and was a 5 cigarette a day smoker- she only smoked for about 6 months. Past Drug Use History: None Reported - Past Family History Father Family Medical History: Diabetes Mellitus Additional Family Medical History / Comment(s): Father of diabetic complications in his 40's Mother Family Medical History: Cancer, Myocardial Infarction (CT) Additional Family Medical History / Comment(s): Cancer unknown type. Mother of a CT in her early 50's Brother(s) Family Medical History: Cancer Additional Family Medical History / Comment(s): Her brother from lung cancer and cirrhosis of the liver. Medications and Allergies Home Medications Medication Instructions Recorded Confirmed Type Folic Acid-Vit B Complex-Vit C 1 cap PO DAILY 06/06/16 04/18/19 History [Nephrocaps] Clopidogrel [Plavix] 75 mg PO DAILY #30 tab 11/22/16 04/18/19 Rx Cholecalciferol [Vitamin D3 (25 1,000 unit PO DAILY tab 07/18/17 04/18/19 Rx Mcg = 1000 Iu)] Cyanocobalamin [Vitamin B-12] 1,000 mcg PO DAILY tab 07/18/17 04/18/19 Rx Aspirin EC [Ecotrin Low Dose] 81 mg PO DAILY 02/15/18 04/18/19 History Atorvastatin [Lipitor] 80 mg PO HS 02/15/18 04/18/19 History Calcium Acetate [PhosLo] 1,334 mg PO AC-BID 02/15/18 04/18/19 History Calcium Carb-Mag Carb-Folic 1 tab PO AC-TID 02/15/18 04/18/19 History [Magnebind 400] Citalopram Hydrobromide [CeleXA] 20 mg PO DAILY 02/15/18 04/18/19 History Furosemide [Lasix] 40 mg PO DAILY 02/15/18 04/18/19 History INSULIN ASPART (NovoLOG) [NovoLOG See Protocol SQ AC-TID 02/15/18 04/18/19 History (formulary)] Lisinopril [Zestril] 10 mg PO HS 02/15/18 04/18/19 History Insulin Detemir [Levemir Flextouch] 40 units SQ DAILY 04/18/19 04/19/19 History Allergies Allergy/AdvReac Type Severity Reaction Status Date / Time glyburide [From Diabeta] Allergy Rash/Hives Verified 04/18/19 18:45 Physical Exam Vitals: Vital Signs Temp Pulse Pulse Resp BP BP Pulse Ox 04/19/19 08:50 96.9 F L 74 18 166/78 96 04/19/19 03:30 97.7 F 62 18 173/72 99 04/18/19 23:20 97.6 F 62 18 132/64 96 04/18/19 21:20 57 L 12 178/73 04/18/19 21:10 55 L 12 04/18/19 21:00 55 L 14 187/72 04/18/19 20:50 54 L 11 L 04/18/19 20:40 56 L 14 187/72 04/18/19 20:30 57 L 14 178/72 04/18/19 20:20 178/72 04/18/19 20:10 56 L 16 178/72 04/18/19 20:00 57 L 12 176/74 04/18/19 19:30 152/62 04/18/19 19:20 152/62 100 04/18/19 19:10 98 04/18/19 19:00 146/59 99 04/18/19 18:33 59 L 16 138/54 100 Intake and Output 04/18/19 04/19/19 04/19/19 22:59 06:59 14:59 Other: Weight 77.111 kg Results - Lab Results Most recent lab results Calcium 9.5 mg/dL (8.4-10.2) 04/18/19 19:39 Magnesium 3.6 mg/dL (1.6-2.3) H 04/18/19 19:39 04/18/19 19:39 04/18/19 19:39 Assessment and Plan Plan: Assessment: 1. End-stage renal disease maintained on hemodialysis on a Monday schedule via left upper extremity AV fistula. 2. Hypoglycemia. Resolved. 3. Hypertension with chronic kidney disease. 4. Diabetes mellitus. 5. Chronic kidney disease mineral bone disease maintained on PhosLo and magnebind. 6. History of coronary artery disease. Plan: Hemodialysis today with goal 1-1/2-2 L ultrafiltration. Another treatment tomorrow per her outpatient schedule. Home medications have been resumed. Thank you for the consultation. I will continue to follow the patient with you during her hospital stay.
[2019-04-19 10:12] LABS: Glucose,Whole Blood 95 mg/dL (75-99)
[2019-04-19] MEDS: CITALOPRAM HYDROBROMIDE 20 MG TAB PO SCH (10:12)
[2019-04-19 11:21] LABS: Glucose,Whole Blood 88 mg/dL (75-99)
[2019-04-19] MEDS: INSULIN ASPART (NovoLOG) 100 UNIT/ML VIAL SQ SCH ×3 (11:22→21:04)
[2019-04-19] MEDS: CALCIUM ACETATE 667 MG CAP PO SCH (11:59)
[2019-04-19 17:11] LABS: Glucose,Whole Blood 170 mg/dL (75-99)
[2019-04-19 19:44] LABS: Hemoglobin A1C 7.4 % (4.0-6.0)
[2019-04-19 20:27] LABS: Glucose,Whole Blood 268 mg/dL (75-99)
[2019-04-19] MEDS ORDERED: LISINOPRIL 10 MG TAB PO SCH (21:00)
[2019-04-19] MEDS ORDERED: ATORVASTATIN 80 MG TAB PO SCH (21:00)
[2019-04-19] MEDS: FAMOTIDINE 20 MG TAB PO SCH (21:04)
[2019-04-20 06:47] LABS: Glucose,Whole Blood 159 mg/dL (75-99)
[2019-04-20 08:21] LABS: Basophils # (A) 0.1 k/uL (0-0.2); Basophils % (A) 1 %; Eosinophils # (A) 0.5 k/uL (0-0.7); Eosinophils % (A) 7 %; HCT 38.4 % (34.0-46.0); HGB 12.2 gm/dL (11.4-16.0); Lymphocytes # (A) 1.8 k/uL (1.0-4.8); Lymphocytes % (A) 22 %; MCH 28.9 pg (25.0-35.0); MCHC 31.6 g/dL (31.0-37.0); MCV 91.4 fL (80.0-100.0); Mean Platelet Volume 7.6; Monocytes # (A) 0.5 k/uL (0-1.0); Monocytes % (A) 6 %; Neutrophils # (A) 5.1 k/uL (1.3-7.7); Neutrophils % (A) 62 %; Platelet Count 281 k/uL (150-450); RBC 4.21 m/uL (3.80-5.40); WBC 8.1 k/uL (3.8-10.6)
[2019-04-20 08:31] LABS: Potassium 4.7 mmol/L (3.5-5.1)
[2019-04-20] MEDS ORDERED: CYANOCOBALAMIN 500 MCG TAB PO SCH (09:00)
[2019-04-20] MEDS ORDERED: FOLIC ACID-VIT B COMPLEX-VIT C 1 CAP PO SCH (09:00)
[2019-04-20] MEDS: INSULIN ASPART (NovoLOG) 100 UNIT/ML VIAL SQ SCH ×2 (09:13→12:32)
[2019-04-20] MEDS: CALCIUM ACETATE 667 MG CAP PO SCH (09:16)
[2019-04-20] MEDS: CLOPIDOGREL 75 MG TAB PO SCH (09:18)
[2019-04-20] MEDS: CITALOPRAM HYDROBROMIDE 20 MG TAB PO SCH (09:19)
[2019-04-20] MEDS: ASPIRIN 81 MG PO SCH (09:20)
[2019-04-20] MEDS: CHOLECALCIFEROL 1,000 UNIT TAB PO SCH (09:20)
[2019-04-20] MEDS: CALCIUM CARB-MAG CARB-FOLIC 1 EACH TAB PO SCH ×2 (09:20→12:38)
[2019-04-20] MEDS: FAMOTIDINE 20 MG TAB PO SCH (09:20)
[2019-04-20 11:44] LABS: Glucose,Whole Blood 169 mg/dL (75-99)
[2019-04-20 11:46] VITALS: BP 137/62; PULSE 65; RESP 16; TEMP 98.1
[2019-04-20] MEDS: FUROSEMIDE 40 MG TAB PO SCH (12:32)
--- NOTE | 2019-04-20 12:49 | P.HPIM ---
History of Present Illness 73-year-old [place] female was admitted secondary to hypoglycemia with blood sugars and 40s. Patient blood sugars improved now. Patient did not require any insulin. May require long-acting insulin as an outpatient as I do not know the patient very well have discharged her on sliding scale insulin may need long- acting insulin as an outpatient. Patient was also found to have prolonged QT for which she I'm cutting the dose of Celexa and EKG need to be repeated as an outpatient. Patient had hemodialysis today after that patient will be discharged. PHYSICAL EXAMINATION: GENERAL: The patient is alert and oriented x3, not in any acute distress. Well developed, well nourished. HEENT: Pupils are round and equally reacting to light. EOMI. No scleral icterus. No conjunctival pallor. Normocephalic, atraumatic. No pharyngeal erythema. No thyromegaly. CARDIOVASCULAR: S1 and S2 present. No murmurs, rubs, or gallops. PULMONARY: Chest is clear to auscultation, no wheezing or crackles. ABDOMEN: Soft, nontender, nondistended, normoactive bowel sounds. No palpable organomegaly. MUSCULOSKELETAL: No joint swelling or deformity. EXTREMITIES: No cyanosis, clubbing, or pedal edema. NEUROLOGICAL: Gross neurological examination did not reveal any focal deficits. SKIN: No rashes. The rest of the chronic medical problems Hospital physician course please refer to dictation from Dr. Malone as today Past Medical History Past Medical History: Coronary Artery Disease (CAD), Chest Pain / Angina, Diabetes Mellitus, Dialysis, Hyperlipidemia, Hypertension, Myocardial Infarction (CA), Renal Disease Additional Past Medical History / Comment(s): End-stage renal disease with hemodialysis 3 times a week usually has on . , sat.-left arm AV fistula, Non-STEMI 03/14/16, peripheral neuropathy bilateral feet cataracts bilaterally, frequent UTI'S, stress incontinence.lt. finger wound Last Myocardial Infarction Date:: 07/15/2017 History of Any Multi-Drug Resistant Organisms: None Reported Past Surgical History: Appendectomy, Cholecystectomy, Heart Catheterization, Heart Catheterization With Stent, Tonsillectomy Additional Past Surgical History / Comment(s): 03/15/16 PTCA with stent to mid LAD,06-07-16 HEART CATH STENT TO PROX RCA. Restented mid LAD 11/20/16 A/V fistula with revision L upper arm, history of Lasix eye surgery and cataract removal. Past Anesthesia/Blood Transfusion Reactions: No Reported Reaction Date of Last Stent Placement:: 11/21/2016 Past Psychological History: Depression Additional Psychological History / Comment(s): . Smoking Status: Never smoker Past Alcohol Use History: None Reported Additional Past Alcohol Use History / Comment(s): Pt states she started smoking at age 21 (1963) and was a 5 cigarette a day smoker- she only smoked for about 6 months. Past Drug Use History: None Reported - Past Family History Father Family Medical History: Diabetes Mellitus Additional Family Medical History / Comment(s): Father of diabetic complic ations in his 40's Mother Family Medical History: Cancer, Myocardial Infarction (CA) Additional Family Medical History / Comment(s): Cancer unknown type. Mother of a CA in her early 50's Brother(s) Family Medical History: Cancer Additional Family Medical History / Comment(s): Her brother from lung cancer and cirrhosis of the liver. Medications and Allergies Home Medications Medication Instructions Recorded Confirmed Type Folic Acid-Vit B Complex-Vit C 1 cap PO DAILY 06/06/16 04/18/19 History [Nephrocaps] Clopidogrel [Plavix] 75 mg PO DAILY #30 tab 11/22/16 04/18/19 Rx Cholecalciferol [Vitamin D3 (25 1,000 unit PO DAILY tab 07/18/17 04/18/19 Rx Mcg = 1000 Iu)] Cyanocobalamin [Vitamin B-12] 1,000 mcg PO DAILY tab 07/18/17 04/18/19 Rx Aspirin EC [Ecotrin Low Dose] 81 mg PO DAILY 02/15/18 04/18/19 History Atorvastatin [Lipitor] 80 mg PO HS 02/15/18 04/18/19 History Calcium Acetate [PhosLo] 1,334 mg PO AC-BID 02/15/18 04/18/19 History Calcium Carb-Mag Carb-Folic 1 tab PO AC-TID 02/15/18 04/18/19 History [Magnebind 400] Furosemide [Lasix] 40 mg PO DAILY 02/15/18 04/18/19 History Lisinopril [Zestril] 10 mg PO HS 02/15/18 04/18/19 History Citalopram Hydrobromide [CeleXA] 10 mg PO DAILY #0 06/01/19 05/30/19 Rx INSULIN LISPRO (humaLOG) [humaLOG] 1 injection SQ DIRECTED #10 ml 04/20/19 Rx Insulin Detemir [Levemir Flextouch] 20 units SQ DAILY #0 04/20/19 04/19/19 Rx Allergies Allergy/AdvReac Type Severity Reaction Status Date / Time glyburide [From Diabeta] Allergy Rash/Hives Verified 04/18/19 18:45 Physical Exam Vitals: Vital Signs Temp Pulse Pulse Resp BP Pulse Ox 04/20/19 11:41 98.1 F 65 16 137/62 04/20/19 07:51 97.9 F 70 18 143/64 94 L 04/20/19 01:16 97.8 F 63 17 138/57 99 04/19/19 20:00 98.2 F 69 18 159/73 100 04/19/19 14:50 97.7 F 77 18 122/60 04/19/19 14:39 97.9 F 77 16 127/60 98 Intake and Output 04/19/19 04/20/19 04/20/19 22:59 06:59 14:59 Intake Total 300 Output Total 2300 Balance -1999 Intake: Hemodialysis 300 Output: Hemodialysis 2300 Other: Weight 73.5 kg Results CBC & Chem 7: 04/20/19 07:30 04/20/19 07:30 Labs: Abnormal Lab Results - Last 24 Hours (Table) 04/18/19 04/19/19 04/19/19 Range/Units 19:39 17:06 20:24 Sodium (137-145) mmol/L Chloride (98-107) mmol/L Carbon Dioxide (22-30) mmol/L BUN (7-17) mg/dL Creatinine (0.52-1.04) mg/dL Glucose (74-99) mg/dL POC Glucose (mg/dL) 170 H 268 H (75-99) mg/dL Hemoglobin A1c 7.4 H (4.0-6.0) % 04/20/19 04/20/19 04/20/19 Range/Units 06:46 07:30 11:42 Sodium 136 L (137-145) mmol/L Chloride 94 L (98-107) mmol/L Carbon Dioxide 34 H (22-30) mmol/L BUN 32 H (7-17) mg/dL Creatinine 5.41 H (0.52-1.04) mg/dL Glucose 172 H (74-99) mg/dL POC Glucose (mg/dL) 159 H 169 H (75-99) mg/dL Hemoglobin A1c (4.0-6.0) % Thrombosis Risk Factor Assmnt - Choose All That Apply Each Factor Represents 1 point: Abnormal pulmonary function (COPD), Obesity (BMI >25) Each Risk Factor Represents 2 Points: Age 61-74 years Other congenital or acquired thrombophilia - If yes, enter type in comment: No Thrombosis Risk Factor Assessment Total Risk Factor Score: 4 Thrombosis Risk Factor Assessment Level: Moderate Risk
--- NOTE | 2019-04-20 15:10 | PN ---
PROGRESS NOTE Patient is seen for followup for end-stage renal disease. She is currently seen on hemodialysis, tolerating her treatment well. The patient was admitted with hypoglycemia. Her blood sugars are improved. Cardiology has been consulted. Patient did have a prolonged QT interval as well. Currently, she has been ambulating in the hallway with no significant chest pains or shortness of breath. Heart rate has been staying at 60 to 70 beats per minute. PHYSICAL EXAMINATION: This morning, blood pressure 143/64, heart rate 70 per minute. Patient is afebrile. Examination of the heart S1, S2. Examination of the lungs, bilateral breath sounds are heard. Abdomen is soft, nontender. Examination of lower extremities shows no significant edema. LAB: Show sodium 136, potassium 4.7, BUN 32, creatinine 5.4, hemoglobin 12.2. ASSESSMENT: 1. End-stage renal disease, on hemodialysis on a Monday, , Monday schedule, currently seen on dialysis, tolerating treatment well. 2. Hypoglycemia on initial admission, currently improved. 3. Prolonged QT interval noted on initial admission. Cardiology consult is pending. 4. Mild volume overload. Expect further improvement post hemodialysis today. 5. Hypertension. Continue with DAMIEN inhibitors. Plan await cardiology input. MMODL / IJN: [id number] /
[2019-04-21] MEDS ORDERED: FAMOTIDINE 20 MG TAB PO SCH (09:00)
== END 2019-04-20 13:34 | disposition home or self-care (01) ==
LOC: EC 18:21 → 3SCARD 21:45 → 4SSUR 04-19 10:11
PROVIDERS: ADMIT Family Medicine; ATTEND Family Medicine
DX: E11.649 Type 2 diabetes mellitus with hypoglycemia without coma (principal); I45.81 Long QT syndrome; I12.0 Hypertensive chronic kidney disease with stage 5 chronic kidney disease or end stage renal disease; E11.22 Type 2 diabetes mellitus with diabetic chronic kidney disease; N18.6 End stage renal disease; Z99.2 Dependence on renal dialysis; D72.829 Elevated white blood cell count, unspecified; I25.10 Atherosclerotic heart disease of native coronary artery without angina pectoris; E78.5 Hyperlipidemia, unspecified; I25.2 Old myocardial infarction; E83.41 Hypermagnesemia; E11.42 Type 2 diabetes mellitus with diabetic polyneuropathy; N39.3 Stress incontinence (female) (male); F32.9 Major depressive disorder, single episode, unspecified; M89.8X9 Other specified disorders of bone, unspecified site; E87.70 Fluid overload, unspecified; J44.9 Chronic obstructive pulmonary disease, unspecified; E66.9 Obesity, unspecified; Z68.29 Body mass index [BMI] 29.0-29.9, adult; Z91.15 Patient's noncompliance with renal dialysis; Z87.440 Personal history of urinary (tract) infections; Z87.891 Personal history of nicotine dependence; Z90.49 Acquired absence of other specified parts of digestive tract; Z95.5 Presence of coronary angioplasty implant and graft; R79.89 Other specified abnormal findings of blood chemistry; Z79.82 Long term (current) use of aspirin; Z79.899 Other long term (current) drug therapy; Z79.4 Long term (current) use of insulin; Z79.02 Long term (current) use of antithrombotics/antiplatelets; Z88.8 Allergy status to other drugs, medicaments and biological substances; Z80.1 Family history of malignant neoplasm of trachea, bronchus and lung; Z83.79 Family history of other diseases of the digestive system
CPT/HCPCS: 90970; 99285; 36415; 93005; 80048 ×2; 83735; 84484; 85025 ×2; 83036; 71046; 72125; 70450; G0378 ×4; 90935

== ENCOUNTER 2019-05-04 10:06 | Emergency (ER) | payer MEDICARE, OTHER ==
[2019-05-04 10:16] VITALS: BP 158/78; PULSE 87; RESP 18; TEMP 98.3
--- NOTE | 2019-05-04 10:38 | ED ---
Wound/Laceration HPI <MertCleveland - Last Filed: 05/04/19 11:11> - General Source: patient, RN notes reviewed Mode of arrival: ambulatory Limitations: no limitations <Nick Rosas - Last Filed: 05/04/19 11:15> - General Chief Complaint: Wound/Laceration Stated Complaint: Toe pain Time Seen by Provider: 05/04/19 10:18 - History of Present Illness Initial Comments: 81-year-old female presents emergency Department chief complaint of wounds to her left foot first and second digit. Patient states his surgical days ago. She states that she's had this in the past started putting some ointment on it. Patient states that she felt it was likely better and felt that should be evaluated. 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 Patient denies any fevers or chills. Patient is in minimal discomfort. Patient has a known diabetic. Patient denies any prior amputations. (Nick Rosas) - Related Data Home Medications Medication Instructions Recorded Confirmed Folic Acid-Vit B Complex-Vit C 1 cap PO DAILY 06/06/16 05/04/19 [Nephrocaps] Aspirin EC [Ecotrin Low Dose] 81 mg PO DAILY 02/15/18 05/04/19 Atorvastatin [Lipitor] 80 mg PO HS 02/15/18 05/04/19 Calcium Acetate [PhosLo] 1,334 mg PO AC-BID 02/15/18 05/04/19 Calcium Carb-Mag Carb-Folic 1 tab PO AC-TID 02/15/18 05/04/19 [Magnebind 400] Furosemide [Lasix] 40 mg PO DAILY 02/15/18 05/04/19 Lisinopril [Zestril] 10 mg PO HS 02/15/18 05/04/19 Citalopram Hydrobromide [CeleXA] 20 mg PO DAILY 05/04/19 05/04/19 INSULIN ASPART (NovoLOG) [NovoLOG See Protocol SQ TID-W/MEALS 05/04/19 05/04/19 (formulary)] Insulin Detemir [Levemir Flextouch] 30 units SQ DAILY 05/04/19 05/04/19 Previous Rx's Medication Instructions Recorded Clopidogrel [Plavix] 75 mg PO DAILY #30 tab 11/22/16 Cholecalciferol [Vitamin D3 (25 1,000 unit PO DAILY tab 07/18/17 Mcg = 1000 Iu)] Cyanocobalamin [Vitamin B-12] 1,000 mcg PO DAILY tab 07/18/17 Cephalexin [Keflex] 500 mg PO Q6HR #40 cap 05/04/19 Allergies Allergy/AdvReac Type Severity Reaction Status Date / Time glyburide [From Diabeta] Allergy Rash/Hives Verified 05/04/19 10:57 Review of Systems ROS Other: All systems not noted in ROS Statement are negative. <[employer] - Last Filed: 05/04/19 11:11> ROS Other: All systems not noted in ROS Statement are negative. <Nick Rosas - Last Filed: 05/04/19 11:15> ROS Statement: Those systems with pertinent positive or pertinent negative responses have been documented in the HPI. Past Medical History Past Medical History: Coronary Artery Disease (CAD), Chest Pain / Angina, Diabetes Mellitus, Dialysis, Hyperlipidemia, Hypertension, Myocardial Infarction ([place]), Renal Disease Additional Past Medical History / Comment(s): End-stage renal disease with hemodialysis 3 times a week usually has on . thur, sat.-left arm AV fistula, Non-STEMI 03/14/16, peripheral neuropathy bilateral feet cataracts bilaterally, frequent UTI'S, stress incontinence.lt. finger wound Last Myocardial Infarction Date:: 07/15/2017 History of Any Multi-Drug Resistant Organisms: None Reported Past Surgical History: Appendectomy, Cholecystectomy, Heart Catheterization, Heart Catheterization With Stent, Tonsillectomy Additional Past Surgical History / Comment(s): 03/15/16 PTCA with stent to mid LAD,06-07-16 HEART CATH STENT TO PROX RCA. Restented mid LAD 11/20/16 A/V fistula with revision L upper arm, history of Lasix eye surgery and cataract removal. Past Anesthesia/Blood Transfusion Reactions: No Reported Reaction Date of Last Stent Placement:: 11/21/2016 Past Psychological History: Depression Smoking Status: Never smoker Past Alcohol Use History: None Reported Past Drug Use History: None Reported - Past Family History Father Family Medical History: Diabetes Mellitus Additional Family Medical History / Comment(s): Father of diabetic complications in his 40's Mother Family Medical History: Cancer, Myocardial Infarction ([place]) Additional Family Medical History / Comment(s): Cancer unknown type. Mother of a [place] in her early 50's Brother(s) Family Medical History: Cancer Additional Family Medical History / Comment(s): Her brother from lung cancer and cirrhosis of the liver. <Nick Rosas - Last Filed: 05/04/19 11:15> General Exam Limitations: no limitations General appearance: alert, in no apparent distress Head exam: Present: atraumatic, normocephalic, normal inspection Neck exam: Present: normal inspection, full ROM. Absent: tenderness, meningismus, lymphadenopathy Respiratory exam: Present: normal lung sounds bilaterally. Absent: respiratory distress, wheezes, rales, rhonchi, stridor Cardiovascular Exam: Present: regular rate, normal rhythm, normal heart sounds. Absent: systolic murmur, diastolic murmur, rubs, gallop, clicks Extremities exam: Present: other (Left foot first and second digit there are 2 ulcerated areas which are superficial there is some discoloration the second digit Refill is less than 2 seconds, pedal pulses equal bilaterally) Skin exam: Present: warm, dry <Nick Rosas - Last Filed: 05/04/19 11:15> Course <[employer] [employer] - Last Filed: 05/04/19 11:11> Vital Signs 05/04/19 10:13 Temperature 98.3 F Pulse Rate 87 Respiratory 18 Rate Blood Pressure 158/78 O2 Sat by Pulse 100 Oximetry - Reevaluation(s) Reevaluation #1: 05/04/19 11:11 PA supervision: I proceeded [id number] evaluation of the patient. I did discuss the findings with her. Patient does demonstrate evidence of the beginnings of peripheral vascular disease and compromise circulation to the toes. I do agree with the assessment and plan. She will follow-up. Patient is in agreement with this ([employer]) Medical Decision Making <Nick Rosas - Last Filed: 05/04/19 11:15> - Medical Decision Making 73-year-old female presented for wound to her left foot. Patient has superficial wounds were first and second digit. There is some discoloration to the second digit and did express concern that she is have close follow-up for amputation. Patient has no clinical signs of severe infection. Patient's x-ray is negative for acute cellulitis. Patient we placed on antibiotics prophylactically will follow-up with her vascular surgery Dr. Thompson and will provided wound care follow-up and podiatry. (Nick Rosas) - Lab Data Lab Results 05/04/19 Range/Units 11:04 POC Glucose (mg/dL) 256 H (75-99) mg/dL POC Glu Water Softener Servicer ID Lorna Caballero Disposition <MertCleveland - Last Filed: 05/04/19 11:11> Is patient prescribed a controlled substance at d/c from ED?: No Time of Disposition: 11:15 <Nick Rosas - Last Filed: 05/04/19 11:15> Clinical Impression: Diabetic foot ulcer Disposition: HOME SELF-CARE Condition: Stable Instructions (If sedation given, give patient instructions): Diabetic Foot Ulcers (ED) Additional Instructions: Please return to the Emergency Department if symptoms worsen or any other concerns. Prescriptions: Cephalexin [Keflex] 500 mg PO Q6HR #40 cap Referrals: Jasbir Malone DO [Primary Care Provider] - 1-2 days Russ Thompson MD [STAFF PHYSICIAN] - 1-2 days Montrell Garcia DPM [STAFF PHYSICIAN] - 1-2 days [facility] [NON-STAFF] - 1-2 days
--- NOTE | 2019-05-04 10:48 | XR ---
EXAMINATION TYPE: XR foot complete LT , 3 VIEWS DATE OF EXAM ORDERED: 05/04/2019 HISTORY: 1st and 2nd toe wounds. COMPARISON: None. FINDINGS: There is vascular calcification present no fracture, dislocation or other bony destructive lesion is seen. IMPRESSION: NO ACUTE OSSEOUS LESION.
[2019-05-04 11:05] LABS: Glucose,Whole Blood 256 mg/dL (75-99)
== END 2019-05-04 11:26 | disposition home or self-care (01) ==
LOC: EC 10:06
DX: E11.621 Type 2 diabetes mellitus with foot ulcer (principal); L97.529 Non-pressure chronic ulcer of other part of left foot with unspecified severity; I25.10 Atherosclerotic heart disease of native coronary artery without angina pectoris; I12.0 Hypertensive chronic kidney disease with stage 5 chronic kidney disease or end stage renal disease; N18.6 End stage renal disease; E11.22 Type 2 diabetes mellitus with diabetic chronic kidney disease; E11.40 Type 2 diabetes mellitus with diabetic neuropathy, unspecified; E78.5 Hyperlipidemia, unspecified; I25.2 Old myocardial infarction; Z99.2 Dependence on renal dialysis; F32.9 Major depressive disorder, single episode, unspecified; Z98.61 Coronary angioplasty status; Z95.818 Presence of other cardiac implants and grafts; Z79.82 Long term (current) use of aspirin; Z79.4 Long term (current) use of insulin; Z79.899 Other long term (current) drug therapy; Z88.8 Allergy status to other drugs, medicaments and biological substances
CPT/HCPCS: 36415; 99283

== ENCOUNTER → 2019-05-29 | Outpatient (CLI) | payer MEDICARE, OTHER ==
--- NOTE | 2019-06-05 11:38 | P.ARTDOP ---
Arterial Doppler LOWER EXTREMITY ARTERIAL DOPPLER: DATE OF SERVICE: 05/29/2019 Reason for study: Ulcers left foot. Doppler waveforms: Multiphasic at both femorals and popliteals and atypical below.. Pulse volume recording: Blunting distally, especially the toes on the left foot. Pressure gradients: Only at the foot level more on the left than the right. Ankle-brachial indices: Cannot occlude on the right and 0.99 on the left. Toe pressures: 80 on the right, 46 on the left Impression: Suspect false elevation of ankle pressures due to calcific wall disease. Suspect moderate bilateral fem-pop disease. Clinical correlation recommended..
== END | disposition home or self-care (01) ==
LOC: RADUSWWP 12:44
PROVIDERS: ATTEND Thoracic Surgery (Cardiothoracic Vascular Surgery)
DX: I70.245 Atherosclerosis of native arteries of left leg with ulceration of other part of foot (principal); E08.621 Diabetes mellitus due to underlying condition with foot ulcer; L97.522 Non-pressure chronic ulcer of other part of left foot with fat layer exposed
CPT/HCPCS: 93923

== ENCOUNTER → 2019-06-12 | Outpatient (CLI) | payer MEDICARE, OTHER ==
[2019-06-12 14:02] LABS: Potassium 3.6 mmol/L (3.5-5.1)
[2019-06-12 14:11] LABS: Anisocytosis Slight; Basophils # (A) 0.1 k/uL (0-0.2); Basophils % (A) 0 %; Eosinophils # (A) 0.5 k/uL (0-0.7); Eosinophils % (A) 4 %; HCT 37.4 % (34.0-46.0); HGB 11.9 gm/dL (11.4-16.0); Lymphocytes # (A) 1.6 k/uL (1.0-4.8); Lymphocytes % (A) 12 %; MCH 30.6 pg (25.0-35.0); MCHC 31.8 g/dL (31.0-37.0); MCV 96.1 fL (80.0-100.0); Macrocytosis Slight; Mean Platelet Volume 7.4; Monocytes # (A) 0.8 k/uL (0-1.0); Monocytes % (A) 6 %; Neutrophils # (A) 9.9 k/uL (1.3-7.7); Neutrophils % (A) 76 %; Platelet Count 330 k/uL (150-450); RBC 3.89 m/uL (3.80-5.40); RDW 17.7 % (11.5-15.5)
== END | disposition home or self-care (01) ==
LOC: LABPAT 12:37
PROVIDERS: ATTEND Surgery
DX: Z01.812 Encounter for preprocedural laboratory examination (principal); I70.262 Atherosclerosis of native arteries of extremities with gangrene, left leg
CPT/HCPCS: 36415; 80051; 82565; 84520; 85025

== ENCOUNTER 2019-06-17 09:56 | Day surgery (SDC) | payer MEDICARE, OTHER ==
[2019-06-17] MEDS ORDERED: ASPIRIN 325 MG TAB PO STA (10:04)
[2019-06-17] MEDS ORDERED: ALPRAZolam 0.25 MG TAB PO PRN (10:04)
[2019-06-17] MEDS ORDERED: SODIUM CHLORIDE 0.9% 1,000 ML in EMPTY BAG 1 BAG IV ONE (10:04)
[2019-06-17] MEDS ORDERED: ACETAMINOPHEN TAB 325 MG TAB ONE (10:15)
[2019-06-17] MEDS ORDERED: SODIUM CHLORIDE 0.9% 1,000 ML IV ONE (10:20)
[2019-06-17] MEDS ORDERED: INSULIN ASPART (NovoLOG) 100 UNIT/ML VIAL SQ ONE (10:33)
[2019-06-17] MEDS ORDERED: LIDOCAINE 1% INJ 10MG/ML (20 ML MDV) ONE (10:35)
[2019-06-17 10:42] LABS: Glucose,Whole Blood 220 mg/dL (75-99)
[2019-06-17 10:52] VITALS: RESP 16; TEMP 98.1
[2019-06-17] MEDS ORDERED: MIDAZOLAM PF (FBP) 2 MG/2 ML VIAL IV ONE (11:10)
[2019-06-17] MEDS ORDERED: MORPHINE SULFATE 4 MG/ML SYRINGE IV ONE (11:11)
[2019-06-17] MEDS ORDERED: LIDOCAINE 1% INJ 10MG/ML (20 ML MDV) SQ ONE (11:14)
[2019-06-17] MEDS ORDERED: IOPAMIDOL-250 100ML BTL INTRAARTER ONE (11:45)
[2019-06-17] MEDS ORDERED: HYDROcodone/APAP 5-325MG 1 EACH TAB PO PRN (12:06)
--- NOTE | 2019-06-17 12:34 | P.OP ---
Date of Procedure: 06/17/19 Preoperative Diagnosis: Left femoral occlusion with dry gangrenous changes first and second toes Postoperative Diagnosis: Same plus severe bilateral tibial artery occlusive disease with single-vessel runoff left lower extremity via the peroneal artery. Procedure(s) Performed: #1: Ultrasound-guided cannulation right common femoral artery. #2: Abdominal aortogram with runoffs. #3: Selective left femoral angiogram Implants: None Anesthesia: local Surgeon: Faisal Vanegas Estimated Blood Loss (ml): 5 IV fluids (ml): 100 Urine output (ml): 0 Pathology: none sent Condition: stable Disposition: same day Indications for Procedure: Patient is a 74-year-old female with a history of insulin-dependent diabetes mellitus as well as chronic kidney disease stage V who presented with leg dry gangrenous changes of the first and second toe left foot. Physical examination demonstrated femoral popliteal pulses be intact bilaterally while the tibial pulses were absent bilaterally. Dry gangrenous changes of the first and second toe were noted. Because of her tissue loss and absence of pulses patient is offered angiogram and possible percutaneous intervention. Description of Procedure: Patient was brought to special procedure suite. Both groins were sterilely prepped and draped in the usual manner. The patient did receive 1 mg of morphine 1 mg of Versed for moderate conscious sedation purposes. 1% Xylocaine was utilized for local anesthesia tissues overlying the right femoral artery. Through this anesthetized area and with the aid of ultrasound a multipurpose needle was utilized to cannulate the artery. Once cannulated Softip guidewire is advanced into the artery. The needle was withdrawn and a 5- Turkmen sheath was placed. 5-Turkmen Omni Flush catheter was advanced over guidewire positioned at the L1 level. Abdominal aortogram was performed. Subsequently the catheter was pulled down the level aortic bifurcation and iliofemoral, popliteal and tibial vessel angiography was performed. The catheter was then manipulated across the aortic bifurcation and advanced into the left femoral artery over a guidewire. Left femoral angiogram was then performed. Once adequate films were obtained the catheter was withdrawn as was the sheath and pressure was held at the puncture site until all evidence of bleeding ceased. Findings abdominal aortogram demonstrates a single renal arteries bilaterally. Heavily calcified mesenteric vessels are noted. The abdominal aorta itself is unremarkable. The right iliac system demonstrates a normally patent common external and internal segments. Right femoral angiography demonstrates the common and profundus femoris arteries to be patent. Superficial femoral artery is patent although experiences minor stenosis. Right popliteal angiography demonstrates the popliteal artery to be patent however does have a focal 80% stenosis at the mid popliteal level. Tibial angiography demonstrates what appears to be the peroneal artery to be patent over due to lack of contrastspecific more detailed findings can be given. Left iliac angiography demonstrates the common external and internal segments to be widely patent. Her graft left femoral angiography demonstrates the common and profundus femoris arteries to be patent. The SFA is patent however a high- grade stenosis over a very focal area at the adductor canal is noted. This stenosis is estimated to be approximate 90% in his eccentric. Left popliteal artery is patent however has a focal stenosis at the mid popliteal level estimated approximate 50%. Tibial angiography demonstrates the anterior tibial artery to be patent approximately however the occlude's approximate 3 cm distal from its origin. Tibial peroneal trunk as well as the peroneal artery are patent. The posterior tibial artery is never visualized. Total contrast volume 136 ML's of Isovue 250. Total fluoroscopy time 2.7 minutes.
--- NOTE | 2019-06-17 13:21 | IR ---
EXAMINATION TYPE: IR angio abdominal w runoff DATE OF EXAM: 06/17/2019 COMPARISON: NONE HISTORY: Fluoroscopy time. Fluoroscopy was provided to the referring clinician.
[2019-06-17 16:03] VITALS: BP 118/72; PULSE 55
== END 2019-06-17 16:40 | disposition home or self-care (01) ==
LOC: CATHCVL 09:56
PROVIDERS: ATTEND Surgery
DX: K55.1 Chronic vascular disorders of intestine (principal); E11.52 Type 2 diabetes mellitus with diabetic peripheral angiopathy with gangrene; E11.22 Type 2 diabetes mellitus with diabetic chronic kidney disease; I96 Gangrene, not elsewhere classified; N18.5 Chronic kidney disease, stage 5; Z79.4 Long term (current) use of insulin
CPT/HCPCS: 36247; 75625; 75716; C1894; C1769 ×4; J2270; J2001; Q9966; J2250

== ENCOUNTER 2019-07-08 12:06 | Day surgery (SDC) | payer MEDICARE, OTHER ==
[~2019-07-08 12:06] MED LIST changes: -ALBUMIN HUMAN 25% 50 ML IV ONE; -ALBUMIN HUMAN 5% 500 ML IVPB ONE; -ASPIRIN 325 MG TAB PO ONE; -ATORVASTATIN 10 MG TAB PO ONE; -CALCIUM CHLORIDE 100 MG/ML 10 ML SYRINGE IV ONE; -CHLORHEXIDINE GLUCONATE 15 ML CUP MUCOUS MEM ONE; -CLEVIDIPINE BUTYRATE 25 MG in EMPTY BAG 1 BAG IV ONE; -HEPARIN SODIUM 1,000 UN/ML (10ML VL) IV ONE; -HEPARIN SODIUM,PORCINE 5,000 UNIT in SODIUM CHLORIDE 0.9% 500 ML IV ONE; -INSULIN REGULAR 100 UNIT in SODIUM CHLORIDE 0.9% 100 ML IV ONE; -LACTATED RINGERS 1,000 ML IV ONE; -MAGNESIUM SULFATE MG 500 MG/ML VIAL IV ONE; -METOPROLOL TARTRATE 12.5 MG TAB PO ONE; -MUPIROCIN 2% OINT 22 GM TUBE NASAL ONE; -NITROGLYCERIN SL TABS 0.4 MG TAB SUBLINGUAL ONE; -NITROGLYCERIN-D5W PMX 25 MG/250 ML BTL IV ONE; -NITROGLYCERIN-D5W PMX 50 MG in DEXTROSE/WATER 1 250ML.BAG IV ONE; -NOREPINEPHRIN 4 MG-0.9% NS PMX 4 MG/250 ML ML IV ONE; -PAPAVERINE 360 MG in SODIUM CHLORIDE 0.9% 90 ML IV ONE; -PHENYLEPHRINE 40 MG in SODIUM CHLORIDE 0.9% 250 ML IV ONE; -PHENYLEPHRINE-0.9% NACL SYG 1 MG/10 ML SYRINGE IV ONE; -PROPOFOL 1,000 MG/100 ML VIAL IV ONE; -PROTAMINE SULFATE 10 MG/ML 25 ML VIAL IV ONE; -PROTAMINE SULFATE 250 MG in EMPTY BAG 1 BAG IV ONE; -SODIUM BICARB 8.4% 50 ML SYR (1 MEQ/ML) IV ONE; -SODIUM CHLORIDE 0.9% 1,000 ML IV ONE; +SODIUM CHLORIDE 0.9% 1,000 ML in EMPTY BAG 1 BAG IV ONE; -ceFAZolin 1,000 MG in SODIUM CHLORIDE 0.9% IRRIGATIO 1,000 ML IRRIGATION ONE; -ceFAZolin 2,000 MG in SODIUM CHLORIDE 0.9% 30 ML IVPB ONE
[2019-07-08] MEDS ORDERED: ASPIRIN 325 MG TAB ONE (12:19)
[2019-07-08 12:47] LABS: Glucose,Whole Blood 275 mg/dL (75-99)
[2019-07-08 12:49] LABS: Anisocytosis Slight; Basophils # (A) 0.1 k/uL (0-0.2); Basophils % (A) 1 %; Eosinophils # (A) 0.2 k/uL (0-0.7); Eosinophils % (A) 2 %; HCT 32.9 % (34.0-46.0); HGB 10.7 gm/dL (11.4-16.0); Hypochromasia Slight; Lymphocytes # (A) 1.3 k/uL (1.0-4.8); Lymphocytes % (A) 13 %; MCH 30.6 pg (25.0-35.0); MCHC 32.6 g/dL (31.0-37.0); MCV 93.9 fL (80.0-100.0); Mean Platelet Volume 7.6; Monocytes # (A) 0.6 k/uL (0-1.0); Monocytes % (A) 5 %; Neutrophils # (A) 8.3 k/uL (1.3-7.7); Neutrophils % (A) 78 %; Platelet Count 339 k/uL (150-450); RBC 3.51 m/uL (3.80-5.40); RDW 17.8 % (11.5-15.5); WBC 10.6 k/uL (3.8-10.6)
[2019-07-08] MEDS ORDERED: INSULIN ASPART (NovoLOG) 100 UNIT/ML VIAL SQ ONE (12:53)
[2019-07-08 12:56] LABS: Calcium 9.3 mg/dL (8.4-10.2); Potassium 4.1 mmol/L (3.5-5.1)
[2019-07-08] MEDS: INSULIN ASPART (NovoLOG) 100 UNIT/ML VIAL SQ SCH ×2 (17:15→20:53)
[2019-07-08] MEDS ORDERED: ALPRAZolam 0.25 MG TAB PO PRN (17:20)
[2019-07-08 18:49] VITALS: BMI 30.6
[2019-07-08] MEDS: CALCIUM ACETATE 667 MG CAP PO SCH (18:51)
[2019-07-08] MEDS: LISINOPRIL 10 MG TAB PO SCH (20:09)
[2019-07-08] MEDS: ATORVASTATIN 80 MG TAB PO SCH (20:09)
[2019-07-08 20:34] LABS: Glucose,Whole Blood 242 mg/dL (75-99)
[2019-07-08] MEDS ORDERED: SODIUM CHLORIDE 0.9% 1,000 ML IV SCH (23:30)
[2019-07-09] MEDS ORDERED: ASPIRIN 325 MG TAB PO ONE (06:00)
[2019-07-09] MEDS: INSULIN ASPART (NovoLOG) 100 UNIT/ML VIAL SQ SCH ×5 (06:11→21:19)
[2019-07-09] MEDS: ASPIRIN 81 MG PO SCH (06:11)
[2019-07-09] MEDS: CALCIUM ACETATE 667 MG CAP PO SCH ×2 (06:11→19:24)
[2019-07-09] MEDS: INSULIN DETEMIR (LEVEMIR) 100 UNIT/ML SYR SQ SCH (06:11)
[2019-07-09] MEDS: CITALOPRAM HYDROBROMIDE 20 MG TAB PO SCH (06:16)
[2019-07-09] MEDS: CYANOCOBALAMIN 500 MCG TAB PO SCH (06:16)
[2019-07-09] MEDS: CHOLECALCIFEROL 1,000 UNIT TAB PO SCH (06:16)
[2019-07-09 06:20] LABS: Glucose,Whole Blood 269 mg/dL (75-99)
[2019-07-09] MEDS: FUROSEMIDE 40 MG TAB PO SCH (06:25)
[2019-07-09 06:37] LABS: Anisocytosis Slight; HCT 32.9 % (34.0-46.0); HGB 10.6 gm/dL (11.4-16.0); Hypochromasia Slight; MCH 30.1 pg (25.0-35.0); MCHC 32.1 g/dL (31.0-37.0); MCV 93.6 fL (80.0-100.0); Mean Platelet Volume 8.8; RBC 3.52 m/uL (3.80-5.40); RDW 16.3 % (11.5-15.5); WBC 8.7 k/uL (3.8-10.6)
[2019-07-09 06:57] LABS: Albumin 3.5 g/dL (3.5-5.0); Calcium 8.9 mg/dL (8.4-10.2); Potassium 4.1 mmol/L (3.5-5.1); Total Bilirubin 0.8 mg/dL (0.2-1.3); Total Protein 7.3 g/dL (6.3-8.2)
[2019-07-09 07:19] LABS: Eosinophils # (M) 0.09 k/uL (0-0.7); Lymphocytes # (M) 0.44 k/uL (1.0-4.8); Monocytes # (M) 0.26 k/uL (0-1.0); Neutrophils % (M) 91 %; Nucleated Red Blood Cells 0 /100 WBC (0-0); Total Cells Counted 100
[2019-07-09] MEDS ORDERED: MIDAZOLAM (PF) 2 MG/2 ML VIAL IVP ONE (10:38)
[2019-07-09] MEDS ORDERED: LIDOCAINE 1% INJ 10MG/ML (20 ML MDV) SQ ONE (10:40)
[2019-07-09] MEDS ORDERED: HEPARIN SODIUM 1,000 UN/ML (10ML VL) IV ONE (10:55)
[2019-07-09] MEDS ORDERED: IV FLUID CONTINUATION 1,000 ML IV ONE (11:08)
[2019-07-09] MEDS ORDERED: NITROGLYCERIN 1000MCG/10ML SYRINGE INTRACORON ONE (11:40)
[2019-07-09] MEDS ORDERED: IOPAMIDOL-300 100ML BTL INJ ONE (11:51)
[2019-07-09] MEDS ORDERED: IOPAMIDOL-250 50ML BTL INTRAARTER ONE ×2 (11:51→11:52)
--- NOTE | 2019-07-09 12:40 | P.OP ---
Date of Procedure: 07/09/19 Description of Procedure: Preoperative diagnosis: Left lower extremity critical limb ischemia with SFA and popliteal artery severe stenosis Postoperative diagnosis: Same Procedure: 1. Left lower extremity superficial femoral artery and popliteal artery directional atherectomy with Hawk one device. 2. Left lower extremity transluminal balloon angioplasty of the superficial femoral artery and popliteal artery with impact drug-eluting balloon 3. Left lower extremity selective femoral, popliteal, tibial artery angiograms. 4. Moderate sedation 82 minutes Surgeon: Erik Meza DO Estimated blood loss: 5 mL Complications: None Condition: Stable Indications: 74-year-old female with history of left lower extremity critical limb ischemia with gangrene of the toes presented originally to the hospital for atherectomy and balloon angioplasty of the SFA and popliteal artery on the left by Dr. Landaverde. He was unable to perform the procedure yesterday and she presents again today for atherectomy and balloon angioplasty to hopefully preserve and prevents above-knee and below-knee amputations. She will need toe amputation and possible transmetatarsal amputation in the future and presents today to increase blood flow to her foot. She did undergo angiogram which demonstrated severe popliteal and SFA disease as well as one-vessel runoff to the ankle. Operative narrative: After written informed consent was obtained the patient all risks benefits and competitions were described the patient was brought to the Supervising Producer and laid in a supine position. The area of the right groin was prepped and draped in usual sterile fashion. Moderate sedation was performed with Versed and fentanyl and patient was monitored with continuous pulse ox and EKG monitoring throughout the entirety of the procedure. Utilizing ultrasound the right common femoral artery was visualized and shown to be patent without significant calcified disease and utilizing Seldinger technique a 5-Haitian sheath was placed in normal fashion. 035 Glidewire was then placed into the aorta followed by an RBI catheter and the left iliac artery was accessed in an up and over fashion. 035 Glidewire was then exchanged for a Glidewire advantage and a 6-Haitian RAABE sheath was then placed in normal fashion just above the femoral artery. Patient was administered heparin and followed with ACTs. Selective angiogram was then obtained of the left lower extremity and there was a focal occlusive disease noted approximate 95% at the SFA and 90% at the popliteal artery. 035 Glidewire followed by a quick cross catheter was then utilized to cross the lesions. Once across the lesion a selective angiogram was then obtained through the quick cross catheter demonstrating good intraluminal access. A 5-Haitian spider filter wire was then placed and the quick cross catheter was removed. A 6-Haitian Hawk one M device was then utilized and atherectomy was performed with multiple passes across the SFA and popliteal artery. Angiogram was then obtained demonstrating much improved intraluminal gain and at that point a 5 x 200 mm impact drug-eluting balloon was then placed and balloon angioplasty was performed. Once completed final angiogram was obtained demonstrating 90+ percent improvement all of intraluminal gain. A ttention was then placed to the below-knee vessels and angiogram was obtained after removal of the filter in the normal fashion. Upon angiogram there was peroneal artery runoff to the ankle with collateralizations filling the ankle. The anterior tibial artery was occluded just after takeoff with no reconstitution as well as the popliteal artery was completely occluded with no reconstitution. 035 wire was placed and complete occlusion was noted at the anterior tibial artery. All guidewires and catheters were then removed patient was administered protamine for reversal of the heparin. Sheath was removed and pressure was placed for hemostasis. Hemostasis was assured and the patient was sent back to her room for recovery.
--- NOTE | 2019-07-09 13:03 | P.NPCON ---
History of Present Illness - Reason for Consult end stage renal disease - History of Present Illness Reason for consultation: End-stage renal disease History of present illness: Patient is a 74-year-old female seen in renal consultation for end-stage renal disease. She is maintained on hemodialysis on a Monday schedule. Patient has history of left lower extremity limb ischemia with arterial stenosis. She underwent angiogram of the left lower extremity with balloon angioplasty of the SFA and popliteal artery. She also underwent atherectomy of the SFA and popliteal artery. She is currently resting in bed. Denies chest pain or shortness of breath. Hemodynamically she stable. Scheduled for hemodialysis today. No cough. No abdominal pain. She is afebrile. Patient states she makes little urine. She is currently maintained on IV fluids with normal saline running at 50 mL an hour which was started last night. Vital signs are stable. General: The patient appeared well nourished and normally developed. HEENT: Head exam is unremarkable. Neck is without jugular venous distension. LUNGS: Lungs are clear to auscultation and percussion. Breath sounds decreased. HEART: Rate and Rhythm are regular. First and second heart sounds normal. No murmurs, rubs or gallops. ABDOMEN: Abdominal exam reveals normal bowel sounds. Non-tender and non- distended. No evidence of peritonitis. EXTREMITITES: No clubbing, cyanosis, or edema. Past Medical History Past Medical History: Coronary Artery Disease (CAD), Chest Pain / Angina, Diabetes Mellitus, Dialysis, Hyperlipidemia, Hypertension, Myocardial Infarction ([place]), Renal Disease, Vascular Disorder Additional Past Medical History / Comment(s): wounds 1rst and 2nd digits left foot,uses walker and w/c-NWB left foot, End-stage renal disease with hemodialysis 3 times a week-. thur, sat.-left arm AV fistula, Non-STEMI 03/14/16, peripheral neuropathy bilateral feet cataracts bilaterally, frequent UTI'S, stress incontinence.lt. finger wound Last Myocardial Infarction Date:: 07/15/2017 History of Any Multi-Drug Resistant Organisms: None Reported Past Surgical History: Appendectomy, Cholecystectomy, Heart Catheterization, Heart Catheterization With Stent, Tonsillectomy Additional Past Surgical History / Comment(s): 03/15/16 PTCA with stent to mid LAD,06-07-16 HEART CATH STENT TO PROX RCA. Restented mid LAD 11/20/16 A/V fistula with revision L upper arm, history of Lasik eye surgery and cataract removal. Past Anesthesia/Blood Transfusion Reactions: No Reported Reaction Date of Last Stent Placement:: 11/21/2016 Past Psychological History: Depression Additional Psychological History / Comment(s): . Smoking Status: Never smoker Past Alcohol Use History: None Reported Additional Past Alcohol Use History / Comment(s): Pt states she started smoking at age 21 (1965) and was a 5 cigarette a day smoker- she only smoked for about 6 months. Past Drug Use History: None Reported - Past Family History Father Family Medical History: Diabetes Mellitus Additional Family Medical History / Comment(s): Father of diabetic complications in his 40's Mother Family Medical History: Cancer, Myocardial Infarction ([place]) Additional Family Medical History / Comment(s): Cancer unknown type. Mother of a [place] in her early 50's Brother(s) Family Medical History: Cancer Additional Family Medical History / Comment(s): Her brother from lung cancer and cirrhosis of the liver. Medications and Allergies Home Medications Medication Instructions Recorded Confirmed Type Folic Acid-Vit B Complex-Vit C 1 cap PO DAILY 06/06/16 07/08/19 History [Nephrocaps] Clopidogrel [Plavix] 75 mg PO DAILY #30 tab 11/22/16 07/03/19 Rx Cholecalciferol [Vitamin D3 (25 1,000 unit PO DAILY tab 07/18/17 07/08/19 Rx Mcg = 1000 Iu)] Cyanocobalamin [Vitamin B-12] 1,000 mcg PO DAILY tab 07/18/17 07/08/19 Rx Aspirin EC [Ecotrin Low Dose] 81 mg PO DAILY 02/15/18 07/08/19 History Atorvastatin [Lipitor] 80 mg PO HS 02/15/18 07/08/19 History Calcium Acetate [PhosLo] 1,334 mg PO AC-BID 02/15/18 07/08/19 History Calcium Carb-Mag Carb-Folic 1 tab PO AC-TID 02/15/18 07/08/19 History [Magnebind 400] Furosemide [Lasix] 40 mg PO DAILY 02/15/18 07/08/19 History Lisinopril [Zestril] 10 mg PO HS 02/15/18 07/08/19 History Citalopram Hydrobromide [CeleXA] 20 mg PO DAILY 05/04/19 07/08/19 History INSULIN ASPART (NovoLOG) [NovoLOG See Protocol SQ TID-W/MEALS 05/04/19 07/08/19 History (formulary)] Insulin Detemir [Levemir Flextouch] 30 units SQ QAM 05/04/19 07/08/19 History Allergies Allergy/AdvReac Type Severity Reaction Status Date / Time glyburide [From Diabeta] Allergy Rash/Hives Verified 07/03/19 14:42 Physical Exam Vitals: Vital Signs Temp Pulse Pulse Resp BP Pulse Ox 07/09/19 12:36 76 14 136/63 93 L 07/09/19 08:00 98.2 F 77 14 151/67 96 07/09/19 04:00 98.1 F 83 17 116/68 95 07/09/19 00:00 98.1 F 82 16 123/70 98 07/08/19 20:00 98.1 F 67 16 143/75 94 L 07/08/19 16:25 85 16 Intake and Output 07/08/19 07/09/19 07/09/19 22:59 06:59 14:59 Intake Total 400 Balance 400 Intake: Intake, IV Titration 400 Amount Sodium Chloride 0.9% 1, 400 000 ml @ 50 mls/hr IV . Q20H JONH Rx#:[id number] Other: # Voids 1 Weight 79.4 kg Results - Lab Results Most recent lab results Calcium 8.9 mg/dL (8.4-10.2) 07/09/19 06:14 07/09/19 06:14 07/09/19 06:14 Assessment and Plan Plan: Assessment: 1. End-stage renal disease maintained on hemodialysis on a Monday schedule via left upper extremity AV fistula. 2. PAD/Left lower extremity ischemia status post atherectomy and balloon angioplasty of the SFA and popliteal artery this morning. 3. Hypertension with chronic kidney disease. Controlled. 4. Insulin-dependent diabetes mellitus. 5. Chronic kidney disease mineral bone disease maintained on PhosLo. Plan: Hep-Lock IV fluids at 5 PM today. Hemodialysis today with goal 2 liters ultrafiltration. Thank you for the consultation. I will continue to follow the patient with you during her hospital stay.
--- NOTE | 2019-07-09 14:46 | IR ---
Fluoroscopy HISTORY: Left foot wound 16.5 minutes fluoroscopy time supplied to the referring clinician. 786 intraoperative C-arm images d ocument the procedure. See dictated report from vascular surgery.
[2019-07-09 16:56] LABS: Glucose,Whole Blood 240 mg/dL (75-99)
[2019-07-09 20:55] LABS: Glucose,Whole Blood 182 mg/dL (75-99)
[2019-07-09] MEDS: ATORVASTATIN 80 MG TAB PO SCH (21:18)
[2019-07-09] MEDS: LISINOPRIL 10 MG TAB PO SCH (21:19)
[2019-07-09 22:58] VITALS: RESP 18
[2019-07-10 06:23] LABS: Glucose,Whole Blood 316 mg/dL (75-99)
[2019-07-10] MEDS: CALCIUM ACETATE 667 MG CAP PO SCH (06:48)
[2019-07-10] MEDS: INSULIN DETEMIR (LEVEMIR) 100 UNIT/ML SYR SQ SCH (06:48)
[2019-07-10] MEDS: INSULIN ASPART (NovoLOG) 100 UNIT/ML VIAL SQ SCH ×2 (06:49→12:01)
[2019-07-10] MEDS ORDERED: CLOPIDOGREL 75 MG TAB PO SCH (09:00)
[2019-07-10] MEDS: ASPIRIN 81 MG PO SCH (09:39)
[2019-07-10] MEDS: CHOLECALCIFEROL 1,000 UNIT TAB PO SCH (09:39)
[2019-07-10] MEDS: CITALOPRAM HYDROBROMIDE 20 MG TAB PO SCH (09:39)
[2019-07-10] MEDS: FUROSEMIDE 40 MG TAB PO SCH (09:39)
[2019-07-10] MEDS: CYANOCOBALAMIN 500 MCG TAB PO SCH (09:39)
[2019-07-10 11:37] VITALS: BP 139/67; PULSE 89; TEMP 98.2
--- NOTE | 2019-07-10 11:41 | P.PN ---
Subjective Patient is seen in follow-up for end-stage renal disease. She is maintained on hemodialysis on Monday schedule. Tolerated hemodialysis well yesterday. No active complaints at this time. Vital signs are stable. General: The patient appeared well nourished and normally developed. HEENT: Head exam is unremarkable. Neck is without jugular venous distension. LUNGS: Lungs are clear to auscultation and percussion. Breath sounds decreased. HEART: Rate and Rhythm are regular. First and second heart sounds normal. No murmurs, rubs or gallops. ABDOMEN: Abdominal exam reveals normal bowel sounds. Non-tender and non- distended. No evidence of peritonitis. EXTREMITITES: No clubbing, cyanosis, or edema. Objective - Vital Signs Vital signs: Vital Signs Temp 98.2 F 07/10/19 11:37 Pulse 89 07/10/19 11:37 Resp 18 07/10/19 11:37 BP 139/67 07/10/19 11:37 Pulse Ox 93 L 07/10/19 11:37 Intake & Output 07/09/19 07/10/19 07/10/19 18:59 06:59 18:59 Intake Total 900 Output Total 2500 Balance 900 -2500 Weight 79 kg Intake: Intake, IV Titration 900 Amount Sodium Chloride 0.9% 1, 900 000 ml @ 50 mls/hr IV . Q20H JONH Rx#:[id number] Output: Hemodialysis 2500 Other: # Voids 1 1 - Labs CBC & Chem 7: 07/09/19 06:14 07/10/19 05:37 Labs: Abnormal Lab Results - Last 24 Hours (Table) 07/09/19 07/09/19 07/10/19 Range/Units 16:51 20:54 05:37 Creatinine 4.95 H (0.52-1.04) mg/dL POC Glucose (mg/dL) 240 H 182 H (75-99) mg/dL 07/10/19 Range/Units 06:22 Creatinine (0.52-1.04) mg/dL POC Glucose (mg/dL) 316 H (75-99) mg/dL Assessment and Plan Plan: Assessment: 1. End-stage renal disease maintained on hemodialysis on a Monday schedule via left upper extremity AV fistula. 2. PAD/Left lower extremity ischemia status post atherectomy and balloon angioplasty of the SFA and popliteal artery on July 09. 3. Hypertension with chronic kidney disease. Controlled. 4. Insulin-dependent diabetes mellitus. 5. Chronic kidney disease mineral bone disease maintained on PhosLo. Plan: Hemodialysis tomorrow. Stable to be discharged home from nephrology standpoint.
[2019-07-10 11:47] LABS: Glucose,Whole Blood 311 mg/dL (75-99)
--- NOTE | 2019-07-10 13:29 | P.DS ---
Providers Date of admission: 07/08/2019 Patient was initially admitted overnight and taken to the special suite for intervention of her superficial femoral artery occlusive disease. She underwent this well without issue. She was seen on post procedure day #1, today, without any issues. Her groins are soft. She had some increase in feeling of her left foot. She had tolerated her dialysis well yesterday without issue and was cleared from a nephrology standpoint for discharge. At this point is no further need for oscillation, she is found to be in satisfactory condition for discharge home. She has family with whom she lives. She is to resume her aspirin and Plavix at home. This is discussed with her and she seemingly understands Attending physician: Faisal Vanegas DO Consults: 07/08/19 16:31 Consult Physician Routine Consulting Provider: Jacy Brooks Consult Reason/Comments: DIALYSIS ON 07/09/19 Do you want consulting provider notified?: Yes Primary care physician: Jasbir Malone Plan - Discharge Summary Discharge Rx Participant: No New Discharge Prescriptions: No Action Folic Acid-Vit B Complex-Vit C [Nephrocaps] 1 cap PO DAILY Clopidogrel [Plavix] 75 mg PO DAILY #30 tab Cholecalciferol [Vitamin D3 (25 Mcg = 1000 Iu)] 1,000 unit PO DAILY tab Cyanocobalamin [Vitamin B-12] 1,000 mcg PO DAILY tab Aspirin EC [Ecotrin Low Dose] 81 mg PO DAILY Atorvastatin [Lipitor] 80 mg PO HS Calcium Acetate [PhosLo] 1,334 mg PO AC-BID Calcium Carb-Mag Carb-Folic [Magnebind 400] 1 tab PO AC-TID Furosemide [Lasix] 40 mg PO DAILY Lisinopril [Zestril] 10 mg PO HS Citalopram Hydrobromide [CeleXA] 20 mg PO DAILY Insulin Detemir [Levemir Flextouch] 30 units SQ QAM INSULIN ASPART (NovoLOG) [NovoLOG (formulary)] See Protocol SQ TID-W/MEALS Discharge Medication List Folic Acid-Vit B Complex-Vit C [Nephrocaps] 1 cap PO DAILY 06/06/16 [History] Clopidogrel [Plavix] 75 mg PO DAILY #30 tab 11/22/16 [Rx] Cholecalciferol [Vitamin D3 (25 Mcg = 1000 Iu)] 1,000 unit PO DAILY tab 07/18/17 [Rx] Cyanocobalamin [Vitamin B-12] 1,000 mcg PO DAILY tab 07/18/17 [Rx] Aspirin EC [Ecotrin Low Dose] 81 mg PO DAILY 02/15/18 [History] Atorvastatin [Lipitor] 80 mg PO HS 02/15/18 [History] Calcium Acetate [PhosLo] 1,334 mg PO AC-BID 02/15/18 [History] Calcium Carb-Mag Carb-Folic [Magnebind 400] 1 tab PO AC-TID 02/15/18 [History] Furosemide [Lasix] 40 mg PO DAILY 02/15/18 [History] Lisinopril [Zestril] 10 mg PO HS 02/15/18 [History] Citalopram Hydrobromide [CeleXA] 20 mg PO DAILY 05/04/19 [History] INSULIN ASPART (NovoLOG) [NovoLOG (formulary)] See Protocol SQ TID-W/MEALS 05/04/19 [History] Insulin Detemir [Levemir Flextouch] 30 units SQ QAM 05/04/19 [History] Follow up Appointment(s)/Referral(s): Faisal Vanegas DO [Doctor of Osteopathic Medicine] - 07/18/19 1:00 pm () Patient Instructions/Handouts: Peripheral Vascular Angioplasty (DC) Activity/Diet/Wound Care/Special Instructions: Continue previous diet and activity as tolerated. Continue previous home medications Discharge Disposition: HOME SELF-CARE
== END 2019-07-10 13:50 | disposition home or self-care (01) ==
LOC: CATHCVL 12:06 → 3SCARD 16:54 → CATHCVL 07-10 13:50
PROVIDERS: ATTEND Surgery
DX: E11.51 Type 2 diabetes mellitus with diabetic peripheral angiopathy without gangrene (principal); I12.0 Hypertensive chronic kidney disease with stage 5 chronic kidney disease or end stage renal disease; E11.22 Type 2 diabetes mellitus with diabetic chronic kidney disease; N18.6 End stage renal disease; Z99.2 Dependence on renal dialysis; E83.89 Other disorders of mineral metabolism
CPT/HCPCS: 37225; 85347; 80053; 80048; 82565; 85025 ×2; C1894 ×2; C1769 ×4; C1887; C1714; C1884; C2623; J2001; J1644; Q9966; Q9967; J2250; 90935

== ENCOUNTER → 2019-07-24 | Outpatient (CLI) | payer MEDICARE, OTHER ==
[2019-07-24 15:56] LABS: Anisocytosis Slight; Basophils # (A) 0.1 k/uL (0-0.2); Basophils % (A) 1 %; Eosinophils # (A) 0.2 k/uL (0-0.7); Eosinophils % (A) 3 %; HCT 32.5 % (34.0-46.0); HGB 10.1 gm/dL (11.4-16.0); Hypochromasia Moderate; Lymphocytes # (A) 1.3 k/uL (1.0-4.8); Lymphocytes % (A) 15 %; MCH 29.1 pg (25.0-35.0); MCHC 30.9 g/dL (31.0-37.0); MCV 94.1 fL (80.0-100.0); Mean Platelet Volume 7.1; Monocytes # (A) 0.5 k/uL (0-1.0); Monocytes % (A) 6 %; Neutrophils # (A) 6.2 k/uL (1.3-7.7); Neutrophils % (A) 74 %; Platelet Count 357 k/uL (150-450); Poikilocytosis Slight; RBC 3.46 m/uL (3.80-5.40); RDW 17.2 % (11.5-15.5); WBC 8.4 k/uL (3.8-10.6)
[2019-07-24 16:00] LABS: Potassium 3.3 mmol/L (3.5-5.1)
== END | disposition home or self-care (01) ==
LOC: LABPAT 14:27
PROVIDERS: ATTEND Surgery
DX: Z01.812 Encounter for preprocedural laboratory examination (principal); I96 Gangrene, not elsewhere classified
CPT/HCPCS: 36415; 80051; 82565; 84520; 85025

== ENCOUNTER 2019-07-29 08:13 | Inpatient (IN) | payer MEDICARE, OTHER ==
[~2019-07-29 08:13] MED LIST changes: +DEXAMETHASONE SOD PHOSPHATE 10 MG/ML 1 ML VIAL IV ONE; +HYDROmorphone 0.5 MG/0.5 ML SYRINGE IVP PRN; +MIDAZOLAM 2 MG/2 ML VIAL IV PRN; +ONDANSETRON 4 MG/2 ML VIAL IVP ONE; -SODIUM CHLORIDE 0.9% 1,000 ML in EMPTY BAG 1 BAG IV ONE
[2019-07-29] MEDS ORDERED: LIDOCAINE 1% 20 ML VIAL (10MG/ML) FOR IV START INTRADERMA ONE (09:13)
[2019-07-29 09:16] LABS: Glucose,Whole Blood 483 mg/dL (75-99)
[2019-07-29] MEDS: LACTATED RINGERS 1,000 ML IV SCH (09:17)
[2019-07-29 09:27] LABS: Potassium 4.3 mmol/L (3.5-5.1)
[2019-07-29] MEDS ORDERED: INSULIN REGULAR 100 UNIT/ML VIAL SQ ONE (10:00)
[2019-07-29 12:10] LABS: Glucose,Whole Blood 441 mg/dL (75-99)
[2019-07-29] MEDS: INSULIN DETEMIR (LEVEMIR) 100 UNIT/ML SYR SQ SCH (12:17)
[2019-07-29 13:02] LABS: Glucose,Whole Blood 353 mg/dL (75-99)
[2019-07-29] MEDS: SODIUM CHLORIDE 0.9% 1,000 ML IV SCH ×2 (13:33→23:25)
[2019-07-29] MEDS: CITALOPRAM HYDROBROMIDE 20 MG TAB PO SCH (13:33)
[2019-07-29] MEDS: CALCIUM CARB-MAG CARB-FOLIC 1 EACH TAB PO SCH ×2 (13:34→17:15)
[2019-07-29] MEDS: FUROSEMIDE 40 MG TAB PO SCH (13:34)
[2019-07-29] MEDS: INSULIN ASPART (NovoLOG) 100 UNIT/ML VIAL SQ SCH ×3 (13:34→20:39)
[2019-07-29 16:56] LABS: Glucose,Whole Blood 229 mg/dL (75-99)
[2019-07-29] MEDS: CALCIUM ACETATE 667 MG CAP PO SCH (17:15)
[2019-07-29] MEDS: LISINOPRIL 10 MG TAB PO SCH (20:39)
[2019-07-29] MEDS: ATORVASTATIN 80 MG TAB PO SCH (20:39)
[2019-07-29 20:43] LABS: Glucose,Whole Blood 229 mg/dL (75-99)
[2019-07-30 02:13] LABS: Glucose,Whole Blood 139 mg/dL (75-99)
[2019-07-30 06:10] LABS: Glucose,Whole Blood 117 mg/dL (75-99)
[2019-07-30] MEDS: INSULIN ASPART (NovoLOG) 100 UNIT/ML VIAL SQ SCH ×4 (06:21→21:19)
[2019-07-30] MEDS: CALCIUM ACETATE 667 MG CAP PO SCH ×2 (06:25→17:23)
[2019-07-30] MEDS: LACTATED RINGERS 1,000 ML IV SCH (06:26)
[2019-07-30] MEDS: CALCIUM CARB-MAG CARB-FOLIC 1 EACH TAB PO SCH ×3 (06:26→17:23)
[2019-07-30] MEDS: INSULIN DETEMIR (LEVEMIR) 100 UNIT/ML SYR SQ SCH (09:39)
[2019-07-30] MEDS: FOLIC ACID-VIT B COMPLEX-VIT C 1 CAP PO SCH (09:39)
[2019-07-30] MEDS: CHOLECALCIFEROL 1,000 UNIT TAB PO SCH (09:39)
[2019-07-30] MEDS: CYANOCOBALAMIN 500 MCG TAB PO SCH (09:39)
[2019-07-30 09:49] LABS: Glucose,Whole Blood 154 mg/dL (75-99)
[2019-07-30 11:45] LABS: Glucose,Whole Blood 131 mg/dL (75-99)
[2019-07-30] MEDS: FUROSEMIDE 40 MG TAB PO SCH (12:05)
[2019-07-30] MEDS: CITALOPRAM HYDROBROMIDE 20 MG TAB PO SCH (12:05)
[2019-07-30 16:44] LABS: Glucose,Whole Blood 83 mg/dL (75-99)
[2019-07-30 16:56] LABS: Anisocytosis Slight; Basophils % (A) 1 %; Eosinophils # (A) 0.1 k/uL (0-0.7); Eosinophils % (A) 1 %; Hypochromasia Slight; Lymphocytes # (A) 0.8 k/uL (1.0-4.8); Lymphocytes % (A) 12 %; MCH 29.3 pg (25.0-35.0); MCHC 31.6 g/dL (31.0-37.0); MCV 92.7 fL (80.0-100.0); Mean Platelet Volume 7.5; Monocytes # (A) 0.2 k/uL (0-1.0); Monocytes % (A) 3 %; Neutrophils # (A) 5.5 k/uL (1.3-7.7); Neutrophils % (A) 83 %; RBC 5.07 m/uL (3.80-5.40); RDW 17.7 % (11.5-15.5); WBC 6.7 k/uL (3.8-10.6)
[2019-07-30 17:05] LABS: HGB 14.9 gm/dL (11.4-16.0); Platelet Count 137 k/uL (150-450)
[2019-07-30 17:19] LABS: Calcium 9.4 mg/dL (8.4-10.2); Potassium 3.9 mmol/L (3.5-5.1)
[2019-07-30] MEDS: ATORVASTATIN 80 MG TAB PO SCH (20:08)
[2019-07-30] MEDS: LISINOPRIL 10 MG TAB PO SCH (20:08)
--- NOTE | 2019-07-30 20:31 | CONS ---
CONSULTATION REASON FOR CONSULT: End-stage renal disease. HISTORY OF PRESENT ILLNESS: Patient is a 74-year-old female with end-stage renal disease, on hemodialysis on a Monday, , Monday schedule. The patient was admitted to the hospital for amputation of her first and second toes on the left foot. She has had peripheral vascular disease with left lower extremity ischemia. She is status post balloon angioplasty of the SFA and popliteal artery previously. Her toes have not healed, and the patient was scheduled for surgery. Yesterday, however, her blood sugar was elevated above 500 and therefore she was admitted to the hospital. She has not had any fever or chills. She was attending the wound clinic. Patient is scheduled for hemodialysis today. PAST MEDICAL HISTORY: 1. Coronary artery disease. 2. Type 2 diabetes. 3. Hypertension. 4. Hyperlipidemia. 5. History of [place]. 6. Peripheral vascular disease. 7. End-stage renal disease. 8. Anemia of chronic disease. 9. CKD mineral bone disorder. PAST SURGICAL HISTORY: 1. Appendectomy. 2. Cholecystectomy. 3. Cardiac catheterization. 4. Tonsillectomy. 5. Coronary stent placement. 6. PTCA stent to LAD. 7. Recent angioplasty of the SFA and popliteal artery. 8. Left arm AV fistula. 9. History of LASIK surgery. 10.Cataract removal. SOCIAL HISTORY: Negative for smoking, drug abuse or alcohol abuse. MEDICATIONS: Medications at home prior to admission included: 1. Vitamin C. 2. Vitamin D3. 3. Plavix. 4. Aspirin. 5. Lipitor. 6. PhosLo. 7. MagnaBind. 8. Lasix. 9. Zestril. 10.Celexa. 11.Insulin. ALLERGIES: ALLERGIES include GLYBURIDE, which causes rash and hives. REVIEW OF SYSTEMS: As per HPI. Other systems negative. PHYSICAL EXAMINATION: Patient is comfortable, awake, alert, oriented x3, not in any acute distress. Blood pressure 139/65, heart rate 63 per minute. She is afebrile. EXAMINATION OF THE HEART: S1 and S2. EXAMINATION OF LUNGS: Bilateral breath sounds are heard. ABDOMEN: Soft, non-tender. Examination of lower extremities shows no significant edema. Left forefoot is currently wrapped. Potassium was 4.3 yesterday. ASSESSMENT: 1. End-stage renal disease, on hemodialysis on a Monday, , Monday schedule. 2. Left lower extremity ischemia and gangrene of first and second toes, for amputation today. 3. Coronary artery disease, status post coronary artery bypass surgery. 4. Chronic kidney disease mineral bone disorder, maintained on MagnaBind and PhosLo. 5. Dyslipidemia. 6. Type 2 diabetes. PLAN: Check labs today. Hemodialysis today. Continue with the phosphate binders. I will check a CBC as well. Thank you for this consultation. Will continue to follow the patient with you during her hospitalization. MMODL / IJN: [id number] /
[2019-07-30 20:44] LABS: Glucose,Whole Blood 67 mg/dL (75-99)
[2019-07-30 21:01] LABS: Glucose,Whole Blood 82 mg/dL (75-99)
--- NOTE | 2019-07-30 23:14 | P.HPIM ---
History of Present Illness H&P Date: 07/30/19 This is a pleasant 74-year-old white female who was directly admitted from the OR yesterday where she was undergoing a left toe amputation secondary to gangrene and osteomyelitis of the left great toe and second toe. She subsequently discontinued her insulin a few days prior to the surgery during s day and was found to have her blood sugars exceeding 500 she was admitted for further care. I placed her on diabetic insulin sliding scale her regular home medications with with some hydration and her sugars this morning were 117 and much improvement. However I did see that she had a morning meal served so I'm thinking that surgery will be postponed until tomorrow. She currently has no complaints and is feeling well. Review of Systems GENERAL: Patient denies fever. Denies chills. EYES: Denies blurred vision. Denies vision changes. Denies eye pain. Diabetic retinopathy EARS, NOSE, MOUTH, & THROAT: Denies headache. Denies sore throat. Denies ear pain. RESPIRATORY: Denies cough. Denies shortness of breath. Denies sputum production. Denies hemoptysis. CARDIOVASCULAR: Denies chest pain or pressure. Denies palpitations. Denies arrhythmias. GASTROINTESTINAL: Denies abdominal pain. Denies diarrhea. Denies constipation. Denies nausea. Denies vomiting. Denies heartburn. Denies blood in the stool. GENITOURINARY: Denies urinary frequency. Denies burning. Denies dysuria. Denies cloudy urine. Denies blood in the urine. Renal dialysis dependent for chronic kidney disease end-stage. MUSCULOSKELETAL: Left lower extremity and heavy gauze bandage with gangrene toes first and second. INTEGUMENTARY: Denies pruitis. Denies rash. PSYCHIATRIC: Denies suicidal or homicial ideations. ENDOCRINE: Diabetes type 2 with neuropathy. HEMATOLOGIC: Denies bleeding disorders. Past Medical History Past Medical History: Coronary Artery Disease (CAD), Chest Pain / Angina, Diabetes Mellitus, Dialysis, Hyperlipidemia, Hypertension, Myocardial Infarction ([place]), Renal Disease Additional Past Medical History / Comment(s): End-stage renal disease with hemodialysis 3 times a week usually has on . , sat.-left arm AV fistula, Non-STEMI 03/14/16, peripheral neuropathy bilateral feet cataracts bilaterally, frequent UTI'S, stress incontinence.lt. finger wound Last Myocardial Infarction Date:: 07/15/2017 History of Any Multi-Drug Resistant Organisms: None Reported Past Surgical History: Appendectomy, Cholecystectomy, Heart Catheterization, Heart Catheterization With Stent, Tonsillectomy Additional Past Surgical History / Comment(s): 03/15/16 PTCA with stent to mid LAD,06-07-16 HEART CATH STENT TO PROX RCA. Restented mid LAD 11/20/16 A/V fistula with revision L upper arm, history of Lasix eye surgery and cataract removal. Past Anesthesia/Blood Transfusion Reactions: No Reported Reaction Date of Last Stent Placement:: 11/21/2016 Past Psychological History: Depression Additional Psychological History / Comment(s): . Smoking Status: Never smoker Past Alcohol Use History: None Reported Additional Past Alcohol Use History / Comment(s): Pt states she started smoking at age 21 (1965) and was a 5 cigarette a day smoker- she only smoked for about 6 months. Past Drug Use History: None Reported - Past Family History Father Family Medical History: Diabetes Mellitus Additional Family Medical History / Comment(s): Father of diabetic complications in his 40's Mother Family Medical History: Cancer, Myocardial Infarction ([place]) Additional Family Medical History / Comment(s): Cancer unknown type. Mother of a [place] in her early 50's Brother(s) Family Medical History: Cancer Additional Family Medical History / Comment(s): Her brother from lung cancer and cirrhosis of the liver. Medications and Allergies Home Medications Medication Instructions Recorded Confirmed Type Folic Acid-Vit B Complex-Vit C 1 cap PO DAILY 06/06/16 07/29/19 History [Nephrocaps] Clopidogrel [Plavix] 75 mg PO DAILY #30 tab 11/22/16 07/29/19 Rx Cholecalciferol [Vitamin D3 (25 1,000 unit PO DAILY tab 07/18/17 07/29/19 Rx Mcg = 1000 Iu)] Cyanocobalamin [Vitamin B-12] 1,000 mcg PO DAILY tab 07/18/17 07/29/19 Rx Aspirin EC [Ecotrin Low Dose] 81 mg PO DAILY 02/15/18 07/29/19 History Atorvastatin [Lipitor] 80 mg PO HS 02/15/18 07/29/19 History Calcium Acetate [PhosLo] 1,334 mg PO AC-BID 02/15/18 07/29/19 History Calcium Carb-Mag Carb-Folic 1 tab PO AC-TID 02/15/18 07/29/19 History [Magnebind 400] Furosemide [Lasix] 40 mg PO DAILY 02/15/18 07/29/19 History Lisinopril [Zestril] 10 mg PO HS 02/15/18 07/29/19 History Citalopram Hydrobromide [CeleXA] 20 mg PO DAILY 05/04/19 07/29/19 History INSULIN ASPART (NovoLOG) [NovoLOG See Protocol SQ TID-W/MEALS 05/04/19 07/29/19 History (formulary)] Insulin Detemir [Levemir Flextouch] 30 units SQ QAM 05/04/19 07/29/19 History Allergies Allergy/AdvReac Type Severity Reaction Status Date / Time glyburide [From Diabeta] Allergy Rash/Hives Verified 07/29/19 11:00 Physical Exam Osteopathic Statement: significant issues noted on an osteopathic structural exam other than those noted in the History and Physical/Consult. Including kyphoscoliosis. And left lower extremity gangrene first and second toe Vitals: Vital Signs Temp Pulse Resp BP Pulse Ox 07/30/19 20:00 97.9 F 65 18 128/60 95 07/30/19 16:37 72 18 149/60 07/30/19 12:35 98.2 F 75 18 174/77 94 L 07/30/19 12:00 97.2 F L 72 18 136/64 93 L 07/30/19 08:35 97.0 F L 63 16 139/65 95 07/30/19 08:30 98 F 62 18 121/58 93 L 07/30/19 04:00 97.6 F 57 L 16 114/56 95 07/30/19 00:00 55 L 16 07/29/19 23:26 97.6 F 55 L 16 118/56 94 L Intake and Output 07/30/19 07/30/19 07/31/19 14:59 22:59 06:59 Intake Total 660 720 Balance 660 720 Intake: Oral 660 720 Other: # Voids 0 # Bowel Movements 1 GENERAL: This is a -74 year-old in no apparent distress at the time of examination. Pleasant and cooperative. HEENT: Head is atraumatic, normocephalic. Pupils are equal, round, and reactive to light. Sclerae anicteric. Conjunctivae are clear. Mucus membranes of the mouth are moist. Neck is supple. RESPIRATORY: Clear to auscultation. No wheezes, rales, or rhonchi. No use of accessory muscles. CARDIOVASCULAR: Regular rate and rhythm. S1 and S2 noted. No systolic or diastolic murmur auscultated. No JVD noted. No S3 or S4 noted. GASTROINTESTINAL: No distention noted. Abdomen soft and round. Normal active bowel sounds auscultated x 4 quadrants. No pain or tenderness noted upon palpation. INTEGUMENTARY: No cyanosis. No jaundice. No rashes noted. No cellulitis noted. EXTREMITIES: 2+ peripheral pulses. No evidence of peripheral edema. No calf tenderness noted. NEUROLOGIC: Cranial nerves II-XII intact. PSYCHIATRIC: Awake, alert, and oriented X 3. Appropriate affect. Intact judgement and insight. Results CBC & Chem 7: 07/30/19 16:00 07/30/19 16:00 Labs: Abnormal Lab Results - Last 24 Hours (Table) 07/30/19 07/30/19 07/30/19 Range/Units 02:11 06:09 09:37 Hct (34.0-46.0) % RDW (11.5-15.5) % Plt Count (150-450) k/uL Lymphocytes # (1.0-4.8) k/uL Sodium (137-145) mmol/L BUN (7-17) mg/dL Creatinine (0.52-1.04) mg/dL POC Glucose (mg/dL) 139 H 117 H 154 H (75-99) mg/dL 07/30/19 07/30/19 07/30/19 Range/Units 11:34 16:00 16:00 Hct 47.0 H (34.0-46.0) % RDW 17.7 H (11.5-15.5) % Plt Count 137 L D (150-450) k/uL Lymphocytes # 0.8 L (1.0-4.8) k/uL Sodium 135 L (137-145) mmol/L BUN 55 H (7-17) mg/dL Creatinine 6.15 H (0.52-1.04) mg/dL POC Glucose (mg/dL) 131 H (75-99) mg/dL 07/30/19 Range/Units 20:42 Hct (34.0-46.0) % RDW (11.5-15.5) % Plt Count (150-450) k/uL Lymphocytes # (1.0-4.8) k/uL Sodium (137-145) mmol/L BUN (7-17) mg/dL Creatinine (0.52-1.04) mg/dL POC Glucose (mg/dL) 67 L (75-99) mg/dL Thrombosis Risk Factor Assmnt - Choose All That Apply Each Factor Represents 1 point: Minor surgery planned Each Risk Factor Represents 2 Points: Age 61-74 years Thrombosis Risk Factor Assessment Total Risk Factor Score: 3 Thrombosis Risk Factor Assessment Level: Moderate Risk Assessment and Plan (1) 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 Current Visit: Yes Status: Acute Code(s): I70.362 - ATHSCL UNSP TYPE BYPASS OF THE EXTRM W GANGRENE, LEFT LEG SNOMED Code(s): 02947843031969840 (2) Insulin-requiring or dependent type II diabetes mellitus Current Visit: Yes Status: Acute Code(s): E11.9 - TYPE 2 DIABETES MELLITUS WITHOUT COMPLICATIONS; Z79.4 - JAIL (CURRENT) USE OF INSULIN SNOMED Code(s): 085636687 (3) Hyperglycemic crisis in diabetes mellitus Current Visit: Yes Status: Acute Code(s): E11.65 - TYPE 2 DIABETES MELLITUS WITH HYPERGLYCEMIA SNOMED Code(s): 593657116 (4) Acute on chronic renal failure Current Visit: No Status: Acute Code(s): N17.9 - ACUTE KIDNEY FAILURE, UNSPECIFIED; N18.9 - CHRONIC KIDNEY DISEASE, UNSPECIFIED SNOMED Code(s): 277222375 (5) Anemia of chronic disease Current Visit: No Status: Acute Code(s): D63.8 - ANEMIA IN OTHER CHRONIC DISEASES CLASSIFIED ELSEWHERE SNOMED Code(s): 339237076 (6) Atherosclerosis of [place] arteries of left leg with ulceration of other part of foot Current Visit: No Status: Acute Code(s): I70.245 - ATHSCL [place] ARTERIES OF LEFT LEG W ULCERATION OTH PRT FOOT SNOMED Code(s): 418009654090829 (7) Chronic kidney disease with end stage renal disease on dialysis due to type 2 diabetes mellitus Current Visit: Yes Status: Acute Code(s): E11.22 - TYPE 2 DIABETES MELLITUS W DIABETIC CHRONIC KIDNEY DISEASE; N18.6 - END STAGE RENAL DISEASE; Z99.2 - DEPENDENCE ON RENAL DIALYSIS SNOMED Code(s): 354004363774 Plan: Patient will be admitted and placed on IV hydration insulin regimen and observation with hopes of clearing for surgery today. Patient's sugars are dramatically improved within 12 hours and is okay to proceed with vascular amputation procedure.
[2019-07-31 02:42] LABS: Glucose,Whole Blood 34 mg/dL (75-99)
[2019-07-31 02:43] LABS: Glucose,Whole Blood 38 mg/dL (75-99)
[2019-07-31] MEDS ORDERED: DEXTROSE 10 % IN WATER 250 ML IV ONE (02:50)
[2019-07-31 03:27] LABS: Glucose,Whole Blood 110 mg/dL (75-99)
[2019-07-31 04:15] LABS: Glucose,Whole Blood 79 mg/dL (75-99)
[2019-07-31 04:16] LABS: Glucose,Whole Blood 75 mg/dL (75-99)
[2019-07-31 06:13] LABS: Glucose,Whole Blood 49 mg/dL (75-99)
[2019-07-31 06:14] LABS: Glucose,Whole Blood 59 mg/dL (75-99)
[2019-07-31] MEDS: INSULIN ASPART (NovoLOG) 100 UNIT/ML VIAL SQ SCH ×4 (06:20→20:41)
[2019-07-31] MEDS: CALCIUM CARB-MAG CARB-FOLIC 1 EACH TAB PO SCH ×2 (06:24→19:38)
[2019-07-31] MEDS: LACTATED RINGERS 1,000 ML IV SCH (06:24)
[2019-07-31 06:29] LABS: Glucose,Whole Blood 47 mg/dL (75-99)
[2019-07-31 06:30] LABS: Glucose,Whole Blood 50 mg/dL (75-99)
[2019-07-31 06:49] LABS: Glucose,Whole Blood 75 mg/dL (75-99)
[2019-07-31] MEDS: CALCIUM ACETATE 667 MG CAP PO SCH ×2 (08:56→19:39)
[2019-07-31] MEDS: INSULIN DETEMIR (LEVEMIR) 100 UNIT/ML SYR SQ SCH (08:57)
[2019-07-31] MEDS: DEXTROSE 5% IN WATER 1,000 ML IV SCH (09:24)
[2019-07-31] MEDS: CHOLECALCIFEROL 1,000 UNIT TAB PO SCH (09:25)
[2019-07-31] MEDS: CYANOCOBALAMIN 500 MCG TAB PO SCH (09:25)
[2019-07-31] MEDS: FOLIC ACID-VIT B COMPLEX-VIT C 1 CAP PO SCH (09:25)
[2019-07-31 11:58] LABS: Glucose,Whole Blood 116 mg/dL (75-99)
--- NOTE | 2019-07-31 13:21 | P.PN ---
Subjective Progress Note Date: 07/31/19 Patient is a 74-year-old female who was initially supposed to undergo a first and second toe amputation for gangrene. Upon evaluation in the preoperative. She was found to have hyperglycemia and was directly admitted to the hospital. Over the past 24 hours her hyperglycemia has been improved and is now stable. We plan to take her to the operating room today for amputation of her first and second toes. She seemingly understands and is in agreement. Objective - Vital Signs Vital signs: Vital Signs Temp 97.8 F 07/31/19 11:48 Pulse 67 07/31/19 11:48 Resp 18 07/31/19 11:48 BP 124/59 07/31/19 11:48 Pulse Ox 96 07/31/19 11:48 Intake & Output 07/30/19 07/31/19 07/31/19 18:59 06:59 18:59 Intake Total 900 480 Output Total 3000 Balance 900 -2520 Weight 74.5 kg Intake: Oral 900 480 Output: Urine 0 Hemodialysis 3000 Other: # Voids 0 # Bowel Movements 1 - Labs CBC & Chem 7: 07/30/19 16:00 07/31/19 04:11 Labs: Abnormal Lab Results - Last 24 Hours (Table) 07/30/19 07/30/19 07/30/19 Range/Units 16:00 16:00 20:42 Hct 47.0 H (34.0-46.0) % RDW 17.7 H (11.5-15.5) % Plt Count 137 L D (150-450) k/uL Lymphocytes # 0.8 L (1.0-4.8) k/uL Sodium 135 L (137-145) mmol/L BUN 55 H (7-17) mg/dL Creatinine 6.15 H (0.52-1.04) mg/dL POC Glucose (mg/dL) 67 L (75-99) mg/dL 07/31/19 07/31/19 07/31/19 Range/Units 02:40 02:41 03:25 Hct (34.0-46.0) % RDW (11.5-15.5) % Plt Count (150-450) k/uL Lymphocytes # (1.0-4.8) k/uL Sodium (137-145) mmol/L BUN (7-17) mg/dL Creatinine (0.52-1.04) mg/dL POC Glucose (mg/dL) 34 L 38 L 110 H (75-99) mg/dL 07/31/19 07/31/19 07/31/19 Range/Units 06:10 06:12 06:28 Hct (34.0-46.0) % RDW (11.5-15.5) % Plt Count (150-450) k/uL Lymphocytes # (1.0-4.8) k/uL Sodium (137-145) mmol/L BUN (7-17) mg/dL Creatinine (0.52-1.04) mg/dL POC Glucose (mg/dL) 49 L 59 L 47 L (75-99) mg/dL 07/31/19 07/31/19 Range/Units 06:29 11:37 Hct (34.0-46.0) % RDW (11.5-15.5) % Plt Count (150-450) k/uL Lymphocytes # (1.0-4.8) k/uL Sodium (137-145) mmol/L BUN (7-17) mg/dL Creatinine (0.52-1.04) mg/dL POC Glucose (mg/dL) 50 L 116 H (75-99) mg/dL
[2019-07-31 13:58] LABS: Glucose,Whole Blood 125 mg/dL (75-99)
[2019-07-31] MEDS ORDERED: IV FLUID CONTINUATION 1,000 ML IV ONE (13:58)
[2019-07-31] MEDS ORDERED: GLYCOPYRROLATE 0.2 MG/ML 2 ML VIAL ONE (15:24)
[2019-07-31] MEDS ORDERED: SODIUM CHLORIDE 0.9% 500 ML 500 ML IV ONE (15:24)
[2019-07-31] MEDS ORDERED: MIDAZOLAM 2 MG/2 ML VIAL ONE (15:24)
[2019-07-31] MEDS ORDERED: fentaNYL (PF) 50 MCG/ML 2 ML AMP ONE (15:24)
[2019-07-31] MEDS ORDERED: SODIUM CHLORIDE 0.9% 100 ML with ceFAZolin 2,000 MG IV ONE ×2 (15:24)
[2019-07-31] MEDS ORDERED: PROPOFOL 10 MG/ML 20 ML VIAL IV ONE (15:24)
[2019-07-31] MEDS ORDERED: LIDOCAINE 1% INJ 10MG/ML (20 ML MDV) SQ ONE ×2 (15:47)
--- NOTE | 2019-07-31 16:43 | PN ---
PROGRESS NOTE Patient is seen for followup for end-stage renal disease. She is scheduled for surgery for amputation of first and second toes on the left foot today. The patient was dialyzed yesterday. She is feeling fairly well this morning. On examination, blood pressure 129/63, heart rate 79 per minute. Patient is afebrile. EXAMINATION OF THE HEART: S1 and S2. EXAMINATION OF LUNGS: Bilateral breath sounds are heard. ABDOMEN: Soft, non-tender. Examination of lower extremities shows no significant edema. 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 Left foot is currently wrapped. Labs are not available from today. Yesterday's potassium was 3.9; hemoglobin was 14.9 g/dL. ASSESSMENT: 1. End-stage renal disease, on hemodialysis on a Monday, , Monday schedule. 2. Peripheral vascular disease. 3. Gangrene of the first and second toes on the left foot. 4. Chronic kidney disease mineral bone disorder. 5. Hypertension. PLAN: Hemodialysis in a.m. MMODL / RAJESHN: [id number] /
[2019-07-31 17:01] LABS: Glucose,Whole Blood 119 mg/dL (75-99)
--- NOTE | 2019-07-31 17:01 | P.OP ---
Date of Procedure: 07/31/19 Description of Procedure: Preop dx dry gangrene L 1st and second toe Post op dx same, fracture L second toe, likely osteo, small abscess Procedure Ray amputation L 1st and second toes with digital block Surgeon Rabia JHA [id number] Specimen L first and second toe, culture Pt is a 74 y/o female who has severe PAD and now with gangrene of her 1st and second toes. She has undergone revascularization and has one vessel runoff. At this time she presents for amputation of the 1st and second toes. Risks and benefits were discussed. The patient seemingly understands and is willing to proceed. Procedure in detail This patient was brought to the operating room and IV sedation. The operative foot was prepped and draped in sterile manner. A digital block was performed with 1% lidociane. An incision was made at the base of the first and second toes deepened to skin and fascia on plantar and dorsal aspect until we reached the head of the metatarsal bone. This will also continue down to the plantar portion of the foot to encompass the plantar gangrene. The head of the metatarsal was from the toe. The tendons were divided in plantar and dorsal aspects. The first and second toes was removed. The sesamoid bone was removed. The periosteal tissues were elevated on the first and second metatarsals and utilizing a bone cutters, the first and second metatarsal heads were removed. A Ronger and rasp were utilized to smooth the remaining bone. There were minimal bleeding points which were electrocoagulated. The area was then copiously irrigated. Cultures had been sent. The deep tissues were reaproximated with 3-0 Vicryl. Th medial portion of the skin was reapproximated with 2-0 nylon. A small wound VAC was utilized and in place with good seal at the final portion of open wound. A dressing was placed. The patient was taken back to the PACU in stable condition. The patient tolerated the procedure well.
--- NOTE | 2019-07-31 17:10 | P.PN ---
Subjective Progress Note Date: 07/31/19 This is a pleasant 74-year-old white female who was directly admitted from the OR yesterday where she was undergoing a left toe amputation secondary to gangrene and osteomyelitis of the left great toe and second toe. She subsequently discontinued her insulin a few days prior to the surgery during surgical day and was found to have her blood sugars exceeding 500 she was admitted for further care. I placed her on diabetic insulin sliding scale her regular home medications with with some hydration and her sugars this morning were 117 and much improvement. However I did see that she had a morning meal served so I'm thinking that surgery will be postponed until tomorrow. She currently has no complaints and is feeling well. 07/31/2019 hypoglycemic, received D50, currently nothing by mouth for surgery. Scheduled for amputation of first and second toes of the left foot today with vascular surgery. Denies chest pain, palpitations or shortness of breath. Vital signs stable. Afebrile. Objective - Vital Signs Vital signs: Vital Signs Temp 97.6 F 07/31/19 16:30 Pulse 67 07/31/19 16:45 Resp 18 07/31/19 16:45 BP 112/54 07/31/19 16:45 Pulse Ox 100 07/31/19 16:45 Intake & Output 07/30/19 07/31/19 07/31/19 18:59 06:59 18:59 Intake Total 900 480 330 Output Total 3000 10 Balance 900 -2520 320 Weight 74.5 kg Intake: IV 150 Intake, IV Titration 180 Amount Dextrose 5% in Water 1, 180 000 ml @ 60 mls/hr IV . [id number] [facility] Rx#:[id number] Oral 900 480 Output: Urine 0 Hemodialysis 3000 Estimated Blood Loss 10 Other: # Voids 0 # Bowel Movements 1 - Exam GENERAL: Sitting up in bed, no apparent distress at the time of examination. Pleasant and cooperative. HEENT: Head is atraumatic, normocephalic. Pupils are equal, round, and reactive to light. Sclerae anicteric. Conjunctivae are clear. Mucus membranes of the mouth are moist. Neck is supple. RESPIRATORY: Clear to auscultation. No wheezes, rales, or rhonchi. No use of accessory muscles. CARDIOVASCULAR: Regular rate and rhythm. S1 and S2 noted. No systolic or diastolic murmur auscultated. No JVD noted. No S3 or S4 noted. GASTROINTESTINAL: No distention noted. Abdomen soft and round. Normal active bowel sounds auscultated x 4 quadrants. No pain or tenderness noted upon palpation. INTEGUMENTARY: No cyanosis. No jaundice. No rashes noted. No cellulitis noted. EXTREMITIES: 2+ peripheral pulses. No evidence of peripheral edema. No calf tenderness noted. NEUROLOGIC: Cranial nerves II-XII intact. PSYCHIATRIC: Awake, alert, and oriented X 3. Appropriate affect. Intact judgement and insight. - Labs CBC & Chem 7: 07/30/19 16:00 07/31/19 04:11 Labs: Abnormal Lab Results - Last 24 Hours (Table) 07/30/19 07/30/19 07/30/19 Range/Units 16:00 16:00 20:42 Hct 47.0 H (34.0-46.0) % RDW 17.7 H (11.5-15.5) % Plt Count 137 L D (150-450) k/uL Lymphocytes # 0.8 L (1.0-4.8) k/uL Sodium 135 L (137-145) mmol/L BUN 55 H (7-17) mg/dL Creatinine 6.15 H (0.52-1.04) mg/dL POC Glucose (mg/dL) 67 L (75-99) mg/dL 07/31/19 07/31/19 07/31/19 Range/Units 02:40 02:41 03:25 Hct (34.0-46.0) % RDW (11.5-15.5) % Plt Count (150-450) k/uL Lymphocytes # (1.0-4.8) k/uL Sodium (137-145) mmol/L BUN (7-17) mg/dL Creatinine (0.52-1.04) mg/dL POC Glucose (mg/dL) 34 L 38 L 110 H (75-99) mg/dL 07/31/19 07/31/19 07/31/19 Range/Units 06:10 06:12 06:28 Hct (34.0-46.0) % RDW (11.5-15.5) % Plt Count (150-450) k/uL Lymphocytes # (1.0-4.8) k/uL Sodium (137-145) mmol/L BUN (7-17) mg/dL Creatinine (0.52-1.04) mg/dL POC Glucose (mg/dL) 49 L 59 L 47 L (75-99) mg/dL 07/31/19 07/31/19 07/31/19 Range/Units 06:29 11:37 13:57 Hct (34.0-46.0) % RDW (11.5-15.5) % Plt Count (150-450) k/uL Lymphocytes # (1.0-4.8) k/uL Sodium (137-145) mmol/L BUN (7-17) mg/dL Creatinine (0.52-1.04) mg/dL POC Glucose (mg/dL) 50 L 116 H 125 H (75-99) mg/dL 07/31/19 Range/Units 16:48 Hct (34.0-46.0) % RDW (11.5-15.5) % Plt Count (150-450) k/uL Lymphocytes # (1.0-4.8) k/uL Sodium (137-145) mmol/L BUN (7-17) mg/dL Creatinine (0.52-1.04) mg/dL POC Glucose (mg/dL) 119 H (75-99) mg/dL Assessment and Plan Assessment: (1) 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 Current Visit: Yes Status: Acute Code(s): I70.362 - ATHSCL UNSP TYPE BYPASS OF THE EXTRM W GANGRENE, LEFT LEG SNOMED Code(s): 93714152471854783 (2) Insulin-requiring or dependent type II diabetes mellitus Current Visit: Yes Status: Acute Code(s): E11.9 - TYPE 2 DIABETES MELLITUS WITHOUT COMPLICATIONS; Z79.4 - [facility] (CURRENT) USE OF INSULIN SNOMED Code(s): 791667714 (3) Hyperglycemic crisis in diabetes mellitus Current Visit: Yes Status: Acute Code(s): E11.65 - TYPE 2 DIABETES MELLITUS WITH HYPERGLYCEMIA SNOMED Code(s): 009296102 (4) Acute on chronic renal failure Current Visit: No Status: Acute Code(s): N17.9 - ACUTE KIDNEY FAILURE, UNSPECIFIED; N18.9 - CHRONIC KIDNEY DISEASE, UNSPECIFIED SNOMED Code(s): 141698663 (5) Anemia of chronic disease Current Visit: No Status: Acute Code(s): D63.8 - ANEMIA IN OTHER CHRONIC DISEASES CLASSIFIED ELSEWHERE SNOMED Code(s): 229367496 (6) Atherosclerosis of [place] arteries of left leg with ulceration of other part of foot Current Visit: No Status: Acute Code(s): I70.245 - ATHSCL [place] ARTERIES OF LEFT LEG W ULCERATION OTH PRT FOOT SNOMED Code(s): 972059872203560 (7) Chronic kidney disease with end stage renal disease on dialysis due to type 2 diabetes mellitus Current Visit: Yes Status: Acute Code(s): E11.22 - TYPE 2 DIABETES MELLITUS W DIABETIC CHRONIC KIDNEY DISEASE; N18.6 - END STAGE RENAL DISEASE; Z99.2 - DEPENDENCE ON RENAL DIALYSIS SNOMED Code(s): 582025845425 Plan: Continue on current medication regime ,monitoring and symptomatic treatment. Hyperglycemic, D5 W initiated while patient nothing by mouth for surgery.awaiting OR-amputation of first and second toes of the left foot with vascular surgery today. Close monitoring of Accu-Cheks. Hemodialysis tomorrow as per nephrology. The impression and plan of care has been dictated as directed. : I performed a history and examination of this patient, discussed the same with the dictator. I agree with the dictator's note ,documented as a scribe. Any additional findings or plans will be noted.
[2019-07-31] MEDS: FUROSEMIDE 40 MG TAB PO SCH (19:38)
[2019-07-31] MEDS: CITALOPRAM HYDROBROMIDE 20 MG TAB PO SCH (19:38)
[2019-07-31] MEDS: LISINOPRIL 10 MG TAB PO SCH (20:35)
[2019-07-31] MEDS: ATORVASTATIN 80 MG TAB PO SCH (20:35)
[2019-07-31 20:58] LABS: Glucose,Whole Blood 140 mg/dL (75-99)
[2019-07-31 21:46] LABS: Glucose,Whole Blood 137 mg/dL (75-99)
[2019-08-01] MEDS: HYDROmorphone 1 MG/ML 1 ML SYRINGE IVP PRN ×4 (00:02→21:22)
[2019-08-01] MEDS: DEXTROSE 5% IN WATER 1,000 ML IV SCH ×2 (01:32→18:39)
[2019-08-01 02:15] LABS: Glucose,Whole Blood 140 mg/dL (75-99)
[2019-08-01] MEDS: LACTATED RINGERS 1,000 ML IV SCH (06:03)
[2019-08-01 07:22] LABS: Glucose,Whole Blood 139 mg/dL (75-99)
[2019-08-01] MEDS: CALCIUM CARB-MAG CARB-FOLIC 1 EACH TAB PO SCH ×3 (07:39→18:36)
[2019-08-01] MEDS: CALCIUM ACETATE 667 MG CAP PO SCH ×2 (07:39→18:36)
[2019-08-01] MEDS: INSULIN ASPART (NovoLOG) 100 UNIT/ML VIAL SQ SCH ×4 (07:39→21:13)
[2019-08-01] MEDS: INSULIN DETEMIR (LEVEMIR) 100 UNIT/ML SYR SQ SCH (09:04)
[2019-08-01] MEDS: CYANOCOBALAMIN 500 MCG TAB PO SCH (09:09)
[2019-08-01] MEDS: FOLIC ACID-VIT B COMPLEX-VIT C 1 CAP PO SCH (09:09)
[2019-08-01 11:59] LABS: Glucose,Whole Blood 117 mg/dL (75-99)
--- NOTE | 2019-08-01 13:20 | P.PN ---
Subjective Progress Note Date: 08/01/19 Principal diagnosis: Status post amputation left first and second toes. The patient is currently undergoing dialysis and did receive some Dilaudid intravenously and the patient is now sleeping comfortably. Vital signs are stable and the patient is afebrile. Dressings are left intact. Plan is for application of wound VAC and once this is arranged transfer to home for continued home care. We will start her on oral analgesics to help with transition to home care. Documentation signed for obtaining wound VAC materials/system Objective - Vital Signs Vital signs: Vital Signs Temp 97.8 F 08/01/19 12:08 Pulse 68 08/01/19 12:08 Resp 16 08/01/19 12:08 BP 103/52 08/01/19 12:08 Pulse Ox 95 08/01/19 12:08 Intake & Output 07/31/19 08/01/19 08/01/19 18:59 06:59 18:59 Intake Total 380 450 180 Output Total 10 Balance 370 450 180 Weight 74 kg Intake: IV 200 Intake, IV Titration 180 Amount Dextrose 5% in Water 1, 180 000 ml @ 60 mls/hr IV . [id number] [facility] Rx#:[id number] Oral 450 180 Output: Estimated Blood Loss 10 Other: Voiding Method Toilet # Voids 0 0 - Labs CBC & Chem 7: 07/30/19 16:00 07/31/19 04:11 Labs: Abnormal Lab Results - Last 24 Hours (Table) 07/31/19 07/31/19 07/31/19 Range/Units 13:57 16:48 20:38 POC Glucose (mg/dL) 125 H 119 H 140 H (75-99) mg/dL 07/31/19 08/01/19 08/01/19 Range/Units 21:44 01:50 07:20 POC Glucose (mg/dL) 137 H 140 H 139 H (75-99) mg/dL 08/01/19 Range/Units 11:57 POC Glucose (mg/dL) 117 H (75-99) mg/dL Microbiology - Last 24 Hours (Table) 07/31/19 16:15 Gram Stain - Preliminary Toe - Left First Wound Culture - Preliminary 07/31/19 16:15 Anaerobic Culture - Preliminary Toe - Left First
[2019-08-01 16:53] LABS: Glucose,Whole Blood 62 mg/dL (75-99)
[2019-08-01 17:09] LABS: Glucose,Whole Blood 47 mg/dL (75-99)
[2019-08-01 17:12] LABS: Glucose,Whole Blood 52 mg/dL (75-99)
--- NOTE | 2019-08-01 17:16 | P.PN ---
Subjective Progress Note Date: 08/01/19 This is a pleasant 74-year-old white female who was directly admitted from the OR yesterday where she was undergoing a left toe amputation secondary to gangrene and osteomyelitis of the left great toe and second toe. She subsequently discontinued her insulin a few days prior to the surgery during surgical day and was found to have her blood sugars exceeding 500 she was admitted for further care. I placed her on diabetic insulin sliding scale her regular home medications with with some hydration and her sugars this morning were 117 and much improvement. However I did see that she had a morning meal served so I'm thinking that surgery will be postponed until tomorrow. She currently has no complaints and is feeling well. 07/31/2019 hypoglycemic, received D50, currently nothing by mouth for surgery. Scheduled for amputation of first and second toes of the left foot today with vascular surgery. Denies chest pain, palpitations or shortness of breath. Vital signs stable. Afebrile. 08/01/2019 under amputation of left first and second toes yesterday, tolerated procedure well. Wound VAC present. Increased pain during the night but currently controlled. Scheduled for dialysis today. Vital signs stable. Consumed 50% of breakfast with no nausea vomiting or diarrhea. Denies chest pain, palpitations or shortness of breath. Denies lightheadedness, dizziness or focal deficits. Objective - Vital Signs Vital signs: Vital Signs Temp 98.7 F 08/01/19 15:15 Pulse 68 08/01/19 15:15 Resp 20 08/01/19 15:15 BP 115/75 08/01/19 15:15 Pulse Ox 95 08/01/19 12:08 Intake & Output 07/31/19 08/01/19 08/01/19 18:59 06:59 18:59 Intake Total 380 450 180 Output Total 10 3000 Balance 370 450 -2820 Weight 74 kg Intake: IV 200 Intake, IV Titration 180 Amount Dextrose 5% in Water 1, 180 000 ml @ 60 mls/hr IV . [id number] [facility] Rx#:[id number] Oral 450 180 Output: Hemodialysis 3000 Estimated Blood Loss 10 Other: Voiding Method Toilet # Voids 0 0 - Exam GENERAL: Sitting up in bed, no apparent distress at the time of examination. Pleasant and cooperative. HEENT: Head is atraumatic, normocephalic. Pupils are equal, round, and reactive to light. Sclerae anicteric. Conjunctivae are clear. Mucus membranes of the mouth are moist. Neck is supple. RESPIRATORY: Clear to auscultation. No wheezes, rales, or rhonchi. No use of accessory muscles. CARDIOVASCULAR: Regular rate and rhythm. S1 and S2 noted. No systolic or diastolic murmur auscultated. No JVD noted. No S3 or S4 noted. GASTROINTESTINAL: No distention noted. Abdomen soft and round. Normal active bowel sounds auscultated x 4 quadrants. No pain or tenderness noted upon palpation. INTEGUMENTARY: No cyanosis. No jaundice. No rashes noted. No cellulitis noted. Left foot dressing clean dry and intact, [place] wound VAC present EXTREMITIES: 2+ peripheral pulses. No evidence of peripheral edema. No calf tenderness noted. NEUROLOGIC: Cranial nerves II-XII intact. PSYCHIATRIC: Awake, alert, and oriented X 3. Appropriate affect. Intact judgement and insight. - Labs CBC & Chem 7: 07/30/19 16:00 07/31/19 04:11 Labs: Abnormal Lab Results - Last 24 Hours (Table) 07/31/19 07/31/19 08/01/19 Range/Units 20:38 21:44 01:50 POC Glucose (mg/dL) 140 H 137 H 140 H (75-99) mg/dL 08/01/19 08/01/19 08/01/19 Range/Units 07:20 11:57 16:41 POC Glucose (mg/dL) 139 H 117 H 62 L (75-99) mg/dL 08/01/19 Range/Units 17:06 POC Glucose (mg/dL) 47 L (75-99) mg/dL Microbiology - Last 24 Hours (Table) 07/31/19 16:15 Gram Stain - Preliminary Toe - Left First Wound Culture - Preliminary 07/31/19 16:15 Anaerobic Culture - Preliminary Toe - Left First Assessment and Plan Assessment: (1) 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, status post amputation left first and second toes Current Visit: Yes Status: Acute Code(s): I70.362 - ATHSCL UNSP TYPE BYPASS OF THE EXTRM W G[place]GR[place], LEFT LEG SNOMED Code(s): 06779793790553338 (2) Insulin-requiring or dependent type II diabetes mellitus Current Visit: Yes Status: Acute Code(s): E11.9 - TYPE 2 DIABETES MELLITUS WITHOUT COMPLICATIONS; Z79.4 - [facility] (CURRENT) USE OF INSULIN SNOMED Code(s): 977028384 (3) Hyperglycemic crisis in diabetes mellitus Current Visit: Yes Status: Acute Code(s): E11.65 - TYPE 2 DIABETES MELLITUS WITH HYPERGLYCEMIA SNOMED Code(s): 702415310 (4) Acute on chronic renal failure Current Visit: No Status: Acute Code(s): N17.9 - ACUTE KIDNEY FAILURE, UNSPECIFIED; N18.9 - CHRONIC KIDNEY DISEASE, UNSPECIFIED SNOMED Code(s): 771708217 (5) Anemia of chronic disease Current Visit: No Status: Acute Code(s): D63.8 - ANEMIA IN OTHER CHRONIC DISEASES CLASSIFIED ELSEWHERE SNOMED Code(s): 209214403 (6) Atherosclerosis of [place] arteries of left leg with ulceration of other part of foot Current Visit: No Status: Acute Code(s): I70.245 - ATHSCL [place] ARTERIES OF LEFT LEG W ULCERATION OTH PRT FOOT SNOMED Code(s): 918072987873190 (7) Chronic kidney disease with end stage renal disease on dialysis due to type 2 diabetes mellitus Current Visit: Yes Status: Acute Code(s): E11.22 - TYPE 2 DIABETES MELLITUS W DIABETIC CHRONIC KIDNEY DISEASE; N18.6 - END STAGE RENAL DISEASE; Z99.2 - DEPENDENCE ON RENAL DIALYSIS SNOMED Code(s): 277488686167 Plan: Continue on current medication regime ,monitoring and symptomatic treatment. Hemodialysis today pending. Close monitoring of Accu-Cheks.-Currently consuming only 50% of diet. Pain management as per surgery. Cultures pending. The impression and plan of care has been dictated as directed. : I performed a history and examination of this patient, discussed the same with the dictator. I agree with the dictator's note ,documented as a scribe. Any additional findings or plans will be noted.
[2019-08-01 17:28] LABS: Glucose,Whole Blood 67 mg/dL (75-99)
[2019-08-01] MEDS: HYDROcodone/APAP 5-325MG 1 EACH TAB PO PRN ×2 (18:35→22:09)
[2019-08-01] MEDS: FUROSEMIDE 40 MG TAB PO SCH (18:36)
[2019-08-01] MEDS: CITALOPRAM HYDROBROMIDE 20 MG TAB PO SCH (18:36)
[2019-08-01] MEDS: CHOLECALCIFEROL 1,000 UNIT TAB PO SCH (18:38)
[2019-08-01 20:38] LABS: Glucose,Whole Blood 117 mg/dL (75-99)
--- NOTE | 2019-08-01 21:05 | PN ---
PROGRESS NOTE Patient is actually seen on hemodialysis. She is tolerating her treatment fairly well. She denies any significant complaints. On examination, blood pressure was 103/52, heart rate 68 per minute. She is afebrile. EXAMINATION OF THE HEART: S1 and S2. EXAMINATION OF LUNGS: Bilateral breath sounds are heard. ABDOMEN: Soft, non-tender. Examination of lower extremities shows no significant edema. Labs are not available from today. ASSESSMENT: 1. End-stage renal disease, on hemodialysis on a Monday, , Monday schedule. 2. Peripheral vascular disease, status post amputation of first and second toes. 3. Type 2 diabetes with hyperglycemia, currently improved. 4. Hypertension with chronic kidney disease. 5. Chronic kidney disease mineral bone disorder. PLAN: Next dialysis on Monday. Encourage increased oral intake, mainly protein. Check labs in a.m. MMODL / IJN: [id number] /
[2019-08-01] MEDS: LISINOPRIL 10 MG TAB PO SCH (21:18)
[2019-08-01] MEDS: ATORVASTATIN 80 MG TAB PO SCH (21:18)
[2019-08-01 22:07] LABS: Glucose,Whole Blood 82 mg/dL (75-99)
[2019-08-02] MEDS: LACTATED RINGERS 1,000 ML IV SCH (00:29)
[2019-08-02 02:14] LABS: Glucose,Whole Blood 61 mg/dL (75-99)
[2019-08-02 02:33] LABS: Glucose,Whole Blood 63 mg/dL (75-99)
[2019-08-02 02:54] LABS: Glucose,Whole Blood 83 mg/dL (75-99)
[2019-08-02 06:02] LABS: Glucose,Whole Blood 142 mg/dL (75-99)
[2019-08-02] MEDS: INSULIN ASPART (NovoLOG) 100 UNIT/ML VIAL SQ SCH ×4 (06:27→20:37)
[2019-08-02] MEDS: CALCIUM CARB-MAG CARB-FOLIC 1 EACH TAB PO SCH ×3 (06:30→18:17)
[2019-08-02] MEDS: CALCIUM ACETATE 667 MG CAP PO SCH ×2 (06:30→18:17)
[2019-08-02 06:47] LABS: Anisocytosis Slight; Basophils % (A) 0 %; Eosinophils # (A) 0.2 k/uL (0-0.7); Eosinophils % (A) 3 %; HCT 30.4 % (34.0-46.0); Hypochromasia Slight; Lymphocytes # (A) 1.2 k/uL (1.0-4.8); Lymphocytes % (A) 18 %; MCH 29.3 pg (25.0-35.0); MCHC 31.5 g/dL (31.0-37.0); MCV 93.2 fL (80.0-100.0); Mean Platelet Volume 7.5; Monocytes # (A) 0.5 k/uL (0-1.0); Monocytes % (A) 7 %; Neutrophils # (A) 4.9 k/uL (1.3-7.7); Neutrophils % (A) 72 %; Platelet Count 232 k/uL (150-450); RBC 3.26 m/uL (3.80-5.40); RDW 18.2 % (11.5-15.5); WBC 6.8 k/uL (3.8-10.6)
[2019-08-02 06:59] LABS: Calcium 8.9 mg/dL (8.4-10.2); Potassium 4.9 mmol/L (3.5-5.1)
[2019-08-02 07:03] LABS: HGB 9.6 gm/dL (11.4-16.0)
[2019-08-02] MEDS ORDERED: ACETAMINOPHEN TAB 325 MG TAB PO PRN (09:04)
[2019-08-02] MEDS: CYANOCOBALAMIN 500 MCG TAB PO SCH (09:12)
[2019-08-02] MEDS: FOLIC ACID-VIT B COMPLEX-VIT C 1 CAP PO SCH (09:12)
[2019-08-02] MEDS: HYDROcodone/APAP 5-325MG 1 EACH TAB PO PRN ×2 (09:13→18:17)
[2019-08-02] MEDS: CHOLECALCIFEROL 1,000 UNIT TAB PO SCH (09:13)
[2019-08-02] MEDS: INSULIN DETEMIR (LEVEMIR) 100 UNIT/ML SYR SQ SCH ×2 (09:14→09:37)
[2019-08-02 12:03] LABS: Glucose,Whole Blood 147 mg/dL (75-99)
[2019-08-02] MEDS: FUROSEMIDE 40 MG TAB PO SCH (13:17)
[2019-08-02] MEDS: DEXTROSE 5% IN WATER 1,000 ML IV SCH (13:17)
[2019-08-02] MEDS: CITALOPRAM HYDROBROMIDE 20 MG TAB PO SCH (13:17)
--- NOTE | 2019-08-02 14:39 | P.PN ---
Subjective Progress Note Date: 08/02/19 Patient seen and examined. Overall no complaints. No acute distress resting comfortably Left lower extremity wound VAC intact. No evidence of leak. #1 postop left first and second toe ray amputation #2 dry gangrene Severe peripheral arterial disease Patient doing well overall. Arrange home VAC, paperwork done yesterday. VAC to be changed 3 times a week. Follow up with Dr Murphy in 2 weeks. okay for discharge from vascular standpoint Objective - Vital Signs Vital signs: Vital Signs Temp 98.2 F 08/02/19 11:42 Pulse 68 08/02/19 11:42 Resp 16 08/02/19 11:42 BP 102/58 08/02/19 11:42 Pulse Ox 94 L 08/02/19 11:42 Intake & Output 08/01/19 08/02/19 08/02/19 18:59 06:59 18:59 Intake Total 300 420 360 Output Total 3000 0 Balance -2700 420 360 Weight 74.5 kg Intake: Intake, IV Titration 300 Amount Dextrose 5% in Water 1, 300 000 ml @ 60 mls/hr IV . [id number] [facility] Rx#:[id number] Oral 300 120 360 Output: Urine 0 Hemodialysis 3000 Other: Voiding Method Toilet Toilet # Voids 0 0 1 # Bowel Movements 0 - Labs CBC & Chem 7: 08/02/19 06:19 08/02/19 06:19 Labs: Abnormal Lab Results - Last 24 Hours (Table) 08/01/19 08/01/19 08/01/19 Range/Units 16:41 17:06 17:08 RBC (3.80-5.40) m/uL Hgb (11.4-16.0) gm/dL Hct (34.0-46.0) % RDW (11.5-15.5) % Sodium (137-145) mmol/L [place] (98-107) mmol/L BUN (7-17) mg/dL Creatinine (0.52-1.04) mg/dL Glucose (74-99) mg/dL POC Glucose (mg/dL) 62 L 47 L 52 L (75-99) mg/dL 08/01/19 08/01/19 08/02/19 Range/Units 17:25 20:37 02:13 RBC (3.80-5.40) m/uL Hgb (11.4-16.0) gm/dL Hct (34.0-46.0) % RDW (11.5-15.5) % Sodium (137-145) mmol/L [place] (98-107) mmol/L BUN (7-17) mg/dL Creatinine (0.52-1.04) mg/dL Glucose (74-99) mg/dL POC Glucose (mg/dL) 67 L 117 H 61 L (75-99) mg/dL 08/02/19 08/02/19 08/02/19 Range/Units 02:31 06:01 06:19 RBC 3.26 L (3.80-5.40) m/uL Hgb 9.6 L D (11.4-16.0) gm/dL Hct 30.4 L (34.0-46.0) % RDW 18.2 H (11.5-15.5) % Sodium (137-145) mmol/L [place] (98-107) mmol/L BUN (7-17) mg/dL Creatinine (0.52-1.04) mg/dL Glucose (74-99) mg/dL POC Glucose (mg/dL) 63 L 142 H (75-99) mg/dL 08/02/19 08/02/19 Range/Units 06:19 11:55 RBC (3.80-5.40) m/uL Hgb (11.4-16.0) gm/dL Hct (34.0-46.0) % RDW (11.5-15.5) % Sodium 130 L (137-145) mmol/L Ch[place]ide 94 L (98-107) mmol/L BUN 28 H (7-17) mg/dL Creatinine 4.09 H (0.52-1.04) mg/dL Glucose 129 H (74-99) mg/dL POC Glucose (mg/dL) 147 H (75-99) mg/dL Microbiology - Last 24 Hours (Table) 07/31/19 16:15 Gram Stain - Preliminary Toe - Left First Wound Culture - Preliminary Gram Neg Bacilli
[2019-08-02] MEDS: HYDROmorphone 1 MG/ML 1 ML SYRINGE IVP PRN ×2 (14:46→23:04)
[2019-08-02 17:04] LABS: Glucose,Whole Blood 103 mg/dL (75-99)
--- NOTE | 2019-08-02 17:15 | P.PN ---
Subjective Progress Note Date: 08/02/19 This is a pleasant 74-year-old white female who was directly admitted from the OR yesterday where she was undergoing a left toe amputation secondary to gangrene and osteomyelitis of the left great toe and second toe. She subsequently discontinued her insulin a few days prior to the surgery during surgical day and was found to have her blood sugars exceeding 500 she was admitted for further care. I placed her on diabetic insulin sliding scale her regular home medications with with some hydration and her sugars this morning were 117 and much improvement. However I did see that she had a morning meal served so I'm thinking that surgery will be postponed until tomorrow. She currently has no complaints and is feeling well. 07/31/2019 hypoglycemic, received D50, currently nothing by mouth for surgery. Scheduled for amputation of first and second toes of the left foot today with vascular surgery. Denies chest pain, palpitations or shortness of breath. Vital signs stable. Afebrile. 08/01/2019 under amputation of left first and second toes yesterday, tolerated procedure well. Wound VAC present. Increased pain during the night but currently controlled. Scheduled for dialysis today. Vital signs stable. Consumed 50% of breakfast with no nausea vomiting or diarrhea. Denies chest pain, palpitations or shortness of breath. Denies lightheadedness, dizziness or focal deficits. 08/02/2019 pain controlled. Received hemodialysis yesterday. Evaluated by PT/OT with subacute rehab recommended at discharge. Isolated fever 100.4 X 1, normal WBC. Denies chills. afebrile. Vital signs stable. Blood sugars currently controlled. Objective - Vital Signs Vital signs: Vital Signs Temp 98.2 F 08/02/19 12:00 Pulse 71 08/02/19 12:00 Resp 16 08/02/19 11:42 BP 102/58 08/02/19 11:42 Pulse Ox 94 L 08/02/19 11:42 Intake & Output 08/01/19 08/02/19 08/02/19 18:59 06:59 18:59 Intake Total 300 420 360 Output Total 3000 0 Balance -2700 420 360 Weight 74.5 kg Intake: Intake, IV Titration 300 Amount Dextrose 5% in Water 1, 300 000 ml @ 60 mls/hr IV . [id number] [facility] Rx#:[id number] Oral 300 120 360 Output: Urine 0 Hemodialysis 3000 Other: Voiding Method Toilet Toilet # Voids 0 0 1 # Bowel Movements 0 - Exam GENERAL: Sitting up in chair, alert and oriented 3, no acute distress HEENT: Head is atraumatic, normocephalic. Pupils are equal, round, and reactive to light. Sclerae anicteric. Conjunctivae are clear. Mucus membranes of the mouth are moist. Neck is supple. RESPIRATORY: Clear to auscultation. No wheezes, rales, or rhonchi. No use of accessory muscles. CARDIOVASCULAR: Regular rate and rhythm. S1 and S2 noted. No systolic or diastolic murmur auscultated. No JVD noted. No S3 or S4 noted. GASTROINTESTINAL: No distention noted. Abdomen soft and round. Normal active bowel sounds auscultated x 4 quadrants. No pain or tenderness noted upon palpation. INTEGUMENTARY: No cyanosis. No jaundice. No rashes noted. No cellulitis noted. Left foot dressing clean dry and intact, Prevana wound VAC present EXTREMITIES: 2+ peripheral pulses. No evidence of peripheral edema. No calf tenderness noted. NEUROLOGIC: Cranial nerves II-XII intact. PSYCHIATRIC: Awake, alert, and oriented X 3. Appropriate affect. Intact judgement and insight. - Labs CBC & Chem 7: 08/02/19 06:19 08/02/19 06:19 Labs: Abnormal Lab Results - Last 24 Hours (Table) 08/01/19 08/01/19 08/01/19 Range/Units 17:06 17:08 17:25 RBC (3.80-5.40) m/uL Hgb (11.4-16.0) gm/dL Hct (34.0-46.0) % RDW (11.5-15.5) % Sodium (137-145) mmol/L Chloride (98-107) mmol/L BUN (7-17) mg/dL Creatinine (0.52-1.04) mg/dL Glucose (74-99) mg/dL POC Glucose (mg/dL) 47 L 52 L 67 L (75-99) mg/dL 08/01/19 08/02/19 08/02/19 Range/Units 20:37 02:13 02:31 RBC (3.80-5.40) m/uL Hgb (11.4-16.0) gm/dL Hct (34.0-46.0) % RDW (11.5-15.5) % Sodium (137-145) mmol/L Chloride (98-107) mmol/L BUN (7-17) mg/dL Creatinine (0.52-1.04) mg/dL Glucose (74-99) mg/dL POC Glucose (mg/dL) 117 H 61 L 63 L (75-99) mg/dL 08/02/19 08/02/19 08/02/19 Range/Units 06:01 06:19 06:19 RBC 3.26 L (3.80-5.40) m/uL Hgb 9.6 L D (11.4-16.0) gm/dL Hct 30.4 L (34.0-46.0) % RDW 18.2 H (11.5-15.5) % Sodium 130 L (137-145) mmol/L Chloride 94 L (98-107) mmol/L BUN 28 H (7-17) mg/dL Creatinine 4.09 H (0.52-1.04) mg/dL Glucose 129 H (74-99) mg/dL POC Glucose (mg/dL) 142 H (75-99) mg/dL 08/02/19 08/02/19 Range/Units 11:55 16:56 RBC (3.80-5.40) m/uL Hgb (11.4-16.0) gm/dL Hct (34.0-46.0) % RDW (11.5-15.5) % Sodium (137-145) mmol/L Chloride (98-107) mmol/L BUN (7-17) mg/dL Creatinine (0.52-1.04) mg/dL Glucose (74-99) mg/dL POC Glucose (mg/dL) 147 H 103 H (75-99) mg/dL Microbiology - Last 24 Hours (Table) 07/31/19 16:15 Gram Stain - Preliminary Toe - Left First Wound Culture - Preliminary Gram Neg Bacilli Assessment and Plan Assessment: (1) 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, status post amputation left first and second toes Current Visit: Yes Status: Acute Code(s): I70.362 - ATHSCL UNSP TYPE BYPASS OF THE EXTRM W GANGRENE, LEFT LEG SNOMED Code(s): 26183529063106139 (2) Insulin-requiring or dependent type II diabetes mellitus Current Visit: Yes Status: Acute Code(s): E11.9 - TYPE 2 DIABETES MELLITUS WITHOUT COMPLICATIONS; Z79.4 - DIRECTOR GIFT (CURRENT) USE OF INSULIN SNOMED Code(s): 891595836 (3) Hyperglycemic crisis in diabetes mellitus Current Visit: Yes Status: Acute Code(s): E11.65 - TYPE 2 DIABETES MELLITUS WITH HYPERGLYCEMIA SNOMED Code(s): 121052092 (4) Acute on chronic renal failure Current Visit: No Status: Acute Code(s): N17.9 - ACUTE KIDNEY FAILURE, UNSPECIFIED; N18.9 - CHRONIC KIDNEY DISEASE, UNSPECIFIED SNOMED Code(s): 176336493 (5) Anemia of chronic disease Current Visit: No Status: Acute Code(s): D63.8 - ANEMIA IN OTHER CHRONIC DISEASES CLASSIFIED ELSEWHERE SNOMED Code(s): 736175537 (6) 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 Hemodialysis as per nephrology. Lantus dose decreased, consuming 50% of diet, yesterday afternoon patient experiencing lower blood sugars -Close monitoring of Accu-Cheks.- Pain management as per surgery. Cultures pending. Discharge planning in progress for subacute rehab on Monday to subacute rehab as agreed by both patient and spouse. The impression and plan of care has been dictated as directed. : I performed a history and examination of this patient, discussed the same with the dictator. I agree with the dictator's note ,documented as a scribe. Any additional findings or plans will be noted.
--- NOTE | 2019-08-02 17:53 | PN ---
PROGRESS NOTE Patient is seen for followup for end-stage renal disease. She is sitting up in bed. Patient is complaining of pain in her foot. She tolerated dialysis well yesterday. She is due for dialysis again tomorrow. On examination, blood pressure was 102/58, heart rate 68 per minute. Patient is afebrile. EXAMINATION OF THE HEART: S1 and S2. EXAMINATION OF LUNGS: Bilateral breath sounds are heard. ABDOMEN: Soft, non-tender. Examination of lower extremities shows left foot to be wrapped. Labs show sodium 130, potassium 4.9, BUN 28, serum creatinine 4.09, hemoglobin 9.6 g/dL. ASSESSMENT: 1. End-stage renal disease, on hemodialysis on a Monday, , Monday schedule. 2. Gangrene of the first and second toes, status post amputation. 3. Hypertension, currently controlled. 4. Chronic kidney disease mineral bone disorder. Continue with the PhosLo and Magnebind. 5. Type 2 diabetes, currently controlled. PLAN: Hemodialysis in a.m. MMODL / RAJESHN: [id number] /
[2019-08-02 20:35] LABS: Glucose,Whole Blood 94 mg/dL (75-99)
[2019-08-02] MEDS: ATORVASTATIN 80 MG TAB PO SCH (20:47)
[2019-08-02] MEDS: LISINOPRIL 10 MG TAB PO SCH (20:47)
[2019-08-03 02:06] LABS: Glucose,Whole Blood 88 mg/dL (75-99)
[2019-08-03] MEDS: HYDROcodone/APAP 5-325MG 1 EACH TAB PO PRN ×2 (04:06→20:01)
[2019-08-03 06:09] LABS: Glucose,Whole Blood 124 mg/dL (75-99)
[2019-08-03] MEDS: INSULIN ASPART (NovoLOG) 100 UNIT/ML VIAL SQ SCH ×4 (06:18→20:14)
[2019-08-03] MEDS: HYDROmorphone 1 MG/ML 1 ML SYRINGE IVP PRN ×3 (06:37→22:14)
[2019-08-03] MEDS: CALCIUM CARB-MAG CARB-FOLIC 1 EACH TAB PO SCH ×3 (06:37→17:25)
[2019-08-03] MEDS: CALCIUM ACETATE 667 MG CAP PO SCH ×2 (06:37→17:24)
[2019-08-03] MEDS: LACTATED RINGERS 1,000 ML IV SCH (08:01)
[2019-08-03] MEDS: INSULIN DETEMIR (LEVEMIR) 100 UNIT/ML SYR SQ SCH (08:10)
[2019-08-03] MEDS: CHOLECALCIFEROL 1,000 UNIT TAB PO SCH (08:11)
[2019-08-03] MEDS: CITALOPRAM HYDROBROMIDE 20 MG TAB PO SCH (08:11)
[2019-08-03] MEDS: FOLIC ACID-VIT B COMPLEX-VIT C 1 CAP PO SCH (08:11)
[2019-08-03] MEDS: CYANOCOBALAMIN 500 MCG TAB PO SCH (08:11)
--- NOTE | 2019-08-03 10:31 | P.PN ---
Subjective Progress Note Date: 08/03/19 Principal diagnosis: This is a 74-year-old female with ESRD on dialysis Monday She had left first and second toe amputation and is doing well postop. This morning she feels fairly well. She denies any fever chills cough shortness of breath nausea vomiting. No abdominal pain. She says she is able to ambulate with a walker. She has a bandage on her left foot Objective - Vital Signs Vital signs: Vital Signs Temp 98 F 08/03/19 08:00 Pulse 60 08/03/19 08:00 Resp 18 08/03/19 08:00 BP 88/52 08/03/19 08:00 Pulse Ox 93 L 08/03/19 08:00 Intake & Output 08/02/19 08/03/19 08/03/19 18:59 06:59 18:59 Intake Total 720 Balance 720 Weight 82.5 kg Intake: Intake, IV Titration 240 Amount Dextrose 5% in Water 1, 240 000 ml @ 60 mls/hr IV . [id number] [facility] Rx#:[id number] Oral 480 Other: Voiding Method Toilet # Voids 1 On exam she is awake alert oriented comfortable HEENT exam JVP is elevated about 8-10 cm about sternal angle neck is supple no facial asymmetry. Lungs are significant for bilateral coarse crackle at bases with good air entry bilaterally Heart sounds are unremarkable for any murmur rub gallop Abdomen soft nontender no organomegaly status masses Extremity exam was minimal edema Neurologically awake alert oriented but generalized weakness - Labs CBC & Chem 7: 08/02/19 06:19 08/02/19 06:19 Labs: Abnormal Lab Results - Last 24 Hours (Table) 08/02/19 08/02/19 08/03/19 Range/Units 11:55 16:56 06:07 POC Glucose (mg/dL) 147 H 103 H 124 H (75-99) mg/dL Microbiology - Last 24 Hours (Table) 07/31/19 16:15 Gram Stain - Preliminary Toe - Left First Wound Culture - Preliminary Pseudomonas aeruginosa Presumptive MRSA Gram Neg Bacilli Assessment and Plan Assessment: Impression 1. ESRD on dialysis Monday 2. Likely congestive heart failure. 3. Status post amputation of left first and second toe on 07/31/2019. 4. Anemia of ESRD with hemoglobin going down from 14.9 on 07/30/2019 to 9 .4.. No obvious evidence of any GI bleed. 5. Mild hyponatremia secondary to ESRD and excess free fluid Recommendation 1. Check iron saturation. 2. Repeat CBC to make sure he is not an error 3. Dialysis today with ultrafiltration of 3 L
--- NOTE | 2019-08-03 10:49 | P.PN ---
Subjective 72-year-old pleasant female was admitted for left toe amputation. Patient the is a hemodialysis patient clinically doing well will be discharged to subacute rehabilitation on Monday.patient had 1 episode of fever No overnight events Constitutional: Denied any fatigue denied any fever. Cardio vascular: denied any chest pain, palpitations Gastrointestinal denied any nausea vomiting Pulmonary: Denied any shortness of breath cough Neurologic denied any new focal deficits All inpatient medications were reviewed and appropriate changes in these medications as dictated in the interval history and assessment and plan.patient is presently not on any antibiotics no more fevers after that episode. Objective - Vital Signs Vital signs: Vital Signs Temp 98 F 08/03/19 08:00 Pulse 60 08/03/19 08:00 Resp 18 08/03/19 08:00 BP 88/52 08/03/19 08:00 Pulse Ox 93 L 08/03/19 08:00 Intake & Output 08/02/19 08/03/19 08/03/19 18:59 06:59 18:59 Intake Total 720 Balance 720 Weight 82.5 kg Intake: Intake, IV Titration 240 Amount Dextrose 5% in Water 1, 240 000 ml @ 60 mls/hr IV . [id number] [facility] Rx#:[id number] Oral 480 Other: Voiding Method Toilet # Voids 1 - Exam GENERAL: Sitting up in chair, alert and oriented 3, no acute distress HEENT: Head is atraumatic, normocephalic. Pupils are equal, round, and reactive to light. Sclerae anicteric. Conjunctivae are clear. Mucus membranes of the mouth are moist. Neck is supple. RESPIRATORY: Clear to auscultation. No wheezes, rales, or rhonchi. No use of accessory muscles. CARDIOVASCULAR: Regular rate and rhythm. S1 and S2 noted. No systolic or diastolic murmur auscultated. No JVD noted. No S3 or S4 noted. GASTROINTESTINAL: No distention noted. Abdomen soft and round. Normal active bowel sounds auscultated x 4 quadrants. No pain or tenderness noted upon palpation. INTEGUMENTARY: No cyanosis. No jaundice. No rashes noted. No cellulitis noted. Left foot dressing clean dry and intact, Prevana wound VAC present EXTREMITIES: 2+ peripheral pulses. No evidence of peripheral edema. No calf tenderness noted. NEUROLOGIC: Cranial nerves II-XII intact. PSYCHIATRIC: Awake, alert, and oriented X 3. Appropriate affect. Intact judgement and insight. - Labs CBC & Chem 7: 08/02/19 06:19 08/02/19 06:19 Labs: Abnormal Lab Results - Last 24 Hours (Table) 08/02/19 08/02/19 08/03/19 Range/Units 11:55 16:56 06:07 POC Glucose (mg/dL) 147 H 103 H 124 H (75-99) mg/dL Microbiology - Last 24 Hours (Table) 07/31/19 16:15 Gram Stain - Preliminary Toe - Left First Wound Culture - Preliminary Pseudomonas aeruginosa Presumptive MRSA Gram Neg Bacilli Assessment and Plan Plan: -gangrenous the left lower extremity status post amputation of the left first and second toes with the bypass grafting. -Insulin-dependent type 2 diabetes mellitus -end-stage renal disease hematemesis dependent barely makes any urine -Hyponatremia expected to improve with hemodialysis -Anemia of chronic kidney disease -Severe peripheral vascular disease Plan is to continue with present medications clinical monitoring repeat basic metabolic profile tomorrow possibility of discharge on Monday subacute rehabilitation.
[2019-08-03 12:10] LABS: Glucose,Whole Blood 187 mg/dL (75-99)
[2019-08-03] MEDS: FUROSEMIDE 40 MG TAB PO SCH (12:29)
[2019-08-03 17:28] LABS: Glucose,Whole Blood 93 mg/dL (75-99)
[2019-08-03] MEDS: LISINOPRIL 10 MG TAB PO SCH (20:01)
[2019-08-03] MEDS: ATORVASTATIN 80 MG TAB PO SCH (20:01)
[2019-08-03 20:14] LABS: Glucose,Whole Blood 136 mg/dL (75-99)
[2019-08-03] MEDS ORDERED: GENTAMICIN PER PHARMACY MISCELLANE PRN (21:36)
[2019-08-03] MEDS ORDERED: GENTAMICIN 560 MG in SODIUM CHLORIDE 0.9% 100 ML IVPB ONE (22:30)
[2019-08-03 22:56] LABS: Iron Saturation 9.42 (12.00-45.00)
[2019-08-04 02:05] LABS: Glucose,Whole Blood 139 mg/dL (75-99)
[2019-08-04 06:26] LABS: Glucose,Whole Blood 118 mg/dL (75-99)
[2019-08-04] MEDS: INSULIN ASPART (NovoLOG) 100 UNIT/ML VIAL SQ SCH ×4 (06:30→21:14)
[2019-08-04] MEDS: HYDROcodone/APAP 5-325MG 1 EACH TAB PO PRN ×2 (06:33→21:13)
[2019-08-04] MEDS: CALCIUM CARB-MAG CARB-FOLIC 1 EACH TAB PO SCH ×3 (06:33→17:11)
[2019-08-04] MEDS: CALCIUM ACETATE 667 MG CAP PO SCH ×2 (06:33→17:11)
[2019-08-04] MEDS ORDERED: VANCOMYCIN IV PER PHARMACY 1 EACH MISC MISCELLANE PRN ×2 (08:34→16:39)
[2019-08-04] MEDS ORDERED: PIPERACILLIN-TAZOBACTAM 3.375 GM in SODIUM CHLORIDE 0.9% 100 ML IVPB SCH (09:00)
[2019-08-04] MEDS: LACTATED RINGERS 1,000 ML IV SCH (09:19)
--- NOTE | 2019-08-04 09:19 | P.PN ---
Subjective Patient seen and examined. Overall no complaints.Wound vac was changed monday chelsy No acute distress resting comfortably Left lower extremity wound VAC intact. No evidence of leak. #1 postop left first and second toe ray amputation #2 dry gangrene Severe peripheral arterial disease Patient doing well overall. okay for discharge to rehab from vascular standpoint. There was + culture from a small purulent area intraop, the entirety of the ill appearing tissue was removed with amputation. Continue wound vac, okay with no abiox at this time. Monitor wound progression. If necessary will reculture and initiate during outpatient course. Objective - Vital Signs Vital signs: Vital Signs Temp 97.8 F 08/04/19 04:45 Pulse 70 08/04/19 04:45 Resp 18 08/04/19 04:45 BP 111/51 08/04/19 04:45 Pulse Ox 96 08/04/19 04:45 Intake & Output 08/03/19 08/04/19 08/04/19 18:59 06:59 18:59 Intake Total 222 Output Total 2500 Balance -2500 222 Weight 74.5 kg Intake: Oral 222 Output: Hemodialysis 2500 Other: Voiding Method Toilet - Labs CBC & Chem 7: 08/02/19 06:19 08/02/19 06:19 Labs: Abnormal Lab Results - Last 24 Hours (Table) 08/02/19 08/03/19 08/03/19 Range/Units 06:19 11:50 20:12 POC Glucose (mg/dL) 187 H 136 H (75-99) mg/dL Iron 21 L (50-170) ug/dL TIBC 223 L (228-460) ug/dL Iron Saturation 9.42 L (12.00-45.00) 08/04/19 08/04/19 Range/Units 02:04 06:24 POC Glucose (mg/dL) 139 H 118 H (75-99) mg/dL Iron (50-170) ug/dL TIBC (228-460) ug/dL Iron Saturation (12.00-45.00) Microbiology - Last 24 Hours (Table) 07/31/19 16:15 Anaerobic Culture - Final Toe - Left First Anaerobic Gm Negative Bacilli 07/31/19 16:15 Gram Stain - Final Toe - Left First Wound Culture - Final Pseudomonas aeruginosa Methicillin resist S. aureus Citrobacter amalonaticus
[2019-08-04] MEDS: INSULIN DETEMIR (LEVEMIR) 100 UNIT/ML SYR SQ SCH (09:25)
[2019-08-04] MEDS: CHOLECALCIFEROL 1,000 UNIT TAB PO SCH (09:26)
[2019-08-04] MEDS: FUROSEMIDE 40 MG TAB PO SCH (09:26)
[2019-08-04] MEDS: FOLIC ACID-VIT B COMPLEX-VIT C 1 CAP PO SCH (09:26)
[2019-08-04] MEDS: CYANOCOBALAMIN 500 MCG TAB PO SCH (09:26)
[2019-08-04] MEDS: CITALOPRAM HYDROBROMIDE 20 MG TAB PO SCH (09:26)
[2019-08-04] MEDS: KETOROLAC 30 MG/ML 1 ML VIAL IVP SCH ×3 (09:26→21:13)
--- NOTE | 2019-08-04 09:53 | P.PN ---
Subjective 72-year-old pleasant female was admitted for left toe amputation. Patient the is a hemodialysis patient clinically doing well will be discharged to subacute rehabilitation on Monday.patient had 1 episode of fever 08/04/2019 Patient won't cultures showed anaerobic gram-negative bacilli, Pseudomonas aeruginosa with simvastatin staph aureus Citrobacter patient will be started on Zosyn to cover aerobic gram-negative bacilli and Pseudomonas and vancomycin for methicillin-resistant staph aureus infectious disease will be consulting No overnight events Constitutional: Denied any fatigue denied any fever. Cardio vascular: denied any chest pain, palpitations Gastrointestinal denied any nausea vomiting Pulmonary: Denied any shortness of breath cough Neurologic denied any new focal deficits All inpatient medications were reviewed and appropriate changes in these medications as dictated in the interval history and assessment and plan.patient is presently not on any antibiotics no more fevers after that episode. Objective - Vital Signs Vital signs: Vital Signs Temp 97.8 F 08/04/19 04:45 Pulse 70 08/04/19 04:45 Resp 18 08/04/19 04:45 BP 111/51 08/04/19 04:45 Pulse Ox 96 08/04/19 04:45 Intake & Output 08/03/19 08/04/19 08/04/19 18:59 06:59 18:59 Intake Total 222 118 Output Total 2500 Balance -2500 222 118 Weight 74.5 kg Intake: Oral 222 118 Output: Hemodialysis 2500 Other: Voiding Method Toilet - Exam GENERAL: Sitting up in chair, alert and oriented 3, no acute distress HEENT: Head is atraumatic, normocephalic. Pupils are equal, round, and reactive to light. Sclerae anicteric. Conjunctivae are clear. Mucus membranes of the mouth are moist. Neck is supple. RESPIRATORY: Clear to auscultation. No wheezes, rales, or rhonchi. No use of ac cessory muscles. CARDIOVASCULAR: Regular rate and rhythm. S1 and S2 noted. No systolic or diastolic murmur auscultated. No JVD noted. No S3 or S4 noted. GASTROINTESTINAL: No distention noted. Abdomen soft and round. Normal active bowel sounds auscultated x 4 quadrants. No pain or tenderness noted upon palpation. INTEGUMENTARY: No cyanosis. No jaundice. No rashes noted. No cellulitis noted. Left foot dressing clean dry and intact, Prevana wound VAC present EXTREMITIES: 2+ peripheral pulses. No evidence of peripheral edema. No calf tenderness noted. NEUROLOGIC: Cranial nerves II-XII intact. PSYCHIATRIC: Awake, alert, and oriented X 3. Appropriate affect. Intact judgement and insight. - Labs CBC & Chem 7: 08/02/19 06:19 08/02/19 06:19 Labs: Abnormal Lab Results - Last 24 Hours (Table) 08/02/19 08/03/19 08/03/19 Range/Units 06:19 11:50 20:12 POC Glucose (mg/dL) 187 H 136 H (75-99) mg/dL Iron 21 L (50-170) ug/dL TIBC 223 L (228-460) ug/dL Iron Saturation 9.42 L (12.00-45.00) 08/04/19 08/04/19 Range/Units 02:04 06:24 POC Glucose (mg/dL) 139 H 118 H (75-99) mg/dL Iron (50-170) ug/dL TIBC (228-460) ug/dL Iron Saturation (12.00-45.00) Microbiology - Last 24 Hours (Table) 07/31/19 16:15 Anaerobic Culture - Final Toe - Left First Anaerobic Gm Negative Bacilli 07/31/19 16:15 Gram Stain - Final Toe - Left First Wound Culture - Final Pseudomonas aeruginosa Methicillin resist S. aureus Citrobacter amalonaticus Assessment and Plan Plan: -gangrenous the left lower extremity status post amputation of the left first and second toes with the bypass grafting. Patient has a above-mentioned bacterium wound cultures and patient will be started on Zosyn and vancomycin and gentamicin will be discontinued: Monitor blood sugars -Insulin-dependent type 2 diabetes mellitus monitor blood sugars continue with present regimen -end-stage renal disease hematemesis dependent barely makes any urine -Hyponatremia expected to improve with hemodialysis -Anemia of chronic kidney disease -Severe peripheral vascular disease Plan is to continue with present medications clinical monitoring repeat basic metabolic profile tomorrow possibility of discharge on Monday subacute rehabilitation.
[2019-08-04] MEDS ORDERED: VANCOMYCIN 1,500 MG in SODIUM CHLORIDE 0.9% 250 ML IVPB ONE ×2 (10:00→19:00)
[2019-08-04 10:33] LABS: Glucose,Whole Blood 166 mg/dL (75-99)
[2019-08-04 12:02] LABS: Glucose,Whole Blood 169 mg/dL (75-99)
--- NOTE | 2019-08-04 12:26 | P.PN ---
Subjective Progress Note Date: 08/04/19 Principal diagnosis: This is a 74-year-old female with ESRD on dialysis Monday She had left first and second toe amputation and is doing well postop. This morning she feels fairly well. She denies any fever chills cough shortness of breath nausea vomiting. No abdominal pain. She says she is able to ambulate with a walker. She has a bandage on her left foot Objective - Vital Signs Vital signs: Vital Signs Temp 99.5 F 08/04/19 08:00 Pulse 66 08/04/19 08:00 Resp 20 08/04/19 08:00 BP 109/49 08/04/19 08:00 Pulse Ox 92 L 08/04/19 08:00 Intake & Output 08/03/19 08/04/19 08/04/19 18:59 06:59 18:59 Intake Total 222 118 Output Total 2500 Balance -2500 222 118 Weight 74.5 kg Intake: Oral 222 118 Output: Hemodialysis 2500 Other: Voiding Method Toilet On examination she is awake alert oriented comfortable sitting in a chair eating her lunch HEENT exam no JVP neck is supple no facial asymmetry Lungs are clear to auscultation with an occasional coarse crackle not clear but cough Heart sounds are remarkable for grade 2 systolic ejection murmur. Abdomen soft nontender no masses felt Extremity exam reveals trace edema on the left right has no edema Neurologically awake alert oriented. She has a bandage on her left foot - Labs CBC & Chem 7: 08/02/19 06:19 08/02/19 06:19 Labs: Abnormal Lab Results - Last 24 Hours (Table) 08/02/19 08/03/19 08/04/19 Range/Units 06:19 20:12 02:04 POC Glucose (mg/dL) 136 H 139 H (75-99) mg/dL Iron 21 L (50-170) ug/dL TIBC 223 L (228-460) ug/dL Iron Saturation 9.42 L (12.00-45.00) 08/04/19 08/04/19 08/04/19 Range/Units 06:24 10:31 12:00 POC Glucose (mg/dL) 118 H 166 H 169 H (75-99) mg/dL Iron (50-170) ug/dL TIBC (228-460) ug/dL Iron Saturation (12.00-45.00) Microbiology - Last 24 Hours (Table) 07/31/19 16:15 Anaerobic Culture - Final Toe - Left First Anaerobic Gm Negative Bacilli 07/31/19 16:15 Gram Stain - Final Toe - Left First Wound Culture - Final Pseudomonas aeruginosa Methicillin resist S. aureus Citrobacter amalonaticus Assessment and Plan Assessment: Impression 1. ESRD on dialysis Monday. Stable 2. Likely congestive heart failure. Improved 3. Status post amputation of left first and second toe on 07/31/2019. 4. Anemia of ESRD with hemoglobin going down from 14.9 on 07/30/2019 to 9 .4.. No obvious evidence of any GI bleed. 5. Mild hyponatremia secondary to ESRD and excess free fluid. 6. Iron deficiency and saturation 9.4% dated 913 Recommendation 1. IV Ferrlecit 125 mg 1 dose 2. Repeat CBC to make sure he is not an error 3. Dialysis will be on Monday
[2019-08-04] MEDS ORDERED: SODIUM FERRIC GLUCONAT-SUCROSE 125 MG in SODIUM CHLORIDE 0.9% 100 ML IVPB ONE (14:00)
[2019-08-04 16:37] LABS: Glucose,Whole Blood 170 mg/dL (75-99)
[2019-08-04] MEDS: metroNIDAZOLE 500 MG TAB PO SCH ×2 (17:11→21:14)
[2019-08-04 20:37] LABS: Glucose,Whole Blood 113 mg/dL (75-99)
[2019-08-04] MEDS: LISINOPRIL 10 MG TAB PO SCH (21:14)
[2019-08-04] MEDS: ATORVASTATIN 80 MG TAB PO SCH (21:14)
--- NOTE | 2019-08-05 00:06 | P.CONS ---
History of Present Illness - Reason for Consult Consult date: 08/04/19 Left nipple repeat infection with osteomyelitis and positive culture Requesting physician: Jumana Hernández - Chief Complaint Left first and second toe gangrene - History of Present Illness Patient is a 74 year female with a past medical history significant for end-stage renal Disease on hemodialysis patient also have a history of peripheral arterial disease with previous revascularization on her left leg, patient has been admitted to hospital for elective amputation of her right first and second toe because of gangrene at the time of surgery she was noticed to have fracture and osteomyelitis and a small abscess on her left second toe this patient has no fever on admission. However the patient did have low-grade fever of 100.4 on 913 any fever 100.7F yesterday the patient did not receive antibiotic initially the patient culture came back positive with MRSA pseudomonas and anaerobic gram-negative and she did receive a dose of Zosyn and gentamicin last night infection disease has been consulted for further recommendation regarding antibiotic therapy, the patient is currently afebrile the patient did have occasional pain to the left foot amputated site more of a dull aching pain mild in intensity local wound care has been wound VAC has been applied on Monday and is scheduled to be changed tomorrow no problem with a wound VAC Review of Systems Positive points has been mentioned in HPI rest of the systems are negative Past Medical History Past Medical History: Coronary Artery Disease (CAD), Chest Pain / Angina, Diabetes Mellitus, Dialysis, Hyperlipidemia, Hypertension, Myocardial Infarction ([place]), Renal Disease Additional Past Medical History / Comment(s): End-stage renal disease with hemodialysis 3 times a week usually has on , mon.-left arm AV fistula, Non-STEMI 03/14/16, peripheral neuropathy bilateral feet cataracts bilaterally, frequent UTI'S, stress incontinence.lt. finger wound Last Myocardial Infarction Date:: 07/15/2017 History of Any Multi-Drug Resistant Organisms: None Reported Past Surgical History: Appendectomy, Cholecystectomy, Heart Catheterization, Heart Catheterization With Stent, Tonsillectomy Additional Past Surgical History / Comment(s): 03/15/16 PTCA with stent to mid LAD,06-07-16 HEART CATH STENT TO PROX RCA. Restented mid LAD 11/20/16 A/V fistula with revision L upper arm, history of Lasix eye surgery and cataract removal. Past Anesthesia/Blood Transfusion Reactions: No Reported Reaction Date of Last Stent Placement:: 11/21/2016 Past Psychological History: Depression Additional Psychological History / Comment(s): . Smoking Status: Never smoker Past Alcohol Use History: None Reported Additional Past Alcohol Use History / Comment(s): Pt states she started smoking at age 21 (1965) and was a 5 cigarette a day smoker- she only smoked for about 6 months. Past Drug Use History: None Reported - Past Family History Father Family Medical History: Diabetes Mellitus Additional Family Medical History / Comment(s): Father of diabetic complications in his 40's Mother Family Medical History: Cancer, Myocardial Infarction ([place]) Additional Family Medical History / Comment(s): Cancer unknown type. Mother of a MO in her early 50's Brother(s) Family Medical History: Cancer Additional Family Medical History / Comment(s): Her brother from lung cancer and cirrhosis of the liver. Medications and Allergies Home Medications Medication Instructions Recorded Confirmed Type Folic Acid-Vit B Complex-Vit C 1 cap PO DAILY 06/06/16 07/29/19 History [Nephrocaps] Clopidogrel [Plavix] 75 mg PO DAILY #30 tab 11/22/16 07/29/19 Rx Cholecalciferol [Vitamin D3 (25 1,000 unit PO DAILY tab 07/18/17 07/29/19 Rx Mcg = 1000 Iu)] Cyanocobalamin [Vitamin B-12] 1,000 mcg PO DAILY tab 07/18/17 07/29/19 Rx Aspirin EC [Ecotrin Low Dose] 81 mg PO DAILY 02/15/18 07/29/19 History Atorvastatin [Lipitor] 80 mg PO HS 02/15/18 07/29/19 History Calcium Acetate [PhosLo] 1,334 mg PO AC-BID 02/15/18 07/29/19 History Calcium Carb-Mag Carb-Folic 1 tab PO AC-TID 02/15/18 07/29/19 History [Magnebind 400] Furosemide [Lasix] 40 mg PO DAILY 02/15/18 07/29/19 History Lisinopril [Zestril] 10 mg PO HS 02/15/18 07/29/19 History Citalopram Hydrobromide [CeleXA] 20 mg PO DAILY 05/04/19 07/29/19 History INSULIN ASPART (NovoLOG) [NovoLOG See Protocol SQ TID-W/MEALS 05/04/19 07/29/19 History (formulary)] Insulin Detemir [Levemir Flextouch] 30 units SQ QAM 05/04/19 07/29/19 History Allergies Allergy/AdvReac Type Severity Reaction Status Date / Time glyburide [From Diabeta] Allergy Rash/Hives Verified 07/29/19 11:00 Physical Exam Vitals: Vital Signs Temp Pulse Resp BP Pulse Ox 08/04/19 08:00 99.5 F 66 20 109/49 92 L 08/04/19 04:45 97.8 F 70 18 111/51 96 08/03/19 23:30 98.7 F 71 16 124/56 95 08/03/19 19:50 100.7 F H 80 16 128/64 97 08/03/19 17:24 98.1 F 80 18 126/61 08/03/19 16:00 97.8 F 75 18 115/67 94 L Intake and Output 08/04/19 08/04/19 08/04/19 06:59 14:59 22:59 Intake Total 118 Balance 118 Intake: Oral 118 Other: Weight 74.5 kg GENERAL DESCRIPTION: Elderly female lying in bed, no distress. No tachypnea or accessory muscle of respiration use. HEENT: Shows Pallor , no scleral icterus. Oral mucous membrane is dry. No pharyngeal erythema or thrush NECK: Trachea central, no thyromegaly. LUNGS: Unlabored breathing. Clear to auscultation anteriorly. No wheeze or crackle. HEART: S1, S2, regular rate and rhythm. No loud murmur ABDOMEN: Soft, no tenderness , guarding or rigidity, no organomegaly EXTREMITIES: Left foot amputated site with a wound VAC on there is no surrounding swelling redness SKIN: No rash, no masses palpable. NEUROLOGICAL: The patient is awake, alert, oriented x3, mood and affect normal. Results CBC & Chem 7: 08/02/19 06:19 08/02/19 06:19 Labs: Abnormal Lab Results - Last 24 Hours (Table) 08/02/19 08/03/19 08/04/19 Range/Units 06:19 20:12 02:04 POC Glucose (mg/dL) 136 H 139 H (75-99) mg/dL Iron 21 L (50-170) ug/dL TIBC 223 L (228-460) ug/dL Iron Saturation 9.42 L (12.00-45.00) 08/04/19 08/04/19 08/04/19 Range/Units 06:24 10:31 12:00 POC Glucose (mg/dL) 118 H 166 H 169 H (75-99) mg/dL Iron (50-170) ug/dL TIBC (228-460) ug/dL Iron Saturation (12.00-45.00) Microbiology - Last 24 Hours (Table) 07/31/19 16:15 Anaerobic Culture - Final Toe - Left First Anaerobic Gm Negative Bacilli 07/31/19 16:15 Gram Stain - Final Toe - Left First Wound Culture - Final Pseudomonas aeruginosa Methicillin resist S. aureus Citrobacter amalonaticus Assessment and Plan Assessment: 1-patient with left diabetic foot infection in this patient who did have dry gangrene of the left first and second toe she was noticed to have osteomyelitis and small abscess on the second toe status post amputation, the patient had did have removal of the infected part in entirely however her fever post op Is slightly concerning which could be reactive postop however underlying persistent infection not entirely excluded, with a wound culture finalized with multiple pathogens including MRSA and pseudomonas and anaerobic gram-negative bacilli (1) Diabetic infection of left foot Current Visit: Yes Status: Acute Code(s): E11.628 - TYPE 2 DIABETES MELLITUS WITH OTHER SKIN COMPLICATIONS; L08.9 - LOCAL INFECTION OF THE SKIN AND SUBCUTANEOUS TISSUE, UNSP SNOMED Code(s): 86742529 (2) Acute osteomyelitis of left foot Current Visit: Yes Status: Acute Code(s): M86.172 - OTHER ACUTE OSTEOMYELITIS, LEFT ANKLE AND FOOT SNOMED Code(s): 0268730784817782 (3) MRSA (methicillin resistant staph aureus) culture positive Current Visit: Yes Status: Acute Code(s): Z22.322 - CARRIER OR SUSPECTED CARRIER OF METHICILLIN RESIS STAPH SNOMED Code(s): 927236833 Plan: 1-blood cultures 2 stat and will also check a CRP level 2-we will add vancomycin pharmacy to dose, Fortaz 1 g daily and Flagyl 500 by mouth every 8 hours 3-we will reevaluate the wound at the time of wound VAC change to determine need for further antibiotic therapy we will follow on clinical condition and culture to further adjust medication if needed Thank you for this consultation will follow this patient along with you Time with Patient: Greater than 30
[2019-08-05 02:10] LABS: Glucose,Whole Blood 156 mg/dL (75-99)
[2019-08-05] MEDS: LACTATED RINGERS 1,000 ML IV SCH (02:38)
[2019-08-05] MEDS: KETOROLAC 30 MG/ML 1 ML VIAL IVP SCH ×4 (05:22→23:16)
[2019-08-05 06:07] LABS: Calcium 8.5 mg/dL (8.4-10.2); Potassium 5.1 mmol/L (3.5-5.1)
[2019-08-05] MEDS: INSULIN ASPART (NovoLOG) 100 UNIT/ML VIAL SQ SCH ×4 (06:23→21:10)
[2019-08-05 06:33] LABS: Glucose,Whole Blood 77 mg/dL (75-99)
[2019-08-05] MEDS: CALCIUM ACETATE 667 MG CAP PO SCH ×2 (06:49→16:58)
[2019-08-05] MEDS: CALCIUM CARB-MAG CARB-FOLIC 1 EACH TAB PO SCH ×3 (06:49→16:58)
[2019-08-05] MEDS: FUROSEMIDE 40 MG TAB PO SCH (09:57)
[2019-08-05] MEDS: CYANOCOBALAMIN 500 MCG TAB PO SCH (09:57)
[2019-08-05] MEDS: CHOLECALCIFEROL 1,000 UNIT TAB PO SCH (09:57)
[2019-08-05] MEDS: metroNIDAZOLE 500 MG TAB PO SCH ×3 (09:57→21:18)
[2019-08-05] MEDS: CITALOPRAM HYDROBROMIDE 20 MG TAB PO SCH (09:57)
[2019-08-05] MEDS: INSULIN DETEMIR (LEVEMIR) 100 UNIT/ML SYR SQ SCH (09:57)
--- NOTE | 2019-08-05 09:57 | P.PN ---
Subjective Progress Note Date: 08/05/19 Patient is evaluated today in follow-up care status post amputation first and second toes of the left foot. Wound VAC is in place. Vital signs are stable. Patient is afebrile. Labs are reviewed and are consistent with a chronic kidney disease/dialysis dependent. Plan: Continue with local wound care with VAC as an outpatient. We will follow the patient as an outpatient in the office once discharged. The patient is stable from a surgical standpoint for discharge. Objective - Vital Signs Vital signs: Vital Signs Temp 98.6 F 08/05/19 03:45 Pulse 55 L 08/05/19 03:45 Resp 18 08/05/19 03:45 BP 101/54 08/05/19 03:45 Pulse Ox 93 L 08/05/19 03:45 Intake & Output 08/04/19 08/05/19 08/05/19 18:59 06:59 18:59 Intake Total 598 245 Balance 598 245 Intake: Intake, IV Titration 125 Amount Vancomycin 1,500 mg In 125 Sodium Chloride 0.9% 250 ml @ 125 mls/hr IVPB ONCE ONE Rx#:[id number] Oral 598 120 Other: Voiding Method Toilet # Voids 1 - Labs CBC & Chem 7: 08/02/19 06:19 08/05/19 05:40 Labs: Abnormal Lab Results - Last 24 Hours (Table) 08/04/19 08/04/19 08/04/19 Range/Units 10:31 12:00 16:35 Sodium (137-145) mmol/L Chloride (98-107) mmol/L BUN (7-17) mg/dL Creatinine (0.52-1.04) mg/dL POC Glucose (mg/dL) 166 H 169 H 170 H (75-99) mg/dL C-Reactive Protein (<10.0) mg/L 08/04/19 08/04/19 08/05/19 Range/Units 16:48 20:36 02:08 Sodium (137-145) mmol/L Chloride (98-107) mmol/L BUN (7-17) mg/dL Creatinine (0.52-1.04) mg/dL POC Glucose (mg/dL) 113 H 156 H (75-99) mg/dL C-Reactive Protein 75.9 H (<10.0) mg/L 08/05/19 Range/Units 05:40 Sodium 125 L (137-145) mmol/L Chloride 91 L (98-107) mmol/L BUN 45 H (7-17) mg/dL Creatinine 6.06 H (0.52-1.04) mg/dL POC Glucose (mg/dL) (75-99) mg/dL C-Reactive Protein (<10.0) mg/L Microbiology - Last 24 Hours (Table) 07/31/19 16:15 Gram Stain - Final Toe - Left First Wound Culture - Final Pseudomonas aeruginosa Methicillin resist S. aureus Citrobacter amalonaticus
[2019-08-05] MEDS: FOLIC ACID-VIT B COMPLEX-VIT C 1 CAP PO SCH (10:09)
[2019-08-05 11:51] LABS: Glucose,Whole Blood 69 mg/dL (75-99)
[2019-08-05 12:09] LABS: Glucose,Whole Blood 81 mg/dL (75-99)
--- NOTE | 2019-08-05 12:30 | P.PN ---
Subjective Patient is seen in follow-up for her incisional disease. She is maintained on hemodialysis on a Monday schedule. Currently having lunch. No chest pain or shortness of breath. No vomiting or diarrhea. No active complaints. Vital signs are stable. General: The patient appeared well nourished and normally developed. HEENT: Head exam is unremarkable. Neck is without jugular venous distension. LUNGS: Lungs are clear to auscultation and percussion. Breath sounds decreased. HEART: Rate and Rhythm are regular. First and second heart sounds normal. No murmurs, rubs or gallops. ABDOMEN: Abdominal exam reveals normal bowel sounds. Non-tender and non- distended. No evidence of peritonitis. EXTREMITITES: No clubbing, cyanosis, or edema. No obvious drainage noted. Objective - Vital Signs Vital signs: Vital Signs Temp 99.0 F 08/05/19 08:00 Pulse 68 08/05/19 08:00 Resp 20 08/05/19 08:00 BP 103/46 08/05/19 08:00 Pulse Ox 92 L 08/05/19 08:00 Intake & Output 08/04/19 08/05/19 08/05/19 18:59 06:59 18:59 Intake Total 598 245 Balance 598 245 Intake: Intake, IV Titration 125 Amount Vancomycin 1,500 mg In 125 Sodium Chloride 0.9% 250 ml @ 125 mls/hr IVPB ONCE ONE Rx#:[id number] Oral 598 120 Other: Voiding Method Toilet # Voids 1 0 - Labs CBC & Chem 7: 08/02/19 06:19 08/05/19 05:40 Labs: Abnormal Lab Results - Last 24 Hours (Table) 08/04/19 08/04/19 08/04/19 Range/Units 16:35 16:48 20:36 Sodium (137-145) mmol/L Chloride (98-107) mmol/L BUN (7-17) mg/dL Creatinine (0.52-1.04) mg/dL POC Glucose (mg/dL) 170 H 113 H (75-99) mg/dL C-Reactive Protein 75.9 H (<10.0) mg/L 08/05/19 08/05/19 08/05/19 Range/Units 02:08 05:40 11:49 Sodium 125 L (137-145) mmol/L Chloride 91 L (98-107) mmol/L BUN 45 H (7-17) mg/dL Creatinine 6.06 H (0.52-1.04) mg/dL POC Glucose (mg/dL) 156 H 69 L (75-99) mg/dL C-Reactive Protein (<10.0) mg/L Microbiology - Last 24 Hours (Table) 07/31/19 16:15 Gram Stain - Final Toe - Left First Wound Culture - Final Pseudomonas aeruginosa Methicillin resist S. aureus Citrobacter amalonaticus Assessment and Plan Plan: Assessment: 1. End-stage renal disease maintained on hemodialysis on Monday schedule. 2. Status post amputation of left first and second toe on 07/31/2019. 3. Anemia of chronic kidney disease. Iron deficiency noted. 4. Hypertension with chronic kidney disease. Controlled. 5. Insulin-dependent diabetes mellitus. 6. Chronic kidney disease mineral bone disease maintained on PhosLo and magnebind. 7. Hyponatremia secondary to chronic kidney disease. Expect improvement after dialysis. Plan: Hemodialysis tomorrow. 2 more doses of IV iron. 1500 mL fluid restriction.
[2019-08-05] MEDS: SODIUM FERRIC GLUCONAT-SUCROSE 125 MG in SODIUM CHLORIDE 0.9% 100 ML IVPB SCH (14:21)
[2019-08-05 16:40] LABS: Glucose,Whole Blood 101 mg/dL (75-99)
[2019-08-05] MEDS ORDERED: VANCOMYCIN 1,250 MG in SODIUM CHLORIDE 0.9% 250 ML IVPB ONE (18:00)
--- NOTE | 2019-08-05 18:02 | P.PN ---
Subjective Progress Note Date: 08/05/19 This is a pleasant 74-year-old white female who was directly admitted from the OR yesterday where she was undergoing a left toe amputation secondary to gangrene and osteomyelitis of the left great toe and second toe. She subsequently discontinued her insulin a few days prior to the surgery during surgical day and was found to have her blood sugars exceeding 500 she was admitted for further care. I placed her on diabetic insulin sliding scale her regular home medications with with some hydration and her sugars this morning were 117 and much improvement. However I did see that she had a morning meal served so I'm thinking that surgery will be postponed until tomorrow. She currently has no complaints and is feeling well. 07/31/2019 hypoglycemic, received D50, currently nothing by mouth for surgery. Scheduled for amputation of first and second toes of the left foot today with vascular surgery. Denies chest pain, palpitations or shortness of breath. Vital signs stable. Afebrile. 08/01/2019 under amputation of left first and second toes yesterday, tolerated procedure well. Wound VAC present. Increased pain during the night but currently controlled. Scheduled for dialysis today. Vital signs stable. Consumed 50% of breakfast with no nausea vomiting or diarrhea. Denies chest pain, palpitations or shortness of breath. Denies lightheadedness, dizziness or focal deficits. 08/02/2019 pain controlled. Received hemodialysis yesterday. Evaluated by PT/OT with subacute rehab recommended at discharge. Isolated fever 100.4 X 1, normal WBC. Denies chills. afebrile. Vital signs stable. Blood sugars currently controlled. 08/05/2019 periodic fevers with low-grade fever yesterday. Wound cultures reporting MRSA, Pseudomonas, Citrobacter. Blood cultures ordered as per ID, pending. T-max 99.5. Maintained on IV Fortaz, vancomycin, Flagyl as per ID .Sodium 125, scheduled for hemodialysis tomorrow. Receiving IV iron. Consuming 75-100% with blood sugars ranging from 69-101. Objective - Vital Signs Vital signs: Vital Signs Temp 97.5 F L 08/05/19 12:00 Pulse 74 08/05/19 12:00 Resp 20 08/05/19 12:00 BP 126/58 08/05/19 12:00 Pulse Ox 98 08/05/19 12:00 Intake & Output 08/04/19 08/05/19 08/05/19 18:59 06:59 18:59 Intake Total 598 245 240 Balance 598 245 240 Intake: Intake, IV Titration 125 Amount Vancomycin 1,500 mg In 125 Sodium Chloride 0.9% 250 ml @ 125 mls/hr IVPB ONCE ONE Rx#:[id number] Oral 598 120 240 Other: Voiding Method Toilet # Voids 1 0 - Exam GENERAL: Sitting up in bed, alert and oriented 3, no acute distress, tired appearing HEENT: Head is atraumatic, normocephalic. Pupils are equal, round, and reactive to light. Sclerae anicteric. Conjunctivae are clear. Mucus membranes of the mouth are moist. Neck is supple. RESPIRATORY: Clear to auscultation. No wheezes, rales, or rhonchi. No use of accessory muscles. CARDIOVASCULAR: Regular rate and rhythm. S1 and S2 noted. No systolic or diastolic murmur auscultated. No JVD noted. No S3 or S4 noted. GASTROINTESTINAL: No distention noted. Abdomen soft and round. Normal active bowel sounds auscultated x 4 quadrants. No pain or tenderness noted upon palpation. INTEGUMENTARY: No cyanosis. No jaundice. No rashes noted. No cellulitis noted. Left foot dressing clean dry and intact, Prevana wound VAC present EXTREMITIES: 2+ peripheral pulses. No evidence of peripheral edema. No calf tenderness noted. NEUROLOGIC: Cranial nerves II-XII intact. PSYCHIATRIC: Awake, alert, and oriented X 3. Appropriate affect. Intact judgement and insight. Microbiology 07/31/19 16:15 Toe - Left First Gram Stain - Final 07/31/19 16:15 Toe - Left First Wound Culture - Final Pseudomonas aeruginosa Methicillin resist S. aureus Citrobacter amalonaticus 07/31/19 16:15 Toe - Left First Anaerobic Culture - Final Anaerobic Gm Negative Bacilli - Labs CBC & Chem 7: 08/02/19 06:19 08/05/19 05:40 Labs: Abnormal Lab Results - Last 24 Hours (Table) 08/04/19 08/05/19 08/05/19 Range/Units 20:36 02:08 05:40 Sodium 125 L (137-145) mmol/L Chloride 91 L (98-107) mmol/L BUN 45 H (7-17) mg/dL Creatinine 6.06 H (0.52-1.04) mg/dL POC Glucose (mg/dL) 113 H 156 H (75-99) mg/dL 08/05/19 08/05/19 Range/Units 11:49 16:39 Sodium (137-145) mmol/L Chloride (98-107) mmol/L BUN (7-17) mg/dL Creatinine (0.52-1.04) mg/dL POC Glucose (mg/dL) 69 L 101 H (75-99) mg/dL Microbiology - Last 24 Hours (Table) 07/31/19 16:15 Gram Stain - Final Toe - Left First Wound Culture - Final Pseudomonas aeruginosa Methicillin resist S. aureus Citrobacter amalonaticus Assessment and Plan Assessment: (1) Acute osteomyelitis left foot with Gangrene of left lower extremity concurrent with atherosclerosis of bypass graft, status post amputation left first and second toes. MRSA, Pseudomonas, Citrobacter Amalonaticus Current Visit: Yes Status: Acute Code(s): I70.362 - ATHSCL UNSP TYPE BYPASS OF THE EXTRM W GANGRENE, LEFT LEG SNOMED Code(s): 91424140867296512 (2) Insulin-requiring or dependent type II diabetes mellitus Current Visit: Yes Status: Acute Code(s): E11.9 - TYPE 2 DIABETES MELLITUS WITHOUT COMPLICATIONS; Z79.4 - SKILLED NURSING (CURRENT) USE OF INSULIN SNOMED Code(s): 386536086 (3) Hyperglycemic crisis in diabetes mellitus Current Visit: Yes Status: Acute Code(s): E11.65 - TYPE 2 DIABETES MELLITUS WITH HYPERGLYCEMIA SNOMED Code(s): 983436093 (4) Acute on chronic renal failure, end-stage renal disease, on hemodialysis Current Visit: No Status: Acute Code(s): N17.9 - ACUTE KIDNEY FAILURE, UNSPECIFIED; N18.9 - CHRONIC KIDNEY DISEASE, UNSPECIFIED SNOMED Code(s): 701929252 (5) Anemia of chronic disease Current Visit: No Status: Acute Code(s): D63.8 - ANEMIA IN OTHER CHRONIC DISEASES CLASSIFIED ELSEWHERE SNOMED Code(s): 403047912 (6) Atherosclerosis of [place] arteries of left leg with ulceration of other part of foot Current Visit: No Status: Acute Code(s): I70.245 - ATHSCL RED DEVIL ARTERIES OF LEFT LEG W ULCERATION OTH PRT FOOT SNOMED Code(s): 444635040958622 (7) Chronic kidney disease with end stage renal disease on dialysis due to type 2 diabetes mellitus Current Visit: Yes Status: Acute Code(s): E11.22 - TYPE 2 DIABETES MELLITUS W DIABETIC CHRONIC KIDNEY DISEASE; N18.6 - END STAGE RENAL DISEASE; Z99.2 - DEPENDENCE ON RENAL DIALYSIS SNOMED Code(s): 798162814575 (8) hyponatremia secondary to chronic kidney disease (9) hypertension Plan: Continue on current medication regime ,monitoring and symptomatic treatment. Maintain fluid restrictions, Hemodialysis tomorrow. Blood cultures pending. Vancomycin/Fortaz/Flagyl as per infectious disease. Levemir Decreased, close monitoring of Accu-Cheks. Prognosis guarded given multiple complex medical issues. . The impression and plan of care has been dictated as directed. : I performed a history and examination of this patient, discussed the same with the dictator. I agree with the dictator's note ,documented as a scribe. Any additional findings or plans will be noted.
--- NOTE | 2019-08-05 18:32 | PN ---
PROGRESS NOTE DATE OF SERVICE: 08/05/2019. REASON FOR FOLLOWUP: Left first and second toe osteomyelitis. Postoperative fever. INTERVAL HISTORY: The patient is currently afebrile. The patient has been breathing comfortably. The patient denies having any chest pain or any cough. No nausea, no vomiting, no abdominal pain or any worsening pain to the left foot wound area. PHYSICAL EXAMINATION: Blood pressure 103/46, pulse of 68, temperature 99. She is 92% on room air. General description is an elderly female lying in bed in no distress. RESPIRATORY SYSTEM: Unlabored breathing. Clear to auscultation anteriorly. HEART: S1, S2. Regular rate and rhythm. ABDOMEN: Soft. No tenderness. Left foot wound is currently covered with a wound V.A.C., which will be changed tomorrow per the RN. No drainage was noted. DIAGNOSTIC IMPRESSION AND PLAN: Patient with left first and second toe gangrene with underlying osteomyelitis, culture with multiple pathogens. Patient is currently covered with oral Flagyl, IV vancomycin and Fortaz. Will re-evaluate the wound tomorrow at the time of dressing change. If no significant inflammatory changes, may discontinue or give a short course of oral antibiotics. Discussed with the caser up. MMODL / IJN: [id number] /
[2019-08-05 21:05] LABS: Glucose,Whole Blood 115 mg/dL (75-99)
[2019-08-05] MEDS: ATORVASTATIN 80 MG TAB PO SCH (21:18)
[2019-08-05] MEDS: HYDROcodone/APAP 5-325MG 1 EACH TAB PO PRN (21:18)
[2019-08-05] MEDS: LISINOPRIL 10 MG TAB PO SCH (21:18)
[2019-08-06 02:04] LABS: Glucose,Whole Blood 92 mg/dL (75-99)
[2019-08-06 06:11] LABS: Glucose,Whole Blood 50 mg/dL (75-99)
[2019-08-06 06:29] LABS: Glucose,Whole Blood 53 mg/dL (75-99)
[2019-08-06] MEDS: INSULIN ASPART (NovoLOG) 100 UNIT/ML VIAL SQ SCH ×4 (06:38→23:27)
[2019-08-06] MEDS: CALCIUM ACETATE 667 MG CAP PO SCH ×2 (06:58→17:20)
[2019-08-06] MEDS: CALCIUM CARB-MAG CARB-FOLIC 1 EACH TAB PO SCH ×3 (06:58→17:20)
[2019-08-06] MEDS: KETOROLAC 30 MG/ML 1 ML VIAL IVP SCH ×4 (06:58→23:28)
[2019-08-06] MEDS: LACTATED RINGERS 1,000 ML IV SCH (07:00)
[2019-08-06 07:41] LABS: Glucose,Whole Blood 107 mg/dL (75-99)
[2019-08-06] MEDS: CHOLECALCIFEROL 1,000 UNIT TAB PO SCH (08:54)
[2019-08-06] MEDS: metroNIDAZOLE 500 MG TAB PO SCH ×3 (08:54→20:13)
[2019-08-06] MEDS: CYANOCOBALAMIN 500 MCG TAB PO SCH (08:54)
[2019-08-06] MEDS: SODIUM FERRIC GLUCONAT-SUCROSE 125 MG in SODIUM CHLORIDE 0.9% 100 ML IVPB SCH (08:54)
[2019-08-06] MEDS: FUROSEMIDE 40 MG TAB PO SCH (08:54)
[2019-08-06] MEDS: CITALOPRAM HYDROBROMIDE 20 MG TAB PO SCH (08:54)
[2019-08-06] MEDS: FOLIC ACID-VIT B COMPLEX-VIT C 1 CAP PO SCH (08:54)
[2019-08-06] MEDS: INSULIN DETEMIR (LEVEMIR) 100 UNIT/ML SYR SQ SCH (10:06)
--- NOTE | 2019-08-06 10:16 | CDI ---
Documentation Clarification Form Date: 08/06/2019 9:58:21 AM From: Astrid MillerMadridROBERT garcia, CCDS Admit Date: 08/01/2019 9:22:00 AM Patient Name: Margarita Bloom Visit Number: [id number] Discharge Date: ATTENTION: The Clinical Documentation Specialists (CDI) and [facility] Coding Staff appreciate your assistance in clarifying documentation. Please respond to the clarification below the line at the bottom and electronically sign. The CDI & [facility] Coding staff will review the response and follow-up if needed. Please note: Queries are made part of the Legal Health Record. If you have any questions, please contact the author of this message via ITS. Dr. Loreta Guzman: Per the ID Consultation & subsequent progress notes, postop fever is documented. "...admitted to hospital for elective amputation of her right first and second toe because of gangrene at the time of surgery she was noticed to have fracture and osteomyelitis and a small abscess on her left second toe this patient has no fever on admission. However the patient did have low-grade fever of 100.4 on 913 any fever 100.7F yesterday the patient did not receive antibiotic,..." Patients Admitting Diagnosis: Acute osteomyelitis left foot first & second toes with DM II & ESRD hemodialysis dependent Post-Operative Diagnosis: Same Procedure performed: Amputation of left first & second toes. History/Risk Factors: DM II & ESRD on hemodialysis, CAD, Hyperlipidemia, Hypertension, [place], Peripheral neuropathy bilateral feet cataracts bilaterally, Frequent UTIs, Stress incontinence. Clinical Indicators: Patient presented with gangrene of LLE concurrent with & due to atherosclerosis of bypass graft. Treatment: Admitted for IV hydration, Surgery as above. Status post surgery the patient is on IV Fortaz, IV IV Vancomycin, IV Fortaz & IV Flagyl. In order to accurately reflect this patients severity of illness, please clarify if the post-operative diagnosis is: An expected post-procedural or post-surgical condition, if expected please clarify cause. An unexpected post-procedural or post-surgical condition related to surgical care (a complication of care), please clarify the cause if known. An unexpected post-procedural or post-surgical condition, related to the patients underlying medical comorbidities Other, please specify ____ Unable to determine (Last Revision: February 2019) An expected post procedure condition related to her underlying left first and second toes gangrene with acute osteomyelitis, in a patient with underlying associated condition of type II diabetes mellitus [facility]
--- NOTE | 2019-08-06 11:56 | P.PN ---
Subjective Patient is seen in follow-up for end-stage renal disease. She is maintained on hemodialysis on a Monday schedule. No chest pain or shortness of breath. No vomiting or diarrhea. No active complaints. Hemodynamically stable. Vital signs are stable. General: The patient appeared well nourished and normally developed. HEENT: Head exam is unremarkable. Neck is without jugular venous distension. LUNGS: Lungs are clear to auscultation and percussion. Breath sounds decreased. HEART: Rate and Rhythm are regular. First and second heart sounds normal. No murmurs, rubs or gallops. ABDOMEN: Abdominal exam reveals normal bowel sounds. Non-tender and non- distended. No evidence of peritonitis. EXTREMITITES: No clubbing, cyanosis, or edema. No obvious drainage noted. Objective - Vital Signs Vital signs: Vital Signs Temp 97.1 F L 08/06/19 11:05 Pulse 63 08/06/19 11:05 Resp 18 08/06/19 11:05 BP 113/51 08/06/19 11:05 Pulse Ox 97 08/06/19 11:05 Intake & Output 08/05/19 08/06/19 08/06/19 18:59 06:59 18:59 Intake Total 480 360 380 Output Total 0 Balance 480 360 380 Weight 84.7 kg Intake: Intake, IV Titration 120 260 Amount Lactated Ringers 1,000 ml 120 160 @ 20 mls/hr IV .Q24H JONH Rx#:[id number] Sodium Ferric Gluconat- 100 Sucrose 125 mg In Sodium Chloride 0.9% 100 ml @ 100 mls/hr IVPB DAILY JONH Rx#:[id number] Oral 480 240 120 Output: Urine 0 Other: Voiding Method Toilet Toilet # Voids 0 0 0 - Labs CBC & Chem 7: 08/02/19 06:19 08/05/19 05:40 Labs: Abnormal Lab Results - Last 24 Hours (Table) 08/05/19 08/05/19 08/06/19 Range/Units 16:39 21:04 06:10 POC Glucose (mg/dL) 101 H 115 H 50 L (75-99) mg/dL 08/06/19 08/06/19 Range/Units 06:28 07:40 POC Glucose (mg/dL) 53 L 107 H (75-99) mg/dL Microbiology - Last 24 Hours (Table) 08/04/19 16:48 Blood Culture - Preliminary Blood No Growth after 24 hours Assessment and Plan Plan: Assessment: 1. End-stage renal disease maintained on hemodialysis on Monday schedule. 2. Status post amputation of left first and second toe on 07/31/2019. 3. Anemia of chronic kidney disease. Iron deficiency noted. 4. Hypertension with chronic kidney disease. Controlled. 5. Insulin-dependent diabetes mellitus. 6. Chronic kidney disease mineral bone disease maintained on PhosLo and magnebind. 7. Hyponatremia secondary to chronic kidney disease. Expect improvement after dialysis. Plan: Hemodialysis today. 1 more dose of IV iron. 1500 mL fluid restriction.
[2019-08-06 12:05] LABS: Glucose,Whole Blood 148 mg/dL (75-99)
--- NOTE | 2019-08-06 15:53 | P.PN ---
Subjective Patient seen and examined. Overall no complaints.getting dialysis currently. Wound VAC was removed earlier today revealing significant necrosis of the area of previous surgery.. #1 postop left first and second toe ray amputation #2 dry gangrene Severe peripheral arterial disease Patient doing well overall. At this point given the poor outflow and 1 vessel tibial runoff, while we could continue to attempt local wound care and further debridements it would be unlikely to actually heal the wound. This discussion was had with the patient and her son. Given these findings we will plan for a below-knee amputation on with Dr. Landaverde Objective - Vital Signs Vital signs: Vital Signs Temp 97.1 F L 08/06/19 11:05 Pulse 63 08/06/19 11:05 Resp 18 08/06/19 11:05 BP 113/51 08/06/19 11:05 Pulse Ox 97 08/06/19 11:05 Intake & Output 08/05/19 08/06/19 08/06/19 18:59 06:59 18:59 Intake Total 480 360 380 Output Total 0 Balance 480 360 380 Weight 84.7 kg Intake: Intake, IV Titration 120 260 Amount Lactated Ringers 1,000 ml 120 160 @ 20 mls/hr IV .Q24H JONH Rx#:[id number] Sodium Ferric Gluconat- 100 Sucrose 125 mg In Sodium Chloride 0.9% 100 ml @ 100 mls/hr IVPB DAILY JONH Rx#:[id number] Oral 480 240 120 Output: Urine 0 Other: Voiding Method Toilet Toilet # Voids 0 0 0 - Labs CBC & Chem 7: 08/02/19 06:19 08/05/19 05:40 Labs: Abnormal Lab Results - Last 24 Hours (Table) 08/05/19 08/05/19 08/06/19 Range/Units 16:39 21:04 06:10 POC Glucose (mg/dL) 101 H 115 H 50 L (75-99) mg/dL 08/06/19 08/06/19 08/06/19 Range/Units 06:28 07:40 12:00 POC Glucose (mg/dL) 53 L 107 H 148 H (75-99) mg/dL Microbiology - Last 24 Hours (Table) 08/04/19 16:48 Blood Culture - Preliminary Blood No Growth after 24 hours
[2019-08-06 17:10] LABS: Glucose,Whole Blood 108 mg/dL (75-99)
--- NOTE | 2019-08-06 19:27 | PN ---
PROGRESS NOTE DATE OF SERVICE: 08/06/2019 REASON FOR FOLLOWUP: Left first and second toe gangrene with underlying osteomyelitis. INTERVAL HISTORY: The patient is currently afebrile. Patient has been breathing comfortably. Denies having any chest pain or any cough. No nausea, no vomiting. No abdominal pain or any worsening pain to the left foot area. PHYSICAL EXAMINATION: Blood pressure is 142/72 with a pulse of 83, temperature of 98. He is 97% on room air. General description is a middle aged female lying in bed in no distress. Respiratory system: Unlabored breathing, clear to auscultation anteriorly. Heart S1, S2. Regular rate and rhythm. Abdomen is soft. No tenderness. Examination of the left foot after removal of the wound bandage, shows some necrotic changes with evidence of bone at the base of the wound. LABS: No new labs have been obtained. DIAGNOSTIC IMPRESSION AND PLAN: Patient with left 4th and 2nd toe gangrene with underlying osteomyelitis. Culture positive for multiple pathogens with Pseudomonas and MRSA and anaerobic gram negative bacilli, now with evidence of at the wound base. Case was discussed in detail with the surgeon who will be re-evaluating the patient for further surgery. We will keep the patient on vancomycin, Fortaz and Flagyl. Overall prognosis remains guarded. Continue supportive care. MMODL / IJN: [id number] /
[2019-08-06] MEDS: HYDROcodone/APAP 5-325MG 1 EACH TAB PO PRN (20:13)
[2019-08-06] MEDS: ATORVASTATIN 80 MG TAB PO SCH (20:13)
[2019-08-06] MEDS: LISINOPRIL 10 MG TAB PO SCH (20:13)
[2019-08-06 21:14] LABS: Glucose,Whole Blood 159 mg/dL (75-99)
[2019-08-06 22:44] LABS: Hemoglobin A1C 7.7 % (4.0-6.0)
[2019-08-07 06:16] LABS: Glucose,Whole Blood 178 mg/dL (75-99)
[2019-08-07 06:18] LABS: Calcium 8.6 mg/dL (8.4-10.2)
[2019-08-07 06:23] LABS: Vancomycin,Random 21.2 ug/mL
[2019-08-07] MEDS: CALCIUM ACETATE 667 MG CAP PO SCH ×2 (07:11→17:23)
[2019-08-07] MEDS: KETOROLAC 30 MG/ML 1 ML VIAL IVP SCH ×4 (07:11→22:54)
[2019-08-07] MEDS: INSULIN ASPART (NovoLOG) 100 UNIT/ML VIAL SQ SCH ×4 (07:11→20:21)
[2019-08-07] MEDS: CALCIUM CARB-MAG CARB-FOLIC 1 EACH TAB PO SCH ×3 (07:12→17:23)
[2019-08-07] MEDS: LACTATED RINGERS 1,000 ML IV SCH (07:12)
[2019-08-07] MEDS: INSULIN DETEMIR (LEVEMIR) 100 UNIT/ML SYR SQ SCH (08:03)
[2019-08-07] MEDS: metroNIDAZOLE 500 MG TAB PO SCH ×3 (08:03→20:18)
[2019-08-07] MEDS: CYANOCOBALAMIN 500 MCG TAB PO SCH (08:03)
[2019-08-07] MEDS: CHOLECALCIFEROL 1,000 UNIT TAB PO SCH (08:03)
[2019-08-07] MEDS: SODIUM FERRIC GLUCONAT-SUCROSE 125 MG in SODIUM CHLORIDE 0.9% 100 ML IVPB SCH (08:21)
--- NOTE | 2019-08-07 08:26 | P.PN ---
Subjective Progress Note Date: 08/07/19 Patient seen and examined. Overall no complaints. No acute distress. Sitting at the side of the bed, eating breakfast No respiratory distress heart regular Left lower extremity dressing intact #1 postop left first and second toe ray amputation #2 dry gangrene , Necrotic wound edges postop Severe peripheral arterial disease Patient doing well overall. At this time plan for below-knee amputation t omorrow. Uncertain of timing, we will schedule dialysis around OR. NPO after midnight Objective - Vital Signs Vital signs: Vital Signs Temp 97.9 F 08/07/19 04:00 Pulse 71 08/07/19 04:00 Resp 18 08/07/19 04:00 BP 109/44 08/07/19 04:00 Pulse Ox 95 08/07/19 04:00 Intake & Output 08/06/19 08/07/19 08/07/19 18:59 06:59 18:59 Intake Total 600 240 Output Total 3000 Balance 600 -3000 240 Weight 82 kg Intake: Intake, IV Titration 360 Amount Lactated Ringers 1,000 ml 160 @ 20 mls/hr IV .Q24H JONH Rx#:[id number] Sodium Ferric Gluconat- 200 Sucrose 125 mg In Sodium Chloride 0.9% 100 ml @ 100 mls/hr IVPB DAILY JONH Rx#:[id number] Oral 240 240 Output: Urine 0 Hemodialysis 3000 Other: Voiding Method Toilet Toilet # Voids 0 1 # Bowel Movements 1 2 - Labs CBC & Chem 7: 08/02/19 06:19 08/07/19 05:25 Labs: Abnormal Lab Results - Last 24 Hours (Table) 08/02/19 08/06/19 08/06/19 Range/Units : 12:00 16:51 Sodium (137-145) mmol/L Chloride (98-107) mmol/L BUN (7-17) mg/dL Creatinine (0.52-1.04) mg/dL Glucose (74-99) mg/dL POC Glucose (mg/dL) 148 H 108 H (75-99) mg/dL Hemoglobin A1c 7.7 H (4.0-6.0) % 08/06/19 08/07/19 08/07/19 Range/Units 21:11 05:25 06:15 Sodium 132 L (137-145) mmol/L Chloride 97 L (98-107) mmol/L BUN 32 H (7-17) mg/dL Creatinine 4.72 H (0.52-1.04) mg/dL Glucose 184 H (74-99) mg/dL POC Glucose (mg/dL) 159 H 178 H (75-99) mg/dL Hemoglobin A1c (4.0-6.0) % Microbiology - Last 24 Hours (Table) 08/04/19 16:48 Blood Culture - Preliminary Blood No Growth after 48 hours
[2019-08-07] MEDS: FOLIC ACID-VIT B COMPLEX-VIT C 1 CAP PO SCH (09:04)
[2019-08-07 12:24] LABS: Glucose,Whole Blood 220 mg/dL (75-99)
[2019-08-07] MEDS: CITALOPRAM HYDROBROMIDE 20 MG TAB PO SCH (12:31)
[2019-08-07] MEDS: FUROSEMIDE 40 MG TAB PO SCH (12:31)
--- NOTE | 2019-08-07 13:56 | P.PN ---
Subjective Patient is seen in follow-up for end-stage renal disease. She is maintained on hemodialysis on a Monday schedule. No chest pain or shortness of breath. No vomiting or diarrhea. No active complaints. Hemodynamically stable. Tolerated hemodialysis well yesterday. Vital signs are stable. General: The patient appeared well nourished and normally developed. HEENT: Head exam is unremarkable. Neck is without jugular venous distension. LUNGS: Lungs are clear to auscultation and percussion. Breath sounds decreased. HEART: Rate and Rhythm are regular. First and second heart sounds normal. No murmurs, rubs or gallops. ABDOMEN: Abdominal exam reveals normal bowel sounds. Non-tender and non- distended. No evidence of peritonitis. EXTREMITITES: No clubbing, cyanosis, or edema. No obvious drainage noted. Objective - Vital Signs Vital signs: Vital Signs Temp 98.3 F 08/07/19 11:49 Pulse 66 08/07/19 11:49 Resp 20 08/07/19 11:49 BP 124/59 08/07/19 11:49 Pulse Ox 96 08/07/19 11:49 Intake & Output 08/06/19 08/07/19 08/07/19 18:59 06:59 18:59 Intake Total 600 360 Output Total 3000 Balance 600 -3000 360 Weight 82 kg 82 kg Intake: Intake, IV Titration 360 Amount Lactated Ringers 1,000 ml 160 @ 20 mls/hr IV .Q24H JONH Rx#:[id number] Sodium Ferric Gluconat- 200 Sucrose 125 mg In Sodium Chloride 0.9% 100 ml @ 100 mls/hr IVPB DAILY JONH Rx#:[id number] Oral 240 360 Output: Urine 0 Hemodialysis 3000 Other: Voiding Method Toilet Toilet Toilet # Voids 0 1 # Bowel Movements 1 2 - Labs CBC & Chem 7: 08/02/19 06:19 08/07/19 05:25 Labs: Abnormal Lab Results - Last 24 Hours (Table) 08/02/19 08/06/19 08/06/19 Range/Units : 16:51 21:11 Sodium (137-145) mmol/L Chloride (98-107) mmol/L BUN (7-17) mg/dL Creatinine (0.52-1.04) mg/dL Glucose (74-99) mg/dL POC Glucose (mg/dL) 108 H 159 H (75-99) mg/dL Hemoglobin A1c 7.7 H (4.0-6.0) % 08/07/19 08/07/19 08/07/19 Range/Units 05:25 06:15 12:06 Sodium 132 L (137-145) mmol/L Chloride 97 L (98-107) mmol/L BUN 32 H (7-17) mg/dL Creatinine 4.72 H (0.52-1.04) mg/dL Glucose 184 H (74-99) mg/dL POC Glucose (mg/dL) 178 H 220 H (75-99) mg/dL Hemoglobin A1c (4.0-6.0) % Microbiology - Last 24 Hours (Table) 08/04/19 16:48 Blood Culture - Preliminary Blood No Growth after 48 hours Assessment and Plan Plan: Assessment: 1. End-stage renal disease maintained on hemodialysis on Monday schedule. 2. Status post amputation of left first and second toe on 07/31/2019. Scheduled for BKA tomorrow. 3. Anemia of chronic kidney disease. Iron deficiency noted. Status post IV iron. 4. Hypertension with chronic kidney disease. Controlled. 5. Insulin-dependent diabetes mellitus. 6. Chronic kidney disease mineral bone disease maintained on PhosLo and magnebind. 7. Hyponatremia secondary to chronic kidney disease. Improved postdialysis. Plan: Hemodialysis tomorrow.
[2019-08-07] MEDS ORDERED: VANCOMYCIN 1,250 MG in SODIUM CHLORIDE 0.9% 250 ML IVPB ONE (14:00)
--- NOTE | 2019-08-07 15:18 | P.PN ---
Subjective Progress Note Date: 08/06/19 This is a pleasant 74-year-old white female who was directly admitted from the OR yesterday where she was undergoing a left toe amputation secondary to gangrene and osteomyelitis of the left great toe and second toe. She subsequently discontinued her insulin a few days prior to the surgery during surgical day and was found to have her blood sugars exceeding 500 she was admitted for further care. I placed her on diabetic insulin sliding scale her regular home medications with with some hydration and her sugars this morning were 117 and much improvement. However I did see that she had a morning meal served so I'm thinking that surgery will be postponed until tomorrow. She currently has no complaints and is feeling well. 07/31/2019 hypoglycemic, received D50, currently nothing by mouth for surgery. Scheduled for amputation of first and second toes of the left foot today with vascular surgery. Denies chest pain, palpitations or shortness of breath. Vital signs stable. Afebrile. 08/01/2019 under amputation of left first and second toes yesterday, tolerated procedure well. Wound VAC present. Increased pain during the night but currently controlled. Scheduled for dialysis today. Vital signs stable. Consumed 50% of breakfast with no nausea vomiting or diarrhea. Denies chest pain, palpitations or shortness of breath. Denies lightheadedness, dizziness or focal deficits. 08/02/2019 pain controlled. Received hemodialysis yesterday. Evaluated by PT/OT with subacute rehab recommended at discharge. Isolated fever 100.4 X 1, normal WBC. Denies chills. afebrile. Vital signs stable. Blood sugars currently controlled. 08/05/2019 periodic fevers with low-grade fever yesterday. Wound cultures reporting MRSA, Pseudomonas, Citrobacter. Blood cultures ordered as per ID, pending. T-max 99.5. Maintained on IV Fortaz, vancomycin, Flagyl as per ID .Sodium 125, scheduled for hemodialysis tomorrow. Receiving IV iron. Consuming 75-100% with blood sugars ranging from 69-101. 08/06/2019 pain improving, wearing pillow boot, dressing appears clean dry and intact. Diet intake improving, no bowel movement. Wound Vac removed this am,necrotic changes with further surgery being discussed between family and vascular surgery. Hemodialysis scheduled for today.maintained on ceftazidime, vancomycin, Flagyl. as per infectious disease. Afebrile.denies chest pain, palpitations or shortness of breath. Objective - Vital Signs Vital signs: Vital Signs Temp 97.1 F L 08/06/19 11:05 Pulse 66 08/06/19 15:56 Resp 16 08/06/19 15:56 BP 142/72 08/06/19 15:56 Pulse Ox 96 08/06/19 15:56 Intake & Output 08/05/19 08/06/19 08/06/19 18:59 06:59 18:59 Intake Total 480 360 380 Output Total 0 Balance 480 360 380 Weight 84.7 kg Intake: Intake, IV Titration 120 260 Amount Lactated Ringers 1,000 ml 120 160 @ 20 mls/hr IV .Q24H JONH Rx#:[id number] Sodium Ferric Gluconat- 100 Sucrose 125 mg In Sodium Chloride 0.9% 100 ml @ 100 mls/hr IVPB DAILY JONH Rx#:[id number] Oral 480 240 120 Output: Urine 0 Other: Voiding Method Toilet Toilet # Voids 0 0 0 # Bowel Movements 0 - Exam GENERAL: Sitting up in bed, alert and oriented 3, no acute distress, tired appearing HEENT: Head is atraumatic, normocephalic. Pupils are equal, round, and reactive to light. Sclerae anicteric. Conjunctivae are clear. Mucus membranes of the mouth are moist. Neck is supple. RESPIRATORY: Clear to auscultation. No wheezes, rales, or rhonchi. No use of accessory muscles. CARDIOVASCULAR: Regular rate and rhythm. S1 and S2 noted. No systolic or diastolic murmur auscultated. No JVD noted. No S3 or S4 noted. GASTROINTESTINAL: No distention noted. Abdomen soft and round. Normal active bowel sounds auscultated x 4 quadrants. No pain or tenderness noted upon palpation. INTEGUMENTARY: No cyanosis. No jaundice. No rashes noted. No cellulitis noted. Left foot dressing clean dry and intact, [place] wound VAC present EXTREMITIES: 2+ peripheral pulses. No evidence of peripheral edema. No calf tenderness noted. NEUROLOGIC: Cranial nerves II-XII intact. PSYCHIATRIC: Awake, alert, and oriented X 3. Appropriate affect. Intact judgement and insight. Microbiology 07/31/19 16:15 Toe - Left First Gram Stain - Final 07/31/19 16:15 Toe - Left First Wound Culture - Final Pseudomonas aeruginosa Methicillin resist S. aureus Citrobacter amalonaticus 07/31/19 16:15 Toe - Left First Anaerobic Culture - Final Anaerobic Gm Negative Bacilli - Labs CBC & Chem 7: 08/02/19 06:19 08/07/19 05:25 Labs: Abnormal Lab Results - Last 24 Hours (Table) 08/05/19 08/06/19 08/06/19 Range/Units 21:04 06:10 06:28 POC Glucose (mg/dL) 115 H 50 L 53 L (75-99) mg/dL 08/06/19 08/06/19 08/06/19 Range/Units 07:40 12:00 16:51 POC Glucose (mg/dL) 107 H 148 H 108 H (75-99) mg/dL Microbiology - Last 24 Hours (Table) 08/04/19 16:48 Blood Culture - Preliminary Blood No Growth after 24 hours Assessment and Plan Assessment: (1) Acute osteomyelitis left foot with Gangrene of left lower extremity concurrent with atherosclerosis of bypass graft, status post amputation left first and second toes. MRSA, Pseudomonas, Citrobacter Amalonaticusand anaerobic gram-negative bacilli Current Visit: Yes Status: Acute Code(s): I70.362 - ATHSCL UNSP TYPE BYPASS OF THE EXTRM W GANGRENE, LEFT LEG SNOMED Code(s): 74764223828117191 (2) Insulin-requiring or dependent type II diabetes mellitus Current Visit: Yes Status: Acute Code(s): E11.9 - TYPE 2 DIABETES MELLITUS WITHOUT COMPLICATIONS; Z79.4 - SKILLED NURSING (CURRENT) USE OF INSULIN SNOMED Code(s): 879994818 (3) Hyperglycemic crisis in diabetes mellitus Current Visit: Yes Status: Acute Code(s): E11.65 - TYPE 2 DIABETES MELLITUS WITH HYPERGLYCEMIA SNOMED Code(s): 108877208 (4) Acute on chronic renal failure, end-stage renal disease, on hemodialysis Current Visit: No Status: Acute Code(s): N17.9 - ACUTE KIDNEY FAILURE, UNSPE CIFIED; N18.9 - CHRONIC KIDNEY DISEASE, UNSPECIFIED SNOMED Code(s): 778891761 (5) Anemia of chronic disease Current Visit: No Status: Acute Code(s): D63.8 - ANEMIA IN OTHER CHRONIC DISEASES CLASSIFIED ELSEWHERE SNOMED Code(s): 962691437 (6) Atherosclerosis of [place] arteries of left leg with ulceration of other part of foot Current Visit: No Status: Acute Code(s): I70.245 - ATHSCL [place] ARTERIES OF LEFT LEG W ULCERATION OTH PRT FOOT SNOMED Code(s): 472327077717600 (7) Chronic kidney disease with end stage renal disease on dialysis due to type 2 diabetes mellitus Current Visit: Yes Status: Acute Code(s): E11.22 - TYPE 2 DIABETES MELLITUS W DIABETIC CHRONIC KIDNEY DISEASE; N18.6 - END STAGE RENAL DISEASE; Z99.2 - DEPENDENCE ON RENAL DIALYSIS SNOMED Code(s): 654131302311 (8) hyponatremia secondary to chronic kidney disease (9) hypertension Plan: Continue on current medication regime ,monitoring and symptomatic treatment. Continue on 1500 mLfluid restrictions, Hemodialysis tomorrow. potential further surgery being discussed between vascular surgery, patient and family.Antibiotics as per infectious disease. Close monitoring of Accu-Cheks. Prognosis guarded given multiple complex medical issues. The impression and plan of care has been dictated as directed. : I performed a history and examination of this patient, discussed the same with the dictator. I agree with the dictator's note ,documented as a scribe. Any additional findings or plans will be noted.
--- NOTE | 2019-08-07 15:26 | P.PN ---
Subjective Progress Note Date: 08/07/19 This is a pleasant 74-year-old white female who was directly admitted from the OR yesterday where she was undergoing a left toe amputation secondary to gangrene and osteomyelitis of the left great toe and second toe. She subsequently discontinued her insulin a few days prior to the surgery during surgical day and was found to have her blood sugars exceeding 500 she was admitted for further care. I placed her on diabetic insulin sliding scale her regular home medications with with some hydration and her sugars this morning were 117 and much improvement. However I did see that she had a morning meal served so I'm thinking that surgery will be postponed until tomorrow. She currently has no complaints and is feeling well. 07/31/2019 hypoglycemic, received D50, currently nothing by mouth for surgery. Scheduled for amputation of first and second toes of the left foot today with vascular surgery. Denies chest pain, palpitations or shortness of breath. Vital signs stable. Afebrile. 08/01/2019 under amputation of left first and second toes yesterday, tolerated procedure well. Wound VAC present. Increased pain during the night but currently controlled. Scheduled for dialysis today. Vital signs stable. Consumed 50% of breakfast with no nausea vomiting or diarrhea. Denies chest pain, palpitations or shortness of breath. Denies lightheadedness, dizziness or focal deficits. 08/02/2019 pain controlled. Received hemodialysis yesterday. Evaluated by PT/OT with subacute rehab recommended at discharge. Isolated fever 100.4 X 1, normal WBC. Denies chills. afebrile. Vital signs stable. Blood sugars currently controlled. 08/05/2019 periodic fevers with low-grade fever yesterday. Wound cultures reporting MRSA, Pseudomonas, Citrobacter. Blood cultures ordered as per ID, pending. T-max 99.5. Maintained on IV Fortaz, vancomycin, Flagyl as per ID .Sodium 125, scheduled for hemodialysis tomorrow. Receiving IV iron. Consuming 75-100% with blood sugars ranging from 69-101. 08/06/2019 pain improving, wearing pillow boot, dressing appears clean dry and intact. Diet intake improving, no bowel movement. Wound Vac removed this am,necrotic changes with further surgery being discussed between family and vascular surgery. Hemodialysis scheduled for today.maintained on ceftazidime, vancomycin, Flagyl. as per infectious disease. Afebrile.denies chest pain, palpitations or shortness of breath. 08/07/2019 Patient is scheduled for BKA tomorrow. Pain controlled.vital signs stable. Denies chest pain, palpitations or shortness of breath. Denies lightheadedness dizziness or focal deficits.Blood sugars controlled> Objective - Vital Signs Vital signs: Vital Signs Temp 98.3 F 08/07/19 11:49 Pulse 66 08/07/19 11:49 Resp 20 08/07/19 11:49 BP 124/59 08/07/19 11:49 Pulse Ox 96 08/07/19 11:49 Intake & Output 08/06/19 08/07/19 08/07/19 18:59 06:59 18:59 Intake Total 600 620 Output Total 3000 Balance 600 -3000 620 Weight 82 kg 82 kg Intake: Intake, IV Titration 360 260 Amount Lactated Ringers 1,000 ml 160 @ 20 mls/hr IV .Q24H JONH Rx#:[id number] Lactated Ringers 1,000 ml 160 @ 20 mls/hr IV .Q24H JONH Rx#:[id number] Sodium Ferric Gluconat- 200 100 Sucrose 125 mg In Sodium Chloride 0.9% 100 ml @ 100 mls/hr IVPB DAILY JONH Rx#:[id number] Oral 240 360 Output: Urine 0 Hemodialysis 3000 Other: Voiding Method Toilet Toilet Toilet # Voids 0 1 # Bowel Movements 1 2 - Exam GENERAL: Sitting up in bed, alert and oriented 3, no acute distress HEENT: Head is atraumatic, normocephalic. Pupils are equal, round, and reactive to light. Sclerae anicteric. Conjunctivae are clear. Mucus membranes of the mouth are moist. Neck is supple. RESPIRATORY: Clear to auscultation. No wheezes, rales, or rhonchi. No use of accessory muscles. CARDIOVASCULAR: Regular rate and rhythm. S1 and S2 noted. No systolic or diastolic murmur auscultated. No JVD noted. No S3 or S4 noted. GASTROINTESTINAL: No distention noted. Abdomen soft and round. Normal active bowel sounds auscultated x 4 quadrants. No pain or tenderness noted upon palpation. INTEGUMENTARY: No cyanosis. No jaundice. No rashes noted. No cellulitis noted. Left foot dressing clean dry and intact. EXTREMITIES: 2+ peripheral pulses. No evidence of peripheral edema. No calf tenderness noted. NEUROLOGIC: Cranial nerves II-XII intact. PSYCHIATRIC: Awake, alert, and oriented X 3. Appropriate affect. Intact judgement and insight. Microbiology 08/04/19 16:48 Blood Blood Culture - Preliminary No Growth after 48 hours 07/31/19 16:15 Toe - Left First Gram Stain - Final 07/31/19 16:15 Toe - Left First Wound Culture - Final Pseudomonas aeruginosa Methicillin resist S. aureus Citrobacter amalonaticus 07/31/19 16:15 Toe - Left First Anaerobic Culture - Final Anaerobic Gm Negative Bacilli - Labs CBC & Chem 7: 08/02/19 06:19 08/07/19 05:25 Labs: Abnormal Lab Results - Last 24 Hours (Table) 08/02/19 08/06/19 08/06/19 Range/Units : 16:51 21:11 Sodium (137-145) mmol/L Chloride (98-107) mmol/L BUN (7-17) mg/dL Creatinine (0.52-1.04) mg/dL Glucose (74-99) mg/dL POC Glucose (mg/dL) 108 H 159 H (75-99) mg/dL Hemoglobin A1c 7.7 H (4.0-6.0) % 08/07/19 08/07/19 08/07/19 Range/Units 05:25 06:15 12:06 Sodium 132 L (137-145) mmol/L Chloride 97 L (98-107) mmol/L BUN 32 H (7-17) mg/dL Creatinine 4.72 H (0.52-1.04) mg/dL Glucose 184 H (74-99) mg/dL POC Glucose (mg/dL) 178 H 220 H (75-99) mg/dL Hemoglobin A1c (4.0-6.0) % Microbiology - Last 24 Hours (Table) 08/04/19 16:48 Blood Culture - Preliminary Blood No Growth after 48 hours Assessment and Plan Assessment: (1) Acute osteomyelitis left foot with Gangrene of left lower extremity concurrent with atherosclerosis of bypass graft, status post amputation left first and second toes. MRSA, Pseudomonas, Citrobacter Amalonaticusand anaerobic gram-negative bacilli Current Visit: Yes Status: Acute Code(s): I70.362 - ATHSCL UNSP TYPE BYPASS OF THE EXTRM W GANGRENE, LEFT LEG SNOMED Code(s): 34541734261644137 (2) Insulin-requiring or dependent type II diabetes mellitus, HGBA1C 7.7 Current Visit: Yes Status: Acute Code(s): E11.9 - TYPE 2 DIABETES MELLITUS WITHOUT COMPLICATIONS; Z79.4 - COGNOS (CURRENT) USE OF INSULIN SNOMED Code(s): 815670317 (3) Hyperglycemic crisis in diabetes mellitus Current Visit: Yes Status: Acute Code(s): E11.65 - TYPE 2 DIABETES MELLITUS WITH HYPERGLYCEMIA SNOMED Code(s): 761870809 (4) Acute on chronic renal failure, end-stage renal disease, on hemodialysis Current Visit: No Status: Acute Code(s): N17.9 - ACUTE KIDNEY FAILURE, UNSPECIFIED; N18.9 - CHRONIC KIDNEY DISEASE, UNSPECIFIED SNOMED Code(s): 264020191 (5) Anemia of chronic disease Current Visit: No Status: Acute Code(s): D63.8 - ANEMIA IN OTHER CHRONIC DISEASES CLASSIFIED ELSEWHERE SNOMED Code(s): 851121507 (6) Atherosclerosis of [place] arteries of left leg with ulceration of other part of foot Current Visit: No Status: Acute Code(s): I70.245 - ATHSCL [place] ARTERIES OF LEFT LEG W ULCERATION OTH PRT FOOT SNOMED Code(s): 021926357705944 (7) Chronic kidney disease with end stage renal disease on dialysis due to type 2 diabetes mellitus Current Visit: Yes Status: Acute Code(s): E11.22 - TYPE 2 DIABETES MELLITUS W DIABETIC CHRONIC KIDNEY DISEASE; N18.6 - END STAGE RENAL DISEASE; Z99.2 - DEPENDENCE ON RENAL DIALYSIS SNOMED Code(s): 521423005366 (8) hyponatremia secondary to chronic kidney disease (9) hypertension Plan: Continue on current medication regime ,monitoring and symptomatic treatment.Scheduled for BKA tomorrowwith surgery.Close monitoring of Accu-Cheks. Prognosis guarded given multiple complex medical issues. Hemodialysis tomorrow.[id number] mLfluid restrictions,.Continue on antibiotics as per infectious disease. The impression and plan of care has been dictated as directed. : I performed a history and examination of this patient, discussed the same with the dictator. I agree with the dictator's note ,documented as a scribe. Any additional findings or plans will be noted.
[2019-08-07 16:37] LABS: Glucose,Whole Blood 132 mg/dL (75-99)
--- NOTE | 2019-08-07 19:52 | PN ---
PROGRESS NOTE DATE OF SERVICE: 08/07/2019. REASON FOR FOLLOWUP: Left foot osteomyelitis with gangrene. INTERVAL HISTORY: The patient is currently afebrile. Patient has been breathing comfortably. The patient denies having any chest pain or cough. No nausea, no vomiting. No abdominal pain or pain to the left foot area. PHYSICAL EXAMINATION: Blood pressure is 124/59 with pulse of 66, temperature 98.3. She is 96% on room air. General description is an elderly female up in the chair in no distress. Respiratory system: Unlabored breathing. Clear to auscultation anteriorly. Heart S1, S2. Regular rate and rhythm. Abdomen soft, no tenderness. Left foot is currently dressed up. No obvious drainage on the dressing. LABS: BUN of 32, creatinine 4.72. DIAGNOSTIC IMPRESSION AND PLAN: Patient with left 1st and 2nd toe gangrene with underlying osteomyelitis. The patient culture did show multiple pathogen. Patient is currently covered with vancomycin, Fortaz and Flagyl. Possible amputation tomorrow if infected part is removed. She will likely need long-term IV antibiotic therapy. We will monitor clinical course closely. Continue supportive care. MMODL / IJN: [id number] /
[2019-08-07 20:12] LABS: Glucose,Whole Blood 137 mg/dL (75-99)
[2019-08-07] MEDS: LISINOPRIL 10 MG TAB PO SCH (20:18)
[2019-08-07] MEDS: ATORVASTATIN 80 MG TAB PO SCH (20:18)
[2019-08-08 02:13] LABS: Glucose,Whole Blood 108 mg/dL (75-99)
[2019-08-08] MEDS: KETOROLAC 30 MG/ML 1 ML VIAL IVP SCH (06:20)
[2019-08-08] MEDS: CALCIUM ACETATE 667 MG CAP PO SCH ×2 (06:25→18:48)
[2019-08-08] MEDS: LACTATED RINGERS 1,000 ML IV SCH ×2 (06:25→19:45)
[2019-08-08] MEDS: CALCIUM CARB-MAG CARB-FOLIC 1 EACH TAB PO SCH ×3 (06:25→18:47)
[2019-08-08 06:49] LABS: Glucose,Whole Blood 102 mg/dL (75-99)
[2019-08-08] MEDS: INSULIN ASPART (NovoLOG) 100 UNIT/ML VIAL SQ SCH ×4 (06:50→20:20)
[2019-08-08 07:22] LABS: Anisocytosis Slight; Basophils % (A) 0 %; Eosinophils # (A) 0.4 k/uL (0-0.7); Eosinophils % (A) 4 %; HCT 28.8 % (34.0-46.0); HGB 9.5 gm/dL (11.4-16.0); Hypochromasia Slight; Lymphocytes # (A) 0.7 k/uL (1.0-4.8); Lymphocytes % (A) 7 %; MCV 90.9 fL (80.0-100.0); Mean Platelet Volume 7.7; Monocytes # (A) 0.5 k/uL (0-1.0); Monocytes % (A) 5 %; Neutrophils # (A) 8.8 k/uL (1.3-7.7); Neutrophils % (A) 83 %; Platelet Count 249 k/uL (150-450); RBC 3.17 m/uL (3.80-5.40); RDW 16.9 % (11.5-15.5); WBC 10.6 k/uL (3.8-10.6)
[2019-08-08 07:27] LABS: Calcium 8.6 mg/dL (8.4-10.2); Potassium 4.2 mmol/L (3.5-5.1)
--- NOTE | 2019-08-08 09:18 | P.PN ---
Subjective Progress Note Date: 08/08/19 This is a pleasant 74-year-old white female who was directly admitted from the OR yesterday where she was undergoing a left toe amputation secondary to gangrene and osteomyelitis of the left great toe and second toe. She subsequently discontinued her insulin a few days prior to the surgery during surgical day and was found to have her blood sugars exceeding 500 she was admitted for further care. I placed her on diabetic insulin sliding scale her regular home medications with with some hydration and her sugars this morning were 117 and much improvement. However I did see that she had a morning meal served so I'm thinking that surgery will be postponed until tomorrow. She currently has no complaints and is feeling well. 07/31/2019 hypoglycemic, received D50, currently nothing by mouth for surgery. Scheduled for amputation of first and second toes of the left foot today with vascular surgery. Denies chest pain, palpitations or shortness of breath. Vital signs stable. Afebrile. 08/01/2019 under amputation of left first and second toes yesterday, tolerated procedure well. Wound VAC present. Increased pain during the night but currently controlled. Scheduled for dialysis today. Vital signs stable. Consumed 50% of breakfast with no nausea vomiting or diarrhea. Denies chest pain, palpitations or shortness of breath. Denies lightheadedness, dizziness or focal deficits. 08/02/2019 pain controlled. Received hemodialysis yesterday. Evaluated by PT/OT with subacute rehab recommended at discharge. Isolated fever 100.4 X 1, normal WBC. Denies chills. afebrile. Vital signs stable. Blood sugars currently controlled. 08/05/2019 periodic fevers with low-grade fever yesterday. Wound cultures reporting MRSA, Pseudomonas, Citrobacter. Blood cultures ordered as per ID, pending. T-max 99.5. Maintained on IV Fortaz, vancomycin, Flagyl as per ID .Sodium 125, scheduled for hemodialysis tomorrow. Receiving IV iron. Consuming 75-100% with blood sugars ranging from 69-101. 08/06/2019 pain improving, wearing pillow boot, dressing appears clean dry and intact. Diet intake improving, no bowel movement. Wound Vac removed this am,necrotic changes with further surgery being discussed between family and vascular surgery. Hemodialysis scheduled for today.maintained on ceftazidime, vancomycin, Flagyl. as per infectious disease. Afebrile.denies chest pain, palpitations or shortness of breath. 08/07/2019 Patient is scheduled for BKA tomorrow. Pain controlled.vital signs stable. Denies chest pain, palpitations or shortness of breath. Denies lightheadedness dizziness or focal deficits.Blood sugars controlled. 08/08/2019 receiving hemodialysis this morning. Blood sugars controlled. Scheduled for BKA today. Maintained on IV antibiotics as per infectious di ishe. Afebrile, normal WBC. Denies chest pain, palpitations or shortness of breath. Objective - Vital Signs Vital signs: Vital Signs Temp 97.4 F L 08/08/19 04:00 Pulse 66 08/08/19 04:00 Resp 18 08/08/19 04:00 BP 122/66 08/08/19 04:00 Pulse Ox 96 08/08/19 04:00 Intake & Output 08/07/19 08/08/19 08/08/19 18:59 06:59 18:59 Intake Total 860 320 Balance 860 320 Weight 82 kg 83.2 kg Intake: Intake, IV Titration 260 320 Amount Lactated Ringers 1,000 ml 160 320 @ 20 mls/hr IV .Q24H JON[facility] Rx#:[id number] Sodium Ferric Gluconat- 100 Sucrose 125 mg In Sodium Chloride 0.9% 100 ml @ 100 mls/hr IVPB DAILY JONH Rx#:[id number] Oral 600 Other: Voiding Method Toilet Toilet # Voids 2 - Exam GENERAL: Sitting up in bed, alert and oriented 3, no acute distress HEENT: Head is atraumatic, normocephalic. Pupils are equal, round, and reactive to light. Sclerae anicteric. Conjunctivae are clear. Mucus membranes of the mouth are moist. Neck is supple. RESPIRATORY: Unlabored, Clear to auscultation. No wheezes, rales, or rhonchi. CARDIOVASCULAR: Regular rate and rhythm. S1 and S2 noted. No systolic or diastolic murmur auscultated. No JVD noted. GASTROINTESTINAL: No distention noted. Abdomen soft and round. Normal active bowel sounds auscultated x 4 quadrants. No pain or tenderness noted upon palpation. INTEGUMENTARY: No cyanosis. No jaundice. No rashes noted. No cellulitis noted. Left foot dressing clean dry and intact. EXTREMITIES: 2+ peripheral pulses. No evidence of peripheral edema. No calf tenderness noted. NEUROLOGIC: Cranial nerves II-XII intact. PSYCHIATRIC: Awake, alert, and oriented X 3. Appropriate affect. Intact judgement and insight. Microbiology 08/04/19 16:48 Blood Blood Culture - Preliminary No Growth after 72 hours 07/31/19 16:15 Toe - Left First Gram Stain - Final 07/31/19 16:15 Toe - Left First Wound Culture - Final Pseudomonas aeruginosa Methicillin resist S. aureus Citrobacter amalonaticus 07/31/19 16:15 Toe - Left First Anaerobic Culture - Final Anaerobic Gm Negative Bacilli - Labs CBC & Chem 7: 08/08/19 06:30 08/08/19 06:30 Labs: Abnormal Lab Results - Last 24 Hours (Table) 08/07/19 08/07/19 08/07/19 Range/Units 12:06 16:32 20:11 RBC (3.80-5.40) m/uL Hgb (11.4-16.0) gm/dL Hct (34.0-46.0) % RDW (11.5-15.5) % Neutrophils # (1.3-7.7) k/uL Lymphocytes # (1.0-4.8) k/uL POC Glucose (mg/dL) 220 H 132 H 137 H (75-99) mg/dL 08/08/19 08/08/19 08/08/19 Range/Units 02:13 06:30 06:47 RBC 3.17 L (3.80-5.40) m/uL Hgb 9.5 L (11.4-16.0) gm/dL Hct 28.8 L (34.0-46.0) % RDW 16.9 H (11.5-15.5) % Neutrophils # 8.8 H (1.3-7.7) k/uL Lymphocytes # 0.7 L (1.0-4.8) k/uL POC Glucose (mg/dL) 108 H 102 H (75-99) mg/dL Microbiology - Last 24 Hours (Table) 08/04/19 16:48 Blood Culture - Preliminary Blood No Growth after 72 hours Assessment and Plan Assessment: (1) Acute osteomyelitis left foot with Gangrene of left lower extremity concurrent with atherosclerosis of bypass graft, status post amputation left first and second toes. MRSA, Pseudomonas, Citrobacter Amalonaticusand anaerobic gram-negative bacilli Current Visit: Yes Status: Acute Code(s): I70.362 - ATHSCL UNSP TYPE BYPASS OF THE EXTRM W GANGRENE, LEFT LEG SNOMED Code(s): 34441083458801322 (2) Insulin-requiring or dependent type II diabetes mellitus, HGBA1C 7.7 Current Visit: Yes Status: Acute Code(s): E11.9 - TYPE 2 DIABETES MELLITUS WITHOUT COMPLICATIONS; Z79.4 - CUSTODIAL (CURRENT) USE OF INSULIN SNOMED Code(s): 039906855 (3) Hyperglycemic crisis in diabetes mellitus Current Visit: Yes Status: Acute Code(s): E11.65 - TYPE 2 DIABETES MELLITUS WITH HYPERGLYCEMIA SNOMED Code(s): 102511645 (4) Acute on chronic renal failure, end-stage renal disease, on hemodialysis Current Visit: No Status: Acute Code(s): N17.9 - ACUTE KIDNEY FAILURE, UNSPECIFIED; N18.9 - CHRONIC KIDNEY DISEASE, UNSPECIFIED SNOMED Code(s): 344744966 (5) Anemia of chronic disease Current Visit: No Status: Acute Code(s): D63.8 - ANEMIA IN OTHER CHRONIC DISEASES CLASSIFIED ELSEWHERE SNOMED Code(s): 531219435 (6) Atherosclerosis of [place] arteries of left leg with ulceration of other part of foot Current Visit: No Status: Acute Code(s): I70.245 - ATHSCL [place] ARTERIES OF LEFT LEG W ULCERATION OTH PRT FOOT SNOMED Code(s): 099400550835298 (7) Chronic kidney disease with end stage renal disease on dialysis due to type 2 diabetes mellitus Current Visit: Yes Status: Acute Code(s): E11.22 - TYPE 2 DIABETES MELLITUS W DIABETIC CHRONIC KIDNEY DISEASE; N18.6 - END STAGE RENAL DISEASE; Z99.2 - DEPENDENCE ON RENAL DIALYSIS SNOMED Code(s): 394481205031 (8) hyponatremia secondary to chronic kidney disease (9) hypertension Plan: Continue on current medication regime ,monitoring and symptomatic treatment.Scheduled for BKA today .antibiotics as per ID.Close monitoring of Accu-Cheks. Hemodialysis as per nephrology. Prognosis guarded given multiple complex medical issues. The impression and plan of care has been dictated as directed. : I performed a history and examination of this patient, discussed the same with the dictator. I agree with the dictator's note ,documented as a scribe. Any additional findings or plans will be noted.
[2019-08-08] MEDS ORDERED: IV FLUID CONTINUATION 1,000 ML IV ONE (10:10)
[2019-08-08] MEDS ORDERED: ONDANSETRON 4 MG/2 ML VIAL IVP ONE (10:19)
[2019-08-08] MEDS ORDERED: MIDAZOLAM (PF) 2 MG/2 ML VIAL IV ONE (10:38)
[2019-08-08] MEDS ORDERED: PROPOFOL 10 MG/ML 20 ML VIAL IV ONE (10:50)
[2019-08-08] MEDS ORDERED: MIDAZOLAM 2 MG/2 ML VIAL ONE (10:50)
[2019-08-08] MEDS ORDERED: DEXAMETHASONE SOD PHOSPHATE 10 MG/ML 1 ML VIAL IV ONE (11:30)
[2019-08-08] MEDS ORDERED: fentaNYL (PF) 50 MCG/ML 2 ML AMP IV PRN (11:30)
--- NOTE | 2019-08-08 12:26 | P.OP ---
Date of Procedure: 08/08/19 Preoperative Diagnosis: Irreversible ischemia left lower extremity Postoperative Diagnosis: Same. Procedure(s) Performed: Left below the knee amputation. Implants: None. Anesthesia: spinal Surgeon: Faisal Vanegas Estimated Blood Loss (ml): 70 Urine output (ml): 0 Pathology: other (Left below the knee amputation) Condition: stable Disposition: floor Indications for Procedure: Patient is a 74-year-old female with a history of diabetes mellitus and dialysis-dependent renal failure who had presented with ischemic changes of her left great toe. Physical examination revealed femoral pulses be intact in the popliteal pedal pulses are absent. Patient did undergo angiogram of the left lower extremity which demonstrated a high-grade stenosis of the superficial femoral artery at the adductor canal level as well as single-vessel runoff via the peroneal artery. She did undergo an atherectomy successfully of the SFA with improved flow characteristics noted in the foot. She did undergo amputation of the great toe however small vessel disease prevented day normal healing and patient was not felt to be able to heal a transmetatarsal amputation for the reasons the great toe amputation failed to heal and thus the patient is offered a below the knee amputation. Description of Procedure: Patient was brought the upper and placed in supine position. Patient received intravenously administered antibiotics in the perioperative phase. She did receive spinal anesthesia delivered by the department anesthesiology. Patient's left lower extremity was then sterilely prepped and draped in the usual manner. Incision was made transversely across the tibia 10 cm below the tuberosity and this was extended both medially and laterally. Through the subcutaneous tissues. Hemostasis was achieved using electrocautery. The muscles of the anterior compartment were transected with the electrocautery. The periosteal tissues were elevated. Muscle groups on the medial aspect of the leg were transected with electrocautery and the tibia was then transected with a power saw. The fibula was likewise isolated and transected with a power saw. Utilizing a amputation knife the amputation was then completed and the specimen sent to pathology. The neurovascular bundle was clamped. The nerve was isolated and transected as far proximally as possible. The artery and vein were then ligated with Vicryl suture. Bleeding points were controlled with electrocautery and suture ligature where appropriate. The wound was irrigated with antibiotic containing solution. Hemostasis was judged be adequate. Fascia was reapproximated with 2-0 Vicryl suture. A drain was placed and brought from medial to lateral. Skin was closed with 2-0 nylon suture. Adaptic, 4 x 4's Curlex and Maynor wrap were applied followed by a knee immobilizer. Patient tolerated procedure well and was transferred to the recovery area in satisfactory and stable condition.
[2019-08-08] MEDS ORDERED: MORPHINE SULFATE 2 MG/ML SYRINGE IVP PRN (12:27)
--- NOTE | 2019-08-08 13:02 | P.ANPRN ---
Procedure Note - Anesthesia - Nerve Block Performed Left Adductor Canal Single Time Out Performed: Yes Date of Procedure: 08/08/19 Procedure Start Time: 10:37 Procedure Stop Time: 10:44 Location of Patient Procedure: PreOp Indication: Acute Post-Operative Pain, Requested by Surgeon Sedation Type: Sedate with meaningful contact maintained Preparation: Sterile Prep, Sterile Dressing Position: Supine Catheter: None Needle Types: Pajunk Needle Gauge: 20 Ultrasound used to visualize needle placement: Yes Ultrasound used to observe medication spread: Yes Injectate: 0.5% Ropivacaine (see comment for volume) (20 ml) Blood Aspirated: No Pain Paresthesia on Injection Noted: No Resistance on Injection: Normal Image Stored and Saved: Yes Events: Uneventful and Well Tolerated Left Popliteal Single Time Out Performed: Yes Date of Procedure: 08/08/19 Procedure Start Time: 10:45 Procedure Stop Time: 10:52 Location of Patient Procedure: PreOp Indication: Acute Post-Operative Pain, Requested by Surgeon Sedation Type: Sedate with meaningful contact maintained Preparation: Sterile Prep, Sterile Dressing Position: Right Lateral Catheter: None Needle Types: Pajunk Needle Gauge: 20 Ultrasound used to visualize needle placement: Yes Ultrasound used to observe medication spread: Yes Injectate: 0.5% Ropivacaine (see comment for volume) (15 ml) Blood Aspirated: No Pain Paresthesia on Injection Noted: No Resistance on Injection: Normal Image Stored and Saved: Yes Events: Uneventful and Well Tolerated
[2019-08-08 16:38] LABS: Glucose,Whole Blood 124 mg/dL (75-99)
[2019-08-08] MEDS: CYANOCOBALAMIN 500 MCG TAB PO SCH (18:48)
[2019-08-08] MEDS: metroNIDAZOLE 500 MG TAB PO SCH ×3 (18:48→20:20)
[2019-08-08] MEDS: CITALOPRAM HYDROBROMIDE 20 MG TAB PO SCH (18:48)
[2019-08-08] MEDS: FOLIC ACID-VIT B COMPLEX-VIT C 1 CAP PO SCH (18:48)
[2019-08-08] MEDS: FUROSEMIDE 40 MG TAB PO SCH (18:49)
[2019-08-08] MEDS: CHOLECALCIFEROL 1,000 UNIT TAB PO SCH (18:49)
[2019-08-08] MEDS: INSULIN DETEMIR (LEVEMIR) 100 UNIT/ML SYR SQ SCH (18:51)
[2019-08-08 20:00] LABS: Glucose,Whole Blood 210 mg/dL (75-99)
[2019-08-08] MEDS: LISINOPRIL 10 MG TAB PO SCH (20:19)
[2019-08-08] MEDS: ATORVASTATIN 80 MG TAB PO SCH (20:20)
[2019-08-08 22:47] LABS: Glucose,Whole Blood 219 mg/dL (75-99)
--- NOTE | 2019-08-08 23:38 | PN ---
PROGRESS NOTE DATE OF SERVICE: 08/08/2019. REASON FOR FOLLOWUP: Left 1st and 2nd and osteomyelitis. INTERVAL HISTORY: The patient is currently afebrile. Patient has been breathing comfortably. The patient is status post left [id number] amputation. The patient was seen in the postop recovering from the anesthesia. The patient denies any pain to the operative site. No chest pain. No cough. No abdominal pain and no diarrhea. PHYSICAL EXAMINATION: Blood pressure 131/60 with a pulse of 82, temperature is 97.7. She is 93% on room air. General description is an elderly female lying in bed in no distress respiratory system: Unlabored breathing. Clear to auscultation anteriorly. Heart S1, S2. Regular rate and rhythm. ABDOMEN: Soft. No tenderness. LABS: Hemoglobin 9.5, white count 10.7, BUN of 28, creatinine 4.75. DIAGNOSTIC IMPRESSION AND PLAN: Patient with left 1st and 2nd toe osteomyelitis with multidrug resistant pathogen including MRSA, Pseudomonas with subsequent necrotic changes and status post left below- the-knee amputation as infected port has been removed and the patient bacteremia. She would not need to be on long-term antibiotic therapy. Continue with IV vancomycin for this and Flagyl perioperatively. Continue supportive care. MMODL / IJN: [id number] /
[2019-08-09 02:04] LABS: Glucose,Whole Blood 292 mg/dL (75-99)
[2019-08-09] MEDS: LACTATED RINGERS 1,000 ML IV SCH ×2 (06:07→12:04)
[2019-08-09 06:08] LABS: Glucose,Whole Blood 236 mg/dL (75-99)
[2019-08-09] MEDS: INSULIN ASPART (NovoLOG) 100 UNIT/ML VIAL SQ SCH ×4 (06:59→20:34)
[2019-08-09] MEDS: CALCIUM CARB-MAG CARB-FOLIC 1 EACH TAB PO SCH ×3 (07:00→17:56)
[2019-08-09] MEDS: CALCIUM ACETATE 667 MG CAP PO SCH ×2 (07:00→17:12)
[2019-08-09] MEDS: CLOPIDOGREL 75 MG TAB PO SCH (09:19)
[2019-08-09] MEDS: ASPIRIN 81 MG PO SCH (09:19)
[2019-08-09] MEDS: CHOLECALCIFEROL 1,000 UNIT TAB PO SCH (09:19)
[2019-08-09] MEDS: metroNIDAZOLE 500 MG TAB PO SCH ×3 (09:19→20:34)
[2019-08-09] MEDS: CYANOCOBALAMIN 500 MCG TAB PO SCH (09:19)
[2019-08-09] MEDS: FOLIC ACID-VIT B COMPLEX-VIT C 1 CAP PO SCH (09:19)
[2019-08-09] MEDS: INSULIN DETEMIR (LEVEMIR) 100 UNIT/ML SYR SQ SCH (09:20)
[2019-08-09 09:30] LABS: Glucose,Whole Blood 263 mg/dL (75-99)
--- NOTE | 2019-08-09 11:29 | CDI ---
Documentation Clarification Form Date: 08/09/2019 11:13:37 AM From: Astrid MadridROBERT garcia, CCDS Admit Date: 08/01/2019 9:22:00 AM Patient Name: Margarita Bloom Visit Number: [id number] Discharge Date: ATTENTION: The Clinical Documentation Specialists (CDI) and [facility] Coding Staff appreciate your assistance in clarifying documentation. Please respond to the clarification below the line at the bottom and electronically sign. The CDI & [facility] Coding staff will review the response and follow-up if needed. Please note: Queries are made part of the Legal Health Record. If you have any questions, please contact the author of this message via ITS. Dr. Bibiana Lewis: Per the 08/03 & 08/04 nephrology progress notes: "Likely congestive heart failure. Improved." is documented without further specificity. History/Risk Factors: ESRD on hemodialysis, DM II, Anemia of CKD, Iron deficiency anemia, CAD status post coronary stent, Hypertension, Hyperlipidemia, GA, Peripheral neuropathy bilateral lower extremities, Frequent UTIs & Depression. Clinical Indicators: Presented for amputation of toes on left foot due to gangrene & osteomyelitis. Subsequently required amputation of left leg below knee. VS: P 87 - 55* - 82 - 73; R 16 - 20; BP 180/85 - 123/56 - 88/51 - 117/59; PO 94 RA - 91 - 92. BNP: not done Echocardiogram Results: No recent ECHO. Chest X Ray: No CXR Treatment: Receiving home dose of po Lasix 40 mg daily. IV antibiotics, IV Decadron, IV Zofran, Insulin sq, IV Dextrose/Water bolus, IV Toradol, IV Ferric Na Gluconate, IV Ms. In your professional opinion, can you please clarify the acuity and type of CHF if known or document if ruled out? Congestive Heart Failure ruled out Congestive Heart Failure ruled in: Systolic Heart Failure: o Acute o Chronic o Acute on Chronic Diastolic Heart Failure: o Acute o Chronic o Acute on Chronic Systolic & Diastolic Heart Failure: o Acute o Chronic o Acute on Chronic Heart Failure Unable to Determine Other, please specify____acute on chronic systolic CHF secondary to volume pverlaod (Last Revision: February 2018) MTDD
[2019-08-09 11:58] LABS: Glucose,Whole Blood 269 mg/dL (75-99)
[2019-08-09] MEDS: CITALOPRAM HYDROBROMIDE 20 MG TAB PO SCH (12:07)
[2019-08-09] MEDS: FUROSEMIDE 40 MG TAB PO SCH (12:07)
--- NOTE | 2019-08-09 15:35 | P.PN ---
Subjective Progress Note Date: 08/09/19 This is a pleasant 74-year-old white female who was directly admitted from the OR yesterday where she was undergoing a left toe amputation secondary to gangrene and osteomyelitis of the left great toe and second toe. She subsequently discontinued her insulin a few days prior to the surgery during surgical day and was found to have her blood sugars exceeding 500 she was admitted for further care. I placed her on diabetic insulin sliding scale her regular home medications with with some hydration and her sugars this morning were 117 and much improvement. However I did see that she had a morning meal served so I'm thinking that surgery will be postponed until tomorrow. She currently has no complaints and is feeling well. 07/31/2019 hypoglycemic, received D50, currently nothing by mouth for surgery. Scheduled for amputation of first and second toes of the left foot today with vascular surgery. Denies chest pain, palpitations or shortness of breath. Vital signs stable. Afebrile. 08/01/2019 under amputation of left first and second toes yesterday, tolerated procedure well. Wound VAC present. Increased pain during the night but currently controlled. Scheduled for dialysis today. Vital signs stable. Consumed 50% of breakfast with no nausea vomiting or diarrhea. Denies chest pain, palpitations or shortness of breath. Denies lightheadedness, dizziness or focal deficits. 08/02/2019 pain controlled. Received hemodialysis yesterday. Evaluated by PT/OT with subacute rehab recommended at discharge. Isolated fever 100.4 X 1, normal WBC. Denies chills. afebrile. Vital signs stable. Blood sugars currently controlled. 08/05/2019 periodic fevers with low-grade fever yesterday. Wound cultures reporting MRSA, Pseudomonas, Citrobacter. Blood cultures ordered as per ID, pending. T-max 99.5. Maintained on IV Fortaz, vancomycin, Flagyl as per ID .Sodium 125, scheduled for hemodialysis tomorrow. Receiving IV iron. Consuming 75-100% with blood sugars ranging from 69-101. 08/06/2019 pain improving, wearing pillow boot, dressing appears clean dry and intact. Diet intake improving, no bowel movement. Wound Vac removed this am,necrotic changes with further surgery being discussed between family and vascular surgery. Hemodialysis scheduled for today.maintained on ceftazidime, vancomycin, Flagyl. as per infectious disease. Afebrile.denies chest pain, palpitations or shortness of breath. 08/07/2019 Patient is scheduled for BKA tomorrow. Pain controlled.vital signs stable. Denies chest pain, palpitations or shortness of breath. Denies lightheadedness dizziness or focal deficits.Blood sugars controlled. 08/08/2019 receiving hemodialysis this morning. Blood sugars controlled. Scheduled for BKA today. Maintained on IV antibiotics as per infectious di sease. Afebrile, normal WBC. Denies chest pain, palpitations or shortness of breath. 08/09/2019 status post left BKA, tolerated well. Dressing clean dry and intact. Pain controlled. Vital signs stable, maintaining O2 sats in the 90s on room air. Continues on ceftazidime, Flagyl, vancomycin as per infectious disease. Afebrile. Hyperglycemic, blood sugars in the 200. Denies chest pain, p alpitations or shortness of breath. Denies lightheadedness, dizziness or focal deficits. Objective - Vital Signs Vital signs: Vital Signs Temp 97.8 F 08/09/19 09:00 Pulse 69 08/09/19 12:00 Resp 18 08/09/19 12:00 BP 160/68 08/09/19 12:00 Pulse Ox 97 08/09/19 12:00 Intake & Output 08/08/19 08/09/19 08/09/19 18:59 06:59 18:59 Intake Total 590 400 118 Output Total 3200 Balance -2610 400 118 Weight 79 kg Intake: IV 250 Intake, IV Titration 100 160 Amount Lactated Ringers 1,000 ml 160 @ 20 mls/hr IV .Q24H [facility] Rx#:[id number] cefTAZidime 1 gm In 100 Sodium Chloride 0.9% 50 ml @ 100 mls/hr IVPB Q24H [facility] Rx#:[id number] Oral 240 240 118 Output: Hemodialysis 3000 Estimated Blood Loss 200 Other: Voiding Method Toilet # Voids 0 - Exam GENERAL: Sitting up in bed, alert and oriented 3, no acute distress HEENT: Head is atraumatic, normocephalic. Pupils are equal, round, and reactive to light. Sclerae anicteric. Conjunctivae are clear. Mucus membranes of the mouth are moist. Neck is supple. RESPIRATORY: Unlabored, Clear to auscultation. No wheezes, rales, or rhonchi. CARDIOVASCULAR: Regular rate and rhythm. S1 and S2 noted. No systolic or diastolic murmur auscultated. No JVD noted. GASTROINTESTINAL: No distention noted. Abdomen soft and round. Normal active bowel sounds auscultated x 4 quadrants. No pain or tenderness noted upon palpation. INTEGUMENTARY: No cyanosis. No jaundice. No rashes noted. No cellulitis noted. EXTREMITIES: Left BKA, dressing clean dry and intact NEUROLOGIC: Cranial nerves II-XII intact. PSYCHIATRIC: Awake, alert, and oriented X 3. Appropriate affect. Intact judgement and insight. Microbiology 08/04/19 16:48 Blood Blood Culture - Preliminary No Growth after 96 hours 07/31/19 16:15 Toe - Left First Gram Stain - Final 07/31/19 16:15 Toe - Left First Wound Culture - Final Pseudomonas aeruginosa Methicillin resist S. aureus Citrobacter amalonaticus 07/31/19 16:15 Toe - Left First Anaerobic Culture - Final Anaerobic Gm Negative Bacilli - Labs CBC & Chem 7: 08/08/19 06:30 08/08/19 06:30 Labs: Abnormal Lab Results - Last 24 Hours (Table) 08/08/19 08/08/19 08/08/19 Range/Units 16:36 19:59 22:46 POC Glucose (mg/dL) 124 H 210 H 219 H (75-99) mg/dL 08/09/19 08/09/19 08/09/19 Range/Units 02:03 06:07 : POC Glucose (mg/dL) 292 H 236 H 263 H (75-99) mg/dL 08/09/19 Range/Units 11:35 POC Glucose (mg/dL) 269 H (75-99) mg/dL Microbiology - Last 24 Hours (Table) 08/04/19 16:48 Blood Culture - Preliminary Blood No Growth after 96 hours Assessment and Plan Assessment: (1) Acute osteomyelitis left foot with Gangrene of left lower extremity concurrent with atherosclerosis of bypass graft, status post amputation left first and second toes. MRSA, Pseudomonas, Citrobacter Amalonaticusand anaerobic gram-negative bacilli. Status post left BKA Current Visit: Yes Status: Acute Code(s): I70.362 - ATHSCL UNSP TYPE BYPASS OF THE EXTRM W GANGRENE, LEFT LEG SNOMED Code(s): 40764105465802388 (2) Insulin-requiring or dependent type II diabetes mellitus, HGBA1C 7.7 Current Visit: Yes Status: Acute Code(s): E11.9 - TYPE 2 DIABETES MELLITUS WITHOUT COMPLICATIONS; Z79.4 - CORRECTION (CURRENT) USE OF INSULIN SNOMED Code(s): 062529136 (3) Hyperglycemic crisis in diabetes mellitus Current Visit: Yes Status: Acute Code(s): E11.65 - TYPE 2 DIABETES MELLITUS WITH HYPERGLYCEMIA SNOMED Code(s): 120804450 (4) Acute on chronic renal failure, end-stage renal disease, on hemodialysis Current Visit: No Status: Acute Code(s): N17.9 - ACUTE KIDNEY FAILURE, UNSPECIFIED; N18.9 - CHRONIC KIDNEY DISEASE, UNSPECIFIED SNOMED Code(s): 856874135 (5) Anemia of chronic disease Current Visit: No Status: Acute Code(s): D63.8 - ANEMIA IN OTHER CHRONIC DISEASES CLASSIFIED ELSEWHERE SNOMED Code(s): 257499129 (6) Atherosclerosis of [place] arteries of left leg with ulceration of other part of foot Current Visit: No Status: Acute Code(s): I70.245 - ATHSCL [place] ARTERIES OF LEFT LEG W ULCERATION OTH PRT FOOT SNOMED Code(s): 895403499123766 (7) Chronic kidney disease with end stage renal disease on dialysis due to type 2 diabetes mellitus Current Visit: Yes Status: Acute Code(s): E11.22 - TYPE 2 DIABETES MELLITUS W DIABETIC CHRONIC KIDNEY DISEASE; N18.6 - END STAGE RENAL DISEASE; Z99.2 - DEPENDENCE ON RENAL DIALYSIS SNOMED Code(s): 030128357697 (8) hyponatremia secondary to chronic kidney disease (9) hypertension Plan: Continue on current medication regime ,monitoring and symptomatic treatment.antibiotics as per ID. aggressive pulmonary toileting with incentive spirometer reinforced. Levemir insulin increased ,close monitoring of Accu-C heks. Hemodialysis as per nephrology. Prognosis guarded given multiple complex medical issues. The impression and plan of care has been dictated as directed. : I performed a history and examination of this patient, discussed the same with the dictator. I agree with the dictator's note ,documented as a scribe. Any additional findings or plans will be noted.
[2019-08-09] MEDS ORDERED: INSULIN DETEMIR (LEVEMIR) 100 UNIT/ML SYR SQ ONE (15:36)
[2019-08-09 16:49] LABS: Glucose,Whole Blood 211 mg/dL (75-99)
--- NOTE | 2019-08-09 17:02 | P.PN ---
Subjective Progress Note Date: 08/09/19 Principal diagnosis: Status post amputation left first and second toes. Patient is status post left below the knee amputation performed yesterday. Patient indicates that her pain is very well controlled. Nursing reports that the dressings had been accidentally's placed/removed and the wound looked good. The wound was then redressed. She has good range of motion of the hip and knee joint. She was seen by orthotic team. Currently the patient is status post left izpby-tnh-qiti amputation, postop day #1. Patient appears stable. We'll await transfer to rehab. Continue physical therapy Objective - Vital Signs Vital signs: Vital Signs Temp 96.8 F L 08/09/19 15:25 Pulse 71 08/09/19 15:25 Resp 18 08/09/19 15:25 BP 154/66 08/09/19 15:25 Pulse Ox 99 08/09/19 15:25 Intake & Output 08/08/19 08/09/19 08/09/19 18:59 06:59 18:59 Intake Total 590 400 498 Output Total 3200 Balance -2610 400 498 Weight 79 kg Intake: IV 250 Intake, IV Titration 100 160 140 Amount Lactated Ringers 1,000 ml 160 140 @ 20 mls/hr IV .Q24H [facility] Rx#:[id number] cefTAZidime 1 gm In 100 Sodium Chloride 0.9% 50 ml @ 100 mls/hr IVPB Q24H [facility] Rx#:[id number] Oral 240 240 358 Output: Hemodialysis 3000 Estimated Blood Loss 200 Other: Voiding Method Toilet # Voids 0 1 # Bowel Movements 1 - Labs CBC & Chem 7: 08/08/19 06:30 08/08/19 06:30 Labs: Abnormal Lab Results - Last 24 Hours (Table) 08/08/19 08/08/19 08/09/19 Range/Units 19:59 22:46 02:03 POC Glucose (mg/dL) 210 H 219 H 292 H (75-99) mg/dL 08/09/19 08/09/19 08/09/19 Range/Units 06:07 : 11:35 POC Glucose (mg/dL) 236 H 263 H 269 H (75-99) mg/dL 08/09/19 Range/Units 16:43 POC Glucose (mg/dL) 211 H (75-99) mg/dL Microbiology - Last 24 Hours (Table) 08/04/19 16:48 Blood Culture - Preliminary Blood No Growth after 96 hours
[2019-08-09] MEDS ORDERED: VANCOMYCIN 1,250 MG in SODIUM CHLORIDE 0.9% 250 ML IVPB ONE (18:00)
--- NOTE | 2019-08-09 19:05 | PN ---
PROGRESS NOTE DATE OF SERVICE: 08/09/2019 REASON FOR FOLLOWUP: Left first and second toe wet gangrene and osteomyelitis. INTERVAL HISTORY: The patient is currently afebrile. The patient has been breathing comfortably. The patient denies having any chest pain or any cough. No nausea, no vomiting. No abdominal pain or any pain to the left BKA stump. PHYSICAL EXAMINATION: Blood pressure 154/66, pulse of 71, temperature 96.8. She is 99% on room air. General description is an elderly female lying in bed in no distress. RESPIRATORY SYSTEM: Unlabored breathing. Clear to auscultation anteriorly. HEART: S1, S2. Regular rate and rhythm. ABDOMEN: Soft. No tenderness. Left BKA stump is currently dressed up drainage on the dressing. LABS: Blood culture has been negative. DIAGNOSTIC IMPRESSION AND PLAN: Patient with left first and second toe wet gangrene with secondary osteomyelitis. Patient is status post amputation of those toes followed by left [id number]-[id number] amputation. As the patient was not bacteremic and the infected part has been she will not need to be on long-term IV antibiotic therapy. Antibiotic can be safely discontinued. Will monitor the patient closely off antibiotic therapy. Continue with supportive care. MMODL / IJN: [id number] /
[2019-08-09 20:32] LABS: Glucose,Whole Blood 171 mg/dL (75-99)
[2019-08-09] MEDS: ATORVASTATIN 80 MG TAB PO SCH (20:34)
[2019-08-09] MEDS: LISINOPRIL 10 MG TAB PO SCH (20:34)
--- NOTE | 2019-08-09 21:54 | PN ---
PROGRESS NOTE Patient is seen for followup for end-stage renal disease. She was dialyzed yesterday. Patient tolerated her treatment well. She is status post a left BKA, currently doing fairly well. PHYSICAL EXAMINATION: Blood pressure was 154/66, heart rate 71 per minute. Patient is afebrile. Examination of the heart S1, S2. Examination of the lungs, bilateral breath sounds are heard. Abdomen is soft, nontender. Examination of lower extremities shows left BKA, currently dressed. No significant edema noted right lower extremity. LABS: Not available from today. ASSESSMENT: 1. End-stage renal disease, on hemodialysis on a Monday, , Monday schedule. We will arrange for hemodialysis in a.m. 2. Peripheral vascular disease and gangrene on the right side in the left toe, status post left BKA. 3. Chronic kidney disease, mineral bone disorder. 4. Anemia of chronic disease. 5. Type 2 diabetes. 6. Coronary artery disease with history of coronary artery bypass surgery. PLAN: Hemodialysis in a.m. MMODL / RAJESHN: [id number] /
[2019-08-10 02:32] LABS: Glucose,Whole Blood 105 mg/dL (75-99)
[2019-08-10] MEDS: LACTATED RINGERS 1,000 ML IV SCH ×3 (06:10→17:46)
[2019-08-10 06:15] LABS: Glucose,Whole Blood 62 mg/dL (75-99)
[2019-08-10] MEDS: INSULIN ASPART (NovoLOG) 100 UNIT/ML VIAL SQ SCH ×4 (06:15→20:39)
[2019-08-10] MEDS: INSULIN DETEMIR (LEVEMIR) 100 UNIT/ML SYR SQ SCH (06:15)
[2019-08-10 06:30] LABS: Anisocytosis Slight; Basophils # (A) 0.1 k/uL (0-0.2); Basophils % (A) 1 %; Eosinophils # (A) 0.4 k/uL (0-0.7); Eosinophils % (A) 3 %; HCT 30.1 % (34.0-46.0); HGB 9.5 gm/dL (11.4-16.0); Hypochromasia Moderate; Lymphocytes # (A) 1.9 k/uL (1.0-4.8); Lymphocytes % (A) 12 %; MCH 29.5 pg (25.0-35.0); MCHC 31.5 g/dL (31.0-37.0); MCV 93.7 fL (80.0-100.0); Mean Platelet Volume 7.1; Monocytes % (A) 6 %; Neutrophils # (A) 12.2 k/uL (1.3-7.7); Neutrophils % (A) 77 %; Platelet Count 293 k/uL (150-450); RBC 3.21 m/uL (3.80-5.40); RDW 17.6 % (11.5-15.5); WBC 15.8 k/uL (3.8-10.6)
[2019-08-10 06:36] LABS: Glucose,Whole Blood 70 mg/dL (75-99)
[2019-08-10 06:49] LABS: Calcium 9.2 mg/dL (8.4-10.2); Potassium 4.9 mmol/L (3.5-5.1)
[2019-08-10] MEDS: CALCIUM ACETATE 667 MG CAP PO SCH ×2 (06:54→17:39)
[2019-08-10] MEDS: CALCIUM CARB-MAG CARB-FOLIC 1 EACH TAB PO SCH ×3 (06:54→18:45)
[2019-08-10] MEDS: CYANOCOBALAMIN 500 MCG TAB PO SCH (08:58)
[2019-08-10] MEDS: CHOLECALCIFEROL 1,000 UNIT TAB PO SCH (08:58)
[2019-08-10] MEDS: CLOPIDOGREL 75 MG TAB PO SCH (08:58)
[2019-08-10] MEDS: metroNIDAZOLE 500 MG TAB PO SCH ×3 (08:58→20:39)
[2019-08-10] MEDS: FOLIC ACID-VIT B COMPLEX-VIT C 1 CAP PO SCH (08:58)
[2019-08-10] MEDS: ASPIRIN 81 MG PO SCH (08:58)
--- NOTE | 2019-08-10 09:09 | P.PN ---
Subjective Progress Note Date: 08/10/19 Principal diagnosis: This is a 74-year-old female with ESRD on dialysis Monday She had left first and second toe amputation, and then had a below-knee amputation and is doing well postop. This morning she feels fairly well. She denies any fever chills cough shortness of breath nausea vomiting. No abdominal pain. She says she is able to ambulate with a walker. She has a bandage on her left foot Her last dialysis was on 08/07/2019 on Monday and she is scheduled for dialysis today Monday to be back on her scheduled Objective - Vital Signs Vital signs: Vital Signs Temp 97.5 F L 08/10/19 04:00 Pulse 64 08/10/19 04:00 Resp 18 08/10/19 04:00 BP 115/58 08/10/19 04:00 Pulse Ox 96 08/10/19 04:00 Intake & Output 08/09/19 08/10/19 08/10/19 18:59 06:59 18:59 Intake Total 738 160 240 Balance 738 160 240 Weight 78 kg Intake: Intake, IV Titration 140 160 Amount Lactated Ringers 1,000 ml 140 160 @ 20 mls/hr IV .Q24H [facility] Rx#:[id number] Oral 598 240 Other: Voiding Method Toilet # Voids 1 # Bowel Movements 1 Awake alert oriented comfortable on room air HEENT no JVP neck is supple no facial asymmetry Lungs clear to auscultation good air entry bilaterally Heart sounds are unremarkable for any murmur rub gallop Abdomen soft nontender Extremity exam was BKA on the left. No edema on the right Neurologically awake alert oriented but generalized weakness - Labs CBC & Chem 7: 08/10/19 05:59 08/10/19 05:59 Labs: Abnormal Lab Results - Last 24 Hours (Table) 08/09/19 08/09/19 08/09/19 Range/Units : 11:35 16:43 WBC (3.8-10.6) k/uL RBC (3.80-5.40) m/uL Hgb (11.4-16.0) gm/dL Hct (34.0-46.0) % RDW (11.5-15.5) % Neutrophils # (1.3-7.7) k/uL Sodium (137-145) mmol/L Chloride (98-107) mmol/L BUN (7-17) mg/dL Creatinine (0.52-1.04) mg/dL Glucose (74-99) mg/dL POC Glucose (mg/dL) 263 H 269 H 211 H (75-99) mg/dL 08/09/19 08/10/19 08/10/19 Range/Units 20:31 02:31 05:59 WBC 15.8 H (3.8-10.6) k/uL RBC 3.21 L (3.80-5.40) m/uL Hgb 9.5 L (11.4-16.0) gm/dL Hct 30.1 L (34.0-46.0) % RDW 17.6 H (11.5-15.5) % Neutrophils # 12.2 H (1.3-7.7) k/uL Sodium (137-145) mmol/L Chloride (98-107) mmol/L BUN (7-17) mg/dL Creatinine (0.52-1.04) mg/dL Glucose (74-99) mg/dL POC Glucose (mg/dL) 171 H 105 H (75-99) mg/dL 08/10/19 08/10/19 08/10/19 Range/Units 05:59 06:14 06:35 WBC (3.8-10.6) k/uL RBC (3.80-5.40) m/uL Hgb (11.4-16.0) gm/dL Hct (34.0-46.0) % RDW (11.5-15.5) % Neutrophils # (1.3-7.7) k/uL Sodium 134 L (137-145) mmol/L Chloride 96 L (98-107) mmol/L BUN 42 H (7-17) mg/dL Creatinine 5.60 H (0.52-1.04) mg/dL Glucose 50 L (74-99) mg/dL POC Glucose (mg/dL) 62 L 70 L (75-99) mg/dL Microbiology - Last 24 Hours (Table) 08/04/19 16:48 Blood Culture - Preliminary Blood No Growth after 120 hours Assessment and Plan Assessment: Impression 1. ESRD on dialysis Monday. Stable. To be dialyzed today 2. Euvolemic no evidence of congestive heart failure. Improved 3. Status post amputation of left first and second toe on 07/31/2019. and subsequent left BKA dated 08/08/2019 4. Anemia of ESRD with hemoglobin going down from 14.9 on 07/30/2019 to 9 .4. and is stable at 9.5 as of this morning 08/10/2019. No obvious evidence of any GI bleed. 5. Mild hyponatremia secondary to ESRD and excess free fluid. 6. Iron deficiency and saturation 9.4% dated 08/02 Recommendation 1. Continue same medications. 2. hemodialysis today. 3. Monitor CBC every third or fourth day. 4. Monitor calcium phosphorus on a weekly basis 5. Physiotherapy as per primary physician, and surgical recommendation
[2019-08-10 11:57] LABS: Glucose,Whole Blood 176 mg/dL (75-99)
[2019-08-10] MEDS: FUROSEMIDE 40 MG TAB PO SCH (11:59)
[2019-08-10] MEDS: CITALOPRAM HYDROBROMIDE 20 MG TAB PO SCH (11:59)
[2019-08-10 17:08] LABS: Glucose,Whole Blood 95 mg/dL (75-99)
[2019-08-10 20:22] LABS: Glucose,Whole Blood 184 mg/dL (75-99)
[2019-08-10] MEDS: ATORVASTATIN 80 MG TAB PO SCH (20:39)
[2019-08-10] MEDS: LISINOPRIL 10 MG TAB PO SCH (20:41)
[2019-08-11 02:04] LABS: Glucose,Whole Blood 199 mg/dL (75-99)
--- NOTE | 2019-08-11 02:10 | P.PN ---
Subjective Progress Note Date: 08/10/19 Principal diagnosis: Status post left BKA This is a pleasant 74-year-old white female who was directly admitted from the OR yesterday where she was undergoing a left toe amputation secondary to gangrene and osteomyelitis of the left great toe and second toe. She subsequently discontinued her insulin a few days prior to the surgery during surgical day and was found to have her blood sugars exceeding 500 she was admitted for further care. I placed her on diabetic insulin sliding scale her regular home medications with with some hydration and her sugars this morning were 117 and much improvement. However I did see that she had a morning meal served so I'm thinking that surgery will be postponed until tomorrow. She currently has no complaints and is feeling well. 07/31/2019 hypoglycemic, received D50, currently nothing by mouth for surgery. Scheduled for amputation of first and second toes of the left foot today with vascular surgery. Denies chest pain, palpitations or shortness of breath. Vital signs stable. Afebrile. 08/01/2019 under amputation of left first and second toes yesterday, tolerated procedure well. Wound VAC present. Increased pain during the night but currently controlled. Scheduled for dialysis today. Vital signs stable. Consumed 50% of breakfast with no nausea vomiting or diarrhea. Denies chest pain, palpitations or shortness of breath. Denies lightheadedness, dizziness or focal deficits. 08/02/2019 pain controlled. Received hemodialysis yesterday. Evaluated by PT/OT with subacute rehab recommended at discharge. Isolated fever 100.4 X 1, normal WBC. Denies chills. afebrile. Vital signs stable. Blood sugars curren tly controlled. 08/05/2019 periodic fevers with low-grade fever yesterday. Wound cultures reporting MRSA, Pseudomonas, Citrobacter. Blood cultures ordered as per ID, pending. T-max 99.5. Maintained on IV Fortaz, vancomycin, Flagyl as per ID .Sodium 125, scheduled for hemodialysis tomorrow. Receiving IV iron. Consuming 75-100% with blood sugars ranging from 69-101. 08/06/2019 pain improving, wearing pillow boot, dressing appears clean dry and intact. Diet intake improving, no bowel movement. Wound Vac removed this am,necrotic changes with further surgery being discussed between family and vascular surgery. Hemodialysis scheduled for today.maintained on ceftazidime, vancomycin, Flagyl. as per infectious disease. Afebrile.denies chest pain, palpitations or shortness of breath. 08/07/2019 Patient is scheduled for BKA tomorrow. Pain controlled.vital signs stable. Denies chest pain, palpitations or shortness of breath. Denies lightheadedness dizziness or focal deficits.Blood sugars controlled. 08/08/2019 receiving hemodialysis this morning. Blood sugars controlled. Sched uled for BKA today. Maintained on IV antibiotics as per infectious disease. Afebrile, normal WBC. Denies chest pain, palpitations or shortness of breath. 08/09/2019 status post left BKA, tolerated well. Dressing clean dry and intact. Pain controlled. Vital signs stable, maintaining O2 sats in the 90s on room air. Continues on ceftazidime, Flagyl, vancomycin as per infectious disease. Afebrile. Hyperglycemic, blood sugars in the 200. Denies chest pain, palpitations or shortness of breath. Denies lightheadedness, dizziness or focal deficits. 08/10/2019 Patient's left BKA stump is clean and no signs of infection. Currently patient is getting hemodialysis. Lying in the bed comfortably and saturating well on room air. Continues to be on antibiotics in the form of vancomycin, ceftazidime and Flagyl as per ID recommendations. WBC increased to 15.8 Blood sugars are fairly controlled. No complaints of chest pain or shortness of breath. No nausea vomiting or abdominal pain. No diarrhea. Current medications reviewed. Objective - Vital Signs Vital signs: Vital Signs Temp 98.0 F 08/10/19 17:53 Pulse 69 08/10/19 17:53 Resp 18 08/10/19 17:53 BP 120/59 08/10/19 17:53 Pulse Ox 95 08/10/19 15:39 Intake & Output 08/10/19 08/10/19 08/11/19 06:59 18:59 06:59 Intake Total 160 640 Output Total 2250 Balance 160 -1610 Weight 78 kg Intake: Intake, IV Titration 160 160 Amount Lactated Ringers 1,000 ml 160 160 @ 20 mls/hr IV .Q24H [facility] Rx#:[id number] Oral 480 Output: Hemodialysis 2250 Other: Voiding Method Toilet # Voids 3 # Bowel Movements 1 - Exam GENERAL: Sitting up in bed, alert and oriented 3, no acute distress HEENT: Head is atraumatic, normocephalic. Pupils are equal, round, and reactive to light. Sclerae anicteric. Conjunctivae are clear. Mucus membranes of the mouth are moist. Neck is supple. RESPIRATORY: Unlabored, Clear to auscultation. No wheezes, rales, or rhonchi. CARDIOVASCULAR: Regular rate and rhythm. S1 and S2 noted. No systolic or diastolic murmur auscultated. No JVD noted. GASTROINTESTINAL: No distention noted. Abdomen soft and round. Normal active bowel sounds auscultated x 4 quadrants. No pain or tenderness noted upon palpation. INTEGUMENTARY: No cyanosis. No jaundice. No rashes noted. No cellulitis noted. EXTREMITIES: Left BKA, dressing clean dry and intact NEUROLOGIC: Cranial nerves II-XII intact. PSYCHIATRIC: Awake, alert, and oriented X 3. Appropriate affect. Intact judgement and insight. - Labs CBC & Chem 7: 08/10/19 05:59 08/10/19 05:59 Labs: Abnormal Lab Results - Last 24 Hours (Table) 08/09/19 08/10/19 08/10/19 Range/Units 20:31 02:31 05:59 WBC 15.8 H (3.8-10.6) k/uL RBC 3.21 L (3.80-5.40) m/uL Hgb 9.5 L (11.4-16.0) gm/dL Hct 30.1 L (34.0-46.0) % RDW 17.6 H (11.5-15.5) % Neutrophils # 12.2 H (1.3-7.7) k/uL Sodium (137-145) mmol/L Chloride (98-107) mmol/L BUN (7-17) mg/dL Creatinine (0.52-1.04) mg/dL Glucose (74-99) mg/dL POC Glucose (mg/dL) 171 H 105 H (75-99) mg/dL 08/10/19 08/10/19 08/10/19 Range/Units 05:59 06:14 06:35 WBC (3.8-10.6) k/uL RBC (3.80-5.40) m/uL Hgb (11.4-16.0) gm/dL Hct (34.0-46.0) % RDW (11.5-15.5) % Neutrophils # (1.3-7.7) k/uL Sodium 134 L (137-145) mmol/L Chloride 96 L (98-107) mmol/L BUN 42 H (7-17) mg/dL Creatinine 5.60 H (0.52-1.04) mg/dL Glucose 50 L (74-99) mg/dL POC Glucose (mg/dL) 62 L 70 L (75-99) mg/dL 08/10/19 Range/Units 11:44 WBC (3.8-10.6) k/uL RBC (3.80-5.40) m/uL Hgb (11.4-16.0) gm/dL Hct (34.0-46.0) % RDW (11.5-15.5) % Neutrophils # (1.3-7.7) k/uL Sodium (137-145) mmol/L Chloride (98-107) mmol/L BUN (7-17) mg/dL Creatinine (0.52-1.04) mg/dL Glucose (74-99) mg/dL POC Glucose (mg/dL) 176 H (75-99) mg/dL Microbiology - Last 24 Hours (Table) 08/04/19 16:48 Blood Culture - Preliminary Blood No Growth after 120 hours Assessment and Plan Assessment: (1) Acute osteomyelitis left foot with Gangrene of left lower extremity concurrent with atherosclerosis of bypass graft, status post amputation left first and second toes. MRSA, Pseudomonas, Citrobacter Amalonaticusand anaerobic gram-negative bacilli. Status post left BKA Current Visit: Yes Status: Acute Code(s): I70.362 - ATHSCL UNSP TYPE BYPASS OF THE EXTRM W GANGRENE, LEFT LEG SNOMED Code(s): 40971286686808703 (2) Insulin-requiring or dependent type II diabetes mellitus, HGBA1C 7.7 Current Visit: Yes Status: Acute Code(s): E11.9 - TYPE 2 DIABETES MELLITUS WITHOUT COMPLICATIONS; Z79.4 - PATROL MAN (CURRENT) USE OF INSULIN SNOMED Code(s): 082969582 (3) Hyperglycemic crisis in diabetes mellitus Current Visit: Yes Status: Acute Code(s): E11.65 - TYPE 2 DIABETES MELLITUS WITH HYPERGLYCEMIA SNOMED Code(s): 334497165 (4) Acute on chronic renal failure, end-stage renal disease, on hemodialysis Current Visit: No Status: Acute Code(s): N17.9 - ACUTE KIDNEY FAILURE, UNSPECIFIED; N18.9 - CHRONIC KIDNEY DISEASE, UNSPECIFIED SNOMED Code(s): 857930327 (5) Anemia of chronic disease Current Visit: No Status: Acute Code(s): D63.8 - ANEMIA IN OTHER CHRONIC DISEASES CLASSIFIED ELSEWHERE SNOMED Code(s): 397753474 (6) Atherosclerosis of [place] arteries of left leg with ulceration of other part of foot Current Visit: No Status: Acute Code(s): I70.245 - ATHSCL HABEMATOLEL ARTERIES OF LEFT LEG W ULCERATION OTH PRT FOOT SNOMED Code(s): 623116259499788 (7) Chronic kidney disease with end stage renal disease on dialysis due to type 2 diabetes mellitus Current Visit: Yes Status: Acute Code(s): E11.22 - TYPE 2 DIABETES MELLITUS W DIABETIC CHRONIC KIDNEY DISEASE; N18.6 - END STAGE RENAL DISEASE; Z99.2 - DEPENDENCE ON RENAL DIALYSIS SNOMED Code(s): 767740195898 (8) hyponatremia secondary to chronic kidney disease (9) hypertension Plan: Continue on current medication regime ,monitoring and symptomatic treatment.antibiotics as per ID. aggressive pulmonary toileting with incentive spirometer reinforced. Levemir insulin increased ,close monitoring of Accu- Cheks. Hemodialysis as per nephrology. Prognosis guarded given multiple complex medical issues. Time with Patient: Greater than 30
[2019-08-11 06:00] LABS: Anisocytosis Slight; Basophils # (A) 0.1 k/uL (0-0.2); Basophils % (A) 1 %; Eosinophils # (A) 0.5 k/uL (0-0.7); Eosinophils % (A) 4 %; HCT 28.1 % (34.0-46.0); HGB 8.7 gm/dL (11.4-16.0); Hypochromasia Moderate; Lymphocytes # (A) 1.2 k/uL (1.0-4.8); Lymphocytes % (A) 9 %; MCV 93.5 fL (80.0-100.0); Macrocytosis Slight; Mean Platelet Volume 7.1; Monocytes # (A) 0.7 k/uL (0-1.0); Monocytes % (A) 5 %; Neutrophils # (A) 10.4 k/uL (1.3-7.7); Neutrophils % (A) 80 %; Platelet Count 249 k/uL (150-450)
[2019-08-11 06:15] LABS: Calcium 8.6 mg/dL (8.4-10.2); Potassium 4.6 mmol/L (3.5-5.1)
[2019-08-11] MEDS: INSULIN ASPART (NovoLOG) 100 UNIT/ML VIAL SQ SCH ×4 (06:44→20:51)
[2019-08-11] MEDS: CALCIUM CARB-MAG CARB-FOLIC 1 EACH TAB PO SCH ×3 (06:46→17:03)
[2019-08-11] MEDS: CALCIUM ACETATE 667 MG CAP PO SCH ×2 (06:46→17:01)
[2019-08-11] MEDS: INSULIN DETEMIR (LEVEMIR) 100 UNIT/ML SYR SQ SCH (06:46)
[2019-08-11 06:48] LABS: Glucose,Whole Blood 202 mg/dL (75-99)
[2019-08-11] MEDS: CLOPIDOGREL 75 MG TAB PO SCH (08:09)
[2019-08-11] MEDS: FOLIC ACID-VIT B COMPLEX-VIT C 1 CAP PO SCH (08:09)
[2019-08-11] MEDS: metroNIDAZOLE 500 MG TAB PO SCH (08:10)
[2019-08-11] MEDS: CHOLECALCIFEROL 1,000 UNIT TAB PO SCH (08:10)
[2019-08-11] MEDS: ASPIRIN 81 MG PO SCH (08:10)
[2019-08-11] MEDS: CYANOCOBALAMIN 500 MCG TAB PO SCH (08:10)
--- NOTE | 2019-08-11 10:42 | P.PN ---
Subjective Progress Note Date: 08/11/19 Principal diagnosis: Status post left below the knee amputation. Patient is evaluated today 3 days postoperatively. Nursing reports she apparently fell while trying to get to the bedside commode, being entangled in IV lines. There is no reported injury. In fact the patient did not even report this to me during my visit with her. The patient has full range of motion of her left knee with good flexion and extension noted. Surgical dressing is dry and intact. Surgically the patient is stable. We are waiting placement into rehab. This is anticipated to occur tomorrow August 12. Objective - Vital Signs Vital signs: Vital Signs Temp 97.9 F 08/11/19 04:00 Pulse 86 08/11/19 08:00 Resp 20 08/11/19 08:00 BP 123/57 08/11/19 08:00 Pulse Ox 99 08/11/19 08:00 Intake & Output 08/10/19 08/11/19 08/11/19 18:59 06:59 18:59 Intake Total 640 Output Total 2250 Balance -1610 Weight 82.3 kg Intake: Intake, IV Titration 160 Amount Lactated Ringers 1,000 ml 160 @ 20 mls/hr IV .Q24H [facility] Rx#:[id number] Oral 480 Output: Hemodialysis 2250 Other: Voiding Method Toilet # Voids 3 1 # Bowel Movements 1 1 - Labs CBC & Chem 7: 08/11/19 05:24 08/11/19 05:24 Labs: Abnormal Lab Results - Last 24 Hours (Table) 08/10/19 08/10/19 08/11/19 Range/Units 11:44 20:21 02:03 WBC (3.8-10.6) k/uL RBC (3.80-5.40) m/uL Hgb (11.4-16.0) gm/dL Hct (34.0-46.0) % RDW (11.5-15.5) % Neutrophils # (1.3-7.7) k/uL Sodium (137-145) mmol/L Chloride (98-107) mmol/L BUN (7-17) mg/dL Creatinine (0.52-1.04) mg/dL Glucose (74-99) mg/dL POC Glucose (mg/dL) 176 H 184 H 199 H (75-99) mg/dL 08/11/19 08/11/19 08/11/19 Range/Units 05:24 05:24 06:43 WBC 13.0 H (3.8-10.6) k/uL RBC 3.00 L (3.80-5.40) m/uL Hgb 8.7 L (11.4-16.0) gm/dL Hct 28.1 L (34.0-46.0) % RDW 18.0 H (11.5-15.5) % Neutrophils # 10.4 H (1.3-7.7) k/uL Sodium 133 L (137-145) mmol/L Chloride 96 L (98-107) mmol/L BUN 30 H (7-17) mg/dL Creatinine 3.98 H (0.52-1.04) mg/dL Glucose 199 H (74-99) mg/dL POC Glucose (mg/dL) 202 H (75-99) mg/dL Microbiology - Last 24 Hours (Table) 08/04/19 16:48 Blood Culture - Final Blood No Growth after 144 hours
--- NOTE | 2019-08-11 10:44 | P.PN ---
Subjective Progress Note Date: 08/11/19 Principal diagnosis: This is a 74-year-old female with ESRD on dialysis Monday. Her last dialysis was yesterday Monday and she is doing very well She had left first and second toe amputation, and then had a below-knee amputation and is doing well postop. This morning she feels fairly well. She denies any fever chills cough shortness of breath nausea vomiting. No abdominal pain. She says she is able to ambulate with a walker. She has a bandage on her left leg Her last dialysis was on 08/07/2019 on Monday and she is scheduled for dialysis today Monday to be back on her scheduled Objective - Vital Signs Vital signs: Vital Signs Temp 97.9 F 08/11/19 04:00 Pulse 86 08/11/19 08:00 Resp 20 08/11/19 08:00 BP 123/57 08/11/19 08:00 Pulse Ox 99 08/11/19 08:00 Intake & Output 08/10/19 08/11/19 08/11/19 18:59 06:59 18:59 Intake Total 640 Output Total 2250 Balance -1610 Weight 82.3 kg Intake: Intake, IV Titration 160 Amount Lactated Ringers 1,000 ml 160 @ 20 mls/hr IV .Q24H [facility] Rx#:[id number] Oral 480 Output: Hemodialysis 2250 Other: Voiding Method Toilet # Voids 3 1 # Bowel Movements 1 1 Awake alert oriented HEENT exam no JVP neck is supple no facial asymmetry Lungs are clear to auscultation with good air entry bilaterally Heart sounds are remarkable for grade 2 systolic ejection murmur Abdomen soft nontender no organomegaly status masses Extremity exam was no edema. Left BKA Neurologically awake alert oriented - Labs CBC & Chem 7: 08/11/19 05:24 08/11/19 05:24 Labs: Abnormal Lab Results - Last 24 Hours (Table) 08/10/19 08/10/19 08/11/19 Range/Units 11:44 20:21 02:03 WBC (3.8-10.6) k/uL RBC (3.80-5.40) m/uL Hgb (11.4-16.0) gm/dL Hct (34.0-46.0) % RDW (11.5-15.5) % Neutrophils # (1.3-7.7) k/uL Sodium (137-145) mmol/L Chloride (98-107) mmol/L BUN (7-17) mg/dL Creatinine (0.52-1.04) mg/dL Glucose (74-99) mg/dL POC Glucose (mg/dL) 176 H 184 H 199 H (75-99) mg/dL 08/11/19 08/11/19 08/11/19 Range/Units 05:24 05:24 06:43 WBC 13.0 H (3.8-10.6) k/uL RBC 3.00 L (3.80-5.40) m/uL Hgb 8.7 L (11.4-16.0) gm/dL Hct 28.1 L (34.0-46.0) % RDW 18.0 H (11.5-15.5) % Neutrophils # 10.4 H (1.3-7.7) k/uL Sodium 133 L (137-145) mmol/L Chloride 96 L (98-107) mmol/L BUN 30 H (7-17) mg/dL Creatinine 3.98 H (0.52-1.04) mg/dL Glucose 199 H (74-99) mg/dL POC Glucose (mg/dL) 202 H (75-99) mg/dL Microbiology - Last 24 Hours (Table) 08/04/19 16:48 Blood Culture - Final Blood No Growth after 144 hours Assessment and Plan Assessment: Impression 1. ESRD on dialysis Monday. Stable. To be dialyzed Monday 2. Euvolemic no evidence of congestive heart failure. Improved 3. Status post amputation of left first and second toe on 07/31/2019. and subsequent left BKA dated 08/08/2019 4. Anemia of ESRD with hemoglobin going down from 14.9 on 07/30/2019 to 9 .4. And further down to 8.7 No obvious evidence of any GI bleed. 5. Mild hyponatremia secondary to ESRD and excess free fluid. 6. Iron deficiency and saturation 9.4% dated 08/02 Recommendation 1. Continue same medications. 2. hemodialysis next on Monday 3. Monitor CBC every third or fourth day. 4. Monitor calcium phosphorus on a weekly basis 5. Physiotherapy as per primary physician, and surgical recommendation 6. We'll give her 3 dose of IV Ferrlecit
[2019-08-11] MEDS: SODIUM FERRIC GLUCONAT-SUCROSE 125 MG in SODIUM CHLORIDE 0.9% 100 ML IVPB SCH (11:57)
[2019-08-11] MEDS: FUROSEMIDE 40 MG TAB PO SCH (11:57)
[2019-08-11] MEDS: CITALOPRAM HYDROBROMIDE 20 MG TAB PO SCH (11:57)
[2019-08-11] MEDS ORDERED: DARBEPOETIN ALFA 40 MCG/0.4 ML SYRINGE SQ SCH (12:00)
[2019-08-11 12:26] LABS: Glucose,Whole Blood 262 mg/dL (75-99)
[2019-08-11] MEDS: LACTATED RINGERS 1,000 ML IV SCH (16:57)
[2019-08-11 17:17] LABS: Glucose,Whole Blood 167 mg/dL (75-99)
[2019-08-11] MEDS: ATORVASTATIN 80 MG TAB PO SCH (20:47)
[2019-08-11] MEDS: LISINOPRIL 10 MG TAB PO SCH (20:49)
[2019-08-11 20:50] LABS: Glucose,Whole Blood 153 mg/dL (75-99)
--- NOTE | 2019-08-12 00:33 | PN ---
PROGRESS NOTE DATE OF SERVICE: 08/11/2019. REASON FOR FOLLOW UP: Left foot second toe gangrene with osteomyelitis. INTERVAL HISTORY: The patient is currently afebrile. Patient has been breathing comfortably. The patient denies having any chest pain, shortness of breath or cough. No nausea or vomiting. No abdominal pain and no pain in the left BKA. PHYSICAL EXAMINATION: Blood pressure is 126/57 with a pulse of 79, temperature 98.2. He is 93% on room air. General description is an elderly female, lying in bed in no distress. Respiratory system: Unlabored breathing. Clear to auscultation anteriorly. Heart S1, S2. Regular rate and rhythm. Abdomen soft, no tenderness. LABS: White count down to 13,000. DIAGNOSTIC IMPRESSION AND PLAN: Patient with a left 1st and 2nd toe gangrene, status post left below the knee amputation as infected part has been removed emt intermediate antibiotic therapy. Antibiotic therapy has already been discontinued. We will monitor the patient closely off antibiotic. MMODL / IJN: [id number] /
--- NOTE | 2019-08-12 01:02 | P.PN ---
Subjective Progress Note Date: 08/11/19 Principal diagnosis: Status post left BKA This is a pleasant 74-year-old white female who was directly admitted from the OR yesterday where she was undergoing a left toe amputation secondary to gangrene and osteomyelitis of the left great toe and second toe. She subsequently discontinued her insulin a few days prior to the surgery during surgical day and was found to have her blood sugars exceeding 500 she was admitted for further care. I placed her on diabetic insulin sliding scale her regular home medications with with some hydration and her sugars this morning were 117 and much improvement. However I did see that she had a morning meal served so I'm thinking that surgery will be postponed until tomorrow. She currently has no complaints and is feeling well. 07/31/2019 hypoglycemic, received D50, currently nothing by mouth for surgery. Scheduled for amputation of first and second toes of the left foot today with vascular surgery. Denies chest pain, palpitations or shortness of breath. Vital signs stable. Afebrile. 08/01/2019 under amputation of left first and second toes yesterday, tolerated procedure well. Wound VAC present. Increased pain during the night but currently controlled. Scheduled for dialysis today. Vital signs stable. Consumed 50% of breakfast with no nausea vomiting or diarrhea. Denies chest pain, palpitations or shortness of breath. Denies lightheadedness, dizziness or focal deficits. 08/02/2019 pain controlled. Received hemodialysis yesterday. Evaluated by PT/OT with subacute rehab recommended at discharge. Isolated fever 100.4 X 1, normal WBC. Denies chills. afebrile. Vital signs stable. Blood sugars curren tly controlled. 08/05/2019 periodic fevers with low-grade fever yesterday. Wound cultures reporting MRSA, Pseudomonas, Citrobacter. Blood cultures ordered as per ID, pending. T-max 99.5. Maintained on IV Fortaz, vancomycin, Flagyl as per ID .Sodium 125, scheduled for hemodialysis tomorrow. Receiving IV iron. Consuming 75-100% with blood sugars ranging from 69-101. 08/06/2019 pain improving, wearing pillow boot, dressing appears clean dry and intact. Diet intake improving, no bowel movement. Wound Vac removed this am,necrotic changes with further surgery being discussed between family and vascular surgery. Hemodialysis scheduled for today.maintained on ceftazidime, vancomycin, Flagyl. as per infectious disease. Afebrile.denies chest pain, palpitations or shortness of breath. 08/07/2019 Patient is scheduled for BKA tomorrow. Pain controlled.vital signs stable. Denies chest pain, palpitations or shortness of breath. Denies lightheadedness dizziness or focal deficits.Blood sugars controlled. 08/08/2019 receiving hemodialysis this morning. Blood sugars controlled. Sched uled for BKA today. Maintained on IV antibiotics as per infectious disease. Afebrile, normal WBC. Denies chest pain, palpitations or shortness of breath. 08/09/2019 status post left BKA, tolerated well. Dressing clean dry and intact. Pain controlled. Vital signs stable, maintaining O2 sats in the 90s on room air. Continues on ceftazidime, Flagyl, vancomycin as per infectious disease. Afebrile. Hyperglycemic, blood sugars in the 200. Denies chest pain, palpitations or shortness of breath. Denies lightheadedness, dizziness or focal deficits. 08/10/2019 Patient's left BKA stump is clean and no signs of infection. Currently patient is getting hemodialysis. Lying in the bed comfortably and saturating well on room air. was on antibiotics in the form of vancomycin, ceftazidime and Flagyl as per ID recommendations. WBC increased to 15.8. off Antibiotics now. Blood sugars are fairly controlled. No complaints of chest pain or shortness of breath. No nausea vomiting or abdominal pain. No diarrhea. 08/11/2019 Patient is status post left BKA. Currently patient is off antibiotics. WBC count is trending down. Otherwise patient denied any complaints of chest pain or shortness of breath. No nausea vomiting or abdominal pain. Wound stump is clean and dry. Nephrology is following. Patient was started on iron supplementation. No fever no chills. No increased pain. No cough or sputum production. Anticipate discharged to rehab in next 1-2 days. Current medications reviewed. Objective - Vital Signs Vital signs: Vital Signs Temp 98.2 F 08/11/19 16:24 Pulse 78 08/11/19 16:24 Resp 20 08/11/19 16:24 BP 140/65 08/11/19 16:24 Pulse Ox 96 08/11/19 16:24 Intake & Output 08/10/19 08/11/19 08/11/19 18:59 06:59 18:59 Intake Total 640 500 Output Total 2250 Balance -1610 500 Weight 82.3 kg Intake: Intake, IV Titration 160 260 Amount Lactated Ringers 1,000 ml 160 160 @ 20 mls/hr IV .Q24H [facility] Rx#:[id number] Sodium Ferric Gluconat- 100 Sucrose 125 mg In Sodium Chloride 0.9% 100 ml @ 100 mls/hr IVPB Q24H [facility] Rx#:[id number] Oral 480 240 Output: Hemodialysis 2250 Other: Voiding Method Toilet # Voids 3 1 # Bowel Movements 1 1 - Exam GENERAL: Sitting up in bed, alert and oriented 3, no acute distress HEENT: Head is atraumatic, normocephalic. Pupils are equal, round, and reactive to light. Sclerae anicteric. Conjunctivae are clear. Mucus membranes of the mouth are moist. Neck is supple. RESPIRATORY: Unlabored, Clear to auscultation. No wheezes, rales, or rhonchi. CARDIOVASCULAR: Regular rate and rhythm. S1 and S2 noted. No systolic or diastolic murmur auscultated. No JVD noted. GASTROINTESTINAL: No distention noted. Abdomen soft and round. Normal active bowel sounds auscultated x 4 quadrants. No pain or tenderness noted upon palpation. INTEGUMENTARY: No cyanosis. No jaundice. No rashes noted. No cellulitis noted. EXTREMITIES: Left BKA, dressing clean dry and intact NEUROLOGIC: Cranial nerves II-XII intact. PSYCHIATRIC: Awake, alert, and oriented X 3. Appropriate affect. Intact judgeme nt and insight. - Labs CBC & Chem 7: 08/11/19 05:24 08/11/19 05:24 Labs: Abnormal Lab Results - Last 24 Hours (Table) 08/10/19 08/11/19 08/11/19 Range/Units 20:21 02:03 05:24 WBC 13.0 H (3.8-10.6) k/uL RBC 3.00 L (3.80-5.40) m/uL Hgb 8.7 L (11.4-16.0) gm/dL Hct 28.1 L (34.0-46.0) % RDW 18.0 H (11.5-15.5) % Neutrophils # 10.4 H (1.3-7.7) k/uL Sodium (137-145) mmol/L Chloride (98-107) mmol/L BUN (7-17) mg/dL Creatinine (0.52-1.04) mg/dL Glucose (74-99) mg/dL POC Glucose (mg/dL) 184 H 199 H (75-99) mg/dL 08/11/19 08/11/19 08/11/19 Range/Units 05:24 06:43 11:47 WBC (3.8-10.6) k/uL RBC (3.80-5.40) m/uL Hgb (11.4-16.0) gm/dL Hct (34.0-46.0) % RDW (11.5-15.5) % Neutrophils # (1.3-7.7) k/uL Sodium 133 L (137-145) mmol/L Chloride 96 L (98-107) mmol/L BUN 30 H (7-17) mg/dL Creatinine 3.98 H (0.52-1.04) mg/dL Glucose 199 H (74-99) mg/dL POC Glucose (mg/dL) 202 H 262 H (75-99) mg/dL 08/11/19 Range/Units 16:51 WBC (3.8-10.6) k/uL RBC (3.80-5.40) m/uL Hgb (11.4-16.0) gm/dL Hct (34.0-46.0) % RDW (11.5-15.5) % Neutrophils # (1.3-7.7) k/uL Sodium (137-145) mmol/L Chloride (98-107) mmol/L BUN (7-17) mg/dL Creatinine (0.52-1.04) mg/dL Glucose (74-99) mg/dL POC Glucose (mg/dL) 167 H (75-99) mg/dL Microbiology - Last 24 Hours (Table) 08/04/19 16:48 Blood Culture - Final Blood No Growth after 144 hours Assessment and Plan Assessment: (1) Acute osteomyelitis left foot with Gangrene of left lower extremity concurrent with atherosclerosis of bypass graft, status post amputation left first and second toes. MRSA, Pseudomonas, Citrobacter Amalonaticusand anaerobic gram-negative bacilli. Status post left BKA Current Visit: Yes Status: Acute Code(s): I70.362 - ATHSCL UNSP TYPE BYPASS OF THE EXTRM W GANGRENE, LEFT LEG SNOMED Code(s): 44219357423712191 (2) Insulin-requiring or dependent type II diabetes mellitus, HGBA1C 7.7 Current Visit: Yes Status: Acute Code(s): E11.9 - TYPE 2 DIABETES MELLITUS WITHOUT COMPLICATIONS; Z79.4 - DUPLICATE MAKER (CURRENT) USE OF INSULIN SNOMED Code(s): 764440655 (3) Hyperglycemic crisis in diabetes mellitus Current Visit: Yes Status: Acute Code(s): E11.65 - TYPE 2 DIABETES MELLITUS WITH HYPERGLYCEMIA SNOMED Code(s): 015930733 (4) Acute on chronic renal failure, end-stage renal disease, on hemodialysis Current Visit: No Status: Acute Code(s): N17.9 - ACUTE KIDNEY FAILURE, UNSPECIFIED; N18.9 - CHRONIC KIDNEY DISEASE, UNSPECIFIED SNOMED Code(s): 822683678 (5) Anemia of chronic disease Current Visit: No Status: Acute Code(s): D63.8 - ANEMIA IN OTHER CHRONIC DISEASES CLASSIFIED ELSEWHERE SNOMED Code(s): 001740290 (6) Atherosclerosis of [place] arteries of left leg with ulceration of other part of foot Current Visit: No Status: Acute Code(s): I70.245 - ATHSCL TRI[place] ARTERIES OF LEFT LEG W ULCERATION OTH PRT FOOT SNOMED Code(s): 802399185179426 (7) Chronic kidney disease with end stage renal disease on dialysis due to type 2 diabetes mellitus Current Visit: Yes Status: Acute Code(s): E11.22 - TYPE 2 DIABETES MELLITUS W DIABETIC CHRONIC KIDNEY DISEASE; N18.6 - END STAGE RENAL DISEASE; Z99.2 - DEPENDENCE ON RENAL DIALYSIS SNOMED Code(s): 705465153926 (8) hyponatremia secondary to chronic kidney disease (9) hypertension Plan: Continue on current medication regime ,monitoring and symptomatic treatment.. off ANTIBIOTICS NOW. aggressive pulmonary toileting with incentive spirometer reinforced. Levemir insulin increased ,close monitoring of Accu- Cheks. Hemodialysis as per nephrology. Prognosis guarded given multiple complex medical issues. Time with Patient: Greater than 30
[2019-08-12 02:09] LABS: Glucose,Whole Blood 114 mg/dL (75-99)
[2019-08-12 07:02] LABS: Glucose,Whole Blood 125 mg/dL (75-99)
[2019-08-12] MEDS: INSULIN DETEMIR (LEVEMIR) 100 UNIT/ML SYR SQ SCH (07:04)
[2019-08-12] MEDS: CALCIUM ACETATE 667 MG CAP PO SCH ×2 (07:04→18:01)
[2019-08-12] MEDS: CALCIUM CARB-MAG CARB-FOLIC 1 EACH TAB PO SCH ×3 (07:05→18:01)
[2019-08-12] MEDS: INSULIN ASPART (NovoLOG) 100 UNIT/ML VIAL SQ SCH ×4 (07:05→21:40)
[2019-08-12] MEDS: LACTATED RINGERS 1,000 ML IV SCH ×2 (07:07→12:41)
[2019-08-12] MEDS: ASPIRIN 81 MG PO SCH (10:35)
[2019-08-12] MEDS: FOLIC ACID-VIT B COMPLEX-VIT C 1 CAP PO SCH (10:35)
[2019-08-12] MEDS: CYANOCOBALAMIN 500 MCG TAB PO SCH (10:36)
[2019-08-12] MEDS: CHOLECALCIFEROL 1,000 UNIT TAB PO SCH (10:36)
[2019-08-12] MEDS: CLOPIDOGREL 75 MG TAB PO SCH (10:36)
--- NOTE | 2019-08-12 11:22 | P.PN ---
Subjective Progress Note Date: 08/12/19 This is a pleasant 74-year-old white female who was directly admitted from the OR yesterday where she was undergoing a left toe amputation secondary to gangrene and osteomyelitis of the left great toe and second toe. She subsequently discontinued her insulin a few days prior to the surgery during surgical day and was found to have her blood sugars exceeding 500 she was admitted for further care. I placed her on diabetic insulin sliding scale her regular home medications with with some hydration and her sugars this morning were 117 and much improvement. However I did see that she had a morning meal served so I'm thinking that surgery will be postponed until tomorrow. She currently has no complaints and is feeling well. 07/31/2019 hypoglycemic, received D50, currently nothing by mouth for surgery. Scheduled for amputation of first and second toes of the left foot today with vascular surgery. Denies chest pain, palpitations or shortness of breath. Vital signs stable. Afebrile. 08/01/2019 under amputation of left first and second toes yesterday, tolerated procedure well. Wound VAC present. Increased pain during the night but currently controlled. Scheduled for dialysis today. Vital signs stable. Consumed 50% of breakfast with no nausea vomiting or diarrhea. Denies chest pain, palpitations or shortness of breath. Denies lightheadedness, dizziness or focal deficits. 08/02/2019 pain controlled. Received hemodialysis yesterday. Evaluated by PT/OT with subacute rehab recommended at discharge. Isolated fever 100.4 X 1, normal WBC. Denies chills. afebrile. Vital signs stable. Blood sugars currently controlled. 08/05/2019 periodic fevers with low-grade fever yesterday. Wound cultures reporting MRSA, Pseudomonas, Citrobacter. Blood cultures ordered as per ID, pending. T-max 99.5. Maintained on IV Fortaz, vancomycin, Flagyl as per ID .Sodium 125, scheduled for hemodialysis tomorrow. Receiving IV iron. Consuming 75-100% with blood sugars ranging from 69-101. 08/06/2019 pain improving, wearing pillow boot, dressing appears clean dry and intact. Diet intake improving, no bowel movement. Wound Vac removed this am,necrotic changes with further surgery being discussed between family and vascular surgery. Hemodialysis scheduled for today.maintained on ceftazidime, vancomycin, Flagyl. as per infectious disease. Afebrile.denies chest pain, palpitations or shortness of breath. 08/07/2019 Patient is scheduled for BKA tomorrow. Pain controlled.vital signs stable. Denies chest pain, palpitations or shortness of breath. Denies lightheadedness dizziness or focal deficits.Blood sugars controlled. 08/08/2019 receiving hemodialysis this morning. Blood sugars controlled. Scheduled for BKA today. Maintained on IV antibiotics as per infectious di sease. Afebrile, normal WBC. Denies chest pain, palpitations or shortness of breath. 08/09/2019 status post left BKA, tolerated well. Dressing clean dry and intact. Pain controlled. Vital signs stable, maintaining O2 sats in the 90s on room air. Continues on ceftazidime, Flagyl, vancomycin as per infectious disease. Afebrile. Hyperglycemic, blood sugars in the 200. Denies chest pain, p alpitations or shortness of breath. Denies lightheadedness, dizziness or focal deficits. 08/10/2019 Patient's left BKA stump is clean and no signs of infection. Currently patient is getting hemodialysis. Lying in the bed comfortably and saturating well on room air. was on antibiotics in the form of vancomycin, ceftazidime and Flagyl as per ID recommendations. WBC increased to 15.8. off Antibiotics now. Blood sugars are fairly controlled. No complaints of chest pain or shortness of breath. No nausea vomiting or abdominal pain. No diarrhea. 08/11/2019 Patient is status post left BKA. Currently patient is off antibiotics. WBC count is trending down. Otherwise patient denied any complaints of chest pain or shortness of breath. No nausea vomiting or abdominal pain. Wound stump is clean and dry. Nephrology is following. Patient was started on iron supplementation. No fever no chills. No increased pain. No cough or sputum production. Anticipate discharged to rehab in next 1-2 days. 08/12/2019 significant clinical improvement. Off antibiotics, afebrile. Blood sugars controlled. Scheduled for hemodialysis on Monday. WBC / Hemoglobin pending. Denies pain. Denies chest pain, palpitations or shortness of breath. Denies lightheadedness, dizziness or focal deficits. Objective - Vital Signs Vital signs: Vital Signs Temp 97.7 F 08/12/19 04:00 Pulse 77 08/12/19 04:00 Resp 18 08/12/19 04:00 BP 141/63 08/12/19 04:00 Pulse Ox 95 08/12/19 04:00 Intake & Output 08/11/19 08/12/19 08/12/19 18:59 06:59 18:59 Intake Total 740 180 Output Total 300 Balance 740 -120 Weight 78 kg Intake: Intake, IV Titration 260 Amount Lactated Ringers 1,000 ml 160 @ 20 mls/hr IV .Q24H [facility] Rx#:[id number] Sodium Ferric Gluconat- 100 Sucrose 125 mg In Sodium Chloride 0.9% 100 ml @ 100 mls/hr IVPB Q24H [facility] Rx#:[id number] Oral 480 180 Output: Urine 300 Other: Voiding Method Bedside Commode # Bowel Movements 4 2 - Exam GENERAL: Sitting up in bed, alert and oriented 3, no acute distress HEENT: Head is atraumatic, normocephalic. Pupils are equal, round, and reactive to light. Sclerae anicteric. Conjunctivae are clear. Mucus membranes of the mouth are moist. Neck is supple. RESPIRATORY: Unlabored, Clear to auscultation. No wheezes, rales, or rhonchi. CARDIOVASCULAR: Regular rate and rhythm. S1 and S2 noted. No systolic or diastolic murmur auscultated. No JVD noted. GASTROINTESTINAL: No distention noted. Abdomen soft and round. Normal active bowel sounds auscultated x 4 quadrants. No pain or tenderness noted upon palpation. INTEGUMENTARY: No cyanosis. No jaundice. No rashes noted. No cellulitis noted. EXTREMITIES: Left BKA, dressing clean dry and intact NEUROLOGIC: Cranial nerves II-XII intact. PSYCHIATRIC: Awake, alert, and oriented X 3. Appropriate affect. Intact judgement and insight. Microbiology 08/04/19 16:48 Blood Blood Culture - Final No Growth after 144 hours 07/31/19 16:15 Toe - Left First Gram Stain - Final 07/31/19 16:15 Toe - Left First Wound Culture - Final Pseudomonas aeruginosa Methicillin resist S. aureus Citrobacter amalonaticus 07/31/19 16:15 Toe - Left First Anaerobic Culture - Final Anaerobic Gm Negative Bacilli - Labs CBC & Chem 7: 08/11/19 05:24 08/11/19 05:24 Labs: Abnormal Lab Results - Last 24 Hours (Table) 08/11/19 08/11/19 08/11/19 Range/Units 11:47 16:51 20:48 POC Glucose (mg/dL) 262 H 167 H 153 H (75-99) mg/dL 08/12/19 08/12/19 Range/Units 02:08 07:01 POC Glucose (mg/dL) 114 H 125 H (75-99) mg/dL Assessment and Plan Assessment: (1) Acute osteomyelitis left foot with Gangrene of left lower extremity concurrent with atherosclerosis of bypass graft, status post amputation left first and second toes. MRSA, Pseudomonas, Citrobacter Amalonaticusand anaerobic gram-negative bacilli. Status post left BKA Current Visit: Yes Status: Acute Code(s): I70.362 - ATHSCL UNSP TYPE BYPASS OF THE EXTRM W GANGRENE, LEFT LEG SNOMED Code(s): 73546197793367787 (2) Insulin-requiring or dependent type II diabetes mellitus, HGBA1C 7.7 Current Visit: Yes Status: Acute Code(s): E11.9 - TYPE 2 DIABETES MELLITUS WITHOUT COMPLICATIONS; Z79.4 - FPC (CURRENT) USE OF INSULIN SNOMED Code(s): 991440357 (3) Hyperglycemic crisis in diabetes mellitus Current Visit: Yes Status: Acute Code(s): E11.65 - TYPE 2 DIABETES MELLITUS WITH HYPERGLYCEMIA SNOMED Code(s): 374610172 (4) Acute on chronic renal failure, end-stage renal disease, on hemodialysis Current Visit: No Status: Acute Code(s): N17.9 - ACUTE KIDNEY FAILURE, UNSPECIFIED; N18.9 - CHRONIC KIDNEY DISEASE, UNSPECIFIED SNOMED Code(s): 282793416 (5) Anemia of chronic disease Current Visit: No Status: Acute Code(s): D63.8 - ANEMIA IN OTHER CHRONIC DISEASES CLASSIFIED ELSEWHERE SNOMED Code(s): 149318471 (6) Atherosclerosis of [place] arteries of left leg with ulceration of other part of foot Current Visit: No Status: Acute Code(s): I70.245 - ATHSCL [place] ARTERIES OF LEFT LEG W ULCERATION OTH PRT FOOT SNOMED Code(s): 842554685587973 (7) Chronic kidney disease with end stage renal disease on dialysis due to type 2 diabetes mellitus Current Visit: Yes Status: Acute Code(s): E11.22 - TYPE 2 DIABETES MELLITUS W DIABETIC CHRONIC KIDNEY DISEASE; N18.6 - END STAGE RENAL DISEASE; Z99.2 - DEPENDENCE ON RENAL DIALYSIS SNOMED Code(s): 161485536582 (8) hyponatremia secondary to chronic kidney disease (9) hypertension Plan: Continue on current medication regime ,monitoring and symptomatic treatment.labs pending. Hemodialysis as per nephrology. Blood sugars controlled. aggressive pulmonary toileting with incentive spirometer reinforced. Significant clinical improvement. Discharge planning in progress as per surgery to subacute rehab. Follow-up with PCP 1 week after discharge from subacute rehab. Repeat CBC, BMP in 3 days outpatient. The impression and plan of care has been dictated as directed. : I performed a history and examination of this patient, discussed the same with the dictator. I agree with the dictator's note ,documented as a scribe. Any additional findings or plans will be noted.
[2019-08-12 11:41] LABS: Glucose,Whole Blood 149 mg/dL (75-99)
[2019-08-12 12:29] LABS: Anisocytosis Slight; Calcium 8.8 mg/dL (8.4-10.2); HCT 27.5 % (34.0-46.0); HGB 8.4 gm/dL (11.4-16.0); Hypochromasia Marked; MCH 29.3 pg (25.0-35.0); MCHC 30.5 g/dL (31.0-37.0); MCV 96.1 fL (80.0-100.0); Macrocytosis Slight; Mean Platelet Volume 7.3; Platelet Count 278 k/uL (150-450); Potassium 5.4 mmol/L (3.5-5.1); RBC 2.86 m/uL (3.80-5.40); RDW 19.7 % (11.5-15.5); WBC 16.3 k/uL (3.8-10.6)
[2019-08-12] MEDS: CITALOPRAM HYDROBROMIDE 20 MG TAB PO SCH (12:44)
[2019-08-12] MEDS: FUROSEMIDE 40 MG TAB PO SCH (12:44)
[2019-08-12] MEDS: SODIUM FERRIC GLUCONAT-SUCROSE 125 MG in SODIUM CHLORIDE 0.9% 100 ML IVPB SCH (13:10)
--- NOTE | 2019-08-12 16:25 | PN ---
PROGRESS NOTE DATE OF SERVICE: 08/11/2019. REASON FOR FOLLOWUP: Left 1st and 2nd toe osteomyelitis. INTERVAL HISTORY: The patient is currently afebrile. Patient has been breathing comfortably. The patient denies having any chest pain or cough. No nausea, vomiting. No abdominal pain or pain to the left BKA stump. PHYSICAL EXAMINATION: Blood pressure 150/67, pulse 81, temperature 97.9. She is 99% on room air. General description is an elderly female lying in bed in no distress. Respiratory system: Unlabored breathing. Clear to auscultation anteriorly. Heart S1, S2. Regular rate and rhythm. Abdomen soft. No tenderness. Left BKA stump currently dressed up. No obvious drainage on the dressing. DIAGNOSTIC IMPRESSION AND PLAN: Patient with left 1st and 2nd toe wet gangrene with osteomyelitis, status post amputation. Subsequently did have left BKA in this patient without evidence of any bacteremia. Antibiotic has been discontinued. No need for antibiotic on discharge. Continue supportive care. MMODL / IJN: [id number] /
--- NOTE | 2019-08-12 16:26 | P.DS ---
<Barbara Barron - Last Filed: 08/12/19 16:24> Providers Expected date of discharge: 08/12/19 Hospital Course: Final Diagnoses: (1) Acute osteomyelitis left foot with Gangrene of left lower extremity concurrent with atherosclerosis of bypass graft, status post amputation left first and second toes. MRSA, Pseudomonas, Citrobacter Amalonaticusand anaerobic gram-negative bacilli. 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 SNOMED Code(s): 886710431 (3) Hyperglycemic crisis in diabetes mellitus Current Visit: Yes Status: Acute Code(s): E11.65 - TYPE 2 DIABETES MELLITUS WITH HYPERGLYCEMIA SNOMED Code(s): 833430004 (4) Acute on chronic renal failure, end-stage renal disease, on hemodialysis Current Visit: No Status: Acute Code(s): N17.9 - ACUTE KIDNEY FAILURE, UNSPECIFIED; N18.9 - CHRONIC KIDNEY DISEASE, UNSPECIFIED SNOMED Code(s): 834652294 (5) Anemia of chronic disease Current Visit: No Status: Acute Code(s): D63.8 - ANEMIA IN OTHER CHRONIC DISEASES CLASSIFIED ELSEWHERE SNOMED Code(s): 880125352 (6) Atherosclerosis of [place] arteries of left leg with ulceration of other part of foot Current Visit: No Status: Acute Code(s): I70.245 - ATHSCL [place] ARTERIES OF LEFT LEG W ULCERATION OTH PRT FOOT SNOMED Code(s): 739404015954882 (7) Chronic kidney disease with end stage renal disease on dialysis due to type 2 diabetes mellitus Current Visit: Yes Status: Acute Code(s): E11.22 - TYPE 2 DIABETES MELLITUS W DIABETIC CHRONIC KIDNEY DISEASE; N18.6 - END STAGE RENAL DISEASE; Z99.2 - DEPENDENCE ON RENAL DIALYSIS SNOMED Code(s): 092374574511 (8) hyponatremia secondary to chronic kidney disease (9) hypertension Hospital course:This is a pleasant 74-year-old white female who was directly admitted from the OR yesterday where she was undergoing a left toe amputation secondary to gangrene and osteomyelitis of the left great toe and second toe. She subsequently discontinued her insulin a few days prior to the surgery during surgical day and was found to have her blood sugars exceeding 500 she was admitted for further care. I placed her on diabetic insulin sliding scale her regular home medications with with some hydration and her sugars this morning were 117 and much improvement. However I did see that she had a morning meal served so I'm thinking that surgery will be postponed until tomorrow. She currently has no complaints and is feeling well. 07/31/2019 hypoglycemic, received D50, currently nothing by mouth for surgery. Scheduled for amputation of first and second toes of the left foot today with vascular surgery. Denies chest pain, palpitations or shortness of breath. Vital signs stable. Afebrile. 08/01/2019 under amputation of left first and second toes yesterday, tolerated procedure well. Wound VAC present. Increased pain during the night but currently controlled. Scheduled for dialysis today. Vital signs stable. Consumed 50% of breakfast with no nausea vomiting or diarrhea. Denies chest pain, palpitations or shortness of breath. Denies lightheadedness, dizziness or focal deficits. 08/02/2019 pain controlled. Received hemodialysis yesterday. Evaluated by PT/OT with subacute rehab recommended at discharge. Isolated fever 100.4 X 1, normal WBC. Denies chills. afebrile. Vital signs stable. Blood sugars currently controlled. 08/05/2019 periodic fevers with low-grade fever yesterday. Wound cultures reporting MRSA, Pseudomonas, Citrobacter. Blood cultures ordered as per ID, pending. T-max 99.5. Maintained on IV Fortaz, vancomycin, Flagyl as per ID .Sodium 125, scheduled for hemodialysis tomorrow. Receiving IV iron. Consuming 75-100% with blood sugars ranging from 69-101. 08/06/2019 pain improving, wearing pillow boot, dressing appears clean dry and intact. Diet intake improving, no bowel movement. Wound Vac removed this am,necrotic changes with further surgery being discussed between family and vascular surgery. Hemodialysis scheduled for today.maintained on ceftazidime, vancomycin, Flagyl. as per infectious disease. Afebrile.denies chest pain, palpitations or shortness of breath. 08/07/2019 Patient is scheduled for BKA tomorrow. Pain controlled.vital signs stable. Denies chest pain, palpitations or shortness of breath. Denies lightheadedness dizziness or focal deficits.Blood sugars controlled. 08/08/2019 receiving hemodialysis this morning. Blood sugars controlled. Scheduled for BKA today. Maintained on IV antibiotics as per infectious disease. Afebrile, normal WBC. Denies chest pain, palpitations or shortness of breath. 08/09/2019 status post left BKA, tolerated well. Dressing clean dry and intact. Pain controlled. Vital signs stable, maintaining O2 sats in the 90s on room a ir. Continues on ceftazidime, Flagyl, vancomycin as per infectious disease. Afebrile. Hyperglycemic, blood sugars in the 200. Denies chest pain, palpitations or shortness of breath. Denies lightheadedness, dizziness or focal deficits. 08/10/2019 Patient's left BKA stump is clean and no signs of infection. Currently patient is getting hemodialysis. Lying in the bed comfortably and saturating well on room air. was on antibiotics in the form of vancomycin, ceftazidime and Flagyl as per ID recommendations. WBC increased to 15.8. off Antibiotics now. Blood sugars are fairly controlled. No complaints of chest pain or shortness of breath. No nausea vomiting or abdominal pain. No diarrhea. 08/11/2019 Patient is status post left BKA. Currently patient is off antibiotics. WBC count is trending down. Otherwise patient denied any complaints of chest pain or shortness of breath. No nausea vomiting or abdominal pain. Wound stump is clean and dry. Nephrology is following. Patient was started on iron supplementation. No fever no chills. No increased pain. No cough or sputum production. Anticipate discharged to rehab in next 1-2 days. 08/12/2019 significant clinical improvement. Off antibiotics, afebrile. Blood sugars controlled. Scheduled for hemodialysis on Monday. WBC / Hemoglobin pending. Denies pain. Denies chest pain, palpitations or shortness of breath. Denies lightheadedness, dizziness or focal deficits. Significant clinical improvement. Cleared by all consults for discharge. Patient is being discharged to [facility] today in a stable condition with guarded prognosis. - Exam GENERAL: Sitting up in bed, alert and oriented 3, no acute distress HEENT: Head is atraumatic, normocephalic. Pupils are equal, round, and reactive to light. Sclerae anicteric. Conjunctivae are clear. Mucus membranes of the mouth are moist. Neck is supple. RESPIRATORY: Unlabored, Clear to auscultation. No wheezes, rales, or rhonchi. CARDIOVASCULAR: Regular rate and rhythm. S1 and S2 noted. No systolic or diastolic murmur auscultated. No JVD noted. GASTROINTESTINAL: No distention noted. Abdomen soft and round. Normal active bowel sounds auscultated x 4 quadrants. No pain or tenderness noted upon palpation. INTEGUMENTARY: No cyanosis. No jaundice. No rashes noted. No cellulitis noted. EXTREMITIES: Left BKA, dressing clean dry and intact NEUROLOGIC: Cranial nerves II-XII intact. PSYCHIATRIC: Awake, alert, and oriented X 3. Appropriate affect. Intact judgement and insight. The impression and plan of care has been dictated as directed. : I performed a history and examination of this patient, discussed the same with the dictator. I agree with the dictator's note ,documented as a scribe. Any additional findings or plans will be noted. Time taken: 35 minutes Patient Condition at Discharge: Stable Plan - Discharge Summary Discharge Rx Participant: No New Discharge Prescriptions: New INSULIN LISPRO (HumaLOG) [humaLOG] 0 unit SQ ACHS #1 vial Acetaminophen Tab [Tylenol] 650 mg PO Q6HR PRN tab PRN Reason: Fever and/ or Mild Pain Insulin Detemir (Levemir) [Levemir] 10 unit SQ QAM@0700 syr Vancomycin HCl in 5 % Dextrose [Vancomycin 1 Gram/250 ml-D5w] 1 gm IV DIRECTED #6 plast..bag Continue Folic Acid-Vit B Complex-Vit C [Nephrocaps] 1 cap PO DAILY Clopidogrel [Plavix] 75 mg PO DAILY #30 tab Cholecalciferol [Vitamin D3 (25 Mcg = 1000 Iu)] 1,000 unit PO DAILY tab Cyanocobalamin [Vitamin B-12] 1,000 mcg PO DAILY tab Aspirin EC [Ecotrin Low Dose] 81 mg PO DAILY Atorvastatin [Lipitor] 80 mg PO HS Calcium Acetate [PhosLo] 1,334 mg PO AC-BID Calcium Carb-Mag Carb-Folic [Magnebind 400] 1 tab PO AC-TID Furosemide [Lasix] 40 mg PO DAILY Lisinopril [Zestril] 10 mg PO HS Citalopram Hydrobromide [CeleXA] 20 mg PO DAILY Discontinued Insulin Detemir [Levemir Flextouch] 30 units SQ QAM INSULIN ASPART (NovoLOG) [NovoLOG (formulary)] See Protocol SQ TID-W/MEALS Discharge Medication List Folic Acid-Vit B Complex-Vit C [Nephrocaps] 1 cap PO DAILY 06/06/16 [History] Clopidogrel [Plavix] 75 mg PO DAILY #30 tab 11/22/16 [Rx] Cholecalciferol [Vitamin D3 (25 Mcg = 1000 Iu)] 1,000 unit PO DAILY tab 07/18/17 [Rx] Cyanocobalamin [Vitamin B-12] 1,000 mcg PO DAILY tab 07/18/17 [Rx] Aspirin EC [Ecotrin Low Dose] 81 mg PO DAILY 02/15/18 [History] Atorvastatin [Lipitor] 80 mg PO HS 02/15/18 [History] Calcium Acetate [PhosLo] 1,334 mg PO AC-BID 02/15/18 [History] Calcium Carb-Mag Carb-Folic [Magnebind 400] 1 tab PO AC-TID 02/15/18 [History] Furosemide [Lasix] 40 mg PO DAILY 02/15/18 [History] Lisinopril [Zestril] 10 mg PO HS 02/15/18 [History] Citalopram Hydrobromide [CeleXA] 20 mg PO DAILY 05/04/19 [History] Acetaminophen Tab [Tylenol] 650 mg PO Q6HR PRN tab 08/12/19 [Rx] INSULIN LISPRO (HumaLOG) [humaLOG] 0 unit SQ ACHS #1 vial 08/12/19 [Rx] Insulin Detemir (Levemir) [Levemir] 10 unit SQ QAM@0700 syr 08/15/19 [Rx] Vancomycin HCl in 5 % Dextrose [Vancomycin 1 Gram/250 ml-D5w] 1 gm IV DIRECTED #6 plast..bag 08/16/19 [Rx] Follow up Appointment(s)/Referral(s): Jasbir Malone DO [Primary Care Provider] - 1 Week Suzanne Camarillo DO [STAFF PHYSICIAN] - 2 Weeks ([facility] [address] [place] [address] ) [facility], [NON-STAFF] - Akash Carlos DO [STAFF PHYSICIAN] - 1 Week Patient Instructions/Handouts: Wound Healing and Your Diet (DC), Toe Amputation (DC) Activity/Diet/Wound Care/Special Instructions: [place] Antibx as per ID: IV Vanco to be continued in outpatient setting and administered during dialysis (per Dr. Guzman) - order faxed to [facility] to supply and send Vancomycin with patient to dialysis center Diet: Consistent carb CBC, BMP in 3 days Plan of Treatment: addendum to the discharge summary Patient was seen by Dr. Guzman the white blood cell count was trending downward he had recommended IV vancomycin at current doseto be done with dialysis 2 times a week which current dialysis schedule is Tuesdays and Saturdays she was cleared to go to rehab today from a medical standpoint as well as an infectious disease standpoint. Of note her hemoglobin has remained low but stable with no active bleeding at this time and is recommended outpatient follow-up with GI as patient would not tolerate an endoscopic procedure at this time. Patient is clear for discharge standpoint <Jasbir Malone - Last Filed: 08/16/19 15:19> Providers Date of admission: 08/01/19 09:22 Attending physician: Faisal Vanegas DO Consults: 07/29/19 10:02 Consult Physician Stat Consulting Provider: Jacy Brooks Consult Reason/Comments: DIALYSIS Do you want consulting provider notified?: Yes 07/29/19 10:12 Consult Physician Stat Consulting Provider: Jasbir Malone Consult Reason/Comments: ADMIT, CBG 527 Do you want consulting provider notified?: Already Contacted 08/03/19 21:39 Consult Physician Urgent Consulting Provider: Loreta Guzman Consult Reason/Comments: Positive cultures Do you want consulting provider notified?: Yes, Notify in am Primary care physician: Jasbir Malone - Discharge Diagnosis(es) (1) 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 Current Visit: Yes Status: Acute (2) Insulin-requiring or dependent type II diabetes mellitus Current Visit: Yes Status: Acute (3) Hyperglycemic crisis in diabetes mellitus Current Visit: Yes Status: Acute (4) Acute on chronic renal failure Current Visit: No Status: Acute (5) Anemia of chronic disease Current Visit: No Status: Acute (6) Atherosclerosis of [place] arteries of left leg with ulceration of other part of foot Current Visit: No Status: Acute (7) Chronic kidney disease with end stage renal disease on dialysis due to type 2 diabetes mellitus Current Visit: Yes Status: Acute
[2019-08-12 16:57] LABS: Glucose,Whole Blood 160 mg/dL (75-99)
[2019-08-12 21:21] LABS: Glucose,Whole Blood 159 mg/dL (75-99)
[2019-08-12] MEDS ORDERED: ONDANSETRON 4 MG/2 ML VIAL IVP PRN (22:17)
[2019-08-12] MEDS: ATORVASTATIN 80 MG TAB PO SCH (22:26)
[2019-08-12] MEDS: LISINOPRIL 10 MG TAB PO SCH (22:26)
[2019-08-13 04:04] LABS: Glucose,Whole Blood 120 mg/dL (75-99)
[2019-08-13 06:36] LABS: Glucose,Whole Blood 122 mg/dL (75-99)
[2019-08-13] MEDS: INSULIN ASPART (NovoLOG) 100 UNIT/ML VIAL SQ SCH ×4 (06:50→22:03)
[2019-08-13] MEDS: CALCIUM CARB-MAG CARB-FOLIC 1 EACH TAB PO SCH ×3 (06:52→17:51)
[2019-08-13] MEDS: CALCIUM ACETATE 667 MG CAP PO SCH ×2 (06:52→17:50)
[2019-08-13] MEDS: INSULIN DETEMIR (LEVEMIR) 100 UNIT/ML SYR SQ SCH (06:53)
[2019-08-13] MEDS ORDERED: MIDODRINE 5 MG TAB PO PRN (08:29)
[2019-08-13] MEDS: LACTATED RINGERS 1,000 ML IV SCH ×2 (08:48→16:43)
[2019-08-13 09:02] LABS: Albumin 2.4 g/dL (3.5-5.0); Calcium 8.4 mg/dL (8.4-10.2); Potassium 4.4 mmol/L (3.5-5.1); Total Bilirubin 0.5 mg/dL (0.2-1.3); Total Protein 4.8 g/dL (6.3-8.2)
[2019-08-13 09:03] LABS: Anisocytosis Slight; Basophils # (A) 0.1 k/uL (0-0.2); Basophils % (A) 1 %; Eosinophils # (A) 0.4 k/uL (0-0.7); Eosinophils % (A) 2 %; Hypochromasia Slight; Lymphocytes # (A) 1.4 k/uL (1.0-4.8); Lymphocytes % (A) 9 %; MCH 28.5 pg (25.0-35.0); MCHC 30.6 g/dL (31.0-37.0); MCV 92.9 fL (80.0-100.0); Macrocytosis Slight; Mean Platelet Volume 7.8; Monocytes # (A) 0.4 k/uL (0-1.0); Monocytes % (A) 3 %; Neutrophils # (A) 13.6 k/uL (1.3-7.7); Neutrophils % (A) 85 %; Platelet Count 254 k/uL (150-450); RBC 2.26 m/uL (3.80-5.40); RDW 19.7 % (11.5-15.5)
[2019-08-13 09:10] LABS: HGB 6.4 gm/dL (11.4-16.0)
--- NOTE | 2019-08-13 09:31 | P.PN ---
Subjective Progress Note Date: 08/13/19 Patient seen and examined. Feeling more weak overall. Has not been discharged due to anemia this morning No acute distress. Sleepy No respiratory distress heart regular Left lower extremity dressing intact, knee immobilizer not on postop left below knee amputation Severe peripheral arterial disease Patient doing okay overall. Transfuse blood with dialysis. No evidence of bleeding from surgical site. Likely all anemia of chronic disease. She needs to be wearing the knee immobilizer. We will consult comfort prosthetics for a rigid dressing Objective - Vital Signs Vital signs: Vital Signs Temp 97.9 F 08/12/19 20:00 Pulse 83 08/13/19 04:00 Resp 18 08/13/19 04:00 BP 118/58 08/13/19 04:00 Pulse Ox 95 08/13/19 04:00 Intake & Output 08/12/19 08/13/19 08/13/19 18:59 06:59 18:59 Intake Total 300 Output Total 400 150 Balance -100 -150 Weight 77.5 kg Intake: Oral 300 Output: Urine 300 Emesis 100 150 Other: Voiding Method Bedside Commode Bedside Commode # Voids 0 0 # Bowel Movements 1 1 2 - Labs CBC & Chem 7: 08/13/19 07:30 08/13/19 07:30 Labs: Abnormal Lab Results - Last 24 Hours (Table) 08/12/19 08/12/19 08/12/19 Range/Units 11:32 11:41 11:41 WBC 16.3 H (3.8-10.6) k/uL RBC 2.86 L (3.80-5.40) m/uL Hgb 8.4 L (11.4-16.0) gm/dL Hct 27.5 L (34.0-46.0) % MCHC 30.5 L (31.0-37.0) g/dL RDW 19.7 H (11.5-15.5) % Neutrophils # (1.3-7.7) k/uL Sodium 132 L (137-145) mmol/L Potassium 5.4 H (3.5-5.1) mmol/L Chloride 96 L (98-107) mmol/L BUN 47 H (7-17) mg/dL Creatinine 5.63 H (0.52-1.04) mg/dL Glucose 144 H (74-99) mg/dL POC Glucose (mg/dL) 149 H (75-99) mg/dL Total Protein (6.3-8.2) g/dL Albumin (3.5-5.0) g/dL 08/12/19 08/12/19 08/13/19 Range/Units 16:54 21:20 04:01 WBC (3.8-10.6) k/uL RBC (3.80-5.40) m/uL Hgb (11.4-16.0) gm/dL Hct (34.0-46.0) % MCHC (31.0-37.0) g/dL RDW (11.5-15.5) % Neutrophils # (1.3-7.7) k/uL Sodium (137-145) mmol/L Potassium (3.5-5.1) mmol/L Chloride (98-107) mmol/L BUN (7-17) mg/dL Creatinine (0.52-1.04) mg/dL Glucose (74-99) mg/dL POC Glucose (mg/dL) 160 H 159 H 120 H (75-99) mg/dL Total Protein (6.3-8.2) g/dL Albumin (3.5-5.0) g/dL 08/13/19 08/13/19 08/13/19 Range/Units 06:35 07:30 07:30 WBC 16.0 H (3.8-10.6) k/uL RBC 2.26 L (3.80-5.40) m/uL Hgb 6.4 L* D (11.4-16.0) gm/dL Hct 21.0 L (34.0-46.0) % MCHC 30.6 L (31.0-37.0) g/dL RDW 19.7 H (11.5-15.5) % Neutrophils # 13.6 H (1.3-7.7) k/uL Sodium 134 L (137-145) mmol/L Potassium (3.5-5.1) mmol/L Chloride 96 L (98-107) mmol/L BUN 54 H (7-17) mg/dL Creatinine 4.60 H (0.52-1.04) mg/dL Glucose 119 H (74-99) mg/dL POC Glucose (mg/dL) 122 H (75-99) mg/dL Total Protein 4.8 L (6.3-8.2) g/dL Albumin 2.4 L (3.5-5.0) g/dL
[2019-08-13] MEDS: FOLIC ACID-VIT B COMPLEX-VIT C 1 CAP PO SCH (10:35)
[2019-08-13] MEDS: CHOLECALCIFEROL 1,000 UNIT TAB PO SCH (10:35)
[2019-08-13] MEDS: CYANOCOBALAMIN 500 MCG TAB PO SCH (10:35)
[2019-08-13] MEDS: ASPIRIN 81 MG PO SCH (10:37)
[2019-08-13] MEDS: CLOPIDOGREL 75 MG TAB PO SCH (10:37)
[2019-08-13] MEDS: SODIUM FERRIC GLUCONAT-SUCROSE 125 MG in SODIUM CHLORIDE 0.9% 100 ML IVPB SCH (11:57)
[2019-08-13 12:00] LABS: Glucose,Whole Blood 103 mg/dL (75-99)
--- NOTE | 2019-08-13 15:03 | P.PN ---
Subjective Progress Note Date: 08/13/19 This is a pleasant 74-year-old white female who was directly admitted from the OR yesterday where she was undergoing a left toe amputation secondary to gangrene and osteomyelitis of the left great toe and second toe. She subsequently discontinued her insulin a few days prior to the surgery during surgical day and was found to have her blood sugars exceeding 500 she was admitted for further care. I placed her on diabetic insulin sliding scale her regular home medications with with some hydration and her sugars this morning were 117 and much improvement. However I did see that she had a morning meal served so I'm thinking that surgery will be postponed until tomorrow. She currently has no complaints and is feeling well. 07/31/2019 hypoglycemic, received D50, currently nothing by mouth for surgery. Scheduled for amputation of first and second toes of the left foot today with vascular surgery. Denies chest pain, palpitations or shortness of breath. Vital signs stable. Afebrile. 08/01/2019 under amputation of left first and second toes yesterday, tolerated procedure well. Wound VAC present. Increased pain during the night but currently controlled. Scheduled for dialysis today. Vital signs stable. Consumed 50% of breakfast with no nausea vomiting or diarrhea. Denies chest pain, palpitations or shortness of breath. Denies lightheadedness, dizziness or focal deficits. 08/02/2019 pain controlled. Received hemodialysis yesterday. Evaluated by PT/OT with subacute rehab recommended at discharge. Isolated fever 100.4 X 1, normal WBC. Denies chills. afebrile. Vital signs stable. Blood sugars currently controlled. 08/05/2019 periodic fevers with low-grade fever yesterday. Wound cultures reporting MRSA, Pseudomonas, Citrobacter. Blood cultures ordered as per ID, pending. T-max 99.5. Maintained on IV Fortaz, vancomycin, Flagyl as per ID .Sodium 125, scheduled for hemodialysis tomorrow. Receiving IV iron. Consuming 75-100% with blood sugars ranging from 69-101. 08/06/2019 pain improving, wearing pillow boot, dressing appears clean dry and intact. Diet intake improving, no bowel movement. Wound Vac removed this am,necrotic changes with further surgery being discussed between family and vascular surgery. Hemodialysis scheduled for today.maintained on ceftazidime, vancomycin, Flagyl. as per infectious disease. Afebrile.denies chest pain, palpitations or shortness of breath. 08/07/2019 Patient is scheduled for BKA tomorrow. Pain controlled.vital signs stable. Denies chest pain, palpitations or shortness of breath. Denies lightheadedness dizziness or focal deficits.Blood sugars controlled. 08/08/2019 receiving hemodialysis this morning. Blood sugars controlled. Scheduled for BKA today. Maintained on IV antibiotics as per infectious di sease. Afebrile, normal WBC. Denies chest pain, palpitations or shortness of breath. 08/09/2019 status post left BKA, tolerated well. Dressing clean dry and intact. Pain controlled. Vital signs stable, maintaining O2 sats in the 90s on room air. Continues on ceftazidime, Flagyl, vancomycin as per infectious disease. Afebrile. Hyperglycemic, blood sugars in the 200. Denies chest pain, p alpitations or shortness of breath. Denies lightheadedness, dizziness or focal deficits. 08/10/2019 Patient's left BKA stump is clean and no signs of infection. Currently patient is getting hemodialysis. Lying in the bed comfortably and saturating well on room air. was on antibiotics in the form of vancomycin, ceftazidime and Flagyl as per ID recommendations. WBC increased to 15.8. off Antibiotics now. Blood sugars are fairly controlled. No complaints of chest pain or shortness of breath. No nausea vomiting or abdominal pain. No diarrhea. 08/11/2019 Patient is status post left BKA. Currently patient is off antibiotics. WBC count is trending down. Otherwise patient denied any complaints of chest pain or shortness of breath. No nausea vomiting or abdominal pain. Wound stump is clean and dry. Nephrology is following. Patient was started on iron supplementation. No fever no chills. No increased pain. No cough or sputum production. Anticipate discharged to rehab in next 1-2 days. 08/12/2019 significant clinical improvement. Off antibiotics, afebrile. Blood sugars controlled. Scheduled for hemodialysis on Monday. WBC / Hemoglobin pending. Denies pain. Denies chest pain, palpitations or shortness of breath. Denies lightheadedness, dizziness or focal deficits. 08/13/2019 nausea ,vomiting throughout the night. Subsided with Zofran. Hypotensive during hemodialysis with Midodrin ordered as per nephrology. Complains of increased fatigue. Hemoglobin 6.9, one packed unit RBCs to be transfused with dialysis. Afebrile. Blood sugars controlled. Objective - Vital Signs Vital signs: Vital Signs Temp 97.5 F L 08/13/19 13:07 Pulse 70 08/13/19 13:07 Resp 16 08/13/19 13:07 BP 114/84 08/13/19 13:07 Pulse Ox 99 08/13/19 11:58 Intake & Output 08/12/19 08/13/19 08/13/19 18:59 06:59 18:59 Intake Total 300 1300 Output Total 400 150 0 Balance -100 -150 1300 Weight 77.5 kg 77.5 kg Intake: Oral 300 Blood Product 0 Rc As-1 Unit 0 [id number] Hemodialysis 1300 Output: Urine 300 Emesis 100 150 Hemodialysis 0 Other: Voiding Method Bedside Commode Bedside Commode Bedside Commode # Voids 0 0 # Bowel Movements 1 1 2 - Exam GENERAL: Pain in bed, no acute distress, fatigued, pale HEENT: Head is atraumatic, normocephalic. Pupils are equal, round, and reactive to light. Sclerae anicteric. Conjunctivae pale. Mucus membranes of the mouth are moist. Neck is supple. RESPIRATORY: Unlabored, Clear to auscultation. No wheezes, rales, or rhonchi. CARDIOVASCULAR: Regular rate and rhythm. S1 and S2 noted. No systolic or diastolic murmur auscultated. No JVD noted. GASTROINTESTINAL: No distention noted. Abdomen soft and round. Normal active bowel sounds auscultated x 4 quadrants. No pain or tenderness noted upon palpation. INTEGUMENTARY: No cyanosis. No jaundice. No rashes noted. No cellulitis noted. EXTREMITIES: Left BKA, dressing clean dry and intact NEUROLOGIC: Cranial nerves II-XII intact. PSYCHIATRIC: Awake, alert, and oriented X 3. Appropriate affect. Intact judgement and insight. Microbiology 08/04/19 16:48 Blood Blood Culture - Final No Growth after 144 hours 07/31/19 16:15 Toe - Left First Gram Stain - Final 07/31/19 16:15 Toe - Left First Wound Culture - Final Pseudomonas aeruginosa Methicillin resist S. aureus Citrobacter amalonaticus 07/31/19 16:15 Toe - Left First Anaerobic Culture - Final Anaerobic Gm Negative Bacilli - Labs CBC & Chem 7: 08/13/19 07:30 08/13/19 07:30 Labs: Abnormal Lab Results - Last 24 Hours (Table) 08/12/19 08/12/19 08/13/19 Range/Units 16:54 21:20 04:01 WBC (3.8-10.6) k/uL RBC (3.80-5.40) m/uL Hgb (11.4-16.0) gm/dL Hct (34.0-46.0) % MCHC (31.0-37.0) g/dL RDW (11.5-15.5) % Neutrophils # (1.3-7.7) k/uL Sodium (137-145) mmol/L Chloride (98-107) mmol/L BUN (7-17) mg/dL Creatinine (0.52-1.04) mg/dL Glucose (74-99) mg/dL POC Glucose (mg/dL) 160 H 159 H 120 H (75-99) mg/dL Total Protein (6.3-8.2) g/dL Albumin (3.5-5.0) g/dL Crossmatch 08/13/19 08/13/19 08/13/19 Range/Units 06:35 07:30 07:30 WBC 16.0 H (3.8-10.6) k/uL RBC 2.26 L (3.80-5.40) m/uL Hgb 6.4 L* D (11.4-16.0) gm/dL Hct 21.0 L (34.0-46.0) % MCHC 30.6 L (31.0-37.0) g/dL RDW 19.7 H (11.5-15.5) % Neutrophils # 13.6 H (1.3-7.7) k/uL Sodium 134 L (137-145) mmol/L Chloride 96 L (98-107) mmol/L BUN 54 H (7-17) mg/dL Creatinine 4.60 H (0.52-1.04) mg/dL Glucose 119 H (74-99) mg/dL POC Glucose (mg/dL) 122 H (75-99) mg/dL Total Protein 4.8 L (6.3-8.2) g/dL Albumin 2.4 L (3.5-5.0) g/dL Crossmatch 08/13/19 08/13/19 Range/Units 10:00 11:22 WBC (3.8-10.6) k/uL RBC (3.80-5.40) m/uL Hgb (11.4-16.0) gm/dL Hct (34.0-46.0) % MCHC (31.0-37.0) g/dL RDW (11.5-15.5) % Neutrophils # (1.3-7.7) k/uL Sodium (137-145) mmol/L Chloride (98-107) mmol/L BUN (7-17) mg/dL Creatinine (0.52-1.04) mg/dL Glucose (74-99) mg/dL POC Glucose (mg/dL) 103 H (75-99) mg/dL Total Protein (6.3-8.2) g/dL Albumin (3.5-5.0) g/dL Crossmatch See Detail Assessment and Plan Assessment: (1) Acute osteomyelitis left foot with Gangrene of left lower extremity concurrent with atherosclerosis of bypass graft, status post amputation left first and second toes. MRSA, Pseudomonas, Citrobacter Amalonaticusand anaerobic gram-negative bacilli. Status post left BKA Current Visit: Yes Status: Acute Code(s): I70.362 - ATHSCL UNSP TYPE BYPASS OF THE EXTRM W GANGR[place], LEFT LEG SNOMED Code(s): 74008651681076458 (2) Insulin-requiring or dependent type II diabetes mellitus, HGBA1C 7.7 Current Visit: Yes Status: Acute Code(s): E11.9 - TYPE 2 DIABETES MELLITUS WITHOUT COMPLICATIONS; Z79.4 - CARE HOME (CURRENT) USE OF INSULIN SNOMED Code(s): 617946420 (3) Hyperglycemic crisis in diabetes mellitus Current Visit: Yes Status: Acute Code(s): E11.65 - TYPE 2 DIABETES MELLITUS WITH HYPERGLYCEMIA SNOMED Code(s): 345230602 (4) Acute on chronic renal failure, end-stage renal disease, on hemodialysis Current Visit: No Status: Acute Code(s): N17.9 - ACUTE KIDNEY FAILURE, UNSPECIFIED; N18.9 - CHRONIC KIDNEY DISEASE, UNSPECIFIED SNOMED Code(s): 891777047 (5) Anemia of chronic disease Current Visit: No Status: Acute Code(s): D63.8 - ANEMIA IN OTHER CHRONIC DISEASES CLASSIFIED ELSEWHERE SNOMED Code(s): 650111702 (6) Atherosclerosis of [place] arteries of left leg with ulceration of other part of foot Current Visit: No Status: Acute Code(s): I70.245 - ATHSCL [place] ARTERIES OF LEFT LEG W ULCERATION OTH PRT FOOT SNOMED Code(s): 224217242162021 (7) Chronic kidney disease with end stage renal disease on dialysis due to type 2 diabetes mellitus Current Visit: Yes Status: Acute Code(s): E11.22 - TYPE 2 DIABETES MELLITUS W DIABETIC CHRONIC KIDNEY DISEASE; N18.6 - END STAGE RENAL DISEASE; Z99.2 - DEPENDENCE ON RENAL DIALYSIS SNOMED Code(s): 477899675533 (8) hyponatremia secondary to chronic kidney disease (9) hypertension Plan: Continue on current medication regime , Zofran, monitoring and symptomatic treatment.labs pending. Hypotensive during Hemodialysis, Midodrin ordered as per nephrology. Transfuse One unit of packed RBCs. Continue with aggressive pulmonary toileting with incentive spirometer reinforced. The impression and plan of care has been dictated as directed. : I performed a history and examination of this patient, discussed the same with the dictator. I agree with the dictator's note ,documented as a scribe. Any additional findings or plans will be noted.
[2019-08-13] MEDS: FUROSEMIDE 40 MG TAB PO SCH (16:44)
[2019-08-13 17:02] LABS: Glucose,Whole Blood 89 mg/dL (75-99)
[2019-08-13] MEDS: CITALOPRAM HYDROBROMIDE 20 MG TAB PO SCH (17:50)
[2019-08-13] MEDS: VANCOMYCIN ORAL SOLUTION 250 MG/5 ML BOTTLE PO SCH ×2 (18:53→23:41)
[2019-08-13] MEDS: CHERRY FLAVOR 60 ML BOTTLE PO SCH ×2 (18:53→23:42)
--- NOTE | 2019-08-13 19:03 | PN ---
PROGRESS NOTE DATE OF SERVICE: 08/13/2019. REASON FOR FOLLOWUP: Diarrhea and elevated white count, question of C difficile. INTERVAL HISTORY: The patient's discharge has been put on hold, as the patient was getting more weak and lethargic. She also noticed to have a drop in her hemoglobin as well as elevated white count. The patient denies having any chest pain or shortness of breath or cough. No abdominal pain. However, the nurse multiple loose stools. PHYSICAL EXAMINATION: Blood pressure is 113/56, pulse of 79, temperature 97.6. She is 95% on room air. General description is an elderly female lying in bed in no distress. RESPIRATORY SYSTEM: Unlabored breathing. Clear to auscultation anteriorly. HEART: S1, S2. Regular rate and rhythm. ABDOMEN: Soft. No tenderness. LABS: White count elevated at 16. DIAGNOSTIC IMPRESSION AND PLAN: Patient with diarrhea and elevated white count in this patient who did have left foot osteomyelitis and exposure to antibiotic with concern for possible Clostridium difficile. Blood cultures have been requested. for C difficile. Empirically add vancomycin 250 p.o. q.6 hours. Recheck CBC tomorrow. Continue with supportive care. MMODL / IJN: [id number] /
--- NOTE | 2019-08-13 20:09 | PN ---
PROGRESS NOTE Patient is seen for followup for end-stage renal disease. This morning she is seen on hemodialysis. Patient's blood pressure was low. Her CBC came back with hemoglobin of 6.4. She will be transfused packed RBCs. We are not removing any fluid. Patient has had poor oral intake. On examination this morning, blood pressure was 96/53, heart rate 67 per minute. Patient is afebrile. EXAMINATION OF THE HEART: S1 and S2. EXAMINATION OF LUNGS: Bilateral breath sounds are heard. ABDOMEN: Soft, non-tender. Examination of lower extremities shows left BKA site, currently dressed. Labs show hemoglobin 6.4, white cell count 16.0. Sodium 134, potassium 4.4. BUN 54, creatinine 4.6. ASSESSMENT: 1. End-stage renal disease, on hemodialysis on a Monday, , Monday schedule. 2. Peripheral vascular disease, status post left below-knee amputation. 3. Severe anemia. No active bleeding noted. Patient will be transfused packed RBCs. She is maintained on Aranesp. 4. Chronic kidney disease mineral bone disorder, maintained on MagnaBind and PhosLo. 5. Coronary artery disease with history of coronary artery bypass surgery. PLAN: Hemodialysis today. Transfuse packed RBCs with dialysis. No significant ultrafiltration today. Patient is encouraged to increase oral intake when she is feeling better. MMODL / IJN: [id number] /
[2019-08-13 21:06] LABS: Glucose,Whole Blood 95 mg/dL (75-99)
[2019-08-13] MEDS: LISINOPRIL 10 MG TAB PO SCH (22:01)
[2019-08-13] MEDS: ATORVASTATIN 80 MG TAB PO SCH (22:01)
[2019-08-14 02:00] LABS: Glucose,Whole Blood 75 mg/dL (75-99)
[2019-08-14 06:34] LABS: Glucose,Whole Blood 73 mg/dL (75-99)
[2019-08-14] MEDS: CHERRY FLAVOR 60 ML BOTTLE PO SCH ×3 (06:46→16:37)
[2019-08-14] MEDS: VANCOMYCIN ORAL SOLUTION 250 MG/5 ML BOTTLE PO SCH ×2 (06:46→11:47)
[2019-08-14] MEDS: CALCIUM CARB-MAG CARB-FOLIC 1 EACH TAB PO SCH ×3 (06:47→16:37)
[2019-08-14] MEDS: CALCIUM ACETATE 667 MG CAP PO SCH ×2 (06:47→16:37)
[2019-08-14] MEDS: LACTATED RINGERS 1,000 ML IV SCH ×2 (06:51→07:54)
[2019-08-14] MEDS: CLOPIDOGREL 75 MG TAB PO SCH (07:53)
[2019-08-14] MEDS: CHOLECALCIFEROL 1,000 UNIT TAB PO SCH (07:53)
[2019-08-14] MEDS: FOLIC ACID-VIT B COMPLEX-VIT C 1 CAP PO SCH (07:53)
[2019-08-14] MEDS: INSULIN ASPART (NovoLOG) 100 UNIT/ML VIAL SQ SCH ×4 (07:53→23:30)
[2019-08-14] MEDS: CITALOPRAM HYDROBROMIDE 20 MG TAB PO SCH (07:53)
[2019-08-14] MEDS: FUROSEMIDE 40 MG TAB PO SCH (07:53)
[2019-08-14] MEDS: CYANOCOBALAMIN 500 MCG TAB PO SCH (07:53)
[2019-08-14] MEDS: ASPIRIN 81 MG PO SCH (07:54)
[2019-08-14] MEDS: INSULIN DETEMIR (LEVEMIR) 100 UNIT/ML SYR SQ SCH (07:54)
--- NOTE | 2019-08-14 08:49 | P.PN ---
Subjective Progress Note Date: 08/14/19 Patient seen and examined. Feeling better today than yesterday No acute distress. More alert, answering questions appropriately No respiratory distress heart regular Left lower extremity dressing intact, knee immobilizer not on postop left below knee amputation Severe peripheral arterial disease Patient doing okay overall. Appears stable for discharge at this point. Continue to monitor. Dialysis as ordered. Activity as tolerated, up to chair today. Objective - Vital Signs Vital signs: Vital Signs Temp 97.6 F 08/14/19 04:00 Pulse 69 08/14/19 04:00 Resp 18 08/14/19 04:00 BP 108/55 08/14/19 04:00 Pulse Ox 96 08/14/19 04:00 Intake & Output 08/13/19 08/14/19 08/14/19 18:59 06:59 18:59 Intake Total 1730 Output Total 0 300 0 Balance 1730 -300 0 Weight 77.5 kg 84 kg Intake: Oral 120 Blood Product 310 Rc As-1 Unit 310 [id number] Hemodialysis 1300 Output: Urine 300 0 Hemodialysis 0 Other: Voiding Method Bedside Commode Bedside Commode # Voids 0 0 # Bowel Movements 1 - Labs CBC & Chem 7: 08/13/19 07:30 08/13/19 07:30 Labs: Abnormal Lab Results - Last 24 Hours (Table) 08/13/19 08/13/19 08/13/19 Range/Units 07:30 07:30 10:00 WBC 16.0 H (3.8-10.6) k/uL RBC 2.26 L (3.80-5.40) m/uL Hgb 6.4 L* D (11.4-16.0) gm/dL Hct 21.0 L (34.0-46.0) % MCHC 30.6 L (31.0-37.0) g/dL RDW 19.7 H (11.5-15.5) % Neutrophils # 13.6 H (1.3-7.7) k/uL Sodium 134 L (137-145) mmol/L Chloride 96 L (98-107) mmol/L BUN 54 H (7-17) mg/dL Creatinine 4.60 H (0.52-1.04) mg/dL Glucose 119 H (74-99) mg/dL POC Glucose (mg/dL) (75-99) mg/dL Total Protein 4.8 L (6.3-8.2) g/dL Albumin 2.4 L (3.5-5.0) g/dL Crossmatch See Detail 08/13/19 08/14/19 Range/Units 11:22 06:32 WBC (3.8-10.6) k/uL RBC (3.80-5.40) m/uL Hgb (11.4-16.0) gm/dL Hct (34.0-46.0) % MCHC (31.0-37.0) g/dL RDW (11.5-15.5) % Neutrophils # (1.3-7.7) k/uL Sodium (137-145) mmol/L Chloride (98-107) mmol/L BUN (7-17) mg/dL Creatinine (0.52-1.04) mg/dL Glucose (74-99) mg/dL POC Glucose (mg/dL) 103 H 73 L (75-99) mg/dL Total Protein (6.3-8.2) g/dL Albumin (3.5-5.0) g/dL Crossmatch
[2019-08-14 09:57] LABS: Anisocytosis Moderate; Basophils # (A) 0.1 k/uL (0-0.2); Basophils % (A) 1 %; Eosinophils # (A) 0.6 k/uL (0-0.7); Eosinophils % (A) 3 %; HGB 7.3 gm/dL (11.4-16.0); Hypochromasia Marked; Lymphocytes # (A) 1.8 k/uL (1.0-4.8); Lymphocytes % (A) 9 %; MCH 30.8 pg (25.0-35.0); MCV 93.3 fL (80.0-100.0); Macrocytosis Slight; Monocytes % (A) 5 %; Neutrophils # (A) 16.2 k/uL (1.3-7.7); Neutrophils % (A) 81 %; Platelet Count 273 k/uL (150-450); Poikilocytosis Slight; RBC 2.36 m/uL (3.80-5.40); RDW 22.1 % (11.5-15.5); WBC 20.1 k/uL (3.8-10.6)
[2019-08-14 10:28] LABS: Large Platelets Present; Polychromasia Present
[2019-08-14] MEDS: HYDROcodone/APAP 5-325MG 1 EACH TAB PO PRN (11:09)
[2019-08-14 11:47] LABS: Glucose,Whole Blood 131 mg/dL (75-99)
--- NOTE | 2019-08-14 12:14 | PN ---
PROGRESS NOTE Patient is seen for followup for end-stage renal disease. She was dialyzed yesterday. Patient was transfused packed RBCs. She states she is feeling slightly better. Her dressing will be changed today. PHYSICAL EXAMINATION: Blood pressure is 112/55, heart rate 77 per minute. She is afebrile. Examination of the heart S1, S2. Examination of the lungs, bilateral breath sounds are heard. Abdomen is soft, nontender, obese. Examination of the lower extremities shows no edema right leg. Left BKA noted. ASSESSMENT: 1. End-stage renal disease, on hemodialysis on a Monday, , Monday schedule. We will arrange for hemodialysis in a.m. 2. Severe peripheral vascular disease, status post left BKA. 3. Anemia, postoperatively status post packed RBCs transfusion. Patient is maintained on Aranesp. 4. Type 2 diabetes. 5. CKD mineral bone disorder, maintained on PhosLo. PLAN: Check CBC today. We will plan for hemodialysis in a.m. MMODL / IJN: [id number] /
[2019-08-14] MEDS ORDERED: VANCOMYCIN IV PER PHARMACY 1 EACH MISC MISCELLANE PRN (14:33)
[2019-08-14] MEDS ORDERED: VANCOMYCIN 1,500 MG in SODIUM CHLORIDE 0.9% 250 ML IVPB ONE (15:00)
--- NOTE | 2019-08-14 15:32 | PN ---
PROGRESS NOTE DATE OF SERVICE: 08/14/2019 REASON FOR FOLLOWUP: Worsening leukocytosis. INTERVAL HISTORY: The patient is currently afebrile. Patient explains she is feeling better compared to yesterday, though the patient's diarrhea has improved. The patient denies having any chest pain or shortness of breath or cough. She is currently on room air. No abdominal pain. Denies pain to the left BKA site. PHYSICAL EXAMINATION: Blood pressure 112/55 with a pulse of 77, temperature 97.7, she is 98% on room air. General description is an elderly female, lying in bed in no distress. HEENT: Examination oral thrush. LUNGS: Unlabored breathing. clear to auscultation anteriorly. HEART: S1, S2. Regular rate and rhythm. ABDOMEN: Soft, no tenderness. Left BKA stump is currently dressed up by facility with instruction not to touch it. RN mentioned at the time of dressing changes by her, the incision looks clean. However, she still has draining. LABS: White count of 20,000. Blood cultures obtained yesterday have been negative so far. Stool for Clostridium difficile came back negative. DIAGNOSTIC IMPRESSION AND PLAN: Patient with left first and second toe wet gangrene with osteomyelitis, status post amputation. Subsequently did have left [id number] amputation. Patient now seems to have worsening of the white count since 08/10, that is when her antibiotics were discontinued and we do not other clinical focus on this patient. She did have some diarrhea, but stool for Clostridium difficile was negative. Blood culture obtained yesterday so far pending. Will restart her vancomycin. Repeat CBC tomorrow and monitor clinical course closely. MMODL / IJN: [id number] /
--- NOTE | 2019-08-14 15:47 | P.PN ---
Subjective Progress Note Date: 08/14/19 This is a pleasant 74-year-old white female who was directly admitted from the OR yesterday where she was undergoing a left toe amputation secondary to gangrene and osteomyelitis of the left great toe and second toe. She subsequently discontinued her insulin a few days prior to the surgery during surgical day and was found to have her blood sugars exceeding 500 she was admitted for further care. I placed her on diabetic insulin sliding scale her regular home medications with with some hydration and her sugars this morning were 117 and much improvement. However I did see that she had a morning meal served so I'm thinking that surgery will be postponed until tomorrow. She currently has no complaints and is feeling well. 07/31/2019 hypoglycemic, received D50, currently nothing by mouth for surgery. Scheduled for amputation of first and second toes of the left foot today with vascular surgery. Denies chest pain, palpitations or shortness of breath. Vital signs stable. Afebrile. 08/01/2019 under amputation of left first and second toes yesterday, tolerated procedure well. Wound VAC present. Increased pain during the night but currently controlled. Scheduled for dialysis today. Vital signs stable. Consumed 50% of breakfast with no nausea vomiting or diarrhea. Denies chest pain, palpitations or shortness of breath. Denies lightheadedness, dizziness or focal deficits. 08/02/2019 pain controlled. Received hemodialysis yesterday. Evaluated by PT/OT with subacute rehab recommended at discharge. Isolated fever 100.4 X 1, normal WBC. Denies chills. afebrile. Vital signs stable. Blood sugars currently controlled. 08/05/2019 periodic fevers with low-grade fever yesterday. Wound cultures reporting MRSA, Pseudomonas, Citrobacter. Blood cultures ordered as per ID, pending. T-max 99.5. Maintained on IV Fortaz, vancomycin, Flagyl as per ID .Sodium 125, scheduled for hemodialysis tomorrow. Receiving IV iron. Consuming 75-100% with blood sugars ranging from 69-101. 08/06/2019 pain improving, wearing pillow boot, dressing appears clean dry and intact. Diet intake improving, no bowel movement. Wound Vac removed this am,necrotic changes with further surgery being discussed between family and vascular surgery. Hemodialysis scheduled for today.maintained on ceftazidime, vancomycin, Flagyl. as per infectious disease. Afebrile.denies chest pain, palpitations or shortness of breath. 08/07/2019 Patient is scheduled for BKA tomorrow. Pain controlled.vital signs stable. Denies chest pain, palpitations or shortness of breath. Denies lightheadedness dizziness or focal deficits.Blood sugars controlled. 08/08/2019 receiving hemodialysis this morning. Blood sugars controlled. Scheduled for BKA today. Maintained on IV antibiotics as per infectious di sease. Afebrile, normal WBC. Denies chest pain, palpitations or shortness of breath. 08/09/2019 status post left BKA, tolerated well. Dressing clean dry and intact. Pain controlled. Vital signs stable, maintaining O2 sats in the 90s on room air. Continues on ceftazidime, Flagyl, vancomycin as per infectious disease. Afebrile. Hyperglycemic, blood sugars in the 200. Denies chest pain, p alpitations or shortness of breath. Denies lightheadedness, dizziness or focal deficits. 08/10/2019 Patient's left BKA stump is clean and no signs of infection. Currently patient is getting hemodialysis. Lying in the bed comfortably and saturating well on room air. was on antibiotics in the form of vancomycin, ceftazidime and Flagyl as per ID recommendations. WBC increased to 15.8. off Antibiotics now. Blood sugars are fairly controlled. No complaints of chest pain or shortness of breath. No nausea vomiting or abdominal pain. No diarrhea. 08/11/2019 Patient is status post left BKA. Currently patient is off antibiotics. WBC count is trending down. Otherwise patient denied any complaints of chest pain or shortness of breath. No nausea vomiting or abdominal pain. Wound stump is clean and dry. Nephrology is following. Patient was started on iron supplementation. No fever no chills. No increased pain. No cough or sputum production. Anticipate discharged to rehab in next 1-2 days. 08/12/2019 significant clinical improvement. Off antibiotics, afebrile. Blood sugars controlled. Scheduled for hemodialysis on Monday. WBC / Hemoglobin pending. Denies pain. Denies chest pain, palpitations or shortness of breath. Denies lightheadedness, dizziness or focal deficits. 08/13/2019 nausea ,vomiting throughout the night. Subsided with Zofran. Hypotensive during hemodialysis with Midodrin ordered as per nephrology. Complains of increased fatigue. Hemoglobin 6.9, one packed unit RBCs to be transfused with dialysis. Afebrile. Blood sugars controlled. 08/14/2019 hemoglobin 7.3 status post transfusion yesterday. Scheduled for hemodialysis in a.m. Afebrile, WBC up to 20.1. Repeat Preliminary blood cultures negative. Diarrhea improving, Stool negative for C. diff .Diet intake poor. Nausea/vomiting improving with Zofran. Vital signs stable. Denies pain. Denies chest pain, palpitations or shortness of breath. Maintaining O2 sats in the high 90s on room air. Objective - Vital Signs Vital signs: Vital Signs Temp 97.7 F 08/14/19 08:00 Pulse 77 08/14/19 12:00 Resp 20 08/14/19 12:00 BP 103/51 08/14/19 12:00 Pulse Ox 97 08/14/19 12:00 Intake & Output 08/13/19 08/14/19 08/14/19 18:59 06:59 18:59 Intake Total 1730 420 Output Total 0 300 0 Balance 1730 -300 420 Weight 77.5 kg 84 kg Intake: Oral 120 420 Blood Product 310 Rc As-1 Unit 310 [id number] Hemodialysis 1300 Output: Urine 300 0 Hemodialysis 0 Other: Voiding Method Bedside Commode Bedside Commode Bedside Commode # Voids 0 0 # Bowel Movements 1 - Exam GENERAL: Pain in bed, no acute distress, tired, pale HEENT: Head is atraumatic, normocephalic. Pupils are equal, round, and reactive to light. Sclerae anicteric. Conjunctivae pale. Mucus membranes of the mouth are moist. Neck is supple. RESPIRATORY: Unlabored, Clear to auscultation. No wheezes, rales, or rhonchi. CARDIOVASCULAR: Regular rate and rhythm. S1 and S2 noted. No systolic or diastolic murmur auscultated. No JVD noted. GASTROINTESTINAL: No distention noted. Abdomen soft and round. Normal active bowel sounds auscultated x 4 quadrants. No pain or tenderness noted upon palpation. INTEGUMENTARY: No cyanosis. No jaundice. No rashes noted. No cellulitis noted. EXTREMITIES: Left BKA, dressing clean dry and intact NEUROLOGIC: Cranial nerves II-XII intact. PSYCHIATRIC: Awake, alert, and oriented X 3. Appropriate affect. Intact judgement and insight. Microbiology 08/13/19 12:00 Blood Blood Culture - Preliminary No Growth after 24 hours 08/04/19 16:48 Blood Blood Culture - Final No Growth after 144 hours 07/31/19 16:15 Toe - Left First Gram Stain - Final 07/31/19 16:15 Toe - Left First Wound Culture - Final Pseudomonas aeruginosa Methicillin resist S. aureus Citrobacter amalonaticus 07/31/19 16:15 Toe - Left First Anaerobic Culture - Final Anaerobic Gm Negative Bacilli - Labs CBC & Chem 7: 08/14/19 09:31 08/13/19 07:30 Labs: Abnormal Lab Results - Last 24 Hours (Table) 08/13/19 08/14/19 08/14/19 Range/Units 10:00 06:32 09:31 WBC 20.1 H (3.8-10.6) k/uL RBC 2.36 L (3.80-5.40) m/uL Hgb 7.3 L (11.4-16.0) gm/dL Hct 22.0 L (34.0-46.0) % RDW 22.1 H (11.5-15.5) % Neutrophils # 16.2 H (1.3-7.7) k/uL POC Glucose (mg/dL) 73 L (75-99) mg/dL Crossmatch See Detail 08/14/19 Range/Units 11:44 WBC (3.8-10.6) k/uL RBC (3.80-5.40) m/uL Hgb (11.4-16.0) gm/dL Hct (34.0-46.0) % RDW (11.5-15.5) % Neutrophils # (1.3-7.7) k/uL POC Glucose (mg/dL) 131 H (75-99) mg/dL Crossmatch Microbiology - Last 24 Hours (Table) 08/13/19 12:00 Blood Culture - Preliminary Blood No Growth after 24 hours Assessment and Plan Assessment: (1) Acute osteomyelitis left foot with Gangrene of left lower extremity concurrent with atherosclerosis of bypass graft, status post amputation left first and second toes. MRSA, Pseudomonas, Citrobacter Amalonaticusand anaerobic gram-negative bacilli. Status post left BKA Current Visit: Yes Status: Acute Code(s): I70.362 - ATHSCL UNSP TYPE BYPASS OF THE EXTRM W GANGRENE, LEFT LEG SNOMED Code(s): 12418414880511971 (2) Insulin-requiring or dependent type II diabetes mellitus, HGBA1C 7.7 Current Visit: Yes Status: Acute Code(s): E11.9 - TYPE 2 DIABETES MELLITUS WITHOUT COMPLICATIONS; Z79.4 - RESIDENTIAL (CURRENT) USE OF INSULIN SNOMED Code(s): 718159573 (3) Hyperglycemic crisis in diabetes mellitus Current Visit: Yes Status: Acute Code(s): E11.65 - TYPE 2 DIABETES MELLITUS WITH HYPERGLYCEMIA SNOMED Code(s): 849096163 (4) Acute on chronic renal failure, end-stage renal disease, on hemodialysis Current Visit: No Status: Acute Code(s): N17.9 - ACUTE KIDNEY FAILURE, UNSPECIFIED; N18.9 - CHRONIC KIDNEY DISEASE, UNSPECIFIED SNOMED Code(s): 701824046 (5) Anemia of chronic disease Current Visit: No Status: Acute Code(s): D63.8 - ANEMIA IN OTHER CHRONIC DISEASES CLASSIFIED ELSEWHERE SNOMED Code(s): 088021925 (6) Atherosclerosis of [place] arteries of left leg with ulceration of other part of foot Current Visit: No Status: Acute Code(s): I70.245 - ATHSCL [place] ARTERIES OF LEFT LEG W ULCERATION OTH PRT FOOT SNOMED Code(s): 910665239593269 (7) Chronic kidney disease with end stage renal disease on dialysis due to type 2 diabetes mellitus Current Visit: Yes Status: Acute Code(s): E11.22 - TYPE 2 DIABETES MELLITUS W DIABETIC CHRONIC KIDNEY DISEASE; N18.6 - END STAGE RENAL DISEASE; Z99.2 - DEPENDENCE ON RENAL DIALYSIS SNOMED Code(s): 650367454658 (8) hyponatremia secondary to chronic kidney disease (9) hypertension Plan: Continue on current medication regime , Zofran, monitoring and symptomatic treatment.labs pending. Worsening WBC, antibiotics as per ID -follow closely with infectious disease .Hemodialysis, Midodrin as per nephrology. Continue with aggressive pulmonary toileting with incentive spirometer reinforced. Dietary consulted. Close monitoring of CBC with repeat labs ordered for a.m. Prognosis guarded given Multiple complex medical issues. The impression and plan of care has been dictated as directed. : I performed a history and examination of this patient, discussed the same with the dictator. I agree with the dictator's note ,documented as a scribe. Any additional findings or plans will be noted.
[2019-08-14 17:13] LABS: Glucose,Whole Blood 148 mg/dL (75-99)
[2019-08-14 20:01] LABS: Glucose,Whole Blood 173 mg/dL (75-99)
[2019-08-14] MEDS: ATORVASTATIN 80 MG TAB PO SCH (23:30)
[2019-08-14] MEDS: LISINOPRIL 10 MG TAB PO SCH (23:30)
[2019-08-15 06:23] LABS: Glucose,Whole Blood 76 mg/dL (75-99)
[2019-08-15] MEDS: CALCIUM CARB-MAG CARB-FOLIC 1 EACH TAB PO SCH ×3 (06:46→17:28)
[2019-08-15] MEDS: CALCIUM ACETATE 667 MG CAP PO SCH ×2 (06:46→17:28)
[2019-08-15 06:48] LABS: Anisocytosis Moderate; HCT 22.5 % (34.0-46.0); HGB 7.2 gm/dL (11.4-16.0); Hypochromasia Marked; MCH 30.6 pg (25.0-35.0); MCV 95.8 fL (80.0-100.0); Macrocytosis Slight; Mean Platelet Volume 8.3; Platelet Count 245 k/uL (150-450); RBC 2.35 m/uL (3.80-5.40); RDW 22.6 % (11.5-15.5)
[2019-08-15 07:06] LABS: Albumin 2.4 g/dL (3.5-5.0); Calcium 9.1 mg/dL (8.4-10.2); Potassium 4.7 mmol/L (3.5-5.1)
[2019-08-15] MEDS: INSULIN DETEMIR (LEVEMIR) 100 UNIT/ML SYR SQ SCH (07:33)
[2019-08-15] MEDS: INSULIN ASPART (NovoLOG) 100 UNIT/ML VIAL SQ SCH ×4 (07:34→23:08)
[2019-08-15 08:32] LABS: Band Neutrophils % 1 %; Eosinophils # (M) 0.43 k/uL (0-0.7); Lymphocytes # (M) 2.14 k/uL (1.0-4.8); Metamyelocytes # (M) 0.21 k/uL (0); Metamyelocytes % 1 %; Neutrophils % (M) 80 %; Nucleated Red Blood Cells 1 /100 WBC (0-0); Total Cells Counted 200; WBC 21.4 k/uL (3.8-10.6)
[2019-08-15 08:33] LABS: Poikilocytosis (M) Present; Polychromasia Present
[2019-08-15] MEDS ORDERED: MIDODRINE 5 MG TAB PO PRN (08:47)
[2019-08-15] MEDS: LACTATED RINGERS 1,000 ML IV SCH (10:08)
[2019-08-15] MEDS ORDERED: FLUCONAZOLE IN NACL,ISO-OSM 200 MG in SALINE 1 50ML.BAG IVPB STA (11:20)
[2019-08-15 11:29] LABS: Glucose,Whole Blood 79 mg/dL (75-99)
[2019-08-15] MEDS ORDERED: FLUCONAZOLE IN NACL,ISO-OSM 200 MG in SALINE 1 100ML.BAG IVPB STA (11:36)
[2019-08-15] MEDS: FOLIC ACID-VIT B COMPLEX-VIT C 1 CAP PO SCH (11:44)
[2019-08-15] MEDS: CYANOCOBALAMIN 500 MCG TAB PO SCH (11:44)
[2019-08-15] MEDS: CITALOPRAM HYDROBROMIDE 20 MG TAB PO SCH (11:44)
[2019-08-15] MEDS: CHOLECALCIFEROL 1,000 UNIT TAB PO SCH (11:44)
[2019-08-15] MEDS: CLOPIDOGREL 75 MG TAB PO SCH (11:44)
[2019-08-15] MEDS: FUROSEMIDE 40 MG TAB PO SCH (11:44)
[2019-08-15] MEDS: ASPIRIN 81 MG PO SCH (11:44)
[2019-08-15] MEDS ORDERED: VANCOMYCIN 1,250 MG in SODIUM CHLORIDE 0.9% 250 ML IVPB ONE (12:00)
[2019-08-15] MEDS: NYSTATIN 100,000 UNIT/ML SUSP 500,000 UNIT/5 ML CUP PO SCH ×2 (12:31→17:28)
[2019-08-15 13:59] VITALS: BMI 33.5
--- NOTE | 2019-08-15 14:00 | P.PN ---
Subjective Progress Note Date: 08/15/19 This is a pleasant 74-year-old white female who was directly admitted from the OR yesterday where she was undergoing a left toe amputation secondary to gangrene and osteomyelitis of the left great toe and second toe. She subsequently discontinued her insulin a few days prior to the surgery during surgical day and was found to have her blood sugars exceeding 500 she was admitted for further care. I placed her on diabetic insulin sliding scale her regular home medications with with some hydration and her sugars this morning were 117 and much improvement. However I did see that she had a morning meal served so I'm thinking that surgery will be postponed until tomorrow. She currently has no complaints and is feeling well. 07/31/2019 hypoglycemic, received D50, currently nothing by mouth for surgery. Scheduled for amputation of first and second toes of the left foot today with vascular surgery. Denies chest pain, palpitations or shortness of breath. Vital signs stable. Afebrile. 08/01/2019 under amputation of left first and second toes yesterday, tolerated procedure well. Wound VAC present. Increased pain during the night but currently controlled. Scheduled for dialysis today. Vital signs stable. Consumed 50% of breakfast with no nausea vomiting or diarrhea. Denies chest pain, palpitations or shortness of breath. Denies lightheadedness, dizziness or focal deficits. 08/02/2019 pain controlled. Received hemodialysis yesterday. Evaluated by PT/OT with subacute rehab recommended at discharge. Isolated fever 100.4 X 1, normal WBC. Denies chills. afebrile. Vital signs stable. Blood sugars currently controlled. 08/05/2019 periodic fevers with low-grade fever yesterday. Wound cultures reporting MRSA, Pseudomonas, Citrobacter. Blood cultures ordered as per ID, pending. T-max 99.5. Maintained on IV Fortaz, vancomycin, Flagyl as per ID .Sodium 125, scheduled for hemodialysis tomorrow. Receiving IV iron. Consuming 75-100% with blood sugars ranging from 69-101. 08/06/2019 pain improving, wearing pillow boot, dressing appears clean dry and intact. Diet intake improving, no bowel movement. Wound Vac removed this am,necrotic changes with further surgery being discussed between family and vascular surgery. Hemodialysis scheduled for today.maintained on ceftazidime, vancomycin, Flagyl. as per infectious disease. Afebrile.denies chest pain, palpitations or shortness of breath. 08/07/2019 Patient is scheduled for BKA tomorrow. Pain controlled.vital signs stable. Denies chest pain, palpitations or shortness of breath. Denies lightheadedness dizziness or focal deficits.Blood sugars controlled. 08/08/2019 receiving hemodialysis this morning. Blood sugars controlled. Scheduled for BKA today. Maintained on IV antibiotics as per infectious di sease. Afebrile, normal WBC. Denies chest pain, palpitations or shortness of breath. 08/09/2019 status post left BKA, tolerated well. Dressing clean dry and intact. Pain controlled. Vital signs stable, maintaining O2 sats in the 90s on room air. Continues on ceftazidime, Flagyl, vancomycin as per infectious disease. Afebrile. Hyperglycemic, blood sugars in the 200. Denies chest pain, p alpitations or shortness of breath. Denies lightheadedness, dizziness or focal deficits. 08/10/2019 Patient's left BKA stump is clean and no signs of infection. Currently patient is getting hemodialysis. Lying in the bed comfortably and saturating well on room air. was on antibiotics in the form of vancomycin, ceftazidime and Flagyl as per ID recommendations. WBC increased to 15.8. off Antibiotics now. Blood sugars are fairly controlled. No complaints of chest pain or shortness of breath. No nausea vomiting or abdominal pain. No diarrhea. 08/11/2019 Patient is status post left BKA. Currently patient is off antibiotics. WBC count is trending down. Otherwise patient denied any complaints of chest pain or shortness of breath. No nausea vomiting or abdominal pain. Wound stump is clean and dry. Nephrology is following. Patient was started on iron supplementation. No fever no chills. No increased pain. No cough or sputum production. Anticipate discharged to rehab in next 1-2 days. 08/12/2019 significant clinical improvement. Off antibiotics, afebrile. Blood sugars controlled. Scheduled for hemodialysis on Monday. WBC / Hemoglobin pending. Denies pain. Denies chest pain, palpitations or shortness of breath. Denies lightheadedness, dizziness or focal deficits. 08/13/2019 nausea ,vomiting throughout the night. Subsided with Zofran. Hypotensive during hemodialysis with Midodrin ordered as per nephrology. Complains of increased fatigue. Hemoglobin 6.9, one packed unit RBCs to be transfused with dialysis. Afebrile. Blood sugars controlled. 08/14/2019 hemoglobin 7.3 status post transfusion yesterday. Scheduled for hemodialysis in a.m. Afebrile, WBC up to 20.1. Repeat Preliminary blood cultures negative. Diarrhea improving, Stool negative for C. diff .Diet intake poor. Nausea/vomiting improving with Zofran. Vital signs stable. Denies pain. Denies chest pain, palpitations or shortness of breath. Maintaining O2 sats in the high 90s on room air. 08/15/2019 Discharge placed on hold, WBC continues trending up, further recommendations pending from infectious disease. 30 sec run of nonsustained V. tach this morning, asymptomatic. EKG ordered, cardiology consulted. Magnesium level pending. Objective - Vital Signs Vital signs: Vital Signs Temp 97.6 F 08/15/19 13:41 Pulse 72 08/15/19 13:41 Resp 20 08/15/19 13:41 BP 126/76 08/15/19 13:41 Pulse Ox 98 08/15/19 11:26 Intake & Output 08/14/19 08/15/19 08/15/19 18:59 06:59 18:59 Intake Total 420 240 Output Total 402 400 Balance 18 -400 240 Weight 84.4 kg Intake: Intake, IV Titration 60 Amount Lactated Ringers 1,000 ml 60 @ 20 mls/hr IV .Q24H JONH Rx#:[id number] Oral 420 180 Output: Urine 402 400 Other: Voiding Method Bedside Commode Bedside Commode # Voids 0 # Bowel Movements 1 1 - Exam GENERAL: Sitting up in bed, no acute distress, HEENT: Head is atraumatic, normocephalic. Pupils are equal, round, and reactive to light. Sclerae anicteric. Conjunctivae pale. Mucus membranes of the mouth are moist. Neck is supple. RESPIRATORY: Unlabored, Clear to auscultation. No wheezes, rales, or rhonchi. CARDIOVASCULAR: Regular rate and rhythm. S1 and S2 noted. No systolic or diastolic murmur auscultated. No JVD noted. GASTROINTESTINAL: No distention noted. Abdomen soft and round. Normal active bowel sounds auscultated x 4 quadrants. No pain or tenderness noted upon palpation. INTEGUMENTARY: No cyanosis. No jaundice. No rashes noted. No cellulitis noted. EXTREMITIES: Left BKA, dressing clean dry and intact NEUROLOGIC: Cranial nerves II-XII intact. PSYCHIATRIC: Awake, alert, and oriented X 3. Appropriate affect. Intact judgement and insight. Microbiology 08/13/19 12:00 Blood Blood Culture - Preliminary No Growth after 24 hours 08/04/19 16:48 Blood Blood Culture - Final No Growth after 144 hours 07/31/19 16:15 Toe - Left First Gram Stain - Final 07/31/19 16:15 Toe - Left First Wound Culture - Final Pseudomonas aeruginosa Methicillin resist S. aureus Citrobacter amalonaticus 07/31/19 16:15 Toe - Left First Anaerobic Culture - Final Anaerobic Gm Negative Bacilli - Labs CBC & Chem 7: 08/15/19 06:09 08/15/19 06:09 Labs: Abnormal Lab Results - Last 24 Hours (Table) 08/14/19 08/14/19 08/15/19 Range/Units 17:05 20:00 06:09 WBC (3.8-10.6) k/uL RBC (3.80-5.40) m/uL Hgb (11.4-16.0) gm/dL Hct (34.0-46.0) % RDW (11.5-15.5) % Neutrophils # (Manual) (1.3-7.7) k/uL Monocytes # (Manual) (0-1.0) k/uL Metamyelocytes # (Man) (0) k/uL Nucleated RBCs (0-0) /100 WBC BUN 54 H (7-17) mg/dL Creatinine 4.70 H (0.52-1.04) mg/dL Glucose 73 L (74-99) mg/dL POC Glucose (mg/dL) 148 H 173 H (75-99) mg/dL Magnesium (1.6-2.3) mg/dL Albumin 2.4 L (3.5-5.0) g/dL 08/15/19 08/15/19 Range/Units 06:09 06:09 WBC 21.4 H (3.8-10.6) k/uL RBC 2.35 L (3.80-5.40) m/uL Hgb 7.2 L (11.4-16.0) gm/dL Hct 22.5 L (34.0-46.0) % RDW 22.6 H (11.5-15.5) % Neutrophils # (Manual) 17.30 H (1.3-7.7) k/uL Monocytes # (Manual) 1.50 H (0-1.0) k/uL Metamyelocytes # (Man) 0.21 H (0) k/uL Nucleated RBCs 1 H (0-0) /100 WBC BUN (7-17) mg/dL Creatinine (0.52-1.04) mg/dL Glucose (74-99) mg/dL POC Glucose (mg/dL) (75-99) mg/dL Magnesium 3.3 H (1.6-2.3) mg/dL Albumin (3.5-5.0) g/dL Microbiology - Last 24 Hours (Table) 08/13/19 12:00 Blood Culture - Preliminary Blood No Growth after 24 hours Assessment and Plan Assessment: (1) Acute osteomyelitis left foot with Gangrene of left lower extremity concurrent with atherosclerosis of bypass graft, status post amputation left first and second toes. MRSA, Pseudomonas, Citrobacter Amalonaticusand anaerobic gram-negative bacilli. 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 OF INSULIN SNOMED Code(s): 395668753 (3) Hyperglycemic crisis in diabetes mellitus Current Visit: Yes Status: Acute Code(s): E11.65 - TYPE 2 DIABETES MELLITUS WITH HYPERGLYCEMIA SNOMED Code(s): 098094312 (4) Acute on chronic renal failure, end-stage renal disease, on hemodialysis Current Visit: No Status: Acute Code(s): N17.9 - ACUTE KIDNEY FAILURE, UNSPECIFIED; N18.9 - CHRONIC KIDNEY DISEASE, UNSPECIFIED SNOMED Code(s): 732596846 (5) Anemia of chronic disease Current Visit: No Status: Acute Code(s): D63.8 - ANEMIA IN OTHER CHRONIC DISEASES CLASSIFIED ELSEWHERE SNOMED Code(s): 245528114 (6) Atherosclerosis of [place] arteries of left leg with ulceration of other part of foot Current Visit: No Status: Acute Code(s): I70.245 - ATHSCL [place] ARTERIES OF LEFT LEG W ULCERATION OTH PRT FOOT SNOMED Code(s): 154922039903760 (7) Chronic kidney disease with end stage renal disease on dialysis due to type 2 diabetes mellitus Current Visit: Yes Status: Acute Code(s): E11.22 - TYPE 2 DIABETES MELLITUS W DIABETIC CHRONIC KIDNEY DISEASE; N18.6 - END STAGE RENAL DISEASE; Z99.2 - DEPENDENCE ON RENAL DIALYSIS SNOMED Code(s): 558504178621 (8) hyponatremia secondary to chronic kidney disease (9) hypertension (10) nonsustained asymptomatic run of [place] Plan: Continue on current medication regime , Zofran, monitoring and symptomatic treatment.labs pending. Hold discharge for today, Worsening WBC, antibiotics as per ID -follow closely with infectious disease .cardiology consulted, NSVT, magnesium level pending, EKG pending. Hemodialysis today as per nephrology. Continue with aggressive pulmonary toileting with incentive spirometer ivan nforced. Close monitoring of CBC with repeat labs ordered for a.m. Prognosis guarded given Multiple complex medical issues. The impression and plan of care has been dictated as directed. : I performed a history and examination of this patient, discussed the same with the dictator. I agree with the dictator's note ,documented as a scribe. Any additional findings or plans will be noted.
[2019-08-15] MEDS: PANTOPRAZOLE 40 MG/10 ML VIAL IVP SCH ×2 (16:12→23:06)
[2019-08-15 16:57] LABS: Glucose,Whole Blood 176 mg/dL (75-99)
[2019-08-15 20:13] LABS: Glucose,Whole Blood 155 mg/dL (75-99)
--- NOTE | 2019-08-15 20:42 | PN ---
PROGRESS NOTE Patient is seen for followup for end-stage renal disease. She is seen on hemodialysis this morning. Patient is tolerating her treatment well. Blood pressure is slightly on the lower side. On examination today, blood pressure 95/50, heart rate 64 per minute. Patient is afebrile. There is no evidence of edema noted in her right lower extremity. Patient has left BKA. Abdomen is soft, nontender. Labs show hemoglobin 7.2, sodium of 137, potassium 4.7, albumin 2.4. ASSESSMENT: 1. End-stage renal disease, on hemodialysis on Monday, , Monday schedule. 2. Anemia, status post packed RBCs transfusion, maintained on Aranesp. It looks like the stool for occult blood was positive. This will need to be further worked up, likely as outpatient. 3. Chronic kidney disease mineral bone disorder. 4. Status post left below-knee amputation. PLAN: Maintain patient on Aranesp. UF only about half to one liter as tolerated. Encourage increased oral intake, particularly protein. MMODL / IJN: [id number] /
[2019-08-15] MEDS: ATORVASTATIN 80 MG TAB PO SCH (23:08)
[2019-08-15] MEDS: LISINOPRIL 10 MG TAB PO SCH (23:08)
[2019-08-16] MEDS: NYSTATIN 100,000 UNIT/ML SUSP 500,000 UNIT/5 ML CUP PO SCH ×3 (00:18→12:05)
[2019-08-16 03:14] LABS: Glucose,Whole Blood 226 mg/dL (75-99)
[2019-08-16 05:51] LABS: Glucose,Whole Blood 200 mg/dL (75-99)
[2019-08-16] MEDS: LACTATED RINGERS 1,000 ML IV SCH (06:32)
[2019-08-16] MEDS: INSULIN ASPART (NovoLOG) 100 UNIT/ML VIAL SQ SCH ×2 (06:33→12:06)
[2019-08-16] MEDS: CALCIUM ACETATE 667 MG CAP PO SCH (06:37)
[2019-08-16] MEDS: CALCIUM CARB-MAG CARB-FOLIC 1 EACH TAB PO SCH ×2 (06:37→12:06)
[2019-08-16 07:16] LABS: Anisocytosis Moderate; HCT 23.3 % (34.0-46.0); HGB 7.3 gm/dL (11.4-16.0); Hypochromasia Marked; MCH 30.1 pg (25.0-35.0); MCHC 31.1 g/dL (31.0-37.0); MCV 96.7 fL (80.0-100.0); Macrocytosis Moderate; Mean Platelet Volume 8.4; Platelet Count 215 k/uL (150-450); RBC 2.41 m/uL (3.80-5.40); RDW 23.5 % (11.5-15.5)
[2019-08-16 07:20] LABS: Glucose,Whole Blood 226 mg/dL (75-99)
[2019-08-16 07:26] LABS: Albumin 2.4 g/dL (3.5-5.0); Calcium 8.9 mg/dL (8.4-10.2); Total Bilirubin 0.5 mg/dL (0.2-1.3); Total Protein 4.8 g/dL (6.3-8.2)
[2019-08-16 07:32] LABS: Vancomycin,Random 35.1 ug/mL
[2019-08-16] MEDS: INSULIN DETEMIR (LEVEMIR) 100 UNIT/ML SYR SQ SCH (08:17)
[2019-08-16] MEDS: PANTOPRAZOLE 40 MG/10 ML VIAL IVP SCH (08:17)
[2019-08-16] MEDS: CYANOCOBALAMIN 500 MCG TAB PO SCH (08:18)
[2019-08-16] MEDS: FOLIC ACID-VIT B COMPLEX-VIT C 1 CAP PO SCH (08:18)
[2019-08-16] MEDS: CLOPIDOGREL 75 MG TAB PO SCH (08:18)
[2019-08-16] MEDS: CHOLECALCIFEROL 1,000 UNIT TAB PO SCH (08:18)
[2019-08-16] MEDS: ASPIRIN 81 MG PO SCH (08:18)
[2019-08-16 08:37] LABS: Metamyelocytes % 1 %; Neutrophils % (M) 83 %; Nucleated Red Blood Cells 5 /100 WBC (0-0); Total Cells Counted 200
[2019-08-16 08:40] LABS: Lymphocytes # (M) 1.52 k/uL (1.0-4.8); Metamyelocytes # (M) 0.17 k/uL (0); Monocytes # (M) 1.35 k/uL (0-1.0); WBC 16.9 k/uL (3.8-10.6)
[2019-08-16 08:42] LABS: Polychromasia Present
--- NOTE | 2019-08-16 08:46 | PN ---
PROGRESS NOTE Patient is seen for followup for end-stage renal disease. She was dialyzed yesterday. Patient is feeling slightly better. Her stool for occult blood came back positive, which will be worked up during this admission. Patient has no active GI bleed. She denies any previous history of peptic ulcers. PHYSICAL EXAMINATION: On examination today, blood pressure is 110/55, heart rate 69 per minute. She is afebrile. EXAMINATION OF THE HEART: S1, S2. EXAMINATION OF THE LUNGS: Bilateral breath sounds are heard. Abdomen is soft, nontender. Examination of the lower extremities shows no significant edema. DOOR TECHNICIAN EXAM: Grossly intact. Patient has a BKA, site is currently dressed. LABS: Labs show sodium of 136, potassium 5.0, serum creatinine 3.8, and hemoglobin 7.3 g/dL. ASSESSMENT: 1. End-stage renal disease on hemodialysis on a Monday, , Monday schedule. 2. Anemia with positive stool for occult blood. GI has been consulted. 3. Status post left below knee amputation. 4. Hypertension, currently controlled. 5. Chronic kidney disease mineral bone disorder. PLAN: Hemodialysis in a.m. UF of about 1 to 1.5 L. MMODL / IJN: [id number] /
[2019-08-16 08:47] LABS: Poikilocytosis (M) Present
[2019-08-16 09:02] VITALS: RESP 16; TEMP 97.6
--- NOTE | 2019-08-16 09:20 | P.PN ---
Subjective Progress Note Date: 08/16/19 Patient seen and examined. Did have a run of V. tach yesterday, also leukocytosis No acute distress. Resting comfortably No respiratory distress heart regular Left lower extremity dressing intact, rigid dressing in place. Unable to remove at this time, will have rep come and remove, will remove elvia and replace rigid dressing. postop left below knee amputation Severe peripheral arterial disease Patient doing okay overall. Activity as tolerated, up to chair today. leukocytosis workup negative, no bacteremia at this point. Await ID recommendations Objective - Vital Signs Vital signs: Vital Signs Temp 97.6 F 08/16/19 08:00 Pulse 69 08/16/19 08:00 Resp 16 08/16/19 08:00 BP 128/58 08/16/19 08:00 Pulse Ox 97 08/16/19 08:00 Intake & Output 08/15/19 08/16/19 08/16/19 18:59 06:59 18:59 Intake Total 930 222 Balance 930 222 Weight 84.4 kg 85.6 kg Intake: Intake, IV Titration 510 Amount Fluconazole in NaCl,Iso- 100 Osm 200 mg In Saline 1 100ml.bag @ 50 mls/hr IVPB ONCE STA Rx#: [id number] Lactated Ringers 1,000 ml 160 @ 20 mls/hr IV .Q24H [facility] Rx#:[id number] Vancomycin 1,250 mg In 250 Sodium Chloride 0.9% 250 ml @ 125 mls/hr IVPB ONCE ONE Rx#:[id number] Oral 420 222 Other: Voiding Method Bedside Commode # Voids 1 # Bowel Movements 1 1 - Labs CBC & Chem 7: 08/16/19 06:39 08/16/19 06:39 Labs: Abnormal Lab Results - Last 24 Hours (Table) 08/15/19 08/15/19 08/15/19 Range/Units 06:09 14:50 16:55 WBC (3.8-10.6) k/uL RBC (3.80-5.40) m/uL Hgb (11.4-16.0) gm/dL Hct (34.0-46.0) % RDW (11.5-15.5) % Sodium (137-145) mmol/L BUN (7-17) mg/dL Creatinine (0.52-1.04) mg/dL Glucose (74-99) mg/dL POC Glucose (mg/dL) 176 H (75-99) mg/dL Magnesium 3.3 H (1.6-2.3) mg/dL AST (14-36) U/L Total Protein (6.3-8.2) g/dL Albumin (3.5-5.0) g/dL Stool Occult Blood Positive H (Negative) 08/15/19 08/16/19 08/16/19 Range/Units 20:11 03:01 05:49 WBC (3.8-10.6) k/uL RBC (3.80-5.40) m/uL Hgb (11.4-16.0) gm/dL Hct (34.0-46.0) % RDW (11.5-15.5) % Sodium (137-145) mmol/L BUN (7-17) mg/dL Creatinine (0.52-1.04) mg/dL Glucose (74-99) mg/dL POC Glucose (mg/dL) 155 H 226 H 200 H (75-99) mg/dL Magnesium (1.6-2.3) mg/dL AST (14-36) U/L Total Protein (6.3-8.2) g/dL Albumin (3.5-5.0) g/dL Stool Occult Blood (Negative) 08/16/19 08/16/19 08/16/19 Range/Units 06:39 06:39 07:19 WBC 17.7 H (3.8-10.6) k/uL RBC 2.41 L (3.80-5.40) m/uL Hgb 7.3 L (11.4-16.0) gm/dL Hct 23.3 L (34.0-46.0) % RDW 23.5 H (11.5-15.5) % Sodium 136 L (137-145) mmol/L BUN 35 H (7-17) mg/dL Creatinine 3.80 H (0.52-1.04) mg/dL Glucose 215 H (74-99) mg/dL POC Glucose (mg/dL) 226 H (75-99) mg/dL Magnesium (1.6-2.3) mg/dL AST 58 H (14-36) U/L Total Protein 4.8 L (6.3-8.2) g/dL Albumin 2.4 L (3.5-5.0) g/dL Stool Occult Blood (Negative) Microbiology - Last 24 Hours (Table) 08/13/19 12:00 Blood Culture - Preliminary Blood No Growth after 48 hours
--- NOTE | 2019-08-16 10:59 | P.CONS ---
History of Present Illness - Reason for Consult Consult date: 08/16/19 GI bleed positive occult blood Requesting physician: Jasbir Malone - Chief Complaint Osteomyelitis of the left great toe and second toe with gangrene - History of Present Illness 74-year-old female past medical history of diabetes end-stage renal disease hemodialysis T, , dependent direct admission from the OR secondary to gangrene osteoarthritis 07/31/2019 status post left below the knee amputation. Hypoglycemic and middle for further care. Discharged held secondary to upward trending leukocytosis 21.4 presently 16.9. Patient has been maintained on aspirin and Plavix. Stool guaiac positive. Consult requested for possible GI bleed. Preoperative hemoglobin 14.9 however when reviewing prior medical records patient's hemoglobin over the past few years fluctuates between 7-12. Postop hemoglobin 9.6 as low as 6.43 days ago. Last 48 hours hemoglobin and has been trending between 7.2-7.3. MCV 96. Platelet 2:15. BUN 35. Creatinine 3.8. Creatinine 3.8 improved from 4.7. Colonoscpoy at least 10 years ago unsure of findings. No hx of EGD. Per nursing and patient no overt s/s of GI bleeding. Dialysis tomorrow. Review of Systems Constitutional: Denies fever, chills, sweats, weight gain, or loss. HEENT: Negative for migraines, blurred vision or loss, earaches, drainage, tinnitus, oral mucosal lesions, dysphagia, or odynophagia. CARDIAC: Negative for chest pain, arrhythmias, or palpitation. RESPIRATORY: Negative for shortness of breath, hemoptysis, cough, or sputum production. GI: See HPI for pertinent findings. : Negative for hematuria, urgency, frequency, polyuria, or dysuria. GYNc: Denies possibility of . Negative vaginal discharge. MUSCULOSKELETAL: Negative for muscle aches, swelling, arthritis, and arthralgias. NEUROLOGIC: Negative for stroke or TIA. ENDOCRINE: Negative for thyroid problems. SKIN: Negative for rash or itching. PSYCHIATRIC: Negative history for depression and anxiety Past Medical History Past Medical History: Coronary Artery Disease (CAD), Chest Pain / Angina, Diabetes Mellitus, Dialysis, Hyperlipidemia, Hypertension, Myocardial Infarction (UT), Renal Disease Additional Past Medical History / Comment(s): End-stage renal disease with hemodialysis 3 times a week usually has on . , sat.-left arm AV fistula, Non-STEMI 03/14/16, peripheral neuropathy bilateral feet cataracts bilaterally, frequent UTI'S, stress incontinence.lt. finger wound Last Myocardial Infarction Date:: 07/15/2017 History of Any Multi-Drug Resistant Organisms: MRSA Year Discovered:: 07/31/19 MDRO Source:: Toe- Left First Past Surgical History: Appendectomy, Cholecystectomy, Heart Catheterization, Heart Catheterization With Stent, Tonsillectomy Additional Past Surgical History / Comment(s): 03/15/16 PTCA with stent to mid LAD,06-07-16 HEART CATH STENT TO PROX RCA. Restented mid LAD 11/20/16 A/V fistula with revision L upper arm, history of Lasix eye surgery and cataract removal. Past Anesthesia/Blood Transfusion Reactions: No Reported Reaction Date of Last Stent Placement:: 11/21/2016 Past Psychological History: Depression Additional Psychological History / Comment(s): . Smoking Status: Never smoker Past Alcohol Use History: None Reported Additional Past Alcohol Use History / Comment(s): Pt states she started smoking at age 21 (1965) and was a 5 cigarette a day smoker- she only smoked for about 6 months. Past Drug Use History: None Reported - Past Family History Father Family Medical History: Diabetes Mellitus Additional Family Medical History / Comment(s): Father of diabetic complications in his 40's Mother Family Medical History: Cancer, Myocardial Infarction ([place]) Additional Family Medical History / Comment(s): Cancer unknown type. Mother of a UT in her early 50's Brother(s) Family Medical History: Cancer Additional Family Medical History / Comment(s): Her brother from lung cancer and cirrhosis of the liver. Medications and Allergies Home Medications Medication Instructions Recorded Confirmed Type Folic Acid-Vit B Complex-Vit C 1 cap PO DAILY 06/06/16 07/29/19 History [Nephrocaps] Clopidogrel [Plavix] 75 mg PO DAILY #30 tab 11/22/16 07/29/19 Rx Cholecalciferol [Vitamin D3 (25 1,000 unit PO DAILY tab 07/18/17 07/29/19 Rx Mcg = 1000 Iu)] Cyanocobalamin [Vitamin B-12] 1,000 mcg PO DAILY tab 07/18/17 07/29/19 Rx Aspirin EC [Ecotrin Low Dose] 81 mg PO DAILY 02/15/18 07/29/19 History Atorvastatin [Lipitor] 80 mg PO HS 02/15/18 07/29/19 History Calcium Acetate [PhosLo] 1,334 mg PO AC-BID 02/15/18 07/29/19 History Calcium Carb-Mag Carb-Folic 1 tab PO AC-TID 02/15/18 07/29/19 History [Magnebind 400] Furosemide [Lasix] 40 mg PO DAILY 02/15/18 07/29/19 History Lisinopril [Zestril] 10 mg PO HS 02/15/18 07/29/19 History Citalopram Hydrobromide [CeleXA] 20 mg PO DAILY 05/04/19 07/29/19 History Acetaminophen Tab [Tylenol] 650 mg PO Q6HR PRN tab 08/12/19 Rx INSULIN LISPRO (HumaLOG) [humaLOG] 0 unit SQ ACHS #1 vial 08/12/19 Rx Insulin Detemir (Levemir) [Levemir] 10 unit SQ QAM@0700 syr 08/15/19 Rx Allergies Allergy/AdvReac Type Severity Reaction Status Date / Time glyburide [From Diabeta] Allergy Rash/Hives Verified 07/29/19 11:00 Physical Exam Vitals: Vital Signs Temp Pulse Resp BP Pulse Ox 08/16/19 08:00 97.6 F 69 16 128/58 97 08/16/19 04:26 97.8 F 69 18 110/55 99 08/16/19 00:30 98.1 F 65 20 103/61 98 08/15/19 20:00 98.1 F 70 18 114/56 99 08/15/19 15:12 97.7 F 68 16 114/54 98 08/15/19 13:41 97.6 F 72 20 126/76 08/15/19 11:26 74 16 126/62 98 Intake and Output 08/15/19 08/16/19 08/16/19 22:59 06:59 14:59 Intake Total 690 222 Balance 690 222 Intake: Intake, IV Titration 450 Amount Fluconazole in NaCl,Iso- 100 Osm 200 mg In Saline 1 100ml.bag @ 50 mls/hr IVPB ONCE STA Rx#: [id number] Lactated Ringers 1,000 ml 100 @ 20 mls/hr IV .Q24H [facility] Rx#:[id number] Vancomycin 1,250 mg In 250 Sodium Chloride 0.9% 250 ml @ 125 mls/hr IVPB ONCE ONE Rx#:[id number] Oral 240 222 Other: Voiding Method Bedside Commode Bedside Commode # Voids 1 # Bowel Movements 1 1 Weight 85.6 kg General appearance: The patient is alert, oriented, in no acute distress. HET: Head is normocephalic and atraumatic. Pupils are equal and reactive. Oropharynx is clear without lesions. Neck: Supple without lymphadenopathy. Trachea midline. Heart: S1 S2. Regular rate and rhythm. Lungs: No crackles or wheezes are heard. Abdomen: Soft, nontender, nondistended with bowel sounds. No peritoneal signs. No palpable organomegaly or masses. Extremities: Normal skin color and turgor. No cyanosis, rash, ulceration, clubbing, or edema. Radial and pedal pulses are 2/4 bilaterally. Neurological: No focal deficits. Strength and sensation are grossly intact. Results CBC & Chem 7: 08/16/19 06:39 08/16/19 06:39 Labs: Abnormal Lab Results - Last 24 Hours (Table) 08/15/19 08/15/19 08/15/19 Range/Units 06:09 14:50 16:55 WBC (3.8-10.6) k/uL RBC (3.80-5.40) m/uL Hgb (11.4-16.0) gm/dL Hct (34.0-46.0) % RDW (11.5-15.5) % Neutrophils # (Manual) (1.3-7.7) k/uL Monocytes # (Manual) (0-1.0) k/uL Metamyelocytes # (Man) (0) k/uL Nucleated RBCs (0-0) /100 WBC Sodium (137-145) mmol/L BUN (7-17) mg/dL Creatinine (0.52-1.04) mg/dL Glucose (74-99) mg/dL POC Glucose (mg/dL) 176 H (75-99) mg/dL Magnesium 3.3 H (1.6-2.3) mg/dL AST (14-36) U/L Total Protein (6.3-8.2) g/dL Albumin (3.5-5.0) g/dL Stool Occult Blood Positive H (Negative) 08/15/19 08/16/19 08/16/19 Range/Units 20:11 03:01 05:49 WBC (3.8-10.6) k/uL RBC (3.80-5.40) m/uL Hgb (11.4-16.0) gm/dL Hct (34.0-46.0) % RDW (11.5-15.5) % Neutrophils # (Manual) (1.3-7.7) k/uL Monocytes # (Manual) (0-1.0) k/uL Metamyelocytes # (Man) (0) k/uL Nucleated RBCs (0-0) /100 WBC Sodium (137-145) mmol/L BUN (7-17) mg/dL Creatinine (0.52-1.04) mg/dL Glucose (74-99) mg/dL POC Glucose (mg/dL) 155 H 226 H 200 H (75-99) mg/dL Magnesium (1.6-2.3) mg/dL AST (14-36) U/L Total Protein (6.3-8.2) g/dL Albumin (3.5-5.0) g/dL Stool Occult Blood (Negative) 08/16/19 08/16/19 08/16/19 Range/Units 06:39 06:39 07:19 WBC 16.9 H (3.8-10.6) k/uL RBC 2.41 L (3.80-5.40) m/uL Hgb 7.3 L (11.4-16.0) gm/dL Hct 23.3 L (34.0-46.0) % RDW 23.5 H (11.5-15.5) % Neutrophils # (Manual) 14.03 H (1.3-7.7) k/uL Monocytes # (Manual) 1.35 H (0-1.0) k/uL Metamyelocytes # (Man) 0.17 H (0) k/uL Nucleated RBCs 5 H (0-0) /100 WBC Sodium 136 L (137-145) mmol/L BUN 35 H (7-17) mg/dL Creatinine 3.80 H (0.52-1.04) mg/dL Glucose 215 H (74-99) mg/dL POC Glucose (mg/dL) 226 H (75-99) mg/dL Magnesium (1.6-2.3) mg/dL AST 58 H (14-36) U/L Total Protein 4.8 L (6.3-8.2) g/dL Albumin 2.4 L (3.5-5.0) g/dL Stool Occult Blood (Negative) Microbiology - Last 24 Hours (Table) 08/13/19 12:00 Blood Culture - Preliminary Blood No Growth after 48 hours Assessment and Plan (1) Stool guaiac positive Narrative/Plan: 74-year-old female with a history of acute on chronic normocytic anemia und erlying end-stage renal disease hemodialysis dependent status post left below the knee amputation with positive guaiac without overt bleeding such as hematemesis hematochezia melena. Hemoglobin stable in the 7 range for more than 48 hours without abdominal complaints. Colonoscopy more than 10 years ago no history of EGD. Current Visit: Yes Status: Acute Code(s): R19.5 - OTHER FECAL ABNORMALITIES SNOMED Code(s): 15559871 (2) Severe peripheral arterial disease Current Visit: Yes Status: Acute Code(s): I73.9 - PERIPHERAL VASCULAR DISEASE, UNSPECIFIED SNOMED Code(s): 224096901 (3) Amputation of left lower extremity below knee Current Visit: Yes Status: Acute Code(s): Z89.512 - ACQUIRED ABSENCE OF LEFT LEG BELOW KNEE SNOMED Code(s): 437973878378513 (4) Chronic anemia Current Visit: Yes Status: Acute Code(s): D64.9 - ANEMIA, UNSPECIFIED SNOMED Code(s): 318101995 (5) End stage renal disease on dialysis Current Visit: Yes Status: Acute Code(s): N18.6 - END STAGE RENAL DISEASE; Z99.2 - DEPENDENCE ON RENAL DIALYSIS SNOMED Code(s): 067065452 Plan: 1. Endoscopic evaluation is not advised at this time. This can be pursued as an outpatient. Patient is recovering from vascular surgery with leukocytosis trending upward ID following presently down today at 16.9. Presently no active GI bleeding. Continue monitor CBC closely has been stable for more than 48 hours. Continue GI prophylaxis. Dialysis as indicated. Follow up in GI office after discharge. Thank you for this kind referral and the opportunity to participate in the care of your patient. This consultation was discussed with Dr. Gross. The impression and plan of care have been directed as dictated.
[2019-08-16 11:29] LABS: Glucose,Whole Blood 287 mg/dL (75-99)
--- NOTE | 2019-08-16 11:44 | ECHOF ---
Referral Reason:Chest pain and cardiomyopathy MEASUREMENTS -------- HEIGHT: 158.8 cm WEIGHT: 84.4 kg BP: 110/55 RVIDd: 5.4 cm (< 3.3) IVSd: 1.6 cm (0.6 - 1.1) LVIDd: 4.5 cm (3.9 - 5.3) LVPWd: 1.7 cm (0.6 - 1.1) IVSs: 2.0 cm LVIDs: 2.9 cm LVPWs: 2.4 cm LAESV Index (A-L): 52.73 ml/m Ao Diam: 2.5 cm (2.0 - 3.7) AV Cusp: 0.8 cm (1.5 - 2.6) LA Diam: 4.1 cm (2.7 - 3.8) EPSS: 1.3 cm MV E Harsha: 1.36 m/s MV DecT: 311 ms MV A Harsha: 0.78 m/s MV E/A Ratio: 1.73 AV maxP.05 mmHg AV meanP.92 mmHg RAP: 5.00 mmHg RVSP: 39.00 mmHg MV EF SLOPE: 53.65 mm/s (70 - 150) MV EXCURSION: 1.18 cm (> 18.000) FINDINGS -------- Sinus rhythm. This was a technically adequate study. The left ventricular size is normal. There is moderate concentric left ventricular hypertrophy. O verall left ventricular systolic function is mild-moderately impaired with, an EF between 40 - 45 %. The right ventricle is severely enlarged. Left atrium is severely dilated by volume. The right atrium is mildly enlarged. Interatrial and interventricular septum intact. There is mild to moderate aortic valve sclerosis. Trace to mild aortic regurgitation. There is mo derate aortic stenosis present. Peak/mean gradient across the valve is 36.05mmHg / 20.92mmHg. Moderate mitral annular calcification present. Severe mitral regurgitation is present. Mild prasad l stenosis. Severe tricuspid regurgitation present. There is mild to moderate pulmonary hypertension. The rig ht ventricular systolic pressure, as measured by Doppler, is 39.00mmHg. Trace/mild (physiologic) pulmonic regurgitation. The aortic root size is normal. IVC not well visualized There is no pericardial effusion. CONCLUSIONS -------- 1. Sinus rhythm. 2. The left ventricular size is normal. 3. There is moderate concentric left ventricular hypertrophy. 4. Overall left ventricular systolic function is mild-moderately impaired with, an EF between 40 - 45 %. 5. The right ventricle is severely enlarged. 6. Left atrium is severely dilated by volume. 7. The right atrium is mildly enlarged. 8. There is mild to moderate aortic valve sclerosis. 9. Trace to mild aortic regurgitation. 10. There is moderate aortic stenosis present. 11. Peak/mean gradient across the valve is 36.05mmHg / 20.92mmHg. 12. Moderate mitral annular calcification present. 13. Severe mitral regurgitation is present. 14. Mild mitral stenosis. 15. Severe tricuspid regurgitation present. 16. There is mild to moderate pulmonary hypertension. 17. Trace/mild (physiologic) pulmonic regurgitation. 18. The aortic root size is normal. 19. IVC not well visualized 20. There is no pericardial effusion. SHAKE FEEDER: Kerry Rosenberg RDCS
[2019-08-16 12:05] VITALS: BP 112/56; PULSE 68
[2019-08-16] MEDS: CITALOPRAM HYDROBROMIDE 20 MG TAB PO SCH (12:05)
[2019-08-16] MEDS: FUROSEMIDE 40 MG TAB PO SCH (12:05)
--- NOTE | 2019-08-16 14:06 | PN ---
PROGRESS NOTE DATE OF SERVICE: 08/16/2019 REASON FOR FOLLOWUP: Leukocytosis. INTERVAL HISTORY: The patient is currently afebrile. The patient has been feeling weak and lethargic with no energy. No chest pain, shortness of breath or cough. No abdominal pain. Pain to the left BKA stump. PHYSICAL EXAMINATION: On examination, her blood pressure is 112/56 with a pulse of 68, temperature 97.6. She is 95% on room air. General description is an elderly female, lying in bed in no distress. RESPIRATORY SYSTEM: Unlabored breathing, clear to auscultation anteriorly. HEART: S1, S2. Regular rate and rhythm. ABDOMEN: Soft, no tenderness. LABS: Hemoglobin 7.3, white count 16.9, BUN of 35, creatinine 3.80. DIAGNOSTIC IMPRESSION AND PLAN: Patient with leukocytosis in this patient who did have left first and second toe gangrene, status post amputation. Subsequently did have a left BKA and the patient's white count started to jump up once antibiotic was discontinued and seemed to have shown a downward trend with the vancomycin as of yesterday and recommend to keep the patient on vancomycin pharmacy to dose through dialysis for another 2 weeks and a close outpatient followup. MMODL / IJN: [id number] /
--- NOTE | 2019-08-16 17:20 | P.CRDCN ---
History of Present Illness Consult date: 08/15/19 History of present illness: This is a 74-year-old female with history of end-stage renal disease on hemodialysis who was admitted to the hospital for amputation of the first and second toe of the left foot. She has severe peripheral vascular disease. She is status post balloon angioplasty of the SFA and also popliteal artery. Previously. Patient also has a history of ischemic heart disease with stenting of the right coronary artery in April 2017. Patient also has hypertension, hypercholesterolemia and also stent placement of the LAD in the past. Patient had a prolonged course in the hospital. We're asked to see the patient because of an episode of tachycardia which is wide complex. It appeared to be irregular but accelerated in rate before termination. It appeared to be ventricular tachycardia consisting of 30 beat. The strips were reviewed with elec trophysiologist who felt that this could be ventricular tachycardia. Advised to put her on beta tone. She may be a candidate for either amiodarone therapy and also possible EP evaluation. Patient may be also a candidate for prophylactic vest placement. Elective physiology consult is requested. Patient complains of becoming weak and tired. The patient is chronically anemic. Denied any chest pains Review of Systems As per the chart Past Medical History Past Medical History: Coronary Artery Disease (CAD), Chest Pain / Angina, Diabetes Mellitus, Dialysis, Hyperlipidemia, Hypertension, Myocardial Infarction (NM), Renal Disease Additional Past Medical History / Comment(s): End-stage renal disease with hemodialysis 3 times a week usually has on . , sat.-left arm AV fistula, Non-STEMI 03/14/16, peripheral neuropathy bilateral feet cataracts bilaterally, frequent UTI'S, stress incontinence.lt. finger wound Last Myocardial Infarction Date:: 07/15/2017 History of Any Multi-Drug Resistant Organisms: MRSA Date of last positivie culture/infection: 07/31/19 MDRO Source:: Toe- Left First Past Surgical History: Appendectomy, Cholecystectomy, Heart Catheterization, Heart Catheterization With Stent, Tonsillectomy Additional Past Surgical History / Comment(s): 03/15/16 PTCA with stent to mid LAD,06-07-16 HEART CATH STENT TO PROX RCA. Restented mid LAD 11/20/16 A/V fistula with revision L upper arm, history of Lasix eye surgery and cataract removal. Past Anesthesia/Blood Transfusion Reactions: No Reported Reaction Date of Last Stent Placement:: 11/21/2016 Past Psychological History: Depression Additional Psychological History / Comment(s): . Smoking Status: Never smoker Past Alcohol Use History: None Reported Additional Past Alcohol Use History / Comment(s): Pt states she started smoking at age 21 (1965) and was a 5 cigarette a day smoker- she only smoked for about 6 months. Past Drug Use History: None Reported - Past Family History Father Family Medical History: Diabetes Mellitus Additional Family Medical History / Comment(s): Father of diabetic complications in his 40's Mother Family Medical History: Cancer, Myocardial Infarction (NM) Additional Family Medical History / Comment(s): Cancer unknown type. Mother of a NM in her early 50's Brother(s) Family Medical History: Cancer Additional Family Medical History / Comment(s): Her brother from lung cancer and cirrhosis of the liver. Medications and Allergies Home Medications Medication Instructions Recorded Confirmed Type Folic Acid-Vit B Complex-Vit C 1 cap PO DAILY 06/06/16 07/29/19 History [Nephrocaps] Clopidogrel [Plavix] 75 mg PO DAILY #30 tab 11/22/16 07/29/19 Rx Cholecalciferol [Vitamin D3 (25 1,000 unit PO DAILY tab 07/18/17 07/29/19 Rx Mcg = 1000 Iu)] Cyanocobalamin [Vitamin B-12] 1,000 mcg PO DAILY tab 07/18/17 07/29/19 Rx Aspirin EC [Ecotrin Low Dose] 81 mg PO DAILY 02/15/18 07/29/19 History Atorvastatin [Lipitor] 80 mg PO HS 02/15/18 07/29/19 History Calcium Acetate [PhosLo] 1,334 mg PO AC-BID 02/15/18 07/29/19 History Calcium Carb-Mag Carb-Folic 1 tab PO AC-TID 02/15/18 07/29/19 History [Magnebind 400] Furosemide [Lasix] 40 mg PO DAILY 02/15/18 07/29/19 History Lisinopril [Zestril] 10 mg PO HS 02/15/18 07/29/19 History Citalopram Hydrobromide [CeleXA] 20 mg PO DAILY 05/04/19 07/29/19 History Acetaminophen Tab [Tylenol] 650 mg PO Q6HR PRN tab 08/12/19 Rx INSULIN LISPRO (HumaLOG) [humaLOG] 0 unit SQ ACHS #1 vial 08/12/19 Rx Insulin Detemir (Levemir) [Levemir] 10 unit SQ QAM@0700 syr 08/15/19 Rx Vancomycin HCl in 5 % Dextrose 1 gm IV DIRECTED #6 plast..bag 08/16/19 Rx [Vancomycin 1 Gram/250 ml-D5w] Allergies Allergy/AdvReac Type Severity Reaction Status Date / Time glyburide [From Diabeta] Allergy Rash/Hives Verified 07/29/19 11:00 Physical Exam Vitals: Vital Signs Temp Pulse Resp BP Pulse Ox 08/16/19 12:00 68 16 112/56 95 08/16/19 08:00 97.6 F 69 16 128/58 97 08/16/19 04:26 97.8 F 69 18 110/55 99 08/16/19 00:30 98.1 F 65 20 103/61 98 08/15/19 20:00 98.1 F 70 18 114/56 99 Intake and Output 08/16/19 08/16/19 08/16/19 06:59 14:59 22:59 Intake Total 282 Balance 282 Intake: Intake, IV Titration 60 Amount Lactated Ringers 1,000 ml 60 @ 20 mls/hr IV .Q24H [facility] Rx#:[id number] Oral 222 Other: Voiding Method Bedside Commode # Voids 1 # Bowel Movements 1 Weight 85.6 kg GENERAL EXAM: Patient is alert and oriented and doesn't appear to be in any acute distress. Appears frail and weak HEENT: Normocephalic. Normal reaction of pupils, equal size, normal range of e xtraocular motion. No erythema or exudates in the throat. NECK: No masses, no nuchal rigidity. CHEST: No chest wall deformity. LUNGS: Decreased breath sounds HEART: S1 is normal ABDOMEN: No hepatosplenomegaly, normal bowel sounds, no guarding or rigidity. SKIN: No rashes CENTRAL NERVOUS SYSTEM: No focal deficits. EXTREMITIES: [Status post amputation Results 08/16/19 06:39 08/16/19 06:39 Cardiac Enzymes 08/16/19 Range/Units 06:39 AST 58 H (14-36) U/L CBC 08/16/19 Range/Units 06:39 WBC 16.9 H (3.8-10.6) k/uL RBC 2.41 L (3.80-5.40) m/uL Hgb 7.3 L (11.4-16.0) gm/dL Hct 23.3 L (34.0-46.0) % Plt Count 215 (150-450) k/uL Comprehensive Metabolic Panel 08/16/19 Range/Units 06:39 Sodium 136 L (137-145) mmol/L Potassium 5.0 (3.5-5.1) mmol/L Chloride 101 (98-107) mmol/L Carbon Dioxide 28 (22-30) mmol/L BUN 35 H (7-17) mg/dL Creatinine 3.80 H (0.52-1.04) mg/dL Glucose 215 H (74-99) mg/dL Calcium 8.9 (8.4-10.2) mg/dL AST 58 H (14-36) U/L ALT 45 (9-52) U/L Alkaline Phosphatase 92 (38-126) U/L Total Protein 4.8 L (6.3-8.2) g/dL Albumin 2.4 L (3.5-5.0) g/dL Intake and Output 08/16/19 08/16/19 08/16/19 06:59 14:59 22:59 Intake Total 282 Balance 282 Intake: Intake, IV Titration 60 Amount Lactated Ringers 1,000 ml 60 @ 20 mls/hr IV .Q24H [facility] Rx#:[id number] Oral 222 Other: Voiding Method Bedside Commode # Voids 1 # Bowel Movements 1 Weight 85.6 kg 08/16/19 06:39 08/16/19 06:39 EKG Interpretations (text) Monitor strips showed sinus rhythm with one episode of wide-complex tachycardia consisting of 30 beats Assessment and Plan (1) Ventricular tachycardia Status: Acute Code(s): I47.2 - VENTRICULAR TACHYCARDIA SNOMED Code(s): 81543500 (2) Acute on chronic renal failure Status: Acute Code(s): N17.9 - ACUTE KIDNEY FAILURE, UNSPECIFIED; N18.9 - CHRONIC KIDNEY DISEASE, UNSPECIFIED SNOMED Code(s): 460434441 (3) Amputation of left lower extremity below knee Status: Acute Code(s): Z89.512 - ACQUIRED ABSENCE OF LEFT LEG BELOW KNEE SNOMED Code(s): 540642910364444 (4) Anemia of chronic disease Status: Acute Code(s): D63.8 - ANEMIA IN OTHER CHRONIC DISEASES CLASSIFIED ELSEWHERE SNOMED Code(s): 459764498 (5) Atherosclerosis 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 Continue to monitor her. EP evaluation. May consider outpatient monitoring and possible LifeVest
--- NOTE | 2019-08-16 17:22 | P.PN ---
Subjective Progress Note Date: 08/16/19 This is 74-year-old female had a prolonged course in hospital. Has history of ischemic heart disease with previous stent placement. Had a bout of wide complex tachycardia suggestive of V. tach. Patient is being and she did on beta tone. He. Evaluation is requested. Patient remains frail and weak and fatigued. No complaints of chest pain Objective - Vital Signs Vital signs: Vital Signs Temp 97.6 F 08/16/19 08:00 Pulse 68 08/16/19 12:00 Resp 16 08/16/19 12:00 BP 112/56 08/16/19 12:00 Pulse Ox 95 08/16/19 12:00 Intake & Output 08/15/19 08/16/19 08/16/19 18:59 06:59 18:59 Intake Total 930 282 Balance 930 282 Weight 84.4 kg 85.6 kg Intake: Intake, IV Titration 510 60 Amount Fluconazole in NaCl,Iso- 100 Osm 200 mg In Saline 1 100ml.bag @ 50 mls/hr IVPB ONCE STA Rx#: [id number] Lactated Ringers 1,000 ml 60 @ 20 mls/hr IV .Q24H [facility] Rx#:[id number] Lactated Ringers 1,000 ml 160 @ 20 mls/hr IV .Q24H [facility] Rx#:[id number] Vancomycin 1,250 mg In 250 Sodium Chloride 0.9% 250 ml @ 125 mls/hr IVPB ONCE ONE Rx#:[id number] Oral 420 222 Other: Voiding Method Bedside Commode # Voids 1 # Bowel Movements 1 1 - Exam GENERAL EXAM: Patient is alert and oriented and appears frail and weak HEENT: Normocephalic. Normal reaction of pupils, equal size, normal range of extraocular motion. No erythema or exudates in throat. NECK: No masses, no nuchal rigidity. CHEST: No chest wall deformity. LUNGS: Diffuse breath sounds HEART: S1 and S2 normal with no audible mumurs or gallops. Regular rhythm, ABDOMEN: Soft SKIN: No rashes CENTRAL NERVOUS SYSTEM: No focal deficits. EXTREMITIES: There is post amputation - Labs CBC & Chem 7: 08/16/19 06:39 08/16/19 06:39 Labs: Abnormal Lab Results - Last 24 Hours (Table) 08/15/19 08/16/19 08/16/19 Range/Units 20:11 03:01 05:49 WBC (3.8-10.6) k/uL RBC (3.80-5.40) m/uL Hgb (11.4-16.0) gm/dL Hct (34.0-46.0) % RDW (11.5-15.5) % Neutrophils # (Manual) (1.3-7.7) k/uL Monocytes # (Manual) (0-1.0) k/uL Metamyelocytes # (Man) (0) k/uL Nucleated RBCs (0-0) /100 WBC Sodium (137-145) mmol/L BUN (7-17) mg/dL Creatinine (0.52-1.04) mg/dL Glucose (74-99) mg/dL POC Glucose (mg/dL) 155 H 226 H 200 H (75-99) mg/dL AST (14-36) U/L Total Protein (6.3-8.2) g/dL Albumin (3.5-5.0) g/dL 08/16/19 08/16/19 08/16/19 Range/Units 06:39 06:39 07:19 WBC 16.9 H (3.8-10.6) k/uL RBC 2.41 L (3.80-5.40) m/uL Hgb 7.3 L (11.4-16.0) gm/dL Hct 23.3 L (34.0-46.0) % RDW 23.5 H (11.5-15.5) % Neutrophils # (Manual) 14.03 H (1.3-7.7) k/uL Monocytes # (Manual) 1.35 H (0-1.0) k/uL Metamyelocytes # (Man) 0.17 H (0) k/uL Nucleated RBCs 5 H (0-0) /100 WBC Sodium 136 L (137-145) mmol/L BUN 35 H (7-17) mg/dL Creatinine 3.80 H (0.52-1.04) mg/dL Glucose 215 H (74-99) mg/dL POC Glucose (mg/dL) 226 H (75-99) mg/dL AST 58 H (14-36) U/L Total Protein 4.8 L (6.3-8.2) g/dL Albumin 2.4 L (3.5-5.0) g/dL 08/16/19 Range/Units 11:28 WBC (3.8-10.6) k/uL RBC (3.80-5.40) m/uL Hgb (11.4-16.0) gm/dL Hct (34.0-46.0) % RDW (11.5-15.5) % Neutrophils # (Manual) (1.3-7.7) k/uL Monocytes # (Manual) (0-1.0) k/uL Metamyelocytes # (Man) (0) k/uL Nucleated RBCs (0-0) /100 WBC Sodium (137-145) mmol/L BUN (7-17) mg/dL Creatinine (0.52-1.04) mg/dL Glucose (74-99) mg/dL POC Glucose (mg/dL) 287 H (75-99) mg/dL AST (14-36) U/L Total Protein (6.3-8.2) g/dL Albumin (3.5-5.0) g/dL Microbiology - Last 24 Hours (Table) 08/13/19 12:00 Blood Culture - Preliminary Blood No Growth after 72 hours Assessment and Plan (1) Ventricular tachycardia Status: Acute Code(s): I47.2 - VENTRICULAR TACHYCARDIA SNOMED Code(s): 73057248 (2) Acute on chronic renal failure Status: Acute Code(s): N17.9 - ACUTE KIDNEY FAILURE, UNSPECIFIED; N18.9 - CHRONIC KIDNEY DISEASE, UNSPECIFIED SNOMED Code(s): 062734459 (3) Amputation of left lower extremity below knee Status: Acute Code(s): Z89.512 - ACQUIRED ABSENCE OF LEFT LEG BELOW KNEE SNOMED Code(s): 706199699201101 (4) Anemia of chronic disease Status: Acute Code(s): D63.8 - ANEMIA IN OTHER CHRONIC DISEASES CLASSIFIED ELSEWHERE SNOMED Code(s): 877023104 (5) Atherosclerosis of [place]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 Meanwhile, continue beta tone
[2019-08-16] MEDS ORDERED: METOPROLOL TARTRATE 25 MG TAB PO SCH (21:00)
[2019-08-17] MEDS ORDERED: PANTOPRAZOLE 40 MG/10 ML VIAL IVP SCH (09:00)
== END 2019-08-16 16:07 | DRG 239 ==
LOC: OR 08:13 → 3SCARD 10:35 → OBSVTOIN 08-01 09:22 → 3SCARD 08-08 12:02
PROVIDERS: ADMIT Family Medicine; ATTEND Surgery
PROC: 5A1D70Z Performance of Urinary Filtration, Intermittent, Less than 6 Hours Per Day (ICD-10-PCS; 2019-07-30)
PROC: 0Y6Q0Z0 Detachment at Left 1st Toe, Complete, Open Approach (ICD-10-PCS; 2019-07-31)
PROC: 0Y6S0Z0 Detachment at Left 2nd Toe, Complete, Open Approach (ICD-10-PCS; 2019-07-31)
PROC: 0Y6J0Z1 Detachment at Left Lower Leg, High, Open Approach (ICD-10-PCS; principal; 2019-08-08 10:30)
PROC: 30233N1 Transfusion of Nonautologous Red Blood Cells into Peripheral Vein, Percutaneous Approach (ICD-10-PCS; 2019-08-13)
DX: E11.52 Type 2 diabetes mellitus with diabetic peripheral angiopathy with gangrene (principal); N18.6 End stage renal disease; I50.23 Acute on chronic systolic (congestive) heart failure; I13.2 Hypertensive heart and chronic kidney disease with heart failure and with stage 5 chronic kidney disease, or end stage renal disease; N17.9 Acute kidney failure, unspecified; I70.262 Atherosclerosis of native arteries of extremities with gangrene, left leg; M86.172 Other acute osteomyelitis, left ankle and foot; I47.2 Ventricular tachycardia; I42.9 Cardiomyopathy, unspecified; E87.1 Hypo-osmolality and hyponatremia; B37.0 Candidal stomatitis; K92.2 Gastrointestinal hemorrhage, unspecified; L02.612 Cutaneous abscess of left foot; E83.9 Disorder of mineral metabolism, unspecified; B95.62 Methicillin resistant Staphylococcus aureus infection as the cause of diseases classified elsewhere; E11.65 Type 2 diabetes mellitus with hyperglycemia; E11.69 Type 2 diabetes mellitus with other specified complication; E11.22 Type 2 diabetes mellitus with diabetic chronic kidney disease; E11.42 Type 2 diabetes mellitus with diabetic polyneuropathy; I95.3 Hypotension of hemodialysis; E11.649 Type 2 diabetes mellitus with hypoglycemia without coma; M41.9 Scoliosis, unspecified; L97.529 Non-pressure chronic ulcer of other part of left foot with unspecified severity; D63.1 Anemia in chronic kidney disease; B96.5 Pseudomonas (aeruginosa) (mallei) (pseudomallei) as the cause of diseases classified elsewhere; T38.3X6A Underdosing of insulin and oral hypoglycemic [antidiabetic] drugs, initial encounter; I99.8 Other disorder of circulatory system; E78.00 Pure hypercholesterolemia, unspecified; E61.1 Iron deficiency; I25.10 Atherosclerotic heart disease of native coronary artery without angina pectoris; E78.5 Hyperlipidemia, unspecified; N39.3 Stress incontinence (female) (male); M19.90 Unspecified osteoarthritis, unspecified site; I25.2 Old myocardial infarction; Z16.24 Resistance to multiple antibiotics; Z91.128 Patient's intentional underdosing of medication regimen for other reason; Z99.2 Dependence on renal dialysis; Z79.82 Long term (current) use of aspirin; Z79.02 Long term (current) use of antithrombotics/antiplatelets; Z79.4 Long term (current) use of insulin; Z79.899 Other long term (current) drug therapy; Z87.440 Personal history of urinary (tract) infections; Z90.49 Acquired absence of other specified parts of digestive tract; Z95.5 Presence of coronary angioplasty implant and graft; Z87.891 Personal history of nicotine dependence; Z86.59 Personal history of other mental and behavioral disorders; Z98.42 Cataract extraction status, left eye; Z98.41 Cataract extraction status, right eye; Y63.6 Underdosing and nonadministration of necessary drug, medicament or biological substance; Y92.009 Unspecified place in unspecified non-institutional (private) residence as the place of occurrence of the external cause; Z88.8 Allergy status to other drugs, medicaments and biological substances; Z83.3 Family history of diabetes mellitus; Z82.49 Family history of ischemic heart disease and other diseases of the circulatory system; Z80.1 Family history of malignant neoplasm of trachea, bronchus and lung; Z80.0 Family history of malignant neoplasm of digestive organs; Z80.9 Family history of malignant neoplasm, unspecified; W19.XXXA Unspecified fall, initial encounter
CPT/HCPCS: 64445; 64447; 76942; 80048; 80053; 80202; 82040; 82272; 82947; 83036; 83540; 83550; 83605; 83735; 84132; 85025; 85027; 86140; 86850; 86900; 86901; 86920; 87040; 87070; 87075; 87077; 87186; 87205; 87324; 88305; 88307; 88311; 88312; 90935; 93306

== ENCOUNTER 2019-08-18 11:36 | Inpatient (IN) | payer MEDICARE, OTHER ==
[2019-08-18 11:43] LABS: Glucose,Whole Blood 83 mg/dL (75-99)
--- NOTE | 2019-08-18 12:25 | ED ---
General Adult HPI - General Chief complaint: Altered Mental Status Stated complaint: Hypotension Time Seen by Provider: 08/18/19 11:42 Source: patient, family, EMS, RN notes reviewed Mode of arrival: EMS Limitations: no limitations - History of Present Illness Initial comments: Patient is a pleasant 74-year-old female presenting to the emergency department from halfway for drowsiness. Patient did receive Rindge this morning. Patient amiss to feeling tired however has no other complaints. Patient is easily arousable to voice and answers questions appropriately. 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 Patient has no pain. No dyspnea. Patient does not feel confused. No isolated area of weakness. No history of similar symptoms previously. Blood pressure has been reported as lower than normal. - Related Data Home Medications Medication Instructions Recorded Confirmed Folic Acid-Vit B Complex-Vit C 1 cap PO DAILY@1700 06/06/08/18/19 [Nephrocaps] Aspirin EC [Ecotrin Low Dose] 81 mg PO DAILY@1700 02/15/18 08/18/19 Atorvastatin [Lipitor] 80 mg PO HS 02/15/18 08/18/19 Calcium Acetate [PhosLo] 1,334 mg PO AC-BID@0700,1600 02/15/18 08/18/19 Calcium Carb-Mag Carb-Folic 1 tab PO AC-TID 02/15/18 08/18/19 [Magnebind 400] Furosemide [Lasix] 40 mg PO DAILY@0800 02/15/18 08/18/19 Lisinopril [Zestril] 10 mg PO HS 02/15/18 08/18/19 Citalopram Hydrobromide [CeleXA] 20 mg PO DAILY 05/04/19 08/18/19 Bisacodyl [Dulcolax] 10 mg RECTAL DAILY PRN 08/18/19 08/18/19 Cholecalciferol [Vitamin D3 (25 1,000 unit PO DAILY@169908/18/19 08/18/19 Mcg = 1000 Iu)] Cyanocobalamin [Vitamin B-12] 1,000 mcg PO DAILY@1700 08/18/19 08/18/19 HYDROcodone/APAP 5-325MG [Rindge 1 tab PO Q4HR PRN 08/18/19 08/18/19 5-325] INSULIN LISPRO (HumaLOG) [humaLOG] See Protocol SQ ACHS 08/18/19 08/18/19 Magnesium Hydroxide [Milk of 2,400 mg PO DAILY PRN 08/18/19 08/18/19 Magnesia] Na Phos,M-B/Na Phos,Di-Ba [Fleet 133 ml RECTAL DAILY PRN 08/18/19 08/18/19 Adult] Vancomycin HCl in 5 % Dextrose 1 gm IV TUTHSA 08/18/19 08/18/19 [Vancomycin 1 Gram/250 ml-D5w] Previous Rx's Medication Instructions Recorded Clopidogrel [Plavix] 75 mg PO DAILY #30 tab 11/22/16 Acetaminophen Tab [Tylenol] 650 mg PO Q6HR PRN tab 08/12/19 Insulin Detemir (Levemir) [Levemir] 10 unit SQ QAM@0700 syr 08/15/19 Allergies Allergy/AdvReac Type Severity Reaction Status Date / Time glyburide [From Diabeta] Allergy Rash/Hives Verified 08/18/19 11:50 Review of Systems ROS Statement: Those systems with pertinent positive or pertinent negative responses have been documented in the HPI. ROS Other: All systems not noted in ROS Statement are negative. Constitutional: Denies: fever Eyes: Denies: eye pain ENT: Denies: ear pain Respiratory: Denies: cough Cardiovascular: Denies: chest pain Endocrine: Reports: as per HPI Gastrointestinal: Denies: abdominal pain Genitourinary: Denies: dysuria Musculoskeletal: Denies: back pain Skin: Denies: rash Neurological: Denies: headache, weakness, confusion Past Medical History Past Medical History: Coronary Artery Disease (CAD), Chest Pain / Angina, Diabetes Mellitus, Dialysis, Hyperlipidemia, Hypertension, Myocardial Infarction (NM), Renal Disease Additional Past Medical History / Comment(s): End-stage renal disease with hemodialysis 3 times a week usually has on . th, sat.-left arm AV fistula, Non-STEMI 03/14/16, peripheral neuropathy bilateral feet cataracts bilaterally, frequent UTI'S, stress incontinence.lt. finger wound Last Myocardial Infarction Date:: 07/15/2017 History of Any Multi-Drug Resistant Organisms: MRSA Date of last positivie culture/infection: 07/31/19 MDRO Source:: Toe- Left First Past Surgical History: Appendectomy, Cholecystectomy, Heart Catheterization, Heart Catheterization With Stent, Tonsillectomy Additional Past Surgical History / Comment(s): 03/15/16 PTCA with stent to mid LAD,06-07-16 HEART CATH STENT TO PROX RCA. Restented mid LAD 11/20/16 A/V fistula with revision L upper arm, history of Lasix eye surgery and cataract removal. Past Anesthesia/Blood Transfusion Reactions: No Reported Reaction Date of Last Stent Placement:: 11/21/2016 Past Psychological History: Depression Smoking Status: Never smoker Past Alcohol Use History: None Reported Past Drug Use History: None Reported - Past Family History Father Family Medical History: Diabetes Mellitus Additional Family Medical History / Comment(s): Father of diabetic complications in his 40's Mother Family Medical History: Cancer, Myocardial Infarction (NM) Additional Family Medical History / Comment(s): Cancer unknown type. Mother of a NM in her early 50's Brother(s) Family Medical History: Cancer Additional Family Medical History / Comment(s): Her brother from lung cancer and cirrhosis of the liver. General Exam Limitations: no limitations General appearance: alert, in no apparent distress Head exam: Present: normocephalic Eye exam: Present: normal appearance, PERRL, EOMI ENT exam: Present: normal oropharynx Neck exam: Present: normal inspection. Absent: meningismus Respiratory exam: Present: normal lung sounds bilaterally Cardiovascular Exam: Present: regular rate, normal rhythm, systolic murmur GI/Abdominal exam: Present: soft. Absent: tenderness Extremities exam: Present: other (Left BKA. There is a small cast present on the lower portion. No odor or erythema visualized.) Neurological exam: Present: alert, oriented X3, CN II-XII intact. Absent: motor sensory deficit Expanded Neurological exam: Present: protecting the airway Patient oriented to: Present: person, place, time Speech: Present: fluid speech Motor strength exam: RUE: 5, LUE: 5, RLE: 5, LLE: 5 Eye Response: (4) open spontaneously Motor Response: (6) obeys commands Verbal Response: (5) oriented Psychiatric exam: Present: normal affect, normal mood Skin exam: Present: normal color Course Vital Signs 08/18/19 08/18/19 08/18/19 11:42 11:43 11:50 Temperature 97.7 F Pulse Rate 51 L Respiratory 16 Rate Blood Pressure 91/49 85/48 O2 Sat by Pulse 95 93 L 95 Oximetry 08/18/19 08/18/19 08/18/19 12:00 12:10 12:20 Temperature Pulse Rate 49 L Respiratory 21 Rate Blood Pressure 85/48 86/56 89/30 O2 Sat by Pulse 96 Oximetry 08/18/19 08/18/19 08/18/19 12:30 12:40 12:50 Temperature Pulse Rate 48 L 53 L 48 L Respiratory 14 14 17 Rate Blood Pressure 89/30 77/31 90/28 O2 Sat by Pulse Oximetry 08/18/19 08/18/19 08/18/19 13:00 13:10 13:20 Temperature Pulse Rate 56 L 54 L 52 L Respiratory 15 9 L Rate Blood Pressure 90/28 94/47 94/47 O2 Sat by Pulse Oximetry 08/18/19 08/18/19 08/18/19 13:30 13:40 13:50 Temperature Pulse Rate 52 L 54 L 51 L Respiratory Rate Blood Pressure 94/47 O2 Sat by Pulse Oximetry 08/18/19 14:00 Temperature Pulse Rate 53 L Respiratory Rate Blood Pressure O2 Sat by Pulse Oximetry - Reevaluation(s) Reevaluation #1: 08/18/19 16:17 reevaluated. Patient and family updated. Case was earlier discussed with Dr. Dominique. Call was then again received from Dr. Dominique believes this is Dr. Malone patient. Case was then discussed with Dr. Moe, who will admit. Patient does not make urine. 08/18/19 17:06 Central line was placed secondary to borderline blood pressures. Levophed will be started. Case was also discussed in detail with Dr. Reddy, who will consult for critical care. He does recommend adding Zosyn. 08/18/19 17:07 There is concern for possible sepsis diagnosed at 1700. Fluid bolus has been or dered. Blood culture and lactic acid will be ordered. Cardiology will be placed on consult. Repeat labs will be ordered. Troponin will need to be trended. Patient is anemic. Infectious disease and nephrology and vascular will also be placed on consult. EKG Findings - EKG Comments: EKG Findings:: White QRS complex with a rate of 60. QRS 160. QTC 572. QTC 572. Superior axis. Right bundle branch block. Diffuse T-wave inversion. Procedures - Central Line Placement Right Femoral Consent Obtained: verbal consent, written consent Patient Placed on Monitor/Pulse Ox: Yes Prep: mask, gown, gloves Central Line Prep: Chlorhexidine scrub, sterile drapes applied Local Anesthesia Used: Lidocaine 1% Central Line Lumen Inserted: triple Central Line Position: good blood return, all ports aspirated, flushed, capped, sutured in place with 3-0 nylon Dressing Applied: Tegaderm Patient Tolerated Procedure: well, no complications Complications: none Medical Decision Making - Lab Data Result diagrams: 08/18/19 13:55 08/18/19 13:55 Lab Results 08/18/19 08/18/19 08/18/19 Range/Units 11:41 13:55 13:55 WBC 32.8 H (3.8-10.6) k/uL RBC 2.44 L (3.80-5.40) m/uL Hgb 7.6 L (11.4-16.0) gm/dL Hct 24.9 L (34.0-46.0) % MCV 102.3 H D (80.0-100.0) fL MCH 31.1 (25.0-35.0) pg MCHC 30.4 L (31.0-37.0) g/dL RDW 24.5 H (11.5-15.5) % Plt Count 270 (150-450) k/uL Neutrophils % (Manual) 93 % Band Neutrophils % 2 % Lymphocytes % (Manual) 3 % Monocytes % (Manual) 3 % Neutrophils # (Manual) 31.10 H (1.3-7.7) k/uL Lymphocytes # (Manual) 0.98 L (1.0-4.8) k/uL Monocytes # (Manual) 0.98 (0-1.0) k/uL Nucleated RBCs 3 H (0-0) /100 WBC Manual Slide Review Performed Polychromasia Present Hypochromasia Marked Anisocytosis Marked Anisocytosis (manual) Present Macrocytosis Moderate PT 15.2 H (9.0-12.0) sec INR 1.5 H (<1.2) APTT 25.0 (22.0-30.0) sec Sodium (137-145) mmol/L Potassium (3.5-5.1) mmol/L Chloride (98-107) mmol/L Carbon Dioxide (22-30) mmol/L Anion Gap mmol/L BUN (7-17) mg/dL Creatinine (0.52-1.04) mg/dL Est GFR (CKD-EPI)AfAm (>60 ml/min/1.73 sqM) Est GFR (CKD-EPI)NonAf (>60 ml/min/1.73 sqM) Glucose (74-99) mg/dL POC Glucose (mg/dL) 83 (75-99) mg/dL POC Glu Education Managers ID Shannan Medina Calcium (8.4-10.2) mg/dL Total Bilirubin (0.2-1.3) mg/dL AST (14-36) U/L ALT (9-52) U/L Alkaline Phosphatase (38-126) U/L Creatine Kinase (30-135) U/L Troponin I (0.000-0.034) ng/mL NT-Pro-B Natriuret Pep pg/mL Total Protein (6.3-8.2) g/dL Albumin (3.5-5.0) g/dL 08/18/19 08/18/19 08/18/19 Range/Units 13:55 13:55 13:55 WBC (3.8-10.6) k/uL RBC (3.80-5.40) m/uL Hgb (11.4-16.0) gm/dL Hct (34.0-46.0) % MCV (80.0-100.0) fL MCH (25.0-35.0) pg MCHC (31.0-37.0) g/dL RDW (11.5-15.5) % Plt Count (150-450) k/uL Neutrophils % (Manual) % Band Neutrophils % % Lymphocytes % (Manual) % Monocytes % (Manual) % Neutrophils # (Manual) (1.3-7.7) k/uL Lymphocytes # (Manual) (1.0-4.8) k/uL Monocytes # (Manual) (0-1.0) k/uL Nucleated RBCs (0-0) /100 WBC Manual Slide Review Polychromasia Hypochromasia Anisocytosis Anisocytosis (manual) Macrocytosis PT (9.0-12.0) sec INR (<1.2) APTT (22.0-30.0) sec Sodium 138 (137-145) mmol/L Potassium 5.4 H (3.5-5.1) mmol/L Chloride 98 (98-107) mmol/L Carbon Dioxide 18 L (22-30) mmol/L Anion Gap 22 mmol/L BUN 28 H (7-17) mg/dL Creatinine 4.37 H (0.52-1.04) mg/dL Est GFR (CKD-EPI)AfAm 11 (>60 ml/min/1.73 sqM) Est GFR (CKD-EPI)NonAf 9 (>60 ml/min/1.73 sqM) Glucose 103 H (74-99) mg/dL POC Glucose (mg/dL) (75-99) mg/dL POC Glu Education Managers ID Calcium 9.5 (8.4-10.2) mg/dL Total Bilirubin 1.2 (0.2-1.3) mg/dL AST 204 H (14-36) U/L ALT 82 H (9-52) U/L Alkaline Phosphatase 141 H (38-126) U/L Creatine Kinase 336 H (30-135) U/L Troponin I 1.220 H* (0.000-0.034) ng/mL NT-Pro-B Natriuret Pep 79252 pg/mL Total Protein 5.4 L (6.3-8.2) g/dL Albumin 2.8 L (3.5-5.0) g/dL Critical Care Time Critical Care Time: Yes Total Critical Care Time: 33 Disposition Clinical Impression: Hypotension, Sepsis Disposition: ADMITTED IP TO THIS HOSP Condition: Critical Is patient prescribed a controlled substance at d/c from ED?: No Decision Time: 17:11
[2019-08-18 14:20] LABS: Albumin 2.8 g/dL (3.5-5.0); Calcium 9.5 mg/dL (8.4-10.2); INR 1.5 (<1.2); Potassium 5.4 mmol/L (3.5-5.1); Prothrombin Time 15.2 sec (9.0-12.0); Total Bilirubin 1.2 mg/dL (0.2-1.3); Total Protein 5.4 g/dL (6.3-8.2)
--- NOTE | 2019-08-18 14:24 | XR ---
EXAMINATION TYPE: XR chest 2V DATE OF EXAM: 08/18/2019 COMPARISON: 04/18/2019 HISTORY: Altered mental status TECHNIQUE: Frontal and lateral views of the chest are obtained. FINDINGS: Heart is enlarged. There is no gross heart failure. There is some blunting right costophre meredith angle. There are chest leads. There is minimal atelectasis at the lung bases. IMPRESSION: There is new right pleural effusion compared to old exam. Mild pulmonary congestion with out overt heart failure.
--- NOTE | 2019-08-18 14:27 | CT ---
EXAMINATION TYPE: CT brain wo con DATE OF EXAM: 08/18/2019 COMPARISON: 04/18/2019 HISTORY: Weakness and hypotension. CT DLP: 1143.4 mGycm Automated exposure control for dose reduction was used. FINDINGS: There is cerebral cortical atrophy. There is no mass effect nor midline shift. There is no sign of in tracranial hemorrhage. Calvarium is intact. IMPRESSION: CEREBRAL ATROPHY. NO ACUTE INTRACRANIAL ABNORMALITY. NO CHANGE.
[2019-08-18 14:28] LABS: Anisocytosis Marked; HCT 24.9 % (34.0-46.0); HGB 7.6 gm/dL (11.4-16.0); Hypochromasia Marked; MCH 31.1 pg (25.0-35.0); MCHC 30.4 g/dL (31.0-37.0); Macrocytosis Moderate; Mean Platelet Volume 8.2; Platelet Count 270 k/uL (150-450); RBC 2.44 m/uL (3.80-5.40); RDW 24.5 % (11.5-15.5)
[2019-08-18 14:29] LABS: MCV 102.3 fL (80.0-100.0)
[2019-08-18 14:40] LABS: Band Neutrophils % 2 %; Neutrophils % (M) 93 %; Nucleated Red Blood Cells 3 /100 WBC (0-0); Total Cells Counted 200
[2019-08-18 14:41] LABS: Anisocytosis (M) Present; Lymphocytes # (M) 0.98 k/uL (1.0-4.8); Monocytes # (M) 0.98 k/uL (0-1.0); Polychromasia Present; WBC 32.8 k/uL (3.8-10.6)
[2019-08-18] MEDS ORDERED: SODIUM CHLORIDE 0.9% 1,000 ML IV STA ×3 (15:42→17:00)
[2019-08-18] MEDS ORDERED: SODIUM CHLORIDE 0.9% 500 ML 500 ML IV STA (15:42)
[2019-08-18] MEDS ORDERED: VANCOMYCIN IV PER PHARMACY 1 EACH MISC MISCELLANE PRN (17:12)
[2019-08-18] MEDS ORDERED: PIPERACILLIN-TAZOBACTAM 3.375 GM in SODIUM CHLORIDE 0.9% 100 ML IVPB STA (17:12)
[2019-08-18] MEDS ORDERED: NALOXONE 0.4 MG/ML 1 ML VIAL IV PRN (17:13)
[2019-08-18] MEDS ORDERED: NOREPINEPHRINE 32 MG in SODIUM CHLORIDE 0.9% 218 ML IV SCH (17:15)
[2019-08-18] MEDS ORDERED: SODIUM CHLORIDE 0.9% 1,000 ML IV SCH (17:15)
[2019-08-18] MEDS ORDERED: PANTOPRAZOLE 40 MG/10 ML VIAL IV SCH (17:15)
[2019-08-18] MEDS ORDERED: ASPIRIN 81 MG PO STA (17:15)
[2019-08-18] MEDS ORDERED: VANCOMYCIN 1,250 MG in SODIUM CHLORIDE 0.9% 250 ML IVPB STA (17:20)
[2019-08-18] MEDS ORDERED: SODIUM BICARB 8.4% 50 ML SYR (1 MEQ/ML) IV STA ×2 (20:32→20:44)
[2019-08-18] MEDS ORDERED: SODIUM CHLORIDE 0.9% 1,000 ML IV ONE (20:44)
[2019-08-18] MEDS ORDERED: SODIUM CHLORIDE 0.9% 50 ML with VASOPRESSIN 20 UNIT IVPB SCH ×2 (20:45)
--- NOTE | 2019-08-18 21:13 | ED ---
Medical Decision Making - Medical Decision Making 74 female continuing to decompensate here in the ER, patient is admitted ICU. Patient given fluid bolus but was difficult to give necessary bolus secondary to respiratory status and patient's dialysis and inability to make urine. given aggressive hydration here in the ER despite dialysis and CHF history Patient began to have respiratory distress with hypoxia continuing long board lower blood pressure. Patient's blood pressure continued to lower despite Levophed therapy, vasopressin is added, patient is in abated for airway protection and hypoxia, CHF. Patient's family spoke with at length regarding patient's poor, grave prognosis, they understand the severity of the patient's illness questions are answered. Patient does have documentation showing full code. - Lab Data Result diagrams: 08/18/19 13:55 08/18/19 13:55 Lab Results 08/18/19 08/18/19 08/18/19 Range/Units 11:41 13:55 13:55 WBC 32.8 H (3.8-10.6) k/uL RBC 2.44 L (3.80-5.40) m/uL Hgb 7.6 L (11.4-16.0) gm/dL Hct 24.9 L (34.0-46.0) % MCV 102.3 H D (80.0-100.0) fL MCH 31.1 (25.0-35.0) pg MCHC 30.4 L (31.0-37.0) g/dL RDW 24.5 H (11.5-15.5) % Plt Count 270 (150-450) k/uL Neutrophils % (Manual) 93 % Band Neutrophils % 2 % Lymphocytes % (Manual) 3 % Monocytes % (Manual) 3 % Neutrophils # (Manual) 31.10 H (1.3-7.7) k/uL Lymphocytes # (Manual) 0.98 L (1.0-4.8) k/uL Monocytes # (Manual) 0.98 (0-1.0) k/uL Nucleated RBCs 3 H (0-0) /100 WBC Manual Slide Review Performed Polychromasia Present Hypochromasia Marked Anisocytosis Marked Anisocytosis (manual) Present Macrocytosis Moderate PT 15.2 H (9.0-12.0) sec INR 1.5 H (<1.2) APTT 25.0 (22.0-30.0) sec Sodium (137-145) mmol/L Potassium (3.5-5.1) mmol/L Chloride (98-107) mmol/L Carbon Dioxide (22-30) mmol/L Anion Gap mmol/L BUN (7-17) mg/dL Creatinine (0.52-1.04) mg/dL Est GFR (CKD-EPI)AfAm (>60 ml/min/1.73 sqM) Est GFR (CKD-EPI)NonAf (>60 ml/min/1.73 sqM) Glucose (74-99) mg/dL POC Glucose (mg/dL) 83 (75-99) mg/dL POC Glu Data Librarian ID Shannan Medina Calcium (8.4-10.2) mg/dL Total Bilirubin (0.2-1.3) mg/dL AST (14-36) U/L ALT (9-52) U/L Alkaline Phosphatase (38-126) U/L Creatine Kinase (30-135) U/L Troponin I (0.000-0.034) ng/mL NT-Pro-B Natriuret Pep pg/mL Total Protein (6.3-8.2) g/dL Albumin (3.5-5.0) g/dL 08/18/19 08/18/19 08/18/19 Range/Units 13:55 13:55 13:55 WBC (3.8-10.6) k/uL RBC (3.80-5.40) m/uL Hgb (11.4-16.0) gm/dL Hct (34.0-46.0) % MCV (80.0-100.0) fL MCH (25.0-35.0) pg MCHC (31.0-37.0) g/dL RDW (11.5-15.5) % Plt Count (150-450) k/uL Neutrophils % (Manual) % Band Neutrophils % % Lymphocytes % (Manual) % Monocytes % (Manual) % Neutrophils # (Manual) (1.3-7.7) k/uL Lymphocytes # (Manual) (1.0-4.8) k/uL Monocytes # (Manual) (0-1.0) k/uL Nucleated RBCs (0-0) /100 WBC Manual Slide Review Polychromasia Hypochromasia Anisocytosis Anisocytosis (manual) Macrocytosis PT (9.0-12.0) sec INR (<1.2) APTT (22.0-30.0) sec Sodium 138 (137-145) mmol/L Potassium 5.4 H (3.5-5.1) mmol/L Chloride 98 (98-107) mmol/L Carbon Dioxide 18 L (22-30) mmol/L Anion Gap 22 mmol/L BUN 28 H (7-17) mg/dL Creatinine 4.37 H (0.52-1.04) mg/dL Est GFR (CKD-EPI)AfAm 11 (>60 ml/min/1.73 sqM) Est GFR (CKD-EPI)NonAf 9 (>60 ml/min/1.73 sqM) Glucose 103 H (74-99) mg/dL POC Glucose (mg/dL) (75-99) mg/dL POC Glu Data Librarian ID Calcium 9.5 (8.4-10.2) mg/dL Total Bilirubin 1.2 (0.2-1.3) mg/dL AST 204 H (14-36) U/L ALT 82 H (9-52) U/L Alkaline Phosphatase 141 H (38-126) U/L Creatine Kinase 336 H (30-135) U/L Troponin I 1.220 H* (0.000-0.034) ng/mL NT-Pro-B Natriuret Pep 55567 pg/mL Total Protein 5.4 L (6.3-8.2) g/dL Albumin 2.8 L (3.5-5.0) g/dL - Radiology Data Radiology results: report reviewed (Chest x-ray shows positive ET tube placement), image reviewed Critical Care Time Critical Care Time: Yes Total Critical Care Time: 31 Disposition Clinical Impression: Hypotension, Sepsis, Altered mental status, Acute respiratory failure, Septic shock, Lactic acidosis Disposition: ADMITTED IP TO THIS HOSP Condition: Critical Procedures - Sepsis Sepsis Focused Exam #1 Time Sepsis Criteria Met: 18:11 Sepsis Focused Exam Date: 08/18/19 Sepsis Focused Exam Time: 22:11 Sepsis Focused Exam Complete: Yes Vital Signs & RN Notes Reviewed: Yes Capillary Refill: > 2 Seconds: Fingers, Toes (Unable to examine left toe secondary to BKA) Peripheral Pulses: Absent: Posterior Tibialis (L), Weak: Radial (R), Radial (L), Posterior Tibialis (R), Dorsalis Pedis (R), Dorsalis Pedis (L) Skin Color: Pallor Respiratory Exam: rhonchi, decreased breath sounds Cardiovascular Exam: regular rate
--- NOTE | 2019-08-18 21:24 | XR ---
EXAMINATION TYPE: XR chest 1V portable DATE OF EXAM: 08/18/2019 COMPARISON: 08/18/2019 HISTORY: Tube placement TECHNIQUE: Single frontal view of the chest is obtained. FINDINGS: Endotracheal tube is 3 cm from the rashmi. There is nasogastric tube in good position with the tip at the gastric fundus. Heart is enlarged. There is no gross heart failure. There is evidence of right pleural effusion. There are chest leads. IMPRESSION: Endotracheal tube is in good position.
[2019-08-18 21:28] LABS: Glucose,Whole Blood 59 mg/dL (75-99)
[2019-08-18] MEDS ORDERED: PROPOFOL 1,000 MG in EMPTY BAG 1 BAG IV SCH (21:45)
[2019-08-18 21:46] LABS: Glucose,Whole Blood 97 mg/dL (75-99)
[2019-08-18] MEDS ORDERED: SODIUM CHLORIDE 0.9% 2,000 ML IV ONE (21:49)
[2019-08-18] MEDS ORDERED: EPINEPHrine 10 ML SYRINGE (0.1 MG/ML) ONE (21:56)
[2019-08-18] MEDS ORDERED: SODIUM BICARB 8.4% 50 ML SYR (1 MEQ/ML) ONE (21:56)
--- NOTE | 2019-08-18 22:22 | ED ---
Medical Decision Making - Medical Decision Making 74 female responding to a CPR code in the ICU, patient had uncertain CODE STATUS, ACLS protocol was initiated, and speak with family decision is made to start CPR understanding that this time further treatment is futile, patient family in agreement. I evaluation patient's pupils are fixed and dilated, asystolic, apneic. Spoke with family regarding patient's passing, patient pronounced at 2215 of 08/18/2019. Patient does of cardiac arrest secondary to severe sepsis hypoxia and hypotension, severe acidosis. - Lab Data Result diagrams: 08/18/19 13:55 08/18/19 13:55 Lab Results 08/18/19 08/18/19 08/18/19 Range/Units 11:41 13:55 13:55 WBC 32.8 H (3.8-10.6) k/uL RBC 2.44 L (3.80-5.40) m/uL Hgb 7.6 L (11.4-16.0) gm/dL Hct 24.9 L (34.0-46.0) % MCV 102.3 H D (80.0-100.0) fL MCH 31.1 (25.0-35.0) pg MCHC 30.4 L (31.0-37.0) g/dL RDW 24.5 H (11.5-15.5) % Plt Count 270 (150-450) k/uL Neutrophils % (Manual) 93 % Band Neutrophils % 2 % Lymphocytes % (Manual) 3 % Monocytes % (Manual) 3 % Neutrophils # (Manual) 31.10 H (1.3-7.7) k/uL Lymphocytes # (Manual) 0.98 L (1.0-4.8) k/uL Monocytes # (Manual) 0.98 (0-1.0) k/uL Nucleated RBCs 3 H (0-0) /100 WBC Manual Slide Review Performed Polychromasia Present Hypochromasia Marked Anisocytosis Marked Anisocytosis (manual) Present Macrocytosis Moderate PT 15.2 H (9.0-12.0) sec INR 1.5 H (<1.2) APTT 25.0 (22.0-30.0) sec Sodium (137-145) mmol/L Potassium (3.5-5.1) mmol/L Chloride (98-107) mmol/L Carbon Dioxide (22-30) mmol/L Anion Gap mmol/L BUN (7-17) mg/dL Creatinine (0.52-1.04) mg/dL Est GFR (CKD-EPI)AfAm (>60 ml/min/1.73 sqM) Est GFR (CKD-EPI)NonAf (>60 ml/min/1.73 sqM) Glucose (74-99) mg/dL POC Glucose (mg/dL) 83 (75-99) mg/dL POC Glu Instrument Repairer ID Shannan Medina Calcium (8.4-10.2) mg/dL Total Bilirubin (0.2-1.3) mg/dL AST (14-36) U/L ALT (9-52) U/L Alkaline Phosphatase (38-126) U/L Creatine Kinase (30-135) U/L Troponin I (0.000-0.034) ng/mL NT-Pro-B Natriuret Pep pg/mL Total Protein (6.3-8.2) g/dL Albumin (3.5-5.0) g/dL 08/18/19 08/18/19 08/18/19 Range/Units 13:55 13:55 13:55 WBC (3.8-10.6) k/uL RBC (3.80-5.40) m/uL Hgb (11.4-16.0) gm/dL Hct (34.0-46.0) % MCV (80.0-100.0) fL MCH (25.0-35.0) pg MCHC (31.0-37.0) g/dL RDW (11.5-15.5) % Plt Count (150-450) k/uL Neutrophils % (Manual) % Band Neutrophils % % Lymphocytes % (Manual) % Monocytes % (Manual) % Neutrophils # (Manual) (1.3-7.7) k/uL Lymphocytes # (Manual) (1.0-4.8) k/uL Monocytes # (Manual) (0-1.0) k/uL Nucleated RBCs (0-0) /100 WBC Manual Slide Review Polychromasia Hypochromasia Anisocytosis Anisocytosis (manual) Macrocytosis PT (9.0-12.0) sec INR (<1.2) APTT (22.0-30.0) sec Sodium 138 (137-145) mmol/L Potassium 5.4 H (3.5-5.1) mmol/L Chloride 98 (98-107) mmol/L Carbon Dioxide 18 L (22-30) mmol/L Anion Gap 22 mmol/L BUN 28 H (7-17) mg/dL Creatinine 4.37 H (0.52-1.04) mg/dL Est GFR (CKD-EPI)AfAm 11 (>60 ml/min/1.73 sqM) Est GFR (CKD-EPI)NonAf 9 (>60 ml/min/1.73 sqM) Glucose 103 H (74-99) mg/dL POC Glucose (mg/dL) (75-99) mg/dL POC Glu Instrument Repairer ID Calcium 9.5 (8.4-10.2) mg/dL Total Bilirubin 1.2 (0.2-1.3) mg/dL AST 204 H (14-36) U/L ALT 82 H (9-52) U/L Alkaline Phosphatase 141 H (38-126) U/L Creatine Kinase 336 H (30-135) U/L Troponin I 1.220 H* (0.000-0.034) ng/mL NT-Pro-B Natriuret Pep 76173 pg/mL Total Protein 5.4 L (6.3-8.2) g/dL Albumin 2.8 L (3.5-5.0) g/dL Disposition Clinical Impression: Hypotension, Sepsis, Altered mental status, Acute respiratory failure, Septic shock, Lactic acidosis, Cardiopulmonary arrest, Hypoxia Disposition: Condition: Critical Preliminary Cause of : CPA Procedures - Sepsis Sepsis Focused Exam #1 Time Sepsis Criteria Met: 18:11
[2019-08-19 02:12] VITALS: BP 89/48; PULSE 0; RESP 129; TEMP 92.1
[2019-08-19] MEDS ORDERED: PIPERACILLIN-TAZOBACTAM 3.375 GM in SODIUM CHLORIDE 0.9% 100 ML IVPB SCH (06:00)
[2019-08-19] MEDS ORDERED: VANCOMYCIN 1,250 MG in SODIUM CHLORIDE 0.9% 250 ML IVPB ONE (09:00)
[2019-08-19] MEDS ORDERED: ASPIRIN 325 MG TAB PO SCH (09:00)
--- NOTE | 2019-08-19 10:21 | P.HPIM ---
History of Present Illness Patient was not seen by me in my service as patient in about an hour after lower arrival to ICU. Past Medical History Past Medical History: Coronary Artery Disease (CAD), Chest Pain / Angina, Diabetes Mellitus, Dialysis, Hyperlipidemia, Hypertension, Myocardial Infarction (SC), Renal Disease Additional Past Medical History / Comment(s): End-stage renal disease with hemodialysis 3 times a week usually has on . thur, sat.-left arm AV fistula, Non-STEMI 03/14/16, peripheral neuropathy bilateral feet cataracts bilaterally, frequent UTI'S, stress incontinence.lt. finger wound Last Myocardial Infarction Date:: 07/15/2017 History of Any Multi-Drug Resistant Organisms: MRSA Date of last positivie culture/infection: 07/31/19 MDRO Source:: Toe- Left First Past Surgical History: Appendectomy, Cholecystectomy, Heart Catheterization, Heart Catheterization With Stent, Tonsillectomy Additional Past Surgical History / Comment(s): 03/15/16 PTCA with stent to mid LAD,06-07-16 HEART CATH STENT TO PROX RCA. Restented mid LAD 11/20/16 A/V fistula with revision L upper arm, history of Lasix eye surgery and cataract removal. Past Anesthesia/Blood Transfusion Reactions: No Reported Reaction Date of Last Stent Placement:: 11/21/2016 Past Psychological History: Depression Smoking Status: Never smoker Past Alcohol Use History: None Reported Past Drug Use History: None Reported - Past Family History Father Family Medical History: Diabetes Mellitus Additional Family Medical History / Comment(s): Father of diabetic complications in his 40's Mother Family Medical History: Cancer, Myocardial Infarction (SC) Additional Family Medical History / Comment(s): Cancer unknown type. Mother of a SC in her early 50's Brother(s) Family Medical History: Cancer Additional Family Medical History / Comment(s): Her brother from lung cancer and cirrhosis of the liver. Medications and Allergies Home Medications Medication Instructions Recorded Confirmed Type Folic Acid-Vit B Complex-Vit C 1 cap PO DAILY@1700 06/06/16 08/18/19 History [Nephrocaps] Clopidogrel [Plavix] 75 mg PO DAILY #30 tab 11/22/16 08/18/19 Rx Aspirin EC [Ecotrin Low Dose] 81 mg PO DAILY@1700 02/15/18 08/18/19 History Atorvastatin [Lipitor] 80 mg PO HS 02/15/18 08/18/19 History Calcium Acetate [PhosLo] 1,334 mg PO AC-BID@0700,1600 02/15/18 08/18/19 History Calcium Carb-Mag Carb-Folic 1 tab PO AC-TID 02/15/18 08/18/19 History [Magnebind 400] Furosemide [Lasix] 40 mg PO DAILY@0800 02/15/18 08/18/19 History Lisinopril [Zestril] 10 mg PO HS 02/15/18 08/18/19 History Citalopram Hydrobromide [CeleXA] 20 mg PO DAILY 05/04/19 08/18/19 History Acetaminophen Tab [Tylenol] 650 mg PO Q6HR PRN tab 08/12/19 08/18/19 Rx Insulin Detemir (Levemir) [Levemir] 10 unit SQ QAM@0700 syr 08/15/19 08/18/19 Rx Bisacodyl [Dulcolax] 10 mg RECTAL DAILY PRN 08/18/19 08/18/19 History Cholecalciferol [Vitamin D3 (25 1,000 unit PO DAILY@1700 08/18/19 08/18/19 History Mcg = 1000 Iu)] Cyanocobalamin [Vitamin B-12] 1,000 mcg PO DAILY@1700 08/18/19 08/18/19 History HYDROcodone/APAP 5-325MG [[place] 1 tab PO Q4HR PRN 08/18/19 08/18/19 History 5-325] INSULIN LISPRO (HumaLOG) [humaLOG] See Protocol SQ ACHS 08/18/19 08/18/19 History Magnesium Hydroxide [Milk of 2,400 mg PO DAILY PRN 08/18/19 08/18/19 History Magnesia] Na Phos,M-B/Na Phos,Di-Ba [Fleet 133 ml RECTAL DAILY PRN 08/18/19 08/18/19 H istory Adult] Vancomycin HCl in 5 % Dextrose 1 gm IV TUTHSA 08/18/19 08/18/19 History [Vancomycin 1 Gram/250 ml-D5w] Allergies Allergy/AdvReac Type Severity Reaction Status Date / Time glyburide [From Diabeta] Allergy Rash/Hives Verified 08/18/19 11:50 Physical Exam Vitals: Vital Signs Temp Pulse Resp BP Pulse Ox 08/18/19 22:00 92.1 F L 0 L 129 H 89/48 69 L 08/18/19 21:47 58 L 19 81/35 79 L 08/18/19 21:45 93.0 F L 74 19 81/35 78 L 08/18/19 21:30 72 25 H 92/51 82 L 08/18/19 21:16 78 16 08/18/19 21:05 86 14 113/57 96 08/18/19 21:00 87 12 121/67 92 L 08/18/19 20:48 68 10 L 116/59 88 L 08/18/19 20:43 61 10 L 97/63 96 08/18/19 20:40 61 14 80/27 97 08/18/19 20:36 62 8 L 81/41 96 08/18/19 20:23 35 L 10 L 78/30 88 L 08/18/19 20:15 46 L 13 102/55 82 L 08/18/19 20:00 53 L 21 102/55 87 L 08/18/19 19:45 56 L 19 102/55 08/18/19 19:30 55 L 19 102/55 08/18/19 19:28 51 L 14 102/55 95 08/18/19 19:15 53 L 18 107/74 08/18/19 19:00 52 L 107/74 08/18/19 18:52 56 L 20 107/74 95 08/18/19 18:45 54 L 81/61 08/18/19 18:30 81/61 08/18/19 18:15 52 L 19 86/32 90 L 08/18/19 18:00 49 L 16 96/28 81 L 08/18/19 17:45 47 L 17 96/28 94 L 08/18/19 17:30 43 L 18 96/28 90 L 08/18/19 17:00 56 L 19 95/46 08/18/19 16:30 53 L 16 107/44 08/18/19 16:00 53 L 90/40 08/18/19 15:30 55 L 08/18/19 15:00 51 L 98 08/18/19 14:30 53 L 97 08/18/19 14:00 53 L 08/18/19 13:50 51 L 08/18/19 13:40 54 L 08/18/19 13:30 52 L 94/47 08/18/19 13:20 52 L 94/47 08/18/19 13:10 54 L 9 L 94/47 08/18/19 13:00 56 L 15 90/28 08/18/19 12:50 48 L 17 90/28 08/18/19 12:40 53 L 14 77/31 08/18/19 12:30 48 L 14 89/30 08/18/19 12:20 49 L 21 89/30 08/18/19 12:10 86/56 08/18/19 12:00 85/48 96 08/18/19 11:50 85/48 95 08/18/19 11:43 97.7 F 51 L 16 91/49 93 L 08/18/19 11:42 95 Intake and Output 08/18/19 08/19/19 08/19/19 22:59 06:59 14:59 Intake Total 28.942 Balance 28.942 Intake: Intake, IV Titration .942 Amount Norepinephrine 32 mg In .942 Sodium Chloride 0.9% 218 ml @ 0.05 MCG/KG/MIN 1.86 mls/hr IV .Q24H [facility] Rx#: [id number] Results CBC & Chem 7: 08/18/19 13:55 08/18/19 13:55 Labs: Abnormal Lab Results - Last 24 Hours (Table) 08/18/19 08/18/19 08/18/19 Range/Units 13:55 13:55 13:55 WBC 32.8 H (3.8-10.6) k/uL RBC 2.44 L (3.80-5.40) m/uL Hgb 7.6 L (11.4-16.0) gm/dL Hct 24.9 L (34.0-46.0) % MCV 102.3 H D (80.0-100.0) fL MCHC 30.4 L (31.0-37.0) g/dL RDW 24.5 H (11.5-15.5) % Neutrophils # (Manual) 31.10 H (1.3-7.7) k/uL Lymphocytes # (Manual) 0.98 L (1.0-4.8) k/uL Nucleated RBCs 3 H (0-0) /100 WBC PT 15.2 H (9.0-12.0) sec INR 1.5 H (<1.2) Potassium 5.4 H (3.5-5.1) mmol/L Carbon Dioxide 18 L (22-30) mmol/L BUN 28 H (7-17) mg/dL Creatinine 4.37 H (0.52-1.04) mg/dL Glucose 103 H (74-99) mg/dL POC Glucose (mg/dL) (75-99) mg/dL Plasma Lactic Acid Isidoro (0.7-2.0) mmol/L AST 204 H (14-36) U/L ALT 82 H (9-52) U/L Alkaline Phosphatase 141 H (38-126) U/L Creatine Kinase 336 H (30-135) U/L Troponin I (0.000-0.034) ng/mL Total Protein 5.4 L (6.3-8.2) g/dL Albumin 2.8 L (3.5-5.0) g/dL 08/18/19 08/18/19 08/18/19 Range/Units 13:55 17:50 20:16 WBC (3.8-10.6) k/uL RBC (3.80-5.40) m/uL Hgb (11.4-16.0) gm/dL Hct (34.0-46.0) % MCV (80.0-100.0) fL MCHC (31.0-37.0) g/dL RDW (11.5-15.5) % Neutrophils # (Manual) (1.3-7.7) k/uL Lymphocytes # (Manual) (1.0-4.8) k/uL Nucleated RBCs (0-0) /100 WBC PT (9.0-12.0) sec INR (<1.2) Potassium (3.5-5.1) mmol/L Carbon Dioxide (22-30) mmol/L BUN (7-17) mg/dL Creatinine (0.52-1.04) mg/dL Glucose (74-99) mg/dL POC Glucose (mg/dL) (75-99) mg/dL Plasma Lactic Acid Isidoro 18.3 H* (0.7-2.0) mmol/L AST (14-36) U/L ALT (9-52) U/L Alkaline Phosphatase (38-126) U/L Creatine Kinase (30-135) U/L Troponin I 1.220 H* 1.090 H* (0.000-0.034) ng/mL Total Protein (6.3-8.2) g/dL Albumin (3.5-5.0) g/dL 08/18/19 Range/Units 21:16 WBC (3.8-10.6) k/uL RBC (3.80-5.40) m/uL Hgb (11.4-16.0) gm/dL Hct (34.0-46.0) % MCV (80.0-100.0) fL MCHC (31.0-37.0) g/dL RDW (11.5-15.5) % Neutrophils # (Manual) (1.3-7.7) k/uL Lymphocytes # (Manual) (1.0-4.8) k/uL Nucleated RBCs (0-0) /100 WBC PT (9.0-12.0) sec INR (<1.2) Potassium (3.5-5.1) mmol/L Carbon Dioxide (22-30) mmol/L BUN (7-17) mg/dL Creatinine (0.52-1.04) mg/dL Glucose (74-99) mg/dL POC Glucose (mg/dL) 59 L (75-99) mg/dL Plasma Lactic Acid Isidoro (0.7-2.0) mmol/L AST (14-36) U/L ALT (9-52) U/L Alkaline Phosphatase (38-126) U/L Creatine Kinase (30-135) U/L Troponin I (0.000-0.034) ng/mL Total Protein (6.3-8.2) g/dL Albumin (3.5-5.0) g/dL
--- NOTE | 2019-08-19 10:22 | P.DS ---
Providers Date of admission: 08/18/19 17:13 Attending physician: Lavern Moe Consults: 08/18/19 17:04 Consult Physician Urgent Consulting Provider: Erik Meza Consult Reason/Comments: post op care Do you want consulting provider notified?: Yes 08/18/19 17:05 Consult Physician Urgent Consulting Provider: Loreta Guzman Consult Reason/Comments: Evaluate for sepsis Do you want consulting provider notified?: Yes Consult Physician Urgent Consulting Provider: Jacy Brooks Consult Reason/Comments: crf Do you want consulting provider notified?: Yes 08/18/19 17:13 Consult Physician Stat Consulting Provider: Dwight Reddy Consult Reason/Comments: Critical care Do you want consulting provider notified?: Already Contacted 08/18/19 17:15 Consult Physician Urgent Consulting Provider: Darwin Guzman Consult Reason/Comments: Cardiac evaluation and treatment Do you want consulting provider notified?: Yes Primary care physician: Jhon Armstrong Hospital Course: Patient after about an hour of admission to ICU for possible sepsis source not clear. Please refer to to nursing documentation for details of time of . Patient Condition at Discharge: Critical Plan - Discharge Summary New Discharge Prescriptions: No Action Folic Acid-Vit B Complex-Vit C [Nephrocaps] 1 cap PO DAILY@1700 Clopidogrel [Plavix] 75 mg PO DAILY #30 tab Aspirin EC [Ecotrin Low Dose] 81 mg PO DAILY@1700 Atorvastatin [Lipitor] 80 mg PO HS Calcium Acetate [PhosLo] 1,334 mg PO AC-BID@0700,1600 Calcium Carb-Mag Carb-Folic [Magnebind 400] 1 tab PO AC-TID Furosemide [Lasix] 40 mg PO DAILY@0800 Lisinopril [Zestril] 10 mg PO HS Citalopram Hydrobromide [CeleXA] 20 mg PO DAILY Acetaminophen Tab [Tylenol] 650 mg PO Q6HR PRN tab PRN Reason: Fever and/ or Mild Pain Insulin Detemir (Levemir) [Levemir] 10 unit SQ QAM@0700 syr Bisacodyl [Dulcolax] 10 mg RECTAL DAILY PRN PRN Reason: Constipation Cholecalciferol [Vitamin D3 (25 Mcg = 1000 Iu)] 1,000 unit PO DAILY@1700 Cyanocobalamin [Vitamin B-12] 1,000 mcg PO DAILY@1700 HYDROcodone/APAP 5-325MG [[place] 5-325] 1 tab PO Q4HR PRN PRN Reason: Pain INSULIN LISPRO (HumaLOG) [humaLOG] See Protocol SQ ACHS Magnesium Hydroxide [Milk of Magnesia] 2,400 mg PO DAILY PRN PRN Reason: Constipation Na Phos,M-B/Na Phos,Di-Ba [Fleet Adult] 133 ml RECTAL DAILY PRN PRN Reason: Constipation Vancomycin HCl in 5 % Dextrose [Vancomycin 1 Gram/250 ml-D5w] 1 gm IV TUTHSA Discharge Medication List Folic Acid-Vit B Complex-Vit C [Nephrocaps] 1 cap PO DAILY@1700 06/06/16 [History] Clopidogrel [Plavix] 75 mg PO DAILY #30 tab 11/22/16 [Rx] Aspirin EC [Ecotrin Low Dose] 81 mg PO DAILY@1700 02/15/18 [History] Atorvastatin [Lipitor] 80 mg PO HS 02/15/18 [History] Calcium Acetate [PhosLo] 1,334 mg PO AC-BID@0700,1600 02/15/18 [History] Calcium Carb-Mag Carb-Folic [Magnebind 400] 1 tab PO AC-TID 02/15/18 [History] Furosemide [Lasix] 40 mg PO DAILY@0800 02/15/18 [History] Lisinopril [Zestril] 10 mg PO HS 02/15/18 [History] Citalopram Hydrobromide [CeleXA] 20 mg PO DAILY 05/04/19 [History] Acetaminophen Tab [Tylenol] 650 mg PO Q6HR PRN tab 08/12/19 [Rx] Insulin Detemir (Levemir) [Levemir] 10 unit SQ QAM@0700 syr 08/15/19 [Rx] Bisacodyl [Dulcolax] 10 mg RECTAL DAILY PRN 08/18/19 [History] Cholecalciferol [Vitamin D3 (25 Mcg = 1000 Iu)] 1,000 unit PO DAILY@1700 08/18/19 [History] Cyanocobalamin [Vitamin B-12] 1,000 mcg PO DAILY@1700 08/18/19 [History] HYDROcodone/APAP 5-325MG [[place] 5-325] 1 tab PO Q4HR PRN 08/18/19 [History] INSULIN LISPRO (HumaLOG) [humaLOG] See Protocol SQ ACHS 08/18/19 [History] Magnesium Hydroxide [Milk of Magnesia] 2,400 mg PO DAILY PRN 08/18/19 [History] Na Phos,M-B/Na Phos,Di-Ba [Fleet Adult] 133 ml RECTAL DAILY PRN 08/18/19 [History] Vancomycin HCl in 5 % Dextrose [Vancomycin 1 Gram/250 ml-D5w] 1 gm IV TUTA 08/18/19 [History] Discharge Disposition: - Preliminary Cause of Preliminary Cause of : Sepsis secondary to osteomyelitis or pneumonia
--- NOTE | 2019-08-20 14:43 | CDI ---
Documentation Clarification Form Date: 08/20/19 From: Nyla Smith Phone: If you have a question regarding this query, please contact Sloane Palacios at [phone] between 8am and 5pm. Admit Date: 08/18/2019 5:13:00 PM Patient Name: Margarita Bloom Visit Number: [id number] Discharge Date: 08/18/2019 10:15:00 PM ATTENTION: The Clinical Documentation Specialists (CDI) and [facility] Coding Staff appreciate your assistance in clarifying documentation. Please respond to the clarification below the line at the bottom and electronically sign. The CDI & [facility] Coding staff will review the response and follow-up if needed. Please note: Queries are made part of the Legal Health Record. If you have any questions, please contact the author of this message via ITS. Dr. Lavern Moe Documentation states: Patient presented with sepsis, septic shock, possible pneumonia, possible osteomyelitis History/Risk Factors: Sepsis, CHF, ESRD, CAD, previous [place] Clinical indicators: elevated troponin Abnormal Lab Value: 1.220, 1.090 Treatment: Patient before treatment. Clinical significance of diagnostic testing and treatment CANNOT be assumed or coded without physician documentation of significance if any. Please clarify what the abnormal laboratory signifies: Disease process, please specify Infectious process, please specify Abnormal Lab Value Unable to determine Other, please specify Unable to determine as patient was not seen by me. JESSICAD
--- NOTE | 2019-08-20 14:58 | CDI ---
Documentation Clarification Form Date: 08/20/2019 2:56:00 PM From: Nyla Smith Phone: If you have a question regarding this query, please contact Sloane Palacios at [phone] between 8am and 5pm. Admit Date: 08/18/2019 5:13:00 PM Patient Name: Margarita Bloom Visit Number: [id number] Discharge Date: 08/18/2019 10:15:00 PM ATTENTION: The Clinical Documentation Specialists (CDI) and [facility] Coding Staff appreciate your assistance in clarifying documentation. Please respond to the clarification below the line at the bottom and electronically sign. The CDI & [facility] Coding staff will review the response and follow-up if needed. Please note: Queries are made part of the Legal Health Record. If you have any questions, please contact the author of this message via ITS. Dr. Lavern Moe Altered Mental Status was documented in the ED note. History/Risk Factors: Sepsis, acute hypoxic respiratory failure, septic shock, possible pneumonia, possible osteomyelitis. Clinical Indicators: Patient is lethargic is documented in the nursing documentation Labs: Lactic acid 18.3, troponin 1.220, BNP 80,300, creatinine 4.27, AST 204, ALT 82, Alk phos 141, creatine kinase 336, X Ray: CXR - New right pleural effusion compared to old exam. Mild pulmonary congestion without overt heart failure. CT: Brain CT - Cerebral atrophy. No acute intracranial abnormality. No change. Treatment: IV Levophed, IV Zosyn, 4 liter fluid bolus In your professional opinion, please clarify the etiology of the Altered Mental Status, if known. Delirium (specify cause): Dementia (if know, specify Type and if with/without Behavioral Disturbance) Encephalopathy (specify Type and Underlying Medical Illness) Other condition (please specify) Unable to determine Patient was not seen by me or any other hospitalist [facility]
== END 2019-08-18 22:15 | disposition expired | DRG 871 ==
LOC: EC 11:36 → 2SICU 17:13
PROVIDERS: ADMIT Internal Medicine; ATTEND Internal Medicine
PROC: 5A1935Z Respiratory Ventilation, Less than 24 Consecutive Hours (ICD-10-PCS; principal; 2019-08-18)
PROC: 0BH17EZ Insertion of Endotracheal Airway into Trachea, Via Natural or Artificial Opening (ICD-10-PCS; 2019-08-18)
PROC: 05HY33Z Insertion of Infusion Device into Upper Vein, Percutaneous Approach (ICD-10-PCS; 2019-08-18)
PROC: 5A12012 Performance of Cardiac Output, Single, Manual (ICD-10-PCS; 2019-08-18)
DX: A41.9 Sepsis, unspecified organism (principal); J18.9 Pneumonia, unspecified organism; J96.01 Acute respiratory failure with hypoxia; R65.21 Severe sepsis with septic shock; N18.6 End stage renal disease; I13.0 Hypertensive heart and chronic kidney disease with heart failure and stage 1 through stage 4 chronic kidney disease, or unspecified chronic kidney disease; M86.9 Osteomyelitis, unspecified; I46.9 Cardiac arrest, cause unspecified; I50.9 Heart failure, unspecified; E11.22 Type 2 diabetes mellitus with diabetic chronic kidney disease; E11.69 Type 2 diabetes mellitus with other specified complication; R41.82 Altered mental status, unspecified; R77.9 Abnormality of plasma protein, unspecified; E78.5 Hyperlipidemia, unspecified; F32.9 Major depressive disorder, single episode, unspecified; I25.10 Atherosclerotic heart disease of native coronary artery without angina pectoris; I25.2 Old myocardial infarction; N39.3 Stress incontinence (female) (male); Z79.02 Long term (current) use of antithrombotics/antiplatelets; Z79.4 Long term (current) use of insulin; Z79.82 Long term (current) use of aspirin; Z79.899 Other long term (current) drug therapy; Z88.8 Allergy status to other drugs, medicaments and biological substances; Z90.49 Acquired absence of other specified parts of digestive tract; Z99.2 Dependence on renal dialysis; Z95.5 Presence of coronary angioplasty implant and graft; Z89.519 Acquired absence of unspecified leg below knee; Z87.440 Personal history of urinary (tract) infections; Z86.14 Personal history of Methicillin resistant Staphylococcus aureus infection; Z98.42 Cataract extraction status, left eye; Z98.41 Cataract extraction status, right eye; Z96.1 Presence of intraocular lens; Z80.1 Family history of malignant neoplasm of trachea, bronchus and lung; Z82.49 Family history of ischemic heart disease and other diseases of the circulatory system; Z83.3 Family history of diabetes mellitus; Z83.79 Family history of other diseases of the digestive system
CPT/HCPCS: 30999; 36415; 36556; 70450; 71045; 71046; 80053; 82550; 83605; 83880; 84484; 85025; 85610; 85730; 87040; 93005; 94002; 96361; 96365; 96366; 96368; 96375; 99291